=== PATIENT | male | born 1960 | race Caucasian/White ===

== ENCOUNTER 2016-12-28 08:40 | Day surgery (SDC) | payer OTHER ==
[2016-11-21 15:24] LABS: BASO % 0.2 %; BASO ABS # 0.03 K/uL (0-0.2); COMPLETE YES; EOS % 3.9 %; HEMATOCRIT 42.8 % (42-52); IG% 0.4 %; LYMPH % 27.4 %; LYMPH ABS # 3.77 K/uL (1.2-3.4); MEAN CELL VOLUME 84.8 fL (80-100); MEAN CORPUSCULAR HEMOGLOBIN 29.3 pg (25-34); MEAN CORPUSCULAR HGB CONC 34.6 g/dl (32-36); MEAN PLATELET VOLUME 9.1 fL (7.4-10.4); MONO % 5.6 %; NEUT % 62.5 %; PLATELET COUNT 325 K/uL (130-400); RED BLOOD COUNT 5.05 M/uL (4.7-6.1); WHITE BLOOD COUNT 13.75 K/uL (4.8-10.8)
[2016-11-21 15:34] LABS: URINE APPEARANCE CLEAR (CLEAR); URINE BILIRUBIN NEG (NEG); URINE COLOR YELLOW; URINE NITRITE NEG (NEG); URINE PH 5.5 (4.5-7.5); URINE SPECIFIC GRAVITY 1.019 (1.000-1.030); UROBILINOGEN NEG (NEG)
[2016-11-21 15:38] LABS: MANUAL MICROSCOPIC REQUIRED? NO; REVIEW REQ? NO
[2016-11-21 15:40] LABS: BLOOD UREA NITROGEN 16 mg/dl (7-18); BUN/CREATININE RATIO 16.4 (10-20); CALCIUM 9.9 mg/dl (8.5-10.1); CARBON DIOXIDE 30 mmol/L (21-32); CHLORIDE 104 mmol/L (98-107); GLUCOSE 103 mg/dl (70-99); SODIUM 141 mmol/L (136-145)
[2016-12-14 10:27] VITALS: BMI 38.0
--- NOTE | 2016-12-21 09:34 | HISTORY & PHYSICAL EXAMINATION ---
DATE OF ADMISSION: 12/28/2016 CHIEF COMPLAINT: Left shoulder pain. HISTORY OF PRESENT ILLNESS: The patient is a 56-year-old male who is here for left shoulder pain. The patient states that the symptoms were nontraumatic in nature and that the pain is getting worse and more consistent. He describes the pain as aching. The patient has tried cortisone injections and physical therapy without any relief. MRI of the left shoulder shows a near complete full thickness tear of the supraspinatus tendon. PAST MEDICAL HISTORY: Significant for osteoarthritis. PAST SURGICAL HISTORY: Right TKA, SI fusion, L1 through L5 fusion. SOCIAL HISTORY: Denies alcohol use. The patient quit smoking in 2008. Denies IV drug use or illegal drug use. He lives in a 1 story house. Currently on disability. FAMILY HISTORY: Noncontributory. MEDICATIONS: 50 mg Ultram, lorazepam 1 mg. ALLERGIES: CAT DANDER, CODEINE. REVIEW OF SYSTEMS: He denies fevers, chills, headaches, weight loss, double vision, blurry vision, sore throat, hearing loss, tremors, dizziness, numbness or tingling, tired, thirsty, hot and cold intolerance, abdominal pain, nausea, vomiting, diarrhea, heartburn, chest pain, swelling into the legs or feet, frequency, going to the bathroom, pain or burning with urination, wheezing, cough, shortness of breath, depression, thoughts to harm himself or harm others, nervousness or anxiousness. He is positive for joint pain and swelling of the left shoulder. OBJECTIVE: GENERAL APPEARANCE: The patient is a 56-year-old male sitting in exam room, in no acute distress. He is well dressed, well nourished. He is awake, alert and oriented x3. VITAL SIGNS: He is 5 foot 4 inches tall. He weighs 231 pounds. Blood pressure is 138/70. HEAD, EYES, EARS, NOSE, AND THROAT: Extraocular movements are intact, PERRLA, mucosa was moist. No septal deviation. NECK: Supple with no lymphadenopathy, no JVD, no thyromegaly. HEART: Regular rate and rhythm but no murmurs or gallops. LUNGS: Clear to auscultation with no wheezing or rhonchi. ABDOMEN: Soft, nontender, nondistended. Normal bowel sounds. No hepatosplenomegaly. EXTREMITIES: Paying particular attention to the patient's left upper extremity, he is able to actively flex to 150 degrees, abduct to 90 degrees, externally rotate to 75 degrees. He does have a positive Neer impingement, positive Nunes-Morgan, positive empty can test, does have decreased strength in all ranges of motion. IMAGING: MRI of the left shoulder shows a near complete full thickness tear of the supraspinatus tendon, infraspinatus and subscapularis tendinopathy and mild acromioclavicular osteoarthritis. IMPRESSION: Left shoulder rotator cuff tear. PLAN: The patient is scheduled for a left shoulder arthroscopy, rotator cuff repair, subacromial decompression, distal clavicle excision. The patient has noticed that this has decreased his quality of life. He has tried cortisone injections and physical therapy without any relief. He would like to proceed with a left shoulder arthroscopy, rotator cuff repair, subacromial decompression, distal clavicle excision. Risks and benefits to surgery were discussed that were included but not limited to DVT, pain, stiffness, need for revision surgery, failure to relieve all symptoms, retear, damage to blood vessels, damage to nerves, and risks of anesthesia were all discussed and he wishes to proceed. All questions were answered to his satisfaction. ALEJANDRA
[~2016-12-28] VITALS: Ht 165.1 cm; Wt 104.5 kg
[~2016-12-28 08:40] MED LIST: ACET-1256 PO; ASCA500 PO; ATV/1 PO; BUPIVACAINE 0.25% 30 ML VIAL ONE; CHOL1000 PO; GLUC1CAP35 PO; LACTATED RINGER'S 1000ML 1,000 ML IV SCH; MULT-506 PO; ROPIVACAINE 0.5% 5 MG/ML 30 ML VIAL ONE; TRAM-10 PO
[2016-12-28] MEDS ORDERED: ONDANSETRON INJ 2 MG/ML 2 ML VIAL ONE ×2 (09:01→10:45)
[2016-12-28] MEDS ORDERED: PROPOFOL IV EMULSION 10 MG/ML 20 ML VIAL IV ONE ×2 (09:01→11:54)
[2016-12-28] MEDS ORDERED: NEOSTIGMINE METHYLSULFATE 5 MG/5 ML SYR ONE ×2 (09:01→12:15)
[2016-12-28] MEDS ORDERED: GLYCOPYRROLATE INJ 0.2 MG/ML VIAL ONE ×2 (09:01→12:15)
[2016-12-28] MEDS ORDERED: MIDAZOLAM HCL 1 MG/ML 2ML VIAL ONE ×2 (09:01→09:18)
[2016-12-28] MEDS ORDERED: DEXAMETHASONE SOD INJ 4 MG/ML VIAL ONE ×2 (09:01→10:45)
[2016-12-28] MEDS ORDERED: LIDOCAINE HCL 2% 2 ML VIAL (20MG/ML) ONE (09:01)
[2016-12-28] MEDS ORDERED: FENTANYL CITRATE INJ 50 MCG/1 ML 2 ML VIAL ONE ×2 (09:01→10:20)
[2016-12-28] MEDS ORDERED: ROCURONIUM BROMIDE 10 MG/ML 5 ML VIAL ONE (09:01)
[2016-12-28 09:14] VITALS: BP 137/69; PULSE 91; TEMP 36.9; O2SAT 95; Ht 165.1 cm; Wt 104.5 kg
--- NOTE | 2016-12-28 09:25 | History & Physical Bridge Note ---
H&P Re-Evaluation Bridge Note: I have examined the patient, reviewed the History & Physical and in the interval since the performance of the History & Physical I have noted the following changes of clinical significance: No changes noted
[2016-12-28] MEDS ORDERED: NURSING VERBAL MED ORDER ONE ×2 (09:30→13:25)
[2016-12-28] MEDS ORDERED: CEFAZOLIN IV 2,000 MG/60 ML D5W IV ONE (09:34)
[2016-12-28] MEDS ORDERED: BUPIVACAINE 0.5 % 5 MG/1 ML MPF 30ML VIAL ONE (09:51)
[2016-12-28] MEDS ORDERED: LIDOCAINE/EPINEPHRINE 1% 20 ML VIAL ONE (09:51)
[2016-12-28] MEDS ORDERED: EpHEDrine SULFATE INJ 50 MG/ML AMP IV PRN (10:00)
[2016-12-28] MEDS ORDERED: ATROPINE SULFATE 0.1 MG/ML 5ML SYR IV PRN (10:00)
[2016-12-28] MEDS ORDERED: ONDANSETRON INJ 2 MG/ML 2 ML VIAL IV PRN ×2 (10:00→13:30)
[2016-12-28] MEDS ORDERED: PHENYLEPHRINE HCL INJ 10 MG/ML VIAL ONE (10:45)
[2016-12-28] MEDS: HYDROmorphone INJ 1 MG/ML SYR IV PRN ×6 (12:52→13:30)
--- NOTE | 2016-12-28 13:28 | [facility] Post Operative Brief Note ---
Immediate Operative Summary Operative Date Dec 28, 2016. Pre-Operative Diagnosis Left shoulder rotator cuff tear, impingement, ac jt oa, labral tear, synovitis Post-Operative Diagnosis same as preoperative Procedure(s) Performed Left Shoulder Arthroscopy Subacromial Decompression, extensive debridement, Distal Clavicle Excision, Rotator Cuff Repair, extensive debridement Surgeon Dr. Osborne Ux Developer Surgeon(s) Franklin Araiza PA-C Estimated Blood Loss 5ML Findings above Specimens none Drains 0 Anesthesia geta Complication(s) None Disposition Recovery Room / PACU
[2016-12-28] MEDS ORDERED: OXYCODONE HCL IR 5 MG TAB (IMMEDIATE RELEASE) PO PRN (13:30)
[2016-12-28] MEDS ORDERED: ACETAMINOPHEN 325 MG TAB PO PRN (13:30)
[2016-12-28] MEDS ORDERED: OXYC-57 PO (13:40)
--- NOTE | 2016-12-28 13:50 | Discharge Instructions ---
Discharge Instructions Date of Service Dec 28, 2016. Admission Reason for Admission: Left Shoulder Degenerative Joint Disease, Impingem Discharge Discharge Diagnosis / Problem: Left shoulder Rotator cuff repair, SAD, DCE Discharge Goals Goal(s): Decrease discomfort, Improve function Activity Recommendations Activity Limitations: per Instructions/Follow-up section . Instructions / Follow-Up Instructions / Follow-Up [facility] DISCHARGE INSTRUCTIONS: ROTATOR CUFF REPAIR SELF CARE INSTRUCTIONS A. You are permitted to loosen your sling/immobilizer to move your elbow, wrist , and hand to prevent stiffness. You should use your well arm (good arm) to assist the operated extremity when trying to raise the arm away from the body, hygiene purposes. Do NOT actively try to use/engage your shoulder muscles in operative arm at this time. You should NOT do overhead activity, lifting, or attempt to reach behind your back. B. You may/may not be instructed to start Physical Therapy upon discharge depending upon the size and difficulty of the repair. You will be provided a prescription for therapy with specific restrictions, if needed, at time of discharge. C. At 48 hours post-operatively, you may change your dressing. (Leave white steri-strips intact if present). Use band-aids and change daily. You are allowed to shower at this time and get the incision area wet, but DO NOT soak or submerge incision area in water. (No baths, swimming pools, hot tubs) D. Do NOT apply soap or any ointment/lotions directly over incision. E. You may use ice as needed to operative shoulder SPECIAL CARE INSTRUCTIONS: VERY IMPORTANT TO READ AND REVIEW A. There are a few signs you need to watch for after you are home. Call [facility] at [phone] if you experience any of the following: a. Increased severe shoulder pain. Some pain is expected especially when you exercise b. Increased swelling in your shoulder or arm; pain or swelling in either upper extremity. (Note: swelling and stiffness is normal and expected for several weeks post op, depending on type of shoulder surgery you had). c. Any fluid or drainage from the incision; redness of the incision. d. Shortness of breath or chest pain. B. Please call [facility] at [phone] if you have any questions or concerns about your operation or recovery. C. Call your physician if: a. Temperature is greater than 101 degrees (F). b. Pain is not relieved by prescribed pain medications. c. Increase drainage or redness from incision. d. Unanswered questions or concerns. D. Pain Medication: a. You will be prescribed pain medication upon discharge that should last till your first post-operative appointment. b. If you experience nausea and/or skin rash, discontinue this medication and contact our office for an alternative medication. c. Caution- narcotic pain medication can cause constipation. FOLLOW UP VISIT: Please call [facility] at [phone] to schedule a follow up appointment 10-14 days from your surgery date. Current Hospital Diet Patient's current hospital diet: Regular Diet Discharge Diet Recommended Diet: Regular Diet Procedures Procedures Performed: Left Shoulder Arthroscopy Subacromial Decompression, extensive debridement, Distal Clavicle Excision, Rotator Cuff Repair, extensive debridement Pending Studies Studies pending at discharge: no Medical Emergencies . Who to Call and When: Medical Emergencies: If at any time you feel your situation is an emergency, please call 911 immediately. . Non-Emergent Contact Non-Emergency issues call your: Surgeon Call Non-Emergent contact if: temperature is above 101.5, wound has increased drainage, wound has increased redness, wound has increased pain . "Provider Documentation" section prepared by Franklin Araiza. VTE Core Measure Inpt VTE Proph given/why not?: Treatment not indicated [place] Drug Monitoring Program Search Results: patient reviewed within database, no issues identified
--- NOTE | 2016-12-28 13:52 | OPERATIVE REPORT ---
DATE OF OPERATION: 12/28/2016 PREOPERATIVE DIAGNOSES: Left shoulder rotator cuff tear, impingement, acromioclavicular joint arthritis, labral tear, and synovitis. POSTOPERATIVE DIAGNOSES: Same. PROCEDURES: Left shoulder rotator cuff repair, subacromial decompression, distal clavicle excision, and extensive debridement. SURGEON: Dr. Ramakrishna Osborne. FUGITIVE DETECTIVE: Franklin Araiza PA-C who was necessary for assistance of procedure with positioning, prepping, draping, retraction and closure. ANESTHESIA: General endotracheal anesthesia with interscalene block. SPECIMENS: None. COMPLICATIONS: None. ESTIMATED BLOOD LOSS: Minimal. INDICATIONS: The patient is a 56-year-old male with progressive left shoulder pain. MRI demonstrated full thickness rotator cuff tear. He wished to proceed with arthroscopic repair. The risks, benefits, and alternatives of surgery including, but not limited to infection, DVT, pain, stiffness, need for urgent surgery, failure to relieve all symptoms, damage to blood vessels, damage to nerves, and risks of anesthesia were discussed with the patient and he wished to proceed. DESCRIPTION OF PROCEDURE: The patient was identified and the laterality was confirmed and marked. He received a preoperative antibiotic as well as interscalene block. He was transferred to the operating room, placed in supine position, and induced under general endotracheal anesthesia. He was then safely transferred to lateral decubitus position, secured by lara bag and an axillary roll was placed. All pressure points well padded. Limb was placed in 10 pounds of lateral traction and then prepped and draped in usual sterile manner with ChloraPrep. Portal sites were anesthetized with lidocaine. I made a standard posterior viewing portal, made a stab incision, bluntly entered the glenohumeral joint and under spinal localization, established anterior superior lateral portal. He had degenerative change of the anterior superior and posterior aspect of the glenoid labrum. This was debrided back to a stable base utilizing a shaver. The long head of biceps tendon was relatively normal. Subscapularis was intact. He had some minor degenerative changes of the cartilage of the humeral head and glenoid that was debrided. He had full thickness rotator cuff tear seen through articular side. All instrumentations removed from the joint. I then entered the subacromial space and established a lateral portal. I debrided the rotator cuff tear back to good healthy tissue. It measured about 2 cm in diameter after appropriate debridement. Then through a stab incision, I placed a 5.5-mm triple-loaded Healicoil suture anchor, passed the sutures in a horizontal mattress fashion with a scorpion. I then placed an additional suture anchor posteromedially and passed 2 sutures through this. I then tied from posterior to anterior utilizing sliding [place] knots, reinforced with 3 half hitches on alternating posts. I then took one suture limb from each knot, placed it in a 5.5-mm footprint anchor and placed 1 anterolaterally and another posterolaterally completing double-row construct. I then released the CA ligament with cautery and performed a subacromial decompression first removing the anterior inferior spur from laterally and then completing with a cutting block technique. I then performed a distal clavicle excision, removing a total of 10 mm of bone. All instrumentation was removed from the shoulder. Port sites were closed with nylon. Sterile dressing was applied and sling placed. All needle and sponge counts were correct at the end of the procedure. The patient was transferred to the PACU in stable condition without apparent complication. I attest to the content of the Intraoperative Record and any orders documented therein. Any exceptio ns are noted below.
[2016-12-28 14:00] VITALS: BP 118/66; PULSE 106; TEMP 36.5; O2SAT 93
[2016-12-28 14:30] VITALS: BP 113/50; PULSE 99; O2SAT 93
[2016-12-28 15:00] VITALS: BP 113/50; PULSE 101; TEMP 36.5; O2SAT 94
--- NOTE | 2016-12-28 17:20 | Anesthesiology Progress Note ---
Anesthesia Post Op Note Date & Time Dec 28, 2016 at 17:21 Vital Signs Pain Intensity: 6 Vital Signs Past 12 Hours Date Time Temp Pulse Resp B/P Pulse Ox O2 Delivery O2 Flow Rate FiO2 12/28/16 15:00 36.5 101 20 113/50 94 Room Air 12/28/16 14:30 99 20 113/50 93 Room Air 12/28/16 14:00 36.5 106 20 118/66 93 Room Air 12/28/16 13:50 36.2 90 16 131/74 94 Room Air 12/28/16 13:40 36.2 81 16 138/78 93 Nasal Cannula 2 12/28/16 13:30 93 16 130/82 93 Nasal Cannula 2 12/28/16 13:20 96 16 152/69 91 Nasal Cannula 2 12/28/16 13:10 93 16 134/63 91 Nasal Cannula 2 12/28/16 13:00 91 13 134/66 87 Mask 2 12/28/16 12:50 91 16 146/62 90 Mask 10 12/28/16 12:40 36.2 98 18 154/78 90 Mask 10 12/28/16 09:14 36.9 91 20 137/69 95 Room Air Notes Mental Status: alert / awake / arousable, participated in evaluation Pt Amnestic to Procedure: Yes Nausea / Vomiting: adequately controlled Pain: adequately controlled Airway Patency, RR, SpO2: stable & adequate BP & HR: stable & adequate Hydration State: stable & adequate Anesthetic Complications: no major complications apparent
[2017-04-25] MEDS ORDERED: IBUP1CAP9 PO (13:56)
[2017-04-25] MEDS ORDERED: TRAM-10 PO (13:56)
[2017-04-25] MEDS ORDERED: NAPR-960 PO (13:56)
== END 2016-12-28 15:00 | disposition home or self-care (01) ==
LOC: C.ACU 08:40
PROVIDERS: ATTEND Orthopaedic Surgery
DX: M75.102 Unspecified rotator cuff tear or rupture of left shoulder, not specified as traumatic (principal); M75.42 Impingement syndrome of left shoulder; M19.012 Primary osteoarthritis, left shoulder; M65.9 Synovitis and tenosynovitis, unspecified; M17.9 Osteoarthritis of knee, unspecified; Z98.1 Arthrodesis status

== ENCOUNTER 2017-09-16 08:47 | Emergency (ER) | payer OTHER ==
[~2017-09-16 08:47] MED LIST changes: -BUPIVACAINE 0.25% 30 ML VIAL ONE; +IBUP1CAP9 PO; -LACTATED RINGER'S 1000ML 1,000 ML IV SCH; +NAPR-960 PO; -ROPIVACAINE 0.5% 5 MG/ML 30 ML VIAL ONE
[2017-09-16 08:52] VITALS: TEMP 36.8
[2017-09-16] MEDS ORDERED: MoRPHine SULFATE 4 MG/ML 1 ML CARP\\VIAL IV STA ×2 (09:03→10:58)
[2017-09-16] MEDS ORDERED: OPTIRAY 320 IV PRN (09:15)
[2017-09-16 09:31] LABS: BASO % 0.2 %; BASO ABS # 0.04 K/uL (0-0.2); COMPLETE YES; EOS % 4.3 %; HEMATOCRIT 39.8 % (42-52); IG% 0.6 %; LYMPH % 9.5 %; LYMPH ABS # 1.96 K/uL (1.2-3.4); MEAN CELL VOLUME 86.7 fL (80-100); MEAN CORPUSCULAR HEMOGLOBIN 29.4 pg (25-34); MEAN CORPUSCULAR HGB CONC 33.9 g/dl (32-36); MONO % 4.3 %; NEUT % 81.1 %; PLATELET COUNT 324 K/uL (130-400); RED BLOOD COUNT 4.59 M/uL (4.7-6.1); WHITE BLOOD COUNT 20.66 K/uL (4.8-10.8)
[2017-09-16 09:45] LABS: PARTIAL THROMBOPLASTIN RATIO 1.2; PROTHROMBIN TIME (PATIENT) 10.7 SECONDS (9.0-12.0)
--- NOTE | 2017-09-16 09:55 | DIAGNOSTIC IMAGING REPORT ---
L RIBS UNILATERAL WITH PA CHEST (5 views) CLINICAL HISTORY: Left-sided chest pain. COMPARISON STUDY: No previous studies for comparison. FINDINGS: The erect chest reveals no pneumothorax. There is no lobar consolidation. No left-sided rib fractures are visualized. There are presumed postsurgical changes involve the distal left clavicle. IMPRESSION: No evidence of pneumothorax. No left-sided rib fractures are visualized. Electronically signed by: Keenan Boyle M.D. 09/16/2017 9:54 AM Dictated Date/Time: 09/16/2017 9:53 AM
[2017-09-16 10:02] LABS: ALKALINE PHOSPHATASE 118 U/L (45-117); ALT/SGPT 40 U/L (12-78); AST/SGOT 29 U/L (15-37); BLOOD UREA NITROGEN 18 mg/dl (7-18); BUN/CREATININE RATIO 21.8 (10-20); CALCIUM 8.7 mg/dl (8.5-10.1); CARBON DIOXIDE 26 mmol/L (21-32); CHLORIDE 104 mmol/L (98-107); CREATININE 0.84 mg/dl (0.60-1.40); GLUCOSE 160 mg/dl (70-99); POTASSIUM 4.5 mmol/L (3.5-5.1); SODIUM 134 mmol/L (136-145)
--- NOTE | 2017-09-16 10:52 | DIAGNOSTIC IMAGING REPORT ---
ABD/PELVIS IV CONTRAST ONLY CLINICAL HISTORY: 57 years-old Male presenting with left lower rib pain/fx, abd wall bruising, coughing for 2 to 3 days, generalized pain in the abdomen, altered mental status. TECHNIQUE: Multidetector CT of the abdomen and pelvis was performed after the administration of intravenous contrast. IV contrast: 94 mL of Optiray 320. A dose lowering technique was used consistent with the principles of ALARA (as low as reasonably achievable). COMPARISON: None. CT DOSE (mGy.cm): The estimated cumulative dose is 1582.05 mGy.cm. FINDINGS: Clinical Care Leader topogram: Posterior lumbar fusion hardware and screw fixation of the left sacroiliac joint. Lung bases: Slight herniation of the left lower lobe through the eighth intercostal space along the posterior lateral left chest wall. Dependent opacities in the left lower lobe with smooth interlobular septal thickening. The right lung demonstrates only minimal dependent changes consistent with atelectasis and no septal thickening. Mitral annular calcification suggested. High density dependent material within the left pleural effusion concerning for hemothorax. Liver: Normal morphology. No liver lesion. Patent hepatic vasculature. Biliary: No intrahepatic or extrahepatic biliary ductal dilatation. Normal gallbladder. Pancreas: Normal. Spleen: Normal. Adrenal glands: Normal. Kidneys and ureters: Punctate nonobstructing calculus in the right kidney. No hydronephrosis. Normal renal enhancement. Ureters normal. Bladder: Normal. Pelvic organs: Prostate and seminal vesicles normal. Bowel: Few scattered colonic diverticula in the descending and sigmoid colon. Mild stool burden in the cecum. Fecal material in the distal small bowel and terminal ileum consistent with delayed transit. Normal appendix noted. Peritoneal cavity: No free fluid or intraperitoneal gas. Lymph nodes: Few subcentimeter bilateral external iliac lymph nodes likely reactive. Additional few prominent portacaval lymph nodes possibly also reactive. Vasculature: Atherosclerosis of the normal caliber abdominal aorta. IVC patent. Abdominal wall: Extensive infiltration and chest and abdominal wall muscular edema along the lower left posterior lateral chest as well as the left flank and left anterolateral abdomen. Skin thickening noted in the lower left ventral abdomen. No focal soft tissue hematoma. Musculoskeletal: 3 screw fixation across the left sacroiliac joint. Posterior lumbar fusion hardware with interbody spacers noted in the lower lumbar spine. Radiolucency surrounds the bilateral L3 screws, raising concern for loosening or infection. Laminectomy defects also noted at these levels. No commencing evidence of a nondisplaced rib fracture within the visualized portion of the lower chest. IMPRESSION: 1. Findings concerning for small left hemothorax. The presence of asymmetric opacities and interlobular septal thickening in the left lung base raise concern for pulmonary contusion in the setting of trauma. Slight herniation of left lung may be posttraumatic. No evidence of rib fracture within the [id number]. 2. Extensive left chest and abdominal wall contusion with muscular edema. 3. No acute intra-abdominal injury. 4. Radiolucency surrounds the bilateral L3 screws raising concern for loosening or infection. Electronically signed by: Ramakrishna Herrera M.D. 09/16/2017 10:51 AM Dictated Date/Time: 09/16/2017 10:41 AM
[2017-09-16] MEDS ORDERED: LEVOFLOXACIN 250 MG TAB PO STA (11:03)
[2017-09-16] MEDS ORDERED: LEVO-366 PO (11:13)
[2017-09-16] MEDS ORDERED: OXYC-106 PO (11:13)
--- NOTE | 2017-09-16 11:13 | EMERGENCY ROOM VISIT NOTE ---
History Report prepared by Jamal: Vivienne Galeana Under the Supervision of: Dr. Jensen Mensah D.O. First contact with patient: 08:59 Chief Complaint: PAIN (GENERALIZED) Stated Complaint: PAIN EVERYWHERE History of Present Illness The patient is a 57 year old male who presents to the Emergency Room with complaints of persistent generalized pain that began three days ago. The patient states that three days ago he sneezed and states that he felt as if he broke a rib. He states that he has been trying to deal with the pain, but states that he woke this morning with increased pain. The patient states that he feels he is bleeding internally. He states that his pain is worsened with movement. The patient states that he has a bruise to his left abdomen. He states that he recently was sick with flu like symptoms. Per nursing staff the patient took his own Tramadol today when he arrived to the emergency department. The patient states that he takes Tramadol for his chronic pain. He denies being on any blood thinners. Source of History: patient Onset: three days ago Position: other (global) Quality: other (generalized pain) Timing: other (persistent) Modifying Factors (Worsening): movement Review of Systems See HPI for pertinent positives & negatives. A total of 10 systems reviewed and were otherwise negative. Past Medical & Surgical Surgical Problems: (1) S/P TKR (total knee replacement) Family History No pertinent family history stated. Social History Smoking Status: Unknown if Ever Smoked Marital Status: single Occupation Status: unemployed, disabled Current/Historical Medications Scheduled Levofloxacin (Levaquin), 500 MG PO DAILY Scheduled PRN Lorazepam (Ativan), 1 MG PO Q6H PRN for Anxiety Oxycodone/Acetaminophen 10MG/325MG (Percocet 10MG/325MG), 1 TAB PO Q4H PRN for Pain Tramadol (Ultram), 50 MG PO Q8 PRN for Pain Allergies Coded Allergies: Cat Dander (Verified Allergy, Unknown, ITCHY EYES, SNEEZING, 09/16/17) Codeine (Verified Allergy, Unknown, GI SYMPTOMS, 09/16/17) Pt. states stomach upset and requests not to take it Physical Exam Vital Signs Date Time Temp Pulse Resp B/P (MAP) Pulse Ox O2 Delivery O2 Flow Rate FiO2 09/16/17 11:12 89 18 134/80 93 Room Air 09/16/17 10:48 88 20 131/78 93 Room Air 09/16/17 10:07 85 09/16/17 08:52 36.8 92 20 155/82 94 Room Air Physical Exam CONSTITUTIONAL/VITAL SIGNS: Reviewed / noted above. GENERAL: Non-toxic in appearance. INTEGUMENTARY: Warm, dry, and [place]. HEAD: Normocephalic. EYES: without scleral icterus or trauma. ENT/OROPHARYNX: clear and moist. LYMPHADENOPATHY/NECK: Is supple without lymphadenopathy or meningismus. CHEST WALL: Tenderness to palpation of left lower chest wall. RESPIRATORY: Lungs clear and equal. CARDIOVASCULAR: Regular rate and rhythm. GI/ABDOMEN: Soft and tender to left side of the abdomen. Large area of ecchymosis to the left lower quadrant. No organomegaly or pulsatile mass. No rebound or guarding. Normal bowel sounds. EXTREMITIES: Warm and well perfused. BACK: No CVA tenderness. NEUROLOGICAL: Intact without focal deficits. PSYCHIATRIC: normal affect. MUSCULOSKELETAL: Normally developed with good muscle tone. Medical Decision & Procedures ER Provider Diagnostic Interpretation: Radiology results as stated below per my review and radiologist interpretation: L RIBS UNILATERAL WITH PA CHEST (5 views) CLINICAL HISTORY: Left-sided chest pain. COMPARISON STUDY: No previous studies for comparison. FINDINGS: The erect chest reveals no pneumothorax. There is no lobar consolidation. No left-sided rib fractures are visualized. There are presumed postsurgical changes involve the distal left clavicle. IMPRESSION: No evidence of pneumothorax. No left-sided rib fractures are visualized. Electronically signed by: Keenan Boyle M.D. 09/16/2017 9:54 AM Dictated Date/Time: 09/16/2017 9:53 AM ABD/PELVIS IV CONTRAST ONLY CLINICAL HISTORY: 57 years-old Male presenting with left lower rib pain/fx, abd wall bruising, coughing for 2 to 3 days, generalized pain in the abdomen, altered mental status. TECHNIQUE: Multidetector CT of the abdomen and pelvis was performed after the administration of intravenous contrast. IV contrast: 94 mL of Optiray 320. A dose lowering technique was used consistent with the principles of ALARA (as low as reasonably achievable). COMPARISON: None. CT DOSE (mGy.cm): The estimated cumulative dose is 1582.05 mGy.cm. 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 Lung bases: Slight herniation of the left lower lobe through the eighth intercostal space along the posterior lateral left chest wall. Dependent opacities in the left lower lobe with smooth interlobular septal thickening. The right lung demonstrates only minimal dependent changes consistent with atelectasis and no septal thickening. Mitral annular calcification suggested. High density dependent material within the left pleural effusion concerning for hemothorax. Liver: Normal morphology. No liver lesion. Patent hepatic vasculature. Biliary: No intrahepatic or extrahepatic biliary ductal dilatation. Normal gallbladder. Pancreas: Normal. Spleen: Normal. Adrenal glands: Normal. Kidneys and ureters: Punctate nonobstructing calculus in the right kidney. No hydronephrosis. Normal renal enhancement. Ureters normal. Bladder: Normal. Pelvic organs: Prostate and seminal vesicles normal. Bowel: Few scattered colonic diverticula in the descending and sigmoid colon. Mild stool burden in the cecum. Fecal material in the distal small bowel and terminal ileum consistent with delayed transit. Normal appendix noted. Peritoneal cavity: No free fluid or intraperitoneal gas. Lymph nodes: Few subcentimeter bilateral external iliac lymph nodes likely reactive. Additional few prominent portacaval lymph nodes possibly also reactive. Vasculature: Atherosclerosis of the normal caliber abdominal aorta. IVC patent. Abdominal wall: Extensive infiltration and chest and abdominal wall muscular edema along the lower left posterior lateral chest as well as the left flank and left anterolateral abdomen. Skin thickening noted in the lower left ventral abdomen. No focal soft tissue hematoma. Musculoskeletal: 3 screw fixation across the left sacroiliac joint. Posterior lumbar fusion hardware with interbody spacers noted in the lower lumbar spine. Radiolucency surrounds the bilateral L3 screws, raising concern for loosening or infection. Laminectomy defects also noted at these levels. No commencing evidence of a nondisplaced rib fracture within the visualized portion of the lower chest. IMPRESSION: 1. Findings concerning for small left hemothorax. The presence of asymmetric opacities and interlobular septal thickening in the left lung base raise concern for pulmonary contusion in the setting of trauma. Slight herniation of left lung may be posttraumatic. No evidence of rib fracture within the [id number]. 2. Extensive left chest and abdominal wall contusion with muscular edema. 3. No acute intra-abdominal injury. 4. Radiolucency surrounds the bilateral L3 screws raising concern for loosening or infection. Electronically signed by: Ramakrishna Herrera M.D. 09/16/2017 10:51 AM Dictated Date/Time: 09/16/2017 10:41 AM Laboratory Results 09/16/17 09:20 Red Blood Count 4.59, Mean Corpuscular Volume 86.7, Mean Corpuscular Hemoglobin 29.4, Mean Corpuscular Hemoglobin Concent 33.9, Mean Platelet Volume 9.0, Neutrophils (%) (Auto) 81.1, Lymphocytes (%) (Auto) 9.5, Monocytes (%) (Auto) 4.3, Eosinophils (%) (Auto) 4.3, Basophils (%) (Auto) 0.2, Neutrophils # (Auto) 16.78, Lymphocytes # (Auto) 1.96, Monocytes # (Auto) 0.88, Eosinophils # (Auto) 0.88, Basophils # (Auto) 0.04 09/16/17 09:20 Test 09/16/17 09:20 White Blood Count 20.66 K/uL (4.8-10.8) Red Blood Count 4.59 M/uL (4.7-6.1) Hemoglobin 13.5 g/dL (14.0-18.0) Hematocrit 39.8 % (42-52) Mean Corpuscular Volume 86.7 fL (80-100) Mean Corpuscular Hemoglobin 29.4 pg (25-34) Mean Corpuscular Hemoglobin Concent 33.9 g/dl (32-36) Platelet Count 324 K/uL (130-400) Mean Platelet Volume 9.0 fL (7.4-10.4) Neutrophils (%) (Auto) 81.1 % Lymphocytes (%) (Auto) 9.5 % Monocytes (%) (Auto) 4.3 % Eosinophils (%) (Auto) 4.3 % Basophils (%) (Auto) 0.2 % Neutrophils # (Auto) 16.78 K/uL (1.4-6.5) Lymphocytes # (Auto) 1.96 K/uL (1.2-3.4) Monocytes # (Auto) 0.88 K/uL (0.11-0.59) Eosinophils # (Auto) 0.88 K/uL (0-0.5) Basophils # (Auto) 0.04 K/uL (0-0.2) RDW Standard Deviation 43.0 fL (36.4-46.3) RDW Coefficient of Variation 13.6 % (11.5-14.5) Immature Granulocyte % (Auto) 0.6 % Immature Granulocyte # (Auto) 0.12 K/uL (0.00-0.02) Prothrombin Time 10.7 SECONDS (9.0-12.0) Prothromb Time International Ratio 1.0 (0.9-1.1) Activated Partial Thromboplast Time 30.3 SECONDS (21.0-31.0) Partial Thromboplastin Ratio 1.2 Anion Gap 4.0 mmol/L (3-11) Estimated GFR () 111.9 Estimated GFR (Non- 96.5 BUN/Creatinine Ratio 21.8 (10-20) Calcium Level 8.7 mg/dl (8.5-10.1) Total Bilirubin 0.5 mg/dl (0.2-1) Direct Bilirubin 0.1 mg/dl (0-0.2) Aspartate Amino Transf (AST/SGOT) 29 U/L (15-37) Alanine Aminotransferase (ALT/SGPT) 40 U/L (12-78) Alkaline Phosphatase 118 U/L (45-117) Troponin I < 0.015 ng/ml (0-0.045) Total Protein 7.0 gm/dl (6.4-8.2) Albumin 3.3 gm/dl (3.4-5.0) Lipase 97 U/L (73-393) Laboratory results as stated above per my review. Medications Administered Medications (Trade) Dose Ordered Sig/Feliciano Route Start Time Stop Time Status Last Admin Dose Admin Morphine Sulfate (MoRPHine SULFATE INJ) 4 mg NOW STAT IV 09/16/17 09:03 09/16/17 09:06 DC 09/16/17 09:20 4 MG Morphine Sulfate (MoRPHine SULFATE INJ) 4 mg NOW STAT IV 09/16/17 10:58 09/16/17 10:59 DC 09/16/17 11:12 4 MG Levofloxacin (Levaquin Tab) 500 mg NOW STAT PO 09/16/17 11:03 09/16/17 11:04 DC 09/16/17 11:13 500 MG ED Course 0900: Previous medical records were reviewed. The patient was evaluated in room B4B. A complete history and physical examination was performed 0903: Ordered Morphine Sulfate 4 mg IV. 1058: Ordered Morphine Sulfate 4 mg IV. 1103: Ordered Levofloxacin 500 mg PO. 1105: I reevaluated the patient and he is resting comfortably. I discussed the test results with him and I discussed the treatment plan. He verbalized complete understanding and agreement. The patient is ready to go home. Medical Decision The patient is a 57 year old male who presents to the ED with complaints of generalized pain. Differential diagnosis includes rib fracture, torn muscle, ruptured blood muscle, abdominal bleeding This is a 57-year-old male who presents the ED with a chief complaint of left lower chest wall and left abdominal pain. The patient reports that his symptoms started after sneezing several days ago. It worsened over the past 24- 48 hours. His exam reveals tenderness to the left chest wall and left abdominal region. There is some noted ecchymosis to the left lower abdominal region. A chest x-ray and CT scan of the abdomen were performed. This revealed a small left hemothorax and possible pulmonary contusion. There was also noted to be contusions in the left chest and abdominal wall. There is muscular edema. The patient's white blood cell count was 20.6. Hemoglobin is 13.5. Complete metabolic panel was unremarkable. The patient was given morphine for pain. Because of his leukocytosis as well as his recent chest wall injury, he will be started on Levaquin. He does not appear to be septic or toxic or infected at this time. He has no fevers. The patient will be discharged on Percocet. He is felt to be stable for discharge with outpatient follow-up. He will return if he gets worse. Medication Reconcilliation Current Medication List: was personally reviewed by me Blood Pressure Screening Patient's blood pressure: Elevated blood pressure Blood pressure disposition: Elevated BP felt to be situational, Did not require urgent referral Impression Primary Impression: Contusion of left chest wall Additional Impressions: Abdominal wall contusion Hemothorax Leukocytosis Scribe Attestation The scribe's documentation has been prepared under my direction and personally reviewed by me in its entirety. I confirm that the note above accurately reflects all work, treatment, procedures, and medical decision making performed by me. Departure Information Dispostion Home / Self-Care Prescriptions Oxycodone/Acetaminophen 10MG/325MG (PERCOCET 10MG/325MG) Tab 1 TAB PO Q4H Y for Pain, #30 TAB Prov: Jensen Mensah D.O. 09/16/17 Levofloxacin (Levaquin) 500 Mg Tab 500 MG PO DAILY for 10 Days, #10 TAB Prov: Jensen Mensah D.O. 09/16/17 Referrals Umer Ward MD (PCP) Forms HOME CARE DOCUMENTATION FORM, IMPORTANT VISIT INFORMATION, WORK / SCHOOL INSTRUCTIONS Patient Instructions My [facility] [place] [employer] Additional Instructions Levaquin as prescribed. Percocet as prescribed. No driving within 6 hours of use. Do not take additional Tylenol while taking Percocet. Follow-up with your doctor for further care and evaluation in 1-2 days. Return to the emergency department for worsening or new symptoms or any concerns. You have been examined and treated today on an emergency basis only. This is not a substitute for, or an effort to provide, complete comprehensive medical care. It is impossible to recognize and treat all injuries or illnesses in a single emergency department visit. It is therefore important that you follow up closely with your doctor. Call as soon as possible for an appointment. Problem Qualifiers
[2017-09-16 11:36] VITALS: BP 134/80; PULSE 89; O2SAT 93
== END 2017-09-16 11:38 | disposition home or self-care (01) ==
LOC: EDBD 08:47 → C.EDB 08:50
DX: S20.212A Contusion of left front wall of thorax, initial encounter (principal); S30.1XXA Contusion of abdominal wall, initial encounter; S27.1XXA Traumatic hemothorax, initial encounter; D72.829 Elevated white blood cell count, unspecified; X58.XXXA Exposure to other specified factors, initial encounter; G89.29 Other chronic pain; Z96.659 Presence of unspecified artificial knee joint

== ENCOUNTER → 2017-11-06 | Day surgery (SDC) | payer OTHER ==
[2017-09-24 11:42] VITALS: Ht 166.4 cm; Wt 102.3 kg
[~2017-11-06] VITALS: Ht 166.4 cm; Wt 102.3 kg
[~2017-11-06] MED LIST changes: +ATOR10TA82 PO; +BENZ100C84 PO; +GFNSR600 PO; -GLUC1CAP35 PO; +GLUCTAB7 PO; +IBUP-1050 PO; -IBUP1CAP9 PO; +LEVO1TAB33 PO; +LIDOCAINE HCL 1% MPF 5 ML VIAL ONE; +NAPR-1007 PO; -NAPR-960 PO; +OXYC-59 PO; +PSEU120T31 PO; +SODIUM CHLORIDE 0.9% INJ 10 ML VIAL ONE; +ZINC50TA3 PO
--- NOTE | 2017-11-06 15:35 | [facility] Post Operative Brief Note ---
Immediate Operative Summary Operative Date Nov 06, 2017. Pre-Operative Diagnosis Post-laminectony syndrome with chronic radicular pain Post-Operative Diagnosis same Procedure(s) Performed Epidural Caudal Steroid Injection Surgeon Dr Naveed Campbell Recreation Specialist Surgeon(s) none Estimated Blood Loss 0 Findings Consistent with Post-Op Diagnosis Specimens NA Anesthesia Type Local Disposition Disposition:
--- NOTE | 2017-11-06 15:37 | Discharge Instructions ---
Discharge Instructions Date of Service Nov 06, 2017. Visit Reason for Visit: Lumbar Radiculopathy Discharge Discharge Diagnosis / Problem: Leg pain Discharge Goals Goal(s): Decrease discomfort, Improve function Activity Recommendations Activity Limitations: resume your previous activity Anesthesia . Post Anesthesia Instructions: If you have had General Anesthesia or IV Sedation: * Do not drive today. * Resume driving when surgeon permits. * Do not make important decisions or sign legal documents today. * Call surgeon for: 1. Temperature elevations greater than 101 degrees F. 2. Uncontrollable pain. 3. Excessive bleeding. 4. Persistent nausea and vomiting. 5. Medication intolerance (nausea, vomiting or rash). * For nausea and vomiting use only clear liquids such as: tea, soda, bouillon until nausea subsides, then gradually increase diet as tolerated. * If you have any concerns or questions, call your surgeon's office. If physician is unavailable and it is an emergency, call 911 or go to the nearest emergency room. . Diet Recommendations Recommended Home Diet: resume previous diet Procedures Procedures Performed: Epidural Caudal Steroid Injection Pending Studies Studies pending at discharge: no Medical Emergencies . Who to Call and When: Medical Emergencies: If at any time you feel your situation is an emergency, please call 911 immediately. . Non-Emergent Contact Non-Emergency issues call your: Specialist . . "Provider Documentation" section prepared by Naveed Campbell. .
[2017-11-06 15:54] VITALS: BP 149/84; PULSE 83; O2SAT 96
--- NOTE | 2017-11-06 19:23 | OPERATIVE REPORT ---
DATE OF OPERATION: 11/06/2017 PREOPERATIVE DIAGNOSIS: Post-laminectomy syndrome with chronic radicular pain. POSTOPERATIVE DIAGNOSIS: Same. PROCEDURE: Caudal epidural steroid injection under fluoroscopic guidance. INDICATIONS: The patient is a 57-year-old white male who has not responded to conservative measures including gabapentin for chronic radicular pain. He presents today for a caudal epidural injection to provide him with relief. PHYSICAL EXAMINATION: Pleasant male seated comfortably. Lumbar paraspinal muscles were palpated and noted to be nontender. Some mild sensitivity was noted and this was in the sciatic notch. A well-healed incision. Negative seated straight leg raise, intact sensation distally. CONSENT: Verbal and written consent was obtained from the patient. Risks and benefits were reviewed. Risks include but are not limited to epidural abscess and allergic reaction. The patient wishes to proceed. DESCRIPTION OF PROCEDURE: The patient was taken back to the special procedures room of the [facility] where he was maintained in a prone position. Backside was cleansed with Betadine x3 and a dry sterile dressing was applied. Fluoroscope was used to identify the sacral hiatus and the overlying skin was anesthetized with 4 mL of lidocaine 1% with a 25 gauge 1.5-inch needle. A 25 gauge 3.5 inch spinal needle was then directed under lateral fluoroscopic guidance into the canal. Given his body habitus and the angle it was difficult to advance and decision was made to do a 22 gauge 5-inch needle as this would better reach. I was able to enter about a half an inch to 3/4 of an inch into the canal and it was injected with 40 mg of Depo-Medrol and 4 mL of preservative free sodium chloride. Injection was well tolerated. DISPOSITION: 1. The patient is taken out into the discharge recovery area where he will be discharged home once discharge criteria have been met. 2. Follow up in the [facility] office in 2-4 weeks. I attest to the content of the Intraoperative Record and any orders documented therein. Any exception s are noted below.
== END | disposition home or self-care (01) ==
LOC: X.SURG 14:05
PROVIDERS: ATTEND Physical Medicine & Rehabilitation
DX: M96.1 Postlaminectomy syndrome, not elsewhere classified (principal); M54.16 Radiculopathy, lumbar region

== ENCOUNTER → 2017-11-29 | Outpatient (CLI) | payer OTHER ==
[~2017-11-29] MED LIST changes: -BENZ100C84 PO; -GFNSR600 PO; -LEVO1TAB33 PO; -LIDOCAINE HCL 1% MPF 5 ML VIAL ONE; -OXYC-59 PO; -SODIUM CHLORIDE 0.9% INJ 10 ML VIAL ONE
--- NOTE | 2017-11-29 14:03 | DIAGNOSTIC IMAGING REPORT ---
PA CHEST WITH LEFT-SIDED RIB SERIES CLINICAL HISTORY: Pleurodynia. FINDINGS: A PA chest radiograph with 5 additional views may left-sided rib series is compared to study dated 09/16/2017. The PA view is degraded by apical lordotic positioning. The heart is top normal for projection. The pulmonary vasculature is noncongested. There is a small left pleural effusion with left basilar atelectasis. The lungs are otherwise clear. No pneumothorax is seen. There are subacute/healing left posterior 6th through 8th rib fractures. No additional left-sided rib fracture is seen on the rib series. There is chronic posttraumatic deformity of the right clavicle. IMPRESSION: 1. There is a small left pleural effusion with left basilar atelectasis. 2. There are subacute/healing left posterolateral 6th through 8th rib fractures. Electronically signed by: Arian Mendoza M.D. 11/29/2017 2:01 PM Dictated Date/Time: 11/29/2017 1:57 PM
== END | disposition home or self-care (01) ==
LOC: C.RAD1850 13:34
PROVIDERS: ATTEND Student in an Organized Health Care Education/Training Program
DX: R07.81 Pleurodynia (principal); J90 Pleural effusion, not elsewhere classified; J98.11 Atelectasis; S22.42XD Multiple fractures of ribs, left side, subsequent encounter for fracture with routine healing; X58.XXXD Exposure to other specified factors, subsequent encounter; Z88.6 Allergy status to analgesic agent; Z91.048 Other nonmedicinal substance allergy status

== ENCOUNTER → 2018-02-21 | Outpatient (CLI) | payer OTHER ==
--- NOTE | 2018-02-21 10:41 | DIAGNOSTIC IMAGING REPORT ---
RIBS UNILATERAL WITH PA CHEST CLINICAL HISTORY: 58 years-old Male presenting with R07.81 left rib pain, history of fracture. TECHNIQUE: Frontal and oblique views of the left ribs were obtained as well as PA view of the chest. COMPARISON: Chest x-ray from 09/19/2016. FINDINGS: Atherosclerosis of aortic arch. Cardiac silhouette top normal in size. Left pleural/extrapleural thickening is new from prior. No focal opacity in the lungs. No large effusion or pneumothorax. Cortical irregularity of the posterior lateral right eighth rib is unchanged from prior and consistent with chronic fracture deformity. No displaced left rib fracture. IMPRESSION: 1. Left pleural/extrapleural thickening is new from prior. No subjacent displaced rib fracture is apparent. 2. Old right rib fracture. 3. No acute cardiopulmonary disease apart from the pleural thickening. Electronically signed by: Ramakrishna Herrera M.D. 02/21/2018 10:40 AM Dictated Date/Time: 02/21/2018 10:37 AM
== END | disposition home or self-care (01) ==
LOC: C.RAD1850 10:18
PROVIDERS: ATTEND Family Medicine
DX: R07.81 Pleurodynia (principal); J92.9 Pleural plaque without asbestos

== ENCOUNTER 2020-09-12 07:56 | Inpatient (IN) ==
--- NOTE | 2020-08-22 08:38 | PAT Medication Instructions ---
Medication Instructions Date of Service August 22, 2020 Home Medications Tramadol (Ultram) 50 mg PO Q8 PRN Acetaminophen (Tylenol) 1,000 mg PO Q6H PRN Ascorbic Acid (Vitamin C) 1,000 mg PO QAM CHOLECALCIFEROL (VITAMIN D3) 1 tab PO QAM [id number] C- (GLUCOSAMINE CHONDROITIN) 1 tab PO QAM Multivitamin 1 tab PO QAM Naproxen Sodium 1 tab PO QID PRN ZINC 1 tab PO QAM Medical Marijuana 1 inh INHALATION DAILY PRN oxycodone-acetaminophen [Percocet] 1 tab PO Q6H PRN ASK your surgeon for instructions Naproxen Sodium 1 tab PO QID PRN STOP taking 2 weeks before surgery (or as soon as possible if surgery is within 2 weeks) [id number] C- (GLUCOSAMINE CHONDROITIN) 1 tab PO QAM DO NOT take the morning of surgery Ascorbic Acid (Vitamin C) 1,000 mg PO QAM CHOLECALCIFEROL (VITAMIN D3) 1 tab PO QAM Multivitamin 1 tab PO QAM ZINC 1 tab PO QAM Medical Marijuana 1 inh INHALATION DAILY PRN Take morning of surgery With a small sip of water, OTHERWISE NOTHING TO EAT OR DRINK AFTER MIDNIGHT: Tramadol (Ultram) 50 mg PO Q8 PRN (okay to take up to 4 hours prior to surgery if needed) Acetaminophen (Tylenol) 1,000 mg PO Q6H PRN (okay to take up to 4 hours prior to surgery if needed) oxycodone-acetaminophen [Percocet] 1 tab PO Q6H PRN (okay to take up to 4 hours prior to surgery if needed) Other Notes If you have any questions please call us at [phone] or [phone] or [phone] or [phone]
--- NOTE | 2020-08-23 09:38 | Anesthesiology Consultation ---
Date of Service August 23, 2020 Assessment & Plan (1) Encounter for pre-operative examination: Per assessment on 08/23: Travel screen negative. No known COVID-19 positive cont acts or current COVID-19 related symptoms. Surgeon arranging preop COVID testing (scheduled 09/05; [facility]). Awaiting results. Chart Review Chart Review: Acceptable Risk for Surgery (surgeon-ordered cardiology clearance) and Patient seen in Pre Admission Testing Teaching & Discussion Pre-Anesthesia Teaching/Discussion Notes: Instructed NPO after midnight before surgery,except medications with 15 cc of water. Medication instructions provided according to the PAT guidelines. History Surgery Operation Date: 09/09/20 07:45 Proposed Procedures p L2-L3 Decompression, L2-L4 Fusion, L3-1 Hardware Removal, Spinal Cord Monitoring - Naveed Clarke, Height/Weight Height: 5 ft 5 in Weight: 102 kg Allergies Allergy/AdvReac Type Severity Reaction Status Date / Time cat dander Allergy Unknown itchy Verified 08/23/20 09:35 eyes, sneezing codeine AdvReac Unknown GI upset Verified 08/23/20 09:35 Medications Home Medications Medication Instructions Recorded Confirmed Last Taken Tramadol (Ultram) 50 mg PO Q8 PRN #0 04/25/17 08/19/20 Unknown Acetaminophen (Tylenol) 1,000 mg PO Q6H PRN #0 09/24/17 08/19/20 Unknown Ascorbic Acid (Vitamin C) 1,000 mg PO QAM #0 09/24/17 08/19/20 Unknown CHOLECALCIFEROL (VITAMIN D3) 1 tab PO QAM #0 09/24/17 08/19/20 Unknown [id number] C- 1 tab PO QAM #0 09/24/17 08/19/20 Unknown (GLUCOSAMINE CHONDROITIN) Multivitamin 1 tab PO QAM #0 09/24/17 08/19/20 Unknown Naproxen Sodium 1 tab PO QID PRN #0 09/24/17 08/19/20 Unknown ZINC 1 tab PO QAM #0 09/24/17 08/19/20 Unknown Medical Marijuana 1 inh INHALATION DAILY PRN 08/19/20 08/19/20 Unknown oxycodone-acetaminophen [Percocet] 1 tab PO Q6H PRN 08/19/20 08/19/20 Unknown Past Medical History Medical History Hypertension Obesity Osteoarthritis Rib fracture left sided, remotely, healed without intervention- does have residual pain over area Exercise / Class Metabolic Activity III < 4 Walking/Shop/Light housework (uses walker) Past Surgical History Surgical History History of arthroscopy of shoulder left History of back surgery x5 total History of knee replacement right Past Anesthesia History No Hx of Anesthesia Complications and No Family Hx of Anesthesia Complications History of PONV No Hx of PONV and No Hx of Motion Sickness Social History Smoking Status: Never smoker Do You Dip or Chew Tobacco: No Hx Alcohol Use: No substance use type: marijuana (medical (card), vaperized oils, advised [facility] protocol) Last Used Substance Other:: medical marijuana Review of Systems Patient denies chest pain, shortness of breath, fever, chills, cough, wheezing, palpitations. Physical Exam Vital Signs VITALS BP 162/90 P 95 TEMP 98.3 SP02 95%RA RESP 16 PHYSICAL Full neck and c-spine range of motion. Full TMJ range of motion. TMD 3 finger breaths Mallampati Score 3 Dentition: upper/lower dentures Lungs: clear throughout to auscultation Cardiac: regular rate and rhythm, no murmurs noted Spine: normal Carotid arteries: negative bruit Extremities: no edema Short [place] Testing Laboratory Results 08/23/20 10:14 08/23/20 10:14 PT 10.9 Seconds (9.0-12.0) 08/23/20 10:14 INR 1.0 (0.9-1.1) 08/23/20 10:14 APTT 30.1 Seconds (21.0-31.0) 08/23/20 10:14 Urine Color Dark Yellow 08/23/20 Unknown Urine Appearance Turbid (Clear) A 08/23/20 Unknown Urine pH 5.0 (4.5-7.5) 08/23/20 Unknown Ur Specific [place] 1.035 (1.000-1.030) H 08/23/20 Unknown Urine Protein 1+ (Negative) H 08/23/20 Unknown Urine Glucose (UA) Negative (Negative) 08/23/20 Unknown Urine Ketones Trace (Negative) H 08/23/20 Unknown Urine Nitrite Negative (Negative) 08/23/20 Unknown Ur Leukocyte Esterase Negative (Negative) 08/23/20 Unknown Urine WBC (Auto) 1-5 /hpf (0-5) 08/23/20 Unknown Urine RBC (Auto) 0-4 /hpf (0-4) 08/23/20 Unknown U Hyaline Cast (Auto) 0 /lpf (0-5) 08/23/20 Unknown U Epithel Cells (Auto) 0-5 /lpf (0-5) 08/23/20 Unknown Urine Bacteria (Auto) Negative (Negative) 08/23/20 Unknown Blood Type O Positive 08/23/20 10:14 Antibody Screen NEGATIVE 08/23/20 10:14 Surgeon's office made aware of elevated WBC* Electrocardiogram Date: 08/23/20 NSR with sinus arrhythmia at 84bpm. RBBB. LAFB. *Bifascicular block.* Patient scheduled for cardiology preop evaluation 08/26. Chest X-Ray Date: 08/23/20 FINDINGS: Lung volumes are normal. There is no pneumothorax or pleural effusion. Slight blunting of the left costophrenic angle is unchanged. There are multiple old bilateral rib fractures. There is no evidence for pulmonary edema. No consolidation is present. Cardiac size is normal. Mediastinal contours are unremarkable. IMPRESSION: No acute cardiopulmonary findings. Stress Test Date: 04/02/14 Type: DSE Negative DSE/stress EKG for ischemia at 84% MPHR. No ECG changes. No induced chest pain. 139% MPHR. EF 55-60%. Severe cLVH. Mild MR.
--- NOTE | 2020-08-23 10:42 | XRay Report ---
XR chest Pre-admission PA/Lat CLINICAL HISTORY: Preoperative evaluation. COMPARISON STUDY: Chest radiograph the 2017. FINDINGS: Lung volumes are normal. There is no pneumothorax or pleural effusion. Slight blunting of t he left costophrenic angle is unchanged. There are multiple old bilateral rib fractures. There is no evidence for pulmonary edema. No consolidation is present. Cardiac size is normal. Mediastinal contou rs are unremarkable. IMPRESSION: No acute cardiopulmonary findings. ACT 112: Negative or not required by law. Electronically signed by: Christophe Cormier M.D. 08/23/2020 10:41 AM
[2020-08-23 11:35] LABS: Basophils # (auto) 0.02 K/uL (0-0.2); Basophils % (auto) 0.2 %; Eosinophils # (auto) 0.37 K/uL (0-0.5); Eosinophils % (auto) 2.8 %; Hematocrit (blood only) 47.6 % (42-52); Immature Granulocytes # (auto) 0.05 K/uL (0.00-0.02); Immature Granulocytes % (auto) 0.4 %; Lymphocytes % (auto) 22.1 %; Mean Corpuscular Hemoglobin 28.9 pg (25-34); Mean Corpuscular Hgb Conc 33.6 g/dL (32-36); Mean Corpuscular Volume 85.9 fL (80-100); Mean Platelet Volume 9.9 fL (7.4-10.4); Monocytes # (auto) 0.67 K/uL (0.11-0.59); Monocytes % (auto) 5.1 %; Neutrophils # (auto) 9.13 K/uL (1.4-6.5); Neutrophils % (auto) 69.4 %; Platelet Count 306 K/uL (130-400); RDW Coefficient of Variation 13.5 % (11.5-14.5); RDW Standard Deviation 42.7 fL (36.4-46.3); Red Blood Count 5.54 M/uL (4.7-6.1); White Blood Count 13.14 K/uL (4.8-10.8)
[2020-08-23 11:43] LABS: BUN Creatinine Ratio 20.5 (10-20); Calcium 9.7 mg/dl (8.5-10.1); Creatinine Clr Calc Pharmacy 78.2 ml/min; Est GFR (African American) 84.5; Est GFR (Non-African American) 72.9; Potassium 4.4 mmol/L (3.5-5.1)
[2020-08-23 11:51] LABS: Partial Thromboplastin Ratio 1.1; Partial Thromboplastin Time 30.1 Seconds (21.0-31.0); Prothrombin Time 10.9 Seconds (9.0-12.0)
[2020-08-23 11:59] LABS: Appearance Urine Turbid (Clear); Bacteria Urine Automated Negative (Negative); Blood Urine Negative (Negative); Color Urine Dark Yellow; Glucose Urine UA Negative (Negative); Ketones Urine Trace (Negative); Leukocyte Esterase Urine Negative (Negative); Nitrite Urine Negative (Negative); Protein Urine 1+ (Negative); RBC Urine Automated 0-4 /hpf (0-4); Specific Gravity Urine 1.035 (1.000-1.030); Urobilinogen Urine Negative (Negative)
[2020-08-23 12:12] LABS: Bilirubin Urine Negative (Negative); Ictotest Urine Negative (Negative)
[2020-08-23 12:45] LABS: Cast Urine Automated 0 /lpf (0-5); Epithelial Cell Urine Auto 0-5 /lpf (0-5)
--- NOTE | 2020-08-23 16:55 | Electrocardiogram Report ---
Test Reason : Blood Pressure : / mmHG Vent. Rate : 084 BPM Atrial Rate : 084 BPM P-R Int : 140 ms QRS Dur : 136 ms QT Int : 390 ms P-R-T Axes : 077 -61 067 degrees QTc Int : 460 ms Normal sinus rhythm with sinus arrhythmia Right bundle branch block Left anterior fascicular block Bifascicular block Abnormal ECG When compared with ECG of 21-NOV-2016 14:10, (RBBB and left anterior fascicular block) is now Present Confirmed by Mateo Young ([id number]) on 08/23/2020 4:55:14 PM Referred By: Naveed Clarke Confirmed By:Mateo Young
[~2020-09-12 07:56] MED LIST changes: -ACET-1256 PO; +ACETAMINOPHEN 500 MG TAB PO SCH; -ASCA500 PO; -ATOR10TA82 PO; +ATROPINE SULFATE 0.1 MG/ML 10ML SYR IV PRN; -ATV/1 PO; -CHOL1000 PO; +CeleBREX 200 MG CAP PO SCH; +GABAPENTIN 600 MG DOSE PO SCH; -GLUCTAB7 PO; +HYDROmorphone INJ 1 MG/ML SYRINGE IV PRN; -IBUP-1050 PO; +LABETALOL HCL IV 5 MG/ML 20ML IV PRN; +LR 15ML/HR IV SCH; -MULT-506 PO; -NAPR-1007 PO; +ONDANSETRON INJ 2 MG/ML 2 ML VIAL IV PRN; +PHENYLEPHRINE 100MCG/ML 5ML SYR IV PRN; -PSEU120T31 PO; -TRAM-10 PO; -ZINC50TA3 PO; +ceFAZolin 2000MG 2,000 MG/15 ML SYR IV SCH; +ePHEDrine sulfate 50 MG/ML AMP IV PRN
[2020-09-12] MEDS ORDERED: fentaNYL citrate 100 MCG/2 ML VIAL ONE (08:45)
[2020-09-12] MEDS ORDERED: MIDAZOLAM HCL 1 MG/ML 2ML VIAL ONE (08:45)
[2020-09-12] MEDS: CeleBREX 200 MG CAP PO SCH ×2 (08:59→09:00)
[2020-09-12] MEDS: GABAPENTIN 600 MG DOSE PO SCH ×2 (09:00)
--- NOTE | 2020-09-12 09:12 | History & Physical Bridge Note ---
Date of Service September 12, 2020 History & Physical Bridge Note I have examined the patient, reviewed the History & Physical and in the interval since the performance of the History & Physical I have noted the following changes of clinical significance: no changes noted
--- NOTE | 2020-09-12 09:13 | History & Physical Report ---
Date of Service September 12, 2020 Assessment & Plan (1) Neurogenic claudication due to lumbar spinal stenosis: Admission and Anticipated Discharge Date Admission Date: L2-L3 decompression, L2-L4 fusion, L3-S1 hardware removal History of Present Illness Chief Complaint: Back and bilateral leg pain Primary Care Provider: Umer Ward This is a 60-year-old male well-known to me presents with chronic persistent back and leg pain. Failing course of nonoperative care is here for the above- mentioned procedure. Allergies Allergy/AdvReac Type Severity Reaction Status Date / Time cat dander Allergy Unknown itchy Verified 09/12/20 09:03 eyes, sneezing codeine AdvReac Unknown GI upset Verified 09/12/20 09:03 Home Medications Medication Instructions Recorded Confirmed Type oxycodone-acetaminophen [Percocet] 1 tab PO Q6H PRN 08/19/20 09/12/20 History hydrochlorothiazide 25 mg tablet 25 mg PO DAILY 08/24/20 09/12/20 History lorazepam 1 mg tablet 1 mg PO UD tab 08/24/20 09/12/20 History naproxen 500 mg tablet 500 mg PO BID 08/24/20 09/12/20 History tramadol 50 mg tablet 100 mg PO Q6H tab 08/24/20 09/12/20 History lisinopril 10 mg tablet 10 mg PO DAILY #90 tab 08/26/20 09/12/20 Rx Past Med/Surg History Medical History Hypertension Obesity Osteoarthritis Rib fracture Surgical History History of arthroscopy of shoulder History of back surgery History of knee replacement Social History Smoking Status: Never smoker Second Hand Exposure: No; Do You Dip or Chew Tobacco: No; Hx Alcohol Use: No Preferred Language: Chinese Communication Ability: Effective Beliefs That Will Affect Care: None Current Living Situation: Parent Current Living Situation Comment: lives with mother current occupational status: unemployed Feels Safe at Home: Yes Safety Concerns: Feels Safe At This Time Assistive Devices: Cane, Crutches, Denture - Upper, Denture - Lower and Walker Physical Exam Physical Exam: Patient is alert and oriented Heart regular in rhythm Lungs clear to auscultation
[2020-09-12] MEDS ORDERED: BACITRACIN INJ 50,000 UNIT VIAL ONE (09:23)
[2020-09-12] MEDS ORDERED: BUPIVACAINE/EPINEPHRINE 0.5% MPF 1:200,000 30 ML VIAL ONE (09:23)
[2020-09-12] MEDS ORDERED: KETAMINE 50 MG/5 ML SYRINGE ONE (09:52)
[2020-09-12] MEDS ORDERED: ALBUMIN HUMAN 5% 12.5 GM/250 ML VIAL IV ONE ×2 (11:09→12:03)
[2020-09-12] MEDS ORDERED: LIDOCAINE HCL 2% 2 ML VIAL/AMP(20MG/ML) INFIL ONE (11:29)
[2020-09-12] MEDS ORDERED: DEXAMETHASONE SOD INJ 4 MG/ML VIAL ONE (11:29)
[2020-09-12] MEDS ORDERED: ROCURONIUM BROMIDE 10 MG/ML 5 ML VIAL IV ONE (11:29)
[2020-09-12] MEDS ORDERED: PROPOFOL IV EMULSION 10 MG/ML 100 ML VIAL IV ONE (11:29)
[2020-09-12] MEDS ORDERED: ONDANSETRON INJ 2 MG/ML 2 ML VIAL ONE (11:29)
[2020-09-12] MEDS ORDERED: PHENYLEPHRINE HCL 10 MG/ML VIAL ONE (11:29)
[2020-09-12] MEDS ORDERED: HYDROmorphone INJ 2 MG/ML SYR/VIAL ONE (11:29)
[2020-09-12] MEDS ORDERED: PHENYLEPHRINE 100MCG/ML 5ML SYR ONE (11:29)
[2020-09-12] MEDS ORDERED: FLOSEAL HEMOSTATIC MATRIX 10ML TOP ONE (11:38)
--- NOTE | 2020-09-12 12:27 | Operative Report ---
Post Operative Report Pre & Post Diagnosis Operation Date: 09/12/20 09:35 Pre-Op Diagnosis: Spinal Stenosis, Lumbar Region with Neurogenic Claudication Post-Op Diagnosis: Spinal Stenosis, Lumbar Region with Neurogenic Claudication I identified the patient and participated in the time-out.: Yes Procedure Operation Date: 09/12/20 09:35 Actual Procedures #1 removal of posterior segmental instrumentation L3-S1. #2 exploration of fusion L3-S1. #3 lumbar decompression with bilateral medial facetectomies and foraminotomies L1-2 and L2-3. #4 posterior spinal fusion L2-3 L3-4. #5 placement posterior instrumentation L2-4 including a cross-link. #6 interbody fusion L2-3 per #7 placement peek cage 12 x 26 mm L2-3. #8 placement locally harvested morselized autograft in the posterior lateral gutters. #9 placement infuse collagen sponge, master graft in the posterior gutters and ostial amp interbody space. Surgeon Naveed Clarke, DO Cardiac Cath Lab Technologist Neva De Jesus Estimated Blood Loss 800 Findings See Below Patient is 5 foot 6 weighing over 102 kg with a BMI in excess of 36. The patient's body habitus did create significant technical difficulty requiring her deepest retractors and longus instruments in order to perform his procedure as well as an EBL in excess of 800 cc. Has had at least 50% increase in operative time. Specimens None Indications This is a 60-year-old male who presents with above-mentioned diagnosis after failing nonoperative care is here for surgical intervention. Description of Procedure Patient was met with identified informed consent obtained. Patient was then taken to the operative suite underwent an patient placed in a prone position on the Darwin table on top of the Romel frame. All bony prominences well-padded eyes inspected to ensure no external pressure placed upon them. This point the lumbar spine was prepped and draped in sterile fashion. Sharp dissection with the assistance of Bovie cautery was performed down to and exposing the lamina and transverse processes of L2 and the instrumentation at L3-L4-L5 and S1 levels bilaterally. Then proceeded move the hardware bilaterally noting that the screws at L5 and S1 were encased in bone and unable to be removed without excess blood loss. Subsequently elected to keep the screws in place. Noted marked loosening of the screws at L3 and expiration the bone graft noted to be mature and intact with some lack of bone graft in the L3-4 posterior lateral gutters. I then performed a complete laminectomy of L2 partial laminectomy of L3 including bilateral medial facetectomies and foraminotomies addressing severe spinal stenosis. Pedicle screws were then placed in L2 and L4. Purposes aviva was locked into place. Was unable to place screws in the L3 secondary to windshield wiper ring of the previous implant and oversized pedicles. By way of a transfemoral approach the right a complete discectomy of L2-3 was performed endplates curetted to subcortically bone and a 12 x 26 mm peek cage filled osteobone graft tapped in position. A cross-link was locked in position. The rods were locked in final position. The transverse processes of L to L3 and L4 were then burred to subcortical being bone. Infuse collagen sponge mass graft lobe autograft was placed in posterior gutters. 15 round ANDREW drain inserted. Incision was then closed with 1 Vicryl fascia 2-0 Vicryl subcutaneously and 4 Monocryl for final skin closure. Steri-Strip sterile dressings placed. Patient will continue to PACU stable condition. Please note spinal cord monitoring was utilized at the procedure no changes noted. Lastly Neva De Jesus was present at the entire surgery involved in patient positioning complex portions of the surgery and final skin closure. I attest to the content of the Intraoperative Record and any orders documented therein. Any exceptions are noted below.
--- NOTE | 2020-09-12 12:55 | Fluoroscopy Report ---
FL lumbar spine 2-3V CLINICAL HISTORY: Hardware removal. Decompression and fusion. COMPARISON STUDY: Lumbar spine fluoroscopic images April 28, 2015. FLUOROSCOPY TIME: 15.7 seconds. FLUOROSCOPIC IMAGES: 2 FINDINGS: These images demonstrate previous L4-L5 and L5-S1 discectomies with interbody spacer placem ent. Residual right pedicle screw at L5 and the left pedicle screw at S1 are noted. Interval L2-L3 di scectomy is noted with interbody spacer placement. Posterior decompression is noted. Bilateral pedicl e screws now extend from L2 through L4. IMPRESSION: Fluoroscopic images demonstrating hardware removal and interval L2-L3 discectomy, salvage laborer ior decompression and L2-L4 bilateral pedicle screw fusion. ACT 112: Negative or not required by law. Electronically signed by: Christophe Cormier M.D. 09/12/2020 12:54 PM
[2020-09-12] MEDS ORDERED: METOPROLOL TARTRATE 1 MG/ML VIAL IV STA (12:59)
[2020-09-12] MEDS ORDERED: METOPROLOL TARTRATE 1 MG/ML VIAL IV ONE (13:00)
--- NOTE | 2020-09-12 13:10 | Anesthesiology Progress Note ---
Date of Service September 12, 2020 Anesthesia Post Procedure Vital Signs Vital Signs: Temp Pulse Resp BP Pulse Ox 09/12/20 09:06 37.1 C 95 H 18 168/104 H 94 Pain Intensity Lower Back: Pain Intensity: 4
--- NOTE | 2020-09-12 13:13 | Anesthesiology Progress Note ---
Date of Service September 12, 2020 Anesthesia Post Procedure Vital Signs Vital Signs: Temp Pulse Pulse Pulse Resp BP BP 09/12/20 13:10 99 H 14 116/53 L 09/12/20 13:02 99 H 121/80 09/12/20 13:00 99 H 14 121/80 09/12/20 12:50 97 H 14 129/84 09/12/20 12:40 37.9 C H 101 H 16 154/88 H 09/12/20 09:06 37.1 C 95 H 18 168/104 H Pulse Ox 09/12/20 13:10 99 09/12/20 13:02 09/12/20 13:00 99 09/12/20 12:50 98 09/12/20 12:40 100 09/12/20 09:06 94 Pain Intensity Lower Back: Pain Intensity: 4 Transfer of Care Handoff Completed per policy Notes Mental Status: alert / awake / arousable Patient Amnestic to Procedure: Yes Nausea / Vomiting: adequately controlled Pain: adequately controlled Airway Patency, RR, SpO2: stable & adequate BP & HR: stable & adequate Hydration State: stable & adequate Anesthetic Complications: no major complications apparent and Pt Satisfied with anesthetic care
[2020-09-12] MEDS: fentaNYL citrate 100 MCG/2 ML VIAL IV PRN ×4 (13:22→13:40)
[2020-09-12] MEDS ORDERED: METOCLOPRAMIDE HCL INJ 5 MG/ML 2 ML VIAL IV PRN (14:45)
[2020-09-12] MEDS ORDERED: LORazepam 0.5 MG TAB PO PRN (14:45)
[2020-09-12] MEDS ORDERED: bisacodyL 10 MG SUPP PR PRN (14:45)
[2020-09-12] MEDS ORDERED: ACETAMINOPHEN 1,000 MG/100 ML VIAL IV PRN (14:45)
[2020-09-12] MEDS ORDERED: DO NOT ADMINISTER PNEUMOCOCCAL VACCINE PRN (14:45)
[2020-09-12] MEDS ORDERED: MAGNESIUM HYDROXIDE SUSP 30 ML UDC PO PRN (14:45)
[2020-09-12] MEDS ORDERED: HYDROmorphone INJ 1 MG/ML SYRINGE IV PRN (14:45)
[2020-09-12] MEDS ORDERED: ONDANSETRON INJ 2 MG/ML 2 ML VIAL IV PRN (14:45)
[2020-09-12] MEDS ORDERED: PROMETHAZINE HCL 12.5 MG in SODIUM CHLORIDE 0.9% 50 ML IV PRN (14:45)
[2020-09-12] MEDS ORDERED: hydrOXYzine HCl 25 MG TAB PO PRN (14:45)
[2020-09-12] MEDS ORDERED: NALOXONE HCL 0.4 MG/1 ML VIAL/CARP IV PRN (14:45)
[2020-09-12] MEDS ORDERED: ALUMINUM/MAGNESIUM SUSP 30 ML UDC PO PRN (14:45)
[2020-09-12] MEDS ORDERED: FAMOTIDINE 20 MG TAB PO PRN (14:45)
[2020-09-12] MEDS ORDERED: LORazepam 0.5 MG/1 ML VIAL IV PRN (14:45)
[2020-09-12] MEDS ORDERED: diphenhydrAMINE Capsule 25 MG CAP PO PRN (14:45)
[2020-09-12] MEDS ORDERED: ACETAMINOPHEN 500 MG TAB PO PRN (14:45)
[2020-09-12] MEDS ORDERED: ONDANSETRON 4 MG OD TAB PO PRN (14:45)
[2020-09-12] MEDS ORDERED: DO NOT ADMINISTER FLU VACCINE PRN (14:45)
[2020-09-12] MEDS ORDERED: HYDROmorphone INJ 0.5 MG/0.5 ML SYR IV PRN (14:45)
[2020-09-12] MEDS ORDERED: SOD PHOSPHATE/SOD BIPHOSPHATE ENEMA 132 ML BTL PR PRN (14:45)
[2020-09-12] MEDS: KETOROLAC TROMETHAMINE 15 MG/ML VIAL IV SCH ×2 (15:20→22:02)
[2020-09-12] MEDS: LACTATED RINGER'S 1,000 ML IV SCH ×2 (15:20→20:31)
[2020-09-12] MEDS: oxyCODONE HCL IR 5 MG TAB (IMMEDIATE RELEASE) PO PRN ×2 (15:20→19:27)
[2020-09-12] MEDS: ceFAZolin 2000MG 2,000 MG/15 ML SYR IV SCH ×2 (17:35→17:41)
[2020-09-12] MEDS: traMADol HCL 50 MG TABLET PO PRN ×2 (17:40→23:29)
--- NOTE | 2020-09-12 18:44 | Hospitalist Consultation ---
Date of Consultation September 12, 2020 Assessment & Plan (1) Neurogenic claudication due to lumbar spinal stenosis: status post decomp and fusion 09/12 Some complaints of numbness in his legs bilaterally, Dr. Clarke updated, this resolved shortly after the complaint, able to move legs in bed. Monitor for acute blood loss DVT proph, pain control per primary (2) LVH (left ventricular hypertrophy): noted (3) Right bundle branch block (RBBB) with left anterior fascicular block (LAFB): noted (4) HTN (hypertension): Continue lisinopril, hctz Supervising Physician Co-Signing Physician Notes Patient seen and examined with Courtney COFFMAN. I agree with her exam findings, review of systems, assessment and plan. I personally reviewed the lab work and imaging as well. patient doing well post op, said he had some numbness in both legs but it went away, he can move his legs but feels weak drinking some liquids has pain in back, says it is 6 out of 10 - Lumbar claudication: s/p decompression, fusion, management per Dr. Clarke check labs in the AM - HTN: BP low normal, continue home regimen History of Present Illness Attending Physician: Naveed Clarke, DO History of Present Illness Mr. Camacho is post decompression and fusion. He is having some numbness in his legs and pain in his back but otherwise doing well. 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 Allergies Allergy/AdvReac Type Severity Reaction Status Date / Time cat dander Allergy Unknown itchy Verified 09/12/20 09:03 eyes, sneezing codeine AdvReac Unknown GI upset Verified 09/12/20 09:03 Home Medications Medication Instructions Recorded Confirmed Type oxycodone-acetaminophen [Percocet] 1 tab PO Q6H PRN 08/19/20 09/12/20 History hydrochlorothiazide 25 mg tablet 25 mg PO DAILY 08/24/20 09/12/20 History lorazepam 1 mg tablet 1 mg PO UD tab 08/24/20 09/12/20 History naproxen 500 mg tablet 500 mg PO BID 08/24/20 09/12/20 History tramadol 50 mg tablet 100 mg PO Q6H tab 08/24/20 09/12/20 History lisinopril 10 mg tablet 10 mg PO DAILY #90 tab 08/26/20 09/12/20 Rx Patient History Medical History Diastolic dysfunction Hypertension LVH (left ventricular hypertrophy) severe Obesity Osteoarthritis Rib fracture left sided, remotely, healed without intervention- does have residual pain over area Surgical History History of arthroscopy of shoulder left History of back surgery x5 total History of knee replacement right Social History Smoking Status: Never smoker Second Hand Exposure: No; Do You Dip or Chew Tobacco: No; Hx Alcohol Use: No Preferred Language: Indonesian Communication Ability: Effective Beliefs That Will Affect Care: None Current Living Situation: Parent Current Living Situation Comment: lives with mother current occupational status: unemployed Feels Safe at Home: Yes Safety Concerns: Feels Safe At This Time Assistive Devices: Cane, Crutches, Denture - Upper, Denture - Lower and Walker Review of Systems Constitutional: no fever, no chills and no body aches Respiratory: no cough and no dyspnea Cardiovascular: no chest pain and no dyspnea Gastrointestinal: no abdominal pain, no early satiety and no nausea Genitourinary: no dysuria and no urinary hesitancy Musculoskeletal: + back pain; no joint pain Integumentary: no rash Physical Exam Physical Exam: General: no distress Eyes: normal inspection, PERLL Respiratory: chest non tender, clear to auscultation, normal breath sounds, no respiratory distress, no accessory muscle use Cardiac: regular rate and rhythm, no rub or gallop, no murmur, no edema, no jvd GI/: active bowel sounds, no abd pain or tenderness, soft, non distended Extremities: normal range of motion, normal strength, non tender Neuro/Psych: alert and oriented x 3, normal mood and affect Skin: normal color, dry Results & Data Results & Data ([facility]) Vital Signs (Past 12 Hours) Vital Signs Temp Pulse Pulse Pulse Resp BP BP 09/12/20 17:39 37.1 C 88 18 109/52 L 09/12/20 16:13 36.7 C 92 H 18 09/12/20 15:20 36.5 C 86 18 09/12/20 14:47 36.9 C 75 18 106/46 L 09/12/20 14:20 36.9 C 78 16 09/12/20 13:50 37.4 C 77 14 101/52 L 09/12/20 13:40 84 16 90/55 L 09/12/20 13:30 77 14 118/59 L 09/12/20 13:20 79 16 100/56 L 09/12/20 13:10 99 H 14 116/53 L 09/12/20 13:02 99 H 121/80 09/12/20 13:00 99 H 14 121/80 09/12/20 12:50 97 H 14 129/84 09/12/20 12:40 37.9 C H 101 H 16 154/88 H 09/12/20 09:06 37.1 C 95 H 18 168/104 H BP Pulse Ox 09/12/20 17:39 92 09/12/20 16:13 103/59 L 92 09/12/20 15:20 110/64 95 09/12/20 14:47 96 09/12/20 14:20 90/54 L 96 09/12/20 13:50 95 09/12/20 13:40 99 09/12/20 13:30 99 09/12/20 13:20 99 09/12/20 13:10 99 09/12/20 13:02 09/12/20 13:00 99 09/12/20 12:50 98 09/12/20 12:40 100 09/12/20 09:06 94 PG Care Time/CCT Total # of Minutes Spent Total Time Spent with Patient: Total time spent is greater than 50% in coordination of care (as documented) at patient's floor/unit and/or counseling patient: Coding Level of Care Code 16643 Inpt Consult Level 3 Diagnoses Neurogenic claudication due to lumbar spinal stenosis M48.062 LVH (left ventricular hypertrophy) I51.7 Right bundle branch block (RBBB) with left anterior fascicular block (LAFB) I45.2 HTN (hypertension) I10
[2020-09-12] MEDS: DOCUSATE SODIUM/SENNA 50/8.6MG TAB PO SCH (20:20)
[2020-09-13] MEDS: ceFAZolin 2000MG 2,000 MG/15 ML SYR IV SCH (02:11)
[2020-09-13] MEDS: oxyCODONE HCL IR 5 MG TAB (IMMEDIATE RELEASE) PO PRN ×5 (02:11→23:49)
[2020-09-13] MEDS: LACTATED RINGER'S 1,000 ML IV SCH (04:27)
[2020-09-13] MEDS: KETOROLAC TROMETHAMINE 15 MG/ML VIAL IV SCH ×2 (05:02→10:28)
[2020-09-13] MEDS: POLYETHYLENE (MIRALAX) 17 GM PACK PO SCH ×4 (05:02→23:49)
[2020-09-13 06:02] LABS: Basophils # (auto) 0.01 K/uL (0-0.2); Eosinophils # (auto) 0.01 K/uL (0-0.5); Hematocrit (blood only) 29.4 % (42-52); Hemoglobin 9.6 g/dL (14.0-18.0); Immature Granulocytes # (auto) 0.09 K/uL (0.00-0.02); Immature Granulocytes % (auto) 0.4 %; Lymphocytes # (auto) 2.32 K/uL (1.2-3.4); Lymphocytes % (auto) 10.8 %; Mean Corpuscular Hemoglobin 28.7 pg (25-34); Mean Corpuscular Hgb Conc 32.7 g/dL (32-36); Mean Corpuscular Volume 87.8 fL (80-100); Mean Platelet Volume 9.3 fL (7.4-10.4); Monocytes # (auto) 2.12 K/uL (0.11-0.59); Monocytes % (auto) 9.9 %; Neutrophils # (auto) 16.85 K/uL (1.4-6.5); Neutrophils % (auto) 78.9 %; Platelet Count 241 K/uL (130-400); RDW Coefficient of Variation 13.9 % (11.5-14.5); RDW Standard Deviation 44.3 fL (36.4-46.3); Red Blood Count 3.35 M/uL (4.7-6.1)
[2020-09-13 06:21] LABS: BUN Creatinine Ratio 21.7 (10-20); Calcium 7.8 mg/dl (8.5-10.1); Creatinine Clr Calc Pharmacy 60.8 ml/min; Est GFR (African American) 60.8; Est GFR (Non-African American) 52.5; Potassium 4.7 mmol/L (3.5-5.1)
[2020-09-13] MEDS: hydroCHLOROthiazide 25 MG TAB PO SCH (08:34)
--- NOTE | 2020-09-13 08:49 | Orthopedic Progress Note ---
Date of Service September 13, 2020 Assessment & Plan (1) Neurogenic claudication due to lumbar spinal stenosis: Admission and Anticipated Discharge Date Admission Date: September 12, 2020 We will continue physical therapy today advance his bowel regiment hopefully d ischarge home tomorrow. Subjective Back pain controlled leg pain improved Physical Exam Physical Exam: Patient is good strength testing appears comfortable. Results & Data ([facility]) Vital Signs (Past 12 Hours) Vital Signs Temp Pulse Resp BP BP Pulse Ox 09/13/20 08:01 37.0 C 89 18 147/64 H 96 09/13/20 02:58 37.4 C 100 H 18 113/53 L 94 09/12/20 23:17 37.4 C 100 H 18 106/61 94
[2020-09-13] MEDS ORDERED: lisinopril 10 MG TAB PO SCH (09:00)
[2020-09-13] MEDS: traMADol HCL 50 MG TABLET PO PRN ×2 (10:26→21:12)
[2020-09-13] MEDS: DEXAMETHASONE SOD PHOSPHATE 8 MG in SYRINGE 0 ML IV SCH (10:28)
--- NOTE | 2020-09-13 11:55 | Hospitalist Progress Note ---
Date of Service September 13, 2020 Assessment & Plan (1) Neurogenic claudication due to lumbar spinal stenosis: status post decomp and fusion 09/12 DVT proph, pain control per primary (2) LVH (left ventricular hypertrophy): noted (3) Right bundle branch block (RBBB) with left anterior fascicular block (LAFB): noted (4) HTN (hypertension): hold lisinopril for today for marginally elevated creatinine, continued hctz Recheck prp tomorrow. (5) Blood loss anemia: Hgb 9.6 today down from baseline of 16 Continue to monitor, no indication for transfusion at this time Will follow labs in the morning but will otherwise sign off. Thank you for the consult, please let us know if you have any questions or concerns Admission and Anticipated Discharge Date Admission Date: September 12, 2020 Subjective Mr. Camacho is feeling better, he feels that the weakness in his right leg has improved by about 60% since his surgery however he continues to have significant pain at his surgical site. He otherwise has no complaints. Review of Systems Constitutional: no fever and no body aches Respiratory: no cough and no dyspnea Cardiovascular: no chest pain and no palpitations Gastrointestinal: no abdominal pain, no nausea and no vomiting Genitourinary: no dysuria and no urinary hesitancy Musculoskeletal: as per Subjective / HPI Integumentary: no rash Physical Exam Physical Exam: General: no distress Eyes: normal inspection, PERLL Respiratory: chest non tender, clear to auscultation, normal breath sounds, no respiratory distress, no accessory muscle use Cardiac: regular rate and rhythm, no rub or gallop, no murmur, no edema, no jvd GI/: active bowel sounds, no abd pain or tenderness, soft, non distended Extremities: normal range of motion, normal strength, non tender Neuro/Psych: alert and oriented x 3, normal mood and affect Skin: normal color, dry Results & Data Results & Data ([facility]) Vital Signs (Past 12 Hours) Vital Signs Temp Pulse Resp BP BP Pulse Ox 09/13/20 08:01 37.0 C 89 18 147/64 H 96 09/13/20 02:58 37.4 C 100 H 18 113/53 L 94 PG Care Time/CCT Total # of Minutes Spent Total Time Spent with Patient: Total time spent is greater than 50% in coordination of care (as documented) at patient's floor/unit and/or counseling patient: Coding Level of Care Code 25348 Subseq Hosp Care Lvl 2 Diagnoses Neurogenic claudication due to lumbar spinal stenosis M48.062 LVH (left ventricular hypertrophy) I51.7 Right bundle branch block (RBBB) with left anterior fascicular block (LAFB) I45.2 HTN (hypertension) I10 Blood loss anemia D50.0
[2020-09-13] MEDS: DOCUSATE SODIUM/SENNA 50/8.6MG TAB PO SCH (20:35)
[2020-09-14] MEDS: traMADol HCL 50 MG TABLET PO PRN (03:58)
[2020-09-14] MEDS: POLYETHYLENE (MIRALAX) 17 GM PACK PO SCH (06:17)
[2020-09-14] MEDS: oxyCODONE HCL IR 5 MG TAB (IMMEDIATE RELEASE) PO PRN (08:23)
[2020-09-14] MEDS: hydroCHLOROthiazide 25 MG TAB PO SCH (08:23)
[2020-09-14] MEDS: DEXAMETHASONE SOD PHOSPHATE 8 MG in SYRINGE 0 ML IV SCH (08:25)
--- NOTE | 2020-09-14 09:55 | Discharge Summary ---
Date of Service September 14, 2020 Admission HPI Per Admitting Provider This is a 60-year-old male well-known to me presents with chronic persistent back and leg pain. Failing course of nonoperative care is here for the above- mentioned procedure. Principal Diagnosis Lumbar spinal stenosis with neurogenic claudication Discharge Data Allergies Allergy/AdvReac Type Severity Reaction Status Date / Time cat dander Allergy Unknown itchy Verified 09/12/20 09:03 eyes, sneezing codeine AdvReac Unknown GI upset Verified 09/12/20 09:03 Consultations 09/12/20 14:26 Consult Case Management - Discharge Planning Routine Consult Hospitalist Routine Procedures Performed Operation Date: 09/12/20 09:35 Actual Procedures p L2-L3 Decompression, L2-L4 Fusion, L3-S1 Hardware Removal, use of Infuse, Interbody cage L2-L3, use of Osteoamp, Spinal Cord Monitoring(Not Applicable) - Naveed Clarke DO Ordered Studies 09/12/20 07:45 FL fluoroscopy <1hr Routine FL lumbar spine 2-3V Routine Hospital Course (1) Neurogenic claudication due to lumbar spinal stenosis: Patient went lumbar decompression fusion tolerated this well second orthopedic for postoperative. Postop day 1 is up and Sharon progressed to postop day #2 postop day ANDREW drain decreased appropriately pain well controlled subsequent discharge home. Discharge orders instructions from the chart for further review. Total Time Total Time Spent Total Time Spent (In Minutes): 20 minutes Discharge Plan Discharge Items Patient Disposition: Home - Self-Care Reason For Visit: Spinal Stenosis, Lumbar Region with Neurogenic Cla Discharge Diagnosis: Lumbar spinal stenosis with neurogenic claudication Activity: As commented below Non-emergency contact: Primary Care Provider Call non-emergency contact if: you have any medication questions Follow-up/Referrals: Umer Ward [Primary Care Provider] - Diet: Regular Addtl Attending Provider Instructions: ACTIVITY RECOMMENDATIONS: SELF CARE INSTRUCTIONS AFTER CERVICAL FUSIONS 1. No smoking. Smoking drastically decreases the chance of a solid fusion. 2. No bending, lifting more than 5 pounds, or twisting (roll like a log when turning in bed). 3. You may shower 3 days after surgery. Thoroughly dry wound. Do not soak in the tub. 4. Cervical collar: Must be worn at all times including sleeping. You may remove the brace only to bath, eat and if you are sitting in a recliner. 5. Please walk as much as you can for exercise. Gradually increase the distance that you walk as your endurance increases. SPECIAL CARE INSTRUCTIONS: VERY IMPORTANT TO READ AND REVIEW A. Do not take any anti-inflammatory medications (i.e. Indocin, Advil, Aspirin, Naprosyn, Aleve, Motrin, etc.) as these may inhibit the chance of a solid fusion. Tylenol is okay to take. B. Your surgical incision has been closed with a cosmetic suture under the skin that will dissolve in about 6 weeks. In 14 days, you can use a pair of clean scissors and cut the suture that is left outside of the skin at the ends of your incision. C. Complications are uncommon, but please contact us if you have any signs or symptoms of: 1. wound infection (fever higher than 102.5 degrees F, redness, separation of wound, drainage, or increasing pain from the incision) 2. blood clots in legs (pain, swelling, redness and warmth in legs) 3. urinary tract infection (fever higher than 102.5 degrees, burning upon urination or increased frequency of urination) 4. nerve problems (inability to walk on your toes or heels, numbness, loss of bowel or bladder control) 5. any other symptoms that concern you. D. Please call the office at if you have any concerns or questions about your operation or recovery. MANAGING PAIN AFTER SPINAL SURGERY 1. Narcotic medication is intended for short-term use and will be provided for surgical pain. Surgical pain usually lasts for a period of 4-6 weeks. Narcotic medication includes Percocet, Vicodin, Darvocet, Tylenol #3 or Lortab. 2. Longer-term pain is more appropriately treated with non-narcotic medication such as Tylenol ES. 3. Muscle spasm is not appropriately treated with narcotics. Muscle relaxers such as Soma, Flexeril or Skelaxin can be used along with Tylenol ES. 4. Remember that we all live with some "aches and pains". This is not unusual or uncommon after an injury or as we get older. 5. We will provide appropriate medication within the normal guidelines of their prescribed use. We will also be very cautious and aware of potential abuse and extended duration of patients' medication needs. 6. Please allow 2-3 days to process refills. Prescriptions will not be mailed but must be picked up at the office. FOLLOW UP VISIT: Keep your scheduled follow-up appointment. Any questions, please call the office at . Pending Studies at Discharge: No Stand-Alone Forms: My [facility], Smoking Cessation Medications and DC Order Prescriptions: New tramadol 50 mg tablet 50 mg PO Q6H PRN (Reason: pain, moderate) Qty: 30 RF: 0 oxycodone 5 mg tablet 5 mg PO Q6H PRN (Reason: pain, severe) Qty: 30 RF: 0 Continued hydrochlorothiazide 25 mg tablet 25 mg PO DAILY RF: 0 lorazepam 1 mg tablet 1 mg PO UD RF: 0 tramadol 50 mg tablet 100 mg PO Q6H RF: 0 lisinopril 10 mg tablet 10 mg PO DAILY Qty: 90 RF: 3 oxycodone-acetaminophen [Percocet] 5-325 mg Tablet 1 tab PO Q6H PRN (Reason: Pain) RF: 0 Discontinued naproxen 500 mg tablet 500 mg PO BID RF: 0 Discharge Orders: Discharge Order (Routine); Ordered 09/14/20 Ordered By: Naveed Clarke Admission Data Admit Date/Time: 09/12/20 14:26 Attending Provider: Naveed Clarke Admit Provider: Naveed Clarke Primary Care Provider: Umer Ward Other Providers: Allan Vela
== END 2020-09-14 11:05 | disposition home or self-care (01) | DRG 454 ==
LOC: ASU 07:56 → 3W 12:28

== ENCOUNTER 2022-07-10 20:21 | Inpatient (IN) ==
[2022-07-10 22:53] LABS: Basophils # (auto) 0.07 K/uL (0-0.2); Basophils % (auto) 0.4 %; Hematocrit (blood only) 33.3 % (40.1-51.0); Hemoglobin 11.3 g/dl (14.0-18.0); Immature Granulocytes % (auto) 0.6 %; Lymphocytes # (auto) 2.17 K/uL (1.2-3.4); Lymphocytes % (auto) 13.1 %; Mean Corpuscular Hemoglobin 27.6 pg (25.0-34.0); Mean Corpuscular Hgb Conc 33.9 g/dL (32.0-36.0); Mean Corpuscular Volume 81.4 fL (80.0-100.0); Mean Platelet Volume 8.5 fL (9.4-12.4); Monocytes # (auto) 1.11 K/uL (0.24-0.82); Monocytes % (auto) 6.7 %; Neutrophils # (auto) 13.07 K/uL (1.4-6.5); Neutrophils % (auto) 79.2 %; Platelet Count 732 K/uL (130-400); RDW Coefficient of Variation 14.3 % (11.5-14.5); RDW Standard Deviation 41.9 fL (36.4-46.3); Red Blood Count 4.09 M/uL (4.63-6.08); White Blood Count 16.52 K/ul (4.8-10.8)
[2022-07-10 23:26] LABS: Alanine Aminotransferase 61 U/L (7-52); Albumin Globulin Ratio 1.3 (0.9-2); Albumin Level 3.9 gm/dl (3.4-5.0); Alkaline Phosphatase 146 U/L (34-104); Anion Gap 14 (3-11); Aspartate Aminotransferase 70 U/L (13-39); BUN Creatinine Ratio 28.9 (10-20); Bilirubin,Total 0.3 mg/dl (0.2-1.0); Blood Urea Nitrogen 37 mg/dl (6-23); Calcium 9.8 mg/dl (8.5-10.1); Carbon Dioxide 18 mmol/L (21-32); Chloride 103 mmol/L (98-107); Est GFR (African American) 68.6 ml/min; Est GFR (Non-African American) 59.2 ml/min; Globulin 2.9 gm/dl (2.5-4.0); Glucose 125 mg/dl (70-99(Fasting)); Sodium 135 mmol/L (136-145); Total Protein 6.8 gm/dl (6.0-8.3)
[2022-07-10] MEDS ORDERED: SODIUM CHLORIDE 0.9% 1000ML 1,000 ML IV ONE (23:51)
[2022-07-11 00:08] LABS: Troponin I High Sensitivity 20.3 pg/ml (0-20)
[2022-07-11 00:24] LABS: Phosphorus 4.3 mg/dl (2.5-4.9)
[2022-07-11 00:41] LABS: Appearance Urine Clear (Clear); Bacteria Urine Automated Negative (Negative); Bilirubin Urine Negative (Negative); Blood Urine 2+ (Negative); Color Urine Yellow; Epithelial Cell Urine Auto >30 /lpf (0-5); Glucose Urine UA Negative (Negative); Ketones Urine Trace (Negative); Leukocyte Esterase Urine Negative (Negative); Nitrite Urine Negative (Negative); Protein Urine Negative (Negative); RBC Urine Automated >30 /hpf (0-4); Urobilinogen Urine Negative (Negative); pH Urine 5.5 (4.5-7.5)
[2022-07-11 01:34] LABS: Amphetamines+Metham, Urine Pos (Neg); Barbiturates, Urine Neg (Neg); Benzodiazepine, Urine Pos (Neg); Cocaine, Urine Pos (Neg); MDMA (Ecstacy), Urine Pos (Neg); Methadone, Urine Neg (Neg); Opiate, Urine Neg (Neg); Phencyclidine, Urine Neg (Neg)
--- NOTE | 2022-07-11 03:24 | History & Physical Report ---
Date of Service July 11, 2022 Assessment & Plan (1) Confusion: Plan: 62-year-old male with history of hypertension, heart failure with preserved ejection fraction, recent epidural abscess with treatment at [facility] at the request of his niece for confusion, inability to manage his medications at home. Patient has been living in a hotel. Has history of polysubstance abuse as well as alcohol use. Denies substance use currently however, his UDS today is positive for several agents to include cocaine, ecstasy, benzodiazepine, amphetamines. Admit to medical IV fluid and electrolyte repletion Psychiatry consultation appreciated Patient did not admit to any suicidal or homicidal ideation at this time -We will continue Flexeril as needed for spasm, naproxen as needed for pain as well as tramadol as needed for pain We will request records from [facility] F/E/Nnormal saline at 125 mL/h, potassium repletion, regular diet as tolerated ProphylaxisLovenox 40 Codefull per discussion with patient History of Present Illness Chief Complaint: confusion Primary Care Provider: Mateo Carrasco MD Tigre Camacho is a 62yo male with history of HTN, HFpEF, EtOH use and polysubstance abuse. Patient was treated at [facility] 06/02/22 for diskitis and epidural abscess - uncertain if patient had surgical intervention. He has been living in a hotel for now until he gets his housing in order. His niece found him today in the hotel - confused, disheveled, medications strewn about the room. He was brought to [facility] under 302 petition. Medical admission is being requested due to some abnormal lab work, medication non-adherence. Patient does not offer much in the way of history. He becomes angry during questioning and does not answer. He is requesting orange juice which was provided for him. He states that he "decided to do a fast" since (5 days ago) and has not eaten anything in that time. He states he wanted to lose weight. He reports that this period of fasting can explain his confusion and the disheveled state in which he was found. He denies recreational drug use or alcohol consumption. He has some baseline shortness of breath but otherwise denies fever, chills, chest pain, cough, abdominal pain, nausea, vomiting, diarrhea or constipation. He does have ongoing back pain. In the ER he is afebrile, HD stable, NAD ER Course: NSS Allergies Allergy/AdvReac Type Severity Reaction Status Date / Time gabapentin Allergy Severe SHORT OF Verified 07/11/22 01:10 BREATH cat dander Allergy Intermediate itchy Verified 07/11/22 01:10 eyes, sneezing codeine AdvReac Intermediate GI upset Verified 07/11/22 01:10 Home Medications Medication Instructions Recorded Confirmed Type hydrochlorothiazide 25 mg tablet 25 mg PO DAILY #90 tabs 01/29/22 07/11/22 Rx cyclobenzaprine 10 mg tablet 10 mg PO BID PRN muscle spasm #60 03/13/22 07/11/22 Rx tabs trazodone 50 mg tablet 50 mg PO HS #30 tabs 04/10/22 07/11/22 Rx naproxen sodium 550 mg tablet 550 mg PO TID PRN pain #90 tabs 05/11/22 07/11/22 Rx tramadol 50 mg tablet 50 mg PO .Q4-6H PRN pain, moderate 07/10/22 07/11/22 Rx #35 tabs Past Med/Surg History Medical History Blood loss anemia Diastolic dysfunction Hyperglycemia Hypertension LVH (left ventricular hypertrophy) LVH (left ventricular hypertrophy) severe Obesity Osteoarthritis Rib fracture left sided, remotely, healed without intervention- does have residual pain over area Rib pain on left side Surgical History History of arthroscopy of shoulder left History of back surgery x5 total History of knee replacement right S/P TKR (total knee replacement) Family History Denies family history of Ovarian cancer Prostate cancer Myocardial infarction Breast cancer Colorectal cancer Social History Smoking Status: Light tobacco smoker Tobacco Type: Cigarettes Second Hand Exposure: No; Hx Alcohol Use: No Hx Substance Use: Yes Prescribed Medications: Marijuana Last Used Substance Other:: medical marijuana Preferred Language: Maori Communication Ability: Effective Beliefs That Will Affect Care: None marital status: Single Current Living Situation: Parent Current Living Situation Comment: lives with mother current occupational status: unemployed Feels Safe at Home: Yes Dental Care, Regularly: No Physical Activity Frequency: Does not Exercise Seatbelt Use: always Assistive Devices: Walker Review of Systems Review of Systems: All systems reviewed & are unremarkable except as noted in HPI & below Physical Exam Physical Exam: General: patient resting comfortably, NAD, unkempt in appearance Skin: warm, dry, intact, no rashes or lesions, Well-healed surgical incision which appears old HEENT: NC/AT, PERRL, EOMI, anicteric sclera, conjunctiva without injection, external ear normal to inspection and nontender, nares patent, dry mucus membranes, dentition intact, no oropharyngeal lesions, neck supple, trachea midline, no LAD, no thyromegaly, no JVD Heart: +S1/S2, regular, no m/r/g Lungs: equal air entry bilaterally, no rales/rhonchi/wheezes Abd: +BS, soft, mildly tender with palpation, no rebound/guarding/peritoneal signs, ND, no masses/organomegaly/ascites Ext: warm, 2+ pulses in UE/LE bilaterally, no clubbing/cyanosis or edema Neuro: nonfocal, speech intact, no facial droop, moving all extremities on command with equal strength 5/5 Results & Data Results & Data ([facility]) Vital Signs (Past 12 Hours) Vital Signs Temp Pulse Resp BP Pulse Ox O2 Del Method 07/11/22 03:00 133/90 07/11/22 02:39 88/53 L 07/11/22 02:38 96 H 07/11/22 02:30 95 H 22 07/11/22 02:00 92 H 07/11/22 01:30 99 H 28 H 98 07/11/22 01:30 128/76 07/11/22 01:00 101 H 20 07/11/22 01:00 129/90 07/11/22 00:58 101 H 23 99 07/10/22 21:11 96 Room Air 07/10/22 20:28 37 C 91 H 18 130/84 99 Room Air Laboratory Results Laboratory Results WBC 16.52 K/ul (4.8-10.8) H 07/10/22 22:37 RBC 4.09 M/uL (4.63-6.08) L 07/10/22 22:37 Hgb 11.3 g/dl (14.0-18.0) L 07/10/22 22:37 Hct 33.3 % (40.1-51.0) L 07/10/22: MCV 81.4 fL (80.0-100.0) 07/10/22 22: MCH 27.6 pg (25.0-34.0) 07/10/22: MCHC 33.9 g/dL (32.0-36.0) 07/10/22: RDW Std Deviation 41.9 fL (36.4-46.3) 07/10/22 22: RDW Coeff of Adele 14.3 % (11.5-14.5) 07/10/22: Plt Count 732 K/uL (130-400) H 07/10/22: MPV 8.5 fL (9.4-12.4) L 07/10/22: Immature Gran % (Auto) 0.6 % 07/10/22: Neut % (Auto) 79.2 % 07/10/22 22:37 Lymph % (Auto) 13.1 % 07/10/22 22:37 Morrow % (Auto) 6.7 % 07/10/22: Eos % (Auto) 0.0 % 07/10/22: Baso % (Auto) 0.4 % 07/10/22: Neut # (Auto) 13.07 K/uL (1.4-6.5) H 07/10/22: Lymph # (Auto) 2.17 K/uL (1.2-3.4) 07/10/22:37 Morrow # (Auto) 1.11 K/uL (0.24-0.82) H 07/10/22 22:37 Eos # (Auto) 0.00 K/uL (0-0.50) 07/10/22: Baso # (Auto) 0.07 K/uL (0-0.2) 07/10/22: Immature Gran # (Auto) 0.10 K/uL (0.00-0.02) H 07/10/22: Sodium 135 mmol/L (136-145) L 07/10/22:37 Potassium 3.0 mmol/L (3.5-5.1) L 07/10/22 22:37 Chloride 103 mmol/L (98-107) 07/10/22 22:37 Carbon Dioxide 18 mmol/L (21-32) L 07/10/22 22:37 Anion Gap 14 (3-11) H 07/10/22 22:37 BUN 37 mg/dl (6-23) H 07/10/22 22:37 Creatinine 1.28 mg/dl (0.6-1.4) 07/10/22 22:37 Est Cr Clr Drug Dosing Not Reportable 07/10/22 22:37 Est GFR ( Amer) 68.6 ml/min 07/10/22 22:37 Est GFR (Non-Af Amer) 59.2 ml/min 07/10/22 22:37 BUN/Creatinine Ratio 28.9 (10-20) H 07/10/22 22:37 Glucose 125 mg/dl (70-99(Fasting)) H 07/10/22 22:37 Lactate 1.4 mmol/L (0.4-2.0) 07/11/22 00:23 Calcium 9.8 mg/dl (8.5-10.1) 07/10/22 22:37 Phosphorus 4.3 mg/dl (2.5-4.9) 07/10/22 22:37 Magnesium 2.0 mg/dl (1.7-2.4) 07/10/22 22:37 Total Bilirubin 0.3 mg/dl (0.2-1.0) 07/10/22 22:37 AST 70 U/L (13-39) H 07/10/22 22:37 ALT 61 U/L (7-52) H 07/10/22 22:37 Alkaline Phosphatase 146 U/L (34-104) H 07/10/22 22:37 Troponin I High Sens 20.3 pg/ml (0-20) H D 07/10/22 22:37 Total Protein 6.8 gm/dl (6.0-8.3) 07/10/22 22:37 Albumin 3.9 gm/dl (3.4-5.0) 07/10/22 22:37 Globulin 2.9 gm/dl (2.5-4.0) 07/10/22 22:37 Albumin/Globulin Ratio 1.3 (0.9-2) 07/10/22 22:37 TSH 0.414 uIu/ml (0.300-4.500) 07/10/22 22:37 Urine Color Yellow 07/11/22 00:26 Urine Appearance Clear (Clear) 07/11/22 00:26 Urine pH 5.5 (4.5-7.5) 07/11/22 00:26 Ur Specific Woodward 1.030 (1.000-1.030) 07/11/22 00:26 Urine Protein Negative (Negative) 07/11/22 00: Urine Glucose (UA) Negative (Negative) 07/11/22 00: Urine Ketones Trace (Negative) H 07/11/22 00: Urine Blood 2+ (Negative) H 07/11/22 00: Urine Nitrite Negative (Negative) 07/11/22 00: Urine Bilirubin Negative (Negative) 07/11/22 00: Urine Urobilinogen Negative (Negative) 07/11/22 00: Ur Leukocyte Esterase Negative (Negative) 07/11/22 00:26 Urine WBC (Auto) 1-5 /hpf (0-5) 07/11/22 00:26 Urine RBC (Auto) >30 /hpf (0-4) H 07/11/22 00:26 U Hyaline Cast (Auto) 1-5 /lpf (0-5) 07/11/22 00:26 U Epithel Cells (Auto) >30 /lpf (0-5) H 07/11/22 00:26 Urine Bacteria (Auto) Negative (Negative) 07/11/22 00:26 Urine Opiates Screen Neg (Neg) 07/11/22 00:26 Ur Methadone, Qual Neg (Neg) 07/11/22 00:26 Acetaminophen 16 ug/ml (10-30) 07/10/22 22:37 Urine Barbiturates Neg (Neg) 07/11/22 00:26 Ur Phencyclidine (PCP) Neg (Neg) 07/11/22 00:26 U Amphetamin/Meth Scrn Pos (Neg) H 07/11/22 00:26 MDMA (Ecstasy) Screen Pos (Neg) H 07/11/22 00:26 U Benzodiazepines Scrn Pos (Neg) H 07/11/22 00:26 Ur Cocaine Metabolite Pos (Neg) H 07/11/22 00:26 U Marijuana (THC) Screen Neg (Neg) 07/11/22 00:26 Ethyl Alcohol mg/dL < 10.0 mg/dl (<10.0) 07/10/22 22:37 SARS-CoV-2, RNA, NAAT NEGATIVE (NEGATIVE) 07/11/22 00:[address] head: Per stat readno intracranial hemorrhage, mass-effect or midline shift. There is no abnormal extra-axial fluid collection. No evidence of acute infarct. Mild periventricular white matter hypodensities are most consistent with chronic microangiopathy. The visualized paranasal sinuses and mastoid air cells are clear. No fracture. ECG Additional Comments: EKG with possible ectopic atrial rhythm with rate of 100, OR = equals 142, QRS = 132, QTc = 534. Right bundle branch and left anterior fascicular block present Code Status & VTE Plan VTE Prophylaxis Plan VTE Prophylaxis will be ordered: Yes PG Care Time/CCT Total # of Minutes Spent Total Time Spent with Patient: Total time spent is greater than 50% in coordination of care (as documented) at patient's floor/unit and/or counseling patient: Coding Level of Care Code 14564 Initial Inpt Care Lvl 2 Diagnoses Confusion R41.0
[2022-07-11] MEDS ORDERED: POTASSIUM CHLORIDE CRTAB 20 MEQ TABCR PO STA (04:25)
[2022-07-11] MEDS ORDERED: ONDANSETRON INJ 2 MG/ML 2 ML VIAL IV PRN (04:25)
[2022-07-11] MEDS ORDERED: ACETAMINOPHEN 325 MG TAB PO PRN (04:25)
[2022-07-11] MEDS: SODIUM CHLORIDE 0.9% 1000ML 1,000 ML IV SCH ×3 (04:41→19:51)
[2022-07-11] MEDS: POTASSIUM CHLORIDE / WTR 10 MEQ/100 ML PLCT IV SCH ×2 (04:41→06:42)
[2022-07-11] MEDS: traMADol HCL 50 MG TABLET PO PRN ×2 (04:41→17:14)
[2022-07-11] MEDS: CYCLOBENZAPRINE HCL 10 MG TAB PO PRN ×2 (05:40→19:37)
[2022-07-11] MEDS: NAPROXEN 250 MG TAB PO PRN ×2 (05:40→21:10)
[2022-07-11] MEDS: Patient's HEIGHT &/or WEIGHT Needed SCH ×3 (05:47→06:37)
--- NOTE | 2022-07-11 06:18 | Emergency Department Note ---
Impression & Plan Altered mental status Admit to the [facility] ED Provider Note NAME: OPAL ZAMBRANO AGE: 62 SEX: M ARRIVES VIA: Ambulance INFORMANT: Patient police ED PROVIDER(S): Chiquita Lay DO CHIEF COMPLAINT: Confusion PLAN: Disposition: Admit to the [facility] Condition: Fair MEDICAL DECISION MAKING: This is a 62-year-old male patient brought to the emergency department by EMS on a 302 petition by his niece. The patient was found in an unkempt altered mental state in a hotel. Patient has a history of polysubstance abuse. He had recently been transferred to [facility] with an epidural abscess. However, the patient signed himself out AMA without completing the course of antibiotics. He is living in a hotel. His niece found him there and felt he was not taking care of himself. Patient appears to be dehydrated on physical exam. He has an elevated BUN and transaminases. He also has a mild leukocytosis. CT scan of the brain is unremarkable. Chest x-ray is normal. I discussed the case with the [facility] and they will evaluate for further management. Triage Nursing notes reviewed and agree with them. Additional history obtained from police and EMS Prior medical records reviewed Vital Signs: reviewed and unremarkable Differential diagnosis: Hypoglycemia; intracranial process; drug abuse; electrolyte abnormality, metabolic encephalopathy ER treatment provided: IV normal saline solution Diagnostics interpreted by me: ECG: Ectopic atrial rhythm at 100 bpm. There is no obvious signs of ischemia. This is a change from his EKG in May 2022 Laboratory studies: See below Imaging studies: As per stat read CT head: No intracranial hemorrhage, mass-effect or midline shift. There is no abnormal extra-axial fluid collection. No evidence of acute infarct. Mild periventricular white matter hypodensities are most consistent with chronic microangiopathy. The visualized paranasal sinuses and mastoid air cells are clear. No fracture. HPI: 62/M arrives for evaluation of confusion. The patient was found living in a hotel. The patient's niece petitioned a 302 believing that he could not take care of her self. He was brought to the emergency department for evaluation and seems to be confused. He complains of bilateral hip pain which is not a new complaint for him. He appears somewhat dehydrated on physical exam. ROS: See above HPI for pertinent positives & negatives. A total of 10 systems reviewed and were otherwise negative. PAST MEDICAL HISTORY:See Below PAST SURGICAL HISTORY:See Below FAMILY HISTORY:See Below SOCIAL HISTORY:See Below HOME MEDICATIONS:See list ALLERGIES:See list VITALS:See Below PHYSICAL EXAMINATION: HEENT: Head - normocephalic and atraumatic Pupils are equal, round, and reactive to light. Extraocular eye muscles are intact, and sclera are anicteric. Nose - moist nasal mucosa without discharge. Mouth - moist buccal mucosa. Oropharynx is nonerythematous and there is no tonsillar exudate or edema noted. Neck: Supple; no JVD or cervical lymphadenopathy Heart: Regular rate and rhythm. There is a normal S1 and S2 with no murmurs, clicks, or gallops appreciated. Lungs: Clear to auscultation bilaterally with no wheezes, rales, or rhonchi. Abdomen: Soft, completely nontender, nondistended, with good bowel sounds. There are no palpable pulsatile masses or hepatosplenomegaly. There is no guarding, rigidity, or rebound noted. Extremities: No evidence of cyanosis, clubbing, or edema. There are easily palpable peripheral pulses. Skin: warm and dry with good turgor and no rashes. Neuro: The patient's speech is difficult to understand but this seems to be baseline. He will follow commands but is confused about place and time. He is oriented to person. ED COURSE: Times/Reassessments: 2330: Patient was evaluated in room A-6. A complete history and physical was performed. Previous electronic medical records were reviewed. Laboratory studies were drawn as above. Patient was bolused with IV normal saline solution. Patient went for CT scan of the brain which was unremarkable. Chiquita Lay DO Past Med/Surg History Medical History (Updated 07/12/22 @ 09:06 by Chiquita Lay DO) Blood loss anemia Diastolic dysfunction Hyperglycemia Hypertension LVH (left ventricular hypertrophy) LVH (left ventricular hypertrophy) severe Obesity Osteoarthritis Polysubstance use disorder Rib fracture left sided, remotely, healed without intervention- does have residual pain over area Rib pain on left side Surgical History History of arthroscopy of shoulder left History of back surgery x5 total History of knee replacement right S/P TKR (total knee replacement) Family History Denies family history of Ovarian cancer Prostate cancer Myocardial infarction Breast cancer Colorectal cancer Social History Smoking Status: Former smoker Tobacco Type: Cigarettes Second Hand Exposure: No; Hx Alcohol Use: Yes Hx Substance Use: Yes Prescribed Medications: Marijuana Last Used Substance Other:: medical marijuana Preferred Language: Yakut Communication Ability: Effective Shop Director Required: No Beliefs That Will Affect Care: None marital status: Single Current Living Situation: Alone and Homeless Current Living Situation Comment: lives with mother current occupational status: unemployed Feels Safe at Home: Yes Dental Care, Regularly: No Physical Activity Frequency: Does not Exercise Seatbelt Use: always Assistive Devices: Walker Allergies Allergies Allergy/AdvReac Type Severity Reaction Status Date / Time gabapentin Allergy Severe SHORT OF Verified 07/11/22 01:10 BREATH cat dander Allergy Intermediate itchy Verified 07/11/22 01:10 eyes, sneezing codeine AdvReac Intermediate GI upset Verified 07/11/22 01:10 Home Meds Previous Rx's Medication Instructions Recorded hydrochlorothiazide 25 mg tablet 25 mg PO DAILY #90 tabs 01/29/22 cyclobenzaprine 10 mg tablet 10 mg PO BID PRN muscle spasm #60 03/13/22 tabs trazodone 50 mg tablet 50 mg PO HS #30 tabs 04/10/22 naproxen sodium 550 mg tablet 550 mg PO TID PRN pain #90 tabs 05/11/22 tramadol 50 mg tablet 50 mg PO .Q4-6H PRN pain, moderate 07/10/22 #35 tabs Results & Data (ED) Vital Signs Vital Signs - 24 hr 07/10/22 20:28 07/10/22 21:11 07/11/22 00:58 Temperature 37 C Temperature Source Oral Pulse Rate 91 H 101 H Pulse Rate from SpO2 Sensor 101 H Respiratory Rate 18 23 Respiratory Effort / Characteristics Non-Labored Spontaneous Respiratory Depth Normal Blood Pressure 130/84 Blood Pressure Mean 99 Pulse Oximetry 99 96 99 Oxygen Delivery Method Room Air Room Air Sepsis Recent Fever Within 48 Hours No Sepsis New/Unexplained Change in Mental Status Yes Sepsis Action Taken by Nursing No Action Required 07/11/22 01:00 07/11/22 01:00 07/11/22 01:30 Temperature Temperature Source Pulse Rate 101 H Pulse Rate from SpO2 Sensor Respiratory Rate 20 Respiratory Effort / Characteristics Respiratory Depth Blood Pressure 129/90 128/76 Blood Pressure Mean 103 93 Pulse Oximetry Oxygen Delivery Method Sepsis Recent Fever Within 48 Hours Sepsis New/Unexplained Change in Mental Status Sepsis Action Taken by Nursing 07/11/22 01:30 07/11/22 02:00 07/11/22 02:30 Temperature Temperature Source Pulse Rate 99 H 92 H 95 H Pulse Rate from SpO2 Sensor 99 H Respiratory Rate 28 H 22 Respiratory Effort / Characteristics Respiratory Depth Blood Pressure Blood Pressure Mean Pulse Oximetry 98 Oxygen Delivery Method Sepsis Recent Fever Within 48 Hours Sepsis New/Unexplained Change in Mental Status Sepsis Action Taken by Nursing 07/11/22 02:38 07/11/22 02:39 07/11/22 03:00 Temperature Temperature Source Pulse Rate 96 H Pulse Rate from SpO2 Sensor Respiratory Rate Respiratory Effort / Characteristics Respiratory Depth Blood Pressure 88/53 L 133/90 Blood Pressure Mean 64 104 Pulse Oximetry Oxygen Delivery Method Sepsis Recent Fever Within 48 Hours Sepsis New/Unexplained Change in Mental Status Sepsis Action Taken by Nursing Laboratory Data Result diagrams: 07/12/22 08:29 07/10/22 22:37 Lab Results 07/10/22 07/10/22 07/10/22 Range/Units 22:37 22:37 22:37 WBC 16.52 H (4.8-10.8) K/ul RBC 4.09 L (4.63-6.08) M/uL Hgb 11.3 L (14.0-18.0) g/dl Hct 33.3 L (40.1-51.0) % MCV 81.4 (80.0-100.0) fL MCH 27.6 (25.0-34.0) pg MCHC 33.9 (32.0-36.0) g/dL RDW Std Deviation 41.9 (36.4-46.3) fL RDW Coeff of Adele 14.3 (11.5-14.5) % Plt Count 732 H (130-400) K/uL MPV 8.5 L (9.4-12.4) fL Immature Gran % (Auto) 0.6 % Neut % (Auto) 79.2 % Lymph % (Auto) 13.1 % [place]uel % (Auto) 6.7 % Eos % (Auto) 0.0 % Baso % (Auto) 0.4 % Neut # (Auto) 13.07 H (1.4-6.5) K/uL Lymph # (Auto) 2.17 (1.2-3.4) K/uL Deuel # (Auto) 1.11 H (0.24-0.82) K/uL Eos # (Auto) 0.00 (0-0.50) K/uL Baso # (Auto) 0.07 (0-0.2) K/uL Immature Gran # (Auto) 0.10 H (0.00-0.02) K/uL Sodium 135 L (136-145) mmol/L Potassium 3.0 L (3.5-5.1) mmol/L Chloride 103 (98-107) mmol/L Carbon Dioxide 18 L (21-32) mmol/L Anion Gap 14 H (3-11) BUN 37 H (6-23) mg/dl Creatinine 1.28 (0.6-1.4) mg/dl Est Cr Clr Drug Dosing Not Reportable Est GFR ( Amer) 68.6 ml/min Est GFR (Non-Af Amer) 59.2 ml/min BUN/Creatinine Ratio 28.9 H (10-20) Glucose 125 H (70-99(Fasting)) mg/dl Lactate (0.4-2.0) mmol/L Calcium 9.8 (8.5-10.1) mg/dl Phosphorus 4.3 (2.5-4.9) mg/dl Magnesium 2.0 (1.7-2.4) mg/dl Total Bilirubin 0.3 (0.2-1.0) mg/dl AST 70 H (13-39) U/L ALT 61 H (7-52) U/L Alkaline Phosphatase 146 H (34-104) U/L Troponin I High Sens 20.3 H D (0-20) pg/ml Total Protein 6.8 (6.0-8.3) gm/dl Albumin 3.9 (3.4-5.0) gm/dl Globulin 2.9 (2.5-4.0) gm/dl Albumin/Globulin Ratio 1.3 (0.9-2) TSH (0.300-4.500) uIu/ml Urine Color Urine Appearance (Clear) Urine pH (4.5-7.5) Ur Specific [place] (1.000-1.030) Urine Protein (Negative) Urine Glucose (UA) (Negative) Urine Ketones (Negative) Urine Blood (Negative) Urine Nitrite (Negative) Urine Bilirubin (Negative) Urine Urobilinogen (Negative) Ur Leukocyte Esterase (Negative) Urine WBC (Auto) (0-5) /hpf Urine RBC (Auto) (0-4) /hpf U Hyaline Cast (Auto) (0-5) /lpf U Epithel Cells (Auto) (0-5) /lpf Urine Bacteria (Auto) (Negative) Urine Opiates Screen (Neg) Ur Methadone, Qual (Neg) Acetaminophen (10-30) ug/ml Urine Barbiturates (Neg) Ur Phencyclidine (PCP) (Neg) U Amphetamin/Meth Scrn (Neg) MDMA (Ecstasy) Screen (Neg) U Benzodiazepines Scrn (Neg) Ur Cocaine Metabolite (Neg) U Marijuana (THC) Screen (Neg) Ethyl Alcohol mg/dL < 10.0 (<10.0) mg/dl SARS-CoV-2, RNA, NAAT (NEGATIVE) 07/10/22 07/10/22 07/11/22 Range/Units 22:37 22:37 00:23 WBC (4.8-10.8) K/ul RBC (4.63-6.08) M/uL Hgb (14.0-18.0) g/dl Hct (40.1-51.0) % MCV (80.0-100.0) fL MCH (25.0-34.0) pg MCHC (32.0-36.0) g/dL RDW Std Deviation (36.4-46.3) fL RDW Coeff of Adele (11.5-14.5) % Plt Count (130-400) K/uL MPV (9.4-12.4) fL Immature Gran % (Auto) % Neut % (Auto) % Lymph % (Auto) % Deuel % (Auto) % Eos % (Auto) % Baso % (Auto) % Neut # (Auto) (1.4-6.5) K/uL Lymph # (Auto) (1.2-3.4) K/uL Deuel # (Auto) (0.24-0.82) K/uL Eos # (Auto) (0-0.50) K/uL Baso # (Auto) (0-0.2) K/uL Immature Gran # (Auto) (0.00-0.02) K/uL Sodium (136-145) mmol/L Potassium (3.5-5.1) mmol/L Chloride (98-107) mmol/L Carbon Dioxide (21-32) mmol/L Anion Gap (3-11) BUN (6-23) mg/dl Creatinine (0.6-1.4) mg/dl Est Cr Clr Drug Dosing Est GFR ( Amer) ml/min Est GFR (Non-Af Amer) ml/min BUN/Creatinine Ratio (10-20) Glucose (70-99(Fasting)) mg/dl Lactate 1.4 (0.4-2.0) mmol/L Calcium (8.5-10.1) mg/dl Phosphorus (2.5-4.9) mg/dl Magnesium (1.7-2.4) mg/dl Total Bilirubin (0.2-1.0) mg/dl AST (13-39) U/L ALT (7-52) U/L Alkaline Phosphatase (34-104) U/L Troponin I High Sens (0-20) pg/ml Total Protein (6.0-8.3) gm/dl Albumin (3.4-5.0) gm/dl Globulin (2.5-4.0) gm/dl Albumin/Globulin Ratio (0.9-2) TSH 0.414 (0.300-4.500) uIu/ml Urine Color Urine Appearance (Clear) Urine pH (4.5-7.5) Ur Specific [place] (1.000-1.030) Urine Protein (Negative) Urine Glucose (UA) (Negative) Urine Ketones (Negative) Urine Blood (Negative) Urine Nitrite (Negative) Urine Bilirubin (Negative) Urine Urobilinogen (Negative) Ur Leukocyte Esterase (Negative) Urine WBC (Auto) (0-5) /hpf Urine RBC (Auto) (0-4) /hpf U Hyaline Cast (Auto) (0-5) /lpf U Epithel Cells (Auto) (0-5) /lpf Urine Bacteria (Auto) (Negative) Urine Opiates Screen (Neg) Ur Methadone, Qual (Neg) Acetaminophen 16 (10-30) ug/ml Urine Barbiturates (Neg) Ur Phencyclidine (PCP) (Neg) U Amphetamin/Meth Scrn (Neg) MDMA (Ecstasy) Screen (Neg) U Benzodiazepines Scrn (Neg) Ur Cocaine Metabolite (Neg) U Marijuana (THC) Screen (Neg) Ethyl Alcohol mg/dL (<10.0) mg/dl SARS-CoV-2, RNA, NAAT (NEGATIVE) 07/11/22 07/11/22 07/11/22 Range/Units 00:26 00:26 00:50 WBC (4.8-10.8) K/ul RBC (4.63-6.08) M/uL Hgb (14.0-18.0) g/dl Hct (40.1-51.0) % MCV (80.0-100.0) fL MCH (25.0-34.0) pg MCHC (32.0-36.0) g/dL RDW Std Deviation (36.4-46.3) fL RDW Coeff of Adele (11.5-14.5) % Plt Count (130-400) K/uL MPV (9.4-12.4) fL Immature Gran % (Auto) % Neut % (Auto) % Lymph % (Auto) % [place] % (Auto) % Eos % (Auto) % Baso % (Auto) % Neut # (Auto) (1.4-6.5) K/uL Lymph # (Auto) (1.2-3.4) K/uL [place]uel # (Auto) (0.24-0.82) K/uL Eos # (Auto) (0-0.50) K/uL Baso # (Auto) (0-0.2) K/uL Immature Gran # (Auto) (0.00-0.02) K/uL Sodium (136-145) mmol/L Potassium (3.5-5.1) mmol/L Chloride (98-107) mmol/L Carbon Dioxide (21-32) mmol/L Anion Gap (3-11) BUN (6-23) mg/dl Creatinine (0.6-1.4) mg/dl Est Cr Clr Drug Dosing Est GFR ( Amer) ml/min Est GFR (Non-Af Amer) ml/min BUN/Creatinine Ratio (10-20) Glucose (70-99(Fasting)) mg/dl Lactate (0.4-2.0) mmol/L Calcium (8.5-10.1) mg/dl Phosphorus (2.5-4.9) mg/dl Magnesium (1.7-2.4) mg/dl Total Bilirubin (0.2-1.0) mg/dl AST (13-39) U/L ALT (7-52) U/L Alkaline Phosphatase (34-104) U/L Troponin I High Sens (0-20) pg/ml Total Protein (6.0-8.3) gm/dl Albumin (3.4-5.0) gm/dl Globulin (2.5-4.0) gm/dl Albumin/Globulin Ratio (0.9-2) TSH (0.300-4.500) uIu/ml Urine Color Yellow Urine Appearance Clear (Clear) Urine pH 5.5 (4.5-7.5) Ur Specific [place] 1.030 (1.000-1.030) Urine Protein Negative (Negative) Urine Glucose (UA) Negative (Negative) Urine Ketones Trace H (Negative) Urine Blood 2+ H (Negative) Urine Nitrite Negative (Negative) Urine Bilirubin Negative (Negative) Urine Urobilinogen Negative (Negative) Ur Leukocyte Esterase Negative (Negative) Urine WBC (Auto) 1-5 (0-5) /hpf Urine RBC (Auto) >30 H (0-4) /hpf U Hyaline Cast (Auto) 1-5 (0-5) /lpf U Epithel Cells (Auto) >30 H (0-5) /lpf Urine Bacteria (Auto) Negative (Negative) Urine Opiates Screen Neg (Neg) Ur Methadone, Qual Neg (Neg) Acetaminophen (10-30) ug/ml Urine Barbiturates Neg (Neg) Ur Phencyclidine (PCP) Neg (Neg) U Amphetamin/Meth Scrn Pos H (Neg) MDMA (Ecstasy) Screen Pos H (Neg) U Benzodiazepines Scrn Pos H (Neg) Ur Cocaine Metabolite Pos H (Neg) U Marijuana (THC) Screen Neg (Neg) Ethyl Alcohol mg/dL (<10.0) mg/dl SARS-CoV-2, RNA, NAAT NEGATIVE (NEGATIVE) Administered Medications Cyclobenzaprine HCl (Cyclobenzaprine Hcl 10 Mg Tab) 10 mg PO BID PRN PRN Reason: muscle spasm Stop: 08/10/22 04:24 Last Admin: 07/12/22 04:17 Dose: 10 mg Documented By: Admin: 07/11/22 19:37 Dose: 10 mg Documented By: [id number] Admin: 07/11/22 05:40 Dose: 10 mg Documented By: CHRIS Enoxaparin Sodium (Enoxaparin Inj 40 Mg/0.4 Ml Syr) 40 mg SQ Q24H CHIARA Stop: 08/10/22 05:59 Last Admin: 07/12/22 06:16 Dose: 40 mg Documented By: Admin: 07/11/22 08:41 Dose: Not Given Documented By: PRICE Sodium Chloride (Nss 1000ml) 1,000 mls @ 125 mls/hr IV .Q8H CHIARA Stop: 08/10/22 04:24 Last Admin: 07/12/22 04:27 Dose: 125 mls/hr Documented By: Infusion: 07/12/22 03:51 Dose: 125 mls/hr Documented By: Admin: 07/11/22 19:51 Dose: 125 mls/hr Documented By: Infusion: 07/11/22 19:51 Dose: 0 mls/hr Documented By: Admin: 07/11/22 12:32 Dose: 125 mls/hr Documented By: Infusion: 07/11/22 12:32 Dose: 125 mls/hr Documented By: Admin: 07/11/22 04:41 Dose: 125 mls/hr Documented By: CHRIS Aztreonam 2,000 mg/ Dextrose 110 mls @ 110 mls/hr IV Q8H CHIARA; Protocol Stop: 08/22/22 18:59 Last Infusion: 07/12/22 04:28 Dose: 0 mls/hr Documented By: Admin: 07/12/22 03:15 Dose: 110 mls/hr Documented By: Infusion: 07/12/22 00:28 Dose: 0 mls/hr Documented By: Admin: 07/11/22 22:08 Dose: 110 mls/hr Documented By: [id number] Vancomycin HCl 750 mg/ Sodium (Chloride) 265 mls @ 200 mls/hr IV Q12H CHIARA Stop: 08/23/22 05:59 Last Infusion: 07/12/22 07:52 Dose: 0 mls/hr Documented By: Admin: 07/12/22 06:02 Dose: 200 mls/hr Documented By: RADHA Naproxen (Naproxen 250 Mg Tab) 500 mg PO TID PRN PRN Reason: pain Last Admin: 07/11/22 21:10 Dose: 500 mg Documented By: [id number] Admin: 07/11/22 05:40 Dose: 500 mg Documented By: CHRIS Tramadol HCl (Tramadol Hcl 50 Mg Tablet) 50 mg PO Q6H PRN PRN Reason: pain, moderate Stop: 08/10/22 04:24 Last Admin: 07/12/22 05:12 Dose: 50 mg Documented By: Admin: 07/11/22 17:14 Dose: 50 mg Documented By: Admin: 07/11/22 04:41 Dose: 50 mg Documented By: CHRIS Trazodone HCl (Trazodone Hcl 50 Mg Tab) 50 mg PO HS CHIARA Stop: 08/10/22 20:59 Last Admin: 07/11/22 21:09 Dose: 50 mg Documented By: [id number] Discontinued Medications Sodium Chloride (Nss 1000ml) 1,000 mls @ 999 mls/hr IV .Q1H1M ONE Stop: 07/11/22 00:51 Last Infusion: 07/11/22 02:23 Dose: 0 mls/hr Documented By: Admin: 07/11/22 01:00 Dose: 999 mls/hr Documented By: LENORA Potassium Chloride (K Vicente / Wtr) 10 meq in 100 mls @ 100 mls/hr IV Q1H CHIARA Stop: 07/11/22 06:24 Last Infusion: 07/11/22 08:49 Dose: 0 mls/hr Documented By: Admin: 07/11/22 06:42 Dose: 50 mls/hr Documented By: Infusion: 07/11/22 06:26 Dose: 50 mls/hr Documented By: Infusion: 07/11/22 04:56 Dose: 50 mls/hr Documented By: Admin: 07/11/22 04:41 Dose: 100 mls/hr Documented By: CHRIS Multivitamins 10 ml/ Thiamine HCl 100 mg/ Folic Acid 1 mg/Sodium Chloride 1,011.2 mls @ 500 mls/hr IV .Q2H2M ONE Stop: 07/11/22 14:01 Last Infusion: 07/11/22 14:36 Dose: 0 mls/hr Documented By: Admin: 07/11/22 12:31 Dose: 500 mls/hr Documented By: RADHA Vancomycin HCl 1,750 mg/ (Sodium Chloride) 535 mls @ 200 mls/hr IV 1830 ONE Stop: 07/11/22 21:10 Last Infusion: 07/11/22 21:30 Dose: 0 mls/hr Documented By: Admin: 07/11/22 18:45 Dose: 200 mls/hr Documented By: KLEVER Lorazepam 2 mg/ Syringe 2 mls @ 2 mls/min IV TODAY@2200 ONE Stop: 07/11/22 22:01 Last Admin: 07/11/22 21:52 Dose: Not Given Documented By: LORELEI Lorazepam (Lorazepam 0.5 Mg Tab) 0.5 mg PO NOW STA Stop: 07/11/22 14:15 Last Admin: 07/11/22 14:24 Dose: 0.5 mg Documented By: RADHA Lorazepam (Lorazepam 2 Mg/2 Ml Syr) Confirm Administered Dose 2 mg .ROUTE .STK- MED ONE Stop: 07/11/22 21:50 Last Admin: 07/11/22 21:52 Dose: 2 mg Documented By: LORELEI Miscellaneous (Patient's Height &/Or Weight Needed) 1 each N/A Q2H CHIARA Stop: 08/10/22 00:14 Last Admin: 07/11/22 06:37 Dose: Not Given Documented By: Admin: 07/11/22 06:02 Dose: 1 each Documented By: Admin: 07/11/22 05:47 Dose: 1 each Documented By: DARIELA Potassium Chloride (Potassium Chloride Crtab 20 Meq Tabcr) 40 meq PO NOW STA Stop: 07/11/22 04:26 Last Admin: 07/11/22 04:41 Dose: 40 meq Documented By: CHRIS Thiamine HCl (Thiamine Hcl 100 Mg/Ml 2 Ml Vial) 100 mg IM NOW STA Stop: 07/11/22 11:56 Last Admin: 07/11/22 12:42 Dose: 100 mg Documented By: RADHA Discharge Plan Visit Data Chief Complaint: Confusion ED Provider: Chiquita Lay Discharge Problem: Altered mental status Patient Disposition: Admitted As Inpatient Discharge Instructions Interventions: ED Discharge Assessment Last Done: 07/11/22 04:26
--- NOTE | 2022-07-11 06:35 | XRay Report ---
XR chest 1V portable HISTORY: 62 years-old Male AMS, confusion acutely altered mental status. COMPARISON: Chest radiograph 05/31/2022 TECHNIQUE: Semierect AP view of the chest FINDINGS: Cardiac silhouette is upper limits of normal in size. No pneumothorax, pleural effusion, airspace con solidation or overt pulmonary edema. Degenerative changes of the shoulders and spine. Healed chronic left-sided rib fractures. The patient is rotated towards the left. IMPRESSION: No acute process. ACT 112: Negative or not required by law. The above report was generated using voice recognition software. It may contain grammatical, syntax o r spelling errors. Electronically signed by: Eliazar Gonzalez M.D. 07/11/2022 6:34 AM
--- NOTE | 2022-07-11 07:04 | CT Scan Report ---
CT SCAN OF THE BRAIN WITHOUT IV CONTRAST CLINICAL HISTORY: Change in mental status. COMPARISON STUDY: No priors. TECHNIQUE: Unenhanced axial CT scan of the brain is performed from the vertex to the skull base. A do se lowering technique was utilized adhering to the principles of ALARA. CT DOSE: 614.27 mGy.cm FINDINGS: Brain parenchyma: There is age-related involutional change noting minimal microangiopathic disease. T here is no hemorrhage, mass effect, or evidence of acute territorial ischemia by CT criteria. Weeks-wh ite matter differentiation is preserved. No extra-axial fluid collection is seen. Ventricles, sulci, cisterns: Prominent secondary to involutional change. Intracranial vasculature: There is atherosclerotic calcification of the cavernous carotid arteries. Calvarium: Unremarkable. Sinuses and mastoids: The visualized paranasal sinuses are clear. The mastoid air cells are well pneu matized. Orbits: The bony orbits are grossly intact. IMPRESSION: There is no hemorrhage, mass effect, or evidence of acute territorial ischemia by CT [place]. ACT 112: Negative or not required by law. Electronically signed by: Arian Mendoza M.D. 07/11/2022 7:03 AM
[2022-07-11] MEDS: ENOXAPARIN INJ 40 MG/0.4 ML SYR SQ SCH (08:41)
--- NOTE | 2022-07-11 08:44 | Electrocardiogram Report ---
Test Reason : Blood Pressure : / mmHG Vent. Rate : 100 BPM Atrial Rate : 100 BPM P-R Int : 142 ms QRS Dur : 132 ms QT Int : 414 ms P-R-T Axes : 259 -69 048 degrees QTc Int : 534 ms Unusual P axis, possible ectopic atrial rhythm Right bundle branch block Left anterior fascicular block Bifascicular block Abnormal ECG When compared with ECG of 31-MAY-2022 11:43, Ectopic atrial rhythm has replaced Sinus rhythm Confirmed by Brian Mahoney ([id number]) on 07/11/2022 8:44:26 AM Referred By: REFERRED SELF Confirmed By:Koko Mahoney
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
[2022-07-11] MEDS ORDERED: LORazepam 1 MG TAB PO PRN (11:45)
[2022-07-11] MEDS ORDERED: THIAMINE HCL 100 MG/ML 2 ML VIAL IM STA (11:55)
[2022-07-11] MEDS ORDERED: MULTI-VITAMIN INFUSION 10 ML, THIAMINE HCL 100 MG, FOLIC ACID 1 MG in SODIUM CHLORIDE 0... IV ONE (12:00)
[2022-07-11] MEDS ORDERED: LORazepam 0.5 MG TAB PO STA (14:14)
--- NOTE | 2022-07-11 16:37 | History & Physical Bridge Note ---
Date of Service July 11, 2022 History & Physical Bridge Note I have examined the patient, reviewed the History & Physical and in the interval since the performance of the History & Physical I have noted the following changes of clinical significance: no changes noted CT head negative for acute CVA CXR negative for acute process Patient evaluated this afternoon around lunch. Per nursing good appetite, ate all of lunch. Per patient, had been staying at [facility] since d/c from [facility] for back surgery. Answering questions appropriately but does not have capacity. Unsure why he was brought in but he notes he was told to be confused and knows his potassium was low but that he had been fasting for several days in the hotel until his follow up appointment. Does note that he has some continued back pain in LUMBAR region (had prior L1-L2 discitis/osteomyelitis May 31, 2022 MRI requiring transfer) MRI ordered, but awaiting response from family for questionnaire (reports they live in [facility]) does have some minor weakness, but no focal deficit on exam from side/side Per nursing, prior needed intubated for MRI at [facility]. Given stability of patient/answering questions/afebrile will hold off urgent need for this but if after electrolyte replacement/polysubstance abuse of meth/cocaine. UDS positive for meth, MDMA, benzodiazepines Psych consulted -- no need to start antipsychotic at this point.Acute risk of harm to self/others low given denial SI/GI but chronic risk moderate given substance abuse -- For behavioral emergency: olanzapine 2.5mg IM x 1 (NOT EXCEED 10mg in 24 hours, never co-admin with IM/IV benzodiazepines) --> If needed for these meds, will need to be on monitored bed (currently ordered medical) Denies alcohol use, however LFTs appear to be more consistent with recent alcohol use. Monitor repeat LFTs Continued 1:1 on 302 per psych. WBC elevated to 16.52k on admit, ?reactive from drug/alcohol use/found confused? Afebrile Checked procalcitonin given recent epidural abscess requiring drainage --> elevated to 12.38 Blood cultures pending Na 135 == ordered banana bag for concerns possible drinking, continue daily thiamine/folate AWSS scale ordered, 0.5mg x 1 PO dose provided this afternoon prior to eval for reported anxiety and mood appeared stable. K 3.0 -- replacement ordered. Mag 2.0. Lactic 1.4 Plt elevated to 700s, ?reactive will check anemia labs as well (prior B12 low normal 418 in Nov 2021) Repeating labs/electrolyte replacement this afternoon as required Possibly begin empiric antibiotics this evening after discussion with supervising physician vs monitor repeat labs for now
--- NOTE | 2022-07-11 17:58 | Communication Note ---
Date of Service: July 11, 2022 Prior admit to [facility] to be on Vanco/Aztreonam until 07/14 Had signed out AMA prior to being found in hotel room (per d/c note, had capacity at that time) Will restart Aztreonam/Vancomycin per discussion with pharmacy Will need to request culture results from [facility] Will consult ID Change MRI lumbar spine to STAT (ordered this am 929am), not yet completed. had MRI in may without need for intubation
[2022-07-11] MEDS ORDERED: VANCOMYCIN CONSULT ACTIVE PRN (18:03)
[2022-07-11] MEDS ORDERED: VANCOMYCIN HCL 1,750 MG in SODIUM CHLORIDE 0.9% 500 ML IV ONE (18:30)
[2022-07-11] MEDS: traZODone HCL 50 MG TAB PO SCH (21:09)
[2022-07-11] MEDS ORDERED: LORazepam 2 MG/2 ML SYR ONE (21:49)
--- NOTE | 2022-07-11 21:59 | Pharmacy Report ---
Pharmacy Vanc AUC Short Note - Date of Service July 11, 2022 - Assessment & Plan Assessment 62 year old M receiving started on vancomycin and aztreonam. Prior admit to [facility] and was to be on both antibiotics until 07/14 for discitis/epidural abscess. Provider reports noncompliance with medications, screening positive for polysubstance abuse on admission. Plan Vancomycin * AUC/FRANCISCO is the preferred PK/PD target for vancomycin * AUC guided dosing is effective and associated with decreased risk of nephrotoxicity compared to traditional trough targets * Gave loading dose of vancomycin 1750 mg x 1, will start vancomycin 750 mg iv q 12 hrs * This dosing is predicted to acheive a trough level of 19 mcg/mL is predicted to achieve target AUC/FRANCISCO of 400-600 mg/L.hr and may be associated with a %17 risk of nephrotoxicity * Plan to continue level in next 24-48 hours to reevaluate Pharmacy will continue to follow and will adjust dose/frequency as necessary. Thank you.
[2022-07-11] MEDS ORDERED: LORazepam 2 MG in SYRINGE 0 ML IV ONE (22:00)
[2022-07-11] MEDS: AZTREONAM 2,000 MG in DEXTROSE 5% 100 ML IV SCH (22:08)
[2022-07-12] MEDS: AZTREONAM 2,000 MG in DEXTROSE 5% 100 ML IV SCH (03:15)
[2022-07-12] MEDS: CYCLOBENZAPRINE HCL 10 MG TAB PO PRN (04:17)
[2022-07-12] MEDS: SODIUM CHLORIDE 0.9% 1000ML 1,000 ML IV SCH (04:27)
[2022-07-12] MEDS: traMADol HCL 50 MG TABLET PO PRN ×2 (05:12→21:42)
[2022-07-12] MEDS ORDERED: VANCOMYCIN HCL 750 MG in SODIUM CHLORIDE 0.9% 250 ML IV SCH (06:00)
[2022-07-12] MEDS: ENOXAPARIN INJ 40 MG/0.4 ML SYR SQ SCH (06:16)
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
[2022-07-12 08:50] LABS: Hematocrit (blood only) 27.1 % (40.1-51.0); Mean Corpuscular Hemoglobin 27.2 pg (25.0-34.0); Mean Corpuscular Hgb Conc 33.2 g/dL (32.0-36.0); Mean Corpuscular Volume 81.9 fL (80.0-100.0); Mean Platelet Volume 8.4 fL (9.4-12.4); Platelet Count 492 K/uL (130-400); RDW Coefficient of Variation 14.5 % (11.5-14.5); RDW Standard Deviation 43.1 fL (36.4-46.3); Red Blood Count 3.31 M/uL (4.63-6.08); White Blood Count 9.07 K/ul (4.8-10.8)
[2022-07-12] MEDS ORDERED: LORazepam 1 MG TAB PO STA (08:59)
[2022-07-12] MEDS ORDERED: THIAMINE HCL 100 MG in SYRINGE 9 ML IV SCH (09:00)
[2022-07-12] MEDS ORDERED: FLUARIX QUADRIVALENT 0.5 ML SYR IM ONE (09:00)
[2022-07-12 09:23] LABS: C Reactive Protein 2.54 mg/dl (0-0.5)
[2022-07-12] MEDS: FOLIC ACID 1 MG in SYRINGE 9.8 ML IV SCH (09:23)
[2022-07-12] MEDS: NAPROXEN 250 MG TAB PO PRN (09:24)
[2022-07-12] MEDS: CYANOCOBALAMIN 1000 MCG/ML VIAL IM SCH (09:24)
[2022-07-12 09:35] LABS: Albumin Level 2.9 gm/dl (3.4-5.0); BUN Creatinine Ratio 24.4 (10-20); Bilirubin Direct 0.1 mg/dl (0-0.2); Bilirubin,Total 0.2 mg/dl (0.2-1.0); Calcium 8.5 mg/dl (8.5-10.1); Creatinine Clr Calc Pharmacy 84.3 ml/min; Est GFR (African American) 111.3 ml/min; Est GFR (Non-African American) 96.1 ml/min; Potassium 3.1 mmol/L (3.5-5.1); Total Protein 5.1 gm/dl (6.0-8.3)
[2022-07-12 09:36] LABS: Ferritin 125.4 ng/ml (8-388)
[2022-07-12 09:42] LABS: Folate (Folic Acid) > 22.30 ng/ml (>5.38)
[2022-07-12 09:43] LABS: Vitamin B12 1306 pg/ml (180-914)
[2022-07-12] MEDS ORDERED: POTASSIUM CHLORIDE CRTAB 20 MEQ TABCR PO STA (09:44)
[2022-07-12] MEDS ORDERED: GADOBUTROL 65ML VIAL IV ONE (10:37)
[2022-07-12] MEDS ORDERED: MAGNESIUM SULFATE / D5W 1 GM/100 ML BAG IV ONE (11:01)
--- NOTE | 2022-07-12 11:11 | Magnetic Resonance Report ---
MRI OF THE LUMBAR SPINE WITH AND WITHOUT CONTRAST CLINICAL HISTORY: back pain, recent psoas abscess drainage COMPARISON STUDY: Lumbar spine MRI May 31, 2022. Lumbar spine radiographs April 25, 2022. Lumbar s pine CT March 13, 2021. TECHNIQUE: Utilizing a 1.5 Jena magnet and dedicated coil, multiplanar, multiecho imaging of the [facility] spine was performed before and after uneventful IV administration of 7 mL of Gadavist. FINDINGS: For purposes of numbering on this exam, the L5-S1 disc space is assigned to axial image 27 of 30. The re are postoperative findings consistent with posterior decompression with pedicle screw fusion from L2 through S1. Fluid signal within the L1 vertebral body and L1-L2 disc space is again noted. This wa s shown on prior exam. There is diminished T1 marrow signal within the L1 and L2 vertebral bodies. Th is is consistent with discitis/osteomyelitis which was shown on previous MRI. L2-L3 discectomy is not ed as well as L4-L5 and L5-S1 discectomies. This exam is compromised by susceptibility artifact from the hardware. Severe central canal stenosis at L1-L2 is unchanged. No intracanalicular fluid collecti on is identified. Increased T2 signal within the paraspinal musculature is unchanged. The abscesses w ithin the bilateral psoas muscles have significantly decreased in size since MRI of May 31, 2022. Right psoas fluid collection now measures 2.2 x 1.6 cm. It previously measured 3.9 x 2.6 cm. A left p soas fluid collection measures 1.1 cm. It previously measured 1.9 cm. These collections contain T2 hy pointense material. No new fluid collections are present. The bladder is distended. Left SI joint fus ion is partially imaged. IMPRESSION: 1. Significant decrease in size of the bilateral psoas intramuscular abscesses since MRI of May. No new fluid collections. 2. Findings consistent with L1-L2 discitis and osteomyelitis which was shown on MRI of May 31 2. No epidural fluid collection identified. Exam compromised by susceptibility artifact from the hard lucia. 3. No change in severe central canal stenosis at L1-L2. 4. Postoperative findings within the lumbar spine, as above. 5. Distended bladder. ACT 112: Negative or not required by law. Electronically signed by: Christophe Cormier M.D. 07/12/2022 11:09 AM
--- NOTE | 2022-07-12 11:37 | Psychiatric Progress Note ---
Date of Service July 12, 2022 Impression / Recommendations Impression 62 yo old with history of polysubstance use, recently admitted for >1 month at [facility] for encephalopathy, alcohol use, osteomyelitis re-presents with failure of self-care and confusion on 302 warrant. Diagnostically suspect encephalopathy likely a combination of substance-induced, substance-withdrawal and from lack of po intake and lack of medication adherence for recent infection. Will continue to monitor but suspect 302 warrant will need to be dispositioned as seems there is no primary psychiatric condition underlying his presentation (substance use disorders are not allowable conditions for involunta ry psychiatric treatment in [facility]) and no current evidence of acute psychosis, depression nor maryellen. He definitely doesn't have decision making capacity to leave AMA at this time as he doesn't know what he's being treated for, risks of leaving, benefits of staying or even basic knowledge of his recent and current treatment. He was fully oriented during my assessment and while having some odd behaviors, such as not wearing clothes, he has rational explanations for his decisions (i.e. doesn't like that clothes are uncomfortable, wasn't eating to lose weight). Suspect substance use of meth and cocaine played significant role in his lack of appetite and lack of adherence with medications as well. Unclear if he has been using alcohol, no current signs of nystagmus, changes in EOMs or confabulations but remains concern with alcohol use history for Wernicke encephalopathy. Did not observe gait as he cited pain with moving from bed. Wouldn't start an antipsychotic at this point as his QTc is >500ms. In case of behavioral emergency would use olanzapine 2.5mg IM and he'd need to be on telemetry (zyprexa seemed to work well at [place] and his QTc was prolonged there too). Acute and chronic risk of self-harm are elevated given his lack of insight, poor self-care and risk of decompensation or due to inability to care for his basic needs of nutrition and medical treatment. 07/12/22: Decision making capacity assessment: regarding decision making capacity about leaving AMA, refusing recommended treatment of transfer to facility that has intervention radiology to aspirate and drain his abscess. Criterion: Patient Task: 1. Communicates a choice. Patient able to clearly indicate preferred treatment option in a clear and consistent manner: Yes states his desire to be discharged home but this is inconsistent. Notably stated that if insurance covers his medical admission (his main concern is cost) then he would be more agreeable to recommended treatment. Per discussion with hospitalist both that provider and myself re-iterated to him that current treatments are deemed medically necessary and insurance is covering this which he could not recall having discussed earlier today. He does state "if it's paid for I'll do it, I just won't be happy about it". 2.Understands information provided. Patient understands his condition and treatment options: NO. He can state that he has a "bone infection" but is unable to describe the extent of this (that he has an abscess) nor can he describe the recommended treatment of aspiration which the hospitalist provider discussed with him. He can state that he is being given "two IV antibiotics" and states "and maybe physical therapy at some point". 3. Appreciates consequences. Patient shows appropriately nuanced appreciation for the risks & benefits associated with available treatment options, including no treatment: NO. He cannot state any risks to leaving the hospital without treatment stating the risks are "none because I have family support and was told [facility] has services of people who can check on me". He also cannot state any benefits to continuing to receive treatment stating "not many because the downside is so much worse and I'll feel better in two weeks anyway". 4. Manipulates relevant information Patient able to rationally weigh risks & benefits, as well as offer reasons for his decision: NO. He cannot identify risks/benefits even after I re-iterate risks hospitalist discussed with him regarding sepsis or if untreated. He has also shown he struggles to follow-up with outpatient care and cannot speak to ways he would identify worsening of his condition if at home or how he would get additional help. States he would know if he had a blood infection because "I'd get scratch buitrago on my body". Based on [facility] evaluation above he is not deemed to have decision making capacity to leave [place] nor to refuse transfer for ongoing medication treatment for his infection. He has no ability to cite any risks nor benefits of treatment, no awareness of severity of his condition nor risk for sepsis or if untreated. Will keep [address] for now given ongoing concerns about lack of self-care and statement of SI earlier to hospitalist, though now denying again and stating done out of frustration. While he does not appear to have primary psychiatric condition collateral information notable for concern for significant worsening of self-care and history of bizarre behavior. (1) Encephalopathy: (2) Polysubstance use disorder: Plan 07/12/22: Continues to lack decision making capacity regarding medical decisions about transfer for treatment of abscess. Discussed at length with hospitalist providers throughout the day. 07/11/22: -1-on-1 as on 302 warrant, cannot leave AMA and lacks decision making capacity to do so -Would start AWSS with thiamine and folic acid -Continue medical workup to rule out and treat any underlying causes contributing to potential delirium, avoid or limit use of deliriogenic medications (benzodiazepines, opioids, anticholinergics) -Continue with delirium prevention measures: raising blinds during the day, closing at night, frequent re-orientation, contact with family/friends, explaining procedures/nursing care measures prior to physical contact, correct any hearing and visual impairments -For behavioral emergency: olanzapine 2.5 mg IM x 1 (DO NOT exceed 10mg per 24 hours, NEVER co-administer with IM or IV benzodiazepines). Would need to be on telemetry if this was required given prolonged QTc -If he allows [facility] for sister/niece psych liason will attempt to gather additional background on psych hx, family hx Risk Factors Assessment Do You Have Access To A Gun?: No Interval History Identifying Information 62 yo man, currently living in hotel as he is homeless, with history of polysubstance use, depression and history of back surgeries, recently admitted to [facility] from 05/31/22 to 07/05/22 for acute encephalopathy, alcohol withdrawal, and osteomyelitis of lumbar spine requiring IV antibiotics re- presented to the ED on box A 302 warrant for failure of self-care. Chief Complaint "I just had an MRI, it was torture". Review of Systems Notes slept last night, eating Subjective Subjective Patient was seen & assessed and interval progress reviewed. Fully oriented though he thinks he arrived to our hospital via "I was driven here from [place]". Does recall meeting me yesterday. Continues to endorse back pain but limited awareness of how this could be related in part to his current infection. Remains eager to leave the hospital. Noted to have brought in a large quantity of rossi and marijuana with him when brought to the hospital which has been secured. He remains perseverative about his need to leave so he can work on finding an apartment but doesn't have anything leased yet so unclear what the callahan is. When asked why the urgency he says "I got a whole place to get set up". Continues to deny SI. Expresses frustration with how being in the hospital could cost him losts of money though agrees insurance covered his previous stay. Continues to deny any alcohol use since 2012. Review of past records notes psych admission at [facility] in 2001 with discharge diagnoses of antisocial PD and alcohol use disorder. Psych liason able to hear information from patient's niece Maria Victoria. Per psych liason note from 07/12/22: "Spoke with patient's niece, Maria Victoria. Patient information was not provided at this time. Maria Victoria reports patient lived with his mother and was her primary caregiver up until she in December. Maria Victoria reports "his mental health declined when my gram ". Patient remained living in Mother's home and was told he was unable to continuing living there. He did not have much contact with other family until he was admitted to [facility] in beginning of June; patient was found crawling on the floor naked and was taken for medical treatment. Maria Victoria is unsure if the patient called 911. While hospitalized in [place] patient felt he was in [place] and was extremely disoriented and confused. He became combative and was refusing most interventions, ultimately was discharged ~ 1 week ago AMA. Maria Victoria provided transportation and paid for a Hotel. She spoke with patient daily but had not seen him until the day he was admitted to [facility]. Maria Victoria does not recall if the patient had ever been diagnosed with a psychiatric disorder but reports "he has always been on drugs. He went to rehab and he has been to skilled nursing. I have never known him to be sane, my whole life. He has always been crazy. Now he can't care for his basic needs."" Physical Exam Psychiatric Orientation: alert and oriented x 3 (thought month was Sept but otherwise fully oriented) Apperance: + disheveled; + inappropriately dressed (paper scrubs, ripped the top so hanging off his shoulder) Eye Contact: good eye contact Motor Behavior: no abnormal motor movements Speech: + abnormal rate/rhythm/volume of speech (slightly slurred at times, some difficulty with articulation) Affect: + irritable affect Mood: + irritable mood Thought Process: + circumstantial thought process and + looseness of associations Thought Content: + paranoid (possible, thinks infection on MRI may be "false" as way of "getting money") and reality based without delusions Suicidal Thoughts: denies suicidal thoughts (denies with me, made brief statement to hospitalist earlier when frustrated) Homicidal Thoughts: denies homicidal thoughts Hallucinations: no auditory hallucinations and no visual hallucinations Cognition: remote memory grossly intact and language grossly intact; + recent memory not intact and + attention not intact Estimated Intelligence: consistent with education level Insight: + severely impaired insight Judgement: + impaired judgement Vital Signs (Past 24 Hours) Last Vital Signs Temp 37.0 C 07/12/22 07:00 Pulse 87 07/12/22 07:00 Resp 20 07/12/22 07:00 BP 149/70 H 07/12/22 07:00 Pulse Ox 97 07/12/22 07:00 O2 Del Method 07/12/22 07:00 Results & Data ([facility]) Laboratory Results Laboratory Results - last 24 hr 07/11/22 07/11/22 07/11/22 14:55 14:55 14:55 WBC Cancelled RBC Cancelled Hgb Cancelled Hct Cancelled MCV Cancelled MCH Cancelled MCHC Cancelled RDW Std Deviation Cancelled RDW Coeff of Adele Cancelled Plt Count Cancelled MPV Cancelled Absolute Nucleated RBC Cancelled Nucleated RBC % (auto) Cancelled Platelet Estimate Cancelled Sodium Cancelled Potassium Cancelled Chloride Cancelled Carbon Dioxide Cancelled Anion Gap Cancelled BUN Cancelled Creatinine Cancelled Est Cr Clr Drug Dosing Cancelled Est GFR ( Amer) Cancelled Est GFR (Non-Af Amer) Cancelled BUN/Creatinine Ratio Cancelled Glucose Cancelled Calcium Cancelled Magnesium Iron TIBC Unsaturated IBC Transferrin % Sat Ferritin Total Bilirubin Cancelled Direct Bilirubin AST Cancelled ALT Cancelled Alkaline Phosphatase Cancelled Troponin I High Sens Cancelled C-Reactive Protein Total Protein Cancelled Albumin Cancelled Globulin Cancelled Albumin/Globulin Ratio Cancelled Vitamin B12 Folate Procalcitonin 12.38 H 07/12/22 07/12/22 07/12/22 08:28 08:28 08:28 WBC RBC Hgb Hct MCV MCH MCHC RDW Std Deviation RDW Coeff of Adele Plt Count MPV Absolute Nucleated RBC Nucleated RBC % (auto) Platelet Estimate Sodium Potassium Chloride Carbon Dioxide Anion Gap BUN Creatinine Est Cr Clr Drug Dosing Est GFR ( Amer) Est GFR (Non-Af Amer) BUN/Creatinine Ratio Glucose Calcium Magnesium Iron 16 L TIBC 264 Unsaturated IBC 248 Transferrin % Sat 6 L Ferritin 125.4 Total Bilirubin Direct Bilirubin AST ALT Alkaline Phosphatase Troponin I High Sens C-Reactive Protein 2.54 H Total Protein Albumin Globulin Albumin/Globulin Ratio Vitamin B12 1306 H Folate > 22.30 Procalcitonin 25.06 H 07/12/22 07/12/22 07/12/22 08:29 08:29 08:29 WBC 9.07 RBC 3.31 L Hgb 9.0 L Hct 27.1 L MCV 81.9 MCH 27.2 MCHC 33.2 RDW Std Deviation 43.1 RDW Coeff of Adele 14.5 Plt Count 492 H MPV 8.4 L Absolute Nucleated RBC Nucleated RBC % (auto) Platelet Estimate Sodium 136 Potassium 3.1 L Chloride 108 H Carbon Dioxide 22 Anion Gap 6 BUN 19 Creatinine 0.78 D Est Cr Clr Drug Dosing 84.3 Est GFR ( Amer) 111.3 Est GFR (Non-Af Amer) 96.1 BUN/Creatinine Ratio 24.4 H Glucose 141 H Calcium 8.5 Magnesium 1.7 Iron TIBC Unsaturated IBC Transferrin % Sat Ferritin Total Bilirubin 0.2 Direct Bilirubin 0.1 AST 134 H ALT 154 H Alkaline Phosphatase 118 H Troponin I High Sens C-Reactive Protein Total Protein 5.1 L D Albumin 2.9 L Globulin Albumin/Globulin Ratio Vitamin B12 Folate Procalcitonin Current Inpatient Medications Current Inpatient Medications: Current Inpatient Medications Acetaminophen (Acetaminophen 325 Mg Tab) 650 mg PO Q4H PRN PRN Reason: pain/fever Stop: 08/10/22 04:24 Cyanocobalamin (Cyanocobalamin 1000 Mcg/Ml Vial) 1,000 mcg IM QAM CHIARA Stop: 08/11/22 08:59 Last Admin: 07/12/22 09:24 Dose: 1,000 mcg Cyclobenzaprine HCl (Cyclobenzaprine Hcl 10 Mg Tab) 10 mg PO BID PRN PRN Reason: muscle spasm Stop: 08/10/22 04:24 Last Admin: 07/12/22 04:17 Dose: 10 mg Enoxaparin Sodium (Enoxaparin Inj 40 Mg/0.4 Ml Syr) 40 mg SQ Q24H [facility] Stop: 08/10/22 05:59 Last Admin: 07/12/22 06:16 Dose: 40 mg Thiamine HCl 100 mg/ Syringe 10 mls @ 2 mls/min IV QAM [facility] Stop: 08/11/22 08:59 Last Admin: 07/12/22 09:23 Dose: 2 mls/min Folic Acid 1 mg/ Syringe 10 mls @ 5 mls/min IV QAM [facility] Stop: 08/11/22 08:59 Last Admin: 07/12/22 09:23 Dose: 5 mls/min Aztreonam 2,000 mg/ Dextrose 110 mls @ 110 mls/hr IV Q8H [facility]; Protocol Stop: 08/22/22 18:59 Last Infusion: 07/12/22 04:28 Dose: Infused Vancomycin HCl 750 mg/ Sodium (Chloride) 265 mls @ 200 mls/hr IV Q12H [facility] Stop: 08/23/22 05:59 Last Infusion: 07/12/22 07:52 Dose: Infused Magnesium Sulfate/Dextrose (Magnesium Sulfate / D5w) 1 gm in 100 mls @ 50 mls/hr IV ONE ONE Stop: 07/12/22 13:00 Last Admin: 07/12/22 11:16 Dose: 50 mls/hr Lorazepam (Lorazepam 1 Mg Tab) 1 mg PO ONE PRN; Protocol PRN Reason: EtoH Withdrawal AWSS 6,7,8,9,10 Miscellaneous Information (Vancomycin Consult Active) 1 each N/A UD PRN PRN Reason: Consult Stop: 08/10/22 18:02 Naproxen (Naproxen 250 Mg Tab) 500 mg PO TID PRN PRN Reason: pain Last Admin: 07/12/22 09:24 Dose: 500 mg Ondansetron HCl (Ondansetron Inj 2 Mg/Ml 2 Ml Vial) 4 mg IV Q6H PRN PRN Reason: Nausea Stop: 08/10/22 04:24 Tramadol HCl (Tramadol Hcl 50 Mg Tablet) 50 mg PO Q6H PRN PRN Reason: pain, moderate Stop: 08/10/22 04:24 Last Admin: 07/12/22 05:12 Dose: 50 mg Trazodone HCl (Trazodone Hcl 50 Mg Tab) 50 mg PO [facility] Stop: 08/10/22 20:59 Last Admin: 07/11/22 21:09 Dose: 50 mg
--- NOTE | 2022-07-12 13:20 | Infectious Disease Consult ---
Date of Consultation July 12, 2022 Assessment & Plan (1) Psoas abscess: Plan #b/l psoas abscess -noted on MRI L-spine 07/12- R abscess 2.2x1.6, L abscess 1.1 cm -in setting of recently diagnosed discitis/osteo L1-L2 with b/l psoas abscess- transferred to 06/01 for psoas drainage. Reportedly cultures were negative and pt was to complete vanco/aztreonam until 07/14, however he left AMA on 07/05/22. 06/25 CT a/p showed b/l psoas collections measured approx 1.9 cm. Of note, pt with hardware L2-S1 -pt now readmitted due to concern of his niece that he is unable to care for himself -leukocytosis noted on presentation, positive urine drug screen for multiple substances -no fever or hypotension -07/11 Bcxs NGTD, 07/12 Bcx pending -pt started empirically on aztreonam/vancomycin #substance use #encephalopathy -seen by psychiatry- appears pt is not considered competent to make medical decisions at this time Rec: Pt with persistent b/l psoas abscesses on MRI- increased in size on R from prior CT on 06/25. Do not think antibiotics alone will be adequate management of pt's infection. Pt should have IR-guided drainage of abscesses both for help with resolution of infection and for cultures. Reportedly cultures at [facility] during recent admission were no growth- possibly due to prior empiric antibiotics x 48 hours. Pt noted to have hardware in spine, further increasing importance of adequate interventional or surgical intervention and ta rgeted antibiotic selection. Would hold empiric antibiotics at this time unless pt develops signs/sxs of clinical instability until IR-guided drainage performed. F/u blood cxs. Discussed with Dr. Beavers. Consultation Information This patient recommendation is based on a telemedicine consult request which was completed asynchronously through chart review and information provided by the primary physician. The patient was not seen or examined today. The evaluation is consultative in nature and all patient care and treatment decisions can either be accepted or rejected by the patient's primary hospital-based treating physician using their own independent medical judgment for their patient. 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 (Phone Number For Physician Use Only) Time Spent Reviewing Chart: 31+ minutes History of Present Illness Attending Physician: Ana Brewer MD History of Present Illness ID consult requested for recent epidural abscess/discitis in this 62-year-old male, past medical history HFpEF, hypertension, osteoarthritis, status post right TKR, multiple back surgeries, reportedly most recent was removal of prior posterior instrumentation from L3-S1 with repeat posterior spinal fusion at L2- L3 and L3-L4 in 2019 per recent NS consult at [place], who was brought into the ED on 07/11/2022 by EMS on a 302 petition by his niece. Patient had been found unkempt and altered in a hotel. His niece was concerned that he was not taking care of himself. In the ED, temperature was 37, heart rate 91, respiratory rate 18, pulse 101, blood pressure 130/84, pulse ox 99% on room air. Admission labs significant for WBC 16.52, 79% neutrophils, hemoglobin 11.3, platelets 732, creatinine 1.28, la ctate 1.4, UA negative for pyuria, urine tox screen positive for amphetamine, MDMA, benzos and cocaine. CT head and chest x-ray with no acute findings. 07/10/22 QTc 534 Patient was started on vancomycin and aztreonam on 07/11. 07/11 blood cultures are no growth to date. 07/12 blood cultures are pending. 07/12 MRI lumbar spine with and without contrast shows finding consistent with L1-L2 discitis and osteomyelitis. Per report, " The abscesses within the bilateral psoas muscles have significantly decreased in size since MRI of May 31, 2022. Right psoas fluid collection now measures 2.2 x 1.6 cm. It previously measured 3.9 x 2.6 cm. A left psoas fluid collection measures 1.1 cm. It previously measured 1.9 cm. These collections contain T2 hypointense material. No new fluid collections are present. " Upon review of [facility] notes in EMR and scanned H&P, NS consult and discharge summary from [place] scanned into this EMR, Patient had been admitted to [facility] 05/31/22 with several days of worsening lower back pain, weakness and inability to care for himself at home. Per EMS, house was disheveled and patient was nakedcrawling around and acting bizarrely. At [facility], he was noted to have WBC 21, CK9 100s, normal lactate, urine tox positive for opiates and MDMA. CT abdomen pelvis and MRI L-spine showed evidence of discitis/osteomyelitis at L1-L2, bilateral psoas abscess, and possible tiny epidural abscess at L1. Patient was noted to have pedicle screws and rods from L2-S1. Spinal surgery recommended transfer to tertiary center and patient was started on daptomycin and cefepime. Patient had been transferred from [facility] to [facility] on 06/01/2022. He was seen by neurosurgery who did not think surgical intervention needed. He was upgraded to the ICU at [place] due to persistent agitation and restlessness and concern for withdrawal. He underwent IR guided psoas abscess drainage with right-sided drain placement on 06/02. A TTE on 06/07/2022 was technically difficult but showed normal EF and normal valves. 06/14 MRI spine showed extensive postsurgical changes of lumbosacral spine with evidence of paraspinal enhancement and bilateral abscesses with likely component of osteomyelitis at L1. On 06/18 exchange of right sided drain was requested due to minimal output/increased collection. 06/25 CT abdomen pelvis with contrast showed bilateral psoas collections much improved measuring approximately 1.9 cm. Per discharge summary from [facility], patient pulled his PICC line 07/02 as he believed he is going home and did not need antibiotics. He remained delusional but psychiatry thought patient had insight on his illness and understood consequences had capacity to leave AMA. Addiction medicine had signed off as patient was not interested in their help. It appears that patient was continued on vancomycin and aztreonam throughout his admission at [facility]. He had been on daptomycin from 05/31-06/01 which was discontinued due to elevated CPK. ID had recommended antibiotics through 07/14 and repeat MRI after completion of antibiotics. It appears patient left AMA on 07/05/2022. Culture results are not scanned into the EMR but per verbal report in discussion with primary team, all cultures at [facility] were no growth. Allergies Allergy/AdvReac Type Severity Reaction Status Date / Time gabapentin Allergy Severe SHORT OF Verified 07/11/22 01:10 BREATH cat dander Allergy Intermediate itchy Verified 07/11/22 01:10 eyes, sneezing codeine AdvReac Intermediate GI upset Verified 07/11/22 01:10 Home Medications Medication Instructions Recorded Confirmed Type hydrochlorothiazide 25 mg tablet 25 mg PO DAILY #90 tabs 01/29/22 07/11/22 Rx cyclobenzaprine 10 mg tablet 10 mg PO BID PRN muscle spasm #60 03/13/22 07/11/22 Rx tabs trazodone 50 mg tablet 50 mg PO HS #30 tabs 04/10/22 07/11/22 Rx naproxen sodium 550 mg tablet 550 mg PO TID PRN pain #90 tabs 05/11/22 07/11/22 Rx tramadol 50 mg tablet 50 mg PO .Q4-6H PRN pain, moderate 07/10/22 07/11/22 Rx #35 tabs Patient History Medical History Blood loss anemia Diastolic dysfunction Hyperglycemia Hypertension LVH (left ventricular hypertrophy) LVH (left ventricular hypertrophy) severe Obesity Osteoarthritis Polysubstance use disorder Rib fracture left sided, remotely, healed without intervention- does have residual pain over area Rib pain on left side Surgical History History of arthroscopy of shoulder left History of back surgery x5 total History of knee replacement right S/P TKR (total knee replacement) Family History Denies family history of Ovarian cancer Prostate cancer Myocardial infarction Breast cancer Colorectal cancer Social History Smoking Status: Former smoker Tobacco Type: Cigarettes Second Hand Exposure: No; Hx Alcohol Use: Yes Hx Substance Use: Yes Prescribed Medications: Marijuana Last Used Substance Other:: medical marijuana Preferred Language: Portuguese Communication Ability: Effective Engineering Executive Required: No Beliefs That Will Affect Care: None marital status: Single Current Living Situation: Alone and Homeless Current Living Situation Comment: lives with mother current occupational status: unemployed Feels Safe at Home: Yes Dental Care, Regularly: No Physical Activity Frequency: Does not Exercise Seatbelt Use: always Assistive Devices: Walker Results & Data ([facility]) Vital Signs (Past 12 Hours) Vital Signs Temp Pulse Resp BP BP Pulse Ox Pulse Ox 07/12/22 07:00 37.0 C 87 20 149/70 H 97 07/12/22 04:24 98 07/12/22 04:20 37 C 86 16 133/70 98 O2 Del Method O2 Del Method 07/12/22 07:00 Room Air 07/12/22 04:24 Room Air 07/12/22 04:20 Room Air Laboratory Results 07/12/22 08:25 Aerobic Blood Culture - Pending Blood Anaerobic Blood Culture - Pending 07/12/22 08:30 Aerobic Blood Culture - Pending Blood Anaerobic Blood Culture - Pending 07/11/22 00:23 Aerobic Blood Culture - Preliminary Blood No growth in Aerobic bottle after 24 hours. Anaerobic Blood Culture - Preliminary No growth in Anaerobic bottle after 24 hours. 07/12/22 07/12/22 07/12/22 08:29 08:29 08:29 WBC 9.07 RBC 3.31 L Hgb 9.0 L Hct 27.1 L MCV 81.9 MCH 27.2 MCHC 33.2 RDW Std Deviation 43.1 RDW Coeff of Adele 14.5 Plt Count 492 H MPV 8.4 L Absolute Nucleated RBC Nucleated RBC % (auto) Platelet Estimate Sodium 136 Potassium 3.1 L Chloride 108 H Carbon Dioxide 22 Anion Gap 6 BUN 19 Creatinine 0.78 D Est Cr Clr Drug Dosing 84.3 Est GFR ( Amer) 111.3 Est GFR (Non-Af Amer) 96.1 BUN/Creatinine Ratio 24.4 H Glucose 141 H Calcium 8.5 Magnesium 1.7 Iron TIBC Unsaturated IBC Transferrin % Sat Ferritin Total Bilirubin 0.2 Direct Bilirubin 0.1 AST 134 H ALT 154 H Alkaline Phosphatase 118 H Troponin I High Sens C-Reactive Protein Total Protein 5.1 L D Albumin 2.9 L Globulin Albumin/Globulin Ratio Vitamin B12 Folate Procalcitonin 07/12/22 07/12/22 07/12/22 08:28 08:28 08:28 WBC RBC Hgb Hct MCV MCH MCHC RDW Std Deviation RDW Coeff of Adele Plt Count MPV Absolute Nucleated RBC Nucleated RBC % (auto) Platelet Estimate Sodium Potassium Chloride Carbon Dioxide Anion Gap BUN Creatinine Est Cr Clr Drug Dosing Est GFR ( Amer) Est GFR (Non-Af Amer) BUN/Creatinine Ratio Glucose Calcium Magnesium Iron 16 L TIBC 264 Unsaturated IBC 248 Transferrin % Sat 6 L Ferritin 125.4 Total Bilirubin Direct Bilirubin AST ALT Alkaline Phosphatase Troponin I High Sens C-Reactive Protein 2.54 H Total Protein Albumin Globulin Albumin/Globulin Ratio Vitamin B12 1306 H Folate > 22.30 Procalcitonin 25.06 H 07/11/22 07/11/22 07/11/22 14:55 14:55 14:55 WBC Cancelled RBC Cancelled Hgb Cancelled Hct Cancelled MCV Cancelled MCH Cancelled MCHC Cancelled RDW Std Deviation Cancelled RDW Coeff of Adele Cancelled Plt Count Cancelled MPV Cancelled Absolute Nucleated RBC Cancelled Nucleated RBC % (auto) Cancelled Platelet Estimate Cancelled Sodium Cancelled Potassium Cancelled Chloride Cancelled Carbon Dioxide Cancelled Anion Gap Cancelled BUN Cancelled Creatinine Cancelled Est Cr Clr Drug Dosing Cancelled Est GFR ( Amer) Cancelled Est GFR (Non-Af Amer) Cancelled BUN/Creatinine Ratio Cancelled Glucose Cancelled Calcium Cancelled Magnesium Iron TIBC Unsaturated IBC Transferrin % Sat Ferritin Total Bilirubin Cancelled Direct Bilirubin AST Cancelled ALT Cancelled Alkaline Phosphatase Cancelled Troponin I High Sens Cancelled C-Reactive Protein Total Protein Cancelled Albumin Cancelled Globulin Cancelled Albumin/Globulin Ratio Cancelled Vitamin B12 Folate Procalcitonin 12.38 H Diagnostic Findings Chest X-Ray 07/10/22 22:41 XR chest 1V portable HISTORY: 62 years-old Male AMS, confusion acutely altered mental status. COMPARISON: Chest radiograph 05/31/2022 TECHNIQUE: Semierect AP view of the chest FINDINGS: Cardiac silhouette is upper limits of normal in size. No pneumothorax, pleural effusion, airspace consolidation or overt pulmonary edema. Degenerative changes of the shoulders and spine. Healed chronic left-sided rib fractures. The patient is rotated towards the left. IMPRESSION: No acute process. ACT 112: Negative or not required by law. The above report was generated using voice recognition software. It may contain grammatical, syntax or spelling errors. Electronically signed by: Eliazar Gonzalez M.D. 07/11/2022 6:[address] 07/11/22 01:14 CT SCAN OF THE BRAIN WITHOUT IV CONTRAST CLINICAL HISTORY: Change in mental status. COMPARISON STUDY: No priors. TECHNIQUE: Unenhanced axial CT scan of the brain is performed from the vertex to the skull base. A dose lowering technique was utilized adhering to the principles of ALARA. CT DOSE: 614.27 mGy.cm FINDINGS: Brain parenchyma: There is age-related involutional change noting minimal microangiopathic disease. There is no hemorrhage, mass effect, or evidence of acute territorial ischemia by CT criteria. Weeks-white matter differentiation is preserved. No extra-axial fluid collection is seen. Ventricles, sulci, cisterns: Prominent secondary to involutional change. Intracranial vasculature: There is atherosclerotic calcification of the cavernous carotid arteries. Calvarium: Unremarkable. Sinuses and mastoids: The visualized paranasal sinuses are clear. The mastoid air cells are well pneumatized. Orbits: The bony orbits are grossly intact. IMPRESSION: There is no hemorrhage, mass effect, or evidence of acute territorial ischemia by CT criteria. ACT 112: Negative or not required by law. Electronically signed by: Arian Mendoza M.D. 07/11/2022 7:03 AM Lumbar Spine MRI 07/12/22 08:59 MRI OF THE LUMBAR SPINE WITH AND WITHOUT CONTRAST CLINICAL HISTORY: back pain, recent psoas abscess drainage COMPARISON STUDY: Lumbar spine MRI May 31, 2022. Lumbar spine radiographs April 25, 2022. Lumbar spine CT March 13, 2021. TECHNIQUE: Utilizing a 1.5 Jena magnet and dedicated coil, multiplanar, multiecho imaging of the lumbar spine was performed before and after uneventful IV administration of 7 mL of Gadavist. FINDINGS: For purposes of numbering on this exam, the L5-S1 disc space is assigned to axial image 27 of 30. There are postoperative findings consistent with posterior decompression with pedicle screw fusion from L2 through S1. Fluid signal within the L1 vertebral body and L1-L2 disc space is again noted. This was shown on prior exam. There is diminished T1 marrow signal within the L1 and L2 vertebral bodies. This is consistent with discitis/osteomyelitis which was shown on previo us MRI. L2-L3 discectomy is noted as well as L4-L5 and L5-S1 discectomies. This exam is compromised by susceptibility artifact from the hardware. Severe central canal stenosis at L1-L2 is unchanged. No intracanalicular fluid collection is identified. Increased T2 signal within the paraspinal musculature is unchanged. The abscesses within the bilateral psoas muscles have significantly decreased in size since MRI of May 31, 2022. Right psoas fluid collection now measures 2.2 x 1.6 cm. It previously measured 3.9 x 2.6 cm. A left psoas fluid collection measures 1.1 cm. It previously measured 1.9 cm. These collections contain T2 hypointense material. No new fluid collections are present. The bladder is distended. Left SI joint fusion is partially imaged. IMPRESSION: 1. Significant decrease in size of the bilateral psoas intramuscular abscesses since MRI of May 31, 2022. No new fluid collections. 2. Findings consistent with L1-L2 discitis and osteomyelitis which was shown on MRI of May 31, 2022. No epidural fluid collection identified. Exam compromised by susceptibility artifact from the hardware. 3. No change in severe central canal stenosis at L1-L2. 4. Postoperative findings within the lumbar spine, as above. 5. Distended bladder. ACT 112: Negative or not required by law. Electronically signed by: Christophe Cormier M.D. 07/12/2022 11:09 AM
[2022-07-12] MEDS: LORazepam 0.5 MG TAB PO PRN (14:12)
[2022-07-12] MEDS: PANTOprazole 40 MG in SYRINGE 0 ML IV SCH (15:28)
[2022-07-12] MEDS ORDERED: THIAMINE HCL 200 MG in SYRINGE 9 ML IV SCH (21:00)
[2022-07-12] MEDS: THIAMINE HCL 200 MG in SODIUM CHLORIDE 0.9% 50 ML IV SCH (21:34)
[2022-07-12] MEDS: traZODone HCL 50 MG TAB PO SCH (21:40)
[2022-07-13] MEDS: traMADol HCL 50 MG TABLET PO PRN ×3 (03:56→22:37)
[2022-07-13] MEDS ORDERED: VANCOMYCIN LEVEL ONE (05:30)
[2022-07-13] MEDS: CYCLOBENZAPRINE HCL 10 MG TAB PO PRN (05:55)
[2022-07-13] MEDS: ENOXAPARIN INJ 40 MG/0.4 ML SYR SQ SCH (05:55)
[2022-07-13 06:49] LABS: Basophils # (auto) 0.03 K/uL (0-0.2); Basophils % (auto) 0.4 %; Hematocrit (blood only) 26.9 % (40.1-51.0); Hemoglobin 8.6 g/dl (14.0-18.0); Immature Granulocytes # (auto) 0.03 K/uL (0.00-0.02); Immature Granulocytes % (auto) 0.4 %; Lymphocytes % (auto) 13.1 %; Mean Corpuscular Hemoglobin 26.9 pg (25.0-34.0); Mean Corpuscular Volume 84.1 fL (80.0-100.0); Mean Platelet Volume 8.3 fL (9.4-12.4); Monocytes # (auto) 0.52 K/uL (0.24-0.82); Monocytes % (auto) 6.8 %; Neutrophils # (auto) 6.03 K/uL (1.4-6.5); Neutrophils % (auto) 79.3 %; Platelet Count 428 K/uL (130-400); RDW Coefficient of Variation 14.5 % (11.5-14.5); RDW Standard Deviation 44.4 fL (36.4-46.3); White Blood Count 7.61 K/ul (4.8-10.8)
[2022-07-13 07:10] LABS: Albumin Globulin Ratio 1.3 (0.9-2); Albumin Level 2.8 gm/dl (3.4-5.0); BUN Creatinine Ratio 22.2 (10-20); Bilirubin,Total 0.2 mg/dl (0.2-1.0); C Reactive Protein 3.4 mg/dl (0-0.5); Calcium 8.3 mg/dl (8.5-10.1); Creatinine Clr Calc Pharmacy 104.4 ml/min; Est GFR (African American) 121.6 ml/min; Est GFR (Non-African American) 104.9 ml/min; Globulin 2.2 gm/dl (2.5-4.0); Magnesium 1.8 mg/dl (1.7-2.4); Potassium 3.3 mmol/L (3.5-5.1)
[2022-07-13] MEDS ORDERED: POTASSIUM CHLORIDE CRTAB 20 MEQ TABCR PO STA (09:01)
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
[2022-07-13] MEDS: FERROUS SULFATE 325 MG TAB PO SCH (09:45)
[2022-07-13] MEDS: DOCUSATE SODIUM/SENNA 50/8.6MG TAB PO SCH (09:45)
[2022-07-13] MEDS: CYANOCOBALAMIN 1000 MCG/ML VIAL IM SCH (09:54)
[2022-07-13] MEDS: LORazepam 0.5 MG TAB PO PRN ×2 (10:00→22:38)
[2022-07-13] MEDS: FOLIC ACID 1 MG in SYRINGE 9.8 ML IV SCH (10:02)
[2022-07-13] MEDS: THIAMINE HCL 200 MG in SODIUM CHLORIDE 0.9% 50 ML IV SCH ×2 (10:14→20:49)
[2022-07-13] MEDS: MAGNESIUM SULFATE / D5W 1 GM/100 ML BAG IV SCH ×2 (10:29→12:17)
[2022-07-13] MEDS: tiZANidine HCL 4 MG TABLET PO PRN ×2 (12:53→20:49)
[2022-07-13] MEDS: PANTOprazole 40 MG in SYRINGE 0 ML IV SCH (12:54)
[2022-07-13] MEDS: DICLOFENAC SOD 1% GEL 100 GM TUBE EXT SCH ×3 (12:55→20:50)
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
--- NOTE | 2022-07-13 15:18 | Psychiatric Progress Note ---
Date of Service July 13, 2022 Impression / Recommendations Impression 62 yo old with history of polysubstance use, recently admitted for >1 month at [facility] for encephalopathy, alcohol use, osteomyelitis re-presents with failure of self-care and confusion on 302 warrant. Diagnostically suspect encephalopathy likely a combination of substance-induced, substance-withdrawal and from lack of po intake and lack of medication adherence for recent infection. Will continue to monitor but suspect 302 warrant will need to be dispositioned as seems there is no primary psychiatric condition underlying his presentation (substance use disorders are not allowable conditions for involunta ry psychiatric treatment in [facility]) and no current evidence of acute psychosis, depression nor maryellen. He definitely doesn't have decision making capacity to leave AMA at this time as he doesn't know what he's being treated for, risks of leaving, benefits of staying or even basic knowledge of his recent and current treatment. He was fully oriented during my assessment and while having some odd behaviors, such as not wearing clothes, he has rational explanations for his decisions (i.e. doesn't like that clothes are uncomfortable, wasn't eating to lose weight). Suspect substance use of meth and cocaine played significant role in his lack of appetite and lack of adherence with medications as well. Unclear if he has been using alcohol, no current signs of nystagmus, changes in EOMs or confabulations but remains concern with alcohol use history for Wernicke encephalopathy. Did not observe gait as he cited pain with moving from bed. Wouldn't start an antipsychotic at this point as his QTc is >500ms. In case of behavioral emergency would use olanzapine 2.5mg IM and he'd need to be on telemetry (zyprexa seemed to work well at [place] and his QTc was prolonged there too). Acute and chronic risk of self-harm are elevated given his lack of insight, poor self-care and risk of decompensation or due to inability to care for his basic needs of nutrition and medical treatment. 07/12/22: Decision making capacity assessment: regarding decision making capacity about leaving AMA, refusing recommended treatment of transfer to facility that has intervention radiology to aspirate and drain his abscess. Criterion: Patient Task: 1. Communicates a choice. Patient able to clearly indicate preferred treatment option in a clear and consistent manner: Yes states his desire to be discharged home but this is inconsistent. Notably stated that if insurance covers his medical admission (his main concern is cost) then he would be more agreeable to recommended treatment. Per discussion with hospitalist both that provider and myself re-iterated to him that current treatments are deemed medically necessary and insurance is covering this which he could not recall having discussed earlier today. He does state "if it's paid for I'll do it, I just won't be happy about it". 2.Understands information provided. Patient understands his condition and treatment options: NO. He can state that he has a "bone infection" but is unable to describe the extent of this (that he has an abscess) nor can he describe the recommended treatment of aspiration which the hospitalist provider discussed with him. He can state that he is being given "two IV antibiotics" and states "and maybe physical therapy at some point". 3. Appreciates consequences. Patient shows appropriately nuanced appreciation for the risks & benefits associated with available treatment options, including no treatment: NO. He cannot state any risks to leaving the hospital without treatment stating the risks are "none because I have family support and was told [facility] has services of people who can check on me". He also cannot state any benefits to continuing to receive treatment stating "not many because the downside is so much worse and I'll feel better in two weeks anyway". 4. Manipulates relevant information Patient able to rationally weigh risks & benefits, as well as offer reasons for his decision: NO. He cannot identify risks/benefits even after I re-iterate risks hospitalist discussed with him regarding sepsis or if untreated. He has also shown he struggles to follow-up with outpatient care and cannot speak to ways he would identify worsening of his condition if at home or how he would get additional help. States he would know if he had a blood infection because "I'd get scratch buitrago on my body". Based on [facility] evaluation above he is not deemed to have decision making capacity to leave [facility] nor to refuse transfer for ongoing medication treatment for his infection. He has no ability to cite any risks nor benefits of treatment, no awareness of severity of his condition nor risk for sepsis or if untreated. Will keep [address] for now given ongoing concerns about lack of self-care and statement of SI earlier to hospitalist, though now denying again and stating done out of frustration. While he does not appear to have primary psychiatric condition collateral information notable for concern for significant worsening of self-care and history of bizarre behavior. 07/13/22: Continues to have lack of decision making capacity regarding need for transfer for ongoing medical treatment as continues to be unable to understand information provided, appreciate consequences nor manipulate relevant informatio n. Remains on 302 warrant given severe neglect for self-care as described previously and ongoing concern for paranoia about medical treatment and MRI scans being "a lie". (1) Encephalopathy: (2) Polysubstance use disorder: (3) Paranoia: Plan 07/13/22: Continues to lack decision making capacity regarding medical decisions about transfer for treatment of abscess and for necessary medical interventions. Discussed with hospitalist providers. 07/12/22: Continues to lack decision making capacity regarding medical decisions about transfer for treatment of abscess. Discussed at length with hospitalist providers throughout the day. 07/11/22: -1-on-1 as on 302 warrant, cannot leave AMA and lacks decision making capacity to do so -Would start AWSS with thiamine and folic acid -Continue medical workup to rule out and treat any underlying causes contributing to potential delirium, avoid or limit use of deliriogenic medications (benzodiazepines, opioids, anticholinergics) -Continue with delirium prevention measures: raising blinds during the day, closing at night, frequent re-orientation, contact with family/friends, explaining procedures/nursing care measures prior to physical contact, correct any hearing and visual impairments -For behavioral emergency: olanzapine 2.5 mg IM x 1 (DO NOT exceed 10mg per 24 hours, NEVER co-administer with IM or IV benzodiazepines). Would need to be on telemetry if this was required given prolonged QTc -If he allows [facility] for sister/niece psych liason will attempt to gather additional background on psych hx, family hx Risk Factors Assessment Do You Have Access To A Gun?: No Interval History Identifying Information 62 yo man, currently living in hotel as he is homeless, with history of polysubstance use, depression and history of back surgeries, recently admitted to [facility] from 05/31/22 to 07/05/22 for acute encephalopathy, alcohol withdrawal, and osteomyelitis of lumbar spine requiring IV antibiotics re- presented to the ED on box A 302 warrant for failure of self-care. Chief Complaint "I didn't sleep much". Subjective Subjective Patient was seen & assessed and interval progress reviewed. Laying in bed this morning slightly irritable but cooperative with answering questions. States he did not sleep well and when asked why attributes this to being in the hospital continues to show severely impaired insight and unable to describe what he is being treated for, benefits of treatment, risks of refusing treatment, alternatives or to reiterate discussions that he has had multiple times with medical providers. Rather states again "why am I even here, I feel fine". Physical Exam Psychiatric Orientation: alert and oriented x 3 Apperance: + disheveled; + inappropriately dressed (only wearing scrub bottoms) Eye Contact: + fair eye contact Motor Behavior: no abnormal motor movements Speech: + abnormal rate/rhythm/volume of speech (slightly slurred at times, some difficulty with articulation) Affect: + irritable affect Mood: + irritable mood; no depressed mood and no anxious mood Thought Process: + circumstantial thought process and + looseness of associations Thought Content: + paranoid (possible, thinks infection on MRI may be "false" as way of "getting money") Suicidal Thoughts: denies suicidal thoughts Homicidal Thoughts: denies homicidal thoughts Hallucinations: no auditory hallucinations and no visual hallucinations Cognition: remote memory grossly intact and language grossly intact; + recent memory not intact and + attention not intact Estimated Intelligence: consistent with education level Insight: + severely impaired insight Judgement: + impaired judgement Vital Signs (Past 24 Hours) Last Vital Signs Temp 37.1 C 07/13/22 14:54 Pulse 73 07/13/22 14:54 Resp 16 07/13/22 14:54 BP 158/74 H 07/13/22 14:54 Pulse Ox 98 07/13/22 14:54 O2 Del Method 07/13/22 14:54 Results & Data ([facility]) Laboratory Results Laboratory Results - last 24 hr 07/13/22 07/13/22 07/13/22 06:29 06:29 06:29 WBC 7.61 RBC 3.20 L Hgb 8.6 L Hct 26.9 L MCV 84.1 MCH 26.9 MCHC 32.0 RDW Std Deviation 44.4 RDW Coeff of Adele 14.5 Plt Count 428 H MPV 8.3 L Immature Gran % (Auto) 0.4 Neut % (Auto) 79.3 Lymph % (Auto) 13.1 Collin % (Auto) 6.8 Eos % (Auto) 0.0 Baso % (Auto) 0.4 Neut # (Auto) 6.03 Lymph # (Auto) 1.00 L Collin # (Auto) 0.52 Eos # (Auto) 0.00 Baso # (Auto) 0.03 Immature Gran # (Auto) 0.03 H ESR 31 H Sodium 136 Potassium 3.3 L Chloride 109 H Carbon Dioxide 22 Anion Gap 5 BUN 14 Creatinine 0.63 Est Cr Clr Drug Dosing 104.4 Est GFR ( Amer) 121.6 Est GFR (Non-Af Amer) 104.9 BUN/Creatinine Ratio 22.2 H Glucose 154 H Calcium 8.3 L Magnesium 1.8 Total Bilirubin 0.2 AST 226 H ALT 300 H Alkaline Phosphatase 121 H C-Reactive Protein 3.40 H Total Protein 5.0 L Albumin 2.8 L Globulin 2.2 L Albumin/Globulin Ratio 1.3 Procalcitonin 07/13/22 06:29 WBC RBC Hgb Hct MCV MCH MCHC RDW Std Deviation RDW Coeff of Adele Plt Count MPV Immature Gran % (Auto) Neut % (Auto) Lymph % (Auto) Collin % (Auto) Eos % (Auto) Baso % (Auto) Neut # (Auto) Lymph # (Auto) Collin # (Auto) Eos # (Auto) Baso # (Auto) Immature Gran # (Auto) ESR Sodium Potassium Chloride Carbon Dioxide Anion Gap BUN Creatinine Est Cr Clr Drug Dosing Est GFR ( Amer) Est GFR (Non-Af Amer) BUN/Creatinine Ratio Glucose Calcium Magnesium Total Bilirubin AST ALT Alkaline Phosphatase C-Reactive Protein Total Protein Albumin Globulin Albumin/Globulin Ratio Procalcitonin 9.37 H Current Inpatient Medications Current Inpatient Medications: Current Inpatient Medications Acetaminophen (Acetaminophen 325 Mg Tab) 650 mg PO Q4H PRN PRN Reason: pain/fever Stop: 08/10/22 04:24 Cyanocobalamin (Cyanocobalamin 1000 Mcg/Ml Vial) 1,000 mcg IM QAM CHIARA Stop: 08/11/22 08:59 Last Admin: 07/13/22 09:54 Dose: 1,000 mcg Cyclobenzaprine HCl (Cyclobenzaprine Hcl 10 Mg Tab) 10 mg PO BID PRN PRN Reason: muscle spasm Stop: 08/10/22 04:24 Last Admin: 07/13/22 05:55 Dose: 10 mg Diclofenac Sodium (Diclofenac Sod 1% Gel 100 Gm Tube) 2 gm EXT QID [facility]; Protocol Stop: 08/12/22 12:59 Last Admin: 07/13/22 12:55 Dose: 2 gm Enoxaparin Sodium (Enoxaparin Inj 40 Mg/0.4 Ml Syr) 40 mg SQ Q24H [facility] Stop: 08/10/22 05:59 Last Admin: 07/13/22 05:55 Dose: 40 mg Ferrous Sulfate (Ferrous Sulfate 325 Mg Tab) [facility] Stop: 08/12/22 08:59 Last Admin: 07/13/22 09:45 Dose: 325 mg Folic Acid 1 mg/ Syringe 10 mls @ 5 mls/min [facility] Stop: 08/11/22 08:59 Last Admin: 07/13/22 10:02 Dose: 5 mls/min Aztreonam 2,000 mg/ Dextrose 110 mls @ 110 mls/hr IV Q8H [facility]; Protocol Stop: 08/22/22 18:59 Last Infusion: 07/12/22 04:28 Dose: Infused Vancomycin HCl 750 mg/ Sodium (Chloride) 265 mls @ 200 mls/hr IV Q12H [facility] Stop: 08/23/22 05:59 Last Infusion: 07/12/22 07:52 Dose: Infused Pantoprazole Sodium 40 mg/ (Syringe) 10 mls @ 5 mls/min IV DAILY@1100 [facility] Stop: 08/11/22 14:29 Last Admin: 07/13/22 12:54 Dose: 5 mls/min Thiamine HCl 200 mg/ Sodium (Chloride) 52 mls @ 210 mls/hr IV BID [facility] Stop: 08/11/22 20:59 Last Infusion: 07/13/22 10:30 Dose: Infused Lorazepam (Lorazepam 1 Mg Tab) 1 mg PO ONE PRN; Protocol PRN Reason: EtoH Withdrawal AWSS 6,7,8,9,10 Lorazepam (Lorazepam 0.5 Mg Tab) 0.5 mg PO Q4H PRN PRN Reason: Anxiety or agitation Stop: 08/11/22 11:35 Last Admin: 07/13/22 10:00 Dose: 0.5 mg Miscellaneous Information (Vancomycin Consult Active) 1 each N/A UD PRN PRN Reason: Consult Stop: 08/10/22 18:02 Naproxen (Naproxen 250 Mg Tab) 500 mg PO TID PRN PRN Reason: pain Last Admin: 07/12/22 09:24 Dose: 500 mg Ondansetron HCl (Ondansetron Inj 2 Mg/Ml 2 Ml Vial) 4 mg IV Q6H PRN PRN Reason: Nausea Stop: 08/10/22 04:24 Senna/Docusate Sodium (Docusate Sodium/Senna 50/8.6mg Tab) 1 tab PO [facility] Stop: 08/12/22 09:14 Last Admin: 07/13/22 09:45 Dose: Not Given Tizanidine HCl (Tizanidine Hcl 4 Mg Tablet) 2 mg PO TID PRN PRN Reason: muscle spasm Stop: 08/11/22 20:59 Last Admin: 07/13/22 12:53 Dose: 2 mg Tramadol HCl (Tramadol Hcl 50 Mg Tablet) 50 mg PO Q6H PRN PRN Reason: pain, moderate Stop: 08/10/22 04:24 Last Admin: 07/13/22 03:56 Dose: 50 mg Trazodone HCl (Trazodone Hcl 50 Mg Tab) 50 mg PO [facility] Stop: 08/10/22 20:59 Last Admin: 07/12/22 21:40 Dose: 50 mg
--- NOTE | 2022-07-13 15:31 | Infectious Disease Progress Nt ---
Date of Service July 13, 2022 Assessment & Plan (1) Psoas abscess: Plan (1) Psoas abscess: Plan #b/l psoas abscess -noted on MRI L-spine 07/12- R abscess 2.2x1.6, L abscess 1.1 cm, along with L1-L2 discitis/osteomyelitis -in setting of recently diagnosed discitis/osteo L1-L2 with b/l psoas abscess. Details as per ID HPI- in summary, pt had been transferred to [facility] 06/01 for psoas drainage. Reportedly cultures were negative and pt was to co mplete vanco/aztreonam until 07/14, however he left AMA on 07/05/22. 06/25 CT a/p showed b/l psoas collections measured approx 1.9 cm. Of note, pt has had multiple surgeries in past, with hardware placed L2-S1 -pt now readmitted due to concern of his niece that he is unable to care for himself -leukocytosis noted on presentation, positive urine drug screen for multiple substances -however no fever or hypotension -07/11 Bcxs NGTD, 07/12 Bcx NGTD -pt started empirically on aztreonam/vancomycin- held starting 07/12 #substance use #encephalopathy -seen by psychiatry- pt is not considered competent to make medical decisions at this time such as leaving AMA or refusing transfer Rec: Pt with persistent b/l psoas abscesses on MRI- increased in size on R from prior CT on 06/25. Do not think antibiotics alone will be adequate management of pt's infection. Pt should have IR-guided drainage of abscesses both for help with resolution of infection and for cultures. Reportedly cultures at [facility] during recent admission were no growth- pt had received empiric antibiotics x 48 hours beforehand. Pt noted to have hardware in spine, further increasing importance of adequate interventional or surgical intervention and targeted antibiotic selection. Pt may require long-term suppression if hardware retained. Would continue to hold empiric antibiotics at this time-unless pt d evelops signs/sxs of clinical instability- until IR-guided drainage performed in order to increase culture yield. F/u blood cxs. Pt has been accepted for transfer to [facility] when bed available. Discussed with Dr. Beavers. Please page with any questions. ID physician is available over phone on weekend for any questions/concerns. Dr. Zacarias (pager [phone]) is scheduled to take over care of pt on Saturday. Chloe Varela M.D. [facility] [employer] Pager [phone] Admission and Anticipated Discharge Date Admission Date: July 11, 2022 Subjective This patient recommendation is based on a telemedicine consult request which was completed asynchronously through chart review and information provided by the primary physician. The patient was not seen or examined today. The evaluation is consultative in nature and all patient care and treatment decisions can either be accepted or rejected by the patient's primary hospital-based treating physician using their own independent medical judgment for their patient. Pt remains afebrile and HDS. Bcxs remain NGTD, WBC nl. Pt accepted for transfer to [facility] bed per discussion today with primary team. Results & Data ([facility]) Vital Signs (Past 12 Hours) Vital Signs Temp Pulse Resp BP Pulse Ox O2 Del Method 07/13/22 14:54 37.1 C 73 16 158/74 H 98 Room Air 07/13/22 11:04 36.9 C 78 16 168/74 H 99 Room Air 07/13/22 07:15 Room Air 07/13/22 07:18 36.8 C 89 18 148/77 H 98 Room Air 07/13/22 03:52 36.6 C 92 H 16 153/79 H 98 Room Air Laboratory Results 07/13/22 07/13/22 07/13/22 Range/Units 06:29 06:29 06:29 WBC (4.8-10.8) K/ul RBC (4.63-6.08) M/uL Hgb (14.0-18.0) g/dl Hct (40.1-51.0) % MCV (80.0-100.0) fL MCH (25.0-34.0) pg MCHC (32.0-36.0) g/dL RDW Std Deviation (36.4-46.3) fL RDW Coeff of Adele (11.5-14.5) % Plt Count (130-400) K/uL MPV (9.4-12.4) fL Immature Gran % (Auto) % Neut % (Auto) % Lymph % (Auto) % Williams % (Auto) % Eos % (Auto) % Baso % (Auto) % Neut # (Auto) (1.4-6.5) K/uL Lymph # (Auto) (1.2-3.4) K/uL Williams # (Auto) (0.24-0.82) K/uL Eos # (Auto) (0-0.50) K/uL Baso # (Auto) (0-0.2) K/uL Immature Gran # (Auto) (0.00-0.02) K/uL ESR 31 H (0-20) mm/hr Sodium 136 (136-145) mmol/L Potassium 3.3 L (3.5-5.1) mmol/L Chloride 109 H (98-107) mmol/L Carbon Dioxide 22 (21-32) mmol/L Anion Gap 5 (3-11) BUN 14 (6-23) mg/dl Creatinine 0.63 (0.6-1.4) mg/dl Est Cr Clr Drug Dosing 104.4 ml/min Est GFR ( Amer) 121.6 ml/min Est GFR (Non-Af Amer) 104.9 ml/min BUN/Creatinine Ratio 22.2 H (10-20) Glucose 154 H (70-99(Fasting)) mg/dl Calcium 8.3 L (8.5-10.1) mg/dl Magnesium 1.8 (1.7-2.4) mg/dl Total Bilirubin 0.2 (0.2-1.0) mg/dl AST 226 H (13-39) U/L ALT 300 H (7-52) U/L Alkaline Phosphatase 121 H (34-104) U/L C-Reactive Protein 3.40 H (0-0.5) mg/dl Total Protein 5.0 L (6.0-8.3) gm/dl Albumin 2.8 L (3.4-5.0) gm/dl Globulin 2.2 L (2.5-4.0) gm/dl Albumin/Globulin Ratio 1.3 (0.9-2) Procalcitonin 9.37 H (0-0.5) ng/ml 07/13/22 Range/Units 06:29 WBC 7.61 (4.8-10.8) K/ul RBC 3.20 L (4.63-6.08) M/uL Hgb 8.6 L (14.0-18.0) g/dl Hct 26.9 L (40.1-51.0) % MCV 84.1 (80.0-100.0) fL MCH 26.9 (25.0-34.0) pg MCHC 32.0 (32.0-36.0) g/dL RDW Std Deviation 44.4 (36.4-46.3) fL RDW Coeff of Adele 14.5 (11.5-14.5) % Plt Count 428 H (130-400) K/uL MPV 8.3 L (9.4-12.4) fL Immature Gran % (Auto) 0.4 % Neut % (Auto) 79.3 % Lymph % (Auto) 13.1 % Williams % (Auto) 6.8 % Eos % (Auto) 0.0 % Baso % (Auto) 0.4 % Neut # (Auto) 6.03 (1.4-6.5) K/uL Lymph # (Auto) 1.00 L (1.2-3.4) K/uL Williams # (Auto) 0.52 (0.24-0.82) K/uL Eos # (Auto) 0.00 (0-0.50) K/uL Baso # (Auto) 0.03 (0-0.2) K/uL Immature Gran # (Auto) 0.03 H (0.00-0.02) K/uL ESR (0-20) mm/hr Sodium (136-145) mmol/L Potassium (3.5-5.1) mmol/L Chloride (98-107) mmol/L Carbon Dioxide (21-32) mmol/L Anion Gap (3-11) BUN (6-23) mg/dl Creatinine (0.6-1.4) mg/dl Est Cr Clr Drug Dosing ml/min Est GFR ( Amer) ml/min Est GFR (Non-Af Amer) ml/min BUN/Creatinine Ratio (10-20) Glucose (70-99(Fasting)) mg/dl Calcium (8.5-10.1) mg/dl Magnesium (1.7-2.4) mg/dl Total Bilirubin (0.2-1.0) mg/dl AST (13-39) U/L ALT (7-52) U/L Alkaline Phosphatase (34-104) U/L C-Reactive Protein (0-0.5) mg/dl Total Protein (6.0-8.3) gm/dl Albumin (3.4-5.0) gm/dl Globulin (2.5-4.0) gm/dl Albumin/Globulin Ratio (0.9-2) Procalcitonin (0-0.5) ng/ml Diagnostic Findings Microbiology 07/12/22 08:30 Blood Aerobic Blood Culture - Preliminary No growth in Aerobic bottle after 24 hours. 07/12/22 08:30 Blood Anaerobic Blood Culture - Preliminary No growth in Anaerobic bottle after 24 hours. 07/12/22 08:25 Blood Aerobic Blood Culture - Preliminary No growth in Aerobic bottle after 24 hours. 07/12/22 08:25 Blood Anaerobic Blood Culture - Preliminary No growth in Anaerobic bottle after 24 hours. 07/11/22 00:23 Blood Aerobic Blood Culture - Preliminary No growth in Aerobic bottle after 48 hours. 07/11/22 00:23 Blood Anaerobic Blood Culture - Preliminary No growth in Anaerobic bottle after 48 hours.
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
[2022-07-13] MEDS: traZODone HCL 50 MG TAB PO SCH (20:50)
[2022-07-14] MEDS: CYCLOBENZAPRINE HCL 10 MG TAB PO PRN (01:14)
[2022-07-14] MEDS: LORazepam 0.5 MG TAB PO PRN ×2 (04:30→07:49)
[2022-07-14] MEDS: ENOXAPARIN INJ 40 MG/0.4 ML SYR SQ SCH (05:53)
[2022-07-14] MEDS: traMADol HCL 50 MG TABLET PO PRN (05:55)
[2022-07-14 06:50] LABS: Basophils # (auto) 0.04 K/uL (0-0.2); Basophils % (auto) 0.4 %; Hematocrit (blood only) 26.8 % (40.1-51.0); Hemoglobin 8.7 g/dl (14.0-18.0); Immature Granulocytes # (auto) 0.05 K/uL (0.00-0.02); Immature Granulocytes % (auto) 0.5 %; Lymphocytes # (auto) 1.45 K/uL (1.2-3.4); Lymphocytes % (auto) 15.6 %; Mean Corpuscular Hemoglobin 27.2 pg (25.0-34.0); Mean Corpuscular Hgb Conc 32.5 g/dL (32.0-36.0); Mean Corpuscular Volume 83.8 fL (80.0-100.0); Mean Platelet Volume 8.4 fL (9.4-12.4); Monocytes # (auto) 0.65 K/uL (0.24-0.82); Neutrophils # (auto) 7.09 K/uL (1.4-6.5); Neutrophils % (auto) 76.5 %; Platelet Count 441 K/uL (130-400); RDW Coefficient of Variation 14.4 % (11.5-14.5); RDW Standard Deviation 44.1 fL (36.4-46.3); White Blood Count 9.28 K/ul (4.8-10.8)
[2022-07-14 07:29] LABS: Albumin Globulin Ratio 1.2 (0.9-2); BUN Creatinine Ratio 23.2 (10-20); Bilirubin,Total 0.2 mg/dl (0.2-1.0); Calcium 8.7 mg/dl (8.5-10.1); Creatinine Clr Calc Pharmacy 95.3 ml/min; Est GFR (African American) 117.1 ml/min; Globulin 2.5 gm/dl (2.5-4.0); Magnesium 1.8 mg/dl (1.7-2.4); Potassium 4.1 mmol/L (3.5-5.1); Total Protein 5.5 gm/dl (6.0-8.3)
[2022-07-14] MEDS: THIAMINE HCL 200 MG in SODIUM CHLORIDE 0.9% 50 ML IV SCH (07:44)
[2022-07-14] MEDS: DICLOFENAC SOD 1% GEL 100 GM TUBE EXT SCH (07:45)
[2022-07-14] MEDS: CYANOCOBALAMIN 1000 MCG/ML VIAL IM SCH (07:45)
[2022-07-14] MEDS: FOLIC ACID 1 MG in SYRINGE 9.8 ML IV SCH (07:46)
[2022-07-14] MEDS: FERROUS SULFATE 325 MG TAB PO SCH (07:46)
[2022-07-14] MEDS: tiZANidine HCL 4 MG TABLET PO PRN (07:46)
[2022-07-14] MEDS: DOCUSATE SODIUM/SENNA 50/8.6MG TAB PO SCH (07:47)
[2022-07-15 09:14] LABS: 7-Aminoclonaz, Confirm NEGATIVE ng/mL (<25); Amphetamine Urine, Confirm 1460 ng/mL (<250); Cocaine, Urine >15000 ng/mL (<100); Hydro-Alp Ur, GC/MS NEGATIVE ng/mL (<25); Hydroxyethylflurazepam, Conf NEGATIVE ng/mL (<50); Hydroxymidazolam Ur, GC/MS NEGATIVE ng/mL (<50); Hydroxytriazolam NEGATIVE ng/mL (<50); Lorazepam, Ur GC/MS 334 ng/mL (<50); MDA negative; MDEA negative; MDMA (Ecstasy) Urine, Confirm negative; Methamphetamine, Ur Confirm 12400 ng/mL (<250); Nordiazepam, Confirm 121 ng/mL (<50); Oxazepam Ur, GC/MS 369 ng/mL (<50); Temazepam, Confirm 136 ng/mL (<50)
== END 2022-07-14 08:40 | disposition short-term general hospital (02) | DRG 896 ==
LOC: ED 20:21 → EDINP 07-11 03:23 → SUATTDRO 07-11 03:23 → 3E 07-11 04:26

== ENCOUNTER 2022-07-26 12:59 | Observation (INO) ==
[2022-07-26 13:48] LABS: Basophils # (auto) 0.09 K/uL (0-0.2); Basophils % (auto) 0.7 %; Hematocrit (blood only) 29.5 % (40.1-51.0); Hemoglobin 9.7 g/dl (14.0-18.0); Immature Granulocytes # (auto) 0.07 K/uL (0.00-0.02); Immature Granulocytes % (auto) 0.5 %; Lymphocytes # (auto) 2.37 K/uL (1.2-3.4); Lymphocytes % (auto) 17.1 %; Mean Corpuscular Hemoglobin 26.1 pg (25.0-34.0); Mean Corpuscular Hgb Conc 32.9 g/dL (32.0-36.0); Mean Corpuscular Volume 79.3 fL (80.0-100.0); Mean Platelet Volume 8.5 fL (9.4-12.4); Monocytes # (auto) 0.94 K/uL (0.24-0.82); Monocytes % (auto) 6.8 %; Neutrophils # (auto) 10.37 K/uL (1.4-6.5); Neutrophils % (auto) 74.9 %; Platelet Count 540 K/uL (130-400); RDW Coefficient of Variation 14.4 % (11.5-14.5); RDW Standard Deviation 41.5 fL (36.4-46.3); Red Blood Count 3.72 M/uL (4.63-6.08); White Blood Count 13.84 K/ul (4.8-10.8)
[2022-07-26 14:15] LABS: Alanine Aminotransferase 34 U/L (7-52); Albumin Level 3.6 gm/dl (3.4-5.0); Alkaline Phosphatase 107 U/L (34-104); Anion Gap 10 (3-11); Aspartate Aminotransferase 21 U/L (13-39); BUN Creatinine Ratio 27.1 (10-20); Bilirubin,Total 0.2 mg/dl (0.2-1.0); Blood Urea Nitrogen 19 mg/dl (6-23); Calcium 8.8 mg/dl (8.5-10.1); Carbon Dioxide 19 mmol/L (21-32); Chloride 105 mmol/L (98-107); Est GFR (African American) 116.4 ml/min; Est GFR (Non-African American) 100.4 ml/min; Globulin 3.5 gm/dl (2.5-4.0); Glucose 92 mg/dl (70-99(Fasting)); Potassium 3.3 mmol/L (3.5-5.1); Sodium 134 mmol/L (136-145); Total Protein 7.1 gm/dl (6.0-8.3)
[2022-07-26] MEDS ORDERED: SODIUM CHLORIDE 0.9% 1000ML 1,000 ML IV ONE (15:15)
[2022-07-26] MEDS ORDERED: CEFEPIME 2,000 MG/20 ML VIAL IV STA (15:15)
[2022-07-26] MEDS ORDERED: MoRPHine SULFATE 4 MG/ML 1 ML CARP\\VIAL IV STA (15:29)
[2022-07-26] MEDS ORDERED: ONDANSETRON INJ 2 MG/ML 2 ML VIAL IV STA (15:29)
[2022-07-26] MEDS ORDERED: DAPTOmycin 400 MG in SYRINGE 0 ML IV STA (15:29)
--- NOTE | 2022-07-26 15:39 | Emergency Department Note ---
Impression & Plan Lower back pain, Leukocytosis, Psoas abscess, Discitis, Medical non-compliance ED Provider Note NAME: OPAL ZAMBRANO AGE: 62 SEX: M : 1960 ARRIVES VIA: Walk-In INFORMANT: [Patient] ED PROVIDER(S): [Arian Munoz MD] CHIEF COMPLAINT: Back pain HISTORY OF PRESENT ILLNESS: The patient is a 62-year-old male who has a history of psoas abscess and discitis. He has a history of drug abuse. The patient was at our hospital and transferred to . The patient was on IV antibiotic therapy. He thinks he may have had some drainage performed but is not completely certain. The patient left AGAINST MEDICAL ADVICE from [facility] 3 days ago. They did prescribe him Levaquin and doxycycline as an outpatient. He states that he may have missed a few doses. The patient presents today with increasing back pain, especially with certain movements. The pain is severe. He denies fever or chills. He does complain of right leg weakness which he thinks has worsened since he has had this back infection. REVIEW OF SYSTEMS: See HPI for pertinent positives and negatives. A total of ten systems were reviewed and were otherwise negative. PMHx/PSHx: See Below SOCIAL HISTORY: See Below. PHYSICAL EXAM: GENERAL: Patient is in no acute distress. Anxious. HEENT: No acute trauma, normocephalic atraumatic, mucous membranes moist, no nasal congestion, no scleral icterus. NECK: No stridor, no adenopathy, no meningismus, trachea is midline. LUNGS: Clear to auscultation bilaterally, no wheeze, no rhonchi, breath sounds equal. HEART: Without murmurs gallops or rubs, regular rate and rhythm. ABDOMEN: Soft, nontender, bowel sounds positive, no peritonitis. EXTREMITIES: No cyanosis or edema, full range of motion of all the joints without pain or difficulty, no signs for acute trauma. NEUROLOGIC: Oriented x 3, moving all extremities. No speech slur. SKIN: No rash, no jaundice, no diaphoresis. Back: There is evidence for previous back surgery in the lumbar area. There appears to be a healing puncture site to the right lumbar region. No drainage. He is tender diffusely about the back and also with certain movements. DIFFERENTIAL DIAGNOSIS: Sepsis, UTI, pneumonia, COVID-19, worsening discitis or psoas abscess, metabolic abnormality, electrolyte abnormalities, cardiac sources, cellulitis, bacteremia, intracerebral event, toxicologic etiology, neurologic event, as well as other pathologies. EMERGENCY DEPARTMENT COURSE/PROCEDURES: MEDICAL DECISION MAKING: There is a mild leukocytosis, this could be consistent with infection. The patient is anemic although, he has a history of the same. Platelet count somewhat elevated. No renal failure. The sodium and potassium were both slightly low. No concerning liver enzyme elevation. Urinalysis does not show infection. Urine drug screen was positive for opiates. Lactic acid level was not elevated making severe sepsis less likely. COVID test returned negative. Lumbar spine MRI shows the known discitis at L1-L2. The psoas abscesses have improved. On exam, the patient had lower back pain with movement and palpation. He was not febrile or toxic. The patient received IV cefepime and IV daptomycin as antibiotic coverage. He received IV Zofran and IV morphine. He received IV saline. I did speak with , Dr. Nunes of internal medicine. The patient was to eventually be discharged from their facility on vancomycin every 12 hours, 1 g. He was also received 1 g of aztreonam every 8 hours. This was to be continued for a month in the outpatient setting. A PICC line was replaced before discharge. The patient though left AGAINST MEDICAL ADVICE and this plan was never fully implemented. The patient is not in need of a transfer to [facility]. IV antibiotic therapy is all that is needed as per the [facility] team. Apparently, the patient's cultures from this infection have been negative. With his last hospitalization at [facility], no procedures were performed. No IR drainage. No surgery. I did speak with the patient about staying here in the hospital. I spoke with case management, I talked with the on-call hospitalist. Patient will have the plan from [facility] followed. Past Med/Surg History Medical History Blood loss anemia Diastolic dysfunction Hyperglycemia Hypertension LVH (left ventricular hypertrophy) LVH (left ventricular hypertrophy) severe Obesity Osteoarthritis Polysubstance use disorder Rib fracture left sided, remotely, healed without intervention- does have residual pain over area Rib pain on left side Surgical History History of arthroscopy of shoulder left History of back surgery x5 total History of knee replacement right S/P TKR (total knee replacement) Family History Denies family history of Ovarian cancer Prostate cancer Myocardial infarction Breast cancer Colorectal cancer Social History Smoking Status: Current every day smoker Tobacco Type: Cigarettes Second Hand Exposure: No; Hx Alcohol Use: Yes Hx Substance Use: Yes Prescribed Medications: Marijuana Last Used Substance Other:: medical marijuana Preferred Language: Setswana Communication Ability: Effective Central Office Inspector Required: No Beliefs That Will Affect Care: None marital status: Single Current Living Situation: Alone and Homeless Current Living Situation Comment: lives with mother current occupational status: unemployed Feels Safe at Home: Yes Dental Care, Regularly: No Physical Activity Frequency: Does not Exercise Seatbelt Use: always Assistive Devices: Cane, Walker and Wheelchair Allergies Allergies Allergy/AdvReac Type Severity Reaction Status Date / Time gabapentin Allergy Severe SHORT OF Verified 07/26/22 16:44 BREATH cat dander Allergy Intermediate itchy Verified 07/26/22 16:44 eyes, sneezing codeine AdvReac Intermediate GI upset Verified 07/26/22 16:44 Home Meds Home Medications Medication Instructions Recorded Confirmed doxycycline hyclate 100 mg capsule 100 mg PO BID 07/26/22 07/26/22 levofloxacin 750 mg tablet 750 mg PO DAILY 07/26/22 07/26/22 Previous Rx's Medication Instructions Recorded cyclobenzaprine 10 mg tablet 10 mg PO BID PRN muscle spasm #60 03/13/22 tabs trazodone 50 mg tablet 50 mg PO HS #30 tabs 04/10/22 tramadol 50 mg tablet 50 mg PO .Q4-6H PRN pain, moderate 07/10/22 #35 tabs Results & Data (ED) Vital Signs Vital Signs - 24 hr 07/26/22 13:02 07/26/22 16:25 Temperature 36.8 C Temperature Source Temporal Artery Scan Pulse Rate 114 H Pulse Rate [Finger] 87 Respiratory Rate 18 18 Respiratory Effort / Characteristics Non-Labored Spontaneous Respiratory Depth Normal Respiratory Pattern Regular Blood Pressure 118/84 Blood Pressure [Right Arm] 168/83 H Blood Pressure Mean 95 Blood Pressure Mean [Right Arm] 111 Pulse Oximetry 99 100 Oxygen Delivery Method Room Air Room Air Sepsis Recent Fever Within 48 Hours No Sepsis New/Unexplained Change in Mental Status No Sepsis Action Taken by Nursing No Action Required Home Medications Current Medication List: was personally reviewed by me Laboratory Data Attestation: I reviewed the patient's lab results. Result diagrams: 07/26/22 13:31 07/26/22 13:31 Lab Results 07/26/22 07/26/22 07/26/22 Range/Units 13:31 13:31 13:31 WBC 13.84 H (4.8-10.8) K/ul RBC 3.72 L (4.63-6.08) M/uL Hgb 9.7 L (14.0-18.0) g/dl Hct 29.5 L (40.1-51.0) % MCV 79.3 L (80.0-100.0) fL MCH 26.1 (25.0-34.0) pg MCHC 32.9 (32.0-36.0) g/dL RDW Std Deviation 41.5 (36.4-46.3) fL RDW Coeff of Adele 14.4 (11.5-14.5) % Plt Count 540 H (130-400) K/uL MPV 8.5 L (9.4-12.4) fL Immature Gran % (Auto) 0.5 % Neut % (Auto) 74.9 % Lymph % (Auto) 17.1 % Harding % (Auto) 6.8 % Eos % (Auto) 0.0 % Baso % (Auto) 0.7 % Neut # (Auto) 10.37 H (1.4-6.5) K/uL Lymph # (Auto) 2.37 (1.2-3.4) K/uL Harding # (Auto) 0.94 H (0.24-0.82) K/uL Eos # (Auto) 0.00 (0-0.50) K/uL Baso # (Auto) 0.09 (0-0.2) K/uL Immature Gran # (Auto) 0.07 H (0.00-0.02) K/uL Sodium 134 L (136-145) mmol/L Potassium 3.3 L (3.5-5.1) mmol/L Chloride 105 (98-107) mmol/L Carbon Dioxide 19 L (21-32) mmol/L Anion Gap 10 (3-11) BUN 19 (6-23) mg/dl Creatinine 0.70 (0.6-1.4) mg/dl Est Cr Clr Drug Dosing Not Reportable Est GFR ( Amer) 116.4 ml/min Est GFR (Non-Af Amer) 100.4 ml/min BUN/Creatinine Ratio 27.1 H (10-20) Glucose 92 (70-99(Fasting)) mg/dl Lactate (0.4-2.0) mmol/L Calcium 8.8 (8.5-10.1) mg/dl Magnesium 1.8 (1.7-2.4) mg/dl Total Bilirubin 0.2 (0.2-1.0) mg/dl AST 21 (13-39) U/L ALT 34 (7-52) U/L Alkaline Phosphatase 107 H (34-104) U/L Total Protein 7.1 (6.0-8.3) gm/dl Albumin 3.6 (3.4-5.0) gm/dl Globulin 3.5 (2.5-4.0) gm/dl Albumin/Globulin Ratio 1.0 (0.9-2) Urine Color Urine Appearance (Clear) Urine pH (4.5-7.5) Ur Specific Roper (1.000-1.030) Urine Protein (Negative) Urine Glucose (UA) (Negative) Urine Ketones (Negative) Urine Blood (Negative) Urine Nitrite (Negative) Urine Bilirubin (Negative) Urine Urobilinogen (Negative) Ur Leukocyte Esterase (Negative) Urine Opiates Screen (Neg) Ur Methadone, Qual (Neg) Urine Barbiturates (Neg) Ur Phencyclidine (PCP) (Neg) U Amphetamin/Meth Scrn (Neg) MDMA (Ecstasy) Screen (Neg) U Benzodiazepines Scrn (Neg) Ur Cocaine Metabolite (Neg) U Marijuana (THC) Screen (Neg) SARS-CoV-2, RNA, NAAT (NEGATIVE) 07/26/22 07/26/22 07/26/22 Range/Units 15:52 15:58 16:55 WBC (4.8-10.8) K/ul RBC (4.63-6.08) M/uL Hgb (14.0-18.0) g/dl Hct (40.1-51.0) % MCV (80.0-100.0) fL MCH (25.0-34.0) pg MCHC (32.0-36.0) g/dL RDW Std Deviation (36.4-46.3) fL RDW Coeff of Adele (11.5-14.5) % Plt Count (130-400) K/uL MPV (9.4-12.4) fL Immature Gran % (Auto) % Neut % (Auto) % Lymph % (Auto) % Harding % (Auto) % Eos % (Auto) % Baso % (Auto) % Neut # (Auto) (1.4-6.5) K/uL Lymph # (Auto) (1.2-3.4) K/uL Harding # (Auto) (0.24-0.82) K/uL Eos # (Auto) (0-0.50) K/uL Baso # (Auto) (0-0.2) K/uL Immature Gran # (Auto) (0.00-0.02) K/uL Sodium (136-145) mmol/L Potassium (3.5-5.1) mmol/L Chloride (98-107) mmol/L Carbon Dioxide (21-32) mmol/L Anion Gap (3-11) BUN (6-23) mg/dl Creatinine (0.6-1.4) mg/dl Est Cr Clr Drug Dosing Est GFR ( Amer) ml/min Est GFR (Non-Af Amer) ml/min BUN/Creatinine Ratio (10-20) Glucose (70-99(Fasting)) mg/dl Lactate 1.2 (0.4-2.0) mmol/L Calcium (8.5-10.1) mg/dl Magnesium (1.7-2.4) mg/dl Total Bilirubin (0.2-1.0) mg/dl AST (13-39) U/L ALT (7-52) U/L Alkaline Phosphatase (34-104) U/L Total Protein (6.0-8.3) gm/dl Albumin (3.4-5.0) gm/dl Globulin (2.5-4.0) gm/dl Albumin/Globulin Ratio (0.9-2) Urine Color Yellow Urine Appearance Clear (Clear) Urine pH 6.0 (4.5-7.5) Ur Specific Roper 1.011 (1.000-1.030) Urine Protein Negative (Negative) Urine Glucose (UA) Negative (Negative) Urine Ketones Negative (Negative) Urine Blood Negative (Negative) Urine Nitrite Negative (Negative) Urine Bilirubin Negative (Negative) Urine Urobilinogen Negative (Negative) Ur Leukocyte Esterase Negative (Negative) Urine Opiates Screen (Neg) Ur Methadone, Qual (Neg) Urine Barbiturates (Neg) Ur Phencyclidine (PCP) (Neg) U Amphetamin/Meth Scrn (Neg) MDMA (Ecstasy) Screen (Neg) U Benzodiazepines Scrn (Neg) Ur Cocaine Metabolite (Neg) U Marijuana (THC) Screen (Neg) SARS-CoV-2, RNA, NAAT NEGATIVE (NEGATIVE) 07/26/22 Range/Units 16:55 WBC (4.8-10.8) K/ul RBC (4.63-6.08) M/uL Hgb (14.0-18.0) g/dl Hct (40.1-51.0) % MCV (80.0-100.0) fL MCH (25.0-34.0) pg MCHC (32.0-36.0) g/dL RDW Std Deviation (36.4-46.3) fL RDW Coeff of Adele (11.5-14.5) % Plt Count (130-400) K/uL MPV (9.4-12.4) fL Immature Gran % (Auto) % Neut % (Auto) % Lymph % (Auto) % Harding % (Auto) % Eos % (Auto) % Baso % (Auto) % Neut # (Auto) (1.4-6.5) K/uL Lymph # (Auto) (1.2-3.4) K/uL Harding # (Auto) (0.24-0.82) K/uL Eos # (Auto) (0-0.50) K/uL Baso # (Auto) (0-0.2) K/uL Immature Gran # (Auto) (0.00-0.02) K/uL Sodium (136-145) mmol/L Potassium (3.5-5.1) mmol/L Chloride (98-107) mmol/L Carbon Dioxide (21-32) mmol/L Anion Gap (3-11) BUN (6-23) mg/dl Creatinine (0.6-1.4) mg/dl Est Cr Clr Drug Dosing Est GFR ( Amer) ml/min Est GFR (Non-Af Amer) ml/min BUN/Creatinine Ratio (10-20) Glucose (70-99(Fasting)) mg/dl Lactate (0.4-2.0) mmol/L Calcium (8.5-10.1) mg/dl Magnesium (1.7-2.4) mg/dl Total Bilirubin (0.2-1.0) mg/dl AST (13-39) U/L ALT (7-52) U/L Alkaline Phosphatase (34-104) U/L Total Protein (6.0-8.3) gm/dl Albumin (3.4-5.0) gm/dl Globulin (2.5-4.0) gm/dl Albumin/Globulin Ratio (0.9-2) Urine Color Urine Appearance (Clear) Urine pH (4.5-7.5) Ur Specific Roper (1.000-1.030) Urine Protein (Negative) Urine Glucose (UA) (Negative) Urine Ketones (Negative) Urine Blood (Negative) Urine Nitrite (Negative) Urine Bilirubin (Negative) Urine Urobilinogen (Negative) Ur Leukocyte Esterase (Negative) Urine Opiates Screen Pos H (Neg) Ur Methadone, Qual Neg (Neg) Urine Barbiturates Neg (Neg) Ur Phencyclidine (PCP) Neg (Neg) U Amphetamin/Meth Scrn Neg (Neg) MDMA (Ecstasy) Screen Neg (Neg) U Benzodiazepines Scrn Neg (Neg) Ur Cocaine Metabolite Neg (Neg) U Marijuana (THC) Screen Neg (Neg) SARS-CoV-2, RNA, NAAT (NEGATIVE) Administered Medications Morphine Sulfate (Morphine Sulfate 4 Mg/Ml 1 Ml Carp\Vial) 4 mg IV Q30M PRN PRN Reason: Pain Stop: 08/09/22 15:28 Last Admin: 07/26/22 17:25 Dose: 4 mg Documented By: HJW Discontinued Medications Gadobutrol (Gadobutrol 65ml Vial) 7 ml IV ONCE ONE Stop: 07/26/22 18:03 Last Admin: 07/26/22 18:03 Dose: 7 ml Documented By: AF Cefepime HCl (Maxipime) 2,000 mg in 20 mls @ 5 mls/min IV NOW STA; Protocol Stop: 07/26/22 15:18 Last Admin: 07/26/22 17:04 Dose: 5 mls/min Documented By: ALEJANDRA Sodium Chloride (Nss 1000ml) 1,000 mls @ 999 mls/hr IV .Q1H1M ONE Stop: 07/26/22 16:15 Last Infusion: 07/26/22 17:28 Dose: 0 mls/hr Documented By: Admin: 07/26/22 15:43 Dose: 999 mls/hr Documented By: ALEJANDRA Daptomycin 400 mg/ Syringe 8 mls @ 4 mls/min IV NOW STA; Protocol Stop: 07/26/22 15:30 Last Admin: 07/26/22 17:04 Dose: 4 mls/min Documented By: ALEJANDRA Morphine Sulfate (Morphine Sulfate 4 Mg/Ml 1 Ml Carp\Vial) 4 mg IV NOW STA Stop: 07/26/22 15:30 Last Admin: 07/26/22 15:42 Dose: 4 mg Documented By: ALEJANDRA Ondansetron HCl (Ondansetron Inj 2 Mg/Ml 2 Ml Vial) 4 mg IV NOW STA Stop: 07/26/22 15:30 Last Admin: 07/26/22 15:43 Dose: 4 mg Documented By: ALEJANDRA Imaging Data Radiologist's Impression: Lumbar Spine MRI 07/26/22 15:29 MR lumbar spine wo/w con CLINICAL HISTORY: psoas absess and discitis history TECHNIQUE: 3 plane localizer images, sagittal T2, sagittal T1, sagittal STIR, axial T1, axial T2 along with postcontrast axial T1 and sagittal T1 fat- saturated sequences were obtained of the lumbar spine, before and after intravenous administration of 12 mL of MultiHance. Comparison: Comparison is made to MRI lumbar spine 07/12/2022 FINDINGS: Exam is limited by patient motion and streak artifact from posterior fixation hardware as well as hardware from left sacroiliac fusion. Again noted is fluid signal in the L1 vertebral body and L1-L2 disc space. There is associated decreased T1 signal. Within the limits of susceptibility artifact, severe canal stenosis is again noted at L1-L2. The previously noted bilateral psoas lesions are again decreased in size, previously measured 22 mm on the right and 11 mm in the left, now measure 18 mm in the right and 7 mm on the left. IMPRESSION: 1. 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 Severe canal stenosis is again noted at L1-L2. 2. Interval continued decrease in size in bilateral psoas abscesses. ACT 112: Negative or not required by law. Electronically signed by: Riky Roman M.D. 07/26/2022 7:15 PM Discharge Plan Visit Data Chief Complaint: Back Injury/Pain Stated Complaint: back pain ED Provider: Arian Munoz Discharge Problem: Lower back pain, Leukocytosis, Psoas abscess, Discitis, Medical non-compliance Patient Disposition: Admitted As Inpatient Condition: Fair Forms Stand Alone Forms: My [employer] Prescriptions Prescriptions: No Action cyclobenzaprine 10 mg tablet 10 mg PO BID PRN (Reason: muscle spasm) Qty: 60 3RF trazodone 50 mg tablet 50 mg PO HS Qty: 30 3RF tramadol 50 mg tablet 50 mg PO .Q4-6H PRN (Reason: pain, moderate) Qty: 35 0RF doxycycline hyclate 100 mg capsule 100 mg PO BID levofloxacin 750 mg tablet 750 mg PO DAILY Referrals Referrals: ProMateo MD [Primary Care Provider] -
[2022-07-26 17:13] LABS: Appearance Urine Clear (Clear); Bilirubin Urine Negative (Negative); Blood Urine Negative (Negative); Color Urine Yellow; Glucose Urine UA Negative (Negative); Ketones Urine Negative (Negative); Leukocyte Esterase Urine Negative (Negative); Nitrite Urine Negative (Negative); Protein Urine Negative (Negative); Specific Gravity Urine 1.011 (1.000-1.030); Urobilinogen Urine Negative (Negative)
[2022-07-26] MEDS: MoRPHine SULFATE 4 MG/ML 1 ML CARP\\VIAL IV PRN ×2 (17:25→21:16)
[2022-07-26 17:32] LABS: Amphetamines+Metham, Urine Neg (Neg); Barbiturates, Urine Neg (Neg); Benzodiazepine, Urine Neg (Neg); Cocaine, Urine Neg (Neg); MDMA (Ecstacy), Urine Neg (Neg); Methadone, Urine Neg (Neg); Opiate, Urine Pos (Neg); Phencyclidine, Urine Neg (Neg)
[2022-07-26] MEDS ORDERED: GADOBUTROL 65ML VIAL IV ONE (18:02)
--- NOTE | 2022-07-26 19:17 | Magnetic Resonance Report ---
MR lumbar spine wo/w con CLINICAL HISTORY: psoas absess and discitis history TECHNIQUE: 3 plane localizer images, sagittal T2, sagittal T1, sagittal STIR, axial T1, axial T2 feed g with postcontrast axial T1 and sagittal T1 fat-saturated sequences were obtained of the lumbar spin e, before and after intravenous administration of 12 mL of MultiHance. Comparison: Comparison is made to MRI lumbar spine 07/12/2022 FINDINGS: Exam is limited by patient motion and streak artifact from posterior fixation hardware as well as monico dware from left sacroiliac fusion. Again noted is fluid signal in the L1 vertebral body and L1-L2 dis c space. There is associated decreased T1 signal. Within the limits of susceptibility artifact, sever e canal stenosis is again noted at L1-L2. The previously noted bilateral psoas lesions are again decr eased in size, previously measured 22 mm on the right and 11 mm in the left, now measure 18 mm in the right and 7 mm on the left. IMPRESSION: 1. 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 Severe canal stenosis is again no isaac at L1-L2. 2. Interval continued decrease in size in bilateral psoas abscesses. ACT 112: Negative or not required by law. Electronically signed by: Riky Roman M.D. 07/26/2022 7:15 PM
--- NOTE | 2022-07-26 21:56 | History & Physical Report ---
Date of Service July 26, 2022 Assessment & Plan (1) Discitis: Plan: 62yo male with history as above, worsening back pain in setting of known discitis, osteomyelitis and phlegmon. Findings redemonstrated on imaging today. Neurosurgery contacted by ER physician - no intervention recommended at this time. He has had partial antibiotic treatment - complicated due to multiple hospitalizations, leaving AMA several times and most recently likely medication non-adherence with home regimen of Doxycycline and Levofloxacin. Patient is neurologically intact with no deficits appreciated on exam. He is afebrile, HD stable and nontoxic in appearance. He does have a worsening leukocytosis with neutrophil predominance and bands (WBC=13.84), elevated platelets as well at 540. Blood cultures have been obtained. Difficult management decisions - would be very cautious with placing a PICC line for purpose of antibiotic infusion as patient has history of polysubstance abuse (possible intranasal heroine use most recently?), unstable living situation. Will treat with IV antibiotics while inpatient, ?continuation of PO antibiotics Doxycycline and Levaquin on discharge? -Admit to medical -Check ESR, CRP -Check Procalcitonin -Follow blood cultures sent from ER -Neuro checks q 4 hours -Vancomycin 1gm IV BID, adjustment per pharmacy protocol -Aztreonam 2gm IV q 8 hours -ID consultation appreciated -Continue Cyclobenzaprine PRN -Continue Tramadol PRN -Toradol 15mg IV q 6 hours PRN -Avoid IV opiates if possible -Case Management consultation appreciated to offer assistance with obtaining stable housing (2) Psoas abscess: Plan: Reduced in size. Per review of records, sterile aspirate from [place] -Treatment with IV Vancomycin and Aztreonam -ID followup in 3 weeks recommended (3) Polysubstance use disorder: Plan: Noted. Encourage cessation (4) HTN (hypertension): Plan: Elevated presently at 164/77. Patient does not take any medications for blood pressure at present -Pain control -Monitor F/E/N- Heplock. K repletion, check Mg and PO4 x 1 and replete as needed, regular diet as tolerated Ppx - Low risk for DVT Code - Full Dispo - Admit to medical History of Present Illness Primary Care Provider: Mateo Carrasco MD Tigre Camacho is a 62yo male with history of HTN, HFpEF, multiple spinal surgeries returning to [facility] with back pain. Patient has a complicated medical history. He was initially seen at [facility] ER on 05/31/22 with 2-3 days of lower back pain, progressive weakness and falls. During his ER workup he had a CT of the abdomen which revealed discitis, psoas abscess and epidural abscess. An MRI of the Lumbar spine confirmed these findings. Patient was administered Daptomycin 400mg IV and Cefepime 2000mg x 1 dose in the ER. Ortho-Spine was consulted and patient was transferred to [facility] for possible neurosurgical intervention. Daptomycin was discontinued due to elevation of CK. Patient was hospitalized at [facility] from 06/01/22 - 07/05/22. His initial CT revealed L1-L2 discitis/osteomyelitis with possible epidural abscess, bilateral psoas abscesses. He had IR drainage of the right and left psoas abscesses on 06/02/22 with drain exchange on 06/18/22. He was treated with Cefepime and Vancomycin. He was planned to be discharged with a PICC line in place to complete antibiotic course of Vancomycin and Aztreonam x 6 weeks, however, he left A on 07/04/22 without getting PICC line placed. Cultures reportedly negative from psoas abscesses. He returned to [facility] on 07/11/22 with confusion after being found by his niece in his hotel, confused and disheveled. . He was admitted under 302 petition. Patient encephalopathic during his hospitalization secondary to electrolyte disturbances, infection and polysubstance use. He had an MRI of the lumbar spine on 07/12/22 which revealed significant decrease in size of the bilateral psoas intramuscular abscesses when compared to MRI study from 05/31/22. Still with L1-L2 discitis and osteomyelitis, increased in size when compare do study from [place] (1.9 cm vs 2.2 x 1.6cm abscesses - enlarged while off antibiotics). He was ultimately transferred again to [facility] on 07/13/22 due to concern for worsening infection and possible need for neurosurgical intervention. He had an MRI of the lumbar spine with and without contrast at [place] on 07/14/22 which revealed improved focal right and left psoas abscesses, right > left. Persistent anterior and right/left lateral paraspinal phlegmonous changes extending from L1-L2 disc space and over the L2 vertebral body segment.. Extruded disc at the left L2 lateral recess, please correlate left L2/L3 radicular symptoms. Extensive postoperative changes limiting objective evaluation of the capacity of the spinal canal. He was evaluated by ID while at [place] - was recommended to continue Vancomycin 1gm IV q 12h and Aztreonam 1g IV q 8 hours x 4 weeks and to followup in ID clini c in 3 weeks He was seen by Neurosurgery at [place] and no intervention recommended. He was also seen by Interventional Radiology - stated that abscesses were not large enough to place a drain an aspiration was not recommended. His pain was managed with Tramadol, Cyclobenzaprine, Tylenol, Lidocaine patch and Duloxetine. Patient ultimately left AMA on 07/23/22 - stated he needed to prevent repo session of his property. He was discharged home with Levaquin and Doxycycline to complete a 4 week course. Patient returns to [facility] ER today with complaint of worsening back pain and leg weakness. He reports he has been taking his Doxycycline and Levaquin but "may have missed some doses". He has been living in a hotel since returning from [facility]. He states that he has been having worsening back pain over the last two days. He reports that his pain has been so bad that he has "blacked out" several times. He also reports self medicating with a "white street powder" that he snorted. Was unwilling to disclose exactly what drug it was, stated that it helped with the pain, possibly heroine. He denies fever, chills, malaise, nausea, vomiting, diarrhea or constipation. Denies bowel or bladder complaints. Patient endorses a complicated living situation. 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 She in the spring. Patient reports that he was getting her home cleaned out when he initially developed the back pain and had to be hospitalized. He states that when he got out of the hospital his siblings had packed up his things, kicked him out of his mother's home and were in the process of selling the house. He reports he has been living in hotels and motels ever since. He also reports that he is working on obtaining more permanent housing and is on several waiting lists for apartments. In the ER patient is afebrile, hypertensive, otherwise HD stable. He is non- toxic in appearance. MRI of the lumbar spine obtained, results below. ER Course: Cefepime, Daptomycin, Morphine Allergies Allergy/AdvReac Type Severity Reaction Status Date / Time gabapentin Allergy Severe SHORT OF Verified 07/26/22 16:44 BREATH cat dander Allergy Intermediate itchy Verified 07/26/22 16:44 eyes, sneezing codeine AdvReac Intermediate GI upset Verified 07/26/22 16:44 Home Medications Medication Instructions Recorded Confirmed Type cyclobenzaprine 10 mg tablet 10 mg PO BID PRN muscle spasm #60 03/13/22 07/26/22 Rx tabs trazodone 50 mg tablet 50 mg PO HS #30 tabs 04/10/22 07/26/22 Rx tramadol 50 mg tablet 50 mg PO .Q4-6H PRN pain, moderate 07/10/22 07/26/22 Rx #35 tabs doxycycline hyclate 100 mg capsule 100 mg PO BID 07/26/22 07/26/22 History levofloxacin 750 mg tablet 750 mg PO DAILY 07/26/22 07/26/22 History Past Med/Surg History Medical History Blood loss anemia Diastolic dysfunction Hyperglycemia Hypertension LVH (left ventricular hypertrophy) LVH (left ventricular hypertrophy) severe Obesity Osteoarthritis Polysubstance use disorder Rib fracture left sided, remotely, healed without intervention- does have residual pain over area Rib pain on left side Surgical History History of arthroscopy of shoulder left History of back surgery x5 total History of knee replacement right S/P TKR (total knee replacement) Family History Denies family history of Ovarian cancer Prostate cancer Myocardial infarction Breast cancer Colorectal cancer Social History Smoking Status: Current every day smoker Tobacco Type: Cigarettes Second Hand Exposure: No; Hx Alcohol Use: Yes Hx Substance Use: Yes Prescribed Medications: Marijuana Last Used Substance Other:: medical marijuana Preferred Language: [place] Citizen Communication Ability: Effective 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 Beliefs That Will Affect Care: None marital status: Single Current Living Situation: Alone and Homeless Current Living Situation Comment: lives with mother current occupational status: unemployed Feels Safe at Home: Yes Dental Care, Regularly: No Physical Activity Frequency: Does not Exercise Seatbelt Use: always Assistive Devices: Cane, Walker and Wheelchair Review of Systems Review of Systems: All systems reviewed & are unremarkable except as noted in HPI & below Physical Exam Physical Exam: General: patient resting comfortably, NAD, non-toxic in appearance, AA&O x 4 Skin: warm, dry, intact, no rashes or lesions HEENT: NC/AT, PERRL, EOMI, anicteric sclera, conjunctiva without injection, external ear normal to inspection and nontender, nares patent, moist mucus membranes, upper dentures in place, no oropharyngeal lesions, neck supple, trachea midline, no LAD, no thyromegaly, no JVD Heart: +S1/S2, regular, no m/r/g Lungs: equal air entry bilaterally, no rales/rhonchi/wheezes Abd: +BS, soft, NT/ND, no masses/organomegaly/ascites Ext: warm, 2+ pulses in UE/LE bilaterally, no clubbing/cyanosis or edema Neuro: nonfocal, patient AA&O x 4, speech intact, no facial droop, moving all extremities on command with equal strength 5/5, gait not assessed, reflexes intact Results & Data Results & Data ([facility]) Vital Signs (Past 12 Hours) Vital Signs Temp Pulse Pulse Resp BP BP Pulse Ox 07/26/22 16:25 87 18 168/83 H 100 07/26/22 13:02 36.8 C 114 H 18 118/84 99 O2 Del Method 07/26/22 16:25 Room Air 07/26/22 13:02 Room Air Laboratory Results Laboratory Results WBC 13.84 K/ul (4.8-10.8) H 07/26/22 13:31 RBC 3.72 M/uL (4.63-6.08) L 07/26/22 13:31 Hgb 9.7 g/dl (14.0-18.0) L 07/26/22 13:31 Hct 29.5 % (40.1-51.0) L 07/26/22 13:31 MCV 79.3 fL (80.0-100.0) L 07/26/22 13:31 MCH 26.1 pg (25.0-34.0) 07/26/22 13:31 MCHC 32.9 g/dL (32.0-36.0) 07/26/22 13:31 RDW Std Deviation 41.5 fL (36.4-46.3) 07/26/22 13:31 RDW Coeff of Adele 14.4 % (11.5-14.5) 07/26/22 13:31 Plt Count 540 K/uL (130-400) H 07/26/22 13:31 MPV 8.5 fL (9.4-12.4) L 07/26/22 13:31 Immature Gran % (Auto) 0.5 % 07/26/22 13:31 Neut % (Auto) 74.9 % 07/26/22 13:31 Lymph % (Auto) 17.1 % 07/26/22 13:31 [place] % (Auto) 6.8 % 07/26/22 13:31 Eos % (Auto) 0.0 % 07/26/22 13:31 Baso % (Auto) 0.7 % 07/26/22 13:31 Neut # (Auto) 10.37 K/uL (1.4-6.5) H 07/26/22 13:31 Lymph # (Auto) 2.37 K/uL (1.2-3.4) 07/26/22 13:31 [place] # (Auto) 0.94 K/uL (0.24-0.82) H 07/26/22 13:31 Eos # (Auto) 0.00 K/uL (0-0.50) 07/26/22 13:31 Baso # (Auto) 0.09 K/uL (0-0.2) 07/26/22 13:31 Immature Gran # (Auto) 0.07 K/uL (0.00-0.02) H 07/26/22 13:31 Sodium 134 mmol/L (136-145) L 07/26/22 13:31 Potassium 3.3 mmol/L (3.5-5.1) L 07/26/22 13:31 Chloride 105 mmol/L (98-107) 07/26/22 13:31 Carbon Dioxide 19 mmol/L (21-32) L 07/26/22 13:31 Anion Gap 10 (3-11) 07/26/22 13:31 BUN 19 mg/dl (6-23) 07/26/22 13:31 Creatinine 0.70 mg/dl (0.6-1.4) 07/26/22 13:31 Est Cr Clr Drug Dosing Not Reportable 07/26/22 13:31 Est GFR ( Amer) 116.4 ml/min 07/26/22 13:31 Est GFR (Non-Af Amer) 100.4 ml/min 07/26/22 13:31 BUN/Creatinine Ratio 27.1 (10-20) H 07/26/22 13:31 Glucose 92 mg/dl (70-99(Fasting)) 07/26/22 13:31 Lactate 1.2 mmol/L (0.4-2.0) 07/26/22 15:52 Calcium 8.8 mg/dl (8.5-10.1) 07/26/22 13:31 Magnesium 1.8 mg/dl (1.7-2.4) 07/26/22 13:31 Total Bilirubin 0.2 mg/dl (0.2-1.0) 07/26/22 13:31 AST 21 U/L (13-39) 07/26/22 13:31 ALT 34 U/L (7-52) 07/26/22 13:31 Alkaline Phosphatase 107 U/L (34-104) H 07/26/22 13:31 Total Protein 7.1 gm/dl (6.0-8.3) 07/26/22 13:31 Albumin 3.6 gm/dl (3.4-5.0) 07/26/22 13:31 Globulin 3.5 gm/dl (2.5-4.0) 07/26/22 13:31 Albumin/Globulin Ratio 1.0 (0.9-2) 07/26/22 13:31 Urine Color Yellow 07/26/22 16:55 Urine Appearance Clear (Clear) 07/26/22 16:55 Urine pH 6.0 (4.5-7.5) 07/26/22 16:55 Ur Specific [place] 1.011 (1.000-1.030) 07/26/22 16:55 Urine Protein Negative (Negative) 07/26/22 16:55 Urine Glucose (UA) Negative (Negative) 07/26/22 16:55 Urine Ketones Negative (Negative) 07/26/22 16:55 Urine Blood Negative (Negative) 07/26/22 16:55 Urine Nitrite Negative (Negative) 07/26/22 16:55 Urine Bilirubin Negative (Negative) 07/26/22 16:55 Urine Urobilinogen Negative (Negative) 07/26/22 16:55 Ur Leukocyte Esterase Negative (Negative) 07/26/22 16:55 Urine Opiates Screen Pos (Neg) H 07/26/22 16:55 Ur Methadone, Qual Neg (Neg) 07/26/22 16:55 Urine Barbiturates Neg (Neg) 07/26/22 16:55 Ur Phencyclidine (PCP) Neg (Neg) 07/26/22 16:55 U Amphetamin/Meth Scrn Neg (Neg) 07/26/22 16:55 MDMA (Ecstasy) Screen Neg (Neg) 07/26/22 16:55 U Benzodiazepines Scrn Neg (Neg) 07/26/22 16:55 Ur Cocaine Metabolite Neg (Neg) 07/26/22 16:55 U Marijuana (THC) Screen Neg (Neg) 07/26/22 16:55 SARS-CoV-2, RNA, NAAT NEGATIVE (NEGATIVE) 07/26/22 15:58 Impressions Lumbar Spine MRI 07/26/22 15:29 MR lumbar spine wo/w con CLINICAL HISTORY: psoas absess and discitis history TECHNIQUE: 3 plane localizer images, sagittal T2, sagittal T1, sagittal STIR, axial T1, axial T2 along with postcontrast axial T1 and sagittal T1 fat- saturated sequences were obtained of the lumbar spine, before and after intravenous administration of 12 mL of MultiHance. Comparison: Comparison is made to MRI lumbar spine 07/12/2022 FINDINGS: Exam is limited by patient motion and streak artifact from posterior fixation hardware as well as hardware from left sacroiliac fusion. Again noted is fluid signal in the L1 vertebral body and L1-L2 disc space. There is associated decreased T1 signal. Within the limits of susceptibility artifact, severe canal stenosis is again noted at L1-L2. The previously noted bilateral psoas lesions are again decreased in size, previously measured 22 mm on the right and 11 mm in the left, now measure 18 mm in the right and 7 mm on the left. IMPRESSION: 1. 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 Severe canal stenosis is again noted at L1-L2. 2. Interval continued decrease in size in bilateral psoas abscesses. ACT 112: Negative or not required by law. Electronically signed by: Riky Roman M.D. 07/26/2022 7:15 PM PG Care Time/CCT Total # of Minutes Spent Total Time Spent with Patient: Total time spent is greater than 50% in coordination of care (as documented) at patient's floor/unit and/or counseling patient: Coding Level of Care Code 30887 Initial Inpt Care Lvl 3 Diagnoses Discitis M46.46 Spinal region: lumbar Psoas abscess K68.12 Polysubstance use disorder F19.90 HTN (hypertension) I10 (1) Discitis Spinal region: lumbar Qualified Code(s): M46.46 - Discitis, unspecified, lumbar region
[2022-07-26] MEDS: NICOTINE 21 MG/24 HR TDSY TD SCH (22:09)
[2022-07-26] MEDS ORDERED: ACETAMINOPHEN 325 MG TAB PO PRN (22:52)
[2022-07-26] MEDS ORDERED: ONDANSETRON INJ 2 MG/ML 2 ML VIAL IV PRN (22:52)
[2022-07-26] MEDS ORDERED: VANCOMYCIN CONSULT ACTIVE PRN (22:52)
[2022-07-26] MEDS ORDERED: POLYETHYLENE (MIRALAX) 17 GM PACK PO PRN (22:52)
[2022-07-26] MEDS ORDERED: NALOXONE HCL 0.4 MG/1 ML VIAL/CARP IV PRN (22:52)
[2022-07-26] MEDS ORDERED: POTASSIUM CHLORIDE CRTAB 20 MEQ TABCR PO STA (22:52)
[2022-07-26] MEDS ORDERED: VANCOMYCIN HCL 1,750 MG in SODIUM CHLORIDE 0.9% 500 ML IV ONE (23:15)
[2022-07-26 23:38] LABS: C Reactive Protein 0.58 mg/dl (0-0.5); Phosphorus 3.9 mg/dl (2.5-4.9)
[2022-07-26] MEDS: AZTREONAM 1,000 MG in DEXTROSE 5% 100 ML IV SCH (23:59)
[2022-07-26] MEDS: KETOROLAC TROMETHAMINE 15 MG/ML VIAL IV PRN (23:59)
[2022-07-27] MEDS: CYCLOBENZAPRINE HCL 10 MG TAB PO PRN ×2 (04:41→17:29)
[2022-07-27] MEDS: KETOROLAC TROMETHAMINE 15 MG/ML VIAL IV PRN ×3 (06:32→22:08)
--- NOTE | 2022-07-27 07:34 | Hospitalist Progress Note ---
Date of Service July 27, 2022 Assessment & Plan (1) Discitis: Plan: 62yo male with history as above, worsening back pain in setting of known discitis, osteomyelitis and phlegmon. Findings redemonstrated on imaging today. Neurosurgery contacted by ER physician - no intervention recommended at this time. He has had partial antibiotic treatment - complicated due to multiple hospitalizations, leaving AMA several times and most recently likely medication non-adherence with home regimen of Doxycycline and Levofloxacin. Patient is neurologically intact with no deficits appreciated on exam. He is afebrile, HD stable and nontoxic in appearance. He does have a worsening leukocytosis with neutrophil predominance and bands (WBC=13.84), elevated platelets as well at 540. Blood cultures have been obtained. Difficult management decisions - would be very cautious with placing a PICC line for purpose of antibiotic infusion as patient has history of polysubstance abuse (possible intranasal heroine use most recently?), unstable living situation. Will treat with IV antibiotics while inpatient, ?continuation of PO antibiotics Doxycycline and Levaquin on discharge? -Admit to medical -Check ESR, CRP -Check Procalcitonin -Follow blood cultures sent from ER -Neuro checks q 4 hours -Vancomycin 1gm IV BID, adjustment per pharmacy protocol -Aztreonam 2gm IV q 8 hours -ID consultation appreciated -Continue Cyclobenzaprine PRN -Continue Tramadol PRN -Toradol 15mg IV q 6 hours PRN -Avoid IV opiates if possible -Case Management consultation appreciated to offer assistance with obtaining stable housing (2) Psoas abscess: Plan: Reduced in size. Per review of records, sterile aspirate from [place] -Treatment with IV Vancomycin and Aztreonam -ID followup in 3 weeks recommended (3) Polysubstance use disorder: Plan: Noted. Encourage cessation (4) HTN (hypertension): Plan: Elevated presently at 164/77. Patient does not take any medications for blood pressure at present -Pain control -Monitor F/E/N- Heplock. K repletion, check Mg and PO4 x 1 and replete as needed, regular diet as tolerated Ppx - Low risk for DVT Code - Full Dispo - Admit to medical Admission and Anticipated Discharge Date Admission Date: July 26, 2022 Results & Data Results & Data ([facility]) Vital Signs (Past 12 Hours) Vital Signs Temp Pulse Resp BP Pulse Ox O2 Del Method 07/26/22 23:00 37.1 C 98 H 20 180/92 H 98 Room Air 07/26/22 22:52 37.1 C 98 H 20 180/92 H 98 Room Air 07/26/22 21:38 95 H 18 164/77 H 97 PG Care Time/CCT Total # of Minutes Spent Total Time Spent with Patient: Total time spent is greater than 50% in coordination of care (as documented) at patient's floor/unit and/or counseling patient: Coding Diagnoses Discitis M46.46 Spinal region: lumbar Psoas abscess K68.12 Polysubstance use disorder F19.90 HTN (hypertension) I10 (1) Discitis Spinal region: lumbar Qualified Code(s): M46.46 - Discitis, unspecified, lumbar region
[2022-07-27 07:58] LABS: Hematocrit (blood only) 28.9 % (40.1-51.0); Mean Corpuscular Hemoglobin 25.8 pg (25.0-34.0); Mean Corpuscular Hgb Conc 31.1 g/dL (32.0-36.0); Mean Corpuscular Volume 82.8 fL (80.0-100.0); Mean Platelet Volume 8.4 fL (9.4-12.4); Platelet Count 483 K/uL (130-400); RDW Coefficient of Variation 14.6 % (11.5-14.5); RDW Standard Deviation 43.8 fL (36.4-46.3); Red Blood Count 3.49 M/uL (4.63-6.08); White Blood Count 11.08 K/ul (4.8-10.8)
[2022-07-27] MEDS ORDERED: Flu Vaccine (Fluarix) 0.5mL SYR (Standard Dose) IM ONE (08:00)
--- NOTE | 2022-07-27 08:15 | Hospitalist Progress Note ---
Date of Service July 27, 2022 Assessment & Plan (1) Discitis: Plan: 62yo male with history as above, worsening back pain in setting of known discitis, osteomyelitis and phlegmon. Findings redemonstrated on imaging on intake initial review of images suggest interval improvement. Neurosurgery contacted by ER physician - no intervention recommended at this time. He has had partial antibiotic treatment - complicated due to multiple hospitalizations, leaving AMA several times and most recently likely medication non-adherence with home regimen of Doxycycline and Levofloxacin. Patient is neurologically intact with no deficits appreciated on exam. He is afebrile, HD stable and nontoxic in appearance. Blood cultures are negative to date Difficult management decisions - would be very cautious with placing a PICC line for purpose of antibiotic infusion as patient has history of polysubstance abuse (possible intranasal heroine use most recently?), unstable living situation. Will treat with IV antibiotics while inpatient, ?continuation of PO antibiotics Doxycycline and Levaquin on discharge? Procalcitonin -Follow blood cultures sent from ER -Vancomycin 1gm IV BID, adjustment per pharmacy protocol -Aztreonam 2gm IV q 8 hours -ID consultation appreciated -Continue Cyclobenzaprine PRN -Continue Tramadol PRN -Toradol 15mg IV q 6 hours PRN -Avoid IV opiates if possible -Case Management consultation appreciated to offer assistance with obtaining stable housing (2) Psoas abscess: Plan: Reduced in size. Per review of records, sterile aspirate from [place] -Treatment with IV Vancomycin and Aztreonam -ID followup in 3 weeks recommended (3) Polysubstance use disorder: Plan: Noted. Encourage cessation (4) HTN (hypertension): Plan: Elevated presently at 164/77. Patient does not take any medications for blood pressure at present Code - Full Admission and Anticipated Discharge Date Admission Date: July 26, 2022 Subjective Patient is a gruff complaining of back pain and right leg weakness which is chronic for him he has no typical neuropathic pain but the pain does begin in his both hips radiates across his back and causes him to have some muscular weakness of his leg Review of Systems Review of Systems: Moderate distress and fatigue no headache, no visual changes no speech or swallowing issues no chest pain, pressure or palpitations no shortness of breath, cough or wheezes no abdominal pain, nausea or vomiting, diarrhea or constipation no dysuria, hematuria or frequency no focal joint pain or swelling Patient has bilateral hip and back pain radiating across his back without radicular pain down his leg no bruising, there is a small rash on his posterior right hip with keeping an eye on no focal signs of weakness or numbness or altered sensation no complaints of anxiety or depression.. Physical Exam Physical Exam: The patient appeared well nourished and normally developed. He appears chronically ill Vital signs as documented. Head exam is normocephalic atraumatic Neck is without JVD, thyromegaly, or carotid bruits. Lungs are clear to auscultation, no focal loss of breath sounds Cardiac exam, Rhythm is regular.. No murmurs, rubs or gallops. 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 Results & Data Results & Data ([facility]) Vital Signs (Past 12 Hours) Vital Signs Temp Pulse Resp BP Pulse Ox O2 Del Method 07/27/22 07:39 98.8 F 89 18 162/87 H 99 Room Air 07/26/22 23:00 98.8 F 98 H 20 180/92 H 98 Room Air 07/26/22 22:52 98.8 F 98 H 20 180/92 H 98 Room Air 07/26/22 21:38 95 H 18 164/77 H 97 PG Care Time/CCT Total # of Minutes Spent Total Time Spent with Patient: Total time spent is greater than 50% in coordination of care (as documented) at patient's floor/unit and/or counseling patient: Coding Level of Care Code 09569 Subseq Hosp Care Lvl 3 Diagnoses Discitis M46.46 Spinal region: lumbar Psoas abscess K68.12 Polysubstance use disorder F19.90 HTN (hypertension) I10 (1) Discitis Spinal region: lumbar Qualified Code(s): M46.46 - Discitis, unspecified, lumbar region
[2022-07-27 08:26] LABS: BUN Creatinine Ratio 23.9 (10-20); Calcium 8.8 mg/dl (8.5-10.1); Creatinine Clr Calc Pharmacy 98.2 ml/min; Est GFR (African American) 118.5 ml/min; Est GFR (Non-African American) 102.3 ml/min; Potassium 4.1 mmol/L (3.5-5.1)
[2022-07-27 08:39] LABS: Ferritin 29.8 ng/ml (8-388)
[2022-07-27] MEDS: NICOTINE 21 MG/24 HR TDSY TD SCH (08:58)
[2022-07-27] MEDS: METOPROLOL TARTRATE 25 MG TAB PO SCH (09:00)
[2022-07-27] MEDS: AZTREONAM 1,000 MG in DEXTROSE 5% 100 ML IV SCH ×2 (09:26→17:31)
--- NOTE | 2022-07-27 10:11 | Pharmacy Report ---
Pharmacy PK ABX Note - Date of Service July 27, 2022 - Assessment and Plan Assessment * Mr Camacho is a 62 year old M receiving vancomycin + aztreonam for treatment of discitis. * Pt with a complicated history. See H&P for additional information. * Since his last discharge from a hospital, he was prescribed PO doxycycline and levofloxacin, however, pt's compliance with med administration is questionable. * ID consulted; awaiting recommendations Plan Vancomycin * Loading dose: 1750 mg IV x 1 * Maintenance dose: 1250 mg IV every 12 hours * Regimen is predicted to achieve target AUC/FRANCISCO of 400-600 mg/L.hr * Trough [Random] level ordered for: []/[]/[] Pharmacy will continue to follow and will adjust dose/frequency as necessary. Thank you. Pharmacy has transitioned to AUC monitoring for vancomycin. AUC/FRANCISCO is the preferred PK/PD target and is associated with decreased risk of nephrotoxicity compared to traditional trough targets.
[2022-07-27] MEDS: VANCOMYCIN HCL 1,250 MG in SODIUM CHLORIDE 0.9% 250 ML IV SCH ×2 (12:32→20:28)
--- NOTE | 2022-07-27 13:53 | Infectious Disease Consult ---
Date of Consultation July 27, 2022 Assessment & Plan (1) Psoas abscess: (2) Lower back pain: (3) Leukocytosis: (4) Discitis: Plan This is a 62 year old male with a history of HtN, osteoarthritis, polysubstance abuse, HFpEF right TKR, multiple back surgeries,reportedly sp removal of prior posterior instrumentation from L3-S1 with repeat posterior spinal fusion at L2- L3 and L3-L4 in 2019, recent diagnosis of lumbar spine osteomyelitis with psoas abscess brought into the ED on 07/11/2022 by EMS on a 302 petition by his niece returns to the ED on 07/26/22 with worsening back pain. He was initially admitted to [facility] on 05/31/22 with weakness and back pain. He was diagnosed with lumbar spine osteomyelitis/diskitis and psoas abscess. Imaging also noted pedicle screws and rods from L2-S1. Spinal surgery recommended transfer to a tertiary center and p atient received a dose of Daptomycin and cefepime. He was transferred to [facility] for possible neurosurgical intervention. He was admitted to [facility] from 06/01/22-07/05/22. A Ct spine there showed l1-l2 diskitis/osteomyelitis with possible epidural abscess and psoas abscess. He was evaluated by neurosurgery and did not undergo surgical intervention. He underwent IR guided psoas abscess drainage with right-sided drain placement on 06/02. A TTE on 06/07/2022 was technically difficult but showed normal EF and normal valves. A 06/14/22 MRI spine showed extensive postsurgical changes of lumbosacral spine with evidence of paraspinal enhancement and bilateral abscesses with likely component of osteomyelitis at L1. On 06/18 exchange of right sided drain was requested due to minimal output. CT abdomen pelvis with contrast on 06/25/22 showed that the bilateral psoas collections had much improved measuring approximately 1.9 cm. Daptomycin was discontinued on 06/01 secondary to elevated CPK. He was treated with IV vancomycin and aztreonam throughout his admission. He was evaluated by ID who recommended antibiotics through 07/14/22 and repeat MRI after completion of antibiotics. The patient left AMA on 07/05/2022. Culture results are not available in review of available information in EMR but per report by primary team, cultures at [facility] were sterile. Approximately 1 week post AMA discharge, he was brought to [facility] on 07/11/22 by his niece. He was found altered, disheveled in a hotel and there was concern that he could not take care of himself. A Utox on that admission was positive for amphetamine, MDMA, benzos and cocaine. A lumbar spine MRi on 07/12/22 showed decrease in size of the bilateral psoas abscesses when compared to MRI study from 05/31/22. The L1-L2 discitis and osteomyelitis was unchanged. There was some concern however that the size of the psoas collections has increased in size from imaging results at [facility] off of antibiotics (1.9 cm vs 2.2 x 1.6cm) He was again transferred to [facility] on 07/13/22 for reevaluation of worsening infection and n eed for neurosurgical intervention. He was started on Aztreonam and vancomycin. A Lumbar spine MRI done at [facility] on 07/14/22 showed improved focal right and left psoas abscesses,persistent anterior and bilateral paraspinal phlegmonous changes extending from L1-L2 disc space and over the L2 vertebral body segment He was evaluated by Neurosurgery, Interventional Radiology and Infectious Disease. No surgical intervention was deemed necessary by Neurosurgery; IR felt his abscesses were not large enough for intervention; [facility] recommended that he complete Vancomycin and Aztreonam for 4 weeks ( approximate end date 08/11/22) with ID follow up in 3 weeks post discharge. He unfortunately again left AMA on 07/23/22. He was discharged on oral Levaquin and Doxycycline to complete a 4 week course as a suboptimal option in setting of leaving AMA. He returns to [facility] 3 days after this AMA discharge on 07/26/22 with worsening back pain and leg weakness. He reports taking Doxycyclinea nd Levaquin but admits to missing doses. He reports that the kenya pain is severe enough that " he blacked out". He reports self medicating with unknown substances. He is currently living in a hotel. He denies fever, chills, nausea, vomiting, change in urine or bowel habits. On admission he is afebrile. He is relatively stable hemodynamically except for hypertension. Labs ar noted for a WBc 13.84, ESR 32 CRP 0.58. A lumbar MRi done on 07/26/22 re-demonstrated findings of discitis osteomyelitis at L1-L2, unchanged severe canal stenosis at L1-L2.and interval continued decrease in size in bilateral psoas abscesses. He recieved a dose of Daptomycin and Cefepime. He is currently on Aztreonam and Vancomycin. ID consulted for evaluation of Lumbar osteomyelitis and psoas abscess. MIcro Per report . cultures at [facility] since 05/2022 have been sterile Cultures sterile at [facility] Abx Cefepime 07/26 daptomycin 07/26 Vancomycin 07/26- ongoing Epsnvisve36/20- ongoing 1. Chronic Lumbar spine osteomyelitis/diskitis 2. Bilateral psoas abscess -Sterile BC and abcess cultures sterile per report and per review of available records and culture date esr 32, crp 0.58 -interrupted antibiotic therapy - has been on vancomycin, aztreonam, cefepime, daptomycin , doxycycline, levaquin on and off since 05/2022 3. History of leaving AMA 4. Polysubstance abuse 5. Housing instability Reommendations He has chronic lumbar osteomyelitis and persistent bilateral psoas abscesses on MRI although decreased in size He has been on and off antibiotics since 05/31 (7- 8 weeks). He has multiple spinal hardware and TKR. Although he has had incomplete recommended antibiotic therapy to date, I dont think think antibiotics alone will adequately manage his infection in the setting of hardware. He has not been deemed a surgical candidate and IR feels the residual psoas abscesses are not large enough for intervention. He has no positive cultures to date to help target antibiotic selection. Cultures have remained sterile on IV vancomycin and Aztreonam. He remains hemodynamically stable. If there is no plan for surgical intervention, he can continue IV vancomycin and Aztreonam for 4 weeks as recommended by [facility] prior to his AMA discharge on 07/23. He missed 3 days of IV abx prior to this readmission. Plan to complete therapy on 08/14 with ID follow up as scheduled. He will likely need suppressive PO abx therapy after completion of IV abx in the setting or retained spinal hardware. IF he leaves AMA, would disicharge on oral doxycycline and levaquin (levaquin if qtc < 500). Follow up BC. Would obtain all cultures from previous admission at [facility] and scan in system. Thank you for allowing me to participate in the care of your patient. Miguel Dean MD MPH ID [facility] ID Division Please page with any questions. ID physician is available over phone on weekend for any questions/concerns. Consultation Information This patient recommendation is based on a telemedicine consult request which was completed asynchronously through chart review and information provided by the primary physician. The patient was not seen or examined today. The evaluation is consultative in nature and all patient care and treatment decisions can either be accepted or rejected by the patient's primary hospital-based treating physician using their own independent medical judgment for their patient. Slate Splitting Supervisor contact information: Please call ID Connect Call Center . (Phone Number For Physician Use Only) Time Spent Reviewing Chart: 31+ minutes History of Present Illness Reason for Consultation: psoas abscess, diskitis/osteomyelitis Requesting Physician: Vivienne Anne DO Attending Physician: Erich Menezes MD History of Present Illness This is a 62 year old male with a history of HtN, osteoarthritis, polysubstance abuse, HFpEF right TKR, multiple back surgeries,reportedly sp removal of prior posterior instrumentation from L3-S1 with repeat posterior spinal fusion at L2- L3 and L3-L4 in 2019, recent diagnosis of lumbar spine osteomyelitis with psoas abscess brought into the ED on 07/11/2022 by EMS on a 302 petition by his niece returns to the ED on 07/26/22 with worsening back pain. He was initially admitted to [facility] on 05/31/22 with weakness and back pain. He was diagnosed with lumbar spine osteomyelitis/diskitis and psoas abscess. Imaging also noted pedicle screws and rods from L2-S1. Spinal surgery recommended transfer to a tertiary center and patient received a dose of Daptomycin and cefepime. He was transferred to [facility] for possible neurosurgical intervention. He was admitted to [facility] from 06/01/22-07/05/22. A Ct spine there showed l1-l2 diskitis/osteomyelitis with possible epidural abscess and psoas abscess. He was evaluated by neurosurgery and did not undergo surgical intervention. He underwent IR guided psoas abscess drainage with right-sided drain placement on 06/02. A TTE on 06/07/2022 was technically difficult but showed normal EF and normal valves. A 06/14/22 MRI spine showed extensive postsurgical changes of lumbosacral spine with evidence of paraspinal enhancement and bilateral abscesses with likely component of osteomyelitis at L1. On 06/18 exchange of right sided drain was requested due to minimal output. CT abdomen pelvis with contrast on 06/25/22 showed that the bilateral psoas collections had much improved measuring approximately 1.9 cm. Daptomycin was discontinued on 06/01 secondary to elevated CPK. He was treated with IV vancomycin and aztreonam throughout his admission. He was evaluated by ID who recommended antibiotics through 07/14/22 and repeat MRI after completion of antibiotics. The patient left AMA on 07/05/2022. Culture results are not available in review of available information in EMR but per report by primary team, cultures at [facility] were sterile. Approximately 1 week post AMA discharge, he was brought to [facility] on 07/11/22 by his niece. He was found altered, disheveled in a hotel and there was concern that he could not take care of himself. A Utox on that admission was positive for amphetamine, MDMA, benzos and cocaine. A lumbar spine MRi on 07/12/22 showed decrease in size of the bilateral psoas abscesses when compared to MRI study from 05/31/22. The L1-L2 discitis and osteomyelitis was unchanged. There was some concern however that the size of the psoas collections has increased in size from imaging results at [facility] off of antibiotics (1.9 cm vs 2.2 x 1.6cm) He was again transferred to [facility] on 07/13/22 for reevaluation of worsening infection and need for neurosurgical intervention. He was started on Aztreonam and vancomycin. A Lumbar spine MRI done at [facility] on 07/14/22 showed improved focal right and left psoas abscesses,persistent anterior and bilateral paraspinal phlegmonous changes extending from L1-L2 disc space and over the L2 vertebral body segment He was evaluated by Neurosurgery, Interventional Radiology and Infectious Disease. No surgical intervention was deemed necessary by Neurosurgery; IR felt his abscesses were not large enough for intervention; [facility] recommended that he complete Vancomycin and Aztreonam for 4 weeks ( approximate end date 08/11/22) with ID follow up in 3 weeks post discharge. He unfortunately again left AMA on 07/23/22. He was discharged on oral Levaquin and Doxycycline to co mplete a 4 week course as a suboptimal option in setting of leaving AMA. He returns to [facility] 3 days after this AMA discharge on 07/26/22 with worsening back pain and leg weakness. He reports taking Doxycyclinea nd Levaquin but admits to missing doses. He reports that the kenya pain is severe enough that " he blacked out". He reports self medicating with unknown substances. He is currently living in a hotel. He denies fever, chills, nausea, vomiting, change in urine or bowel habits. On admission he is afebrile. He is relatively stable hemodynamically except for hypertension. Labs ar noted for a WBc 13.84, ESR 32 CRP 0.58. A lumbar MRi done on 07/26/22 re-demonstrated findings of discitis osteomyelitis at L1-L2, unchanged severe canal stenosis at L1-L2.and interval continued decrease in size in bilateral psoas abscesses. He recieved a dose of Daptomycin and Cefepime. He is currently on Aztreonam and Vancomycin. ID consulted for evaluation of Lumbar osteomyelitis and psoas abscess. Allergies Allergy/AdvReac Type Severity Reaction Status Date / Time gabapentin Allergy Severe SHORT OF Verified 07/26/22 16:44 BREATH cat dander Allergy Intermediate itchy Verified 07/26/22 16:44 eyes, sneezing codeine AdvReac Intermediate GI upset Verified 07/26/22 16:44 Home Medications Medication Instructions Recorded Confirmed Type cyclobenzaprine 10 mg tablet 10 mg PO BID PRN muscle spasm #60 03/13/22 07/26/22 Rx tabs trazodone 50 mg tablet 50 mg PO HS #30 tabs 04/10/22 07/26/22 Rx tramadol 50 mg tablet 50 mg PO .Q4-6H PRN pain, moderate 07/10/22 07/26/22 Rx #35 tabs doxycycline hyclate 100 mg capsule 100 mg PO BID 07/26/22 07/26/22 History levofloxacin 750 mg tablet 750 mg PO DAILY 07/26/22 07/26/22 History Patient History Medical History Blood loss anemia Diastolic dysfunction Hyperglycemia Hypertension LVH (left ventricular hypertrophy) LVH (left ventricular hypertrophy) severe Obesity Osteoarthritis Polysubstance use disorder Rib fracture left sided, remotely, healed without intervention- does have residual pain over area Rib pain on left side Surgical History History of arthroscopy of shoulder left History of back surgery x5 total History of knee replacement right S/P TKR (total knee replacement) Family History Denies family history of Ovarian cancer Prostate cancer Myocardial infarction Breast cancer Colorectal cancer Social History Smoking Status: Current every day smoker Tobacco Type: Cigarettes Second Hand Exposure: No; Hx Alcohol Use: No Hx Substance Use: Yes Prescribed Medications: Marijuana Last Used Substance: Days (ago) Last Used Substance Other:: "snorted some white powder a friend gave me" Preferred Language: Luxembourgish Communication Ability: Effective 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 Beliefs That Will Affect Care: None marital status: Single Current Living Situation: Alone Current Living Situation Comment: pt states that he moves throughout multiple motel locations current occupational status: unemployed Feels Safe at Home: Yes Dental Care, Regularly: No Physical Activity Frequency: Does not Exercise Seatbelt Use: always Assistive Devices: Walker Physical Exam Physical Exam: Econsult done Results & Data ([facility]) Vital Signs (Past 12 Hours) Vital Signs Temp Pulse Resp BP Pulse Ox O2 Del Method 07/27/22 07:39 37.1 C 89 18 162/87 H 99 Room Air Laboratory Results Laboratory Results - last 48 hr 07/26/22 07/26/22 07/26/22 13:31 13:31 13:31 WBC 13.84 H RBC 3.72 L Hgb 9.7 L Hct 29.5 L MCV 79.3 L MCH 26.1 MCHC 32.9 RDW Std Deviation 41.5 RDW Coeff of Adele 14.4 Plt Count 540 H MPV 8.5 L Immature Gran % (Auto) 0.5 Neut % (Auto) 74.9 Lymph % (Auto) 17.1 [place] % (Auto) 6.8 Eos % (Auto) 0.0 Baso % (Auto) 0.7 Neut # (Auto) 10.37 H Lymph # (Auto) 2.37 [place] # (Auto) 0.94 H Eos # (Auto) 0.00 Baso # (Auto) 0.09 Immature Gran # (Auto) 0.07 H ESR Sodium 134 L Potassium 3.3 L Chloride 105 Carbon Dioxide 19 L Anion Gap 10 BUN 19 Creatinine 0.70 Est Cr Clr Drug Dosing Not Reportable Est GFR ( Amer) 116.4 Est GFR (Non-Af Amer) 100.4 BUN/Creatinine Ratio 27.1 H Glucose 92 Lactate Calcium 8.8 Phosphorus Magnesium 1.8 Iron TIBC Unsaturated IBC Transferrin % Sat Ferritin Total Bilirubin 0.2 AST 21 ALT 34 Alkaline Phosphatase 107 H Total Creatine Kinase C-Reactive Protein Total Protein 7.1 Albumin 3.6 Globulin 3.5 Albumin/Globulin Ratio 1.0 Procalcitonin Urine Color Urine Appearance Urine pH Ur Specific Kinz[place] Urine Protein Urine Glucose (UA) Urine Ketones Urine Blood Urine Nitrite Urine Bilirubin Urine Urobilinogen Ur Leukocyte Esterase Urine Opiates Screen Ur Methadone, Qual Urine Barbiturates Ur Phencyclidine (PCP) U Amphetamin/Meth Scrn MDMA (Ecstasy) Screen U Benzodiazepines Scrn Ur Cocaine Metabolite U Marijuana (THC) Screen SARS-CoV-2, RNA, NAAT 07/26/22 07/26/22 07/26/22 13:31 13:31 13:31 WBC RBC Hgb Hct MCV MCH MCHC RDW Std Deviation RDW Coeff of Adele Plt Count MPV Immature Gran % (Auto) Neut % (Auto) Lymph % (Auto) [place] % (Auto) Eos % (Auto) Baso % (Auto) Neut # (Auto) Lymph # (Auto) [place] # (Auto) Eos # (Auto) Baso # (Auto) Immature Gran # (Auto) ESR 32 H Sodium Potassium Chloride Carbon Dioxide Anion Gap BUN Creatinine Est Cr Clr Drug Dosing Est GFR ( Amer) Est GFR (Non-Af Amer) BUN/Creatinine Ratio Glucose Lactate Calcium Phosphorus 3.9 Magnesium Cancelled Iron TIBC Unsaturated IBC Transferrin % Sat Ferritin Total Bilirubin AST ALT Alkaline Phosphatase Total Creatine Kinase C-Reactive Protein 0.58 H Total Protein Albumin Globulin Albumin/Globulin Ratio Procalcitonin < 0.05 Urine Color Urine Appearance Urine pH Ur Specific [place] Urine Protein Urine Glucose (UA) Urine Ketones Urine Blood Urine Nitrite Urine Bilirubin Urine Urobilinogen Ur Leukocyte Esterase Urine Opiates Screen Ur Methadone, Qual Urine Barbiturates Ur Phencyclidine (PCP) U Amphetamin/Meth Scrn MDMA (Ecstasy) Screen U Benzodiazepines Scrn Ur Cocaine Metabolite U Marijuana (THC) Screen SARS-CoV-2, RNA, NAAT 07/26/22 07/26/22 07/26/22 15:52 15:58 16:55 WBC RBC Hgb Hct MCV MCH MCHC RDW Std Deviation RDW Coeff of Adele Plt Count MPV Immature Gran % (Auto) Neut % (Auto) Lymph % (Auto) [place] % (Auto) Eos % (Auto) Baso % (Auto) Neut # (Auto) Lymph # (Auto) [place] # (Auto) Eos # (Auto) Baso # (Auto) Immature Gran # (Auto) ESR Sodium Potassium Chloride Carbon Dioxide Anion Gap BUN Creatinine Est Cr Clr Drug Dosing Est GFR ( Amer) Est GFR (Non-Af Amer) BUN/Creatinine Ratio Glucose Lactate 1.2 Calcium Phosphorus Magnesium Iron TIBC Unsaturated IBC Transferrin % Sat Ferritin Total Bilirubin AST ALT Alkaline Phosphatase Total Creatine Kinase C-Reactive Protein Total Protein Albumin Globulin Albumin/Globulin Ratio Procalcitonin Urine Color Yellow Urine Appearance Clear Urine pH 6.0 Ur Specific Kin[place] 1.011 Urine Protein Negative Urine Glucose (UA) Negative Urine Ketones Negative Urine Blood Negative Urine Nitrite Negative Urine Bilirubin Negative Urine Urobilinogen Negative Ur Leukocyte Esterase Negative Urine Opiates Screen Ur Methadone, Qual Urine Barbiturates Ur Phencyclidine (PCP) U Amphetamin/Meth Scrn MDMA (Ecstasy) Screen U Benzodiazepines Scrn Ur Cocaine Metabolite U Marijuana (THC) Screen SARS-CoV-2, RNA, NAAT NEGATIVE 07/26/22 07/27/22 07/27/22 16:55 07:30 07:30 WBC 11.08 H RBC 3.49 L Hgb 9.0 L Hct 28.9 L MCV 82.8 MCH 25.8 MCHC 31.1 L RDW Std Deviation 43.8 RDW Coeff of Adele 14.6 H Plt Count 483 H MPV 8.4 L Immature Gran % (Auto) Neut % (Auto) Lymph % (Auto) [place] % (Auto) Eos % (Auto) Baso % (Auto) Neut # (Auto) Lymph # (Auto) [place] # (Auto) Eos # (Auto) Baso # (Auto) Immature Gran # (Auto) ESR Sodium Cancelled Potassium Cancelled Chloride Cancelled Carbon Dioxide Cancelled Anion Gap Cancelled BUN Cancelled Creatinine Cancelled Est Cr Clr Drug Dosing Cancelled Est GFR ( Amer) Cancelled Est GFR (Non-Af Amer) Cancelled BUN/Creatinine Ratio Cancelled Glucose Cancelled Lactate Calcium Cancelled Phosphorus Magnesium Iron TIBC Unsaturated IBC Transferrin % Sat Ferritin Total Bilirubin AST ALT Alkaline Phosphatase Total Creatine Kinase C-Reactive Protein Total Protein Albumin Globulin Albumin/Globulin Ratio Procalcitonin Urine Color Urine Appearance Urine pH Ur Specific [place] Urine Protein Urine Glucose (UA) Urine Ketones Urine Blood Urine Nitrite Urine Bilirubin Urine Urobilinogen Ur Leukocyte Esterase Urine Opiates Screen Pos H Ur Methadone, Qual Neg Urine Barbiturates Neg Ur Phencyclidine (PCP) Neg U Amphetamin/Meth Scrn Neg MDMA (Ecstasy) Screen Neg U Benzodiazepines Scrn Neg Ur Cocaine Metabolite Neg U Marijuana (THC) Screen Neg SARS-CoV-2, RNA, NAAT 07/27/22 07:37 WBC RBC Hgb Hct MCV MCH MCHC RDW Std Deviation RDW Coeff of Adele Plt Count MPV Immature Gran % (Auto) Neut % (Auto) Lymph % (Auto) [place] % (Auto) Eos % (Auto) Baso % (Auto) Neut # (Auto) Lymph # (Auto) [place] # (Auto) Eos # (Auto) Baso # (Auto) Immature Gran # (Auto) ESR Sodium 137 Potassium 4.1 D Chloride 110 H Carbon Dioxide 22 Anion Gap 5 BUN 16 Creatinine 0.67 Est Cr Clr Drug Dosing 98.2 Est GFR ( Amer) 118.5 Est GFR (Non-Af Amer) 102.3 BUN/Creatinine Ratio 23.9 H Glucose 100 H Lactate Calcium 8.8 Phosphorus Magnesium 2.0 Iron 24 L TIBC 373 Unsaturated IBC 349 Transferrin % Sat 6 L Ferritin 29.8 Total Bilirubin AST ALT Alkaline Phosphatase Total Creatine Kinase 91 C-Reactive Protein Total Protein Albumin Globulin Albumin/Globulin Ratio Procalcitonin Urine Color Urine Appearance Urine pH Ur Specific [place] Urine Protein Urine Glucose (UA) Urine Ketones Urine Blood Urine Nitrite Urine Bilirubin Urine Urobilinogen Ur Leukocyte Esterase Urine Opiates Screen Ur Methadone, Qual Urine Barbiturates Ur Phencyclidine (PCP) U Amphetamin/Meth Scrn MDMA (Ecstasy) Screen U Benzodiazepines Scrn Ur Cocaine Metabolite U Marijuana (THC) Screen SARS-CoV-2, RNA, NAAT Diagnostic Findings Microbiology 07/26/22 16:55 Blood Aerobic Blood Culture - Preliminary No growth in Aerobic bottle after 24 hours. 07/26/22 16:55 Blood Anaerobic Blood Culture - Preliminary No growth in Anaerobic bottle after 24 hours. 07/26/22 15:52 Blood Aerobic Blood Culture - Preliminary No growth in Aerobic bottle after 24 hours. 07/26/22 15:52 Blood Anaerobic Blood Culture - Preliminary No growth in Anaerobic bottle after 24 hours. Lumbar Spine MRI 07/26/22 15:29 MR lumbar spine wo/w con CLINICAL HISTORY: psoas absess and discitis history TECHNIQUE: 3 plane localizer images, sagittal T2, sagittal T1, sagittal STIR, axial T1, axial T2 along with postcontrast axial T1 and sagittal T1 fat- saturated sequences were obtained of the lumbar spine, before and after intravenous administration of 12 mL of MultiHance. Comparison: Comparison is made to MRI lumbar spine 07/12/2022 FINDINGS: Exam is limited by patient motion and streak artifact from posterior fixation hardware as well as hardware from left sacroiliac fusion. Again noted is fluid signal in the L1 vertebral body and L1-L2 disc space. There is associated decreased T1 signal. Within the limits of susceptibility artifact, severe canal stenosis is again noted at L1-L2. The previously noted bilateral psoas lesions are again decreased in size, previously measured 22 mm on the right and 11 mm in the left, now measure 18 mm in the right and 7 mm on the left. IMPRESSION: 1. 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 Severe canal stenosis is again noted at L1-L2. 2. Interval continued decrease in size in bilateral psoas abscesses. Medications Administered Home Medications Medication Instructions Recorded Confirmed Last Taken cyclobenzaprine 10 mg tablet 10 mg PO BID PRN muscle spasm #60 03/13/22 07/26/22 Unknown tabs trazodone 50 mg tablet 50 mg PO HS #30 tabs 04/10/22 07/26/22 Unknown tramadol 50 mg tablet 50 mg PO .Q4-6H PRN pain, moderate 07/10/22 07/26/22 Unknown #35 tabs doxycycline hyclate 100 mg capsule 100 mg PO BID 07/26/22 07/26/22 Unknown levofloxacin 750 mg tablet 750 mg PO DAILY 07/26/22 07/26/22 Unknown Active Medications Generic Name Dose Route Start Last Admin Trade Name Freq PRN Reason Stop Dose Admin Acetaminophen 650 mg 07/26/22 22:52 07/27/22 04:41 Acetaminophen 325 Mg Tab PO 08/25/22 22:51 650 mg Q4H PRN Administration pain/fever Aztreonam 1,000 mg/ Dextrose 110 mls @ 100 mls/hr 07/26/22 23:00 07/27/22 17:31 IV 09/06/22 22:59 100 mls/hr Q8H CHIARA Administration Protocol Vancomycin HCl 1,250 mg/ 275 mls @ 200 mls/hr 07/27/22 08:00 07/27/22 14:03 Sodium Chloride IV 09/07/22 07:59 Infused Q12H CHIARA Infusion Ketorolac Tromethamine 15 mg 07/26/22 22:52 07/27/22 13:56 Ketorolac Tromethamine 15 Mg/Ml Vial IV 07/31/22 22:51 15 mg Q6H PRN Administration Pain Metoprolol Tartrate 12.5 mg 07/27/22 09:00 07/27/22 09:00 Metoprolol Tartrate 25 Mg Tab PO 08/26/22 08:59 12.5 mg QAM CHIARA Administration Miscellaneous 1 each 07/27/22 08:59 07/27/22 09:01 Remove Nicoderm Patch N/A 08/26/22 08:58 1 each [id number] CHIARA Administration Nicotine 21 mg 07/26/22 22:00 07/27/22 08:58 Nicotine 21 Mg/24 Hr Tdsy TD 08/25/22 21:59 21 mg QAM CHIARA Administration Tramadol HCl 100 mg 07/27/22 17:51 07/27/22 18:03 Tramadol Hcl 50 Mg Tablet PO 08/26/22 17:44 100 mg Q8H PRN Administration pain moderate (1) Lower back pain Back pain laterality: midline Chronicity: chronic Sciatica presence: without sciatica Qualified Code(s): M54.50 - Low back pain, unspecified; G89.29 - Other chronic pain (2) Leukocytosis Leukocytosis type: unspecified Qualified Code(s): D72.829 - Elevated white blood cell count, unspecified
[2022-07-27] MEDS ORDERED: cloNIDine HCL 0.1 MG TAB PO PRN (17:03)
[2022-07-27] MEDS ORDERED: traMADol HCL 50 MG TABLET PO SCH (17:45)
[2022-07-27] MEDS: traMADol HCL 50 MG TABLET PO PRN (18:03)
[2022-07-27] MEDS: traZODone HCL 50 MG TAB PO SCH (20:28)
[2022-07-28] MEDS: AZTREONAM 1,000 MG in DEXTROSE 5% 100 ML IV SCH ×3 (00:52→15:51)
[2022-07-28] MEDS: traMADol HCL 50 MG TABLET PO PRN ×2 (03:51→15:54)
[2022-07-28] MEDS: KETOROLAC TROMETHAMINE 15 MG/ML VIAL IV PRN ×3 (06:19→21:20)
[2022-07-28] MEDS: ENOXAPARIN INJ 40 MG/0.4 ML SYR SQ SCH (08:00)
[2022-07-28] MEDS: VANCOMYCIN HCL 1,250 MG in SODIUM CHLORIDE 0.9% 250 ML IV SCH (08:00)
[2022-07-28] MEDS: METOPROLOL TARTRATE 25 MG TAB PO SCH (08:01)
[2022-07-28] MEDS: NICOTINE 21 MG/24 HR TDSY TD SCH (08:01)
[2022-07-28 08:25] LABS: Creatinine Clr Calc Pharmacy 115.4 ml/min; Est GFR (African American) 126.7 ml/min; Est GFR (Non-African American) 109.3 ml/min
--- NOTE | 2022-07-28 08:27 | Hospitalist Progress Note ---
Date of Service July 28, 2022 Assessment & Plan (1) Discitis: Plan: 62yo male history of known discitis, osteomyelitis and phlegmon. Findings re demonstrated on imaging on intake initial review of images suggest interval improvement. Neurosurgery contacted by ER physician - no intervention recommended at this time. He has had partial antibiotic treatment - complicated due to multiple hospitalizations, leaving [place] several times and most recently likely medication non-adherence with home regimen of Doxycycline and Levofloxacin. Patient is neurologically intact with no deficits appreciated on exam. He is afebrile, HD stable and nontoxic in appearance. Blood cultures are negative to date Difficult management decisions - would be very cautious with placing a PICC line for purpose of antibiotic infusion as patient has history of polysubstance abuse (possible intranasal heroine use most recently?), unstable living situation. Will treat with IV antibiotics while inpatient, ?continuation of PO antibiotics Doxycycline and Levaquin on discharge? Procalcitonin -Follow blood cultures sent from ER -Vancomycin 1gm IV BID, adjustment per pharmacy protocol -Aztreonam 2gm IV q 8 hours -ID consultation appreciated -Continue Cyclobenzaprine PRN -Continue Tramadol PRN -Toradol 15mg IV q 6 hours PRN -Avoid IV opiates if possible -ID recommendations If there is no plan for surgical intervention, he can continue IV vancomycin and Aztreonam for 4 weeks as recommended by [facility] prior to his AMA discharge on 07/23. He missed 3 days of IV abx prior to this readmission. Plan to complete therapy on 08/14 with ID follow up as scheduled. He will likely need suppressive PO abx therapy after completion of IV abx in the setting or retained spinal hardware. IF he leaves [place], would disicharge on oral doxycycline and levaquin (levaquin if qtc < 500). Follow up BC. Would obtain all cultures from previous admission at [facility] and scan in system. (2) Psoas abscess: Plan: Reduced in size. Per review of records, sterile aspirate from [place] -Treatment with IV Vancomycin and Aztreonam -ID followup in 3 weeks recommended (3) Polysubstance use disorder: Plan: Noted. Encourage cessation (4) HTN (hypertension): Plan: Elevated presently at 164/77. Patient does not take any medications for blood pressure at present Code - Full Admission and Anticipated Discharge Date Admission Date: July 26, 2022 Subjective Patient is improved pain control with tramadol was having some muscle spasm and requesting muscle relaxant which we will use tizanidine. Patient is agreeable to be considered for rehab given his leg weakness and difficulty with ambulating. Otherwise has had no complaints or problems reportedly eating well moving his bowels and urine without issues Review of Systems Review of Systems: Moderate distress and fatigue no headache, no visual changes no speech or swallowing issues no chest pain, pressure or palpitations no shortness of breath, cough or wheezes no abdominal pain, nausea or vomiting, diarrhea or constipation no dysuria, hematuria or frequency no focal joint pain or swelling Patient has bilateral hip and back pain radiating across his back without radicular pain down his leg this has improved since tramadol was initiated no bruising, there is a small rash on his posterior right hip with keeping an eye on no focal signs of weakness or numbness or altered sensation no complaints of anxiety or depression.. Physical Exam Physical Exam: The patient appeared well nourished and normally developed. He appears chronically ill Vital signs as documented. Head exam is normocephalic atraumatic Neck is without JVD, thyromegaly, or carotid bruits. Lungs are clear to auscultation, no focal loss of breath sounds Cardiac exam, Rhythm is regular.. No murmurs, rubs or gallops. 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 Results & Data Results & Data ([facility]) Vital Signs (Past 12 Hours) Vital Signs Temp Pulse Resp BP BP Pulse Ox O2 Del Method 07/28/22 07:23 Room Air 07/28/22 07:20 98.4 F 94 H 18 166/75 H 97 Room Air 07/27/22 21:57 98.6 F 94 H 18 156/89 H 96 Room Air 07/27/22 20:30 Room Air PG Care Time/CCT Total # of Minutes Spent Total Time Spent with Patient: Total time spent is greater than 50% in coordination of care (as documented) at patient's floor/unit and/or counseling patient: Coding Level of Care Code 26720 Subseq Hosp Care Lvl 2 Diagnoses Discitis M46.46 Spinal region: lumbar Psoas abscess K68.12 Polysubstance use disorder F19.90 HTN (hypertension) I10 (1) Discitis Spinal region: lumbar Qualified Code(s): M46.46 - Discitis, unspecified, lumbar region
[2022-07-28] MEDS: tiZANidine HCL 4 MG TABLET PO PRN ×2 (10:07→17:06)
--- NOTE | 2022-07-28 17:12 | Pharmacy Report ---
Pharmacy PK ABX Note - Date of Service July 28, 2022 - Assessment and Plan Assessment 07/28/22: * Random level drawn today at 1400 rendered a random level of 18.1 * Patient's renal function has improved in past 24 hours; estimated CrCl improved from 98 ml/min to 115 ml/min. * WBC count downtrending since initiation of vancomycin and aztreonam. 07/27/22: * Mr Camacho is a 62 year old M receiving vancomycin + aztreonam for treatment of discitis. * Pt with a complicated history. See H&P for additional information. * Since his last discharge from a hospital, he was prescribed PO doxycycline and levofloxacin, however, pt's compliance with med administration is questionable. * ID consulted; awaiting recommendations. Plan Vancomycin 07/28/22: * Maintenance dose increased to 1500 mg IV every 12 hours, starting tonight at 2000. * Another random drug level has been ordered following the 4th dose of this new strength, scheduled for 07/30 at 1400. 07/27/22: * Loading dose: 1750 mg IV x 1 * Maintenance dose: 1250 mg IV every 12 hours * Regimen is predicted to achieve target AUC/FRANCISCO of 400-600 mg/L.hr Pharmacy will continue to follow and will adjust dose/frequency as necessary. Thank you. Pharmacy has transitioned to AUC monitoring for vancomycin. AUC/FRANCISCO is the preferred PK/PD target and is associated with decreased risk of nephrotoxicity compared to traditional trough targets.
[2022-07-28] MEDS: VANCOMYCIN HCL 1,500 MG in SODIUM CHLORIDE 0.9% 500 ML IV SCH (21:20)
[2022-07-28] MEDS: traZODone HCL 50 MG TAB PO SCH (21:20)
[2022-07-29] MEDS: AZTREONAM 1,000 MG in DEXTROSE 5% 100 ML IV SCH ×4 (00:54→23:28)
[2022-07-29] MEDS: tiZANidine HCL 4 MG TABLET PO PRN ×2 (01:04→15:03)
[2022-07-29] MEDS: traMADol HCL 50 MG TABLET PO PRN ×3 (01:05→22:35)
[2022-07-29 07:21] LABS: Codeine Urine NEGATIVE ng/mL (<50); Hydrocodone Urine NEGATIVE ng/mL (<50); Hydromor Urine NEGATIVE ng/mL (<50); Morphine Urine 1520 ng/mL (<50); Norhydrocodone Conf Ur NEGATIVE ng/mL (<50); Noroxycodone Urine NEGATIVE ng/mL (<50); Oxycodone Urine NEGATIVE ng/mL (<50); Oxymorph Urine NEGATIVE ng/mL (<50)
[2022-07-29] MEDS: KETOROLAC TROMETHAMINE 15 MG/ML VIAL IV PRN ×2 (07:47→17:31)
[2022-07-29] MEDS: ENOXAPARIN INJ 40 MG/0.4 ML SYR SQ SCH (08:00)
[2022-07-29] MEDS: METOPROLOL TARTRATE 25 MG TAB PO SCH (08:00)
[2022-07-29] MEDS: NICOTINE 21 MG/24 HR TDSY TD SCH (08:01)
[2022-07-29] MEDS: VANCOMYCIN HCL 1,500 MG in SODIUM CHLORIDE 0.9% 500 ML IV SCH ×2 (09:10→20:28)
--- NOTE | 2022-07-29 14:20 | Hospitalist Progress Note ---
Date of Service July 29, 2022 Assessment & Plan (1) Discitis: Plan: 62yo male history of known discitis, osteomyelitis and phlegmon. Findings re demonstrated on imaging on intake initial review of images suggest interval improvement. Neurosurgery contacted by ER physician - no intervention recommended at this time. He has had partial antibiotic treatment - complicated due to multiple hospitalizations, leaving [place] several times and most recently likely medication non-adherence with home regimen of Doxycycline and Levofloxacin. Patient is neurologically intact with no deficits appreciated on exam. He is afebrile, HD stable and nontoxic in appearance. Blood cultures are negative to date Difficult management decisions - would be very cautious with placing a PICC line for purpose of antibiotic infusion as patient has history of polysubstance abuse (possible intranasal heroine use most recently?), unstable living situation. Will treat with IV antibiotics while inpatient, ?continuation of PO antibiotics Doxycycline and Levaquin on discharge? Procalcitonin -Follow blood cultures sent from ER -Vancomycin 1gm IV BID, adjustment per pharmacy protocol -Aztreonam 2gm IV q 8 hours -ID consultation appreciated -Continue Cyclobenzaprine PRN -Continue Tramadol PRN -Toradol 15mg IV q 6 hours PRN -Avoid IV opiates if possible -ID recommendations If there is no plan for surgical intervention, he can continue IV vancomycin and Aztreonam [facility]. He missed 3 days of IV abx prior to this readmission. Plan to complete therapy on 08/14 with ID follow up as scheduled. He will likely need suppressive PO abx therapy after completion of IV abx in the setting or retained spinal hardware. IF he leaves [place], would disicharge on oral doxycycline and levaquin (levaquin if qtc < 500). Follow up BC. Would obtain all cultures from previous admission at [facility] and scan in system. (2) Psoas abscess: Plan: Reduced in size. Per review of records, sterile aspirate from [place] -Treatment with IV Vancomycin and Aztreonam -ID followup in 3 weeks recommended (3) Polysubstance use disorder: Plan: Noted. Encourage cessation (4) HTN (hypertension): Plan: Elevated presently at 164/77. Patient does not take any medications for blood pressure at present Code - Full Admission and Anticipated Discharge Date Admission Date: July 26, 2022 Subjective pt is improving still with pain and leg weakness, cannot walk affectively, continues on iv antibiotics Review of Systems Review of Systems: Moderate distress and fatigue no headache, no visual changes no speech or swallowing issues no chest pain, pressure or palpitations no shortness of breath, cough or wheezes no abdominal pain, nausea or vomiting, diarrhea or constipation no dysuria, hematuria or frequency no focal joint pain or swelling Patient has bilateral hip and back pain radiating across his back without radicular pain down his leg this has improved since tramadol was initiated no bruising, there is a small rash on his posterior right hip with keeping an eye on no focal signs of weakness or numbness or altered sensation no complaints of anxiety or depression.. Physical Exam Physical Exam: The patient appeared well nourished and normally developed. He appears chronically ill Vital signs as documented. Head exam is normocephalic atraumatic Neck is without JVD, thyromegaly, or carotid bruits. Lungs are clear to auscultation, no focal loss of breath sounds Cardiac exam, Rhythm is regular.. No murmurs, rubs or gallops. 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 Results & Data Results & Data ([facility]) Vital Signs (Past 12 Hours) Vital Signs Temp Pulse Resp BP Pulse Ox O2 Del Method 07/29/22 07:06 98.2 F 85 20 156/83 H 95 Room Air PG Care Time/CCT Total # of Minutes Spent Total Time Spent with Patient: Total time spent is greater than 50% in coordination of care (as documented) at patient's floor/unit and/or counseling patient: Coding Level of Care Code 26712 Subseq Hosp Care Lvl 3 Diagnoses Discitis M46.46 Spinal region: lumbar Psoas abscess K68.12 Polysubstance use disorder F19.90 HTN (hypertension) I10 (1) Discitis Spinal region: lumbar Qualified Code(s): M46.46 - Discitis, unspecified, lumbar region
[2022-07-29] MEDS: traZODone HCL 50 MG TAB PO SCH (20:31)
[2022-07-30] MEDS: tiZANidine HCL 4 MG TABLET PO PRN ×2 (00:33→22:20)
[2022-07-30] MEDS: KETOROLAC TROMETHAMINE 15 MG/ML VIAL IV PRN ×3 (03:16→20:02)
[2022-07-30] MEDS: traMADol HCL 50 MG TABLET PO PRN ×2 (07:39→16:42)
[2022-07-30] MEDS: AZTREONAM 1,000 MG in DEXTROSE 5% 100 ML IV SCH ×3 (07:40→23:30)
[2022-07-30] MEDS: VANCOMYCIN HCL 1,500 MG in SODIUM CHLORIDE 0.9% 500 ML IV SCH ×2 (08:52→20:03)
[2022-07-30] MEDS: ENOXAPARIN INJ 40 MG/0.4 ML SYR SQ SCH (08:55)
[2022-07-30] MEDS: NICOTINE 21 MG/24 HR TDSY TD SCH (08:55)
[2022-07-30] MEDS: METOPROLOL SUCC 25MG EXT REL TAB PO SCH (08:58)
--- NOTE | 2022-07-30 15:16 | Pharmacy Report ---
Pharmacy PK ABX Note - Date of Service July 30, 2022 - Assessment and Plan Assessment 07/30/22: * Patient is refusing lab draw today and thus unable to evaluate a vanc level today. Provider was made aware. I will reorder a random level for tomorrow morning to be batched with AM labs. 07/28/22: * Random level drawn today at 1400 rendered a random level of 18.1 * Patient's renal function has improved in past 24 hours; estimated CrCl improved from 98 ml/min to 115 ml/min. * WBC count downtrending since initiation of vancomycin and aztreonam. 07/27/22: * Mr Camacho is a 62 year old M receiving vancomycin + aztreonam for treatment of discitis. * Pt with a complicated history. See H&P for additional information. * Since his last discharge from a hospital, he was prescribed PO doxycycline and levofloxacin, however, pt's compliance with med administration is questionable. * ID consulted; awaiting recommendations. Plan Vancomycin 07/30/22: * Continue current dose of 1500 mg IV q12h which is predicted to achieve target AUC/FRANCISCO of 400-600 mg/L.hr 07/28/22: * Maintenance dose increased to 1500 mg IV every 12 hours, starting tonight at 2000. * Another random drug level has been ordered following the 4th dose of this new strength, scheduled for 07/30 at 1400. 07/27/22: * Maintenance dose: 1250 mg IV every 12 hours * Regimen is predicted to achieve target AUC/FRANCISCO of 400-600 mg/L.hr Pharmacy will continue to follow and will adjust dose/frequency as necessary. Thank you. Pharmacy has transitioned to AUC monitoring for vancomycin. AUC/FRANCISCO is the preferred PK/PD target and is associated with decreased risk of nephrotoxicity compared to traditional trough targets.
--- NOTE | 2022-07-30 17:36 | Hospitalist Progress Note ---
Date of Service July 30, 2022 Assessment & Plan (1) Discitis: Plan: 62yo male history of known discitis, osteomyelitis and phlegmon. Findings re demonstrated on imaging on intake initial review of images suggest interval improvement. Neurosurgery contacted by ER physician - no intervention recommended at this time. He has had partial antibiotic treatment - complicated due to multiple hospitalizations, leaving [place] several times and most recently likely medication non-adherence with home regimen of Doxycycline and Levofloxacin. Patient is neurologically intact with no deficits appreciated on exam. He is afebrile, HD stable and nontoxic in appearance. Blood cultures are negative to date Difficult management decisions - would be very cautious with placing a PICC line for purpose of antibiotic infusion as patient has history of polysubstance abuse (possible intranasal heroine use most recently?), unstable living situation. Will treat with IV antibiotics while inpatient, ?continuation of PO antibiotics Doxycycline and Levaquin on discharge? Procalcitonin -Follow blood cultures sent from ER -Vancomycin 1gm IV BID, adjustment per pharmacy protocol -Aztreonam 2gm IV q 8 hours -ID consultation appreciated -Continue Cyclobenzaprine PRN -Continue Tramadol PRN -Toradol 15mg IV q 6 hours PRN -Avoid IV opiates if possible -ID recommendations If there is no plan for surgical intervention, he can continue IV vancomycin and Aztreonam for 4 weeks as recommended by [facility] prior to his AMA discharge on 07/23. He missed 3 days of IV abx prior to this readmission. Plan to complete therapy on 08/14 with ID follow up as scheduled. He will likely need suppressive PO abx therapy after completion of IV abx in the setting or retained spinal hardware. IF he leaves [place], would disicharge on oral doxycycline and levaquin (levaquin if qtc < 500). Follow up BC.try to obtain all cultures from previous admission at [facility] and scan in system. (2) Psoas abscess: Plan: Reduced in size. Per review of records, sterile aspirate from [place] -Treatment with IV Vancomycin and Aztreonam -ID followup in 3 weeks recommended (3) Polysubstance use disorder: Plan: Noted. Encourage cessation (4) HTN (hypertension): Plan: Elevated presently at 164/77. Patient does not take any medications for blood pressure at home maybe situational Code - Full Admission and Anticipated Discharge Date Admission Date: July 26, 2022 Subjective pt is improving still with pain and leg weakness, cannot walk affectively, continues on iv antibiotics Review of Systems Review of Systems: Moderate distress and fatigue no headache, no visual changes no speech or swallowing issues no chest pain, pressure or palpitations no shortness of breath, cough or wheezes no abdominal pain, nausea or vomiting, diarrhea or constipation no dysuria, hematuria or frequency no focal joint pain or swelling Patient has bilateral hip and back pain radiating across his back without radicular pain down his leg this has improved since tramadol was initiated no bruising, there is a small rash on his posterior right hip with keeping an eye on no focal signs of weakness or numbness or altered sensation no complaints of anxiety or depression.. Physical Exam Physical Exam: The patient appeared well nourished and normally developed. He appears chronically ill Vital signs as documented. Head exam is normocephalic atraumatic Neck is without JVD, thyromegaly, or carotid bruits. Lungs are clear to auscultation, no focal loss of breath sounds Cardiac exam, Rhythm is regular.. No murmurs, rubs or gallops. 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 Results & Data Results & Data ([facility]) Vital Signs (Past 12 Hours) Vital Signs Temp Pulse Resp BP BP Pulse Ox O2 Del Method 07/30/22 16:39 98.8 F 97 H 18 155/73 H 97 Room Air 07/30/22 07:45 Room Air 07/30/22 07:09 98.8 F 90 18 170/95 H 97 Room Air PG Care Time/CCT Total # of Minutes Spent Total Time Spent with Patient: Total time spent is greater than 50% in coordination of care (as documented) at patient's floor/unit and/or counseling patient: Coding Level of Care Code 89106 Subseq Hosp Care Lvl 2 Diagnoses Discitis M46.46 Spinal region: lumbar Psoas abscess K68.12 Polysubstance use disorder F19.90 HTN (hypertension) I10 (1) Discitis Spinal region: lumbar Qualified Code(s): M46.46 - Discitis, unspecified, lumbar region
[2022-07-31] MEDS: traZODone HCL 50 MG TAB PO SCH ×2 (01:12→20:53)
[2022-07-31] MEDS: traMADol HCL 50 MG TABLET PO PRN ×3 (02:05→17:06)
[2022-07-31] MEDS ORDERED: VANCOMYCIN LEVEL ONE (04:44)
[2022-07-31] MEDS: KETOROLAC TROMETHAMINE 15 MG/ML VIAL IV PRN ×3 (07:46→20:47)
[2022-07-31] MEDS: AZTREONAM 1,000 MG in DEXTROSE 5% 100 ML IV SCH ×2 (07:46→15:52)
[2022-07-31] MEDS: METOPROLOL SUCC 25MG EXT REL TAB PO SCH (08:59)
[2022-07-31] MEDS: NICOTINE 21 MG/24 HR TDSY TD SCH (08:59)
[2022-07-31] MEDS: ENOXAPARIN INJ 40 MG/0.4 ML SYR SQ SCH (08:59)
[2022-07-31] MEDS: VANCOMYCIN HCL 1,500 MG in SODIUM CHLORIDE 0.9% 500 ML IV SCH ×2 (09:00→20:52)
[2022-07-31] MEDS: tiZANidine HCL 4 MG TABLET PO PRN (12:16)
[2022-07-31 12:55] LABS: Hematocrit (blood only) 28.4 % (40.1-51.0); Hemoglobin 9.3 g/dl (14.0-18.0); Mean Corpuscular Hemoglobin 26.6 pg (25.0-34.0); Mean Corpuscular Hgb Conc 32.7 g/dL (32.0-36.0); Mean Corpuscular Volume 81.1 fL (80.0-100.0); Mean Platelet Volume 8.7 fL (9.4-12.4); Nucleated RBC # (auto) 0.02 K/uL (0-0); Nucleated RBC % (auto) 0.2 %; Platelet Count 463 K/uL (130-400); RDW Coefficient of Variation 14.3 % (11.5-14.5); White Blood Count 10.56 K/ul (4.8-10.8)
[2022-07-31 12:56] LABS: BUN Creatinine Ratio 23.8 (10-20); C Reactive Protein 0.68 mg/dl (0-0.5); Calcium 9.3 mg/dl (8.5-10.1); Creatinine Clr Calc Pharmacy 104.4 ml/min; Est GFR (African American) 121.6 ml/min; Est GFR (Non-African American) 104.9 ml/min; Potassium 4.4 mmol/L (3.5-5.1)
--- NOTE | 2022-07-31 15:01 | Pharmacy Report ---
Pharmacy PK ABX Note - Date of Service July 31, 2022 - Assessment and Plan Assessment 07/31: * Lab level was not drawn until 12:11 and per RN was drawn at tail end of vanco infusion. Level reported as 29.3. This is still predicting within target AUC, however since ?vanc still infusing interpretation is clouded. Will ordered another level. 07/30/22: * Patient is refusing lab draw today and thus unable to evaluate a vanc level today. Provider was made aware. I will reorder a random level for tomorrow morning to be batched with AM labs. 07/28/22: * Random level drawn today at 1400 rendered a random level of 18.1 * Patient's renal function has improved in past 24 hours; estimated CrCl improved from 98 ml/min to 115 ml/min. * WBC count downtrending since initiation of vancomycin and aztreonam. 07/27/22: * Mr Camacho is a 62 year old M receiving vancomycin + aztreonam for treatment of discitis. * Pt with a complicated history. See H&P for additional information. * Since his last discharge from a hospital, he was prescribed PO doxycycline and levofloxacin, however, pt's compliance with med administration is questionable. * ID consulted; awaiting recommendations. Plan Vancomycin 07/30/22: * Continue current dose of 1500 mg IV q12h which is predicted to achieve target AUC/FRANCISCO of 400-600 mg/L.hr 07/28/22: * Maintenance dose increased to 1500 mg IV every 12 hours, starting tonight at 2000. * Another random drug level has been ordered following the 4th dose of this new strength, scheduled for 07/30 at 1400. 07/27/22: * Maintenance dose: 1250 mg IV every 12 hours * Regimen is predicted to achieve target AUC/FRANCISCO of 400-600 mg/L.hr Pharmacy will continue to follow and will adjust dose/frequency as necessary. Thank you. Pharmacy has transitioned to AUC monitoring for vancomycin. AUC/FRANCISCO is the preferred PK/PD target and is associated with decreased risk of nephrotoxicity compared to traditional trough targets.
--- NOTE | 2022-07-31 19:43 | Hospitalist Progress Note ---
Date of Service July 31, 2022 Assessment & Plan (1) Discitis: Plan: 62yo male history of known discitis/osteomyelitis at L1. Neurosurgery was contacted by ER physician at time of this admission - no intervention recommended at that time. He has had partial antibiotic treatment - complicated due to multiple hospitalizations, leaving [facility] several times and most recently likely medication non-adherence with home regimen of Doxycycline and Levofloxacin. He is afebrile, Blood cultures are negative to date Has history of polysubstance abuse (possible intranasal heroine use most recently?) and PICC line placement would not be ideal. Cont IV Vancomycin Cont Aztreonam 2gm IV q 8 hours ID consultation appreciated ID recommendations If there is no plan for surgical intervention, he can continue IV vancomycin and Aztreonam for 4 weeks as recommended by Amina BERG prior to his AMA discharge on 07/23/22. He missed 3 days of IV abx prior to this readmission. Plan to complete therapy on 08/14 with ID follow up as scheduled. He will likely need suppressive long-term PO abx therapy after completion of IV abx in the setting or retained spinal hardware. If he leaves AMA, would send out on oral doxycycline and levaquin. (2) Psoas abscess: Plan: Reduced in size per current MRI obtained this admission. By report psoas abscess I/D did not grow any specific pathogen. Cont IV Vancomycin and Aztreonam. ID followup in 3 weeks recommended by [facility] ID Connect. (3) Polysubstance use disorder: Plan: poor PICC line candidate (4) HTN (hypertension): Plan: BPs remain elevated Would increase metoprolol succinate to 50mg daily (5) Lumbar spinal stenosis: Plan: severe at L1-L2 during prior admission Dr Clarke had recommended surgical intervention at tertiary care center he remains quite weak in the RLE with hip flexion and has difficulty walking will reach out to Dr Clarke for his opinion (6) Lower back pain: Plan: cont toradol prn cont zanaflex prn increase tramadol to 100mg q6h prn Plan DVT proph - lovenox Admission and Anticipated Discharge Date Admission Date: July 26, 2022 Subjective continues with lumbar spine pain, b/l groin pain, and right leg weakness symptoms similar to a few days ago toradol DOES help back and leg pain asks for a muscle relaxant for pains no fevers eating well Review of Systems Review of Systems: gen - no fevers or chills cv - no chest pain pulm - no cough or dyspnea GI - no abd pain Physical Exam Physical Exam: gen - NAD neck - no JVD mouth - MMM heart - RRR, s1 s2, no murmur lungs - CTA b/l abd - soft NT ND BS+ musculo - tender b/l groin with flexion of both hips (mild) neuro - right hip flexion weakness, about 3/5 strength; left hip flexion 5/5; distal strength of ankle/feet 5/5 Results & Data Results & Data ([facility]) Vital Signs (Past 12 Hours) Vital Signs Temp Pulse Resp BP Pulse Ox O2 Del Method 07/31/22 15:45 37.1 C 85 18 163/72 H 96 Room Air 07/31/22 07:45 36.5 C 85 16 146/78 H 97 Room Air Laboratory Results Laboratory Results - last 24 hr 07/31/22 07/31/22 07/31/22 12:11 12:11 12:11 WBC 10.56 RBC 3.50 L Hgb 9.3 L Hct 28.4 L MCV 81.1 MCH 26.6 MCHC 32.7 RDW Std Deviation 42.0 RDW Coeff of Adele 14.3 Plt Count 463 H MPV 8.7 L Absolute Nucleated RBC 0.02 H Nucleated RBC % (auto) 0.2 Sodium 135 L Potassium 4.4 Chloride 105 Carbon Dioxide 24 Anion Gap 6 BUN 15 Creatinine 0.63 Est Cr Clr Drug Dosing 104.4 Est GFR ( Amer) 121.6 Est GFR (Non-Af Amer) 104.9 BUN/Creatinine Ratio 23.8 H Glucose 115 H Calcium 9.3 C-Reactive Protein 0.68 H Random Vancomycin 29.3 H* Diagnostic Findings blood cultures negative 07/26 PG Care Time/CCT Total # of Minutes Spent Total Time Spent with Patient: Total time spent is greater than 50% in coordination of care (as documented) at patient's floor/unit and/or counseling patient: Coding Level of Care Code 47513 Subseq Hosp Care Lvl 2 Diagnoses Discitis M46.46 Spinal region: lumbar Psoas abscess K68.12 Polysubstance use disorder F19.90 HTN (hypertension) I10 Lumbar spinal stenosis M48.061 Lower back pain M54.50; G89.29 Back pain laterality: midline Chronicity: chronic Sciatica presence: without sciatica (1) Discitis Spinal region: lumbar Qualified Code(s): M46.46 - Discitis, unspecified, lumbar region (2) Lower back pain Back pain laterality: midline Chronicity: chronic Sciatica presence: without sciatica Qualified Code(s): M54.50 - Low back pain, unspecified; G89.29 - Other chronic pain
[2022-08-01] MEDS: AZTREONAM 1,000 MG in DEXTROSE 5% 100 ML IV SCH ×3 (00:31→16:16)
[2022-08-01] MEDS: traMADol HCL 50 MG TABLET PO PRN ×3 (03:33→17:56)
[2022-08-01] MEDS: METOPROLOL SUCC 50MG EXT REL TAB PO SCH (09:23)
[2022-08-01] MEDS: NICOTINE 21 MG/24 HR TDSY TD SCH (09:24)
[2022-08-01] MEDS: CeleBREX 200 MG CAP PO SCH (09:24)
[2022-08-01] MEDS: ENOXAPARIN INJ 40 MG/0.4 ML SYR SQ SCH (09:25)
[2022-08-01] MEDS: tiZANidine HCL 4 MG TABLET PO PRN ×2 (09:58→21:51)
[2022-08-01] MEDS: VANCOMYCIN HCL 1,500 MG in SODIUM CHLORIDE 0.9% 500 ML IV SCH ×2 (10:34→21:51)
[2022-08-01] MEDS ORDERED: HYDROCODONE/ACETAMINOPHEN 7.5/325MG TAB PO PRN (15:04)
[2022-08-01] MEDS: ADVANCED PROBIOTIC 1250 MG CAPSULE PO SCH (16:14)
--- NOTE | 2022-08-01 19:18 | Hospitalist Progress Note ---
Date of Service August 01, 2022 Assessment & Plan (1) Discitis: Plan: 62yo male history of known discitis/osteomyelitis at L1. He has had partial antibiotic treatment - complicated due to multiple hospitalizations, leaving [facility] several times and most recently likely medication non-adherence with home regimen of Doxycycline and Levofloxacin. He left [facility] against medical advice recently (was supposed to d/c with PICC line with 1 month of IV vanco/aztreonam - since he left [facility] he was sent out on doxy/levofloxacin). He is afebrile, Blood cultures are negative to date CRP minimally elevated Has history of polysubstance abuse (possible intranasal heroine use most recently?) and PICC line placement would not be ideal. Cont IV Vancomycin Cont Aztreonam 2gm IV q 8 hours ID consultation appreciated He IS AGREEABLE to his blood draw today - repeat Cr and vanco level pending for this evening ID recommendations If there is no plan for surgical intervention, he can continue IV vancomycin and Aztreonam for 4 weeksas recommended by Amina ID prior to his AMA discharge on 07/23/22. Plan to complete therapy on 08/14/22 with ID follow up as scheduled. He will likely need suppressive long-term PO abx therapy after completion of IV abx in the setting of retained spinal hardware. If he leaves [facility], would send out on oral doxycycline and levaquin once again. By report he was seen by surgery at [facility] for his severe L1 disease (spinal stenosis with diskitis) and surgery was deferred at that time. It would be helpful to get that consultation report from [facility] [place] Clarke to see in consult tomorrow due to the RLE weakness which is likely from the L1-L2 disease. (2) Psoas abscess: Plan: Reduced in size per current MRI obtained this admission. By report psoas abscess I/D did not grow any specific pathogen. These were I/D by [facility] PRITCHARD during previous admission there. Cont IV Vancomycin and Aztreonam. ID followup in 3 weeks recommended by [facility] ID Connect. (3) Polysubstance use disorder: Plan: poor PICC line candidate (4) HTN (hypertension): Plan: BPs remain elevated Increased metoprolol succinate to 50mg daily May need additional Rx or further adjustment of metoprolol (5) Lumbar spinal stenosis: Plan: severe at L1-L2 during prior admission Dr Clarke had recommended surgical intervention at tertiary care center he remains quite weak in the RLE with hip flexion and has difficulty walking by report he was evaluated by neurosurgery or ortho at [facility] surgical intervention deferred at [facility] by report I have asked Dr Clarke to see once again in consult tomorrow (6) Lower back pain: Plan: toradol - completed 5 days of Rx with such add celebrex 200mg daily in clarice of toradol cont zanaflex prn despite large doses of tramadol 100mg q6h prn he continues with significant pain trial of norco 7.5's - if ineffective then revert back to the tramadol poor candidate for long-acting pain meds (7) Tobacco dependence: Plan: nicoderm patch 21mg/day Plan DVT proph - lovenox Admission and Anticipated Discharge Date Admission Date: July 26, 2022 Subjective patient refused AM blood work today he refuses to allow blood draws from his arms - wants blood drawn from his distal legs or proximal foot he continues with back and b/l groin pain continues with RLE weakness states that the tramadol helps but does not relieve the pain entirely he questions why the toradol was stopped today; I told him that it is limited to 5 days then it must be stopped per protocol I also told him I spoke with Dr Clarke about his lumbar spine issues and that Dr Clarke will see him tomorrow Review of Systems Review of Systems: gen - no fevers or chills cv - no cp, no orthopnea pulm - no cough/dyspnea GI - no diarrhea; moved bowels today - normal BM Physical Exam Physical Exam: gen - NAD, lying in bed comfortably neck - no JVD mouth - MMM heart - RRR, s1 s2, no murmur lungs - CTA b/l abd - soft NT ND BS+ musculo - minimal tenderness b/l groin with flexion of both hips neuro - right hip flexion weakness, about 3/5 strength - no change from prior exam; left hip flexion 5/5; distal strength of ankle/feet 5/5 psych - agitated/irritable Results & Data Results & Data ([facility]) Vital Signs (Past 12 Hours) Vital Signs Temp Pulse Pulse Resp BP Pulse Ox O2 Del Method 08/01/22 14:55 37.5 C 85 14 156/77 H 96 Room Air 08/01/22 07:35 36.6 C 67 14 155/83 H 91 Room Air PG Care Time/CCT Total # of Minutes Spent Total Time Spent with Patient: Total time spent is greater than 50% in coordination of care (as documented) at patient's floor/unit and/or counseling patient: Coding Level of Care Code 73868 Subseq Hosp Care Lvl 2 Diagnoses Discitis M46.46 Spinal region: lumbar Psoas abscess K68.12 Polysubstance use disorder F19.90 HTN (hypertension) I10 Lumbar spinal stenosis M48.061 Lower back pain M54.50; G89.29 Back pain laterality: midline Chronicity: chronic Sciatica presence: without sciatica Tobacco dependence F17.200 (1) Lower back pain Back pain laterality: midline Chronicity: chronic Sciatica presence: without sciatica Qualified Code(s): M54.50 - Low back pain, unspecified; G89.29 - Other chronic pain (2) Discitis Spinal region: lumbar Qualified Code(s): M46.46 - Discitis, unspecified, lumbar region
[2022-08-01] MEDS ORDERED: VANCOMYCIN LEVEL ONE (20:30)
[2022-08-01 21:15] LABS: Creatinine Clr Calc Pharmacy 84.3 ml/min; Est GFR (African American) 111.3 ml/min; Est GFR (Non-African American) 96.1 ml/min
[2022-08-01] MEDS: traZODone HCL 50 MG TAB PO SCH (21:51)
[2022-08-02] MEDS: AZTREONAM 1,000 MG in DEXTROSE 5% 100 ML IV SCH ×4 (00:55→23:35)
[2022-08-02] MEDS: traMADol HCL 50 MG TABLET PO PRN ×4 (01:12→19:51)
[2022-08-02] MEDS: ADVANCED PROBIOTIC 1250 MG CAPSULE PO SCH (08:12)
[2022-08-02] MEDS: METOPROLOL SUCC 50MG EXT REL TAB PO SCH (08:12)
[2022-08-02] MEDS: ENOXAPARIN INJ 40 MG/0.4 ML SYR SQ SCH (08:13)
[2022-08-02] MEDS: CeleBREX 200 MG CAP PO SCH (08:13)
[2022-08-02] MEDS: NICOTINE 21 MG/24 HR TDSY TD SCH (08:14)
[2022-08-02] MEDS: VANCOMYCIN HCL 1,500 MG in SODIUM CHLORIDE 0.9% 500 ML IV SCH (09:20)
--- NOTE | 2022-08-02 10:43 | Hospitalist Progress Note ---
Date of Service August 02, 2022 Assessment & Plan (1) Discitis: Plan: 62yo male history of known discitis/osteomyelitis at L1. He has had partial antibiotic treatment - complicated due to multiple hospitalizations, leaving [facility] several times and most recently likely medication non-adherence with home regimen of Doxycycline and Levofloxacin. He left [facility] against medical advice recently (was supposed to d/c with PICC line with 1 month of IV vanco/aztreonam - since he left [facility] he was sent out on doxy/levofloxacin). He is afebrile, Blood cultures are negative to date CRP minimally elevated Has history of polysubstance abuse (possible intranasal heroine use most recently?) and PICC line placement would not be ideal. Cont IV Vancomycin Cont Aztreonam 2gm IV q 8 hours ID consultation appreciated He IS AGREEABLE to his blood draw today - repeat Cr and vanco level pending for this evening ID recommendations If there is no plan for surgical intervention, he can continue IV vancomycin and Aztreonam for 4 weeksas recommended by Amina ID prior to his AMA discharge on 07/23/22. Plan to complete therapy on 08/14/22 with ID follow up as scheduled. He will likely need suppressive long-term PO abx therapy after completion of IV abx in the setting of retained spinal hardware. If he leaves [facility], would send out on oral doxycycline and levaquin once again. By report he was seen by surgery at [facility] for his severe L1 disease (spinal stenosis with diskitis) and surgery was deferred at that time. It would be helpful to get that consultation report from [facility]. Dr Clarke feels of the patient will require surgical intervention should be transferred to a tertiary center. (2) Psoas abscess: Plan: Reduced in size per current MRI obtained this admission. By report psoas abscess I/D did not grow any specific pathogen. These were I/D by [facility] during previous admission there. Cont IV Vancomycin and Aztreonam. ID followup in 3 weeks recommended by [facility] ID Connect. (3) Polysubstance use disorder: Plan: poor PICC line candidate (4) HTN (hypertension): Plan: BPs remain elevated Increased metoprolol succinate to 50mg daily May need additional Rx or further adjustment of metoprolol (5) Lumbar spinal stenosis: Plan: severe at L1-L2 during prior admission Dr Clarke had recommended surgical intervention at tertiary care center he remains quite weak in the RLE with hip flexion and has difficulty walking by report he was evaluated by neurosurgery or ortho at [facility] surgical intervention deferred at [facility] by report (6) Lower back pain: Plan: toradol - completed 5 days of Rx with such transition to Celebrex without much improvement added scheduled tylenol added prn oxycodone cont zanaflex prn tramadol 100mg q6h prn he continues with significant pain poor candidate for long-acting pain meds (7) Tobacco dependence: Plan: nicoderm patch 21mg/day Plan DVT proph - lovenox eventually looking for placement Admission and Anticipated Discharge Date Admission Date: July 26, 2022 Subjective Patient is back to usual state of health he continues to have some right leg discomfort weakness and inability to lift it however he can stand and bear weight. He was seen by orthopedic spine consultation recommended conservative m anagement toes infection is cleared Review of Systems Review of Systems: Moderate distress and fatigue no headache, no visual changes no speech or swallowing issues no chest pain, pressure or palpitations no shortness of breath, cough or wheezes no abdominal pain, nausea or vomiting, diarrhea or constipation no dysuria, hematuria or frequency no focal joint pain or swelling Patient has bilateral hip and back pain radiating across his back without radicular pain down his leg this has improved since tramadol was initiated no bruising, there is a small rash on his posterior right hip with keeping an eye on no focal signs of weakness or numbness or altered sensation no complaints of anxiety or depression.. Physical Exam Physical Exam: The patient appeared well nourished and normally developed. He appears chronically ill Vital signs as documented. Head exam is normocephalic atraumatic Neck is without JVD, thyromegaly, or carotid bruits. Lungs are clear to auscultation, no focal loss of breath sounds Cardiac exam, Rhythm is regular.. No murmurs, rubs or gallops. 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 Results & Data Results & Data ([facility]) Vital Signs (Past 12 Hours) Vital Signs Temp Pulse Pulse Resp BP Pulse Ox O2 Del Method 08/02/22 07:27 Room Air 08/02/22 07:17 98.2 F 84 18 160/83 H 96 Room Air 08/01/22 22:45 99.0 F 85 18 177/88 H 96 Room Air PG Care Time/CCT Total # of Minutes Spent Total Time Spent with Patient: Total time spent is greater than 50% in coordination of care (as documented) at patient's floor/unit and/or counseling patient: Coding Level of Care Code 78212 Subseq Hosp Care Lvl 2 Diagnoses Discitis M46.46 Spinal region: lumbar Psoas abscess K68.12 Polysubstance use disorder F19.90 HTN (hypertension) I10 Lumbar spinal stenosis M48.061 Lower back pain M54.50; G89.29 Back pain laterality: midline Chronicity: chronic Sciatica presence: without sciatica Tobacco dependence F17.200 (1) Lower back pain Back pain laterality: midline Chronicity: chronic Sciatica presence: without sciatica Qualified Code(s): M54.50 - Low back pain, unspecified; G89.29 - Other chronic pain (2) Discitis Spinal region: lumbar Qualified Code(s): M46.46 - Discitis, unspecified, lumbar region
[2022-08-02] MEDS: tiZANidine HCL 4 MG TABLET PO PRN ×2 (10:53→21:40)
--- NOTE | 2022-08-02 11:11 | Orthopedic Consultation ---
Date of Consultation August 02, 2022 Assessment & Plan (1) Psoas abscess: Assessment lumbar discitis with psoas abscess. Plan at this time his updated MRI does appear to have demonstrated some improvement of his abscesses. Clinically he is in pain but neurologically functioning. Again he is outside of our ability to treat him surgically at this institution. If he declines he would have to return to [place]. At this point it recommend he continue with his antibiotic therapy as it seems to be helping him. History of Present Illness Reason for Consultation: Lumbar spinal stenosis with radiculopathy Attending Physician: Erich Menezes MD History of Present Illness This is a 62-year-old male known to me the presents with continued back and leg pain. He has a history of L1-L2 discitis with psoas abscesses. He was treated at [facility] for several weeks before leaving [facility]. He returns to the hospital with for pain. He states his pain is predominantly in the right upper buttock and groin. It is controlled with pain medications and muscle relaxants. Allergies Allergy/AdvReac Type Severity Reaction Status Date / Time gabapentin Allergy Severe SHORT OF Verified 07/26/22 16:44 BREATH cat dander Allergy Intermediate itchy Verified 07/26/22 16:44 eyes, sneezing codeine AdvReac Intermediate GI upset Verified 07/26/22 16:44 Home Medications Medication Instructions Recorded Confirmed Type cyclobenzaprine 10 mg tablet 10 mg PO BID PRN muscle spasm #60 03/13/22 07/26/22 Rx tabs trazodone 50 mg tablet 50 mg PO HS #30 tabs 04/10/22 07/26/22 Rx tramadol 50 mg tablet 50 mg PO .Q4-6H PRN pain, moderate 07/10/22 07/26/22 Rx #35 tabs doxycycline hyclate 100 mg capsule 100 mg PO BID 07/26/22 07/26/22 History levofloxacin 750 mg tablet 750 mg PO DAILY 07/26/22 07/26/22 History Patient History Medical History Blood loss anemia Diastolic dysfunction Hyperglycemia Hypertension LVH (left ventricular hypertrophy) LVH (left ventricular hypertrophy) severe Obesity Osteoarthritis Polysubstance use disorder Rib fracture left sided, remotely, healed without intervention- does have residual pain over area Rib pain on left side Surgical History History of arthroscopy of shoulder left History of back surgery x5 total History of knee replacement right S/P TKR (total knee replacement) Family History Denies family history of Ovarian cancer Prostate cancer Myocardial infarction Breast cancer Colorectal cancer Social History Smoking Status: Current every day smoker Tobacco Type: Cigarettes Second Hand Exposure: Yes; Hx Alcohol Use: No Hx Substance Use: Yes Prescribed Medications: Marijuana Last Used Substance: Days (ago) Last Used Substance Other:: "snorted some white powder a friend gave me" Preferred Language: Persian 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 There is some deficits to hip flexion on the right compared to left but otherwise he is neurologically and impressively intact in light of his MRI findings. Results & Data ([facility]) Vital Signs (Past 12 Hours) Vital Signs Temp Pulse Resp BP Pulse Ox O2 Del Method 08/02/22 07:27 Room Air 08/02/22 07:17 36.8 C 84 18 160/83 H 96 Room Air
--- NOTE | 2022-08-02 14:11 | Pharmacy Report ---
Pharmacy PK ABX Note - Date of Service August 02, 2022 - Assessment and Plan Assessment 08/02: * Patient agreed to trough draw last PM, level 14.8. * SCr 0.78. Continuing vancomycin per ID recommendations 07/31: * Lab level was not drawn until 12:11 and per RN was drawn at tail end of vanco infusion. Level reported as 29.3. This is still predicting within target AUC, however since ?vanc still infusing interpretation is clouded. Will ordered another level. 07/30/22: * Patient is refusing lab draw today and thus unable to evaluate a vanc level today. Provider was made aware. I will reorder a random level for tomorrow morning to be batched with AM labs. 07/28/22: * Random level drawn today at 1400 rendered a random level of 18.1 * Patient's renal function has improved in past 24 hours; estimated CrCl im proved from 98 ml/min to 115 ml/min. * WBC count downtrending since initiation of vancomycin and aztreonam. 07/27/22: * Mr Camacho is a 62 year old M receiving vancomycin + aztreonam for treatment of discitis. * Pt with a complicated history. See H&P for additional information. * Since his last discharge from a hospital, he was prescribed PO doxycycline and levofloxacin, however, pt's compliance with med administration is questionable. * ID consulted; awaiting recommendations. Plan Vancomycin 08/02: * Maintenance dose decrease to 1250 mg q12H as current dose predicts AUC slightly above target (626 mg/L.hr) * This will predict an AUC of 523 mg/L.hr 07/30/22: * Continue current dose of 1500 mg IV q12h which is predicted to achieve target AUC/FRANCISCO of 400-600 mg/L.hr 07/28/22: * Maintenance dose increased to 1500 mg IV every 12 hours, starting tonight at 2000. * Another random drug level has been ordered following the 4th dose of this new strength, scheduled for 07/30 at 1400. 07/27/22: * Maintenance dose: 1250 mg IV every 12 hours * Regimen is predicted to achieve target AUC/FRANCISCO of 400-600 mg/L.hr Pharmacy will continue to follow and will adjust dose/frequency as necessary. Thank you. Pharmacy has transitioned to AUC monitoring for vancomycin. AUC/FRANCISCO is the preferred PK/PD target and is associated with decreased risk of nephrotoxicity compared to traditional trough targets.
--- NOTE | 2022-08-02 16:12 | XRay Report ---
XR hip RT min 2V HISTORY: 62 years-old Male limited mobility and pain chronic right hip pain COMPARISON: CT abdomen and pelvis 05/31/2022 TECHNIQUE: 2 views of the right hip FINDINGS: Partially imaged fusion hardware with discectomy changes of the lumbar spine. Moderate osteoarthritis of the right hip. Subcortical cystic changes of the acetabulum. No acute fracture, dislocation or av ascular necrosis. Status post removal of the right SI joint bolts. IMPRESSION: No acute fracture or dislocation. ACT 112: Negative or not required by law. The above report was generated using voice recognition software. It may contain grammatical, syntax o r spelling errors. Electronically signed by: Eliazar Gonzalez M.D. 08/02/2022 4:11 PM
[2022-08-02] MEDS: ACETAMINOPHEN 500 MG TAB PO SCH (21:37)
[2022-08-02] MEDS: oxyCODONE HCL IR 5 MG TAB (IMMEDIATE RELEASE) PO PRN (21:41)
[2022-08-02] MEDS: traZODone HCL 50 MG TAB PO SCH (21:42)
[2022-08-02] MEDS: VANCOMYCIN HCL 1,250 MG in SODIUM CHLORIDE 0.9% 250 ML IV SCH (21:45)
[2022-08-03] MEDS: traMADol HCL 50 MG TABLET PO PRN ×2 (07:54→19:51)
[2022-08-03] MEDS: ENOXAPARIN INJ 40 MG/0.4 ML SYR SQ SCH (08:24)
[2022-08-03] MEDS: NICOTINE 21 MG/24 HR TDSY TD SCH (08:25)
[2022-08-03] MEDS: METOPROLOL SUCC 50MG EXT REL TAB PO SCH (08:26)
[2022-08-03] MEDS: CeleBREX 200 MG CAP PO SCH (08:26)
[2022-08-03] MEDS: ADVANCED PROBIOTIC 1250 MG CAPSULE PO SCH (08:26)
[2022-08-03] MEDS: ACETAMINOPHEN 500 MG TAB PO SCH ×3 (08:27→21:05)
[2022-08-03] MEDS: AZTREONAM 1,000 MG in DEXTROSE 5% 100 ML IV SCH ×2 (08:50→16:07)
[2022-08-03] MEDS: VANCOMYCIN HCL 1,250 MG in SODIUM CHLORIDE 0.9% 250 ML IV SCH ×2 (09:57→21:05)
[2022-08-03] MEDS: oxyCODONE HCL IR 5 MG TAB (IMMEDIATE RELEASE) PO PRN (11:11)
--- NOTE | 2022-08-03 11:26 | Infectious Disease Progress Nt ---
Date of Service August 03, 2022 Assessment & Plan (1) Psoas abscess: (2) Lower back pain: (3) Leukocytosis: (4) Discitis: Plan This is a 62 year old male with a history of HtN, osteoarthritis, polysubstance abuse, HFpEF right TKR, multiple back surgeries,reportedly s/p removal of prior posterior instrumentation from L3-S1 with repeat posterior spinal fusion at L2- L3 and L3-L4 in 2019, recent diagnosis of lumbar spine osteomyelitis with psoas abscess brought into the ED on 07/11/2022 by EMS on a 302 petition by his niece returns to the ED on 07/26/22 with worsening back pain. He was initially admitted to [facility] on 05/31/22 with weakness and back pain. He was diagnosed with lumbar spine osteomyelitis/diskitis and psoas abscess. Imaging also noted pedicle screws and rods from L2-S1. Spinal surgery recommended transfer to a tertiary center and patient received a dose of Daptomycin and cefepime. He was transferred to for possible neurosurgical intervention. He was admitted to from 06/01/22-07/05/22. A Ct spine there showed l1-l2 diskitis/osteomyelitis with possible epidural abscess and psoas abscess. He was evaluated by neurosurgery and did not undergo surgical intervention. He underwent IR guided psoas abscess drainage with right-sided drain placement on 06/02. A TTE on 06/07/2022 was technically difficult but showed normal EF and normal valves. A 06/14/22 MRI spine showed extensive postsurgical changes of lumbosacral spine with evidence of paraspinal enhancement and bilateral abscesses with likely component of osteomyelitis at L1. On 06/18 exchange of right sided drain was requested due to minimal output. CT abdomen pelvis with contrast on 06/25/22 showed that the bilateral psoas collections had much improved measuring approximately 1.9 cm. Daptomycin was discontinued on 06/01 secondary to elevated CPK. He was treated with IV vancomycin and aztreonam throughout his admission. He was evaluated by ID who recommended antibiotics through 07/14/22 and repeat MRI after completion of antibiotics. The patient left AMA on 07/05/2022. Culture results are not available in review of available information in EMR but per report by primary team, cultures at were sterile. Approximately 1 week post AMA discharge, he was brought to [facility] on 07/11/22 by his niece. He was found altered, disheveled in a hotel and there was concern that he could not take care of himself. A Utox on that admission was positive for amphetamine, MDMA, benzos and cocaine. A lumbar spine MRi on 07/12/22 showed decrease in size of the bilateral psoas abscesses when compared to MRI study from 05/31/22. The L1-L2 discitis and osteomyelitis was unchanged. There was some concern however that the size of the psoas collections had increased in size from imaging results at off of antibiotics (1.9 cm vs 2.2 x 1.6cm) He was again transferred to on 07/13/22 for reevaluation of worsening infection and need for neurosurgical intervention. He was restarted on Aztreonam and vancomycin. A Lumbar spine MRI done at [facility] on 07/14/22 showed improved focal right and left psoas abscesses,persistent anterior and bilateral paraspinal phlegmonous changes extending from L1-L2 disc space and over the L2 vertebral body segment He was evaluated by Neurosurgery, Interventional Radiology and Infectious Disease. No surgical intervention was deemed necessary by Neurosurgery; IR felt his abscesses were not large enough for intervention; [facility] recommended that he complete Vancomycin and Aztreonam for 4 weeks ( approximate end date 08/11/22) with ID follow up in 3 weeks post discharge. He unfortunately again left AMA on 07/23/22. He was discharged on oral Levaquin and Doxycycline to complete a 4 week course as a suboptimal option in setting of leaving AMA. He returns to [facility] 3 days after this AMA discharge on 07/26/22 with worsening back pain and leg weakness. He reports taking Doxycycline and Levaquin but admits to missing doses. He reports that the back pain is severe enough that " he blacked out". He reports self medicating with unknown substances. He is currently living in a hotel. He denies fever, chills, nausea, vomiting, change in urine or bowel habits. On admission he is afebrile. He is relatively stable hemodynamically except for hypertension. Admission labs are noted for a WBc 13.84, ESR 32 CRP 0.58. A lumbar MRi done on 07/26/22 re-demonstrated findings of discitis osteomyelitis at L1-L2, unchanged severe canal stenosis at L1-L2.and interval continued decrease in size in bilateral psoas abscesses. He received a dose of Daptomycin and Cefepime. He is currently on Aztreonam and Vancomycin. ID consulted for evaluation of Lumbar osteomyelitis and psoas abscess. MIcro Per report cultures at since 05/2022 have been sterile, team will obtain final cultures Cultures sterile at prior [facility] admission BC 07/26 NGTD Abx Cefepime 07/26 daptomycin 07/26 Vancomycin 07/26- ongoing Whgtcsvab12/20- ongoing 1. Chronic Lumbar spine osteomyelitis/diskitis 2. Bilateral psoas abscess -Sterile BC and abscess cultures sterile per report and per review of available records and culture date esr 32, crp 0.58 -interrupted antibiotic therapy - has been on vancomycin, aztreonam, cefepime, daptomycin , doxycycline, levaquin on and off since 05/2022 3. History of leaving AMA 4. Polysubstance abuse 5. Housing instability Recommendations He has chronic lumbar osteomyelitis and persistent bilateral psoas abscesses on MRI although decreased in size. He has been on and off antibiotics since 05/31 (7- 8 weeks). He has multiple spinal hardware and TKR. Although he has had incomplete recommended antibiotic therapy to date, I don' t think think antibiotics alone will adequately manage his infection in the setting of hardware. He has not been deemed a surgical candidate and IR feels the residual psoas abscesses are not large enough for intervention. He has no positive cultures to date to help target antibiotic selection. Cultures have remained sterile on IV vancomycin and Aztreonam. He remains hemodynamically stable. If there is no plan for surgical intervention, he can continue IV vancomycin and Aztreonam for 4 weeks as recommended by Amina BERG prior to his AMA discharge on 07/23. He missed 3 days of IV abx prior to this readmission. Plan to complete therapy on 08/14 with ID follow up with [facility] as scheduled. He will likely need suppressive PO abx therapy after completion of IV abx in the setting or retained spinal hardware. IF he leaves AMA, would discharge on oral doxycycline and levaquin ( if qtc < 500). I discussed with the patient that we have no positive organism on culture to help target therapy, thus he remains on the current Broad abx regimen as initiated at [facility] as he has clinically improved and abscess on imaging has decreased on this therapy. He understands that there is no guarantee that his infection will be eradicated especially in the setting of retained surgical hardware in spine. He will need close ID follow up . He verbalized understanding. ON IV abx, monitor CBC with diff VANCO trough ( 15- 20), bmp, lft. Current van trough is 14.8 ( goal is 15-20). Pharmacy is managing vanco levels. Please obtain all cultures from previous admission at [facility] and scan in [facility] system. Please notify ID helene if any pending cultures at [facility] are finalized as positive. Miguel Dean MD MPH ID [facility] ID Division Please page with any questions. ID physician is available over phone on weekend for any questions/concerns. Admission and Anticipated Discharge Date Admission Date: July 26, 2022 Subjective Subsequent visit was provided via telemedicine using two-way real-time interactive telecommunication between the patient and the telemedicine provider. For the duration of the visit, the provider was performing the assessment from a different facility than the patient. This includesuse of bluetooth stethoscope forauscultationperformed by the telepresenter that the telemedicine provider can hear if described in the physical exam. Retread Mold Operator contact information: Please call [facility] Call Center [phone]. (Phone Number For Physician Use Only) After establishing a telemedicine visit, patient was: Patient was verified with two unique identifiers and Gave permission to continue telehealth session Subsequent Time Spent w Inpatient: 25 minutes He i afebrile. He is tolerating aztreonam and vancomycin without nausea, vomiting or diarrhea. He has continued back pain but it has improved since admission> He was evaluated by Ortho yesterday. No surgical intervention planned while he is here. He denies change in bowel or urine habits. He feels that sensation in lower extremities is near baseline. Review of System no fever no ab pain, nausea, vomiting or diarrhea back pain improving. Lower sxtremity sensation near baseline Physical Exam Constitutional: NAd, comfortable , conversant Eyes: PERRLA, EOMI Neck: supple Respiratory: No increased work of breathing. No chest wall tenderness Gastrointestinal (Abdomen): soft , Non tender Musculoskeletal: ROM intact lifts both legs off bed with no difficulty, Sensation in BL LE intact LLE strenght 5/4 RLE 4/4 strength mild paraspinal TTP in the lumbar sacral area - mid surgical incision area. Skin: lumbar spine surgical incision is well healed, clean and intact. Neurologic: Awake, alert, oriented times times 3 Psychiatric: normal affect and mood , cooperative Results & Data ([facility]) Vital Signs (Past 12 Hours) Vital Signs Temp Pulse Resp BP Pulse Ox O2 Del Method 08/03/22 07:45 36.6 C 85 18 172/81 H 99 Room Air Laboratory Results Laboratory Results - last 48 hr 08/01/22 08/01/22 20:30 20:30 Creatinine 0.78 Est Cr Clr Drug Dosing 84.3 Est GFR ( Amer) 111.3 Est GFR (Non-Af Amer) 96.1 Vancomycin Trough 14.8 Diagnostic Findings Microbiology 07/26/22 16:55 Blood Aerobic Blood Culture - Final No growth in Aerobic bottle after 5 days. 07/26/22 16:55 Blood Anaerobic Blood Culture - Final No growth in Anaerobic bottle after 5 days. 07/26/22 15:52 Blood Aerobic Blood Culture - Final No growth in Aerobic bottle after 5 days. 07/26/22 15:52 Blood Anaerobic Blood Culture - Final No growth in Anaerobic bottle after 5 days. Hip X-Ray 08/02/22 15:17 XR hip RT min 2V HISTORY: 62 years-old Male limited mobility and pain chronic right hip pain COMPARISON: CT abdomen and pelvis 05/31/2022 TECHNIQUE: 2 views of the right hip FINDINGS: Partially imaged fusion hardware with discectomy changes of the lumbar spine. Moderate osteoarthritis of the right hip. Subcortical cystic changes of the acetabulum. No acute fracture, dislocation or avascular necrosis. Status post removal of the right SI joint bolts. IMPRESSION: No acute fracture or dislocation. Lumbar Spine MRI 07/26/22 15:29 MR lumbar spine wo/w con CLINICAL HISTORY: psoas absess and discitis history TECHNIQUE: 3 plane localizer images, sagittal T2, sagittal T1, sagittal STIR, axial T1, axial T2 along with postcontrast axial T1 and sagittal T1 fat- saturated sequences were obtained of the lumbar spine, before and after intravenous administration of 12 mL of MultiHance. Comparison: Comparison is made to MRI lumbar spine 07/12/2022 FINDINGS: Exam is limited by patient motion and streak artifact from posterior fixation hardware as well as hardware from left sacroiliac fusion. Again noted is fluid signal in the L1 vertebral body and L1-L2 disc space. There is associated decre ased T1 signal. Within the limits of susceptibility artifact, severe canal stenosis is again noted at L1-L2. The previously noted bilateral psoas lesions are again decreased in size, previously measured 22 mm on the right and 11 mm in the left, now measure 18 mm in the right and 7 mm on the left. IMPRESSION: 1. 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 Severe canal stenosis is again noted at L1-L2. 2. Interval continued decrease in size in bilateral psoas abscesses. Medications Administered Home Medications Medication Instructions Recorded Confirmed Last Taken cyclobenzaprine 10 mg tablet 10 mg PO BID PRN muscle spasm #60 03/13/22 07/26/22 Unknown tabs trazodone 50 mg tablet 50 mg PO HS #30 tabs 04/10/22 07/26/22 Unknown tramadol 50 mg tablet 50 mg PO .Q4-6H PRN pain, moderate 07/10/22 07/26/22 Unknown #35 tabs doxycycline hyclate 100 mg capsule 100 mg PO BID 07/26/22 07/26/22 Unknown levofloxacin 750 mg tablet 750 mg PO DAILY 07/26/22 07/26/22 Unknown Active Medications Generic Name Dose Route Start Last Admin Trade Name Freq PRN Reason Stop Dose Admin Acetaminophen 1,000 mg 08/02/22 21:00 08/03/22 08:27 Acetaminophen 500 Mg Tab PO 09/01/22 20:59 Not Given TID CHIARA Celecoxib 200 mg 08/01/22 09:00 08/03/22 08:26 Celebrex 200 Mg Cap PO 08/31/22 08:59 200 mg QAM CHIARA Administration Enoxaparin Sodium 40 mg 07/28/22 09:00 08/03/22 08:24 Enoxaparin Inj 40 Mg/0.4 Ml Syr SQ 08/27/22 08:59 40 mg QAM CHIARA Administration Aztreonam 1,000 mg/ Dextrose 110 mls @ 100 mls/hr 07/26/22 23:00 08/03/22 09:57 IV 09/06/22 22:59 Infused Q8H CHIARA Infusion Protocol Vancomycin HCl 1,250 mg/ 275 mls @ 200 mls/hr 08/02/22 21:00 08/03/22 09:57 Sodium Chloride IV 08/16/22 20:59 200 mls/hr Q12H CHIARA Administration Protocol Lactobacillus Acidophilus 2 cap 08/01/22 15:15 08/03/22 08:26 Advanced Probiotic 1250 Mg Capsule PO 08/31/22 15:14 Not Given DAILY CHIARA Metoprolol Succinate 50 mg 08/01/22 09:00 08/03/22 08:26 Metoprolol Succ 50mg Ext Rel Tab PO 08/31/22 08:59 50 mg QAM CHIARA Administration Miscellaneous 1 each 07/27/22 08:59 08/03/22 08:26 Remove Nicoderm Patch N/A 08/26/22 08:58 1 each DAILY@0859 CHIARA Administration Nicotine 21 mg 07/26/22 22:00 08/03/22 08:25 Nicotine 21 Mg/24 Hr Tdsy TD 08/25/22 21:59 21 mg QAM CHIARA Administration Oxycodone HCl 10 mg 08/02/22 15:17 08/03/22 11:11 Oxycodone Hcl Ir 5 Mg Tab (Immediate Release) PO 08/16/22 15:16 10 mg Q6H PRN Administration Moderate Pain Tizanidine HCl 2 mg 07/28/22 07:39 08/02/22 21:40 Tizanidine Hcl 4 Mg Tablet PO 08/27/22 08:59 2 mg TID PRN Administration Muscle Spasm Tramadol HCl 100 mg 08/01/22 17:32 08/03/22 07:54 Tramadol Hcl 50 Mg Tablet PO 08/31/22 17:44 100 mg Q6H PRN Administration pain Trazodone HCl 50 mg 07/27/22 21:00 08/02/22 21:42 Trazodone Hcl 50 Mg Tab PO 08/26/22 20:59 50 mg HS CHIARA Administration (1) Lower back pain Back pain laterality: midline Chronicity: chronic Sciatica presence: without sciatica Qualified Code(s): M54.50 - Low back pain, unspecified; G89.29 - Other chronic pain (2) Leukocytosis Leukocytosis type: unspecified Qualified Code(s): D72.829 - Elevated white blood cell count, unspecified
[2022-08-03 11:42] LABS: Creatinine Clr Calc Pharmacy 82.2 ml/min; Est GFR (African American) 110.2 ml/min; Est GFR (Non-African American) 95.1 ml/min
--- NOTE | 2022-08-03 18:29 | Hospitalist Progress Note ---
Date of Service August 03, 2022 Assessment & Plan (1) Discitis: Plan: 62yo male history of known discitis/osteomyelitis at L1. He has had partial antibiotic treatment - complicated due to multiple hospitalizations, leaving AMA several times and most recently likely medication non-adherence with home regimen of Doxycycline and Levofloxacin. He left [facility] against medical advice recently (was supposed to d/c with PICC line with 1 month of IV vanco/aztreonam - since he left [place] he was sent out on doxy/levofloxacin). He is afebrile, Blood cultures are negative to date CRP minimally elevated Has history of polysubstance abuse (possible intranasal heroine use most recently?) and PICC line placement would not be ideal. Cont IV Vancomycin Cont Aztreonam 2gm IV q 8 hours ID consultation appreciated ID recommendations If there is no plan for surgical intervention, he can continue IV vancomycin and Aztreonam for 4 weeksas recommended by [facility] prior to his AMA discharge on 07/23/22. Plan to complete therapy on 08/14/22 with ID follow up as previously scheduled.Patient is medically stable but too high risk to discharge home, pending placement at this time. He will likely need suppressive long-term PO abx therapy after completion of IV abx in the setting of retained spinal hardware. Follow up with neurosurgery as outpatient (2) Psoas abscess: Plan: Reduced in size per current MRI obtained this admission. By report psoas abscess I/D did not grow any specific pathogen. These were I/D by [facility] during previous admission there. Cont IV Vancomycin and Aztreonam. ID followup in 3 weeks recommended by [facility]. (3) Polysubstance use disorder: Plan: poor PICC line candidate (4) HTN (hypertension): Plan: BPs remain elevated Increased metoprolol succinate to 50mg daily May need additional Rx or further adjustment of metoprolol (5) Lumbar spinal stenosis: Plan: severe at L1-L2 during prior admission Dr Clarke had recommended surgical intervention at tertiary care center he remains quite weak in the RLE with hip flexion and has difficulty walking by report he was evaluated by neurosurgery or ortho at [facility] surgical intervention deferred at [facility] by report (6) Lower back pain: Plan: toradol - completed 5 days of Rx with such transition to Celebrex without much improvement added scheduled tylenol added prn oxycodone cont zanaflex prn tramadol 100mg q6h prn he continues with significant pain poor candidate for long-acting pain meds (7) Tobacco dependence: Plan: nicoderm patch 21mg/day Plan DVT proph - lovenox eventually looking for placement Admission and Anticipated Discharge Date Admission Date: July 26, 2022 Subjective Request increased frequency in tizanidine. Celebrex not helping as much as Toradol - reports Naproxen previously more helpful. Ongoing back pain but much improved since admission. Not safe to go home. Awaiting placement at this time. Review of Systems Review of Systems: All systems reviewed & are unremarkable except as noted in Subjective Physical Exam Constitutional: WD/WN, vitals as above Respiratory: normal respiratory effort, lungs clear to auscultation Cardiovascular: RRR, no murmur, no edema Gastrointestinal (Abdomen): normal bowel sounds, soft, nontender, no hepatosplenomegaly Psychiatric: A+Ox3, euthymic affect Results & Data Results & Data ([facility]) Vital Signs (Past 12 Hours) Vital Signs Temp Pulse Resp BP Pulse Ox O2 Del Method 08/03/22 07:45 36.6 C 85 18 172/81 H 99 Room Air PG Care Time/CCT Total # of Minutes Spent Total Time Spent with Patient: Total time spent is greater than 50% in coordination of care (as documented) at patient's floor/unit and/or counseling patient: Coding Level of Care Code 51564 Subseq Hosp Care Lvl 1 Diagnoses Discitis M46.46 Spinal region: lumbar Psoas abscess K68.12 Polysubstance use disorder F19.90 HTN (hypertension) I10 Lumbar spinal stenosis M48.061 Lower back pain M54.50; G89.29 Back pain laterality: midline Chronicity: chronic Sciatica presence: without sciatica Tobacco dependence F17.200 (1) Lower back pain Back pain laterality: midline Chronicity: chronic Sciatica presence: without sciatica Qualified Code(s): M54.50 - Low back pain, unspecified; G89.29 - Other chronic pain (2) Discitis Spinal region: lumbar Qualified Code(s): M46.46 - Discitis, unspecified, lumbar region
[2022-08-03] MEDS: traZODone HCL 50 MG TAB PO SCH (21:58)
[2022-08-03] MEDS: tiZANidine HCL 4 MG TABLET PO PRN (21:58)
[2022-08-04] MEDS: AZTREONAM 1,000 MG in DEXTROSE 5% 100 ML IV SCH ×4 (00:01→23:32)
[2022-08-04] MEDS: traMADol HCL 50 MG TABLET PO PRN ×3 (03:56→19:18)
[2022-08-04] MEDS ORDERED: VANCOMYCIN LEVEL ONE (04:44)
[2022-08-04] MEDS: tiZANidine HCL 4 MG TABLET PO PRN ×2 (05:30→15:58)
[2022-08-04] MEDS: ACETAMINOPHEN 500 MG TAB PO SCH (08:36)
[2022-08-04] MEDS: NICOTINE 21 MG/24 HR TDSY TD SCH (08:37)
[2022-08-04] MEDS: NAPROXEN 375 MG TAB PO SCH ×2 (08:37→21:38)
[2022-08-04] MEDS: ENOXAPARIN INJ 40 MG/0.4 ML SYR SQ SCH (08:37)
[2022-08-04] MEDS: ADVANCED PROBIOTIC 1250 MG CAPSULE PO SCH (08:37)
[2022-08-04] MEDS: METOPROLOL SUCC 50MG EXT REL TAB PO SCH (08:37)
[2022-08-04 10:37] LABS: Creatinine Clr Calc Pharmacy 95.3 ml/min; Est GFR (African American) 117.1 ml/min
[2022-08-04] MEDS: VANCOMYCIN HCL 1,250 MG in SODIUM CHLORIDE 0.9% 250 ML IV SCH ×2 (10:49→22:03)
--- NOTE | 2022-08-04 11:22 | Pharmacy Report ---
Pharmacy PK ABX Note - Date of Service August 04, 2022 - Assessment and Plan Assessment 08/04: * No changes in culture or lab results. * Day #10 of abx 08/02: * Patient agreed to trough draw last PM, level 14.8. * SCr 0.78. Continuing vancomycin per ID recommendations Plan Vancomycin * Current regimen: 1250 mg IV every 12 hours * Trough level obtained 08/04/22 resulted as 10.6 mcg/mL. This is predicted to achieve target AUC/FRANCISCO of 400-600 mg/L.hr * Predicted AUC at steady state: 440 mg/L.hr * Continue 1250 mg IV every 12 hours * Repeat random level ordered for: 08/07/22 Pharmacy will continue to follow and will adjust dose/frequency as necessary. Thank you. Pharmacy has transitioned to AUC monitoring for vancomycin. AUC/FRANCISCO is the preferred PK/PD target and is associated with decreased risk of nephrotoxicity compared to traditional trough targets.
--- NOTE | 2022-08-04 11:44 | Hospitalist Progress Note ---
Date of Service August 04, 2022 Assessment & Plan (1) Discitis: Plan: 62yo male history of known discitis/osteomyelitis at L1. He has had partial antibiotic treatment - complicated due to multiple hospitalizations, leaving AMA several times and most recently likely medication non-adherence with home regimen of Doxycycline and Levofloxacin. He left [facility] against medical advice recently (was supposed to d/c with PICC line with 1 month of IV vanco/aztreonam - since he left [facility] he was sent out on doxy/levofloxacin). He is afebrile, Blood cultures are negative to date CRP minimally elevated Has history of polysubstance abuse (possible intranasal heroine use most recently?) and PICC line placement would not be ideal. Cont IV Vancomycin Cont Aztreonam 2gm IV q 8 hours ID consultation appreciated ID recommendations If there is no plan for surgical intervention, he can continue IV vancomycin and Aztreonam for 4 weeksas recommended by [facility] prior to his AMA discharge on 07/23/22. Plan to complete therapy on 08/14/22 with ID follow up as previously scheduled.Patient is medically stable but too high risk to discharge home, pending placement at this time. [place] swing bed vs. [place] [facility] vs. [facility] swing bed - awaiting insurance authorization. He will likely need suppressive long-term PO abx therapy after completion of IV abx in the setting of retained spinal hardware. HIM request for all prior culture results from [facility] Follow up with neurosurgery as outpatient (2) Psoas abscess: Plan: Reduced in size per current MRI obtained this admission. By report psoas abscess I/D did not grow any specific pathogen. These were I/D by [facility] during previous admission there. Cont IV Vancomycin and Aztreonam. ID followup in 3 weeks recommended by [facility]. (3) Polysubstance use disorder: Plan: poor PICC line candidate (4) HTN (hypertension): Plan: BPs remain elevated Increased metoprolol succinate to 50mg daily May need additional Rx or further adjustment of metoprolol (5) Lumbar spinal stenosis: Plan: severe at L1-L2 during prior admission Dr Clarke had recommended surgical intervention at tertiary care center he remains quite weak in the RLE with hip flexion and has difficulty walking by report he was evaluated by neurosurgery or ortho at [facility] surgical intervention deferred at [facility] by report (6) Lower back pain: Plan: Switched clebrex to Naproxen per patient preference it has worked better previously. d/c acetaminophen per patient request added prn oxycodone cont Zanaflex q6h prn tramadol 100mg q6h prn he continues with significant pain poor candidate for long-acting pain meds (7) Tobacco dependence: Plan: nicoderm patch 21mg/day Plan DVT proph - Lovenox Diet - regular Disposition - medically stable for discharge pending placement Admission and Anticipated Discharge Date Admission Date: July 26, 2022 Subjective No acute concerns at this time. Doing better with naproxen and increased frequency of tizanidine. Requests to stop acetaminophen as reports this is not effective even to reduce the amount of other pain medication he requires. Review of Systems Review of Systems: All systems reviewed & are unremarkable except as noted in Subjective Physical Exam Constitutional: WD/WN, vitals as above Gastrointestinal (Abdomen): normal bowel sounds, soft, nontender, no hepatosplenomegaly Psychiatric: A+Ox3, euthymic affect Results & Data Results & Data ([facility]) Vital Signs (Past 12 Hours) Vital Signs Temp Pulse Resp BP Pulse Ox O2 Del Method 08/04/22 08:08 37.1 C 84 18 152/72 H 98 Room Air PG Care Time/CCT Total # of Minutes Spent Total Time Spent with Patient: Total time spent is greater than 50% in coordination of care (as documented) at patient's floor/unit and/or counseling patient: Coding Level of Care Code 63134 Subseq Hosp Care Lvl 1 Diagnoses Discitis M46.46 Spinal region: lumbar Psoas abscess K68.12 Polysubstance use disorder F19.90 HTN (hypertension) I10 Lumbar spinal stenosis M48.061 Lower back pain M54.50; G89.29 Back pain laterality: midline Chronicity: chronic Sciatica presence: without sciatica Tobacco dependence F17.200 (1) Lower back pain Back pain laterality: midline Chronicity: chronic Sciatica presence: without sciatica Qualified Code(s): M54.50 - Low back pain, unspecified; G89.29 - Other chronic pain (2) Discitis Spinal region: lumbar Qualified Code(s): M46.46 - Discitis, unspecified, lumbar region
[2022-08-04] MEDS: oxyCODONE HCL IR 5 MG TAB (IMMEDIATE RELEASE) PO PRN (19:30)
[2022-08-04] MEDS: traZODone HCL 50 MG TAB PO SCH (23:31)
[2022-08-05] MEDS: traMADol HCL 50 MG TABLET PO PRN ×3 (00:50→21:36)
[2022-08-05] MEDS: oxyCODONE HCL IR 5 MG TAB (IMMEDIATE RELEASE) PO PRN ×2 (05:48→16:13)
[2022-08-05] MEDS: NICOTINE 21 MG/24 HR TDSY TD SCH (08:42)
[2022-08-05] MEDS: ENOXAPARIN INJ 40 MG/0.4 ML SYR SQ SCH (08:42)
[2022-08-05] MEDS: METOPROLOL SUCC 50MG EXT REL TAB PO SCH (08:43)
[2022-08-05] MEDS: ADVANCED PROBIOTIC 1250 MG CAPSULE PO SCH ×2 (08:43→08:47)
[2022-08-05] MEDS: NAPROXEN 375 MG TAB PO SCH ×2 (08:43→21:34)
[2022-08-05] MEDS: AZTREONAM 1,000 MG in DEXTROSE 5% 100 ML IV SCH ×3 (08:46→23:54)
[2022-08-05] MEDS: VANCOMYCIN HCL 1,250 MG in SODIUM CHLORIDE 0.9% 250 ML IV SCH ×2 (10:16→21:30)
[2022-08-05] MEDS: tiZANidine HCL 4 MG TABLET PO PRN ×2 (13:59→23:16)
--- NOTE | 2022-08-05 19:23 | Hospitalist Progress Note ---
Date of Service August 05, 2022 Assessment & Plan (1) Discitis: Plan: 62yo male history of known discitis/osteomyelitis at L1. He has had partial antibiotic treatment - complicated due to multiple hospitalizations, leaving AMA several times and most recently likely medication non-adherence with home regimen of Doxycycline and Levofloxacin. He left [facility] against medical advice recently (was supposed to d/c with PICC line with 1 month of IV vanco/aztreonam - since he left [place] he was sent out on doxy/levofloxacin). He is afebrile, Blood cultures are negative to date CRP minimally elevated Has history of polysubstance abuse (possible intranasal heroine use most recently?) and PICC line placement would not be ideal. Cont IV Vancomycin Cont Aztreonam 2gm IV q 8 hours ID consultation appreciated ID recommendations If there is no plan for surgical intervention, he can continue IV vancomycin and Aztreonam for 4 weeksas recommended by [facility] prior to his AMA discharge on 07/23/22. Plan to complete therapy on 08/14/22 with ID follow up as previously scheduled.Patient is medically stable but too high risk to discharge home, pending placement at this time. [place] swing bed vs. [place] [facility] vs. [facility] swing bed - awaiting insurance authorization. He will likely need suppressive long-term PO abx therapy after completion of IV abx in the setting of retained spinal hardware. HIM request for all prior culture results from [facility] - pending at this time Follow up with neurosurgery as outpatient (2) Psoas abscess: Plan: Reduced in size per current MRI obtained this admission. By report psoas abscess I/D did not grow any specific pathogen. These were I/D by [facility] during previous admission there. Cont IV Vancomycin and Aztreonam. ID followup in 3 weeks recommended by [facility] Connect. (3) Polysubstance use disorder: Plan: poor PICC line candidate (4) HTN (hypertension): Plan: BPs remain elevated Increased metoprolol succinate to 50mg daily May need additional Rx or further adjustment of metoprolol (5) Lumbar spinal stenosis: Plan: severe at L1-L2 during prior admission Dr Clarke had recommended surgical intervention at tertiary care center he remains quite weak in the RLE with hip flexion and has difficulty walking by report he was evaluated by neurosurgery or ortho at [place] surgical intervention deferred at [facility] by report (6) Lower back pain: Plan: Switched clebrex to Naproxen per patient preference it has worked better previously. d/c acetaminophen per patient request Continue prn oxycodone cont Zanaflex q6h prn tramadol 100mg q6h prn he continues with significant pain poor candidate for long-acting pain meds (7) Tobacco dependence: Plan: nicoderm patch 21mg/day Plan DVT proph - Lovenox 40 mg subcu daily Diet - regular Disposition - medically stable for discharge pending placement Admission and Anticipated Discharge Date Admission Date: July 26, 2022 Subjective No acute concerns or questions at this time. Medically stable for discharge awaiting placement at this time due to being unsafe to go home. Review of Systems Review of Systems: All systems reviewed & are unremarkable except as noted in Subjective Physical Exam Constitutional: WD/WN, vitals as above Respiratory: normal respiratory effort, lungs clear to auscultation Cardiovascular: RRR, no murmur, no edema Gastrointestinal (Abdomen): normal bowel sounds, soft, nontender, no hepatosplenomegaly Psychiatric: A+Ox3, euthymic affect Results & Data Results & Data ([facility]) Vital Signs (Past 12 Hours) Vital Signs Temp Pulse Resp BP Pulse Ox O2 Del Method 08/05/22 15:47 37.0 C 80 16 158/77 H 97 Room Air 08/05/22 07:50 Room Air 08/05/22 07:32 36.7 C 81 16 131/73 97 Room Air PG Care Time/CCT Total # of Minutes Spent Total Time Spent with Patient: Total time spent is greater than 50% in coordination of care (as documented) at patient's floor/unit and/or counseling patient: Coding Level of Care Code 25156 Subseq Hosp Care Lvl 1 Diagnoses Discitis M46.46 Spinal region: lumbar Psoas abscess K68.12 Polysubstance use disorder F19.90 HTN (hypertension) I10 Lumbar spinal stenosis M48.061 Lower back pain M54.50; G89.29 Back pain laterality: midline Chronicity: chronic Sciatica presence: without sciatica Tobacco dependence F17.200 (1) Lower back pain Back pain laterality: midline Chronicity: chronic Sciatica presence: without sciatica Qualified Code(s): M54.50 - Low back pain, unspecified; G89.29 - Other chronic pain (2) Discitis Spinal region: lumbar Qualified Code(s): M46.46 - Discitis, unspecified, lumbar region
[2022-08-05] MEDS: traZODone HCL 50 MG TAB PO SCH (23:16)
[2022-08-06] MEDS: oxyCODONE HCL IR 5 MG TAB (IMMEDIATE RELEASE) PO PRN ×3 (01:51→20:26)
[2022-08-06] MEDS: traMADol HCL 50 MG TABLET PO PRN ×2 (06:17→15:39)
[2022-08-06] MEDS: METOPROLOL SUCC 50MG EXT REL TAB PO SCH (08:47)
[2022-08-06] MEDS: NICOTINE 21 MG/24 HR TDSY TD SCH (08:47)
[2022-08-06] MEDS: ENOXAPARIN INJ 40 MG/0.4 ML SYR SQ SCH (08:47)
[2022-08-06] MEDS: ADVANCED PROBIOTIC 1250 MG CAPSULE PO SCH (08:47)
[2022-08-06] MEDS: NAPROXEN 375 MG TAB PO SCH ×2 (08:47→20:27)
[2022-08-06] MEDS: AZTREONAM 1,000 MG in DEXTROSE 5% 100 ML IV SCH ×2 (09:22→15:39)
[2022-08-06] MEDS: VANCOMYCIN HCL 1,250 MG in SODIUM CHLORIDE 0.9% 250 ML IV SCH ×2 (10:31→20:25)
--- NOTE | 2022-08-06 11:48 | Hospitalist Progress Note ---
Date of Service August 06, 2022 Assessment & Plan (1) Discitis: Plan: 62yo male history of known discitis/osteomyelitis at L1. He has had partial antibiotic treatment - complicated due to multiple hospitalizations, leaving AMA several times and most recently likely medication non-adherence with home regimen of Doxycycline and Levofloxacin. He left [facility] against medical advice recently (was supposed to d/c with PICC line with 1 month of IV vanco/aztreonam - since he left [facility] he was sent out on doxy/levofloxacin). He is afebrile, Blood cultures are negative to date CRP minimally elevated Has history of polysubstance abuse (possible intranasal heroine use most recently?) and PICC line placement would not be ideal. Cont IV Vancomycin Cont Aztreonam 2gm IV q 8 hours ID consultation appreciated ID recommendations If there is no plan for surgical intervention, he can continue IV vancomycin and Aztreonam for 4 weeksas recommended by [place] [facility] prior to his AMA discharge on 07/23/22. Plan to complete therapy on 08/14/22 with ID follow up as previously scheduled.Patient is medically stable but too high risk to discharge home, pending placement at this time. [place] swing bed vs. [place] [facility] vs. [facility] swing bed - awaiting insurance authorization. He will likely need suppressive long-term PO abx therapy after completion of IV abx in the setting of retained spinal hardware. HIM request for all prior culture results from [facility] - pending at this time Follow up with neurosurgery as outpatient Planning on repeat labs tomorrow with his vancomycin levels to monitor inflammatory markers (2) Psoas abscess: Plan: Reduced in size per current MRI obtained this admission. By report psoas abscess I/D did not grow any specific pathogen. These were I/D by [facility] during previous admission there. Cont IV Vancomycin and Aztreonam. ID followup in 3 weeks recommended by [facility] ID Connect. (3) Polysubstance use disorder: Plan: poor PICC line candidate (4) HTN (hypertension): Plan: BPs remain elevated Increased metoprolol succinate to 50mg daily May need additional Rx or further adjustment of metoprolol (5) Lumbar spinal stenosis: Plan: severe at L1-L2 during prior admission Dr Clarke had recommended surgical intervention at tertiary care center he remains quite weak in the RLE with hip flexion and has difficulty walking by report he was evaluated by neurosurgery or ortho at [place] surgical intervention deferred at [place] by report (6) Lower back pain: Plan: Switched clebrex to Naproxen per patient preference it has worked better previously. d/c acetaminophen per patient request Continue prn oxycodone cont Zanaflex q6h prn tramadol 100mg q6h prn he continues with significant pain poor candidate for long-acting pain meds (7) Tobacco dependence: Plan: nicoderm patch 21mg/day Plan DVT proph - Lovenox 40 mg subcu daily Diet - regular Disposition - medically stable for discharge pending placement Admission and Anticipated Discharge Date Admission Date: July 26, 2022 Subjective No acute concerns or questions from the patient. He reports pain under control with the current regimen. Medically stable for discharge awaiting placement at this time. Review of Systems Review of Systems: All systems reviewed & are unremarkable except as noted in Subjective Physical Exam Constitutional: WD/WN, vitals as above Respiratory: normal respiratory effort, lungs clear to auscultation Cardiovascular: RRR, no murmur, no edema Psychiatric: A+Ox3, euthymic affect Results & Data Results & Data ([facility]) Vital Signs (Past 12 Hours) Vital Signs Temp Pulse Resp BP Pulse Ox O2 Del Method 08/06/22 08:15 Room Air 08/06/22 07:44 36.8 C 77 16 165/88 H 97 Room Air PG Care Time/CCT Total # of Minutes Spent Total Time Spent with Patient: Total time spent is greater than 50% in coordination of care (as documented) at patient's floor/unit and/or counseling patient: Coding Level of Care Code 25888 Subseq Hosp Care Lvl 1 Diagnoses Discitis M46.46 Spinal region: lumbar Psoas abscess K68.12 Polysubstance use disorder F19.90 HTN (hypertension) I10 Lumbar spinal stenosis M48.061 Lower back pain M54.50; G89.29 Back pain laterality: midline Chronicity: chronic Sciatica presence: without sciatica Tobacco dependence F17.200 (1) Lower back pain Back pain laterality: midline Chronicity: chronic Sciatica presence: without sciatica Qualified Code(s): M54.50 - Low back pain, unspecified; G89.29 - Other chronic pain (2) Discitis Spinal region: lumbar Qualified Code(s): M46.46 - Discitis, unspecified, lumbar region
[2022-08-07] MEDS: AZTREONAM 1,000 MG in DEXTROSE 5% 100 ML IV SCH ×4 (00:07→23:02)
[2022-08-07] MEDS: traZODone HCL 50 MG TAB PO SCH ×2 (00:23→02:01)
[2022-08-07] MEDS: traMADol HCL 50 MG TABLET PO PRN ×3 (02:00→20:05)
[2022-08-07] MEDS: tiZANidine HCL 4 MG TABLET PO PRN ×2 (04:23→14:01)
[2022-08-07] MEDS: oxyCODONE HCL IR 5 MG TAB (IMMEDIATE RELEASE) PO PRN ×3 (07:40→23:01)
[2022-08-07] MEDS: NAPROXEN 375 MG TAB PO SCH ×2 (07:41→20:06)
[2022-08-07] MEDS: ADVANCED PROBIOTIC 1250 MG CAPSULE PO SCH (07:41)
[2022-08-07] MEDS: METOPROLOL SUCC 50MG EXT REL TAB PO SCH (07:41)
[2022-08-07] MEDS: ENOXAPARIN INJ 40 MG/0.4 ML SYR SQ SCH (07:42)
[2022-08-07] MEDS: NICOTINE 21 MG/24 HR TDSY TD SCH (07:42)
[2022-08-07] MEDS ORDERED: VANCOMYCIN LEVEL ONE (08:30)
[2022-08-07] MEDS: VANCOMYCIN HCL 1,250 MG in SODIUM CHLORIDE 0.9% 250 ML IV SCH (11:14)
[2022-08-07 11:22] LABS: Basophils # (auto) 0.05 K/uL (0-0.2); Basophils % (auto) 0.5 %; Eosinophils # (auto) 0.04 K/uL (0-0.50); Eosinophils % (auto) 0.4 %; Hematocrit (blood only) 28.3 % (40.1-51.0); Hemoglobin 8.9 g/dl (14.0-18.0); Immature Granulocytes # (auto) 0.06 K/uL (0.00-0.02); Immature Granulocytes % (auto) 0.6 %; Lymphocytes % (auto) 18.8 %; Mean Corpuscular Hemoglobin 25.6 pg (25.0-34.0); Mean Corpuscular Hgb Conc 31.4 g/dL (32.0-36.0); Mean Corpuscular Volume 81.3 fL (80.0-100.0); Mean Platelet Volume 8.6 fL (9.4-12.4); Monocytes # (auto) 0.71 K/uL (0.24-0.82); Neutrophils # (auto) 7.35 K/uL (1.4-6.5); Neutrophils % (auto) 72.7 %; Platelet Count 429 K/uL (130-400); RDW Coefficient of Variation 14.3 % (11.5-14.5); RDW Standard Deviation 42.5 fL (36.4-46.3); Red Blood Count 3.48 M/uL (4.63-6.08); White Blood Count 10.11 K/ul (4.8-10.8)
[2022-08-07 11:50] LABS: Alanine Aminotransferase 29 U/L (7-52); Albumin Globulin Ratio 1.2 (0.9-2); Albumin Level 3.6 gm/dl (3.4-5.0); Alkaline Phosphatase 95 U/L (34-104); Anion Gap 4 (3-11); Aspartate Aminotransferase 25 U/L (13-39); BUN Creatinine Ratio 28.8 (10-20); Bilirubin,Total 0.2 mg/dl (0.2-1.0); Blood Urea Nitrogen 19 mg/dl (6-23); C Reactive Protein < 0.50 mg/dl (0-0.5); Calcium 9.3 mg/dl (8.5-10.1); Carbon Dioxide 28 mmol/L (21-32); Chloride 104 mmol/L (98-107); Creatinine Clr Calc Pharmacy 99.7 ml/min; Est GFR (African American) 119.3 ml/min; Est GFR (Non-African American) 102.9 ml/min; Globulin 2.9 gm/dl (2.5-4.0); Glucose 115 mg/dl (70-99(Fasting)); Potassium 4.6 mmol/L (3.5-5.1); Sodium 136 mmol/L (136-145); Total Protein 6.5 gm/dl (6.0-8.3)
--- NOTE | 2022-08-07 14:38 | Pharmacy Report ---
Pharmacy PK ABX Note - Date of Service August 07, 2022 - Assessment and Plan Assessment 08/07/22: * Patient remains afebrile, renal function stable, and stable WBC * Patient with retained spinal hardware, will require long-term IV antibiotics followed by suppressive PO antibiotics * Awaiting placement Background: * Mr Camacho is a 62 year old M receiving vancomycin + aztreonam for treatment of discitis + abscess of psoas. * Pt with a complicated history. See H&P for additional information. * Since his last discharge from a hospital, he was prescribed PO doxycycline and levofloxacin, however, pt's compliance with med administration is questionable. * ID consulted - recommending continuation of vancomycin/aztreonam Plan Vancomycin * Current regimen: 1250 mg IV every 12 hours * Trough level obtained 08/07/22 resulted as 10.6 mcg/mL. This is predicted to achieve target AUC/FRANCISCO of 400-600 mg/L.hr, however probability of AUC > 400 is only estimated at 68%. * Predicted AUC at steady state: 429 mg/L.hr * Will increase to 1500 mg IV q12h to increase likelihood of target AUC attainment w/ limited risk of nephrotoxicity * Will repeat level in 72 hours Aztreonam * 1 g IV q8h - no change Pharmacy will continue to follow and will adjust dose/frequency as necessary. Thank you. Pharmacy has transitioned to AUC monitoring for vancomycin. AUC/FRANCISCO is the preferred PK/PD target and is associated with decreased risk of nephrotoxicity compared to traditional trough targets.
--- NOTE | 2022-08-07 19:19 | Hospitalist Progress Note ---
Date of Service August 07, 2022 Assessment & Plan (1) Discitis: Plan: 62yo male history of known discitis/osteomyelitis at L1. He has had partial antibiotic treatment - complicated due to multiple hospitalizations, leaving AMA several times and most recently likely medication non-adherence with home regimen of Doxycycline and Levofloxacin. He left [facility] against medical advice recently (was supposed to d/c with PICC line with 1 month of IV vanco/aztreonam - since he left [facility] he was sent out on doxy/levofloxacin). He is afebrile, Blood cultures are negative to date CRP minimally elevated Has history of polysubstance abuse (possible intranasal heroine use most recently?) and PICC line placement would not be ideal. Cont IV Vancomycin Cont Aztreonam 2gm IV q 8 hours ID consultation appreciated ID recommendations If there is no plan for surgical intervention, he can continue IV vancomycin and Aztreonam for 4 weeksas recommended by [place] [facility] prior to his AMA discharge on 07/23/22. Plan to complete therapy on 08/14/22 with ID follow up as previously scheduled.Patient is medically stable but too high risk to discharge home, pending placement at this time. [place] swing bed vs. [place] [facility] vs. [facility] swing bed - awaiting insurance authorization. He will likely need suppressive long-term PO abx therapy after completion of IV abx in the setting of retained spinal hardware. HIM request for all prior culture results from [facility] - pending at this time Follow up with neurosurgery as outpatient CRP now undetectable. (2) Psoas abscess: Plan: Reduced in size per current MRI obtained this admission. By report psoas abscess I/D did not grow any specific pathogen. These were I/D by [facility] during previous admission there. Cont IV Vancomycin and Aztreonam. ID followup in 3 weeks recommended by [facility] ID Connect. (3) Polysubstance use disorder: Plan: poor PICC line candidate (4) HTN (hypertension): Plan: BPs remain elevated Increased metoprolol succinate to 50mg daily Start lisinopril 10 mg p.o. daily (5) Lumbar spinal stenosis: Plan: severe at L1-L2 during prior admission Dr Clarke had recommended surgical intervention at tertiary care center he remains quite weak in the RLE with hip flexion and has difficulty walking by report he was evaluated by neurosurgery or ortho at [place] surgical intervention deferred at [place] by report (6) Lower back pain: Plan: Switched clebrex to Naproxen per patient preference it has worked better pr eviously. d/c acetaminophen per patient request Continue prn oxycodone cont Zanaflex q6h prn tramadol 100mg q6h prn he continues with significant pain poor candidate for long-acting pain meds (7) Tobacco dependence: Plan: nicoderm patch 21mg/day Plan DVT proph - Lovenox 40 mg subcu daily Diet - regular Disposition - medically stable for discharge pending placement Admission and Anticipated Discharge Date Admission Date: July 26, 2022 Subjective No acute concerns or questions from the patient. Ultrasound-guided line placed today. CRP undetectable. He reports his back pain is well controlled on current regimen. Medically stable awaiting placement at this time. Review of Systems Review of Systems: All systems reviewed & are unremarkable except as noted in Subjective Physical Exam Constitutional: WD/WN, vitals as above Respiratory: normal respiratory effort Psychiatric: A+Ox3, euthymic affect Results & Data Results & Data ([facility]) Vital Signs (Past 12 Hours) Vital Signs Temp Pulse Pulse Resp BP BP Pulse Ox 08/07/22 15:11 36.9 C 80 18 151/85 H 97 08/07/22 07:30 08/07/22 07:28 37.1 C 86 18 163/88 H 95 O2 Del Method 08/07/22 15:11 Room Air 08/07/22 07:30 Room Air 08/07/22 07:28 Room Air PG Care Time/CCT Total # of Minutes Spent Total Time Spent with Patient: Total time spent is greater than 50% in coordination of care (as documented) at patient's floor/unit and/or counseling patient: Coding Level of Care Code 61568 Subseq Hosp Care Lvl 1 Diagnoses Discitis M46.46 Spinal region: lumbar Psoas abscess K68.12 Polysubstance use disorder F19.90 HTN (hypertension) I10 Lumbar spinal stenosis M48.061 Lower back pain M54.50; G89.29 Back pain laterality: midline Chronicity: chronic Sciatica presence: without sciatica Tobacco dependence F17.200 (1) Lower back pain Back pain laterality: midline Chronicity: chronic Sciatica presence: without sciatica Qualified Code(s): M54.50 - Low back pain, unspecified; G89.29 - Other chronic pain (2) Discitis Spinal region: lumbar Qualified Code(s): M46.46 - Discitis, unspecified, lumbar region
[2022-08-07] MEDS: VANCOMYCIN HCL 1,500 MG in SODIUM CHLORIDE 0.9% 500 ML IV SCH (20:10)
[2022-08-08] MEDS: traZODone HCL 50 MG TAB PO SCH (00:38)
[2022-08-08] MEDS: tiZANidine HCL 4 MG TABLET PO PRN ×3 (02:20→19:45)
[2022-08-08] MEDS: traMADol HCL 50 MG TABLET PO PRN ×2 (05:59→17:39)
[2022-08-08] MEDS: NICOTINE 21 MG/24 HR TDSY TD SCH ×3 (08:32→19:44)
[2022-08-08] MEDS: ADVANCED PROBIOTIC 1250 MG CAPSULE PO SCH (08:32)
[2022-08-08] MEDS: NAPROXEN 375 MG TAB PO SCH ×2 (08:32→19:47)
[2022-08-08] MEDS: METOPROLOL SUCC 50MG EXT REL TAB PO SCH (08:32)
[2022-08-08] MEDS: lisinopril 10 MG TAB PO SCH (08:32)
[2022-08-08] MEDS: ENOXAPARIN INJ 40 MG/0.4 ML SYR SQ SCH (08:33)
[2022-08-08] MEDS: AZTREONAM 1,000 MG in DEXTROSE 5% 100 ML IV SCH ×2 (08:56→16:22)
[2022-08-08] MEDS: VANCOMYCIN HCL 1,500 MG in SODIUM CHLORIDE 0.9% 500 ML IV SCH ×2 (09:58→21:19)
[2022-08-08] MEDS: oxyCODONE HCL IR 5 MG TAB (IMMEDIATE RELEASE) PO PRN ×2 (11:21→21:18)
--- NOTE | 2022-08-08 19:18 | Hospitalist Progress Note ---
Date of Service August 08, 2022 Assessment & Plan (1) Discitis: Plan: 62yo male history of known discitis/osteomyelitis at L1. He has had partial antibiotic treatment - complicated due to multiple hospitalizations, leaving AMA several times and most recently likely medication non-adherence with home regimen of Doxycycline and Levofloxacin. He left [facility] against medical advice recently (was supposed to d/c with PICC line with 1 month of IV vanco/aztreonam - since he left [facility] he was sent out on doxy/levofloxacin). He is afebrile, Blood cultures are negative to date CRP minimally elevated Has history of polysubstance abuse (possible intranasal heroine use most recently?) and PICC line placement would not be ideal. Cont IV Vancomycin Cont Aztreonam 2gm IV q 8 hours ID consultation appreciated ID recommendations If there is no plan for surgical intervention, he can continue IV vancomycin and Aztreonam for 4 weeksas recommended by [facility] prior to his AMA discharge on 07/23/22. Plan to complete therapy on 08/14/22 with ID follow up as previously scheduled.Patient is medically stable but too high risk to discharge home, pending placement at this time. [place] swing bed vs. [place] [facility] vs. [place] swing bed - awaiting insurance authorization. He will likely need suppressive long-term PO abx therapy after completion of IV abx in the setting of retained spinal hardware. HIM request for all prior culture results from [facility] - pending at this time Follow up with neurosurgery as outpatient CRP now undetectable. (2) Psoas abscess: Plan: Reduced in size per current MRI obtained this admission. By report psoas abscess I/D did not grow any specific pathogen. These were I/D by [facility] during previous admission there. Cont IV Vancomycin and Aztreonam. ID followup in 3 weeks recommended by [facility] ID Connect. (3) Polysubstance use disorder: Plan: poor PICC line candidate (4) HTN (hypertension): Plan: BPs remain elevated Increased metoprolol succinate to 50mg daily Start lisinopril 10 mg p.o. daily (5) Lumbar spinal stenosis: Plan: severe at L1-L2 during prior admission Dr Clarke had recommended surgical intervention at tertiary care center he remains quite weak in the RLE with hip flexion and has difficulty walking by report he was evaluated by neurosurgery or ortho at [facility] surgical intervention deferred at [facility] by report (6) Lower back pain: Plan: Switched clebrex to Naproxen per patient preference it has worked better pr eviously. d/c acetaminophen per patient request Continue prn oxycodone cont Zanaflex q6h prn tramadol 100mg q6h prn he continues with significant pain poor candidate for long-acting pain meds (7) Tobacco dependence: Plan: nicoderm patch 21mg/day Plan DVT proph - Lovenox 40 mg subcu daily Diet - regular Disposition - medically stable for discharge pending placement Admission and Anticipated Discharge Date Admission Date: July 26, 2022 Subjective No acute concerns or questions from the patient. Ultrasound-guided line placed today. CRP undetectable. He reports his back pain is well controlled on current regimen. Medically stable awaiting placement at this time. Physical Exam Physical Exam: Cardiovascular S1-S2 heard normally Lungs bilateral air entry slightly decreased at bases Abdomen soft Extremity no edema Results & Data Results & Data ([facility]) Vital Signs (Past 12 Hours) Vital Signs Temp Pulse Resp BP Pulse Ox O2 Del Method 08/08/22 15:06 37.1 C 77 18 137/69 98 08/08/22 08:03 36.6 C 75 20 151/78 H 96 Room Air PG Care Time/CCT Total # of Minutes Spent Total Time Spent with Patient: Total time spent is greater than 50% in coordination of care (as documented) at patient's floor/unit and/or counseling patient: Coding Level of Care Code 92203 Subseq Hosp Care Lvl 1 Diagnoses Discitis M46.46 Spinal region: lumbar Psoas abscess K68.12 Polysubstance use disorder F19.90 HTN (hypertension) I10 Lumbar spinal stenosis M48.061 Lower back pain M54.50; G89.29 Back pain laterality: midline Chronicity: chronic Sciatica presence: without sciatica Tobacco dependence F17.200 (1) Discitis Spinal region: lumbar Qualified Code(s): M46.46 - Discitis, unspecified, lumbar region (2) Lower back pain Back pain laterality: midline Chronicity: chronic Sciatica presence: without sciatica Qualified Code(s): M54.50 - Low back pain, unspecified; G89.29 - Other chronic pain
[2022-08-09] MEDS: traZODone HCL 50 MG TAB PO SCH (00:29)
[2022-08-09] MEDS: AZTREONAM 1,000 MG in DEXTROSE 5% 100 ML IV SCH ×4 (00:29→23:57)
[2022-08-09] MEDS: traMADol HCL 50 MG TABLET PO PRN ×2 (05:41→17:57)
[2022-08-09] MEDS: tiZANidine HCL 4 MG TABLET PO PRN ×2 (07:44→21:36)
[2022-08-09] MEDS: ADVANCED PROBIOTIC 1250 MG CAPSULE PO SCH (07:44)
[2022-08-09] MEDS: METOPROLOL SUCC 50MG EXT REL TAB PO SCH (07:44)
[2022-08-09] MEDS: lisinopril 10 MG TAB PO SCH (07:44)
[2022-08-09] MEDS: NAPROXEN 375 MG TAB PO SCH ×2 (07:44→21:11)
[2022-08-09] MEDS: ENOXAPARIN INJ 40 MG/0.4 ML SYR SQ SCH (07:45)
[2022-08-09] MEDS: VANCOMYCIN HCL 1,500 MG in SODIUM CHLORIDE 0.9% 500 ML IV SCH ×2 (09:24→21:14)
[2022-08-09 10:40] LABS: Creatinine Clr Calc Pharmacy 98.2 ml/min; Est GFR (African American) 118.5 ml/min; Est GFR (Non-African American) 102.3 ml/min
[2022-08-09] MEDS: oxyCODONE HCL IR 5 MG TAB (IMMEDIATE RELEASE) PO PRN ×2 (10:45→22:46)
--- NOTE | 2022-08-09 20:24 | Hospitalist Progress Note ---
Date of Service August 09, 2022 Assessment & Plan (1) Discitis: Plan: 62yo male history of known discitis/osteomyelitis at L1. He has had partial antibiotic treatment - complicated due to multiple hospitalizations, leaving AMA several times and most recently likely medication non-adherence with home regimen of Doxycycline and Levofloxacin. He left [facility] against medical advice recently (was supposed to d/c with PICC line with 1 month of IV vanco/aztreonam - since he left [facility] he was sent out on doxy/levofloxacin). He is afebrile, Blood cultures are negative to date CRP minimally elevated Has history of polysubstance abuse (possible intranasal heroine use most recently?) and PICC line placement would not be ideal. Cont IV Vancomycin Cont Aztreonam 2gm IV q 8 hours ID consultation appreciated ID recommendations If there is no plan for surgical intervention, he can continue IV vancomycin and Aztreonam for 4 weeksas recommended by [facility] prior to his AMA discharge on 07/23/22. Plan to complete therapy on 08/14/22 with ID follow up as previously scheduled.Patient is medically stable but too high risk to discharge home, pending placement at this time. [place] swing bed vs. [place] [facility] vs. [facility] swing bed - awaiting insurance authorization. He will likely need suppressive long-term PO abx therapy after completion of IV abx in the setting of retained spinal hardware. HIM request for all prior culture results from [facility] - pending at this time Follow up with neurosurgery as outpatient CRP now undetectable. (2) Psoas abscess: Plan: Reduced in size per current MRI obtained this admission. By report psoas abscess I/D did not grow any specific pathogen. These were I/D by [facility] during previous admission there. Cont IV Vancomycin and Aztreonam. ID followup in 3 weeks recommended by [facility] ID Connect. (3) Polysubstance use disorder: Plan: poor PICC line candidate (4) HTN (hypertension): Plan: BPs remain elevated Increased metoprolol succinate to 50mg daily Start lisinopril 10 mg p.o. daily (5) Lumbar spinal stenosis: Plan: severe at L1-L2 during prior admission Dr Clarke had recommended surgical intervention at tertiary care center he remains quite weak in the RLE with hip flexion and has difficulty walking by report he was evaluated by neurosurgery or ortho at [facility] surgical intervention deferred at [facility] by report (6) Lower back pain: Plan: Switched clebrex to Naproxen per patient preference it has worked better pr eviously. d/c acetaminophen per patient request Continue prn oxycodone cont Zanaflex q6h prn tramadol 100mg q6h prn he continues with significant pain poor candidate for long-acting pain meds (7) Tobacco dependence: Plan: nicoderm patch 21mg/day Plan DVT proph - Lovenox 40 mg subcu daily Diet - regular Disposition - medically stable for discharge pending placement Admission and Anticipated Discharge Date Admission Date: July 26, 2022 Subjective No acute concerns or questions from the patient. Medically stable awaiting placement at this time. Physical Exam Physical Exam: Head and ENT no thyroid enlargement trachea midline Cardiovascular S1-S2 are normal no S3 Lungs bilateral air entry fair no wheezing Abdomen soft nondistended positive bowel sounds no rebound tenderness Extremity shows trace edema Neurologically no focal deficits Skin shows no cyanosis Results & Data Results & Data ([facility]) Vital Signs (Past 12 Hours) Vital Signs Temp Pulse Resp BP Pulse Ox O2 Del Method 08/09/22 15:28 37.5 C 86 16 172/86 H 96 Room Air PG Care Time/CCT Total # of Minutes Spent Total Time Spent with Patient: Coding Level of Care Code 76887 Subseq Hosp Care Lvl 2 Diagnoses Discitis M46.46 Spinal region: lumbar Psoas abscess K68.12 Polysubstance use disorder F19.90 HTN (hypertension) I10 Lumbar spinal stenosis M48.061 Lower back pain M54.50; G89.29 Back pain laterality: midline Chronicity: chronic Sciatica presence: without sciatica Tobacco dependence F17.200 (1) Discitis Spinal region: lumbar Qualified Code(s): M46.46 - Discitis, unspecified, lumbar region (2) Lower back pain Back pain laterality: midline Chronicity: chronic Sciatica presence: without sciatica Qualified Code(s): M54.50 - Low back pain, unspecified; G89.29 - Other chronic pain
[2022-08-09] MEDS: NICOTINE 21 MG/24 HR TDSY TD SCH (20:36)
[2022-08-10] MEDS: traZODone HCL 50 MG TAB PO SCH (01:00)
[2022-08-10] MEDS: traMADol HCL 50 MG TABLET PO PRN ×3 (04:02→22:08)
[2022-08-10] MEDS: oxyCODONE HCL IR 5 MG TAB (IMMEDIATE RELEASE) PO PRN ×2 (08:21→16:21)
[2022-08-10] MEDS: ADVANCED PROBIOTIC 1250 MG CAPSULE PO SCH (08:23)
[2022-08-10] MEDS: METOPROLOL SUCC 50MG EXT REL TAB PO SCH (08:24)
[2022-08-10] MEDS: ENOXAPARIN INJ 40 MG/0.4 ML SYR SQ SCH (08:24)
[2022-08-10] MEDS: NAPROXEN 375 MG TAB PO SCH ×2 (08:24→20:56)
[2022-08-10] MEDS: lisinopril 10 MG TAB PO SCH (08:24)
[2022-08-10] MEDS ORDERED: VANCOMYCIN LEVEL ONE (08:30)
[2022-08-10] MEDS: AZTREONAM 1,000 MG in DEXTROSE 5% 100 ML IV SCH ×2 (09:37→17:24)
[2022-08-10] MEDS: NICOTINE 21 MG/24 HR TDSY TD SCH (11:14)
[2022-08-10] MEDS: VANCOMYCIN HCL 1,500 MG in SODIUM CHLORIDE 0.9% 500 ML IV SCH ×2 (11:16→20:56)
[2022-08-10 11:27] LABS: Hematocrit (blood only) 29.1 % (40.1-51.0); Hemoglobin 9.1 g/dl (14.0-18.0); Mean Corpuscular Hemoglobin 24.8 pg (25.0-34.0); Mean Corpuscular Hgb Conc 31.3 g/dL (32.0-36.0); Mean Corpuscular Volume 79.3 fL (80.0-100.0); Mean Platelet Volume 8.9 fL (9.4-12.4); Platelet Count 443 K/uL (130-400); RDW Coefficient of Variation 14.5 % (11.5-14.5); Red Blood Count 3.67 M/uL (4.63-6.08); White Blood Count 11.35 K/ul (4.8-10.8)
[2022-08-10 11:51] LABS: Calcium 9.4 mg/dl (8.5-10.1); Creatinine Clr Calc Pharmacy 96.7 ml/min; Est GFR (African American) 117.8 ml/min; Est GFR (Non-African American) 101.6 ml/min; Potassium 4.5 mmol/L (3.5-5.1)
[2022-08-10] MEDS: tiZANidine HCL 4 MG TABLET PO PRN (15:01)
--- NOTE | 2022-08-10 20:12 | Hospitalist Progress Note ---
Date of Service August 10, 2022 Assessment & Plan (1) Discitis: Plan: 62yo male history of known discitis/osteomyelitis at L1. He has had partial antibiotic treatment - complicated due to multiple hospitalizations, leaving AMA several times and most recently likely medication non-adherence with home regimen of Doxycycline and Levofloxacin. He left [facility] against medical advice recently (was supposed to d/c with PICC line with 1 month of IV vanco/aztreonam - since he left [place] he was sent out on doxy/levofloxacin). He is afebrile, Blood cultures are negative to date CRP minimally elevated Has history of polysubstance abuse (possible intranasal heroine use most recently?) and PICC line placement would not be ideal. Cont IV Vancomycin Cont Aztreonam 2gm IV q 8 hours ID consultation appreciated ID recommendations If there is no plan for surgical intervention, he can continue IV vancomycin and Aztreonam for 4 weeksas recommended by [facility] prior to his AMA discharge on 07/23/22. Plan to complete therapy on 08/14/22 with ID follow up as previously scheduled.Patient is medically stable but too high risk to discharge home, pending placement at this time. [place] swing bed vs. [place] [facility] vs. [facility] swing bed - awaiting insurance authorization. He will likely need suppressive long-term PO abx therapy after completion of IV abx in the setting of retained spinal hardware. HIM request for all prior culture results from [facility] - pending at this time Follow up with neurosurgery as outpatient CRP now undetectable. (2) Psoas abscess: Plan: Reduced in size per current MRI obtained this admission. By report psoas abscess I/D did not grow any specific pathogen. These were I/D by [facility] during previous admission there. Cont IV Vancomycin and Aztreonam. ID followup in 3 weeks recommended by [facility] ID Connect. (3) Polysubstance use disorder: Plan: poor PICC line candidate (4) HTN (hypertension): Plan: BPs remain elevated Increased metoprolol succinate to 50mg daily Start lisinopril 10 mg p.o. daily (5) Lumbar spinal stenosis: Plan: severe at L1-L2 during prior admission Dr Clarke had recommended surgical intervention at tertiary care center he remains quite weak in the RLE with hip flexion and has difficulty walking by report he was evaluated by neurosurgery or ortho at [facility] surgical intervention deferred at [facility] by report (6) Lower back pain: Plan: Switched clebrex to Naproxen per patient preference it has worked better pr eviously. d/c acetaminophen per patient request Continue prn oxycodone cont Zanaflex q6h prn tramadol 100mg q6h prn he continues with significant pain poor candidate for long-acting pain meds (7) Tobacco dependence: Plan: nicoderm patch 21mg/day Plan DVT proph - Lovenox 40 mg subcu daily Diet - regular Disposition - medically stable for discharge pending placement Admission and Anticipated Discharge Date Admission Date: July 26, 2022 Subjective No acute concerns or questions from the patient. Medically stable awaiting placement at this time. Physical Exam Physical Exam: Head and ENT no thyroid enlargement trachea midline Cardiovascular S1-S2 are normal no S3 Lungs bilateral air entry fair no wheezing Abdomen soft nondistended positive bowel sounds no rebound tenderness Extremity shows trace edema Neurologically no focal deficits Skin shows no cyanosis Results & Data Results & Data ([facility]) Vital Signs (Past 12 Hours) Vital Signs Temp Pulse Resp BP Pulse Ox O2 Del Method 08/10/22 15:13 36.7 C 80 18 165/82 H 94 Room Air PG Care Time/CCT Total # of Minutes Spent Total Time Spent with Patient: Total time spent is greater than 50% in coordination of care (as documented) at patient's floor/unit and/or counseling patient: Coding Level of Care Code 95493 Subseq Hosp Care Lvl 1 Diagnoses Discitis M46.46 Spinal region: lumbar Psoas abscess K68.12 Polysubstance use disorder F19.90 HTN (hypertension) I10 Lumbar spinal stenosis M48.061 Lower back pain M54.50; G89.29 Back pain laterality: midline Chronicity: chronic Sciatica presence: without sciatica Tobacco dependence F17.200 (1) Discitis Spinal region: lumbar Qualified Code(s): M46.46 - Discitis, unspecified, lumbar region (2) Lower back pain Back pain laterality: midline Chronicity: chronic Sciatica presence: without sciatica Qualified Code(s): M54.50 - Low back pain, unspecified; G89.29 - Other chronic pain
[2022-08-11] MEDS: AZTREONAM 1,000 MG in DEXTROSE 5% 100 ML IV SCH ×4 (00:05→23:29)
[2022-08-11] MEDS: traZODone HCL 50 MG TAB PO SCH (01:12)
[2022-08-11] MEDS: tiZANidine HCL 4 MG TABLET PO PRN ×2 (01:31→18:34)
[2022-08-11] MEDS: oxyCODONE HCL IR 5 MG TAB (IMMEDIATE RELEASE) PO PRN ×3 (01:34→21:22)
[2022-08-11] MEDS: traMADol HCL 50 MG TABLET PO PRN ×2 (06:14→16:01)
[2022-08-11] MEDS ORDERED: VANCOMYCIN LEVEL ONE (08:30)
[2022-08-11] MEDS: ENOXAPARIN INJ 40 MG/0.4 ML SYR SQ SCH (08:58)
[2022-08-11] MEDS: lisinopril 10 MG TAB PO SCH (09:25)
[2022-08-11] MEDS: METOPROLOL SUCC 50MG EXT REL TAB PO SCH (09:30)
[2022-08-11] MEDS: ADVANCED PROBIOTIC 1250 MG CAPSULE PO SCH (09:30)
[2022-08-11] MEDS: NAPROXEN 375 MG TAB PO SCH ×2 (09:31→20:49)
[2022-08-11] MEDS: NICOTINE 21 MG/24 HR TDSY TD SCH (09:31)
[2022-08-11 11:17] LABS: Hematocrit (blood only) 29.2 % (40.1-51.0); Hemoglobin 8.9 g/dl (14.0-18.0); Mean Corpuscular Hemoglobin 24.8 pg (25.0-34.0); Mean Corpuscular Hgb Conc 30.5 g/dL (32.0-36.0); Mean Corpuscular Volume 81.3 fL (80.0-100.0); Mean Platelet Volume 8.6 fL (9.4-12.4); Platelet Count 418 K/uL (130-400); RDW Coefficient of Variation 14.5 % (11.5-14.5); RDW Standard Deviation 43.1 fL (36.4-46.3); Red Blood Count 3.59 M/uL (4.63-6.08); White Blood Count 10.58 K/ul (4.8-10.8)
[2022-08-11 11:47] LABS: BUN Creatinine Ratio 26.1 (10-20); Calcium 9.3 mg/dl (8.5-10.1); Creatinine Clr Calc Pharmacy 95.3 ml/min; Est GFR (African American) 117.1 ml/min; Potassium 4.5 mmol/L (3.5-5.1)
[2022-08-11] MEDS: VANCOMYCIN HCL 1,500 MG in SODIUM CHLORIDE 0.9% 500 ML IV SCH ×2 (12:22→20:48)
--- NOTE | 2022-08-11 12:33 | Pharmacy Report ---
Pharmacy PK ABX Note - Date of Service August 11, 2022 - Assessment and Plan Assessment 08/11/22 * Patient initially refused labs this morning but eventually were able to draw them at ~1052. Confirmed Vanc was not infusing while the labs were drawn. * Awaiting placement, targeting 08/14. 08/07/22: * Patient remains afebrile, renal function stable, and stable WBC * Patient with retained spinal hardware, will require long-term IV antibiotics followed by suppressive PO antibiotics * Awaiting placement Background: * Mr Camacho is a 62 year old M receiving vancomycin + aztreonam for treatment of discitis + abscess of psoas. * Pt with a complicated history. See H&P for additional information. * Since his last discharge from a hospital, he was prescribed PO doxycycline and levofloxacin, however, pt's compliance with med administration is questionable. * ID consulted - recommending continuation of vancomycin/aztreonam Plan Vancomycin * Current regimen: 1500 mg IV every 12 hours * Trough level obtained 08/07/22 resulted as 13.1 mcg/mL (~2 hours late). This is predicted to achieve target AUC/FRANCISCO of 400-600 mg/L.hr. * Predicted AUC at steady state: 558 mg/L.hr * Will continue 1500 mg IV q12h to increase likelihood of target AUC attainment w/ limited risk of nephrotoxicity * Will repeat level if discharge date is delayed or as clinically indicated Aztreonam * 1 g IV q8h - no change Pharmacy will continue to follow and will adjust dose/frequency as necessary. Thank you. Pharmacy has transitioned to AUC monitoring for vancomycin. AUC/FRANCISCO is the preferred PK/PD target and is associated with decreased risk of nephrotoxicity compared to traditional trough targets.
--- NOTE | 2022-08-11 14:53 | Hospitalist Progress Note ---
Date of Service August 11, 2022 Assessment & Plan (1) Discitis: Plan: 62yo male history of known discitis/osteomyelitis at L1. He has had partial antibiotic treatment - complicated due to multiple hospitalizations, leaving AMA several times and most recently likely medication non-adherence with home regimen of Doxycycline and Levofloxacin. He left [facility] against medical advice recently (was supposed to d/c with PICC line with 1 month of IV vanco/aztreonam - since he left [place] he was sent out on doxy/levofloxacin). He is afebrile, Blood cultures are negative to date CRP minimally elevated Has history of polysubstance abuse (possible intranasal heroine use most recently?) and PICC line placement would not be ideal. Cont IV Vancomycin Cont Aztreonam 2gm IV q 8 hours ID consultation appreciated ID recommendations If there is no plan for surgical intervention, he can continue IV vancomycin and Aztreonam for 4 weeksas recommended by [facility] prior to his AMA discharge on 07/23/22. Plan to complete therapy on 08/14/22 with ID follow up as previously scheduled.Patient is medically stable but too high risk to discharge home, pending placement at this time. [place] swing bed vs. [place] [facility] vs. [place] swing bed - awaiting insurance authorization. He will likely need suppressive long-term PO abx therapy after completion of IV abx in the setting of retained spinal hardware. HIM request for all prior culture results from [facility] - pending at this time Follow up with neurosurgery as outpatient CRP now undetectable. (2) Psoas abscess: Plan: Reduced in size per current MRI obtained this admission. By report psoas abscess I/D did not grow any specific pathogen. These were I/D by [facility] during previous admission there. Cont IV Vancomycin and Aztreonam. ID followup in 3 weeks recommended by [facility] ID Connect. (3) Polysubstance use disorder: Plan: poor PICC line candidate (4) HTN (hypertension): Plan: BPs remain elevated Increased metoprolol succinate to 50mg daily Start lisinopril 10 mg p.o. daily (5) Lumbar spinal stenosis: Plan: severe at L1-L2 during prior admission Dr Clarke had recommended surgical intervention at tertiary care center he remains quite weak in the RLE with hip flexion and has difficulty walking by report he was evaluated by neurosurgery or ortho at [facility] surgical intervention deferred at [facility] by report (6) Lower back pain: Plan: Switched clebrex to Naproxen per patient preference it has worked better pr eviously. d/c acetaminophen per patient request Continue prn oxycodone cont Zanaflex q6h prn tramadol 100mg q6h prn he continues with significant pain poor candidate for long-acting pain meds (7) Tobacco dependence: Plan: nicoderm patch 21mg/day Plan DVT proph - Lovenox 40 mg subcu daily Diet - regular Disposition -pending placement Admission and Anticipated Discharge Date Admission Date: July 26, 2022 Subjective No acute concerns or questions from the patient. Medically stable awaiting placement at this time. Physical Exam Physical Exam: Head and ENT no thyroid enlargement trachea midline Cardiovascular S1-S2 are normal no S3 Lungs bilateral air entry fair no wheezing Abdomen soft nondistended no rebound tenderness Extremity shows trace edema Neurologically no focal deficits Skin shows no cyanosis Results & Data Results & Data ([facility]) Vital Signs (Past 12 Hours) Vital Signs Temp Pulse Resp BP Pulse Ox O2 Del Method 08/11/22 08:34 36.9 C 86 16 138/79 97 Room Air PG Care Time/CCT Total # of Minutes Spent Total Time Spent with Patient: Total time spent is greater than 50% in coordination of care (as documented) at patient's floor/unit and/or counseling patient: Coding Level of Care Code 81608 Subseq Hosp Care Lvl 1 Diagnoses Discitis M46.46 Spinal region: lumbar Psoas abscess K68.12 Polysubstance use disorder F19.90 HTN (hypertension) I10 Lumbar spinal stenosis M48.061 Lower back pain M54.50; G89.29 Back pain laterality: midline Chronicity: chronic Sciatica presence: without sciatica Tobacco dependence F17.200 (1) Discitis Spinal region: lumbar Qualified Code(s): M46.46 - Discitis, unspecified, lumbar region (2) Lower back pain Back pain laterality: midline Chronicity: chronic Sciatica presence: without sciatica Qualified Code(s): M54.50 - Low back pain, unspecified; G89.29 - Other chronic pain
[2022-08-12] MEDS: traZODone HCL 50 MG TAB PO SCH (00:58)
[2022-08-12] MEDS: traMADol HCL 50 MG TABLET PO PRN ×3 (01:06→19:27)
[2022-08-12] MEDS: oxyCODONE HCL IR 5 MG TAB (IMMEDIATE RELEASE) PO PRN ×2 (06:34→15:39)
[2022-08-12] MEDS: ENOXAPARIN INJ 40 MG/0.4 ML SYR SQ SCH (09:47)
[2022-08-12] MEDS: lisinopril 10 MG TAB PO SCH (09:47)
[2022-08-12] MEDS: tiZANidine HCL 4 MG TABLET PO PRN (09:49)
[2022-08-12] MEDS: NICOTINE 21 MG/24 HR TDSY TD SCH (09:50)
[2022-08-12] MEDS: ADVANCED PROBIOTIC 1250 MG CAPSULE PO SCH (09:51)
[2022-08-12] MEDS: METOPROLOL SUCC 50MG EXT REL TAB PO SCH (09:51)
[2022-08-12] MEDS: NAPROXEN 375 MG TAB PO SCH ×2 (09:51→20:57)
[2022-08-12] MEDS: AZTREONAM 1,000 MG in DEXTROSE 5% 100 ML IV SCH ×3 (09:52→23:44)
[2022-08-12] MEDS: VANCOMYCIN HCL 1,500 MG in SODIUM CHLORIDE 0.9% 500 ML IV SCH ×2 (11:09→20:55)
[2022-08-12 11:20] LABS: Hematocrit (blood only) 29.1 % (40.1-51.0); Hemoglobin 9.1 g/dl (14.0-18.0); Mean Corpuscular Hgb Conc 31.3 g/dL (32.0-36.0); Mean Corpuscular Volume 79.9 fL (80.0-100.0); Mean Platelet Volume 8.7 fL (9.4-12.4); Platelet Count 427 K/uL (130-400); RDW Coefficient of Variation 14.6 % (11.5-14.5); RDW Standard Deviation 42.6 fL (36.4-46.3); Red Blood Count 3.64 M/uL (4.63-6.08); White Blood Count 11.39 K/ul (4.8-10.8)
[2022-08-12 11:43] LABS: BUN Creatinine Ratio 26.4 (10-20); Calcium 9.3 mg/dl (8.5-10.1); Creatinine Clr Calc Pharmacy 91.3 ml/min; Est GFR (African American) 115.1 ml/min; Est GFR (Non-African American) 99.3 ml/min; Potassium 4.4 mmol/L (3.5-5.1)
--- NOTE | 2022-08-12 15:54 | CT Scan Report ---
CT hip RT wo con CLINICAL HISTORY: Right hip pain. COMPARISON STUDY: CT of the abdomen and pelvis May 31, 2022. Right hip radiograph August 02 2. TECHNIQUE: Axial images of the right hip were obtained without intravenous contrast. Sagittal and cor onal reconstructions were viewed. Automated exposure control was utilized for the study. A dose lowe ring technique was utilized adhering to the principles of ALARA. FINDINGS: Alignment of the right hip is anatomic. There is no acute fracture. There is no suspicious osseous lesion. There is mild right hip joint space narrowing. There is moderate osteophytosis with s ubchondral cystic change within the superior acetabulum. There is no evidence for avascular necrosis. Adjacent soft tissues are unremarkable by CT. IMPRESSION: 1. No acute fracture within the right hip. 2. Mild joint space narrowing and moderate osteophytosis of the right hip with subchondral cystic kamila nge within the acetabulum consistent with osteoarthritis. ACT 112: Negative or not required by law. Electronically signed by: Christophe Cormier M.D. 08/12/2022 3:51 PM
--- NOTE | 2022-08-12 20:54 | Hospitalist Progress Note ---
Date of Service August 12, 2022 Assessment & Plan (1) Discitis: Plan: 62yo male history of known discitis/osteomyelitis at L1. Patient has extensive medical history with partial antibiotic treatment - complicated due to multiple hospitalizations, leaving AMA several times and most recently likely medication non-adherence with home regimen of Doxycycline and Levofloxacin. He left [facility] against medical advice recently (was supposed to d/c with PICC line with 1 month of IV vanco/aztreonam - since he left AMA he was sent out on doxy/levofloxacin). CRP minimally elevated Has history of polysubstance abuse (possible intranasal heroine use most recently?) and PICC line placement would not be ideal. Cont IV Vancomycin Cont Aztreonam 2gm IV q 8 hours as per ID recommendations As per ID recommendations If there is no plan for surgical intervention, he can continue IV vancomycin and Aztreonam for 4 weeksas recommended by [facility] prior to his AMA discharge on 07/23/22. Plan to complete therapy on 08/14/22 with ID follow up as previously scheduled.Patient is medically stable but too high risk to discharge home, pending placement at this time. [facility] vs. [facility] vs. [facility] - awaiting insurance authorization. He will likely need suppressive long-term PO abx therapy after completion of IV abx in the setting of retained spinal hardware. HIM request for all prior culture results from [facility] - pending at this time Follow up with neurosurgery as outpatient Patient to have case management discussed with him on Saturday regarding plans u sam discharge and coordination of his appointments with his primary care (2) Psoas abscess: Plan: Reduced in size per current MRI obtained this admission. By report psoas abscess I/D did not grow any specific pathogen. These were I/D by [facility] during previous admission there. Cont IV Vancomycin and Aztreonam. ID followup in 3 weeks recommended by [facility]. (3) Polysubstance use disorder: Plan: poor PICC line candidate (4) HTN (hypertension): Plan: BPs controlled has improved on metoprolol 50 mg and lisinopril 10 mg daily y (5) Lumbar spinal stenosis: Plan: severe at L1-L2 during prior admission Dr Clarke had recommended surgical intervention at tertiary care center he remains quite weak in the RLE with hip flexion and has difficulty walking by report he was evaluated by neurosurgery or ortho at [facility] surgical intervention deferred at [facility] by report As patient has right hip pain will obtain CT of the hip to rule out joint involvement .patient could have possible bursitis as he has point tenderness (6) Lower back pain: Plan: Presently on Naprosyn for pain control d/c acetaminophen per patient request Continue prn oxycodone cont Zanaflex q6h prn tramadol 100mg q6h prn he continues with significant pain poor candidate for long-acting pain meds (7) Tobacco dependence: Plan: nicoderm patch 21mg/day Plan Admission and Anticipated Discharge Date Admission Date: July 26, 2022 Subjective Patient anxious about securing his pain management with PCP appointments while discharge Patient reports pain over his right hip area otherwise no chest pain or shortness of breath Discussed overall plan regarding antibiotic continuation as well as coordination of his appointments upon discharge along with RN in the room Physical Exam Physical Exam: Head and ENT no thyroid enlargement trachea midline Cardiovascular S1-S2 are normal no S3 Lungs bilateral air entry fair no wheezing noted Abdomen soft nondistended Extremity shows trace edema Neurologically no focal deficits Right hip examined with RN point tenderness over joint space upon palpation Results & Data Results & Data ([facility]) Vital Signs (Past 12 Hours) Vital Signs Temp Pulse Resp BP Pulse Ox O2 Del Method 08/12/22 15:35 36.9 C 84 18 170/80 H 96 Room Air PG Care Time/CCT Total # of Minutes Spent Total Time Spent with Patient: Total time spent is greater than 50% in coordination of care (as documented) at patient's floor/unit and/or counseling patient: Coding Level of Care Code 23457 Subseq Hosp Care Lvl 2 Diagnoses Discitis M46.46 Spinal region: lumbar Psoas abscess K68.12 Polysubstance use disorder F19.90 HTN (hypertension) I10 Lumbar spinal stenosis M48.061 Lower back pain M54.50; G89.29 Back pain laterality: midline Chronicity: chronic Sciatica presence: without sciatica Tobacco dependence F17.200 (1) Discitis Spinal region: lumbar Qualified Code(s): M46.46 - Discitis, unspecified, lumbar region (2) Lower back pain Back pain laterality: midline Chronicity: chronic Sciatica presence: without sciatica Qualified Code(s): M54.50 - Low back pain, unspecified; G89.29 - Other chronic pain
[2022-08-13] MEDS: oxyCODONE HCL IR 5 MG TAB (IMMEDIATE RELEASE) PO PRN ×3 (00:17→23:28)
[2022-08-13] MEDS: traZODone HCL 50 MG TAB PO SCH (00:17)
[2022-08-13] MEDS: traMADol HCL 50 MG TABLET PO PRN ×2 (05:57→16:55)
[2022-08-13 07:01] LABS: Hematocrit (blood only) 30.1 % (40.1-51.0); Hemoglobin 9.2 g/dl (14.0-18.0); Mean Corpuscular Hemoglobin 24.9 pg (25.0-34.0); Mean Corpuscular Hgb Conc 30.6 g/dL (32.0-36.0); Mean Corpuscular Volume 81.4 fL (80.0-100.0); Mean Platelet Volume 8.9 fL (9.4-12.4); Platelet Count 399 K/uL (130-400); RDW Coefficient of Variation 14.6 % (11.5-14.5); RDW Standard Deviation 43.8 fL (36.4-46.3); White Blood Count 10.99 K/ul (4.8-10.8)
[2022-08-13] MEDS: AZTREONAM 1,000 MG in DEXTROSE 5% 100 ML IV SCH ×2 (07:35→16:13)
[2022-08-13] MEDS: ENOXAPARIN INJ 40 MG/0.4 ML SYR SQ SCH (07:36)
[2022-08-13] MEDS: lisinopril 10 MG TAB PO SCH (07:38)
[2022-08-13] MEDS: NICOTINE 21 MG/24 HR TDSY TD SCH (07:38)
[2022-08-13 07:43] LABS: BUN Creatinine Ratio 31.7 (10-20); Calcium 9.2 mg/dl (8.5-10.1); Creatinine Clr Calc Pharmacy 109.6 ml/min; Potassium 4.4 mmol/L (3.5-5.1)
--- NOTE | 2022-08-13 08:05 | Hospitalist Progress Note ---
Date of Service August 13, 2022 Assessment & Plan (1) Discitis: Plan: 62yo male history of known discitis/osteomyelitis at L1. Patient has extensive medical history with partial antibiotic treatment - complicated due to multiple hospitalizations, leaving AMA several times and most recently likely medication non-adherence with home regimen of Doxycycline and Levofloxacin. He left [facility] against medical advice recently (was supposed to d/c with PICC line with 1 month of IV vanco/aztreonam - since he left [place] he was sent out on doxy/levofloxacin). CRP minimally elevated --> now undetectable Has history of polysubstance abuse (possible intranasal heroine use most recently?) and PICC line placement would not be ideal. Cont IV Vancomycin Cont Aztreonam 2gm IV q 8 hours as per ID recommendations As per ID recommendations If there is no plan for surgical intervention, he can continue IV vancomycin and Aztreonam for 4 weeksas recommended by [facility] prior to his AMA discharge on 07/23/22. Plan to complete therapy on 08/14/22 with ID follow up as previously scheduled.Patient is medically stable but too high risk to discharge home, pending placement at this time. [facility] vs. [facility] vs. [facility] - awaiting insurance authorization. He will likely need suppressive long-term PO abx therapy after completion of IV abx in the setting of retained spinal hardware. HIM request for all prior culture results from [facility] - pending at this time Follow up with neurosurgery as outpatient Patient to have case management discussed with him on Saturday regarding plans upon discharge and coordination of his appointments with his primary care 08/13 --> Patient to have abx completed tomorrow. Not yet arranged outpatient ID follow up --> messaged prior ID provider to see if able to get recommendations temporarily to continue at d/c given hardware in his back to prevent any interruptions in abx/suppressive treatment Pain currently being controlled with Oxycodone, zanaflex, tramadol prn-- reports improvement with the zanaflex/tramadol combination Asking for new PCP CM to address needs for dc/ with patient today per his request, apparently unable to go to [facility] due to hx drug use Platelets elevated up until today, WBC 10.99, however patient is anemic as well. Remains AFEBRILE during entire stay Of note, patient refused last 3 injections of Lovenox and has been placed on scheduled Naproxen 375mg three times daily--> observed Hgb dropping to the 9s (was in 8s, but prior admit 11-12 range) Also repeated iron studies -- given infection, avoiding IV venofer, had been eating/drinking moving his bowels. --> patient reported to have taken LOTS OF NAPROXEN LAST ADMISSION -- WILL PLACE THIS ON HOLD AND WOULD AVOID NSAIDs, also believe patient with prior known kidney stones, denies urinary symptoms currently -- check fecal occult for completeness first Start PPI PO BID for prophylaxis given excessive NSAID use, denied abdominal pain on exam (however abd is distended, he reports weight gain while being inpatient, will also check a weight given trace LE edema) Will start PO BID given iron 20, trans % sat 4% and unsaturated IBC elevated to 426 (prior normal) but would like to wait for fecal occult to be collected to prevent false +, although do suspect (2) Psoas abscess: Plan: Reduced in size per current MRI obtained this admission. By report psoas abscess I/D did not grow any specific pathogen. These were I/D by [facility] during previous admission there. Cont IV Vancomycin and Aztreonam. ID followup in 3 weeks recommended by [facility] --> this was from the initial admission 07/27, which would be this Saturday (3) Polysubstance use disorder: Plan: poor PICC line candidate (4) HTN (hypertension): Plan: BPs controlled has improved on metoprolol 50 mg and lisinopril 10 mg daily Currently 154/71, elevations with pain (5) Lumbar spinal stenosis: Plan: severe at L1-L2 during prior admission Dr Clarke had recommended surgical intervention at tertiary care center he remains quite weak in the RLE with hip flexion and has difficulty walking by report he was evaluated by neurosurgery or ortho at [facility] surgical intervention deferred at [facility] by report Prior patient has right hip pain will obtain CT of the hip to rule out joint involvement .patient could have possible bursitis as he has point tenderness --> no infectious etiology (6) Lower back pain: Plan: Presently on Naprosyn for pain control --> STOPPED FOR NOW, suspect patient does have some underlying gastritis vs slow GI bleeding from NSAID use/alcohol [facility] prior d/c Continued on PO Oxycodone prn, zanaflex, tramadol Does report pain improving but still present Continue current regimen poor candidate for long-acting pain meds Needing outpt f/u ortho but would need at tertiary given Dr clarke prior stated his case would need anterior corpectomy not done at this facility (7) Tobacco dependence: Plan: nicoderm patch 21mg/day Plan continued inpatient stay abx to be completed tomorrow , seeing about immunosuppressive therapy given hardware in back CM to visit with patient about d/c planning as not able to arrange inpatient rehab STOP NSAIDs, check fecal occult, start PPI for GI prophylaxis Start PO ferrous sulfate BID Admission and Anticipated Discharge Date Admission Date: July 26, 2022 Supervising Physician Co-Signing Physician Notes PA Supervision Note: I did not personally see or examine the patient today, but I verified all berry points of NORBERT Beavers's assessment and plan with the following exceptions/additions: None Subjective eval around lunch, doing well muscle relaxer and tramadol most effective for longer pain control with baseline oxycontin use states followed with Dr Carrasco but female w/ issues last time and lots of anxiety about follow up/PCP maybe new PCP/rehab/living situation. Stated asked to talk with CM last saturday and not seen anyone, will ask them to touch base today as IV abx complete after tomorrow. States he feels infection about 50% resolved but his right leg is only about 25% improved and he wanted to work on this continued at rehab. No fever/chills. No chest pain/shortness of breath. Eating wel - states too much and thinks he's gained a bit of weight from eating better as he was losing weight to decrease pain on his back . Questions/concerns addressed at this time Review of Systems Review of Systems: All systems reviewed & are unremarkable except as noted in HPI & below Physical Exam Physical Exam: General: WD/obese male laying flat in bed on his laptop, NAD, but reporting pain with movements (although improved from days prior) HEENT; head normocephalic, atraumatic, mm slight dry, improved with drink of water, poorly groomed, facial hair Resp: CTAB, no w/c/r on room air CV RRR 80bpm, no m/r/g, pitting edema/calf tenderness, trace pedal edema MSK/Neuro: improvement in ROM b/l LE with less movement (wasn't even able to lift legs off bed last admission without significant pain), occasional spasm reported R hip with improvement in ROM (reported better than yesterday) Skin: warm, dry Psych: AOx3, anxious about things being arranged for at discharge Results & Data Results & Data ([facility]) Vital Signs (Past 12 Hours) Vital Signs Temp Pulse Resp BP BP Pulse Ox O2 Del Method 08/13/22 07:45 36.8 C 81 16 154/71 H 95 Room Air 08/12/22 21:51 36.8 C 84 18 166/87 H 96 Room Air Laboratory Results 08/13/22 08/13/22 08/12/22 Range/Units 06:27 06:27 11:04 WBC 10.99 H (4.8-10.8) K/ul RBC 3.70 L (4.63-6.08) M/uL Hgb 9.2 L (14.0-18.0) g/dl Hct 30.1 L (40.1-51.0) % MCV 81.4 (80.0-100.0) fL MCH 24.9 L (25.0-34.0) pg MCHC 30.6 L (32.0-36.0) g/dL RDW Std Deviation 43.8 (36.4-46.3) fL RDW Coeff of Adele 14.6 H (11.5-14.5) % Plt Count 399 (130-400) K/uL MPV 8.9 L (9.4-12.4) fL Sodium 137 137 (136-145) mmol/L Potassium 4.4 4.4 (3.5-5.1) mmol/L Chloride 103 104 (98-107) mmol/L Carbon Dioxide 28 29 (21-32) mmol/L Anion Gap 6 4 (3-11) BUN 19 19 (6-23) mg/dl Creatinine 0.60 0.72 (0.6-1.4) mg/dl Est Cr Clr Drug Dosing 109.6 91.3 ml/min Est GFR ( Amer) 124.0 115.1 ml/min Est GFR (Non-Af Amer) 107.0 99.3 ml/min BUN/Creatinine Ratio 31.7 H 26.4 H (10-20) Glucose 117 H 139 H (70-99(Fasting)) mg/dl Calcium 9.2 9.3 (8.5-10.1) mg/dl 08/12/22 Range/Units 11:04 WBC 11.39 H (4.8-10.8) K/ul RBC 3.64 L (4.63-6.08) M/uL Hgb 9.1 L (14.0-18.0) g/dl Hct 29.1 L (40.1-51.0) % MCV 79.9 L (80.0-100.0) fL MCH 25.0 (25.0-34.0) pg MCHC 31.3 L (32.0-36.0) g/dL RDW Std Deviation 42.6 (36.4-46.3) fL RDW Coeff of Adele 14.6 H (11.5-14.5) % Plt Count 427 H (130-400) K/uL MPV 8.7 L (9.4-12.4) fL Sodium (136-145) mmol/L Potassium (3.5-5.1) mmol/L Chloride (98-107) mmol/L Carbon Dioxide (21-32) mmol/L Anion Gap (3-11) BUN (6-23) mg/dl Creatinine (0.6-1.4) mg/dl Est Cr Clr Drug Dosing ml/min Est GFR ( Amer) ml/min Est GFR (Non-Af Amer) ml/min BUN/Creatinine Ratio (10-20) Glucose (70-99(Fasting)) mg/dl Calcium (8.5-10.1) mg/dl Diagnostic Findings Hip CT 08/12/22 13:39 CT hip RT wo con CLINICAL HISTORY: Right hip pain. COMPARISON STUDY: CT of the abdomen and pelvis May 31, 2022. Right hip radiograph August 02, 2022. TECHNIQUE: Axial images of the right hip were obtained without intravenous contrast. Sagittal and coronal reconstructions were viewed. Automated exposure control was utilized for the study. A dose lowering technique was utilized adhering to the principles of ALARA. FINDINGS: Alignment of the right hip is anatomic. There is no acute fracture. There is no suspicious osseous lesion. There is mild right hip joint space narrowing. There is moderate osteophytosis with subchondral cystic change within the superior acetabulum. There is no evidence for avascular necrosis. Adjacent soft tissues are unremarkable by CT. IMPRESSION: 1. No acute fracture within the right hip. 2. Mild joint space narrowing and moderate osteophytosis of the right hip with s ubchondral cystic change within the acetabulum consistent with osteoarthritis. ACT 112: Negative or not required by law. Electronically signed by: Christophe Cormier M.D. 08/12/2022 3:51 PM PG Care Time/CCT Total # of Minutes Spent Total Time Spent with Patient: Total time spent is greater than 50% in coordination of care (as documented) at patient's floor/unit and/or counseling patient: Coding Level of Care Code 70448 Subseq Hosp Care Lvl 3 Diagnoses Discitis M46.46 Spinal region: lumbar Psoas abscess K68.12 Polysubstance use disorder F19.90 HTN (hypertension) I10 Lumbar spinal stenosis M48.061 Lower back pain M54.50; G89.29 Back pain laterality: midline Chronicity: chronic Sciatica presence: without sciatica Tobacco dependence F17.200 (1) Lower back pain Back pain laterality: midline Chronicity: chronic Sciatica presence: without sciatica Qualified Code(s): M54.50 - Low back pain, unspecified; G89.29 - Other chronic pain (2) Discitis Spinal region: lumbar Qualified Code(s): M46.46 - Discitis, unspecified, lumbar region
[2022-08-13 08:53] LABS: Iron 20 mcg/dl (35-175); Total Iron Binding Cap Calc 446 mcg/dl (250-450); Transferrin (FE) Percent Satur 4 % (20-50); Unsaturated Iron Binding Cap 426 mcg/dl (155-355)
[2022-08-13] MEDS: NAPROXEN 375 MG TAB PO SCH (08:54)
[2022-08-13] MEDS: VANCOMYCIN HCL 1,500 MG in SODIUM CHLORIDE 0.9% 500 ML IV SCH ×2 (08:54→21:55)
[2022-08-13] MEDS: METOPROLOL SUCC 50MG EXT REL TAB PO SCH (08:54)
[2022-08-13] MEDS: ADVANCED PROBIOTIC 1250 MG CAPSULE PO SCH (08:54)
[2022-08-13] MEDS: PANTOprazole 40 MG TAB PO SCH (21:56)
[2022-08-13] MEDS: tiZANidine HCL 4 MG TABLET PO PRN (22:58)
[2022-08-13] MEDS ORDERED: FLUARIX QUADRIVALENT 0.5 ML SYR IM ONE (23:40)
[2022-08-14] MEDS: AZTREONAM 1,000 MG in DEXTROSE 5% 100 ML IV SCH ×4 (02:29→23:29)
[2022-08-14] MEDS: traZODone HCL 50 MG TAB PO SCH (02:30)
[2022-08-14] MEDS: traMADol HCL 50 MG TABLET PO PRN ×3 (04:36→23:28)
[2022-08-14] MEDS: ENOXAPARIN INJ 40 MG/0.4 ML SYR SQ SCH (07:27)
[2022-08-14] MEDS: lisinopril 10 MG TAB PO SCH (07:27)
[2022-08-14 07:37] LABS: Hematocrit (blood only) 30.3 % (40.1-51.0); Hemoglobin 9.2 g/dl (14.0-18.0); Mean Corpuscular Hemoglobin 24.5 pg (25.0-34.0); Mean Corpuscular Hgb Conc 30.4 g/dL (32.0-36.0); Mean Corpuscular Volume 80.8 fL (80.0-100.0); Mean Platelet Volume 8.8 fL (9.4-12.4); Platelet Count 451 K/uL (130-400); RDW Coefficient of Variation 14.6 % (11.5-14.5); Red Blood Count 3.75 M/uL (4.63-6.08); White Blood Count 11.71 K/ul (4.8-10.8)
[2022-08-14 08:04] LABS: Anion Gap 4 (3-11); Blood Urea Nitrogen 17 mg/dl (6-23); C Reactive Protein < 0.50 mg/dl (0-0.5); Calcium 9.2 mg/dl (8.5-10.1); Carbon Dioxide 29 mmol/L (21-32); Chloride 104 mmol/L (98-107); Creatinine Clr Calc Pharmacy 114.8 ml/min; Est GFR (African American) 121.6 ml/min; Est GFR (Non-African American) 104.9 ml/min; Glucose 113 mg/dl (70-99(Fasting)); Potassium 4.4 mmol/L (3.5-5.1); Sodium 137 mmol/L (136-145)
--- NOTE | 2022-08-14 08:12 | Hospitalist Progress Note ---
Date of Service August 14, 2022 Assessment & Plan (1) Discitis: Plan: 62yo male history of known discitis/osteomyelitis at L1. Patient has extensive medical history with partial antibiotic treatment - complicated due to multiple hospitalizations, leaving [facility] several times and most recently likely medication non-adherence with home regimen of Doxycycline and Levofloxacin. He left [facility] against medical advice recently (was supposed to d/c with PICC line with 1 month of IV vanco/aztreonam - since he left [facility] he was sent out on doxy/levofloxacin). CRP minimally elevated --> now undetectable Has history of polysubstance abuse (possible intranasal heroine use most recently?) and PICC line placement would not be ideal. Cont IV Vancomycin Cont Aztreonam 2gm IV q 8 hours as per ID recommendations As per ID recommendations If there is no plan for surgical intervention, he can continue IV vancomycin and Aztreonam for 4 weeksas recommended by [facility] prior to his AMA discharge on 07/23/22. Plan to complete therapy on 08/14/22 with ID follow up as previously scheduled.Patient is medically stable but too high risk to discharge home, pending placement at this time. [place] [facility] vs. [facility] vs. [facility] - awaiting insurance authorization. He will likely need suppressive long-term PO abx therapy after completion of IV abx in the setting of retained spinal hardware. HIM request for all prior culture results from [facility] - pending at this time Follow up with neurosurgery as outpatient 08/13 --> Patient to have abx completed however not had ID follow up yet. Messaged ID for repeat consultation for recs for d/c while arranging f/u Of note, patient refused last 3 injections of Lovenox and has been placed on scheduled Naproxen 375mg three times daily--> observed Hgb dropping to the 9s (was in 8s, but prior admit 11-12 range) Also repeated iron studies -- given infection, avoiding IV venofer, had been eating/drinking moving his bowels. --> patient reported to have taken LOTS OF NAPROXEN LAST ADMISSION , DISCONTINUED prior TID dosing ordered Naproxen -- fecal occult for completeness first given patient reports moving his bowels, NEGATIVE Started PPI PO BID for prophylaxis given excessive NSAID use Will start PO BID given iron 20, trans % sat 4% and unsaturated IBC elevated to 426 (prior normal) but would like to wait for fecal occult to be collected to prevent false +, although do suspect 08/14 ID seen, reasonable to continue IV for today, consider transitioning to DOxy 100mg BID and Levaquin 750mg daily (caveat prior prolonged QTC, now normal 464). Consider d/c cyclobenzaprine and continue the tramadol as patient reporting improvements of control w/ combo tramadol/zanaflex WBC elevation without fever, patient reporting he has been continuinally improving CM assisting in arranging f/u PCP vs new PCP appointment pending them being comfortable continuing pain control (patient reports can go weekly if needed) vs pain management f/u Start ferrous sulfate BID for SARITA, hgb stable 9.2 ESR down to 22, CRP <0.5 Consider repeat MRI spine 1 month after competition of abx or sooner if any worsened symptoms if subsequent course w/ worsened osteomyelitis/discitis, favor bone bx (off abx to increase yield) If able to transition to PO abx tomorrow, consider d/c. Patient does have >30k $ in security. has been provided information from CM regarding housing (has not called) but ok w/ staying in hotel and f/u PCP if appointments are made ID appt made for 08/28, PCP being arranged (2) Psoas abscess: Plan: Reduced in size per current MRI obtained this admission. By report psoas abscess I/D did not grow any specific pathogen. These were I/D by [facility] during previous admission there. Cont IV Vancomycin and Aztreonam. Outpatient ID being arranged as above Will need immunosuppressive therapy w/ Doxy/Levaquin and outpt f/u (3) Polysubstance use disorder: Plan: poor PICC line candidate (4) HTN (hypertension): Plan: BPs controlled has improved on metoprolol 50 mg and lisinopril 10 mg daily Currently 169/76 but will give additional 10mg lisinopril for tonight and change AM dose to 20mg daily Monitor BP (5) Lumbar spinal stenosis: Plan: severe at L1-L2 during prior admission Dr Clarke had recommended surgical intervention at tertiary care center he remains quite weak in the RLE with hip flexion and has difficulty walking by report he was evaluated by neurosurgery or ortho at [facility] surgical intervention deferred at [facility] by report Prior patient has right hip pain will obtain CT of the hip to rule out joint involvement .patient could have possible bursitis as he has point tenderness --> no infectious etiology Need outpt ortho spine tertiary that can be arranged by PCP in follow up (6) Lower back pain: Plan: Presently on Naprosyn for pain control --> STOPPED FOR NOW, suspect patient does have some underlying gastritis vs slow GI bleeding from NSAID use/alcohol [facility] prior d/c Continued on PO Oxycodone prn, zanaflex, tramadol -- DISCONTINUED NAPROXEN Does report pain improving but still present Continue current regimen poor candidate for long-acting pain meds Needing outpt f/u ortho but would need at tertiary given Dr clarke prior stated his case would need anterior corpectomy not done at this facility No CVA tenderness but of note, UA on admit COMPLETELY benign (7) Tobacco dependence: Plan: nicoderm patch 21mg/day STOP NSAIDs, check fecal occult, start PPI for GI prophylaxis Start PO ferrous sulfate BID Plan continued inpatient stay, possible transition to PO Levaquin/Doxy tomorrow and discharge if feeling stable/PCP arrangements made for follow up CM arranged ID f/u for 08/28 Admission and Anticipated Discharge Date Admission Date: July 26, 2022 Supervising Physician Co-Signing Physician Notes Attending Attestation - Chart reviewed in detail, care plan d/w PA Lisseth Beavers. I agree w/ the berry components of her documentation. Allan Vela MD Subjective Patient evaluated this morning. Laying in bed. Pain controlled. On laptop, seen by ID this morning and considering switching to PO abx but will need to touch base. No fever/chills, good appetite. Started PO iron, has been eating/drinking/moving his bowels without issue. Urine light yellow/clear reported. Awaiting follow up/ID/appts and then once established will plan for d.c. Did discuss can d/c to [facility], but wanting to make sure follow up arranged. He is thankful for assistance and states the last time he was hear he was self medicating due to running out of meds and PCP never returned call and he didn't remember being here for two days but is inquiring how he was acting as he would have done anything to take the pain away. Review of Systems Review of Systems: All systems reviewed & are unremarkable except as noted in HPI & below Physical Exam Physical Exam: General: WD/obese male laying flat in bed on his laptop, NAD, but reporting pain with movements , however again much more comfortable moving about in the room/bed HEENT; head normocephalic, atraumatic, mm slight dry, improved with drink of water, poorly groomed, facial hair Resp: CTAB, no w/c/r on room air CV RRR 80bpm, no m/r/g, pitting edema/calf tenderness, trace pedal edema almost resolved MSK/Neuro: improvement in ROM b/l LE with less movement (wasn't even able to lift legs off bed last admission without significant pain), occasional spasm reported R hip with improvement in ROM (reported better than yesterday) Skin: warm, dry Psych: AOx3, thankful for having ID consultation/CM visit Results & Data Results & Data ([facility]) Vital Signs (Past 12 Hours) Vital Signs Temp Pulse Resp BP Pulse Ox O2 Del Method 08/14/22 07:17 36.9 C 85 18 174/76 H 99 Room Air 08/14/22 07:33 80 169/76 H 08/14/22 07:15 36.9 C 5 L 08/13/22 22:15 36.7 C 85 18 154/81 H 98 Room Air Laboratory Results 08/14/22 08/14/22 08/14/22 Range/Units 07:17 07:17 07:17 WBC (4.8-10.8) K/ul RBC (4.63-6.08) M/uL Hgb (14.0-18.0) g/dl Hct (40.1-51.0) % MCV (80.0-100.0) fL MCH (25.0-34.0) pg MCHC (32.0-36.0) g/dL RDW Std Deviation (36.4-46.3) fL RDW Coeff of Adele (11.5-14.5) % Plt Count (130-400) K/uL MPV (9.4-12.4) fL ESR 22 H (0-20) mm/hr Sodium 137 (136-145) mmol/L Potassium 4.4 (3.5-5.1) mmol/L Chloride 104 (98-107) mmol/L Carbon Dioxide 29 (21-32) mmol/L Anion Gap 4 (3-11) BUN 17 (6-23) mg/dl Creatinine 0.63 (0.6-1.4) mg/dl Est Cr Clr Drug Dosing 114.8 ml/min Est GFR ( Amer) 121.6 ml/min Est GFR (Non-Af Amer) 104.9 ml/min BUN/Creatinine Ratio 27.0 H (10-20) Glucose 113 H (70-99(Fasting)) mg/dl Calcium 9.2 (8.5-10.1) mg/dl Magnesium 2.0 (1.7-2.4) mg/dl Iron (35-175) mcg/dl TIBC (250-450) mcg/dl Unsaturated IBC (155-355) mcg/dl Transferrin % Sat (20-50) % C-Reactive Protein < 0.50 (0-0.5) mg/dl Stool Occult Bld Scrn (Negative) Random Vancomycin 15.5 (10-20) mcg/ml 08/14/22 08/14/22 08/13/22 Range/Units 07:17 07:10 06:27 WBC 11.71 H (4.8-10.8) K/ul RBC 3.75 L (4.63-6.08) M/uL Hgb 9.2 L (14.0-18.0) g/dl Hct 30.3 L (40.1-51.0) % MCV 80.8 (80.0-100.0) fL MCH 24.5 L (25.0-34.0) pg MCHC 30.4 L (32.0-36.0) g/dL RDW Std Deviation 43.0 (36.4-46.3) fL RDW Coeff of Adele 14.6 H (11.5-14.5) % Plt Count 451 H (130-400) K/uL MPV 8.8 L (9.4-12.4) fL ESR (0-20) mm/hr Sodium (136-145) mmol/L Potassium (3.5-5.1) mmol/L Chloride (98-107) mmol/L Carbon Dioxide (21-32) mmol/L Anion Gap (3-11) BUN (6-23) mg/dl Creatinine (0.6-1.4) mg/dl Est Cr Clr Drug Dosing ml/min Est GFR ( Amer) ml/min Est GFR (Non-Af Amer) ml/min BUN/Creatinine Ratio (10-20) Glucose (70-99(Fasting)) mg/dl Calcium (8.5-10.1) mg/dl Magnesium (1.7-2.4) mg/dl Iron 20 L (35-175) mcg/dl TIBC 446 (250-450) mcg/dl Unsaturated IBC 426 H (155-355) mcg/dl Transferrin % Sat 4 L (20-50) % C-Reactive Protein (0-0.5) mg/dl Stool Occult Bld Scrn Negative (Negative) Random Vancomycin (10-20) mcg/ml PG Care Time/CCT Total # of Minutes Spent Total Time Spent with Patient: Total time spent is greater than 50% in coordination of care (as documented) at patient's floor/unit and/or counseling patient: Coding Level of Care Code 26890 Subseq Hosp Care Lvl 3 Diagnoses Discitis M46.46 Spinal region: lumbar Psoas abscess K68.12 Polysubstance use disorder F19.90 HTN (hypertension) I10 Lumbar spinal stenosis M48.061 Lower back pain M54.50; G89.29 Back pain laterality: midline Chronicity: chronic Sciatica presence: without sciatica Tobacco dependence F17.200 (1) Lower back pain Back pain laterality: midline Chronicity: chronic Sciatica presence: without sciatica Qualified Code(s): M54.50 - Low back pain, unspecified; G89.29 - Other chronic pain (2) Discitis Spinal region: lumbar Qualified Code(s): M46.46 - Discitis, unspecified, lumbar region
[2022-08-14] MEDS: ADVANCED PROBIOTIC 1250 MG CAPSULE PO SCH (08:26)
[2022-08-14] MEDS: PANTOprazole 40 MG TAB PO SCH ×2 (08:26→20:43)
[2022-08-14] MEDS: METOPROLOL SUCC 50MG EXT REL TAB PO SCH (08:26)
[2022-08-14] MEDS: NICOTINE 21 MG/24 HR TDSY TD SCH (08:28)
[2022-08-14] MEDS: VANCOMYCIN HCL 1,500 MG in SODIUM CHLORIDE 0.9% 500 ML IV SCH ×2 (08:38→20:44)
--- NOTE | 2022-08-14 09:04 | Pharmacy Report ---
Pharmacy Vanc AUC Short Note - Date of Service August 14, 2022 - Assessment & Plan Assessment 62 year old M receiving vancomycin and aztreonam for treatment of discitis and abscess of psoas. Pertinent microbiologic data includes: no growth from blood cultures of 07/26/22 Day # 19 of vancomycin treatment. Plan Vancomycin * Current regimen: 1500 mg IV every 12 hours * AUC/FRANCISCO is the preferred PK/PD target for vancomycin * AUC guided dosing is effective and associated with decreased risk of nephrotoxicity compared to traditional trough targets * Trough level of 15.5 mcg/mL is predicted to achieve target AUC/FRANCISCO of 507 mg/L.hr and may be associated with a 8% risk of nephrotoxicity Pharmacy will continue to follow and will adjust dose/frequency as necessary. Thank you.
[2022-08-14] MEDS: oxyCODONE HCL IR 5 MG TAB (IMMEDIATE RELEASE) PO PRN ×2 (09:10→17:40)
--- NOTE | 2022-08-14 09:37 | Infectious Disease Progress Nt ---
Date of Service August 14, 2022 Assessment & Plan (1) Psoas abscess: (2) Lower back pain: (3) Leukocytosis: (4) Discitis: Plan This is a 62 year old male with a history of HTN, osteoarthritis, polysubstance abuse, HFpEF, right TKR, multiple back surgeries, reportedly s/p removal of prior posterior instrumentation from L3-S1 with repeat posterior spinal fusion at L2-L3 and L3-L4 in 2019, recent diagnosis of lumbar spine osteomyelitis with psoas abscess who presented to the ED on 07/26/22 with worsening back pain. He was initially admitted to [facility] on 05/31/22 with weakness and back pain. He was diagnosed with L1-L2 osteomyelitis/discitis and bilateral psoas abscess. Imaging also noted pedicle screws and rods from L2-S1. Spinal surgery recommended transfer to a tertiary center and patient received a dose of Daptomycin and cefepime. He was transferred to [facility], where he was admitted from 06/01/22-07/05/22. A CT spine there showed L1-L2 discitis/osteomyelitis with possible epidural abscess and psoas abscess. He was evaluated by neurosurgery and did not undergo surgical intervention. He underwent IR guided psoas abscess drainage with right-sided drain placement on 06/02. A TTE on 06/07/2022 was technically difficult but showed normal EF and normal valves. A 06/14/22 MRI spine showed extensive postsurgical changes of lumbosacral spine with evidence of paraspinal enhancement and bilateral abscesses with likely component of osteomyelitis at L1. On 06/18 exchange of right sided drain was requested due to minimal output. CT abdomen pelvis with contrast on 06/25/22 showed that the bilateral psoas collections had much impro abner measuring approximately 1.9 cm. Daptomycin was discontinued on 06/01 secondary to elevated CPK. He was treated with IV vancomycin and aztreonam throughout his admission. He was evaluated by [facility] who recommended antibiotics through 07/14/22 and repeat MRI after completion of antibiotics. The patient left AMA on 07/05/2022 (does not appear he was discharged with antibiotics). Culture results are not available in review of available information in EMR but per report by primary team, cultures at [facility] were sterile. Approximately 1 week post AMA discharge on 07/11, he was brought to [facility] by his niece after being found altered, disheveled in a hotel and there was concern that he could not take care of himself. A Utox on that admission was positive for amphetamine, MDMA, benzos and cocaine. A lumbar spine MRI on 07/12/22 showed a decrease in size of the bilateral psoas abscesses when compared to initial MRI study from 05/31/22. The L1-L2 discitis and osteomyelitis was unchanged. There was some concern however that the size of the psoas collections had increased in size from 06/25 imaging results at [facility] (1.9 cm vs 2.2 x 1.6cm) He was again transferred to [facility] on 07/13/22 for reevaluation of worsening infection and need for neurosurgical intervention. He was restarted on Aztreonam and vancomycin. A Lumbar spine MRI done at [facility] on 07/14/22 showed improved focal right and left psoas abscesses, persistent anterior and bilateral paraspinal phlegmonous changes extending from L1-L2 disc space and over the L2 vertebral body segment. He was evaluated by Neurosurgery, Interventional Radiology and Infectious Disease. No surgical intervention was deemed necessary by Neurosurgery; IR felt his abscesses were not large enough for intervention; [facility] recommended that he complete Vancomycin and Aztreonam for 4 weeks (approximate end date 08/11/22) with ID follow up in 3 weeks post discharge. He unfortunately again left AMA on 07/23/22. He was discharged on oral Levaquin and Doxycycline to complete a 4 week course as a suboptimal option in setting of leaving AMA. He returns to [facility] 3 days after this AMA discharge on 07/26/22 with worsening back pain and leg weakness. He reports taking Doxycycline and Levaquin but admits to missing doses. On presentation, he was afebrile with WBC 13.8, ESR 32, CRP 0.58. A lumbar MRI done on 07/26/22 re- demonstrated findings of discitis osteomyelitis at L1-L2, unchanged severe canal stenosis at L1-L2, and interval continued decrease in size in bilateral psoas abscesses (R 2.2 cm --> 1.8 cm, L 1.1 cm --> 0.7 cm). He received a dose of Daptomycin and Cefepime, and was then transitioned to Aztreonam and Vancomycin. Micro: Per report, cultures at [facility] since 05/2022 have been sterile Blood cultures sterile at prior [facility] admissions 07/26 BCx NG Abx course (per available notes): Cefepime 05/31-06/06, 07/26 daptomycin 05/31-06/01, 07/26 Vancomycin ~06/02-07/02, 07/14-07/23, 07/26- ongoing Aztreonam ?-07/02, 07/14-07/23, 07/26- ongoing Doxycycline 07/23-07/26 with intermittent adherence Levofloxacin 07/23-07/26 with intermittent adherence Problems: 1. Chronic Lumbar spine osteomyelitis/diskitis 2. Bilateral psoas abscess -BCx and abscess cultures sterile per report and per review of available records and culture date -interrupted antibiotic therapy -has been on vancomycin, aztreonam, cefepime, daptomycin, doxycycline, levaquin on and off since 05/2022 3. History of leaving AMA 4. Polysubstance abuse 5. Housing instability 6. Lumbar spinal hardware Recommendations: It appears that the patient completed almost 5 weeks of broad IV antibiotics through 07/02, and ~4.5 weeks of broad spectrum IV antibiotics from 07/14-08/14 (with ~3 days of intermittent adherence to PO doxy and levo from 07/23-07/26). Most recent imaging from 07/26 MRI redemonstrated discitis/osteomyelitis, and showed decrease in size of bilateral psoas abscesses. Whether he is ready to transition from IV to PO antibiotics is unclear--pts with vertebral osteomyelitis are often treated with 6-12 weeks of IV antibiotics or highly bioavailable PO antibiotics. Repeat imaging could be considered, but w ould likely be difficult to interpret, as there is generally a delay in radiologic improvement of vertebral osteomyelitis/discitis despite appropriate antibiotic treatment. He is not eligible for a PICC line, and discharge to SNF does not seem to be an option per CM notes. Today 08/14, he continues with stable mild leukocytosis to 11.7, overall decreased ESR to 22 (from 31 on 07/13), and normalized CRP <0.5 (from 2.52 on 07/12). Pt continues to have lower back pain, improved from prior. Given his overall clinical improvement, it may be reasonable to transition his IV antibiotics to PO antibiotics--for suppression in the setting of spinal hardware, and for continued coverage of psoas abscesses: -Would consider doxycycline 100 mg PO BID and levofloxacin 750 mg PO q24h, with the caveat that he was noted to have a prolonged QTc > 500 on 07/10. Home meds include cyclobenzaprine and tramadol, which can both prolong QTc in conjunction with levofloxacin. His QTc is normal today at 464. Would try to minimize QTc prolonging medications. -Would ensure close follow-up with infectious disease as an outpatient in ~2 weeks. -Should have QTc rechecked at follow-up. If there is concern for QTc prol ongation, could consider an alternative such as amox/clav or cefpodoxime (although these have lower bioavailability) -In the setting of spinal hardware and concern for hardware-associated osteomyelitis, he should ideally continue on oral antibiotics for suppression. Unfortunately, we have no positive cultures to help direct antibiotic therapy, so his suppressive antibiotic regimen is broad. The duration of oral antibiotics will be a risk/benefit discussion with the patient, with the risk of recurrent infection vs the adverse effects of prolonged antibiotics -Would consider a repeat MRI spine in follow-up (perhaps 1 month after completion of IV antibiotics, or sooner if he is having worsened symptoms) -If subsequent course shows worsened osteomyelitis/discitis, would favor a bone biopsy (off of antibiotics to increase yield) -The above was discussed with the patient and he verbalized understanding. -Will sign off. Please reach out with any further questions Admission and Anticipated Discharge Date Admission Date: July 26, 2022 Subjective Subsequent visit was provided via telemedicine using two-way real-time interactive telecommunication between the patient and the telemedicine provider. For the duration of the visit, the provider was performing the assessment from a different facility than the patient. This includesuse of bluetooth stethoscope forauscultationperformed by the telepresenter that the telemedicine provider can hear if described in the physical exam. [employer] contact information: Please call [facility] . (Phone Number For Physician Use Only) After establishing a telemedicine visit, patient was: Patient was verified with two unique identifiers, Patient/authorized rep acknowledged consent and understanding and Gave permission to continue telehealth session Subsequent Time Spent w Inpatient: 25 minutes Pt reports continued lower back pain, but overall improved from prior Review of System A complete ROS was performed and is negative except as mentioned in the HPI. Physical Exam Physical Exam: GEN: Well-appearing, in NAD. HEENT: Normocephalic, atraumatic. RESP: No increased work of breathing NEURO: Alert and oriented. Answers all questions appropriately. Speech not slurred. PSYCH: Normal mood, affect appropriate. Results & Data ([facility]) Vital Signs (Past 12 Hours) Vital Signs Temp Pulse Resp BP Pulse Ox O2 Del Method 08/14/22 07:17 36.9 C 85 18 174/76 H 99 Room Air 08/14/22 07:33 80 169/76 H 08/14/22 07:15 36.9 C 5 L 08/13/22 22:15 36.7 C 85 18 154/81 H 98 Room Air Laboratory Results Short CBC 08/14/22 Range/Units 07:17 WBC 11.71 H (4.8-10.8) K/ul Hgb 9.2 L (14.0-18.0) g/dl Hct 30.3 L (40.1-51.0) % Plt Count 451 H (130-400) K/uL BMP 08/14/22 07:17 Sodium 137 Potassium 4.4 Chloride 104 Carbon Dioxide 29 BUN 17 Creatinine 0.63 Glucose 113 H Calcium 9.2 Diagnostic Findings Microbiology 07/26/22 16:55 Blood Aerobic Blood Culture - Final No growth in Aerobic bottle after 5 days. 07/26/22 16:55 Blood Anaerobic Blood Culture - Final No growth in Anaerobic bottle after 5 days. 07/26/22 15:52 Blood Aerobic Blood Culture - Final No growth in Aerobic bottle after 5 days. 07/26/22 15:52 Blood Anaerobic Blood Culture - Final No growth in Anaerobic bottle after 5 days. Medications Administered Current Inpatient Medications Clonidine HCl (Clonidine Hcl 0.1 Mg Tab) 0.1 mg PO Q8H PRN PRN Reason: sbp >185 or dbp >95 Stop: 08/26/22 17:02 Enoxaparin Sodium (Enoxaparin Inj 40 Mg/0.4 Ml Syr) 40 mg SQ QAM [facility] Stop: 08/27/22 08:59 Last Admin: 08/14/22 07:27 Dose: Not Given Ferrous Sulfate (Ferrous Sulfate 325 Mg Tab) 325 mg PO BIDM [facility] Stop: 09/12/22 16:59 Aztreonam 1,000 mg/ Dextrose 110 mls @ 100 mls/hr IV Q8H [facility]; Protocol Stop: 09/06/22 22:59 Last Infusion: 08/14/22 08:38 Dose: Infused Vancomycin HCl 1,500 mg/ (Sodium Chloride) 530 mls @ 200 mls/hr IV Q12H [facility]; Protocol Stop: 09/18/22 20:59 Last Admin: 08/14/22 08:38 Dose: 200 mls/hr Lactobacillus Acidophilus (Advanced Probiotic 1250 Mg Capsule) 2 cap PO DAILY [facility] Stop: 08/31/22 15:14 Last Admin: 08/14/22 08:26 Dose: 2 cap Lisinopril (Lisinopril 10 Mg Tab) 10 mg PO QAM [facility] Stop: 09/07/22 08:59 Last Admin: 08/14/22 07:27 Dose: Not Given Metoprolol Succinate (Metoprolol Succ 50mg Ext Rel Tab) 50 mg PO QAM [facility] Stop: 08/31/22 08:59 Last Admin: 08/14/22 08:26 Dose: 50 mg Miscellaneous (Remove Nicoderm Patch) 1 each N/A Q24H [facility] Stop: 09/08/22 19:58 Last Admin: 08/14/22 08:26 Dose: 1 each Miscellaneous Information (Vancomycin Consult Active) 1 each N/A UD PRN PRN Reason: Consult Stop: 08/25/22 22:51 Naloxone HCl (Naloxone Hcl 0.4 Mg/1 Ml Vial/Carp) 0.4 mg IV UD PRN PRN Reason: overdose Stop: 08/25/22 22:51 Naproxen (Naproxen 375 Mg Tab) 375 mg PO BID [facility] Stop: 09/03/22 08:59 Last Admin: 08/13/22 08:54 Dose: 375 mg Nicotine (Nicotine 21 Mg/24 Hr Tdsy) 21 mg TD Q24H [facility] Stop: 09/07/22 19:59 Last Admin: 08/14/22 08:28 Dose: 21 mg Ondansetron HCl (Ondansetron Inj 2 Mg/Ml 2 Ml Vial) 4 mg IV Q6H PRN PRN Reason: Nausea And Vomiting Stop: 08/25/22 22:51 Oxycodone HCl (Oxycodone Hcl Ir 5 Mg Tab (Immediate Release)) 10 mg PO Q6H PRN PRN Reason: Moderate Pain Stop: 08/16/22 15:16 Last Admin: 08/14/22 09:10 Dose: 10 mg Pantoprazole Sodium (Pantoprazole 40 Mg Tab) 40 mg PO BID [facility] Stop: 09/12/22 20:59 Last Admin: 08/14/22 08:26 Dose: 40 mg Polyethylene Glycol (Polyethylene (Miralax) 17 Gm Pack) 17 gm PO DAILY PRN PRN Reason: Constipation Stop: 08/25/22 22:51 Tizanidine HCl (Tizanidine Hcl 4 Mg Tablet) 2 mg PO Q6H PRN PRN Reason: Muscle Spasm Stop: 08/27/22 07:38 Last Admin: 08/13/22 22:58 Dose: 2 mg Tramadol HCl (Tramadol Hcl 50 Mg Tablet) 100 mg PO Q6H PRN PRN Reason: pain Stop: 08/31/22 17:44 Last Admin: 08/14/22 04:36 Dose: 100 mg Trazodone HCl (Trazodone Hcl 50 Mg Tab) 50 mg PO DAILY@0100 [facility] Stop: 09/06/22 00:59 Last Admin: 08/14/22 02:30 Dose: 50 mg (1) Lower back pain Back pain laterality: midline Chronicity: chronic Sciatica presence: without sciatica Qualified Code(s): M54.50 - Low back pain, unspecified; G89.29 - Other chronic pain (2) Leukocytosis Leukocytosis type: unspecified Qualified Code(s): D72.829 - Elevated white blood cell count, unspecified
--- NOTE | 2022-08-14 14:14 | Electrocardiogram Report ---
Test Reason : Blood Pressure : / mmHG Vent. Rate : 089 BPM Atrial Rate : 089 BPM P-R Int : 152 ms QRS Dur : 120 ms QT Int : 382 ms P-R-T Axes : 000 -24 033 degrees QTc Int : 464 ms Normal sinus rhythm Right bundle branch block T wave abnormality, consider lateral ischemia Abnormal ECG When compared with ECG of 10-JUL-2022 22:33, Significant changes have occurred Confirmed by Mateo Young ([id number]) on 08/14/2022 2:14:25 PM Referred By: REFERRED SELF Confirmed By:Mateo Young
[2022-08-14] MEDS: KETOCONAZOLE 2% CR 15 GM TUBE EXT PRN (15:43)
[2022-08-14] MEDS: FERROUS SULFATE 325 MG TAB PO SCH (15:43)
[2022-08-14] MEDS ORDERED: lisinopril 5 MG TAB PO ONE (18:00)
[2022-08-15] MEDS: traZODone HCL 50 MG TAB PO SCH ×2 (00:34→22:32)
[2022-08-15] MEDS: tiZANidine HCL 4 MG TABLET PO PRN ×2 (00:35→11:44)
[2022-08-15] MEDS: oxyCODONE HCL IR 5 MG TAB (IMMEDIATE RELEASE) PO PRN ×3 (04:50→22:37)
[2022-08-15] MEDS: KETOCONAZOLE 2% CR 15 GM TUBE EXT PRN (08:12)
[2022-08-15] MEDS: traMADol HCL 50 MG TABLET PO PRN ×2 (09:01→18:33)
[2022-08-15] MEDS: AZTREONAM 1,000 MG in DEXTROSE 5% 100 ML IV SCH (09:01)
[2022-08-15] MEDS: METOPROLOL SUCC 50MG EXT REL TAB PO SCH (09:02)
[2022-08-15] MEDS: FERROUS SULFATE 325 MG TAB PO SCH ×2 (09:02→17:01)
[2022-08-15] MEDS: ADVANCED PROBIOTIC 1250 MG CAPSULE PO SCH (09:02)
[2022-08-15] MEDS: ENOXAPARIN INJ 40 MG/0.4 ML SYR SQ SCH (09:03)
[2022-08-15] MEDS: NICOTINE 21 MG/24 HR TDSY TD SCH (09:03)
[2022-08-15] MEDS: PANTOprazole 40 MG TAB PO SCH ×2 (09:04→20:18)
[2022-08-15] MEDS: lisinopril 20 MG TAB PO SCH (09:05)
[2022-08-15] MEDS: VANCOMYCIN HCL 1,500 MG in SODIUM CHLORIDE 0.9% 500 ML IV SCH (10:07)
[2022-08-15] MEDS: levoFLOXacin 750 MG TAB PO SCH ×2 (11:44→12:38)
[2022-08-15] MEDS: DOXYCYCLINE HYCLATE 100 MG CAP PO SCH ×3 (11:44→20:18)
[2022-08-15 15:35] LABS: Hematocrit (blood only) 29.6 % (40.1-51.0); Hemoglobin 9.3 g/dl (14.0-18.0); Mean Corpuscular Hgb Conc 31.4 g/dL (32.0-36.0); Mean Corpuscular Volume 79.6 fL (80.0-100.0); Mean Platelet Volume 8.7 fL (9.4-12.4); Platelet Count 435 K/uL (130-400); RDW Coefficient of Variation 14.7 % (11.5-14.5); RDW Standard Deviation 42.8 fL (36.4-46.3); Red Blood Count 3.72 M/uL (4.63-6.08); White Blood Count 13.74 K/ul (4.8-10.8)
[2022-08-15 15:58] LABS: Calcium 9.1 mg/dl (8.5-10.1); Creatinine Clr Calc Pharmacy 86.7 ml/min; Est GFR (Non-African American) 93.2 ml/min; Potassium 4.2 mmol/L (3.5-5.1)
--- NOTE | 2022-08-15 19:19 | Hospitalist Progress Note ---
Date of Service August 15, 2022 Assessment & Plan (1) Discitis: Plan: L1-L2. Prior antibiotic use per the medical record: Cefepime 05/31-06/06, 07/26 daptomycin 05/31-06/01, 07/26 Vancomycin ~06/02-07/02, 07/14-07/23, 07/26-08/15 AM Aztreonam ?-07/02, 07/14-07/23, 07/26- 08/15 AM Doxycycline 07/23-07/26 (following AMA d/c from [facility]) Levofloxacin 07/23-07/26 (following AMA d/c from [facility]) On 08/14 Infectious disease felt it was reasonable to d/c IV vanco and IV aztreo nam and change to PO abx with prolonged suppressive course planned. Thus, both IV abx d/c this am. Changed to doxycycline 100mg BID + Levaquin 750mg PO daily -- first doses today, 08/15. He will be following up with Dr Montalvo, infectious disease in [place], on 08/28. Length of PO abx course is uncertain but likely weeks or months - to be determined by infectious disease at time of outpatient follow-up appointments and future imaging, etc. Recommend repeat MRI lumbar spine in 1 month to recheck his L1-L2 discitis. If he worsens at any point clinically then MRI would be indicated sooner. If any clinical worsening bone biopsy of L1-L2 would be needed (ideally OFF of any antibiotic to increase the yield of any culture). Fortunately his CRP on 08/14 was <0.5. Sed rate only 22 (peak 32). Mild leukocytosis off & on since 07/26 but NO documented fever since admission and he has had nice clinical improvement in his groin pain b/l (psoas abscesses), reduced size in the psoas abscesses on most recent imaging, and improvement in back along with overall mobility. He is eating well. (2) Psoas abscess: Plan: Reduced in size per current MRI obtained this admission. By report psoas abscess I/D at [facility] did not grow any specific pathogen. These were I/D by [facility] during previous admission there. Changing from IV to PO antibiotics today as per #1 above. Outpatient ID follow-up arranged. On exam his hip mobility is MUCH improved from the last time I had seen him (08/01/22) which is consistent with ongoing improvement in these abscesses. (3) Polysubstance use disorder: Plan: based on prior urine toxicology screen performed on 07/11/22 (4) HTN (hypertension): Plan: BPs continue to be high and labile. Lisinopril recently increased from 10mg to 20mg daily. Thus far BPs still high. Will increase metoprolol succinate to 75mg once daily. Monitor response. (5) Lumbar spinal stenosis: Plan: severe at L1-L2 during prior admission Dr Clarke had recommended surgical intervention at tertiary [facility] by report he was seen by orthopedics at [facility] and surgery was deferred he continues with pain in a radicular distribution likely from the L2 nerve root on right side recent right hip CT with mild OA but no signs of bursitis on that imaging he continues on tramadol 100mg prn and oxycodone prn he has a reported allergy to gabapentin he has had previous response to NSAIDs - these were stopped due to concern for gastritis, etc. he has no abdominal pain today - thus, will cautiously add back celebrex 100mg BID could consider lyrica but defer for now again lengthy discussion held with patient regarding his tramadol post-d/c I did reach out to [facility] and at this time he is not a candidate to follow in their clinic for ongoing tramadol use patient will need to establish care with a provider who is willing to prescribe the tramadol long-term for him OR consider methadone maintenance therapy OR similar therapy could consider referral to [facility] medicine after discharge we did coordinate a referral to ortho-spine via the [facility] system he will see ortho-spine at [facility] within the next 3 weeks will burn his most recent MRI lumbar spine imaging on CD - ROM for him to take to that appointment (6) Lower back pain: Plan: see #5 above (7) Tobacco dependence: Plan: cont nicoderm patch 21mg/day (8) Anemia: Plan: 2nd anemia of chronic disease with probable iron deficiency component (transferrin sat <10% on multiple occasions, most recent ferritin 29, etc) B12/folate this admission wnl cont Fe supplementation H/H remain stable Plan multiple visits to pt's bedside today to discuss his complex care coordination and discharge plan multiple discussions with case management multiple discussions with various providers (Dr Carrasco, [facility] pain management, etc) complex care coordination today - about 75 minutes of total care time Admission and Anticipated Discharge Date Admission Date: July 26, 2022 Subjective patient complains of right sided flank pain radiating to the right groin along with low back pain he is able to flex both hips comfortably, however, and is ambulating well we had lengthy discussions today regarding the following - 1. tramadol pain medication - reports he has been on such for many, many years (10+). Wishes to continue this. Was getting a 1-week supply of tramadol by Dr Carrasco's office prior to admission each time he received a refill. the tramadol is effective for his pain. 2. housing - we discussed the homeless alf that case management had found for him (they do have a bed for him) - "[employer] He states it is too far for him to stay there (too far from [place]). 3. follow-up appointments - told him he would have f/u with Ortho-spine in [place] at [facility], PCP, and ID Dr Montalvo. During this portion of our discussion he stated he would NOT see Dr Carrasco's physician sales and marketing assistant but he is willing to see Dr Carrasco. I informed him that I had spoken directly with Dr Carrasco and his office would not be providing him ongoing tramadol due to a previous tox screen showing multiple illicit substances. He asked about a medical planner in [place], or potentially seeing [facility] primary care? He voiced that he needed to continue on the tramadol for his back pain or that he would self-medicate to control the pain (use etoh, etc). Explained that I could provide him a 5-7 day supply of tramadol at time of discharge. he asked that we observe him while on oral antibiotics for several days to ensure no problems (worsening pain, worsening overall status, etc) Review of Systems Review of Systems: gen - no fever, eating well cv - no cp, no orthopnea pulm - no dyspnea neuro - ambulating musculo - back pain, right groin pain GI - moving bowels, no abd pain Physical Exam Physical Exam: gen - NAD, lying in bed comfortably with both legs flexed, awake, alert neck - no JVD mouth - MMM heart - RRR, s1 s2, no murmur lungs - CTA b/l abd - soft NT ND BS+ musculo - minimal tenderness right groin with flexion of right hip, no pain with flexion of left hip neuro - right hip flexion weakness, about 4+/5 strength - improved from prior exams; left hip flexion 5/5; distal strength of ankle/feet 5/5 b/l psych - alert, oriented x 3 Results & Data Results & Data ([facility]) Vital Signs (Past 12 Hours) Vital Signs Temp Pulse Resp BP Pulse Ox O2 Del Method 08/15/22 15:34 37.0 C 85 22 152/73 H 98 Room Air 08/15/22 07:45 37.0 C 88 18 148/69 H 98 Room Air Laboratory Results Laboratory Results - last 24 hr 08/15/22 08/15/22 15:21 15:21 WBC 13.74 H RBC 3.72 L Hgb 9.3 L Hct 29.6 L MCV 79.6 L MCH 25.0 MCHC 31.4 L RDW Std Deviation 42.8 RDW Coeff of Adele 14.7 H Plt Count 435 H MPV 8.7 L Sodium 135 L Potassium 4.2 Chloride 102 Carbon Dioxide 28 Anion Gap 5 BUN 21 Creatinine 0.84 Est Cr Clr Drug Dosing 86.7 Est GFR ( Amer) 108.0 Est GFR (Non-Af Amer) 93.2 BUN/Creatinine Ratio 25.0 H Glucose 106 H Calcium 9.1 PG Care Time/CCT Total # of Minutes Spent Total Time Spent with Patient: Total time spent is greater than 50% in coordination of care (as documented) at patient's floor/unit and/or counseling patient: Prolonged Care Time Prolonged Care Time: Yes Total Prolonged Care Time: 75 Coding Level of Care Code 49685 Subseq Hosp Care Lvl 3 (25 - SIGNIFICANT, SEPARATELY IDENTIFIABLE ) Diagnoses Discitis M46.46 Spinal region: lumbar Psoas abscess K68.12 Polysubstance use disorder F19.90 HTN (hypertension) I10 Lumbar spinal stenosis M48.061 Lower back pain M54.50; G89.29 Back pain laterality: midline Chronicity: chronic Sciatica presence: without sciatica Tobacco dependence F17.200 Anemia D64.9 Additional Codes Prolonged Care Time - Prolonged Care Time: Yes ([id number]) (1) Lower back pain Back pain laterality: midline Chronicity: chronic Sciatica presence: without sciatica Qualified Code(s): M54.50 - Low back pain, unspecified; G89.29 - Other chronic pain (2) Discitis Spinal region: lumbar Qualified Code(s): M46.46 - Discitis, unspecified, lumbar region
[2022-08-15] MEDS: CELECOXIB 100 MG CAP PO SCH (20:18)
[2022-08-16] MEDS: traMADol HCL 50 MG TABLET PO PRN ×2 (03:30→11:08)
[2022-08-16] MEDS: tiZANidine HCL 4 MG TABLET PO PRN (06:10)
[2022-08-16] MEDS: NICOTINE 21 MG/24 HR TDSY TD SCH (07:44)
[2022-08-16] MEDS: oxyCODONE HCL IR 5 MG TAB (IMMEDIATE RELEASE) PO PRN (07:44)
[2022-08-16] MEDS: CELECOXIB 100 MG CAP PO SCH ×2 (07:46→07:53)
[2022-08-16] MEDS: FERROUS SULFATE 325 MG TAB PO SCH (07:46)
[2022-08-16] MEDS: DOXYCYCLINE HYCLATE 100 MG CAP PO SCH (07:46)
[2022-08-16] MEDS: ADVANCED PROBIOTIC 1250 MG CAPSULE PO SCH (07:47)
[2022-08-16] MEDS: PANTOprazole 40 MG TAB PO SCH (07:47)
[2022-08-16] MEDS: lisinopril 20 MG TAB PO SCH ×2 (07:47→07:51)
[2022-08-16] MEDS: ENOXAPARIN INJ 40 MG/0.4 ML SYR SQ SCH (07:48)
[2022-08-16] MEDS ORDERED: METOPROLOL SUCC 25MG EXT REL TAB PO SCH (09:00)
[2022-08-16] MEDS: levoFLOXacin 750 MG TAB PO SCH (12:12)
--- NOTE | 2022-08-16 13:49 | Discharge Summary ---
Date of Service date of admission - July 26, 2022 date of discharge - August 16, 2022 Admission HPI Per Admitting Provider Tigre Camacho is a 62yo male with history of HTN, HFpEF, multiple spinal surgeries returning to [facility] with back pain. Patient has a complicated medical history. He was initially seen at [facility] ER on 05/31/22 with 2-3 days of lower back pain, progressive weakness and falls. During his ER workup he had a CT of the abdomen which revealed discitis, psoas abscess and epidural abscess. An MRI of the Lumbar spine confirmed these findings. Patient was administered Daptomycin 400mg IV and Cefepime 2000mg x 1 dose in the ER. Ortho-Spine was consulted and patient was transferred to [facility] for possible neurosurgical intervention. Daptomycin was discontinued due to elevation of CK. Patient was hospitalized at [facility] from 06/01/22 - 07/05/22. His initial CT revealed L1-L2 discitis/osteomyelitis with possible epidural abscess, bilateral psoas abscesses. He had IR drainage of the right and left psoas abscesses on 06/02/22 with drain exchange on 06/18/22. He was treated with Cefepime and Vancomycin. He was planned to be discharged with a PICC line in place to complete antibiotic course of Vancomycin and Aztreonam x 6 weeks, however, he left A on 07/04/22 without getting PICC line placed. Cultures reportedly negative from psoas abscesses. He returned to [facility] on 07/11/22 with confusion after being found by his niece in his hotel, confused and disheveled. . He was admitted under 302 petition. Patient encephalopathic during his hospitalization secondary to electrolyte disturbances, infection and polysubstance use. He had an MRI of the lumbar spine on 07/12/22 which revealed significant decrease in size of the bilateral psoas intramuscular abscesses when compared to MRI study from 05/31/22. Still with L1-L2 discitis and osteomyelitis, increased in size when compare do study from [place] (1.9 cm vs 2.2 x 1.6cm abscesses - enlarged while off antibiotics). He was ultimately transferred again to [facility] on 07/13/22 due to concern for worsening infection and possible need for neurosurgical intervention. He had an MRI of the lumbar spine with and without contrast at [place] on 07/14/22 which revealed improved focal right and left psoas abscesses, right > left. Persistent anterior and right/left lateral paraspinal phlegmonous changes extending from L1-L2 disc space and over the L2 vertebral body segment.. Extruded disc at the left L2 lateral recess, please correlate left L2/L3 radicular symptoms. Extensive postoperative changes limiting objective evaluation of the capacity of the spinal canal. He was evaluated by ID while at [place] - was recommended to continue Vancomycin 1gm IV q 12h and Aztreonam 1g IV q 8 hours x 4 weeks and to followup in ID clinic in 3 weeks He was seen by Neurosurgery at [place] and no intervention recommended. He was also seen by Interventional Radiology - stated that abscesses were not large enough to place a drain an aspiration was not recommended. His pain was managed with Tramadol, Cyclobenzaprine, Tylenol, Lidocaine patch and Duloxetine. Patient ultimately left AMA on 07/23/22 - stated he needed to prevent reposession of his property. He was discharged home with Levaquin and Doxycycline to complete a 4 week course. Patient returns to [facility] ER today with complaint of worsening back pain and leg weakness. He reports he has been taking his Doxycycline and Levaquin but "may have missed some doses". He has been living in a hotel since returning from [facility]. He states that he has been having worsening back pain over the last two days. He reports that his pain has been so bad that he has "blacked out" several times. He also reports self medicating with a "white street powder" that he snorted. Was unwilling to disclose exactly what drug it was, stated that it helped with the pain, possibly heroine. He denies fever, chills, malaise, nausea, vomiting, diarrhea or constipation. Denies bowel or bladder complaints. Patient endorses a complicated living situation. 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 She in the spring. Patient reports that he was getting her home cleaned out when he initially developed the back pain and had to be hospitalized. He states that when he got out of the hospital his siblings had packed up his things, kicked him out of his mother's home and were in the process of selling the house. He reports he has been living in hotels and motels ever since. He also reports that he is working on obtaining more permanent housing and is on several waiting lists for apartments. In the ER patient is afebrile, hypertensive, otherwise HD stable. He is non- toxic in appearance. MRI of the lumbar spine obtained, results below. ER Course: Cefepime, Daptomycin, Morphine Principal Diagnosis 1. L1-L2 discitis/osteomyelitis 2. bilateral psoas abscesses 3. Severe L1-L2 spinal stenosis with resulting L2 radiculopathy on right, with resulting right hip flexion weakness 4. Chronic narcotic dependence 5. Tobacco dependence 6. Polysubstance abuse 7. HTN 8. Homelessness Discharge Exam gen - NAD, lying in bed comfortably with both legs flexed, awake, alert neck - no JVD mouth - MMM heart - RRR, s1 s2, no murmur lungs - CTA b/l abd - soft NT ND BS+ musculo - minimal tenderness right groin with flexion of right hip, no pain with flexion of left hip neuro - right hip flexion weakness, about 4+/5 strength - improved from prior exams; left hip flexion 5/5; distal strength of ankle/feet 5/5 b/l psych - alert, oriented x 3, agitated Discharge Data Allergies Allergy/AdvReac Type Severity Reaction Status Date / Time gabapentin Allergy Severe SHORT OF Verified 08/21/22 15:27 BREATH cat dander Allergy Intermediate itchy Verified 08/21/22 15:27 eyes, sneezing codeine AdvReac Intermediate GI upset Verified 08/21/22 15:27 Consultations Infectious Diseases Orthopedic Surgery PT, OT Case management Ordered Studies Lumbar Spine MRI 07/26/22 15:29 MR lumbar spine wo/w con CLINICAL HISTORY: psoas absess and discitis history TECHNIQUE: 3 plane localizer images, sagittal T2, sagittal T1, sagittal STIR, axial T1, axial T2 along with postcontrast axial T1 and sagittal T1 fat-satu rated sequences were obtained of the lumbar spine, before and after intravenous administration of 12 mL of MultiHance. Comparison: Comparison is made to MRI lumbar spine 07/12/2022 FINDINGS: Exam is limited by patient motion and streak artifact from posterior fixation hardware as well as hardware from left sacroiliac fusion. Again noted is fluid signal in the L1 vertebral body and L1-L2 disc space. There is associated decreased T1 signal. Within the limits of susceptibility artifact, severe canal stenosis is again noted at L1-L2. The previously noted bilateral psoas lesions are again decreased in size, previously measured 22 mm on the right and 11 mm in the left, now measure 18 mm in the right and 7 mm on the left. IMPRESSION: 1. 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 Severe canal stenosis is again noted at L1-L2. 2. Interval continued decrease in size in bilateral psoas abscesses. ACT 112: Negative or not required by law. Electronically signed by: Riky Roman M.D. 07/26/2022 7:15 PM Hip X-Ray 08/02/22 15:17 XR hip RT min 2V HISTORY: 62 years-old Male limited mobility and pain chronic right hip pain COMPARISON: CT abdomen and pelvis 05/31/2022 TECHNIQUE: 2 views of the right hip FINDINGS: Partially imaged fusion hardware with discectomy changes of the lumbar spine. Moderate osteoarthritis of the right hip. Subcortical cystic changes of the acetabulum. No acute fracture, dislocation or avascular necrosis. Status post removal of the right SI joint bolts. IMPRESSION: No acute fracture or dislocation. ACT 112: Negative or not required by law. The above report was generated using voice recognition software. It may contain grammatical, syntax or spelling errors. Electronically signed by: Eliazar Gonzalez M.D. 08/02/2022 4:[address] 08/12/22 13:39 CT hip RT wo con CLINICAL HISTORY: Right hip pain. COMPARISON STUDY: CT of the abdomen and pelvis May 31, 2022. Right hip radiograph August 02, 2022. TECHNIQUE: Axial images of the right hip were obtained without intravenous contrast. Sagittal and coronal reconstructions were viewed. Automated exposure control was utilized for the study. A dose lowering technique was utilized adhering to the principles of ALARA. FINDINGS: Alignment of the right hip is anatomic. There is no acute fracture. There is no suspicious osseous lesion. There is mild right hip joint space narrowing. There is moderate osteophytosis with subchondral cystic change within the superior acetabulum. There is no evidence for avascular necrosis. Adjacent soft tissues are unremarkable by CT. IMPRESSION: 1. No acute fracture within the right hip. 2. Mild joint space narrowing and moderate osteophytosis of the right hip with subchondral cystic change within the acetabulum consistent with osteoarthritis. ACT 112: Negative or not required by law. Electronically signed by: Christophe Cormier M.D. 08/12/2022 3:51 PM Hospital Course (1) Discitis: Initial diagnosis in May 2022. See HPI of this document for detailed information for history since his diagnosis. L1-L2. Prior antibiotic use per the medical record: Cefepime 05/31-06/06, 07/26 Daptomycin 05/31-06/01, 07/26 Vancomycin ~06/02-07/02, 07/14-07/23, 07/26-08/15 AM Aztreonam ?-07/02, 07/14-07/23, 07/26-08/15 AM Doxycycline Oral - 07/23-07/26 (following AMA d/c from [facility]) Levofloxacin Oral - 07/23-07/26 (following AMA d/c from [facility]) During this prolonged hospitalization he was treated with IV aztreonam and IV vancomycin from 07/26/22 to 08/15/22 as noted above. On 08/14/22 Infectious disease felt it was reasonable to d/c IV vanco and IV aztreonam and change to PO abx with prolonged suppressive course planned. Thus, both IV abx were discontinued on 08/15/22. Changed to doxycycline 100mg BID + Levaquin 750mg PO daily -- first doses on 08/15/22. He will be following up with Dr Malina Montalvo, infectious disease in [place], on 08/28/22. Length of PO abx course is uncertain but likely weeks or months - to be determined by infectious disease at time of outpatient follow-up appointments and future imaging, etc. Recommend repeat MRI lumbar spine in 1 month post-discahrge to recheck his L1-L2 discitis. If he worsens at any point clinically then MRI would be indicated sooner. If he has any clinical worsening bone biopsy of L1-L2 would be needed (ideally OFF of any antibiotic to increase the yield of any culture). Fortunately his CRP on 08/14/22 was <0.5 (peak 3.4 on 07/13/22). Sed rate only 22 on 08/14/22 (peak 32 on 07/26/22). Mild leukocytosis off & on since 07/26/22 but NO documented fever since admission and he has had nice clinical improvement in his groin pain b/l (psoas abscesses), reduced size in the psoas abscesses on most recent imaging, and improvement in back pain along with overall mobility of his right hip. He was eating and drinking well during this prolonged visit. At discharge he will do the following - * take levofloxacin 750mg once daily * take doxycycline 100mg twice daily * f/u with infectious diseases in [place] on 08/28/22 (Malina Montalvo MD) * f/u with orthopedics-spine at [facility] on 09/10/22 (Brendan Saldivar MD) - see #3 below for more information (2) Psoas abscess: Bilateral. Reduced in size per current MRI obtained this admission. By report psoas abscesses underwent I & D at [facility] but did not grow any specific pathogen on cultures. These were I/D by [facility] during previous admission there. Received prolonged IV antibiotic courses as per #1 above. Now transitioning to PO antibiotics as above. Outpatient ID follow-up arranged. On exam his b/l hip mobility is MUCH improved from admission, particularly on right, which is consistent with ongoing improvement in these abscesses. (3) Lumbar spinal stenosis: Severe at L1-L2. during prior admission Dr Jaspal Clarke, [facility] Orthopedics, had recommended surgical intervention at tertiary care center. by report he was seen by orthopedics at [facility] during a prior stay and surgery was deferred at that time. he continues with pain in a radicular distribution likely from the L2 nerve root on right side. recent right hip CT with mild OA but no signs of bursitis on that imaging. he continues on tramadol 100mg q6h prn. he has a reported allergy to gabapentin thus cannot use this for radicular pain. Could consider lyrica but defer to his outpatient providers. he has had previous response to NSAIDs - thus, will d/c on celebrex 100mg BID. Multiple lengthy discussions were held with the patient regarding his tramadol post-d/c. I did reach out to [facility] and at this time he is not a candidate to follow in their clinic for ongoing tramadol use due to known polysubstance abuse. (tox screen POSITIVE on 07/11/22 for cocaine, MDMA, methamphetamines, and benzodiazepines). Patient will need to establish care with a provider who is willing to prescribe the tramadol long-term for him OR consider methadone maintenance therapy OR similar therapy. At discharge I gave him a 5-day supply of tramadol only. Given the severity of his L1-L2 stenosis a referral to ortho-spine via the [facility] system has been established. His most recent MRI lumbar spine imaging was placed on CD-ROM for him to take to that appointment. (4) Lower back pain: as above (5) Polysubstance use disorder: Based on prior urine toxicology screen performed on 07/11/22 as noted above. Patient is unwilling to acknowledge his polysubstance abuse nor seek any treatment for such. In the context of multiple discussions regarding post-discharge tramadol use he stated that if he didn't have access to such he would self-medicate with alcohol or other agents for control of his back pain. I counseled him on the dangers of polysubstance abuse including severe morbidity and even . (6) HTN (hypertension): Cont Lisinopril 20mg daily. Cont metoprolol tartrate 50mg BID. f/u PCP for ongoing Rx. (7) Tobacco dependence: cont nicoderm patch 21mg/day upon discharge. (8) Anemia: 2nd anemia of chronic disease with probable iron deficiency component as well. (transferrin sat <10% on multiple occasions, most recent ferritin 29, etc) B12/folate this admission wnl. Received iron supplementation while here. Hemoglobin was about 9 during his entire stay without evidence of GI bleeding, etc. (9) Homelessness: Social work staff worked diligently on securing him housing post-discharge. Ultimately a home called "[facility]" accepted Mr Camacho. However, Mr Camacho was not interested in such, stating that the facility was too far from [place] [address] and that he was not going to drive back and forth from that facility to [place] [address] for appts, etc. At discharge Mr Camacho plans to stay in a local hotel. Social work provided him a list of alternative resources as well. Total Time Total Time Spent Total Time Spent (In Minutes): 60 Discharge Plan Discharge Items Patient Disposition: Home - Self-Care Reason For Visit: BACK PAIN Discharge Diagnosis: 1. L1-L2 discitis (infection of lumbar spine) 2. bilateral psoas abscesses - improving 3. lumbar spinal stenosis at L1-L2 4. right sided hip and groin pain - likely due to #1 - follow-up with orthopedics-spine strongly recommended 5. high blood pressure Activity: As commented below Activity Comment: light activities only Lifting: No more than 10 pounds Driving/Machine Use: No driving if using tramadol pain medication Non-emergency contact: Primary Care Provider and Specialist Call non-emergency contact if: you have any medication questions, your symptoms worsen and you have a fever Follow-up/Referrals: Mateo Carrasco MD [Primary Care Provider] - 08/21/22 3:20 pm Malina Montalvo DO [Physician] - 08/28/22 10:00 am (Dr. Montalvo - [place] office - at [facility] - Across the street from the hospital -- [address] [place] [address] [address] [facility] [place], [facility] Please do not miss this appointment) Jeremy Saldivar MD [Outside Practitioners] - 09/10/22 11:00 am ( (ortho spine doctor) [address] [place] [address],Ar. Please arrive for appointment at 10:45 Be sure to bring the CD of your spine with you (given to you at hospital discharge) Please bring photo ID and insurance information ) Diet: Regular Addtl Attending Provider Instructions: Mr Camacho, You were hospitalized at [facility] due to back pain and weakness. Your back pain is due to discitis (bone infection) of L1-L2 in your lower spine (the lumbar spine region). The L1-L2 region has significant spinal stenosis which also contributes to your pain in your right hip/right groin area. In addition to discitis you have been treated for several months for bilateral psoas abscesses. These are pockets of infection in both groin regions. These have improved as your imaging shows they are getting smaller. You were treated with a long course of IV antibiotics at [facility]. Your weakness improved and your walking improved. Infectious diseases saw you in consultation and recommended a combination of doxycycline and levofloxacin antibiotics by mouth upon discharge. Recommendations - 1. Antibiotics for the discitis and the psoas abscesses - * doxycycline 100mg twice daily every day * this antibiotic can cause reflux symptoms thus we are prescribing an antacid to you to protect your stomach; omeprazole 20mg once daily has been prescribed * this antibiotic can also cause a rash if you have too much sun exposure; be sure to use sunscreen and cover up if you are outside for long periods of time * start this TONIGHT * levofloxacin 750mg once daily every day * start this TOMORROW 2. All antibiotics can cause diarrhea. Thus, we are prescribing probiotics to you. These can help prevent some diarrhea from your antibiotics. Take the probiotics daily. 3. For pain - * tramadol 50mg, 1-2 tabs every 6 hours as needed for pain * a 5-day supply has been prescribed for you * no driving if using tramadol * no alcohol use while using tramadol * celebrex 100mg twice daily - this is an anti-inflammatory medication that may help your back pain as well 4. To help quit smoking you may use nicoderm patches 21mg/day. If you begin smoking again please stop the nicoderm. 5. For high blood pressure - * take lisinopril 20mg once daily * take metoprolol 50mg twice daily 6. When you see the undercar specialist at [facility] be sure to bring the CD-ROM with you to that appointment. This is to evaluate your L1-L2 spinal stenosis. 7. Dr Montalvo - infectious diseases - will follow your treatment for the dis citis/psoas abscesses. See appointment information. Follow-up appointments - see separate section Return to [facility] if - * you have fevers over 100 degrees * you have difficulty with walking, have severe numbness/tingling of your legs, have difficult moving your bowels or passing your urine, or have any concerns about your back * you develop severe diarrhea * any other concerns Please continue to feel better! Pending Studies at Discharge: No Stand-Alone Forms: My [facility], Smoking Cessation Medications and DC Order Prescriptions: New lisinopril 20 mg Tablet 20 mg PO QAM Qty: 30 0RF Rx Instructions: for high blood pressure nicotine [Nicoderm CQ] 21 mg/24 hr Patch 24 Hour 21 mg transdermal Q24H Qty: 30 0RF celecoxib [Celebrex] 100 mg Capsule 100 mg PO BID Qty: 60 0RF Hold Instructions: Home Medication placed on hold at Doctor's office metoprolol tartrate 50 mg tablet 50 mg PO BID Qty: 60 0RF Rx Instructions: for high blood pressure Saccharomyces boulardii 250 mg capsule 250 mg PO DAILY Qty: 30 0RF omeprazole 20 mg capsule,delayed release(DR/EC) 20 mg PO QAM Qty: 30 0RF Continued trazodone 50 mg tablet 50 mg PO HS Qty: 30 3RF doxycycline hyclate 100 mg capsule 100 mg PO BID Qty: 60 0RF levofloxacin 750 mg tablet 750 mg PO DAILY Qty: 30 0RF Changed tramadol 50 mg tablet 50 - 100 mg PO Q6H PRN (Reason: pain, moderate) Qty: 40 0RF Discontinued cyclobenzaprine 10 mg tablet 10 mg PO BID PRN (Reason: muscle spasm) Qty: 60 3RF No Action ketorolac 10 mg tablet 10 mg PO Q12 PRN (Reason: pain) Qty: 30 0RF Rx Instructions: not to take with celebrex Discharge Orders: Discharge Order (Routine); Ordered 08/16/22 Ordered By: Allan Gross/Other Patient Handouts: Planning to Quit Smoking Admission Data Admit Date/Time: 07/26/22 21:14 Attending Provider: Allan Vela Admit Provider: Vivienne Anne Primary Care Provider: Mateo Carrasco Other Providers: Miguel Dean ; Ola,[facility] [place] ; [facility] ; Naveed Clarke Other Interventions: Discharge Summary Assessment (RN) Last Done: 08/16/22 13:37 Coding Level of Care Code D/C DAY MANAGEMENT >30 MINS Diagnoses Discitis M46.46 Spinal region: lumbar Psoas abscess K68.12 Lumbar spinal stenosis M48.061 Lower back pain M54.50; G89.29 Back pain laterality: midline Chronicity: chronic Sciatica presence: without sciatica Polysubstance use disorder F19.90 HTN (hypertension) I10 Tobacco dependence F17.200 Anemia D64.9 Homelessness Z59.00
== END 2022-08-16 15:59 | disposition home or self-care (01) ==
LOC: ED 12:59 → SUATTDRO 21:14 → INTOOBSV 21:14 → 3W 21:14
DX: Z88.5 Allergy status to narcotic agent; M46.46 Discitis, unspecified, lumbar region; Z88.8 Allergy status to other drugs, medicaments and biological substances; Z79.899 Other long term (current) drug therapy; M86.68 Other chronic osteomyelitis, other site; I10 Essential (primary) hypertension; M48.061 Spinal stenosis, lumbar region without neurogenic claudication; K68.12 Psoas muscle abscess; F17.210 Nicotine dependence, cigarettes, uncomplicated; Z59.819 Housing instability, housed unspecified

== ENCOUNTER 2023-01-26 18:46 | Observation (INO) ==
[2023-01-26] MEDS ORDERED: SODIUM CHLORIDE 0.9% 1000ML 1,000 ML IV ONE (19:16)
[2023-01-26] MEDS ORDERED: LORazepam 2 MG/1 ML VIAL IV STA (19:18)
--- NOTE | 2023-01-26 19:35 | XRay Report ---
XR chest 1V portable HISTORY: 63 years-old Male weakness acute weakness COMPARISON: 07/10/2022 TECHNIQUE: AP view of the chest FINDINGS: Cardiac silhouette is mildly enlarged. No pneumothorax, pleural effusion, airspace consolidation or p ulmonary edema. Chronic appearing left-sided rib fractures with chronic right clavicular fracture. IMPRESSION: No acute process. ACT 112: Negative or not required by law. The above report was generated using voice recognition software. It may contain grammatical, syntax o r spelling errors. Electronically signed by: Eliazar Gonzalez M.D. 01/26/2023 7:34 PM
[2023-01-26] MEDS ORDERED: LORazepam 2 MG/1 ML VIAL IM STA (19:47)
--- NOTE | 2023-01-26 20:02 | Emergency Department Note ---
Impression & Plan Closed T3 fracture, Homeless, Closed fracture of left zygomatic arch, Elevated CPK, Encephalopathy ED Provider Note NAME: OPAL ZAMBRANO AGE: 63 SEX: M ARRIVES VIA: Walk-In INFORMANT: Patient ED PROVIDER(S): Mejia Leo MD CHIEF COMPLAINT: Trauma, Confusion PLAN: Disposition: Admit MEDICAL DECISION MAKING: The patient is a 63-year-old homeless gentleman with a past medical history of hypertension, CHF with preserved EF, neurogenic claudication secondary to lumbar spinal stenosis, cephalopathy, history of discitis/osteomyelitis of the lumbar spine August 2022, bilateral psoas abscesses, chronic narcotic dependence, polysubstance abuse, tobacco abuse who presents to the emergency department via walk-in where the patient has a visible facial trauma unclear details of when this occurred. The patient is a poor historian and will not provide any details of why he came to emergency department and what his new complaints are. He reports "somebody dropped him off". On arrival the patient is in NAD, afebrile with stable vital signs. He exhibits poor attention and labile/irritable affect. He is redirectable. Bilateral periorbital ecchymosis and subconjunctival hemorrhage of the right eye. He has scattered areas of ecchymosis of his left shoulder upper chest without bony crepitus or tenderness to palpation. EKG without overt acute ischemia. CXR negative for acute cardiopulmonary process with chronic appearing right clavicular and left-sided rib fractures noted. WBC 12.8K nonspecific. There is no left shift. H/H similar to prior. Platelets 405K similar to prior. Chemistry without metabolic acidosis. Potassium 3.2 and phosphorus 2.0 and electrolytes otherwise without significant abnormality. AST mildly elevated 40, nonspecific and LFTs otherwise unremarkable. CPK is mildly above normal at 341, nonspecific. High-sensitivity troponin 34.7, nonspecific and similar to prior values. TSH is low at 0.17 with free T4 within normal limits. UA without evidence of infection. Drug screen was positive for cocaine. CT of the head, CTL spine, chest, abdomen pelvis were performed. Traumatic injuries are limited to left zygomatic arch fracture and T3 superior endplate fracture without evidence of retropulsion and intact posterior elements though MRI is recommended given incomplete evaluation. Numerous old/healed fractures are seen including left sided non-united rib fractures. Given the patient's encephalopathy which is likely multifactorial in the setting of his evidence of recurrent falls T3 superior endplate fracture and left zygomatic arch fracture the patient was referred to hospital service for consideration for admission. Case was discussed with GABINO Brown hospitalist, who will evaluate the patient for admission. Triage Nursing notes reviewed and agree them. Prior/outside medical records reviewed Vital Signs: reviewed Differential diagnosis: Fracture, dislocation, contusion, intra-abdominal, pneumothorax, intrathoracic, intracranial, neurologic, compartment syndrome, rhabdomyolysis, as well as other pathologies. ER treatment provided: See below. Diagnostics interpreted by me: ECG: Normal sinus rhythm with sinus arrhythmia, 96 bpm, no ectopy, right bundle branch block, no overt ST elevation, anterior T wave abnormality, similar to prior. QTc 530, QRS 126. Cardiac Monitoring: An order for continuous cardiac monitoring was placed and demonstrated Normal sinus rhythm with sinus arrhythmia, 96 bpm, no ectopy. Laboratory studies: See below Imaging studies: See below Consultation(s): GABINO Brown hospitalist. HPI: The patient is a 63-year-old homeless gentleman with a past medical history of hypertension, CHF with preserved EF, neurogenic claudication secondary to lumbar spinal stenosis, cephalopathy, history of discitis/osteomyelitis of the lumbar spine August 2022, bilateral psoas abscesses, chronic narcotic dependence, polysubstance abuse, tobacco abuse who presents to the emergency department via walk-in where the patient has a visible facial trauma unclear details of when this occurred. The patient is a poor historian and will not provide any details of why he came to emergency department and what his new complaints are. He reports "somebody dropped him off". ROS: See above HPI for pertinent positives & negatives. A total of 10 systems reviewed and were otherwise negative. VITALS:See Below PHYSICAL EXAMINATION: GENERAL: Awake, alert, unkempt-appearing, in no distress HENT: Normocephalic, bilateral periorbital ecchymosis and subconjunctival hemorrhage of the right eye. Oropharynx unremarkable. EYES: Subconjunctival hemorrhage of the right eye. Pupils are equal reactive bilaterally. There is no proptosis. EOMI. NECK: Supple. No nuchal rigidity. FROM. No JVD. RESPIRATORY: Clear to auscultation. CARDIAC: Regular rate, normal rhythm. Extremities warm and well perfused. Pulses equal. ABDOMEN: Soft, non-distended. No tenderness to palpation. No rebound or guarding. No masses. RECTAL: Deferred. MUSCULOSKELETAL: Chest examination reveals no tenderness. Note is made of mobile left lower chest wall rib segments, ecchymosis and are none tender to palpation. No midline CTL spine tenderness palpation or step-offs. No CVA tenderness to palpation. Scattered areas of ecchymosis of his left shoulder upper chest without bony crepitus or tenderness to palpation. Pelvis is stable with hips with full range of motion bilaterally. LOWER EXTREMITIES: Calves are equal size bilaterally and non-tender. No edema. No discoloration. NEURO: Poor attention, labile/irritable affect, no focal sensory or motor deficits noted. Moves all extremities equally. 5/5 strength and SILT x 4 extremities. SKIN: No rash or jaundice noted. Mejia Leo MD Past Med/Surg History Medical History Blood loss anemia Diastolic dysfunction Discitis HTN (hypertension) Hyperglycemia Hypertension Lower back pain Lumbar spinal stenosis LVH (left ventricular hypertrophy) LVH (left ventricular hypertrophy) severe Medical non-compliance Obesity Osteoarthritis Polysubstance use disorder Psoas abscess Psoas abscess Rib fracture left sided, remotely, healed without intervention- does have residual pain over area Rib pain on left side Tobacco dependence Surgical History History of arthroscopy of shoulder left History of back surgery x5 total History of knee replacement right S/P TKR (total knee replacement) Family History Denies family history of Ovarian cancer Prostate cancer Myocardial infarction Breast cancer Colorectal cancer Social History Smoking Status: Never smoker Tobacco Type: Cigarettes Second Hand Exposure: Yes; Hx Alcohol Use: No Hx Substance Use: Yes Prescribed Medications: Marijuana Last Used Substance: Days (ago) Last Used Substance Other:: "snorted some white powder a friend gave me" Preferred Language: [place] Communication Ability: Effective Retail Seasonal Specialist Required: No Beliefs That Will Affect Care: None marital status: Single Current Living Situation: Alone Current Living Situation Comment: pt states that he moves throughout multiple motel locations current occupational status: unemployed Feels Safe at Home: Yes Dental Care, Regularly: No Physical Activity Frequency: Does not Exercise Seatbelt Use: always Assistive Devices: Walker Allergies Allergies Allergy/AdvReac Type Severity Reaction Status Date / Time gabapentin Allergy Severe SHORT OF Verified 01/26/23 19:56 BREATH cat dander Allergy Intermediate itchy Verified 01/26/23 19:56 eyes, sneezing codeine AdvReac Intermediate GI upset Verified 01/26/23 19:56 Home Meds Home Medications Medication Instructions Recorded Confirmed duloxetine 60 mg capsule,delayed 60 mg PO DAILY 01/26/23 01/26/23 release ketorolac 10 mg tablet 10 mg PO BID PRN pain,moderate 01/26/23 01/26/23 Previous Rx's Medication Instructions Recorded celecoxib 100 mg capsule (Celebrex) 100 mg PO BID #60 caps 08/16/22 tramadol 50 mg tablet 50 - 100 mg PO Q6H PRN pain, 08/16/22 moderate #40 tabs cyclobenzaprine 10 mg tablet 10 mg PO TID PRN muscle spasm #30 11/23/22 tabs doxycycline hyclate 100 mg capsule 100 mg PO BID #60 caps 01/01/23 Results & Data (ED) Vital Signs Vital Signs - 24 hr 01/26/23 18:53 01/26/23 19:37 01/26/23 20:40 Temperature 36.9 C Temperature Source Temporal Artery Scan Pulse Rate 110 H 94 H 88 Pulse Rate [Apical] Respiratory Rate 18 20 Respiratory Effort / Characteristics Non-Labored Spontaneous Respiratory Depth Normal Respiratory Pattern Regular Blood Pressure 157/88 H Blood Pressure [Right Arm] Blood Pressure Mean 111 Blood Pressure Mean [Right Arm] Blood Pressure Position Sitting Blood Pressure Position [Right Arm] Pulse Oximetry 99 96 Oxygen Delivery Method Room Air Room Air Sepsis Recent Fever Within 48 Hours No Sepsis New/Unexplained Change in Mental Status N/A Sepsis Action Taken by Nursing No Action Required 01/26/23 21:39 01/26/23 21:14 01/26/23 23:00 Temperature Temperature Source Pulse Rate 88 Pulse Rate [Apical] 84 90 Respiratory Rate 18 18 24 Respiratory Effort / Characteristics Respiratory Depth Respiratory Pattern Blood Pressure Blood Pressure [Right Arm] 184/131 H 193/104 H Blood Pressure Mean Blood Pressure Mean [Right Arm] 148 133 Blood Pressure Position Blood Pressure Position [Right Arm] Lying Lying Pulse Oximetry 97 100 97 Oxygen Delivery Method Room Air Room Air Sepsis Recent Fever Within 48 Hours Sepsis New/Unexplained Change in Mental Status Sepsis Action Taken by Nursing 01/26/23 23:26 01/26/23 23:30 Temperature Temperature Source Pulse Rate 86 88 Pulse Rate [Apical] Respiratory Rate 20 24 Respiratory Effort / Characteristics Respiratory Depth Respiratory Pattern Blood Pressure 165/99 H Blood Pressure [Right Arm] Blood Pressure Mean 121 Blood Pressure Mean [Right Arm] Blood Pressure Position Blood Pressure Position [Right Arm] Pulse Oximetry 95 98 Oxygen Delivery Method Sepsis Recent Fever Within 48 Hours Sepsis New/Unexplained Change in Mental Status Sepsis Action Taken by Nursing Laboratory Data Attestation: I reviewed the patient's lab results. 01/26/23 20:42 01/26/23 20:42 Lab Results 01/26/23 01/26/23 01/26/23 Range/Units 20:42 20:42 20:42 WBC (4.8-10.8) K/ul RBC (4.70-6.10) M/uL Hgb (14.0-18.0) g/dl POC Hgb (14.0-18.0) g/dl Hct (42.0-52.0) % POC Hct (42-52) % MCV (80.0-100.0) fL MCH (25.0-34.0) pg MCHC (32.0-36.0) g/dL RDW Std Deviation (36.4-46.3) fL RDW Coeff of Adele (11.5-14.5) % Plt Count (130-400) K/uL MPV (9.4-12.4) fL Immature Gran % (Auto) % Neut % (Auto) % Lymph % (Auto) % Robeson % (Auto) % Eos % (Auto) % Baso % (Auto) % Neut # (Auto) (1.40-6.50) K/uL Lymph # (Auto) (1.2-3.4) K/uL Robeson # (Auto) (0.11-0.59) K/uL Eos # (Auto) (0-0.50) K/uL Baso # (Auto) (0-0.2) K/uL Immature Gran # (Auto) (0.01-0.20) K/uL PT 11.8 (9.0-12.0) Seconds INR 1.1 (0.9-1.1) POC Sodium (135-144) mmol/L Sodium 137 (136-145) mmol/L POC Potassium (3.3-5.0) mmol/L Potassium 3.2 L (3.5-5.1) mmol/L POC Chloride (101-112) mmol/L Chloride 106 (98-107) mmol/L Carbon Dioxide 26 (21-32) mmol/L POC Total CO2 (24-31) mmol/L Anion Gap 5 (3-11) POC Anion Gap (16-25) mmol/L POC BUN (7-18) mg/dl BUN 10 (6-23) mg/dl Creatinine 0.88 (0.6-1.4) mg/dl POC Creatinine (0.6-1.3) mg/dl Est Cr Clr Drug Dosing Not Reportable Est GFR ( Amer) 105.2 ml/min Est GFR (Non-Af Amer) 90.8 ml/min BUN/Creatinine Ratio 11.4 (10-20) Glucose 114 H (70-99(Fasting)) mg/dl POC Glucose (other) (70-99) mg/dl Calcium 9.1 (8.6-10.3) mg/dl POC Ioniz Calcium Jeremie (1.12-1.32) mmol/l Phosphorus 2.0 L (2.5-4.9) mg/dl Magnesium 2.0 (1.7-2.4) mg/dl Total Bilirubin 0.4 (0.2-1.0) mg/dl AST 40 H (13-39) U/L ALT 22 (7-52) U/L Alkaline Phosphatase 95 (34-104) U/L Total Creatine Kinase 341 H (30-223) U/L Troponin I High Sens 34.7 H (0-20) pg/ml Total Protein 6.5 (6.0-8.3) gm/dl Albumin 3.7 (3.4-5.0) gm/dl Globulin 2.8 (2.5-4.0) gm/dl Albumin/Globulin Ratio 1.3 (0.9-2) TSH (0.300-4.500) uIu/ml Free T4 (0.61-1.60) ng/dl Urine Color Urine Appearance (Clear) Urine pH (4.5-7.5) Ur Specific [place] (1.000-1.030) Urine Protein (Negative) Urine Glucose (UA) (Negative) Urine Ketones (Negative) Urine Blood (Negative) Urine Nitrite (Negative) Urine Bilirubin (Negative) Urine Urobilinogen (Negative) Ur Leukocyte Esterase (Negative) Urine Opiates Screen (Neg) Ur Methadone, Qual (Neg) Urine Barbiturates (Neg) Ur Phencyclidine (PCP) (Neg) U Amphetamin/Meth Scrn (Neg) MDMA (Ecstasy) Screen (Neg) U Benzodiazepines Scrn (Neg) Ur Cocaine Metabolite (Neg) U Marijuana (THC) Screen (Neg) Ethyl Alcohol mg/dL < 10.0 (<10.0) mg/dl SARS-CoV-2, RNA, NAAT (NEGATIVE) 01/26/23 01/26/23 01/26/23 Range/Units 20:42 20:42 20:49 WBC 12.89 H (4.8-10.8) K/ul RBC 3.61 L (4.70-6.10) M/uL Hgb 9.6 L (14.0-18.0) g/dl POC Hgb 10.5 L (14.0-18.0) g/dl Hct 29.4 L (42.0-52.0) % POC Hct 31 L (42-52) % MCV 81.4 (80.0-100.0) fL MCH 26.6 (25.0-34.0) pg MCHC 32.7 (32.0-36.0) g/dL RDW Std Deviation 43.6 (36.4-46.3) fL RDW Coeff of Adele 14.8 H (11.5-14.5) % Plt Count 405 H (130-400) K/uL MPV 9.0 L (9.4-12.4) fL Immature Gran % (Auto) 0.5 % Neut % (Auto) 80.0 % Lymph % (Auto) 11.4 % Robeson % (Auto) 6.7 % Eos % (Auto) 1.2 % Baso % (Auto) 0.2 % Neut # (Auto) 10.32 H (1.40-6.50) K/uL Lymph # (Auto) 1.47 (1.2-3.4) K/uL Robeson # (Auto) 0.86 H (0.11-0.59) K/uL Eos # (Auto) 0.15 (0-0.50) K/uL Baso # (Auto) 0.03 (0-0.2) K/uL Immature Gran # (Auto) 0.06 (0.01-0.20) K/uL PT (9.0-12.0) Seconds INR (0.9-1.1) POC Sodium 136 (135-144) mmol/L Sodium (136-145) mmol/L POC Potassium 3.1 L (3.3-5.0) mmol/L Potassium (3.5-5.1) mmol/L POC Chloride 101 (101-112) mmol/L Chloride (98-107) mmol/L Carbon Dioxide (21-32) mmol/L POC Total CO2 25 (24-31) mmol/L Anion Gap (3-11) POC Anion Gap 14.0 L (16-25) mmol/L POC BUN 9 (7-18) mg/dl BUN (6-23) mg/dl Creatinine (0.6-1.4) mg/dl POC Creatinine 0.9 (0.6-1.3) mg/dl Est Cr Clr Drug Dosing Est GFR ( Amer) ml/min Est GFR (Non-Af Amer) ml/min BUN/Creatinine Ratio (10-20) Glucose (70-99(Fasting)) mg/dl POC Glucose (other) 116 H (70-99) mg/dl Calcium (8.6-10.3) mg/dl POC Ioniz Calcium Jeremie 1.19 (1.12-1.32) mmol/l Phosphorus (2.5-4.9) mg/dl Magnesium (1.7-2.4) mg/dl Total Bilirubin (0.2-1.0) mg/dl AST (13-39) U/L ALT (7-52) U/L Alkaline Phosphatase (34-104) U/L Total Creatine Kinase (30-223) U/L Troponin I High Sens (0-20) pg/ml Total Protein (6.0-8.3) gm/dl Albumin (3.4-5.0) gm/dl Globulin (2.5-4.0) gm/dl Albumin/Globulin Ratio (0.9-2) TSH 0.171 L (0.300-4.500) uIu/ml Free T4 1.17 (0.61-1.60) ng/dl Urine Color Urine Appearance (Clear) Urine pH (4.5-7.5) Ur Specific [place] (1.000-1.030) Urine Protein (Negative) Urine Glucose (UA) (Negative) Urine Ketones (Negative) Urine Blood (Negative) Urine Nitrite (Negative) Urine Bilirubin (Negative) Urine Urobilinogen (Negative) Ur Leukocyte Esterase (Negative) Urine Opiates Screen (Neg) Ur Methadone, Qual (Neg) Urine Barbiturates (Neg) Ur Phencyclidine (PCP) (Neg) U Amphetamin/Meth Scrn (Neg) MDMA (Ecstasy) Screen (Neg) U Benzodiazepines Scrn (Neg) Ur Cocaine Metabolite (Neg) U Marijuana (THC) Screen (Neg) Ethyl Alcohol mg/dL (<10.0) mg/dl SARS-CoV-2, RNA, NAAT (NEGATIVE) 01/26/23 01/26/23 01/26/23 Range/Units 22:30 22:30 23:35 WBC (4.8-10.8) K/ul RBC (4.70-6.10) M/uL Hgb (14.0-18.0) g/dl POC Hgb (14.0-18.0) g/dl Hct (42.0-52.0) % POC Hct (42-52) % MCV (80.0-100.0) fL MCH (25.0-34.0) pg MCHC (32.0-36.0) g/dL RDW Std Deviation (36.4-46.3) fL RDW Coeff of Adele (11.5-14.5) % Plt Count (130-400) K/uL MPV (9.4-12.4) fL Immature Gran % (Auto) % Neut % (Auto) % Lymph % (Auto) % Robeson % (Auto) % Eos % (Auto) % Baso % (Auto) % Neut # (Auto) (1.40-6.50) K/uL Lymph # (Auto) (1.2-3.4) K/uL Robeson # (Auto) (0.11-0.59) K/uL Eos # (Auto) (0-0.50) K/uL Baso # (Auto) (0-0.2) K/uL Immature Gran # (Auto) (0.01-0.20) K/uL PT (9.0-12.0) Seconds INR (0.9-1.1) POC Sodium (135-144) mmol/L Sodium (136-145) mmol/L POC Potassium (3.3-5.0) mmol/L Potassium (3.5-5.1) mmol/L POC Chloride (101-112) mmol/L Chloride (98-107) mmol/L Carbon Dioxide (21-32) mmol/L POC Total CO2 (24-31) mmol/L Anion Gap (3-11) POC Anion Gap (16-25) mmol/L POC BUN (7-18) mg/dl BUN (6-23) mg/dl Creatinine (0.6-1.4) mg/dl POC Creatinine (0.6-1.3) mg/dl Est Cr Clr Drug Dosing Est GFR ( Amer) ml/min Est GFR (Non-Af Amer) ml/min BUN/Creatinine Ratio (10-20) Glucose (70-99(Fasting)) mg/dl POC Glucose (other) (70-99) mg/dl Calcium (8.6-10.3) mg/dl POC Ioniz Calcium Jeremie (1.12-1.32) mmol/l Phosphorus (2.5-4.9) mg/dl Magnesium (1.7-2.4) mg/dl Total Bilirubin (0.2-1.0) mg/dl AST (13-39) U/L ALT (7-52) U/L Alkaline Phosphatase (34-104) U/L Total Creatine Kinase (30-223) U/L Troponin I High Sens (0-20) pg/ml Total Protein (6.0-8.3) gm/dl Albumin (3.4-5.0) gm/dl Globulin (2.5-4.0) gm/dl Albumin/Globulin Ratio (0.9-2) TSH (0.300-4.500) uIu/ml Free T4 (0.61-1.60) ng/dl Urine Color Yellow Urine Appearance Clear (Clear) Urine pH 7.0 (4.5-7.5) Ur Specific [place] 1.023 (1.000-1.030) Urine Protein Negative (Negative) Urine Glucose (UA) Negative (Negative) Urine Ketones Negative (Negative) Urine Blood Negative (Negative) Urine Nitrite Negative (Negative) Urine Bilirubin Negative (Negative) Urine Urobilinogen Negative (Negative) Ur Leukocyte Esterase Negative (Negative) Urine Opiates Screen Neg (Neg) Ur Methadone, Qual Neg (Neg) Urine Barbiturates Neg (Neg) Ur Phencyclidine (PCP) Neg (Neg) U Amphetamin/Meth Scrn Neg (Neg) MDMA (Ecstasy) Screen Neg (Neg) U Benzodiazepines Scrn Neg (Neg) Ur Cocaine Metabolite Pos H (Neg) U Marijuana (THC) Screen Neg (Neg) Ethyl Alcohol mg/dL (<10.0) mg/dl SARS-CoV-2, RNA, NAAT NEGATIVE (NEGATIVE) Administered Medications Discontinued Medications Sodium Chloride (Nss 1000ml) 1,000 mls @ 999 mls/hr IV .Q1H1M ONE Stop: 01/26/23 20:16 Last Infusion: 01/26/23 22:42 Dose: 0 mls/hr Documented By: Admin: 01/26/23 21:35 Dose: 999 mls/hr Documented By: QGV Potassium Chloride (K Vicente / Wtr) 10 meq in 100 mls @ 100 mls/hr IV Q1H CHIARA; Protocol Stop: 01/27/23 01:29 Last Admin: 01/26/23 23:55 Dose: Not Given Documented By: MARANDA Sodium Chloride (Nss) 500 mls @ 125 mls/hr IV .Q4H CHIARA Stop: 02/25/23 23:29 Last Admin: 01/26/23 23:55 Dose: Not Given Documented By: MARANDA Ioversol (Optiray 350 100ml) 81 ml IV ONCE ONE Stop: 01/26/23 21:07 Last Admin: 01/26/23 21:07 Dose: 81 ml Documented By: ANTONIA Lorazepam (Lorazepam 2 Mg/1 Ml Vial) 1 mg IV NOW STA Stop: 01/26/23 19:19 Last Admin: 01/26/23 19:53 Dose: Not Given Documented By: MARANDA Lorazepam (Lorazepam 2 Mg/1 Ml Vial) 1 mg IM NOW STA Stop: 01/26/23 19:48 Last Admin: 01/26/23 19:52 Dose: 1 mg Documented By: MARANDA Olanzapine (Olanzapine 10 Mg/2.1 Ml Sdv) 5 mg IM NOW STA Stop: 01/27/23 01:30 Last Admin: 01/27/23 02:08 Dose: Not Given Documented By: LETHA Olanzapine (Olanzapine 10 Mg/2.1 Ml Sdv) Confirm Administered Dose 10 mg IM .STK-MED ONE Stop: 01/27/23 01:39 Last Admin: 01/27/23 02:07 Dose: 5 mg Documented By: LETHA Imaging Data Radiologist's Impression: Chest X-Ray 01/26/23 19:17 XR chest 1V portable HISTORY: 63 years-old Male weakness acute weakness COMPARISON: 07/10/2022 TECHNIQUE: AP view of the chest FINDINGS: Cardiac silhouette is mildly enlarged. No pneumothorax, pleural effusion, airspace consolidation or pulmonary edema. Chronic appearing left-sided rib fractures with chronic right clavicular fracture. IMPRESSION: No acute process. ACT 112: Negative or not required by law. The above report was generated using voice recognition software. It may contain grammatical, syntax or spelling errors. Electronically signed by: Eliazar Gonzalez M.D. 01/26/2023 7:34 PM Abdomen/Pelvis CT 01/26/23 19:19 Exam(s): CT ABDOMEN + PELVIS With Contrast EXAM: CT Abdomen and Pelvis With Intravenous Contrast CLINICAL HISTORY: Reason for exam: AMS, fall, trauma. TECHNIQUE: Axial computed tomography images of the abdomen and pelvis with intravenous contrast. CTDI is 14.82 mGy and DLP is 720.58 mGy-cm. Automated exposure control was utilized for the study. A dose lowering technique was utilized adhering to the principles of ALARA. CONTRAST: Contrast must be dictated COMPARISON: No relevant prior studies available. FINDINGS: Lung bases: Unremarkable. No mass. No consolidation. ABDOMEN: Liver: Unremarkable. No mass. Gallbladder and bile ducts: Unremarkable. No calcified stones. No ductal dilation. Pancreas: Unremarkable. No mass. No ductal dilation. Spleen: Unremarkable. No splenomegaly. Adrenals: Unremarkable. No mass. Kidneys and ureters: Punctate nonobstructing right upper pole renal calculi measuring approximately 1-2 mm. Stomach and bowel: Diverticulosis, without acute diverticulitis. No small bowel obstruction. No free intraperitoneal air. PELVIS: Appendix: Normal appendix. Bladder: Unremarkable. No mass. Reproductive: Unremarkable as visualized. ABDOMEN and PELVIS: Intraperitoneal space: Unremarkable. No free air. No significant fluid collection. Bones/joints: Severe degenerative and postoperative changes of the lumbar spine. See the concomitant lumbar spine CT scan for further evaluation. Left sacroiliac joint arthrodesis. No acute fracture. No dislocation. Soft tissues: Unremarkable. Vasculature: Atherosclerotic changes of the aorta. No abdominal aortic aneurysm. Lymph nodes: Unremarkable. No enlarged lymph nodes. IMPRESSION: No acute findings in the abdomen or pelvis. Electronically signed by: Frank Da Silva MD 01/26/23 22:[address] 01/26/23 19:19 Exam(s): CT C SPINE EXAM: CT Cervical Spine Without Intravenous Contrast CLINICAL HISTORY: Reason for exam: AMS, fall, trauma. TECHNIQUE: Axial computed tomography images of the cervical spine without intravenous contrast. CTDI is 15.51 mGy and DLP is 450.24 mGy-cm. Automated exposure control was utilized for the study. A dose lowering technique was utilized adhering to the principles of ALARA. COMPARISON: No relevant prior studies available. FINDINGS: The vertebral body heights are maintained. There is no spondylolisthesis. The craniocervical junction is intact. The atlanto-dens interval is maintained. The dens is intact. Multilevel cervical spondylosis and degenerative disc disease. Straightening of the cervical lordosis. Multilevel foraminal stenosis. The unenhanced neck soft tissues are grossly unremarkable. The visualized lung apices are grossly clear. IMPRESSION: No cervical spine fracture. Electronically signed by: Frank Da Silva MD 01/26/23 22:[address] 01/26/23 19:19 Exam(s): CT CHEST With Contrast EXAM: CT Chest With Intravenous Contrast CLINICAL HISTORY: Reason for exam: AMS, fall, trauma. TECHNIQUE: Axial computed tomography images of the chest with intravenous contrast. CTDI is 13.91 mGy and DLP is 474.52 mGy-cm. Automated exposure control was utilized for the study. A dose lowering technique was utilized adhering to the principles of ALARA. CONTRAST: Contrast must be dictated COMPARISON: No relevant prior studies available. FINDINGS: Lungs: Unremarkable. No mass. No consolidation. Pleural space: Unremarkable. No significant effusion. No focal infiltrate, pulmonary contusion, or pneumothorax. Heart: Unremarkable. No cardiomegaly. No significant pericardial effusion. No significant coronary artery calcifications. Bones/joints: T3 superior endplate fracture, see the concomitant thoracic spine CT scan. Multiple old, healed, predominately nonunited left sided rib fractures. No dislocation. Soft tissues: Unremarkable. Vasculature: Unremarkable. No thoracic aortic aneurysm. Lymph nodes: Unremarkable. No enlarged lymph nodes. IMPRESSION: 1. No focal infiltrate, pulmonary contusion, or pneumothorax. 2. T3 superior endplate fracture, see the concomitant thoracic spine CT scan. 3. Multiple old, healed, predominately nonunited left sided rib fractures. Electronically signed by: Frank Da Silva MD 01/26/23 22:[address] 01/26/23 19:19 Exam(s): CT FACIAL Without Contrast EXAM: CT Maxillofacial Without Intravenous Contrast CLINICAL HISTORY: Reason for exam: AMS, fall, trauma. TECHNIQUE: Axial computed tomography images of the face without intravenous contrast. CTDI is 35.21 mGy and DLP is 537.48 mGy-cm. Automated exposure control was utilized for the study. A dose lowering technique was utilized adhering to the principles of ALARA. COMPARISON: No relevant prior studies available. FINDINGS: The mandible is intact. Intact maxillary alveolus. The orbital rims and floors are intact. The intraorbital contents are grossly unremarkable. Intact nasal bones, nasal septum, and maxillary spines. Mildly depressed left-sided zygomatic arch. Correlate for trauma to this location. Intact pterygoid processes. IMPRESSION: Mildly depressed left-sided zygomatic arch. Correlate for trauma to this location. Electronically signed by: Frank Da Silva MD 01/26/23 22:[address] 01/26/23 19:19 Exam(s): CT HEAD Without Contrast EXAM: CT Head Without Intravenous Contrast CLINICAL HISTORY: Reason for exam: AMS, fall, trauma. TECHNIQUE: Axial computed tomography images of the head/brain without intravenous contrast. CTDI is 35.21 mGy and DLP is 537.48 mGy-cm. Automated exposure control was utilized for the study. A dose lowering technique was utilized adhering to the principles of ALARA. COMPARISON: No relevant prior studies available. FINDINGS: No acute intracranial hemorrhage. No midline shift or mass effect. The territorial mcrae-white matter differentiation is maintained throughout. Age-related cerebral volume loss. Periventricular and subcortical white matter hypoattenuation, consistent with chronic microangiopathy. The visualized orbits appear grossly unremarkable. The calvarium is intact. The visualized paranasal sinuses and mastoid air cells are grossly clear. IMPRESSION: No acute intracranial hemorrhage, midline shift, or mass effect. Electronically signed by: Frank Da Silva MD 01/26/23 22:[address] 01/26/23 19:19 Exam(s): CT L SPINE With Contrast EXAM: CT Lumbar Spine With Intravenous Contrast CLINICAL HISTORY: Reason for exam: AMS, fall, trauma. TECHNIQUE: Axial computed tomography images of the lumbar spine with intravenous contrast. CTDI is 14.85 mGy and DLP is 720.58 mGy-cm. Automated exposure control was utilized for the study. A dose lowering technique was utilized adhering to the principles of ALARA. CONTRAST: Contrast must be dictated COMPARISON: Comparison made to prior lumbar spine MRI from July 12, 2022. FINDINGS: Vertebrae: Patient is status post posterior fusion of L2-S1 with transportation screws and connecting rods in place. There is a remote fracture of the L2 vertebral body with transpedicular screws extending through the nonunion fracture plane. There is diffuse osteopenia throughout the visualized bones. No acute fracture. There is fusion across the left SI joint with screws in place. Discs/spinal canal/neural foramina: There are interbody fusion device is in place at L2-3 and L4-5. There is solid interbody fusion at L5-S1. No acute findings. No spinal canal stenosis. Soft tissues: Right nephrolithiasis. IMPRESSION: No evidence of acute lumbar spine pathology. Electronically signed by: Ariela Hendricks MD 01/26/23 22:[address] 01/26/23 19:19 Exam(s): CT T SPINE EXAM: CT Thoracic Spine Without Intravenous Contrast CLINICAL HISTORY: Reason for exam: AMS, fall, trauma. TECHNIQUE: Axial computed tomography images of the thoracic spine without intravenous contrast. CTDI is 13.91 mGy and DLP is 474.52 mGy-cm. Automated exposure control was utilized for the study. A dose lowering technique was utilized adhering to the principles of ALARA. COMPARISON: No relevant prior studies available. FINDINGS: Acute fracture involving the superior endplate of T3. This is limited in evaluation due to large field of view and genitalia/osteoporosis. Thoracic spine MRI recommended. The thoracic kyphosis is preserved. There is no spondylolisthesis. The posterior elements are maintained, without evidence of acute fracture. The pedicles are intact. Multilevel thoracic spondylosis and degenerative disc disease. IMPRESSION: Acute fracture involving the superior endplate of T3. This is limited in evaluation due to large field of view and genitalia/osteoporosis. Thoracic spine MRI recommended. Electronically signed by: Frank Da Silva MD 01/26/23 22:18 PM Discharge Plan Visit Data Chief Complaint: Head Injury, Minor Stated Complaint: HEAD INJURY ED Provider: Mejia Leo Discharge Problem: Closed T3 fracture, Homeless, Closed fracture of left zygomatic arch, Elevated CPK, Encephalopathy Patient Disposition: Admitted As Inpatient Discharge Instructions Interventions: ED Discharge Assessment Last Done: 01/27/23 01:28
[2023-01-26 21:01] LABS: iSTAT Creatinine 0.9 mg/dl (0.6-1.3); iSTAT Hemoglobin 10.5 g/dl (14.0-18.0); iSTAT Ionized Calcium 1.19 mmol/l (1.12-1.32); iSTAT Potassium 3.1 mmol/L (3.3-5.0)
[2023-01-26] MEDS ORDERED: OPTIRAY 350 100ml IV ONE (21:06)
[2023-01-26 21:25] LABS: Alanine Aminotransferase 22 U/L (7-52); Albumin Globulin Ratio 1.3 (0.9-2); Albumin Level 3.7 gm/dl (3.4-5.0); Alkaline Phosphatase 95 U/L (34-104); Anion Gap 5 (3-11); Aspartate Aminotransferase 40 U/L (13-39); BUN Creatinine Ratio 11.4 (10-20); Bilirubin,Total 0.4 mg/dl (0.2-1.0); Blood Urea Nitrogen 10 mg/dl (6-23); Calcium 9.1 mg/dl (8.6-10.3); Carbon Dioxide 26 mmol/L (21-32); Chloride 106 mmol/L (98-107); Creatine Kinase 341 U/L (30-223); Est GFR (African American) 105.2 ml/min; Est GFR (Non-African American) 90.8 ml/min; Globulin 2.8 gm/dl (2.5-4.0); Glucose 114 mg/dl (70-99(Fasting)); Potassium 3.2 mmol/L (3.5-5.1); Sodium 137 mmol/L (136-145); Total Protein 6.5 gm/dl (6.0-8.3)
[2023-01-26 21:32] LABS: Troponin I High Sensitivity 34.7 pg/ml (0-20)
[2023-01-26 21:34] LABS: Basophils # (auto) 0.03 K/uL (0-0.2); Basophils % (auto) 0.2 %; Eosinophils # (auto) 0.15 K/uL (0-0.50); Eosinophils % (auto) 1.2 %; Hematocrit (blood only) 29.4 % (42.0-52.0); Hemoglobin 9.6 g/dl (14.0-18.0); INR 1.1 (0.9-1.1); Immature Granulocytes # (auto) 0.06 K/uL (0.01-0.20); Immature Granulocytes % (auto) 0.5 %; Lymphocytes # (auto) 1.47 K/uL (1.2-3.4); Lymphocytes % (auto) 11.4 %; Mean Corpuscular Hemoglobin 26.6 pg (25.0-34.0); Mean Corpuscular Hgb Conc 32.7 g/dL (32.0-36.0); Mean Corpuscular Volume 81.4 fL (80.0-100.0); Monocytes # (auto) 0.86 K/uL (0.11-0.59); Monocytes % (auto) 6.7 %; Neutrophils # (auto) 10.32 K/uL (1.40-6.50); Platelet Count 405 K/uL (130-400); Prothrombin Time 11.8 Seconds (9.0-12.0); RDW Coefficient of Variation 14.8 % (11.5-14.5); RDW Standard Deviation 43.6 fL (36.4-46.3); Red Blood Count 3.61 M/uL (4.70-6.10); White Blood Count 12.89 K/ul (4.8-10.8)
[2023-01-26 21:40] LABS: Thyroid Stimulating Hormone 0.171 uIu/ml (0.300-4.500)
--- NOTE | 2023-01-26 22:17 | CT Scan Report ---
Exam(s): CT HEAD Without Contrast EXAM: CT Head Without Intravenous Contrast CLINICAL HISTORY: Reason for exam: AMS, fall, trauma. TECHNIQUE: Axial computed tomography images of the head/brain without intravenous contrast. CTDI is 35.21 mGy and DLP is 537.48 mGy-cm. Automated exposure control was utilized for the study. A dose lowering technique was utilized adhering to the principles of ALARA. COMPARISON: No relevant prior studies available. FINDINGS: No acute intracranial hemorrhage. No midline shift or mass effect. The territorial mcrae-white matter differentiation is maintained throughout. Age-related cerebral volume loss. Periventricular and subcortical white matter hypoattenuation, consistent with chronic microangiopathy. The visualized orbits appear grossly unremarkable. The calvarium is intact. The visualized paranasal sinuses and mastoid air cells are grossly clear. IMPRESSION: No acute intracranial hemorrhage, midline shift, or mass effect. Electronically signed by: Frank Da Silva MD 01/26/23 22:16 PM
--- NOTE | 2023-01-26 22:18 | CT Scan Report ---
Exam(s): CT C SPINE EXAM: CT Cervical Spine Without Intravenous Contrast CLINICAL HISTORY: Reason for exam: AMS, fall, trauma. TECHNIQUE: Axial computed tomography images of the cervical spine without intravenous contrast. CTDI is 15.51 mGy and DLP is 450.24 mGy-cm. Automated exposure control was utilized for the study. A dose lowering technique was utilized adhering to the principles of ALARA. COMPARISON: No relevant prior studies available. FINDINGS: The vertebral body heights are maintained. There is no spondylolisthesis. The craniocervical junction is intact. The atlanto-dens interval is maintained. The dens is intact. Multilevel cervical spondylosis and degenerative disc disease. Straightening of the cervical lordosis. Multilevel foraminal stenosis. The unenhanced neck soft tissues are grossly unremarkable. The visualized lung apices are grossly clear. IMPRESSION: No cervical spine fracture. Electronically signed by: Frank Da Silva MD 01/26/23 22:17 PM
--- NOTE | 2023-01-26 22:19 | CT Scan Report ---
Exam(s): CT T SPINE EXAM: CT Thoracic Spine Without Intravenous Contrast CLINICAL HISTORY: Reason for exam: AMS, fall, trauma. TECHNIQUE: Axial computed tomography images of the thoracic spine without intravenous contrast. CTDI is 13.91 mGy and DLP is 474.52 mGy-cm. Automated exposure control was utilized for the study. A dose lowering technique was utilized adhering to the principles of ALARA. COMPARISON: No relevant prior studies available. FINDINGS: Acute fracture involving the superior endplate of T3. This is limited in evaluation due to large field of view and genitalia/osteoporosis. Thoracic spine MRI recommended. The thoracic kyphosis is preserved. There is no spondylolisthesis. The posterior elements are maintained, without evidence of acute fracture. The pedicles are intact. Multilevel thoracic spondylosis and degenerative disc disease. IMPRESSION: Acute fracture involving the superior endplate of T3. This is limited in evaluation due to large field of view and genitalia/osteoporosis. Thoracic spine MRI recommended. Electronically signed by: Frank Da Silva MD 01/26/23 22:18 PM
--- NOTE | 2023-01-26 22:21 | CT Scan Report ---
Exam(s): CT FACIAL Without Contrast EXAM: CT Maxillofacial Without Intravenous Contrast CLINICAL HISTORY: Reason for exam: AMS, fall, trauma. TECHNIQUE: Axial computed tomography images of the face without intravenous contrast. CTDI is 35.21 mGy and DLP is 537.48 mGy-cm. Automated exposure control was utilized for the study. A dose lowering technique was utilized adhering to the principles of ALARA. COMPARISON: No relevant prior studies available. FINDINGS: The mandible is intact. Intact maxillary alveolus. The orbital rims and floors are intact. The intraorbital contents are grossly unremarkable. Intact nasal bones, nasal septum, and maxillary spines. Mildly depressed left-sided zygomatic arch. Correlate for trauma to this location. Intact pterygoid processes. IMPRESSION: Mildly depressed left-sided zygomatic arch. Correlate for trauma to this location. Electronically signed by: Frank Da Silva MD 01/26/23 22:20 PM
--- NOTE | 2023-01-26 22:22 | CT Scan Report ---
Exam(s): CT CHEST With Contrast EXAM: CT Chest With Intravenous Contrast CLINICAL HISTORY: Reason for exam: AMS, fall, trauma. TECHNIQUE: Axial computed tomography images of the chest with intravenous contrast. CTDI is 13.91 mGy and DLP is 474.52 mGy-cm. Automated exposure control was utilized for the study. A dose lowering technique was utilized adhering to the principles of ALARA. CONTRAST: Contrast must be dictated COMPARISON: No relevant prior studies available. FINDINGS: Lungs: Unremarkable. No mass. No consolidation. Pleural space: Unremarkable. No significant effusion. No focal infiltrate, pulmonary contusion, or pneumothorax. Heart: Unremarkable. No cardiomegaly. No significant pericardial effusion. No significant coronary artery calcifications. Bones/joints: T3 superior endplate fracture, see the concomitant thoracic spine CT scan. Multiple old, healed, predominately nonunited left sided rib fractures. No dislocation. Soft tissues: Unremarkable. Vasculature: Unremarkable. No thoracic aortic aneurysm. Lymph nodes: Unremarkable. No enlarged lymph nodes. IMPRESSION: 1. No focal infiltrate, pulmonary contusion, or pneumothorax. 2. T3 superior endplate fracture, see the concomitant thoracic spine CT scan. 3. Multiple old, healed, predominately nonunited left sided rib fractures. Electronically signed by: Frank Da Silva MD 01/26/23 22:21 PM
--- NOTE | 2023-01-26 22:26 | CT Scan Report ---
Exam(s): CT ABDOMEN + PELVIS With Contrast EXAM: CT Abdomen and Pelvis With Intravenous Contrast CLINICAL HISTORY: Reason for exam: AMS, fall, trauma. TECHNIQUE: Axial computed tomography images of the abdomen and pelvis with intravenous contrast. CTDI is 14.82 mGy and DLP is 720.58 mGy-cm. Automated exposure control was utilized for the study. A dose lowering technique was utilized adhering to the principles of ALARA. CONTRAST: Contrast must be dictated COMPARISON: No relevant prior studies available. FINDINGS: Lung bases: Unremarkable. No mass. No consolidation. ABDOMEN: Liver: Unremarkable. No mass. Gallbladder and bile ducts: Unremarkable. No calcified stones. No ductal dilation. Pancreas: Unremarkable. No mass. No ductal dilation. Spleen: Unremarkable. No splenomegaly. Adrenals: Unremarkable. No mass. Kidneys and ureters: Punctate nonobstructing right upper pole renal calculi measuring approximately 1-2 mm. Stomach and bowel: Diverticulosis, without acute diverticulitis. No small bowel obstruction. No free intraperitoneal air. PELVIS: Appendix: Normal appendix. Bladder: Unremarkable. No mass. Reproductive: Unremarkable as visualized. ABDOMEN and PELVIS: Intraperitoneal space: Unremarkable. No free air. No significant fluid collection. Bones/joints: Severe degenerative and postoperative changes of the lumbar spine. See the concomitant lumbar spine CT scan for further evaluation. Left sacroiliac joint arthrodesis. No acute fracture. No dislocation. Soft tissues: Unremarkable. Vasculature: Atherosclerotic changes of the aorta. No abdominal aortic aneurysm. Lymph nodes: Unremarkable. No enlarged lymph nodes. IMPRESSION: No acute findings in the abdomen or pelvis. Electronically signed by: Frank Da Silva MD 01/26/23 22:25 PM
[2023-01-26 22:34] LABS: T4 Free Thyroxine 1.17 ng/dl (0.61-1.60)
--- NOTE | 2023-01-26 22:36 | CT Scan Report ---
Exam(s): CT L SPINE With Contrast EXAM: CT Lumbar Spine With Intravenous Contrast CLINICAL HISTORY: Reason for exam: AMS, fall, trauma. TECHNIQUE: Axial computed tomography images of the lumbar spine with intravenous contrast. CTDI is 14.85 mGy and DLP is 720.58 mGy-cm. Automated exposure control was utilized for the study. A dose lowering technique was utilized adhering to the principles of ALARA. CONTRAST: Contrast must be dictated COMPARISON: Comparison made to prior lumbar spine MRI from July 12, 2022. FINDINGS: Vertebrae: Patient is status post posterior fusion of L2-S1 with transportation screws and connecting rods in place. There is a remote fracture of the L2 vertebral body with transpedicular screws extending through the nonunion fracture plane. There is diffuse osteopenia throughout the visualized bones. No acute fracture. There is fusion across the left SI joint with screws in place. Discs/spinal canal/neural foramina: There are interbody fusion device is in place at L2-3 and L4-5. There is solid interbody fusion at L5-S1. No acute findings. No spinal canal stenosis. Soft tissues: Right nephrolithiasis. IMPRESSION: No evidence of acute lumbar spine pathology. Electronically signed by: Ariela Hendricks MD 01/26/23 22:35 PM
[2023-01-26 22:55] LABS: Appearance Urine Clear (Clear); Bilirubin Urine Negative (Negative); Blood Urine Negative (Negative); Color Urine Yellow; Glucose Urine UA Negative (Negative); Ketones Urine Negative (Negative); Leukocyte Esterase Urine Negative (Negative); Nitrite Urine Negative (Negative); Protein Urine Negative (Negative); Specific Gravity Urine 1.023 (1.000-1.030); Urobilinogen Urine Negative (Negative)
[2023-01-26 23:14] LABS: Amphetamines+Metham, Urine Neg (Neg); Barbiturates, Urine Neg (Neg); Benzodiazepine, Urine Neg (Neg); Cocaine, Urine Pos (Neg); MDMA (Ecstacy), Urine Neg (Neg); Methadone, Urine Neg (Neg); Opiate, Urine Neg (Neg); Phencyclidine, Urine Neg (Neg)
[2023-01-26] MEDS ORDERED: POTASSIUM CHLORIDE / WTR 10 MEQ/100 ML PLCT IV SCH (23:30)
[2023-01-26] MEDS ORDERED: SODIUM CHLORIDE 0.9% 500 ML IV SCH (23:30)
--- NOTE | 2023-01-26 23:43 | History & Physical Report ---
Date of Service January 26, 2023 Assessment & Plan (1) Closed T3 fracture: Plan: Patient noted to have acute closed T3 superior endplate fracture. No mention of retropulsed fragments, although imaging is somewhat obscured. Strength intact bilateral LE. -MRI ordered -Fall precautions -Pain control with Tylenol, Toradol and Tramadol (2) Closed fracture of left zygomatic arch: Plan: Mildly depressed left sided zygomatic arch fracture. CN intact on limited exam. Patient reports his vision is clear -Pain control with Tylenol, Toradol and Tramadol PRN (3) Encephalopathy: Plan: Patient not agreeable to extensive questioning or exam. He is oriented to self and location -Continue to monitor mental state -GCS monitoring F/E/N - KPhos repletion, repeat labs in AM, Regular diet as tolerated Ppx - Low risk for DVT Code - DNR/DNI per discussion with patient "No, I don't want any of that done" when asked about CPR, Intubation, Mechanical ventilation Dispo - Admit to medical History of Present Illness Chief Complaint: fall Primary Care Provider: Mateo Carrasco MD Tigre Camacho is a 63yo male with history of HTN, polysubstance abuse and homelessness presenting after a fall. Patient does not provide details of events prior to arrival. Per discussion with ER staff, he was dropped off at the ER with some report of confusion and a fall. Patient states that he fell down the stairs yesterday. He reports pain in the face, shoulders and hips. No additional complaints - patient is not fully cooperative with history and physical. In the ER he is afebrile, hypertensive, no respiratory distress, adequate oxygenation on room air. Patient tried to get out of bed in the ER and fell. No LOC or head trauma. ER Course: Ativan 1mg IM NSS x 1L Allergies Allergy/AdvReac Type Severity Reaction Status Date / Time gabapentin Allergy Severe SHORT OF Verified 01/26/23 19:56 BREATH cat dander Allergy Intermediate itchy Verified 01/26/23 19:56 eyes, sneezing codeine AdvReac Intermediate GI upset Verified 01/26/23 19:56 Home Medications Medication Instructions Recorded Confirmed Type celecoxib 100 mg capsule (Celebrex) 100 mg PO BID #60 caps 08/16/22 01/26/23 Rx tramadol 50 mg tablet 50 - 100 mg PO Q6H PRN pain, 11/10/22 04/22/23 Rx moderate #40 tabs cyclobenzaprine 10 mg tablet 10 mg PO TID PRN muscle spasm #30 11/23/22 01/26/23 Rx tabs doxycycline hyclate 100 mg capsule 100 mg PO BID #60 caps 01/01/23 01/26/23 Rx duloxetine 60 mg capsule,delayed 60 mg PO DAILY 01/26/23 01/26/23 History release ketorolac 10 mg tablet 10 mg PO BID PRN pain,moderate 01/26/23 01/26/23 History Past Med/Surg History Medical History Blood loss anemia Diastolic dysfunction Discitis HTN (hypertension) Hyperglycemia Hypertension Lower back pain Lumbar spinal stenosis LVH (left ventricular hypertrophy) LVH (left ventricular hypertrophy) severe Medical non-compliance Obesity Osteoarthritis Polysubstance use disorder Psoas abscess Psoas abscess Rib fracture left sided, remotely, healed without intervention- does have residual pain over area Rib pain on left side Tobacco dependence Surgical History History of arthroscopy of shoulder left History of back surgery x5 total History of knee replacement right S/P TKR (total knee replacement) Family History Denies family history of Ovarian cancer Prostate cancer Myocardial infarction Breast cancer Colorectal cancer Social History Smoking Status: Never smoker Tobacco Type: Cigarettes Second Hand Exposure: Yes; Hx Alcohol Use: No Hx Substance Use: Yes Prescribed Medications: Marijuana Last Used Substance: Days (ago) Last Used Substance Other:: "snorted some white powder a friend gave me" Preferred Language: Samoan Communication Ability: Effective Vitamin Manager Required: No Beliefs That Will Affect Care: None marital status: Single Current Living Situation: Alone Current Living Situation Comment: pt states that he moves throughout multiple motel locations current occupational status: unemployed Feels Safe at Home: Yes Dental Care, Regularly: No Physical Activity Frequency: Does not Exercise Seatbelt Use: always Assistive Devices: Walker Review of Systems Review of Systems: All systems reviewed & are unremarkable except as noted in HPI & below patient not fully cooperative with history. He denies chest pain, abdominal pain, shortness of breath, vomiting and diarrhea Physical Exam Physical Exam: General: patient resting naked in bed, mildly agitated, not fully compliant with history of physical exam, poorly kempt Skin: warm, dry, intact, ecchymosis on left face, right shoulder. HEENT: Periorbital edema, subconjunctival hemorrhage left eye, PERRL, EOMI, anicteric sclera, external ear normal to inspection and nontender, nares patent, moist mucus membranes, poor dentition, no oropharyngeal lesions, neck supple, trachea midline, no LAD, no thyromegaly, no JVD Heart: +S1/S2, regular, no m/r/g, no chest wall bruising Lungs: equal air entry bilaterally, no rales/rhonchi/wheezes Abd: +BS, soft, NT/ND, no masses/organomegaly/ascites, no abdominal bruising Ext: warm, 2+ pulses in UE/LE bilaterally, no clubbing/cyanosis or edema Neuro: moving all extremities with equal strength Results & Data Results & Data Vital Signs (Past 12 Hours) Vital Signs Temp Pulse Pulse Resp BP BP Pulse Ox 01/26/23 21:14 90 18 193/104 H 100 01/26/23 21:39 84 18 184/131 H 97 01/26/23 20:40 88 01/26/23 19:37 94 H 20 96 01/26/23 18:53 36.9 C 110 H 18 157/88 H 99 O2 Del Method 01/26/23 21:14 Room Air 01/26/23 21:39 Room Air 01/26/23 20:40 01/26/23 19:37 Room Air 01/26/23 18:53 Room Air Laboratory Results Laboratory Results WBC 12.89 K/ul (4.8-10.8) H 01/26/23 20:42 RBC 3.61 M/uL (4.70-6.10) L 01/26/23 20:42 Hgb 9.6 g/dl (14.0-18.0) L 01/26/23 20:42 POC Hgb 10.5 g/dl (14.0-18.0) L 01/26/23 20:49 Hct 29.4 % (42.0-52.0) L 01/26/23 20:42 POC Hct 31 % (42-52) L 01/26/23 20:49 MCV 81.4 fL (80.0-100.0) 01/26/23 20:42 MCH 26.6 pg (25.0-34.0) 01/26/23 20:42 MCHC 32.7 g/dL (32.0-36.0) 01/26/23 20:42 RDW Std Deviation 43.6 fL (36.4-46.3) 01/26/23 20:42 RDW Coeff of Adeel 14.8 % (11.5-14.5) H 01/26/23 20:42 Plt Count 405 K/uL (130-400) H 01/26/23 20:42 MPV 9.0 fL (9.4-12.4) L 01/26/23 20:42 Immature Gran % (Auto) 0.5 % 01/26/23 20:42 Neut % (Auto) 80.0 % 01/26/23 20:42 Lymph % (Auto) 11.4 % 01/26/23 20:42 [place] % (Auto) 6.7 % 01/26/23 20:42 Eos % (Auto) 1.2 % 01/26/23 20:42 Baso % (Auto) 0.2 % 01/26/23 20:42 Neut # (Auto) 10.32 K/uL (1.40-6.50) H 01/26/23 20:42 Lymph # (Auto) 1.47 K/uL (1.2-3.4) 01/26/23 20:42 [place] # (Auto) 0.86 K/uL (0.11-0.59) H 01/26/23 20:42 Eos # (Auto) 0.15 K/uL (0-0.50) 01/26/23 20:42 Baso # (Auto) 0.03 K/uL (0-0.2) 01/26/23 20:42 Immature Gran # (Auto) 0.06 K/uL (0.01-0.20) 01/26/23 20:42 PT 11.8 Seconds (9.0-12.0) 01/26/23 20:42 INR 1.1 (0.9-1.1) 01/26/23 20:42 POC Sodium 136 mmol/L (135-144) 01/26/23 20:49 Sodium 137 mmol/L (136-145) 01/26/23 20:42 POC Potassium 3.1 mmol/L (3.3-5.0) L 01/26/23 20:49 Potassium 3.2 mmol/L (3.5-5.1) L 01/26/23 20:42 POC Chloride 101 mmol/L (101-112) 01/26/23 20:49 Chloride 106 mmol/L (98-107) 01/26/23 20:42 Carbon Dioxide 26 mmol/L (21-32) 01/26/23 20:42 POC Total CO2 25 mmol/L (24-31) 01/26/23 20:49 Anion Gap 5 (3-11) 01/26/23 20:42 POC Anion Gap 14.0 mmol/L (16-25) L 01/26/23 20:49 POC BUN 9 mg/dl (7-18) 01/26/23 20:49 BUN 10 mg/dl (6-23) 01/26/23 20:42 Creatinine 0.88 mg/dl (0.6-1.4) 01/26/23 20:42 POC Creatinine 0.9 mg/dl (0.6-1.3) 01/26/23 20:49 Est Cr Clr Drug Dosing Not Reportable 01/26/23 20:42 Est GFR ( Amer) 105.2 ml/min 01/26/23 20:42 Est GFR (Non-Af Amer) 90.8 ml/min 01/26/23 20:42 BUN/Creatinine Ratio 11.4 (10-20) 01/26/23 20:42 Glucose 114 mg/dl (70-99(Fasting)) H 01/26/23 20:42 POC Glucose (other) 116 mg/dl (70-99) H 01/26/23 20:49 Calcium 9.1 mg/dl (8.6-10.3) 01/26/23 20:42 POC Ioniz Calcium Jeremie 1.19 mmol/l (1.12-1.32) 01/26/23 20:49 Phosphorus 2.0 mg/dl (2.5-4.9) L 01/26/23 20:42 Magnesium 2.0 mg/dl (1.7-2.4) 01/26/23 20:42 Total Bilirubin 0.4 mg/dl (0.2-1.0) 01/26/23 20:42 AST 40 U/L (13-39) H 01/26/23 20:42 ALT 22 U/L (7-52) 01/26/23 20:42 Alkaline Phosphatase 95 U/L (34-104) 01/26/23 20:42 Total Creatine Kinase 341 U/L (30-223) H 01/26/23 20:42 Troponin I High Sens 34.7 pg/ml (0-20) H 01/26/23 20:42 Total Protein 6.5 gm/dl (6.0-8.3) 01/26/23 20:42 Albumin 3.7 gm/dl (3.4-5.0) 01/26/23 20:42 Globulin 2.8 gm/dl (2.5-4.0) 01/26/23 20:42 Albumin/Globulin Ratio 1.3 (0.9-2) 01/26/23 20:42 TSH 0.171 uIu/ml (0.300-4.500) L 01/26/23 20:42 Free T4 1.17 ng/dl (0.61-1.60) 01/26/23 20:42 Urine Color Yellow 01/26/23 22: Urine Appearance Clear (Clear) 01/26/23 22: Urine pH 7.0 (4.5-7.5) 01/26/23 22: Ur Specific [place] 1.023 (1.000-1.030) 01/26/23 22: Urine Protein Negative (Negative) 01/26/23 22: Urine Glucose (UA) Negative (Negative) 01/26/23 22: Urine Ketones Negative (Negative) 01/26/23 22: Urine Blood Negative (Negative) 01/26/23 22: Urine Nitrite Negative (Negative) 01/26/23 22: Urine Bilirubin Negative (Negative) 01/26/23 22: Urine Urobilinogen Negative (Negative) 01/26/23 22:30 Ur Leukocyte Esterase Negative (Negative) 01/26/23 22: Urine Opiates Screen Neg (Neg) 01/26/23 22:30 Ur Methadone, Qual Neg (Neg) 01/26/23 22:30 Urine Barbiturates Neg (Neg) 01/26/23 22:30 Ur Phencyclidine (PCP) Neg (Neg) 01/26/23 22:30 U Amphetamin/Meth Scrn Neg (Neg) 01/26/23 22:30 MDMA (Ecstasy) Screen Neg (Neg) 01/26/23 22:30 U Benzodiazepines Scrn Neg (Neg) 01/26/23 22:30 Ur Cocaine Metabolite Pos (Neg) H 01/26/23 22:30 U Marijuana (THC) Screen Neg (Neg) 01/26/23 22:30 Ethyl Alcohol mg/dL < 10.0 mg/dl (<10.0) 01/26/23 20:42 SARS-CoV-2, RNA, NAAT NEGATIVE (NEGATIVE) 01/26/23 23:35 Impressions Chest X-Ray 01/26/23 19:17 XR chest 1V portable HISTORY: 63 years-old Male weakness acute weakness COMPARISON: 07/10/2022 TECHNIQUE: AP view of the chest FINDINGS: Cardiac silhouette is mildly enlarged. No pneumothorax, pleural effusion, airspace consolidation or pulmonary edema. Chronic appearing left-sided rib fractures with chronic right clavicular fracture. IMPRESSION: No acute process. ACT 112: Negative or not required by law. The above report was generated using voice recognition software. It may contain grammatical, syntax or spelling errors. Electronically signed by: Eliazar Gonzalez M.D. 01/26/2023 7:34 PM Abdomen/Pelvis CT 01/26/23 19:19 Exam(s): CT ABDOMEN + PELVIS With Contrast EXAM: CT Abdomen and Pelvis With Intravenous Contrast CLINICAL HISTORY: Reason for exam: AMS, fall, trauma. TECHNIQUE: Axial computed tomography images of the abdomen and pelvis with intravenous contrast. CTDI is 14.82 mGy and DLP is 720.58 mGy-cm. Automated exposure control was utilized for the study. A dose lowering technique was utilized adhering to the principles of ALARA. CONTRAST: Contrast must be dictated COMPARISON: No relevant prior studies available. FINDINGS: Lung bases: Unremarkable. No mass. No consolidation. ABDOMEN: Liver: Unremarkable. No mass. Gallbladder and bile ducts: Unremarkable. No calcified stones. No ductal dilation. Pancreas: Unremarkable. No mass. No ductal dilation. Spleen: Unremarkable. No splenomegaly. Adrenals: Unremarkable. No mass. Kidneys and ureters: Punctate nonobstructing right upper pole renal calculi measuring approximately 1-2 mm. Stomach and bowel: Diverticulosis, without acute diverticulitis. No small bowel obstruction. No free intraperitoneal air. PELVIS: Appendix: Normal appendix. Bladder: Unremarkable. No mass. Reproductive: Unremarkable as visualized. ABDOMEN and PELVIS: Intraperitoneal space: Unremarkable. No free air. No significant fluid collection. Bones/joints: Severe degenerative and postoperative changes of the lumbar spine. See the concomitant lumbar spine CT scan for further evaluation. Left sacroiliac joint arthrodesis. No acute fracture. No dislocation. Soft tissues: Unremarkable. Vasculature: Atherosclerotic changes of the aorta. No abdominal aortic aneurysm. Lymph nodes: Unremarkable. No enlarged lymph nodes. IMPRESSION: No acute findings in the abdomen or pelvis. Electronically signed by: Frank Da Silva MD 01/26/23 22:[address] 01/26/23 19:19 Exam(s): CT C SPINE EXAM: CT Cervical Spine Without Intravenous Contrast CLINICAL HISTORY: Reason for exam: AMS, fall, trauma. TECHNIQUE: Axial computed tomography images of the cervical spine without intravenous contrast. CTDI is 15.51 mGy and DLP is 450.24 mGy-cm. Automated exposure control was utilized for the study. A dose lowering technique was utilized adhering to the principles of ALARA. COMPARISON: No relevant prior studies available. FINDINGS: The vertebral body heights are maintained. There is no spondylolisthesis. The craniocervical junction is intact. The atlanto-dens interval is maintained. The dens is intact. Multilevel cervical spondylosis and degenerative disc disease. Straightening of the cervical lordosis. Multilevel foraminal stenosis. The unenhanced neck soft tissues are grossly unremarkable. The visualized lung apices are grossly clear. IMPRESSION: No cervical spine fracture. Electronically signed by: Frank Da Silva MD 01/26/23 22:[address] 01/26/23 19:19 Exam(s): CT CHEST With Contrast EXAM: CT Chest With Intravenous Contrast CLINICAL HISTORY: Reason for exam: AMS, fall, trauma. TECHNIQUE: Axial computed tomography images of the chest with intravenous contrast. CTDI is 13.91 mGy and DLP is 474.52 mGy-cm. Automated exposure control was utilized for the study. A dose lowering technique was utilized adhering to the principles of ALARA. CONTRAST: Contrast must be dictated COMPARISON: No relevant prior studies available. FINDINGS: Lungs: Unremarkable. No mass. No consolidation. Pleural space: Unremarkable. No significant effusion. No focal infiltrate, pulmonary contusion, or pneumothorax. Heart: Unremarkable. No cardiomegaly. No significant pericardial effusion. No significant coronary artery calcifications. Bones/joints: T3 superior endplate fracture, see the concomitant thoracic spine CT scan. Multiple old, healed, predominately nonunited left sided rib fractures. No dislocation. Soft tissues: Unremarkable. Vasculature: Unremarkable. No thoracic aortic aneurysm. Lymph nodes: Unremarkable. No enlarged lymph nodes. IMPRESSION: 1. No focal infiltrate, pulmonary contusion, or pneumothorax. 2. T3 superior endplate fracture, see the concomitant thoracic spine CT scan. 3. Multiple old, healed, predominately nonunited left sided rib fractures. Electronically signed by: Frank Da Silva MD 01/26/23 22:[address] 01/26/23 19:19 Exam(s): CT FACIAL Without Contrast EXAM: CT Maxillofacial Without Intravenous Contrast CLINICAL HISTORY: Reason for exam: AMS, fall, trauma. TECHNIQUE: Axial computed tomography images of the face without intravenous contrast. CTDI is 35.21 mGy and DLP is 537.48 mGy-cm. Automated exposure control was utilized for the study. A dose lowering technique was utilized adhering to the principles of ALARA. COMPARISON: No relevant prior studies available. FINDINGS: The mandible is intact. Intact maxillary alveolus. The orbital rims and floors are intact. The intraorbital contents are grossly unremarkable. Intact nasal bones, nasal septum, and maxillary spines. Mildly depressed left-sided zygomatic arch. Correlate for trauma to this location. Intact pterygoid processes. IMPRESSION: Mildly depressed left-sided zygomatic arch. Correlate for trauma to this location. Electronically signed by: Frank Da Silva MD 01/26/23 22:[address] 01/26/23 19:19 Exam(s): CT HEAD Without Contrast EXAM: CT Head Without Intravenous Contrast CLINICAL HISTORY: Reason for exam: AMS, fall, trauma. TECHNIQUE: Axial computed tomography images of the head/brain without intravenous contrast. CTDI is 35.21 mGy and DLP is 537.48 mGy-cm. Automated exposure control was utilized for the study. A dose lowering technique was utilized adhering to the principles of ALARA. COMPARISON: No relevant prior studies available. FINDINGS: No acute intracranial hemorrhage. No midline shift or mass effect. The territorial mcrae-white matter differentiation is maintained throughout. Age-related cerebral volume loss. Periventricular and subcortical white matter hypoattenuation, consistent with chronic microangiopathy. The visualized orbits appear grossly unremarkable. The calvarium is intact. The visualized paranasal sinuses and mastoid air cells are grossly clear. IMPRESSION: No acute intracranial hemorrhage, midline shift, or mass effect. Electronically signed by: Frank Da Silva MD 01/26/23 22:[address] 01/26/23 19:19 Exam(s): CT L SPINE With Contrast EXAM: CT Lumbar Spine With Intravenous Contrast CLINICAL HISTORY: Reason for exam: AMS, fall, trauma. TECHNIQUE: Axial computed tomography images of the lumbar spine with intravenous contrast. CTDI is 14.85 mGy and DLP is 720.58 mGy-cm. Automated exposure control was utilized for the study. A dose lowering technique was utilized adhering to the principles of ALARA. CONTRAST: Contrast must be dictated COMPARISON: Comparison made to prior lumbar spine MRI from July 12, 2022. FINDINGS: Vertebrae: Patient is status post posterior fusion of L2-S1 with transportation screws and connecting rods in place. There is a remote fracture of the L2 vertebral body with transpedicular screws extending through the nonunion fracture plane. There is diffuse osteopenia throughout the visualized bones. No acute fracture. There is fusion across the left SI joint with screws in place. Discs/spinal canal/neural foramina: There are interbody fusion device is in place at L2-3 and L4-5. There is solid interbody fusion at L5-S1. No acute findings. No spinal canal stenosis. Soft tissues: Right nephrolithiasis. IMPRESSION: No evidence of acute lumbar spine pathology. Electronically signed by: Ariela Hendricks MD 01/26/23 22:[address] 01/26/23 19:19 Exam(s): CT T SPINE EXAM: CT Thoracic Spine Without Intravenous Contrast CLINICAL HISTORY: Reason for exam: AMS, fall, trauma. TECHNIQUE: Axial computed tomography images of the thoracic spine without intravenous contrast. CTDI is 13.91 mGy and DLP is 474.52 mGy-cm. Automated exposure control was utilized for the study. A dose lowering technique was utilized adhering to the principles of ALARA. COMPARISON: No relevant prior studies available. FINDINGS: Acute fracture involving the superior endplate of T3. This is limited in evaluation due to large field of view and genitalia/osteoporosis. Thoracic spine MRI recommended. The thoracic kyphosis is preserved. There is no spondylolisthesis. The posterior elements are maintained, without evidence of acute fracture. The pedicles are intact. Multilevel thoracic spondylosis and degenerative disc disease. IMPRESSION: Acute fracture involving the superior endplate of T3. This is limited in evaluation due to large field of view and genitalia/osteoporosis. Thoracic spine MRI recommended. Electronically signed by: Frank Da Silva MD 01/26/23 22:18 PM ECG Additional Comments: EKG with sinus rhythm with sinus arrhythmia, rate=96, FT=782, CBC=175, QTc prolonged at 530. Left axis deviation and RBBB. Some TW abnormality PG Care Time/CCT Total # of Minutes Spent Total Time Spent with Patient: Total time spent is greater than 50% in coordination of care (as documented) at patient's floor/unit and/or counseling patient: Coding Level of Care Code 01852 INT INP/OBS CARE 2/55MIN Diagnoses Closed T3 fracture S22.039A Closed fracture of left zygomatic arch S02.40FA Encephalopathy G93.40
[2023-01-27] MEDS ORDERED: OLANZapine 10 MG/2.1 ML SDV IM STA (01:29)
[2023-01-27] MEDS ORDERED: OLANZapine 10 MG/2.1 ML SDV IM ONE (01:38)
[2023-01-27] MEDS ORDERED: ONDANSETRON INJ 2 MG/ML 2 ML VIAL IV PRN (02:06)
[2023-01-27] MEDS ORDERED: ACETAMINOPHEN 325 MG TAB PO PRN (02:06)
[2023-01-27] MEDS ORDERED: KETOROLAC TROMETHAMINE 10 MG TABLET PO PRN (02:06)
[2023-01-27] MEDS ORDERED: POTASSIUM PHOS 3 MMOL/1 ML INFUSION IV STA (02:06)
[2023-01-27] MEDS ORDERED: POTASSIUM PHOSPHATE 15 MMOL in SODIUM CHLORIDE 0.9% 250 ML IV ONE (02:30)
--- NOTE | 2023-01-27 08:08 | Hospitalist Progress Note ---
Date of Service January 27, 2023 Assessment & Plan (1) Closed T3 fracture: Plan: Dropped off to ER after a fall with sustained injury Imaging showed evidence for T3 superior endplate fracture w/o mention of retropulsed fragments. strenght intact b/l LE but w/ reported pain. Hx osteomyelitis/discitis of back w/ retained hardware and to be on chronic immunosuppresive therapy per ID note, levaquin to be continue and doxy stopped. Per patient, states he is on doxy twice daily and will continue for now. Added levaquin 250mg BID given recs UTD until CM able to assit w/ reaching out to Dr Rodney office in the morning to verify. CRP elevation when prior negative. To note, patient also w/ anemia which could cause some elevation in inflammatory markers (and as discussed w/ him last admission when he reported massive dosing NSAIDs/aleve that should avoid NSAIDs. Iron panel w/ iron low 15, trans % sat 5% worse than priors) however ferritin not significantly elevated as would suspect w/ ongoing infection MRI lumbar spine ordered, --Subtle acute appearing superior endplate compression deformity at T3 without retropulsion redemonstrated. -- Partially imaged lumbar spinal hardware. Subacute to chronic changes of discitis/osteomyelitis at L1-L2 are better seen on prior imaging of the lumbar spine. Checked ESR/CRP -- elevated at 37, 4.56 (prior CRP <0.5) Dr Clarke consulted WBC 12.8 --> 10.1k on repeat. Could consider checking blood cultures but have always been negative. Denied any recent fever/chills to me. Will monitor for now. Added back Levaquin as above for now until able to verify Fall precautions in place, 1:1 at bedside. Of note, was given dose IM zyprexa last evening for agitation/aggression. Will hold off further dosing. Is irritable at times (baseline from prior examinations on patient) but was answering questions and not aggressive. If needed further dosing would move to monitored bed given QTC borderline Pain control -- Tylenol, tramadol. will d/c toradol given anemia. Zanaflex added prn given prior effectiveness w/ spasm reported pain. check fecal occult w/ next BM. Ketorolac on home med list, would avoid use. Placed on protonix daily for GI prophylaxis Will order PT/OT consults (2) Closed fracture of left zygomatic arch: Plan: Mildly depressed left sided zygomatic arch fracture. CN intact on limited exam. Patient reports his vision is clear Pain control Monitor for any visual changes (3) Encephalopathy: Plan: Patient irritable but answering questions when he wants to . this is similar to prior experiences I've had with patient Hx polysubstance abuse Prior UDS + opiates, currently + COCAINE. Patient deferring questioning on such. Prior alochol abuse/use. Patient does have hx discitis/osteomyelitis of spine as well as psoas abscess, following w/ outpt ID -- will need f/u. Check procal Added levaquin as ?if to be on rather than doxy. Continue Doxy BID for now. PPI for GI proph. Suspect drug abuse related to fall prior to admission. Denies CP, trop minimally elevated . Can check EKG w/ CP CK mildly elevated 323, likely from fall/injury. IVF placed NS @ 80cc/hr for today for dehydration on examination. Could also be from his psaos abscess given hip pain reported however not worse on exam compared to priors Place on Q15 min checks (4) H/O: HTN (hypertension): Plan: Hx HTN. Hx vtach at [facility] in 2021 Last admit dc on metoprolol 50mg BID, lisinopril 20mg daily Ordered metoprolol 50mg BID for now, will monitor blood pressures/consider adding back JULIANNE if remaining elevated, but noting in setting of pain. EKG on admit notes septal infarct now present compared to Aug 2022 -- unclear w hen this occured, however given +cocaine testing suspect could have been induced by drug use vs other given extensive medical history/infections to spine/etc (5) Iron deficiency anemia: Plan: prior iron values low, suspected underyling PUD however denied pain to abdomen hgb stable compared to prior on NSAIDs for pain control at baseline and appeared had been sent on omeprazole from discharge last admission placed on protonix daily for GI proph, consider increasing to BID pending order placed for fecal occult blood w/ next BM will hold off IV venofer replacement for now -- was placed on oral supplementation last admission but does not appear was continued consider consultation for gi/outpt f/u if patient agreeable cbc reviewed and hgb improved from 9.6 on admission to 9.8 at present and will monitor d/c further toradol ordered for pain control and would avoid NSAIDs as able (6) Hypokalemia: (7) Fall: Plan: in ER, but suspected fall [employer] and was dropped off imaging as above EKG on admit notes septal infarct that wasn't previously noted. would not surprise me if he had an event over past several months given compliance issues/drug use/abuse Will discuss w/ supervising provider about possibly checking routine echo to assess for any wma, high susp for underlying CAD however without symptoms of chest pain, Dr Baez would like ot hold off ordering at this time and can be worked up as outpatient If any CP or symptoms of cardiac etiology low threshold to move to monitored bed/obtain imaging Admission and Anticipated Discharge Date Admission Date: January 26, 2023 Supervising Physician Co-Signing Physician Notes The patient was not seen by me. The chart was reviewed. Case discussed with NORBERT Cleaning. Agree with assessment and plan Subjective evaluated this morning, stating he's tired, wanting to rest. Right eye conjunctival hemorrhage, denies any change in vision. reporting back/shoulder/hip pain, all over. Discussed prior muscle relaxer which he would like. Discussed will order a dose of Zanaflex but would like to have repeat labs to order electrolyte replacement if needed given levels on admit. He is agreeable for time being. Hungry, would like some eggs and sausage. RN to call kitchen. Was taken to MRI, but unable to really lay flat/still and report pending. He reports he is on chronic antibiotics with doxy BID despite his ID note reporting to use Levaquin. Will need clarified on saturday w/ call to office to ensure this is accurate. He does report pain to his face as well. Denied drug use. Physical Exam Physical Exam: General: patient resting on his right side in bed, 1:1 at bedside, NAD but reports pain to his back/hips and right shoulder HEENT: periorbital edema/subconjunctival hemorrhage right eye, EOMI intact as much as able to participate in exam due to cooperativeness, ecchymosis to left zygomatic arch, tender to palpation Skin: scattered ecchymosis/bruising from fall, right shoulder, left face as above Resp:clear, no wheezing/rales, diminished in the bases, 95% on RA CV: regular rate, slightly tachycardic to low 100s, regular rhythm, no significant m/r/g or pitting edema, no calf tenderness GI: +BS, nontender MSK/Neuro: bruising to R shoulder, unwilling to participate in ROM examination. R clavicle appearing w/ bony step off (nontender) tenderness to palpation reported to entire spine/w/ any attempted movement of hips (declined eval) Psych: alert to person/place, slightly irritable with continued questions/examination and wanting to rest, wants something for pain Results & Data Results & Data Vital Signs (Past 12 Hours) Vital Signs Temp Pulse Pulse Pulse Resp BP BP 01/27/23 06:39 36.4 C L 91 H 20 160/86 H 01/27/23 00:30 82 20 01/27/23 00:00 84 01/26/23 23:30 88 24 165/99 H 01/26/23 23:26 86 20 01/26/23 23:00 88 24 01/27/23 01:28 01/26/23 21:14 90 18 193/104 H 01/26/23 21:39 84 18 184/131 H 01/26/23 20:40 88 Pulse Ox O2 Del Method 01/27/23 06:39 95 Room Air 01/27/23 00:30 97 01/27/23 00:00 98 01/26/23 23:30 98 01/26/23 23:26 95 01/26/23 23:00 97 01/27/23 01:28 Room Air 01/26/23 21:14 100 Room Air 01/26/23 21:39 97 Room Air 01/26/23 20:40 Laboratory Results 01/27/23 01/27/23 01/27/23 Range/Units 15:31 12:49 11:25 WBC (4.8-10.8) K/ul RBC (4.70-6.10) M/uL Hgb (14.0-18.0) g/dl POC Hgb (14.0-18.0) g/dl Hct (42.0-52.0) % POC Hct (42-52) % MCV (80.0-100.0) fL MCH (25.0-34.0) pg MCHC (32.0-36.0) g/dL RDW Std Deviation (36.4-46.3) fL RDW Coeff of Adele (11.5-14.5) % Plt Count (130-400) K/uL MPV (9.4-12.4) fL Immature Gran % (Auto) % Neut % (Auto) % Lymph % (Auto) % [place] % (Auto) % Eos % (Auto) % Baso % (Auto) % Neut # (Auto) (1.40-6.50) K/uL Lymph # (Auto) (1.2-3.4) K/uL [place] # (Auto) (0.11-0.59) K/uL Eos # (Auto) (0-0.50) K/uL Baso # (Auto) (0-0.2) K/uL Immature Gran # (Auto) (0.01-0.20) K/uL ESR 37 H (0-20) mm/hr PT (9.0-12.0) Seconds INR (0.9-1.1) POC Sodium (135-144) mmol/L Sodium (136-145) mmol/L POC Potassium (3.3-5.0) mmol/L Potassium (3.5-5.1) mmol/L POC Chloride (101-112) mmol/L Chloride (98-107) mmol/L Carbon Dioxide (21-32) mmol/L POC Total CO2 (24-31) mmol/L Anion Gap (3-11) POC Anion Gap (16-25) mmol/L POC BUN (7-18) mg/dl BUN (6-23) mg/dl Creatinine (0.6-1.4) mg/dl POC Creatinine (0.6-1.3) mg/dl Est Cr Clr Drug Dosing Est GFR ( Amer) ml/min Est GFR (Non-Af Amer) ml/min BUN/Creatinine Ratio (10-20) Glucose (70-99(Fasting)) mg/dl POC Glucose (other) (70-99) mg/dl Calcium (8.6-10.3) mg/dl POC Ioniz Calcium Jeremie (1.12-1.32) mmol/l Phosphorus (2.5-4.9) mg/dl Magnesium 1.9 (1.7-2.4) mg/dl Iron (35-175) mcg/dl TIBC (250-450) mcg/dl Unsaturated IBC (155-355) mcg/dl Transferrin % Sat (20-50) % Ferritin (8-388) ng/ml Total Bilirubin (0.2-1.0) mg/dl Direct Bilirubin (0-0.2) mg/dl AST (13-39) U/L ALT (7-52) U/L Alkaline Phosphatase (34-104) U/L Total Creatine Kinase (30-223) U/L Troponin I High Sens (0-20) pg/ml C-Reactive Protein (0-0.5) mg/dl Total Protein (6.0-8.3) gm/dl Albumin (3.4-5.0) gm/dl Globulin (2.5-4.0) gm/dl Albumin/Globulin Ratio (0.9-2) TSH (0.300-4.500) uIu/ml Free T4 (0.61-1.60) ng/dl Free T3 Pending Urine Color Urine Appearance (Clear) Urine pH (4.5-7.5) Ur Specific [place] (1.000-1.030) Urine Protein (Negative) Urine Glucose (UA) (Negative) Urine Ketones (Negative) Urine Blood (Negative) Urine Nitrite (Negative) Urine Bilirubin (Negative) Urine Urobilinogen (Negative) Ur Leukocyte Esterase (Negative) Urine Opiates Screen (Neg) Ur Methadone, Qual (Neg) Urine Barbiturates (Neg) Ur Phencyclidine (PCP) (Neg) U Amphetamin/Meth Scrn (Neg) MDMA (Ecstasy) Screen (Neg) U Benzodiazepines Scrn (Neg) U Cocaine Confirm GC/MS Ur Cocaine Metabolite (Neg) U Marijuana (THC) Screen (Neg) Drug Screen Comment Ethyl Alcohol mg/dL (<10.0) mg/dl SARS-CoV-2, RNA, NAAT (NEGATIVE) 01/27/23 01/27/23 01/27/23 Range/Units 11:25 11:25 11:25 WBC 10.13 (4.8-10.8) K/ul RBC 3.67 L (4.70-6.10) M/uL Hgb 9.8 L (14.0-18.0) g/dl POC Hgb (14.0-18.0) g/dl Hct 29.5 L (42.0-52.0) % POC Hct (42-52) % MCV 80.4 (80.0-100.0) fL MCH 26.7 (25.0-34.0) pg MCHC 33.2 (32.0-36.0) g/dL RDW Std Deviation 42.9 (36.4-46.3) fL RDW Coeff of Adele 14.8 H (11.5-14.5) % Plt Count 382 (130-400) K/uL MPV 8.8 L (9.4-12.4) fL Immature Gran % (Auto) % Neut % (Auto) % Lymph % (Auto) % [place] % (Auto) % Eos % (Auto) % Baso % (Auto) % Neut # (Auto) (1.40-6.50) K/uL Lymph # (Auto) (1.2-3.4) K/uL [place] # (Auto) (0.11-0.59) K/uL Eos # (Auto) (0-0.50) K/uL Baso # (Auto) (0-0.2) K/uL Immature Gran # (Auto) (0.01-0.20) K/uL ESR (0-20) mm/hr PT (9.0-12.0) Seconds INR (0.9-1.1) POC Sodium (135-144) mmol/L Sodium 138 (136-145) mmol/L POC Potassium (3.3-5.0) mmol/L Potassium 3.3 L (3.5-5.1) mmol/L POC Chloride (101-112) mmol/L Chloride 106 (98-107) mmol/L Carbon Dioxide 26 (21-32) mmol/L POC Total CO2 (24-31) mmol/L Anion Gap 6 (3-11) POC Anion Gap (16-25) mmol/L POC BUN (7-18) mg/dl BUN 7 (6-23) mg/dl Creatinine 0.76 (0.6-1.4) mg/dl POC Creatinine (0.6-1.3) mg/dl Est Cr Clr Drug Dosing Not Reportable Est GFR ( Amer) 111.7 ml/min Est GFR (Non-Af Amer) 96.4 ml/min BUN/Creatinine Ratio 9.2 L (10-20) Glucose 171 H (70-99(Fasting)) mg/dl POC Glucose (other) (70-99) mg/dl Calcium 8.9 (8.6-10.3) mg/dl POC Ioniz Calcium Jeremie (1.12-1.32) mmol/l Phosphorus 2.7 (2.5-4.9) mg/dl Magnesium (1.7-2.4) mg/dl Iron 15 L (35-175) mcg/dl TIBC 304 (250-450) mcg/dl Unsaturated IBC 289 (155-355) mcg/dl Transferrin % Sat 5 L (20-50) % Ferritin 65.2 (8-388) ng/ml Total Bilirubin 0.4 (0.2-1.0) mg/dl Direct Bilirubin 0.0 (0-0.2) mg/dl AST 33 (13-39) U/L ALT 21 (7-52) U/L Alkaline Phosphatase 84 (34-104) U/L Total Creatine Kinase 323 H (30-223) U/L Troponin I High Sens 38.6 H (0-20) pg/ml C-Reactive Protein 4.56 H (0-0.5) mg/dl Total Protein 6.1 (6.0-8.3) gm/dl Albumin 3.5 (3.4-5.0) gm/dl Globulin (2.5-4.0) gm/dl Albumin/Globulin Ratio (0.9-2) TSH (0.300-4.500) uIu/ml Free T4 (0.61-1.60) ng/dl Free T3 Urine Color Urine Appearance (Clear) Urine pH (4.5-7.5) Ur Specific [place] (1.000-1.030) Urine Protein (Negative) Urine Glucose (UA) (Negative) Urine Ketones (Negative) Urine Blood (Negative) Urine Nitrite (Negative) Urine Bilirubin (Negative) Urine Urobilinogen (Negative) Ur Leukocyte Esterase (Negative) Urine Opiates Screen (Neg) Ur Methadone, Qual (Neg) Urine Barbiturates (Neg) Ur Phencyclidine (PCP) (Neg) U Amphetamin/Meth Scrn (Neg) MDMA (Ecstasy) Screen (Neg) U Benzodiazepines Scrn (Neg) U Cocaine Confirm GC/MS Ur Cocaine Metabolite (Neg) U Marijuana (THC) Screen (Neg) Drug Screen Comment Ethyl Alcohol mg/dL (<10.0) mg/dl SARS-CoV-2, RNA, NAAT (NEGATIVE) 01/26/23 01/26/23 01/26/23 Range/Units 23:35 22:30 22:30 WBC (4.8-10.8) K/ul RBC (4.70-6.10) M/uL Hgb (14.0-18.0) g/dl POC Hgb (14.0-18.0) g/dl Hct (42.0-52.0) % POC Hct (42-52) % MCV (80.0-100.0) fL MCH (25.0-34.0) pg MCHC (32.0-36.0) g/dL RDW Std Deviation (36.4-46.3) fL RDW Coeff of Adele (11.5-14.5) % Plt Count (130-400) K/uL MPV (9.4-12.4) fL Immature Gran % (Auto) % Neut % (Auto) % Lymph % (Auto) % [place] % (Auto) % Eos % (Auto) % Baso % (Auto) % Neut # (Auto) (1.40-6.50) K/uL Lymph # (Auto) (1.2-3.4) K/uL [place] # (Auto) (0.11-0.59) K/uL Eos # (Auto) (0-0.50) K/uL Baso # (Auto) (0-0.2) K/uL Immature Gran # (Auto) (0.01-0.20) K/uL ESR (0-20) mm/hr PT (9.0-12.0) Seconds INR (0.9-1.1) POC Sodium (135-144) mmol/L Sodium (136-145) mmol/L POC Potassium (3.3-5.0) mmol/L Potassium (3.5-5.1) mmol/L POC Chloride (101-112) mmol/L Chloride (98-107) mmol/L Carbon Dioxide (21-32) mmol/L POC Total CO2 (24-31) mmol/L Anion Gap (3-11) POC Anion Gap (16-25) mmol/L POC BUN (7-18) mg/dl BUN (6-23) mg/dl Creatinine (0.6-1.4) mg/dl POC Creatinine (0.6-1.3) mg/dl Est Cr Clr Drug Dosing Est GFR ( Amer) ml/min Est GFR (Non-Af Amer) ml/min BUN/Creatinine Ratio (10-20) Glucose (70-99(Fasting)) mg/dl POC Glucose (other) (70-99) mg/dl Calcium (8.6-10.3) mg/dl POC Ioniz Calcium Jeremie (1.12-1.32) mmol/l Phosphorus (2.5-4.9) mg/dl Magnesium (1.7-2.4) mg/dl Iron (35-175) mcg/dl TIBC (250-450) mcg/dl Unsaturated IBC (155-355) mcg/dl Transferrin % Sat (20-50) % Ferritin (8-388) ng/ml Total Bilirubin (0.2-1.0) mg/dl Direct Bilirubin (0-0.2) mg/dl AST (13-39) U/L ALT (7-52) U/L Alkaline Phosphatase (34-104) U/L Total Creatine Kinase (30-223) U/L Troponin I High Sens (0-20) pg/ml C-Reactive Protein (0-0.5) mg/dl Total Protein (6.0-8.3) gm/dl Albumin (3.4-5.0) gm/dl Globulin (2.5-4.0) gm/dl Albumin/Globulin Ratio (0.9-2) TSH (0.300-4.500) uIu/ml Free T4 (0.61-1.60) ng/dl Free T3 Urine Color Urine Appearance (Clear) Urine pH (4.5-7.5) Ur Specific [place] (1.000-1.030) Urine Protein (Negative) Urine Glucose (UA) (Negative) Urine Ketones (Negative) Urine Blood (Negative) Urine Nitrite (Negative) Urine Bilirubin (Negative) Urine Urobilinogen (Negative) Ur Leukocyte Esterase (Negative) Urine Opiates Screen Neg (Neg) Ur Methadone, Qual Neg (Neg) Urine Barbiturates Neg (Neg) Ur Phencyclidine (PCP) Neg (Neg) U Amphetamin/Meth Scrn Neg (Neg) MDMA (Ecstasy) Screen Neg (Neg) U Benzodiazepines Scrn Neg (Neg) U Cocaine Confirm GC/MS Pending Ur Cocaine Metabolite Pos H (Neg) U Marijuana (THC) Screen Neg (Neg) Drug Screen Comment Pending Ethyl Alcohol mg/dL (<10.0) mg/dl SARS-CoV-2, RNA, NAAT NEGATIVE (NEGATIVE) 01/26/23 01/26/23 01/26/23 Range/Units 22:30 20:49 20:42 WBC (4.8-10.8) K/ul RBC (4.70-6.10) M/uL Hgb (14.0-18.0) g/dl POC Hgb 10.5 L (14.0-18.0) g/dl Hct (42.0-52.0) % POC Hct 31 L (42-52) % MCV (80.0-100.0) fL MCH (25.0-34.0) pg MCHC (32.0-36.0) g/dL RDW Std Deviation (36.4-46.3) fL RDW Coeff of Adele (11.5-14.5) % Plt Count (130-400) K/uL MPV (9.4-12.4) fL Immature Gran % (Auto) % Neut % (Auto) % Lymph % (Auto) % [place] % (Auto) % Eos % (Auto) % Baso % (Auto) % Neut # (Auto) (1.40-6.50) K/uL Lymph # (Auto) (1.2-3.4) K/uL [place] # (Auto) (0.11-0.59) K/uL Eos # (Auto) (0-0.50) K/uL Baso # (Auto) (0-0.2) K/uL Immature Gran # (Auto) (0.01-0.20) K/uL ESR (0-20) mm/hr PT (9.0-12.0) Seconds INR (0.9-1.1) POC Sodium 136 (135-144) mmol/L Sodium (136-145) mmol/L POC Potassium 3.1 L (3.3-5.0) mmol/L Potassium (3.5-5.1) mmol/L POC Chloride 101 (101-112) mmol/L Chloride (98-107) mmol/L Carbon Dioxide (21-32) mmol/L POC Total CO2 25 (24-31) mmol/L Anion Gap (3-11) POC Anion Gap 14.0 L (16-25) mmol/L POC BUN 9 (7-18) mg/dl BUN (6-23) mg/dl Creatinine (0.6-1.4) mg/dl POC Creatinine 0.9 (0.6-1.3) mg/dl Est Cr Clr Drug Dosing Est GFR ( Amer) ml/min Est GFR (Non-Af Amer) ml/min BUN/Creatinine Ratio (10-20) Glucose (70-99(Fasting)) mg/dl POC Glucose (other) 116 H (70-99) mg/dl Calcium (8.6-10.3) mg/dl POC Ioniz Calcium Jeremie 1.19 (1.12-1.32) mmol/l Phosphorus (2.5-4.9) mg/dl Magnesium (1.7-2.4) mg/dl Iron (35-175) mcg/dl TIBC (250-450) mcg/dl Unsaturated IBC (155-355) mcg/dl Transferrin % Sat (20-50) % Ferritin (8-388) ng/ml Total Bilirubin (0.2-1.0) mg/dl Direct Bilirubin (0-0.2) mg/dl AST (13-39) U/L ALT (7-52) U/L Alkaline Phosphatase (34-104) U/L Total Creatine Kinase (30-223) U/L Troponin I High Sens (0-20) pg/ml C-Reactive Protein (0-0.5) mg/dl Total Protein (6.0-8.3) gm/dl Albumin (3.4-5.0) gm/dl Globulin (2.5-4.0) gm/dl Albumin/Globulin Ratio (0.9-2) TSH 0.171 L (0.300-4.500) uIu/ml Free T4 1.17 (0.61-1.60) ng/dl Free T3 Urine Color Yellow Urine Appearance Clear (Clear) Urine pH 7.0 (4.5-7.5) Ur Specific [place] 1.023 (1.000-1.030) Urine Protein Negative (Negative) Urine Glucose (UA) Negative (Negative) Urine Ketones Negative (Negative) Urine Blood Negative (Negative) Urine Nitrite Negative (Negative) Urine Bilirubin Negative (Negative) Urine Urobilinogen Negative (Negative) Ur Leukocyte Esterase Negative (Negative) Urine Opiates Screen (Neg) Ur Methadone, Qual (Neg) Urine Barbiturates (Neg) Ur Phencyclidine (PCP) (Neg) U Amphetamin/Meth Scrn (Neg) MDMA (Ecstasy) Screen (Neg) U Benzodiazepines Scrn (Neg) U Cocaine Confirm GC/MS Ur Cocaine Metabolite (Neg) U Marijuana (THC) Screen (Neg) Drug Screen Comment Ethyl Alcohol mg/dL (<10.0) mg/dl SARS-CoV-2, RNA, NAAT (NEGATIVE) 01/26/23 01/26/23 01/26/23 Range/Units 20:42 20:42 20:42 WBC 12.89 H (4.8-10.8) K/ul RBC 3.61 L (4.70-6.10) M/uL Hgb 9.6 L (14.0-18.0) g/dl POC Hgb (14.0-18.0) g/dl Hct 29.4 L (42.0-52.0) % POC Hct (42-52) % MCV 81.4 (80.0-100.0) fL MCH 26.6 (25.0-34.0) pg MCHC 32.7 (32.0-36.0) g/dL RDW Std Deviation 43.6 (36.4-46.3) fL RDW Coeff of Adele 14.8 H (11.5-14.5) % Plt Count 405 H (130-400) K/uL MPV 9.0 L (9.4-12.4) fL Immature Gran % (Auto) 0.5 % Neut % (Auto) 80.0 % Lymph % (Auto) 11.4 % [place] % (Auto) 6.7 % Eos % (Auto) 1.2 % Baso % (Auto) 0.2 % Neut # (Auto) 10.32 H (1.40-6.50) K/uL Lymph # (Auto) 1.47 (1.2-3.4) K/uL [place] # (Auto) 0.86 H (0.11-0.59) K/uL Eos # (Auto) 0.15 (0-0.50) K/uL Baso # (Auto) 0.03 (0-0.2) K/uL Immature Gran # (Auto) 0.06 (0.01-0.20) K/uL ESR (0-20) mm/hr PT (9.0-12.0) Seconds INR (0.9-1.1) POC Sodium (135-144) mmol/L Sodium 137 (136-145) mmol/L POC Potassium (3.3-5.0) mmol/L Potassium 3.2 L (3.5-5.1) mmol/L POC Chloride (101-112) mmol/L Chloride 106 (98-107) mmol/L Carbon Dioxide 26 (21-32) mmol/L POC Total CO2 (24-31) mmol/L Anion Gap 5 (3-11) POC Anion Gap (16-25) mmol/L POC BUN (7-18) mg/dl BUN 10 (6-23) mg/dl Creatinine 0.88 (0.6-1.4) mg/dl POC Creatinine (0.6-1.3) mg/dl Est Cr Clr Drug Dosing Not Reportable Est GFR ( Amer) 105.2 ml/min Est GFR (Non-Af Amer) 90.8 ml/min BUN/Creatinine Ratio 11.4 (10-20) Glucose 114 H (70-99(Fasting)) mg/dl POC Glucose (other) (70-99) mg/dl Calcium 9.1 (8.6-10.3) mg/dl POC Ioniz Calcium Jeremie (1.12-1.32) mmol/l Phosphorus 2.0 L (2.5-4.9) mg/dl Magnesium 2.0 (1.7-2.4) mg/dl Iron (35-175) mcg/dl TIBC (250-450) mcg/dl Unsaturated IBC (155-355) mcg/dl Transferrin % Sat (20-50) % Ferritin (8-388) ng/ml Total Bilirubin 0.4 (0.2-1.0) mg/dl Direct Bilirubin (0-0.2) mg/dl AST 40 H (13-39) U/L ALT 22 (7-52) U/L Alkaline Phosphatase 95 (34-104) U/L Total Creatine Kinase 341 H (30-223) U/L Troponin I High Sens 34.7 H (0-20) pg/ml C-Reactive Protein (0-0.5) mg/dl Total Protein 6.5 (6.0-8.3) gm/dl Albumin 3.7 (3.4-5.0) gm/dl Globulin 2.8 (2.5-4.0) gm/dl Albumin/Globulin Ratio 1.3 (0.9-2) TSH (0.300-4.500) uIu/ml Free T4 (0.61-1.60) ng/dl Free T3 Urine Color Urine Appearance (Clear) Urine pH (4.5-7.5) Ur Specific [place] (1.000-1.030) Urine Protein (Negative) Urine Glucose (UA) (Negative) Urine Ketones (Negative) Urine Blood (Negative) Urine Nitrite (Negative) Urine Bilirubin (Negative) Urine Urobilinogen (Negative) Ur Leukocyte Esterase (Negative) Urine Opiates Screen (Neg) Ur Methadone, Qual (Neg) Urine Barbiturates (Neg) Ur Phencyclidine (PCP) (Neg) U Amphetamin/Meth Scrn (Neg) MDMA (Ecstasy) Screen (Neg) U Benzodiazepines Scrn (Neg) U Cocaine Confirm GC/MS Ur Cocaine Metabolite (Neg) U Marijuana (THC) Screen (Neg) Drug Screen Comment Ethyl Alcohol mg/dL < 10.0 (<10.0) mg/dl SARS-CoV-2, RNA, NAAT (NEGATIVE) 01/26/23 Range/Units 20:42 WBC (4.8-10.8) K/ul RBC (4.70-6.10) M/uL Hgb (14.0-18.0) g/dl POC Hgb (14.0-18.0) g/dl Hct (42.0-52.0) % POC Hct (42-52) % MCV (80.0-100.0) fL MCH (25.0-34.0) pg MCHC (32.0-36.0) g/dL RDW Std Deviation (36.4-46.3) fL RDW Coeff of Adele (11.5-14.5) % Plt Count (130-400) K/uL MPV (9.4-12.4) fL Immature Gran % (Auto) % Neut % (Auto) % Lymph % (Auto) % [place] % (Auto) % Eos % (Auto) % Baso % (Auto) % Neut # (Auto) (1.40-6.50) K/uL Lymph # (Auto) (1.2-3.4) K/uL [place] # (Auto) (0.11-0.59) K/uL Eos # (Auto) (0-0.50) K/uL Baso # (Auto) (0-0.2) K/uL Immature Gran # (Auto) (0.01-0.20) K/uL ESR (0-20) mm/hr PT 11.8 (9.0-12.0) Seconds INR 1.1 (0.9-1.1) POC Sodium (135-144) mmol/L Sodium (136-145) mmol/L POC Potassium (3.3-5.0) mmol/L Potassium (3.5-5.1) mmol/L POC Chloride (101-112) mmol/L Chloride (98-107) mmol/L Carbon Dioxide (21-32) mmol/L POC Total CO2 (24-31) mmol/L Anion Gap (3-11) POC Anion Gap (16-25) mmol/L POC BUN (7-18) mg/dl BUN (6-23) mg/dl Creatinine (0.6-1.4) mg/dl POC Creatinine (0.6-1.3) mg/dl Est Cr Clr Drug Dosing Est GFR ( Amer) ml/min Est GFR (Non-Af Amer) ml/min BUN/Creatinine Ratio (10-20) Glucose (70-99(Fasting)) mg/dl POC Glucose (other) (70-99) mg/dl Calcium (8.6-10.3) mg/dl POC Ioniz Calcium Jeremie (1.12-1.32) mmol/l Phosphorus (2.5-4.9) mg/dl Magnesium (1.7-2.4) mg/dl Iron (35-175) mcg/dl TIBC (250-450) mcg/dl Unsaturated IBC (155-355) mcg/dl Transferrin % Sat (20-50) % Ferritin (8-388) ng/ml Total Bilirubin (0.2-1.0) mg/dl Direct Bilirubin (0-0.2) mg/dl AST (13-39) U/L ALT (7-52) U/L Alkaline Phosphatase (34-104) U/L Total Creatine Kinase (30-223) U/L Troponin I High Sens (0-20) pg/ml C-Reactive Protein (0-0.5) mg/dl Total Protein (6.0-8.3) gm/dl Albumin (3.4-5.0) gm/dl Globulin (2.5-4.0) gm/dl Albumin/Globulin Ratio (0.9-2) TSH (0.300-4.500) uIu/ml Free T4 (0.61-1.60) ng/dl Free T3 Urine Color Urine Appearance (Clear) Urine pH (4.5-7.5) Ur Specific [place] (1.000-1.030) Urine Protein (Negative) Urine Glucose (UA) (Negative) Urine Ketones (Negative) Urine Blood (Negative) Urine Nitrite (Negative) Urine Bilirubin (Negative) Urine Urobilinogen (Negative) Ur Leukocyte Esterase (Negative) Urine Opiates Screen (Neg) Ur Methadone, Qual (Neg) Urine Barbiturates (Neg) Ur Phencyclidine (PCP) (Neg) U Amphetamin/Meth Scrn (Neg) MDMA (Ecstasy) Screen (Neg) U Benzodiazepines Scrn (Neg) U Cocaine Confirm GC/MS Ur Cocaine Metabolite (Neg) U Marijuana (THC) Screen (Neg) Drug Screen Comment Ethyl Alcohol mg/dL (<10.0) mg/dl SARS-CoV-2, RNA, NAAT (NEGATIVE) Diagnostic Findings Chest X-Ray 01/26/23 19:17 XR chest 1V portable HISTORY: 63 years-old Male weakness acute weakness COMPARISON: 07/10/2022 TECHNIQUE: AP view of the chest FINDINGS: Cardiac silhouette is mildly enlarged. No pneumothorax, pleural effusion, airspace consolidation or pulmonary edema. Chronic appearing left-sided rib fractures with chronic right clavicular fracture. IMPRESSION: No acute process. ACT 112: Negative or not required by law. The above report was generated using voice recognition software. It may contain grammatical, syntax or spelling errors. Electronically signed by: Eliazar Gonzalez M.D. 01/26/2023 7:34 PM Abdomen/Pelvis CT 01/26/23 19:19 Exam(s): CT ABDOMEN + PELVIS With Contrast EXAM: CT Abdomen and Pelvis With Intravenous Contrast CLINICAL HISTORY: Reason for exam: AMS, fall, trauma. TECHNIQUE: Axial computed tomography images of the abdomen and pelvis with intravenous contrast. CTDI is 14.82 mGy and DLP is 720.58 mGy-cm. Automated exposure control was utilized for the study. A dose lowering technique was utilized adhering to the principles of ALARA. CONTRAST: Contrast must be dictated COMPARISON: No relevant prior studies available. FINDINGS: Lung bases: Unremarkable. No mass. No consolidation. ABDOMEN: Liver: Unremarkable. No mass. Gallbladder and bile ducts: Unremarkable. No calcified stones. No ductal dilation. Pancreas: Unremarkable. No mass. No ductal dilation. Spleen: Unremarkable. No splenomegaly. Adrenals: Unremarkable. No mass. Kidneys and ureters: Punctate nonobstructing right upper pole renal calculi measuring approximately 1-2 mm. Stomach and bowel: Diverticulosis, without acute diverticulitis. No small bowel obstruction. No free intraperitoneal air. PELVIS: Appendix: Normal appendix. Bladder: Unremarkable. No mass. Reproductive: Unremarkable as visualized. ABDOMEN and PELVIS: Intraperitoneal space: Unremarkable. No free air. No significant fluid collection. Bones/joints: Severe degenerative and postoperative changes of the lumbar spine. See the concomitant lumbar spine CT scan for further evaluation. Left sacroiliac joint arthrodesis. No acute fracture. No dislocation. Soft tissues: Unremarkable. Vasculature: Atherosclerotic changes of the aorta. No abdominal aortic aneurysm. Lymph nodes: Unremarkable. No enlarged lymph nodes. IMPRESSION: No acute findings in the abdomen or pelvis. Electronically signed by: Frank Da Silva MD 01/26/23 22:[address] 01/26/23 19:19 Exam(s): CT C SPINE EXAM: CT Cervical Spine Without Intravenous Contrast CLINICAL HISTORY: Reason for exam: AMS, fall, trauma. TECHNIQUE: Axial computed tomography images of the cervical spine without intravenous contrast. CTDI is 15.51 mGy and DLP is 450.24 mGy-cm. Automated exposure control was utilized for the study. A dose lowering technique was utilized adhering to the principles of ALARA. COMPARISON: No relevant prior studies available. FINDINGS: The vertebral body heights are maintained. There is no spondylolisthesis. The craniocervical junction is intact. The atlanto-dens interval is maintained. The dens is intact. Multilevel cervical spondylosis and degenerative disc disease. Straightening of the cervical lordosis. Multilevel foraminal stenosis. The unenhanced neck soft tissues are grossly unremarkable. The visualized lung apices are grossly clear. IMPRESSION: No cervical spine fracture. Electronically signed by: Frank Da Silva MD 01/26/23 22:[address] 01/26/23 19:19 Exam(s): CT CHEST With Contrast EXAM: CT Chest With Intravenous Contrast CLINICAL HISTORY: Reason for exam: AMS, fall, trauma. TECHNIQUE: Axial computed tomography images of the chest with intravenous contrast. CTDI is 13.91 mGy and DLP is 474.52 mGy-cm. Automated exposure control was utilized for the study. A dose lowering technique was utilized adhering to the principles of ALARA. CONTRAST: Contrast must be dictated COMPARISON: No relevant prior studies available. FINDINGS: Lungs: Unremarkable. No mass. No consolidation. Pleural space: Unremarkable. No significant effusion. No focal infiltrate, pulmonary contusion, or pneumothorax. Heart: Unremarkable. No cardiomegaly. No significant pericardial effusion. No significant coronary artery calcifications. Bones/joints: T3 superior endplate fracture, see the concomitant thoracic spine CT scan. Multiple old, healed, predominately nonunited left sided rib fractures. No dislocation. Soft tissues: Unremarkable. Vasculature: Unremarkable. No thoracic aortic aneurysm. Lymph nodes: Unremarkable. No enlarged lymph nodes. IMPRESSION: 1. No focal infiltrate, pulmonary contusion, or pneumothorax. 2. T3 superior endplate fracture, see the concomitant thoracic spine CT scan. 3. Multiple old, healed, predominately nonunited left sided rib fractures. Electronically signed by: Frank Da Silva MD 01/26/23 22:[address] 01/26/23 19:19 Exam(s): CT FACIAL Without Contrast EXAM: CT Maxillofacial Without Intravenous Contrast CLINICAL HISTORY: Reason for exam: AMS, fall, trauma. TECHNIQUE: Axial computed tomography images of the face without intravenous contrast. CTDI is 35.21 mGy and DLP is 537.48 mGy-cm. Automated exposure control was utilized for the study. A dose lowering technique was utilized adhering to the principles of ALARA. COMPARISON: No relevant prior studies available. FINDINGS: The mandible is intact. Intact maxillary alveolus. The orbital rims and floors are intact. The intraorbital contents are grossly unremarkable. Intact nasal bones, nasal septum, and maxillary spines. Mildly depressed left-sided zygomatic arch. Correlate for trauma to this location. Intact pterygoid processes. IMPRESSION: Mildly depressed left-sided zygomatic arch. Correlate for trauma to this location. Electronically signed by: Frank Da Silva MD 01/26/23 22:[address] 01/26/23 19:19 Exam(s): CT HEAD Without Contrast EXAM: CT Head Without Intravenous Contrast CLINICAL HISTORY: Reason for exam: AMS, fall, trauma. TECHNIQUE: Axial computed tomography images of the head/brain without intravenous contrast. CTDI is 35.21 mGy and DLP is 537.48 mGy-cm. Automated exposure control was utilized for the study. A dose lowering technique was utilized adhering to the principles of ALARA. COMPARISON: No relevant prior studies available. FINDINGS: No acute intracranial hemorrhage. No midline shift or mass effect. The territorial mcrae-white matter differentiation is maintained throughout. Age-related cerebral volume loss. Periventricular and subcortical white matter hypoattenuation, consistent with chronic microangiopathy. The visualized orbits appear grossly unremarkable. The calvarium is intact. The visualized paranasal sinuses and mastoid air cells are grossly clear. IMPRESSION: No acute intracranial hemorrhage, midline shift, or mass effect. Electronically signed by: Frank Da Silva MD 01/26/23 22:[address] 01/26/23 19:19 Exam(s): CT L SPINE With Contrast EXAM: CT Lumbar Spine With Intravenous Contrast CLINICAL HISTORY: Reason for exam: AMS, fall, trauma. TECHNIQUE: Axial computed tomography images of the lumbar spine with intravenous contrast. CTDI is 14.85 mGy and DLP is 720.58 mGy-cm. Automated exposure control was utilized for the study. A dose lowering technique was utilized adhering to the principles of ALARA. CONTRAST: Contrast must be dictated COMPARISON: Comparison made to prior lumbar spine MRI from July 12, 2022. FINDINGS: Vertebrae: Patient is status post posterior fusion of L2-S1 with transportation screws and connecting rods in place. There is a remote fracture of the L2 vertebral body with transpedicular screws extending through the nonunion fracture plane. There is diffuse osteopenia throughout the visualized bones. No acute fracture. There is fusion across the left SI joint with screws in place. Discs/spinal canal/neural foramina: There are interbody fusion device is in place at L2-3 and L4-5. There is solid interbody fusion at L5-S1. No acute findings. No spinal canal stenosis. Soft tissues: Right nephrolithiasis. IMPRESSION: No evidence of acute lumbar spine pathology. Electronically signed by: Ariela Hendricks MD 01/26/23 22:[address] 01/26/23 19:19 Exam(s): CT T SPINE EXAM: CT Thoracic Spine Without Intravenous Contrast CLINICAL HISTORY: Reason for exam: AMS, fall, trauma. TECHNIQUE: Axial computed tomography images of the thoracic spine without intravenous contrast. CTDI is 13.91 mGy and DLP is 474.52 mGy-cm. Automated exposure control was utilized for the study. A dose lowering technique was utilized adhering to the principles of ALARA. COMPARISON: No relevant prior studies available. FINDINGS: Acute fracture involving the superior endplate of T3. This is limited in evaluation due to large field of view and genitalia/osteoporosis. Thoracic spine MRI recommended. The thoracic kyphosis is preserved. There is no spondylolisthesis. The posterior elements are maintained, without evidence of acute fracture. The pedicles are intact. Multilevel thoracic spondylosis and degenerative disc disease. IMPRESSION: Acute fracture involving the superior endplate of T3. This is limited in evaluation due to large field of view and genitalia/osteoporosis. Thoracic spine MRI recommended. Electronically signed by: Frank Da Silva MD 01/26/23 22:18 PM Thoracic Spine MRI 01/27/23 02:06 MR thoracic spine wo con HISTORY: [address] years-old Male CT with acute fracture superior T3 endplate acute mid back pain status post fall. Known discitis/osteomyelitis at L1-L2. COMPARISON: CT thoracolumbar spine studies January 26, 2023, MRI lumbar spine 07/26/2022, CT abdomen and pelvis 05/31/2022 TECHNIQUE: Multi planar multisequence MRI of the thoracic spine was obtained without the use of IV contrast. FINDINGS: Limited study secondary to extensive motion artifact. The exam was prematurely terminated secondary to patient unable to complete the study secondary to pain and discomfort. No sagittal STIR images were obtained. Posterior interbody aviva and screw fusion hardware of the lumbar spine again noted. The erosive process at L1-L2 with the severe L1 burst fracture is better appreciated on the comparison CT lumbar spine. Mild acute appearing superior endplate compression deformity at T3 without significant vertebral body height loss or retropulsion. Mild to moderate multilevel intervertebral disc space narrowing with spondylitic spurring and small posterior annular disc bulging, most pronounced at T7-T8 where there is mild central canal stenosis with moderate left-sided neural foraminal narrowing. Additional at least moderate bilateral foraminal stenosis at T8-T9 with mild central canal stenosis. IMPRESSION: 1. Limited exam secondary to motion artifact. The exam was prematurely terminated secondary to patient pain and discomfort. 2. Subtle acute appearing superior endplate compression deformity at T3 without retropulsion redemonstrated. 3. Partially imaged lumbar spinal hardware. Subacute to chronic changes of discitis/osteomyelitis at L1-L2 are better seen on prior imaging of the lumbar spine. 4. Degenerative changes of the thoracic spine as above. ACT 112: Negative or not required by law. The above report was generated using voice recognition software. It may contain grammatical, syntax or spelling errors. Electronically signed by: Eliazar Gonzalez M.D. 01/27/2023 11:06 AM PG Care Time/CCT Total # of Minutes Spent Total Time Spent with Patient: Total time spent is greater than 50% in coordination of care (as documented) at patient's floor/unit and/or counseling patient: Coding Level of Care Code 24505 SUB INP/OBS CARE 3/50MIN Diagnoses Closed T3 fracture S22.039A Closed fracture of left zygomatic arch S02.40FA Encephalopathy G93.40 H/O: HTN (hypertension) Z86.79 Iron deficiency anemia D50.9 Hypokalemia E87.6 Fall W19.XXXA
[2023-01-27] MEDS: DOXYCYCLINE HYCLATE 100 MG CAP PO SCH ×2 (09:57→20:27)
[2023-01-27] MEDS: DULoxetine HCL 60 MG CAP PO SCH (09:57)
[2023-01-27] MEDS ORDERED: tiZANidine HCL 4 MG TABLET PO PRN (11:05)
--- NOTE | 2023-01-27 11:08 | Magnetic Resonance Report ---
MR thoracic spine wo con HISTORY: [address] years-[address] Male CT with acute fracture superior T3 endplate acute mid back pain status po st fall. Known discitis/osteomyelitis at L1-L2. COMPARISON: CT thoracolumbar spine studies January 26, 2023, MRI lumbar spine 07/26/2022, CT abdomen an d pelvis 05/31/2022 TECHNIQUE: Multi planar multisequence MRI of the thoracic spine was obtained without the use of IV co ntrast. FINDINGS: Limited study secondary to extensive motion artifact. The exam was prematurely terminated secondary t o patient unable to complete the study secondary to pain and discomfort. No sagittal STIR images were obtained. Posterior interbody aviva and screw fusion hardware of the lumbar spine again noted. The ero sive process at L1-L2 with the severe L1 burst fracture is better appreciated on the comparison CT jinny mbar spine. Mild acute appearing superior endplate compression deformity at T3 without significant vertebral body height loss or retropulsion. Mild to moderate multilevel intervertebral disc space narrowing with sp ondylitic spurring and small posterior annular disc bulging, most pronounced at T7-T8 where there is mild central canal stenosis with moderate left-sided neural foraminal narrowing. Additional at least moderate bilateral foraminal stenosis at T8-T9 with mild central canal stenosis. IMPRESSION: 1. Limited exam secondary to motion artifact. The exam was prematurely terminated secondary to patien t pain and discomfort. 2. Subtle acute appearing superior endplate compression deformity at T3 without retropulsion redemons trated. 3. Partially imaged lumbar spinal hardware. Subacute to chronic changes of discitis/osteomyelitis at L1-L2 are better seen on prior imaging of the lumbar spine. 4. Degenerative changes of the thoracic spine as above. ACT 112: Negative or not required by law. The above report was generated using voice recognition software. It may contain grammatical, syntax o r spelling errors. Electronically signed by: Eliazar Gonzalez M.D. 01/27/2023 11:06 AM
[2023-01-27 11:39] LABS: Hematocrit (blood only) 29.5 % (42.0-52.0); Hemoglobin 9.8 g/dl (14.0-18.0); Mean Corpuscular Hemoglobin 26.7 pg (25.0-34.0); Mean Corpuscular Hgb Conc 33.2 g/dL (32.0-36.0); Mean Corpuscular Volume 80.4 fL (80.0-100.0); Mean Platelet Volume 8.8 fL (9.4-12.4); Platelet Count 382 K/uL (130-400); RDW Coefficient of Variation 14.8 % (11.5-14.5); RDW Standard Deviation 42.9 fL (36.4-46.3); Red Blood Count 3.67 M/uL (4.70-6.10); White Blood Count 10.13 K/ul (4.8-10.8)
[2023-01-27 11:55] LABS: C Reactive Protein 4.56 mg/dl (0-0.5)
[2023-01-27 11:56] LABS: Alanine Aminotransferase 21 U/L (7-52); Albumin Level 3.5 gm/dl (3.4-5.0); Alkaline Phosphatase 84 U/L (34-104); Anion Gap 6 (3-11); Aspartate Aminotransferase 33 U/L (13-39); BUN Creatinine Ratio 9.2 (10-20); Bilirubin,Total 0.4 mg/dl (0.2-1.0); Blood Urea Nitrogen 7 mg/dl (6-23); Calcium 8.9 mg/dl (8.6-10.3); Carbon Dioxide 26 mmol/L (21-32); Chloride 106 mmol/L (98-107); Est GFR (African American) 111.7 ml/min; Est GFR (Non-African American) 96.4 ml/min; Glucose 171 mg/dl (70-99(Fasting)); Phosphorus 2.7 mg/dl (2.5-4.9); Potassium 3.3 mmol/L (3.5-5.1); Sodium 138 mmol/L (136-145); Total Protein 6.1 gm/dl (6.0-8.3)
[2023-01-27 12:02] LABS: Troponin I High Sensitivity 38.6 pg/ml (0-20)
[2023-01-27 12:16] LABS: Ferritin 65.2 ng/ml (8-388)
[2023-01-27] MEDS: PANTOprazole 40 MG TAB PO SCH (12:35)
[2023-01-27] MEDS: SODIUM CHLORIDE 0.9% 1000ML 1,000 ML IV SCH (12:37)
[2023-01-27] MEDS: traMADol HCL 50 MG TABLET PO PRN (12:40)
[2023-01-27] MEDS ORDERED: POTASSIUM CHLORIDE CRTAB 20 MEQ TABCR PO STA (12:49)
--- NOTE | 2023-01-27 14:10 | Electrocardiogram Report ---
Test Reason : Blood Pressure : / mmHG Vent. Rate : 096 BPM Atrial Rate : 096 BPM P-R Int : 142 ms QRS Dur : 126 ms QT Int : 420 ms P-R-T Axes : 063 -43 056 degrees QTc Int : 530 ms Normal sinus rhythm with sinus arrhythmia Left axis deviation Right bundle branch block Septal infarct , age undetermined T wave abnormality, consider lateral ischemia Abnormal ECG When compared with ECG of 14-AUG-2022 08:55, Septal infarct is now Present QT has lengthened Confirmed by Mateo Young ([id number]) on 01/27/2023 2:09:48 PM Referred By: REFERRED SELF Confirmed By:Mateo Young
[2023-01-27] MEDS ORDERED: PSYLLIUM or GUAR GUM FIBER POWDER PACKET PO SCH (15:00)
[2023-01-27] MEDS: METOPROLOL TARTRATE 50 MG TAB PO SCH (20:27)
[2023-01-27] MEDS: levoFLOXacin 250 MG TABLET PO SCH (20:44)
[2023-01-28] MEDS: SODIUM CHLORIDE 0.9% 1000ML 1,000 ML IV SCH ×2 (01:15→16:24)
[2023-01-28] MEDS: levoFLOXacin 250 MG TABLET PO SCH ×2 (07:46→20:04)
[2023-01-28] MEDS: DULoxetine HCL 60 MG CAP PO SCH (07:46)
[2023-01-28] MEDS: DOCUSATE SODIUM/SENNA 50/8.6MG TAB PO SCH (07:46)
[2023-01-28] MEDS: METOPROLOL TARTRATE 50 MG TAB PO SCH ×2 (07:46→20:04)
[2023-01-28] MEDS: DOXYCYCLINE HYCLATE 100 MG CAP PO SCH ×2 (07:46→20:04)
[2023-01-28] MEDS: PANTOprazole 40 MG TAB PO SCH (07:46)
--- NOTE | 2023-01-28 09:52 | Hospitalist Progress Note ---
Date of Service January 28, 2023 Assessment & Plan (1) Closed T3 fracture: Plan: Dropped off to ER after a fall with sustained injury Imaging showed evidence for T3 superior endplate fracture w/o mention of retropulsed fragments. strenght intact b/l LE but w/ reported pain. Hx osteomyelitis/discitis of back w/ retained hardware and to be on chronic immunosuppresive therapy per ID note, levaquin to be continue and doxy stopped. Per patient, states he is on doxy twice daily and will continue for now. Added levaquin 250mg BID given recs UTD until CM able to assit w/ reaching out to Dr Rodney office - Left message. To note, patient also w/ anemia which could cause some elevation in inflammatory markers (and as discussed w/ him last admission when he reported massive dosing NSAIDs/aleve that should avoid NSAIDs. Iron panel w/ iron low 15, trans % sat 5% worse than priors) however ferritin not significantly elevated as would suspect w/ ongoing infection MRI lumbar spine ordered, --Subtle acute appearing superior endplate compression deformity at T3 without retropulsion redemonstrated. -- Partially imaged lumbar spinal hardware. Subacute to chronic changes of discitis/osteomyelitis at L1-L2 are better seen on prior imaging of the lumbar spine. Dr Clarke consulted Added back Levaquin 01/27/23 until able to verify Pain control -- Tylenol, tramadol. will d/c toradol given anemia. Zanaflex added prn given prior effectiveness w/ spasm reported pain. check fecal occult w/ next BM. Ketorolac on home med list, would avoid use. Placed on protonix daily for GI prophylaxis Await PT/OT evaluations (2) Closed fracture of left zygomatic arch: Plan: Mildly depressed left sided zygomatic arch fracture. CN intact on limited exam. Patient reports his vision is clear, with full EOM Pain control Monitor for any visual changes (3) Encephalopathy: Plan: Patient is a poor historian but cooperative and A&O x2 Hx polysubstance abuse Prior UDS + opiates, currently + COCAINE. Patient continues to deny drug use, states when he is out of it, someone slips him something. Prior alochol abuse/use. Patient does have hx discitis/osteomyelitis of spine as well as psoas abscess, following w/ outpt ID -- will need f/u. Procal - normal Added levaquin as ?if to be on rather than doxy. Continue Doxy BID for now. PPI for GI proph. Suspect drug abuse related to fall prior to admission. Denies CP, trop minimally elevated . Can check EKG w/ CP CK mildly elevated 323, likely from fall/injury. IVF placed NS @ 80cc/hr for today for dehydration on examination. Could also be from his psaos abscess given hip pain reported however not worse on exam compared to priors (4) H/O: HTN (hypertension): Plan: Hx HTN. Hx vtach at [facility] [place] in 2021 Last admit dc on metoprolol 50mg BID, lisinopril 20mg daily Ordered metoprolol 50mg BID for now, will monitor blood pressures/consider adding back JULIANNE if remaining elevated, but noting in setting of pain. EKG on admit notes septal infarct now present compared to Aug 2022 -- unclear when this occured, however given +cocaine testing suspect could have been induced by drug use vs other given extensive medical history/infections to spine/etc (5) Iron deficiency anemia: Plan: prior iron values low, suspected underyling PUD however denied pain to abdomen hgb stable compared to prior Continue PPI order placed for fecal occult blood w/ next BM will hold off IV venofer replacement for now -- was placed on oral supplementation last admission but does not appear was continued consider consultation for gi/outpt f/u if patient agreeable cbc continue to monitor d/c further toradol ordered for pain control and would avoid NSAIDs as able (6) Fall: Plan: in ER, 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 Right eye conjunctival hemorrhage, denies any change in vision. complains of some right scalp tenderness over excoriated area Was taken to MRI, but unable to really lay flat/still- the exam was prematurely terminated secondary to patient pain and discomfort. - Subtle acute appearing superior endplate compression deformity at T3 without retropulsion redemonstrated. - Partially imaged lumbar spinal hardware. Subacute to chronic changes of discitis/osteomyelitis at L1-L2 are better seen on prior imaging of the lumbar spine. - Degenerative changes of the thoracic spine. He reports he is on chronic antibiotics with doxy BID despite his ID note reporting to use Levaquin. Will need clarified, Physician Zainab Contreras has left a message with Dr Montalvo's office. Patient continues to deny drug use, he states when he is "out of it" "someone" probably slips him something. He does not remember coming to the ER. Review of Systems Review of Systems: patient not fully cooperative with history. He denies chest pain, abdominal pain, shortness of breath, vomiting and diarrhea Patient is a poor historian. He is concerned where his orange bag is located. Physical Exam Constitutional: WD/WN, vitals as above Eyes: subconjunctival hemorrhage right eye, EOMs intact, ecchymosis to left zygomatic arch, tender to palpation Neck: trachea midline, no thyromegaly Respiratory: normal respiratory effort, lungs clear to auscultation Cardiovascular: RRR, no murmur, no edema Gastrointestinal (Abdomen): normal bowel sounds, soft, nontender, no hepatosplenomegaly Musculoskeletal: ecchymoses upper extremities - right upper arm, left arm Neurologic: PERRL, EOMI, accommodation nl, no face palsy, no dysarthria Psychiatric: Orientation: alert, oriented to person and oriented to place Results & Data Results & Data Vital Signs (Past 12 Hours) Vital Signs Temp Pulse Resp BP Pulse Ox O2 Del Method 01/28/23 07:26 37 C 75 18 163/83 H 96 Room Air Laboratory Results Abnormal lab results 01/27/23 01/27/23 01/27/23 Range/Units 11:25 11:25 11:25 RBC 3.67 L (4.70-6.10) M/uL Hgb 9.8 L (14.0-18.0) g/dl Hct 29.5 L (42.0-52.0) % RDW Coeff of Adele 14.8 H (11.5-14.5) % MPV 8.8 L (9.4-12.4) fL ESR (0-20) mm/hr Potassium 3.3 L (3.5-5.1) mmol/L BUN/Creatinine Ratio 9.2 L (10-20) Glucose 171 H (70-99(Fasting)) mg/dl Iron 15 L (35-175) mcg/dl Transferrin % Sat 5 L (20-50) % Total Creatine Kinase 323 H (30-223) U/L Troponin I High Sens 38.6 H (0-20) pg/ml C-Reactive Protein 4.56 H (0-0.5) mg/dl 01/27/23 Range/Units 11:25 RBC (4.70-6.10) M/uL Hgb (14.0-18.0) g/dl Hct (42.0-52.0) % RDW Coeff of Adele (11.5-14.5) % MPV (9.4-12.4) fL ESR 37 H (0-20) mm/hr Potassium (3.5-5.1) mmol/L BUN/Creatinine Ratio (10-20) Glucose (70-99(Fasting)) mg/dl Iron (35-175) mcg/dl Transferrin % Sat (20-50) % Total Creatine Kinase (30-223) U/L Troponin I High Sens (0-20) pg/ml C-Reactive Protein (0-0.5) mg/dl PG Care Time/CCT Total # of Minutes Spent Total Time Spent with Patient: Total time spent is greater than 50% in coordination of care (as documented) at patient's floor/unit and/or counseling patient: Coding Level of Care Code 56059 SUB INP/OBS CARE 2/35MIN Diagnoses Closed T3 fracture S22.039A Closed fracture of left zygomatic arch S02.40FA Encephalopathy G93.40 H/O: HTN (hypertension) Z86.79 Iron deficiency anemia D50.9 Fall W19.XXXA
--- NOTE | 2023-01-28 12:38 | Electrocardiogram Report ---
Test Reason : Blood Pressure : / mmHG Vent. Rate : 089 BPM Atrial Rate : 089 BPM P-R Int : 144 ms QRS Dur : 136 ms QT Int : 414 ms P-R-T Axes : -79 -68 041 degrees QTc Int : 503 ms Unusual P axis, possible ectopic atrial rhythm Right bundle branch block Left anterior fascicular block Bifascicular block Abnormal ECG When compared with ECG of 27-JAN-2023 16:42, (unconfirmed) No significant change was found Confirmed by Mateo Young ([id number]) on 01/28/2023 12:38:26 PM Referred By: REFERRED SELF Confirmed By:Mateo Young
--- NOTE | 2023-01-28 12:38 | Electrocardiogram Report ---
Test Reason : Blood Pressure : / mmHG Vent. Rate : 089 BPM Atrial Rate : 089 BPM P-R Int : 142 ms QRS Dur : 136 ms QT Int : 410 ms P-R-T Axes : -86 -66 051 degrees QTc Int : 498 ms Unusual P axis, possible ectopic atrial rhythm Right bundle branch block Left anterior fascicular block Bifascicular block Abnormal ECG When compared with ECG of 26-JAN-2023 19:37, Ectopic atrial rhythm has replaced Sinus rhythm Criteria for Septal infarct are no longer Present T wave inversion less evident in Anterolateral leads Confirmed by Mateo Young ([id number]) on 01/28/2023 12:38:18 PM Referred By: REFERRED SELF Confirmed By:Mateo Young
--- NOTE | 2023-01-28 13:05 | Orthopedic Consultation ---
Date of Consultation January 28, 2023 Assessment & Plan (1) Closed T3 fracture: Assessment T3 compression fracture. Plan at this time is a subtle fracture of T3. This would not be something that we can adequately brace. He is pain is controlled would not recommend surgical invention. I would recommend he lift no more than 5 pounds for the next 6 weeks this should heal on its own without further intervention. Patient can continue to transfer and ambulate as tolerated. History of Present Illness Reason for Consultation: Back pain Attending Physician: Janes Samuel History of Present Illness This is a 63-year-old male well-known to me the presents after what he describes a fall. During our discussion today he has pain just about everywhere from his head to his toes. He has ecchymosis in various regions of his shoulders and back. He denies any significant or limiting back pain however. He states he has been able to get out of bed to his chair without difficulty. Denies any weakness to the upper or lower extremities. Allergies Allergy/AdvReac Type Severity Reaction Status Date / Time gabapentin Allergy Severe SHORT OF Verified 01/26/23 19:56 BREATH cat dander Allergy Intermediate itchy Verified 01/26/23 19:56 eyes, sneezing codeine AdvReac Intermediate GI upset Verified 01/26/23 19:56 Home Medications Medication Instructions Recorded Confirmed Type celecoxib 100 mg capsule (Celebrex) 100 mg PO BID #60 caps 08/16/22 01/26/23 Rx tramadol 50 mg tablet 50 - 100 mg PO Q6H PRN pain, 08/16/22 01/26/23 Rx moderate #40 tabs cyclobenzaprine 10 mg tablet 10 mg PO TID PRN muscle spasm #30 11/23/22 01/26/23 Rx tabs doxycycline hyclate 100 mg capsule 100 mg PO BID #60 caps 01/01/23 01/26/23 Rx duloxetine 60 mg capsule,delayed 60 mg PO DAILY 01/26/23 01/26/23 History release ketorolac 10 mg tablet 10 mg PO BID PRN pain,moderate 01/26/23 01/26/23 History Patient History Medical History Blood loss anemia Diastolic dysfunction Discitis HTN (hypertension) Hyperglycemia Hypertension Lower back pain Lumbar spinal stenosis LVH (left ventricular hypertrophy) LVH (left ventricular hypertrophy) severe Medical non-compliance Obesity Osteoarthritis Polysubstance use disorder Psoas abscess Psoas abscess Rib fracture left sided, remotely, healed without intervention- does have residual pain over area Rib pain on left side Tobacco dependence Surgical History History of arthroscopy of shoulder left History of back surgery x5 total History of knee replacement right S/P TKR (total knee replacement) Family History Denies family history of Ovarian cancer Prostate cancer Myocardial infarction Breast cancer Colorectal cancer Social History Smoking Status: Unknown if ever smoked Tobacco Type: Cigarettes Second Hand Exposure: Yes; Hx Substance Use: Yes Prescribed Medications: Marijuana Last Used Substance: Days (ago) Last Used Substance Other:: UDS + cocaine Preferred Language: Czech Communication Ability: Effective 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 He has good strength testing to the upper and lower extremities. He has no pain with percussion of the thoracic spine. Results & Data Vital Signs (Past 12 Hours) Vital Signs Temp Pulse Resp BP Pulse Ox O2 Del Method 01/28/23 07:45 Room Air 01/28/23 07:26 37 C 75 18 163/83 H 96 Room Air
[2023-01-29] MEDS: traMADol HCL 50 MG TABLET PO PRN (00:51)
[2023-01-29] MEDS: PANTOprazole 40 MG TAB PO SCH (07:27)
[2023-01-29] MEDS: DOCUSATE SODIUM/SENNA 50/8.6MG TAB PO SCH (07:28)
[2023-01-29] MEDS: METOPROLOL TARTRATE 50 MG TAB PO SCH (07:28)
[2023-01-29] MEDS: DULoxetine HCL 60 MG CAP PO SCH (07:28)
[2023-01-29] MEDS: DOXYCYCLINE HYCLATE 100 MG CAP PO SCH (07:28)
[2023-01-29] MEDS: levoFLOXacin 250 MG TABLET PO SCH (07:29)
--- NOTE | 2023-01-29 10:52 | Discharge Summary ---
Date of Service January 29, 2023 Admission HPI Per Admitting Provider Tigre Camacho is a 63yo male with history of HTN, polysubstance abuse and homelessness presenting after a fall. Patient does not provide details of events prior to arrival. Per discussion with ER staff, he was dropped off at the ER with some report of confusion and a fall. Patient states that he fell down the stairs yesterday. He reports pain in the face, shoulders and hips. No additional complaints - patient is not fully cooperative with history and physical. In the ER he is afebrile, hypertensive, no respiratory distress, adequate oxygenation on room air. Patient tried to get out of bed in the ER and fell. No LOC or head trauma. ER Course: Ativan 1mg IM NSS x 1L Admission Exam Per Admitting Provider General: patient resting naked in bed, mildly agitated, not fully compliant with history of physical exam, poorly kempt Skin: warm, dry, intact, ecchymosis on left face, right shoulder. HEENT: Periorbital edema, subconjunctival hemorrhage left eye, PERRL, EOMI, anicteric sclera, external ear normal to inspection and nontender, nares patent, moist mucus membranes, poor dentition, no oropharyngeal lesions, neck supple, trachea midline, no LAD, no thyromegaly, no JVD Heart: +S1/S2, regular, no m/r/g, no chest wall bruising Lungs: equal air entry bilaterally, no rales/rhonchi/wheezes Abd: +BS, soft, NT/ND, no masses/organomegaly/ascites, no abdominal bruising Ext: warm, 2+ pulses in UE/LE bilaterally, no clubbing/cyanosis or edema Neuro: moving all extremities with equal strength Principal Diagnosis closed T3 fracture closed fracture right zygomatic arch Discharge Exam Constitutional WD/WN, vitals as above (Patient awake laying in bed naked, with blanket over himself) ENMT ecchymoses left eye over zygomatic arch subconjunctival hemorrhage right eye (improving) Neck trachea midline, no thyromegaly Respiratory normal respiratory effort, lungs clear to auscultation Cardiovascular RRR, no murmur, no edema Gastrointestinal (Abdomen) normal bowel sounds, soft, nontender, no hepatosplenomegaly Skin ecchymoses bilateral upper arms Neurologic PERRL, EOMI, accommodation nl, no face palsy, no dysarthria Psychiatric Orientation: alert and oriented x 3 Discharge Data Allergies Allergy/AdvReac Type Severity Reaction Status Date / Time gabapentin Allergy Severe SHORT OF Verified 01/26/23 19:56 BREATH cat dander Allergy Intermediate itchy Verified 01/26/23 19:56 eyes, sneezing codeine AdvReac Intermediate GI upset Verified 01/26/23 19:56 Consultations 01/26/23 23:21 ED Decision to Admit Stat 01/27/23 11:40 Consult Orthopedic Surgery Routine Ordered Studies 01/26/23 19:19 CT abd pelvis IV con only Stat CT cervical spine wo con Stat CT chest diagnostic w con Stat CT face [CT facial bones wo con] Stat CT head/brain wo con Stat CT lumbar spine w con Stat CT thoracic spine w con Stat 01/27/23 02:06 MR thoracic spine wo con Routine IMPRESSION: 1. Limited exam secondary to motion artifact. The exam was prematurely terminated secondary to patient pain and discomfort. 2. Subtle acute appearing superior endplate compression deformity at T3 without retropulsion redemonstrated. 3. Partially imaged lumbar spinal hardware. Subacute to chronic changes of discitis/osteomyelitis at L1-L2 are better seen on prior imaging of the lumbar spine. 4. Degenerative changes of the thoracic spine as above. Hospital Course (1) Closed T3 fracture: Dropped off to ER after a fall with sustained injury Imaging showed evidence for T3 superior endplate fracture w/o mention of retropulsed fragments. strenght intact b/l LE but w/ reported pain. Hx osteomyelitis/discitis of back w/ retained hardware and to be on chronic immunosuppresive therapy per ID note, levaquin to be continue and doxy stopped. Per patient, states he is on doxy twice daily and will continue for now. Added levaquin 250mg BID given recs UTD until CM able to assit w/ reaching out to Dr Rodney office - Left message. To note, patient also w/ anemia which could cause some elevation in inflammatory markers (and as discussed w/ him last admission when he reported massive dosing NSAIDs/aleve that should avoid NSAIDs. Iron panel w/ iron low 15, trans % sat 5% worse than priors) however ferritin not significantly elevated as would suspect w/ ongoing infection MRI lumbar spine ordered, --Subtle acute appearing superior endplate compression deformity at T3 without retropulsion redemonstrated. -- Partially imaged lumbar spinal hardware. Subacute to chronic changes of discitis/osteomyelitis at L1-L2 are better seen on prior imaging of the lumbar spine. Dr Clarke consulted and advised no lifting greater than 5# x 6 weeks Added back Levaquin 01/27/23 Dr Montalvo's office stated patient has missed his appointment in October and never completed the 6 weeks of levaquin and also never completed the Dalvance either. Patient tells me that his PCP was rx Doxycycline Per Dr Montalvo 's office patient will need suppressive po antibiotics for life. Pain control - treated with Tylenol, tramadol. will d/c toradol given anemia. Zanaflex added prn given prior effectiveness w/ spasm. (2) Closed fracture of left zygomatic arch: Mildly depressed left sided zygomatic arch fracture. CN intact on exam. Patient reports his vision is clear, with full EOM Pain control Advised patient to monitor for any visual changes (3) Encephalopathy: Patient is a poor historian but cooperative and A&O x2 Hx polysubstance abuse Prior UDS + opiates, currently + COCAINE. Patient continues to deny drug use, states when he is out of it, someone slips him something. Prior alochol abuse/use. Patient does have hx discitis/osteomyelitis of spine as well as psoas abscess, following w/ outpt ID -- will need f/u. Physician liason spoke with Dr Rodney office and patient will either need a televisit or can follow up in the [place] office Gave patient the phone number [phone] Procal - normal Added levaquin PPI for GI proph. Suspect drug abuse related to fall prior to admission. Denies CP, trop minimally elevated. (4) H/O: HTN (hypertension): Hx HTN. Hx vtach at [facility] in 2021 Last admit d/c on metoprolol 50mg BID, lisinopril 20mg daily Continue Metoprolol 50mg BID and Lisinopril 20mg qd EKG on admit notes septal infarct now present compared to Aug 2022 -- unclear when this occured, however given +cocaine testing suspect could have been induced by drug use vs other given extensive medical history/infections to spine/etc Patient denies any chest pain, dyspnea or SOB (5) Iron deficiency anemia: prior iron values low, suspected underyling PUD however denied pain to abdomen hgb stable compared to prior Continue PPI order placed for fecal occult blood w/ next BM will hold off IV venofer replacement for now -- was placed on oral supplementation last admission but does not appear was continued consider consultation for gi/outpt f/u if patient agreeable Advised patient to call GI and gave phone number [phone] (6) Fall: in ER, but 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 and was dropped off + Cocaine in urine drug screen Patient states "someone must have slipped him this" Denies any chest pain, SOB, Dyspnea If any CP or symptoms of cardiac etiology low threshold to move to monitored bed/obtain imaging Total Time Total Time Spent Total Time Spent (In Minutes): 40 Discharge Plan Discharge Items Patient Disposition: Personal Halfway Reason For Visit: FALL Discharge Diagnosis: suspected fall Fracture T3, fracture right zygomatic arch + urine drug screen - Cocaine Condition on Discharge: Fair Activity: Per Instructions section Lifting: No more than 5 pounds Lifting Comment: no more than 5# for the next 6 weeks Weightbearing: Full weightbearing Non-emergency contact: Primary Care Provider Call non-emergency contact if: you have any medication questions and your pain is not controlled Follow-up/Referrals: ProMateo MD [Primary Care Provider] - 02/05/23 1:30 pm (APPOINTMENT WITH [facility]) Diet: Heart Healthy Addtl Attending Provider Instructions: You were dropped off at the emergency department and had multiple xray and CT scans. The scans revealed a T3 fracture and also a right zygomatic arch fracture. You were seen by Dr Clarke for the T3 fracture. You are instructed to lift NO MORE than 5 pound for the next 6 weeks You also were started on antibiotics - Levaquin while in patient. You had previously been following with Dr Rodney office for osteomyelitis on the lumbar spine. You were supposed to have IV antibiotic infusions of Dalvance (you received 2 ) and did not follow up with your appointmtne in October 2022 amd also were to take the Levaquin for 6 weeks and suspected this was not finished either. You stated you were taking Doxycycline from your family doctor. Per ID note, you will need suppressant po antibiotic therapy for life. You need to follow up with Infectious Disease Dr Montalvo [phone] either televisit or go to the [place] office Also recommend to see Gastroenterology for anemia and should have screening endoscopies to investigate this further The GI office number is [phone] Pending Studies at Discharge: No Stand-Alone Forms: [facility] [employer], Pain - Opioid Pain Management Skilled Items Patient informed of condition?: Yes DNR: Yes Discharge Level of Care: Other Communicable Disease: No Discharge Prognosis: Stable Lines: None Urinary Catheter: No Medications and DC Order Prescriptions: New doxycycline hyclate 100 mg Capsule 100 mg PO BID Qty: 30 0RF levofloxacin 250 mg Tablet 250 mg PO BID Qty: 30 0RF lisinopril 20 mg Tablet 20 mg PO QAM Qty: 30 0RF metoprolol tartrate 50 mg Tablet 50 mg PO BID Qty: 60 0RF tramadol 50 mg Tablet 50 mg PO Q6H PRN (Reason: pain) Qty: 30 0RF Continued cyclobenzaprine 10 mg tablet 10 mg PO TID PRN (Reason: muscle spasm) Qty: 30 0RF ketorolac 10 mg tablet 10 mg PO BID PRN (Reason: pain,moderate) Rx Instructions: Do not take at the same time with Celebrex duloxetine 60 mg capsule,delayed release(DR/EC) 60 mg PO DAILY tramadol 50 mg tablet 50 - 100 mg PO Q6H PRN (Reason: pain, moderate) Qty: 40 0RF Discontinued doxycycline hyclate 100 mg capsule 100 mg PO BID Qty: 60 3RF celecoxib [Celebrex] 100 mg Capsule 100 mg PO BID Qty: 60 0RF Hold Instructions: Home Medication placed on hold at Doctor's office Discharge Orders: Discharge Order (Routine); Ordered 01/29/23 Ordered By: Lolis Horner Admission Data Admit Date/Time: 01/26/23 23:42 Attending Provider: Janes Samuel Admit Provider: Vivienne Anne Primary Care Provider: Mateo Carrasco Other Providers: Naveed Clarke Other Interventions: Discharge Summary Assessment (RN) Last Done: 01/29/23 10:40 Supervising Physician Co-Signing Physician Notes During face to face encounter, I obtained a brief physical examination, discussed hospital stay with patient and discharge instructions with patient. I discussed discharge plan of care with ALY Horner. I reviewed above note and agree with it except for the following: Patient here with T3 fracture. Patient will require suppressive therapy as stated above with followup. Coding Level of Care Code 76261 INP/OBS DISCH >30 MIN Diagnoses Closed T3 fracture S22.039A Closed fracture of left zygomatic arch S02.40FA Encephalopathy G93.40 H/O: HTN (hypertension) Z86.79 Iron deficiency anemia D50.9 Fall W19.XXXA Time Spent (min) 40
[2023-01-29] MEDS ORDERED: lisinopril 20 MG TAB PO SCH (11:00)
[2023-01-30 09:27] LABS: Cocaine, Urine 5150 ng/mL (<100)
== END 2023-01-29 16:54 | disposition home or self-care (01) | DRG 551 ==
LOC: ED 18:46 → INTOOBSV 23:42 → 3E 23:42 → SUATTDRO 23:42 → 3E 01-27 01:28
DX: Z79.2 Long term (current) use of antibiotics; Z91.09 Other allergy status, other than to drugs and biological substances; F19.10 Other psychoactive substance abuse, uncomplicated; Z88.8 Allergy status to other drugs, medicaments and biological substances; E87.6 Hypokalemia; D50.9 Iron deficiency anemia, unspecified; Z96.7 Presence of other bone and tendon implants; M86.9 Osteomyelitis, unspecified; Z79.899 Other long term (current) drug therapy; Z59.00 Homelessness unspecified; G93.40 Encephalopathy, unspecified; K68.12 Psoas muscle abscess; M46.46 Discitis, unspecified, lumbar region; I10 Essential (primary) hypertension; Z96.651 Presence of right artificial knee joint; S22.039A Unspecified fracture of third thoracic vertebra, initial encounter for closed fracture; H11.31 Conjunctival hemorrhage, right eye; Z88.5 Allergy status to narcotic agent; W10.9XXA Fall (on) (from) unspecified stairs and steps, initial encounter; S02.40FA Zygomatic fracture, left side, initial encounter for closed fracture

== ENCOUNTER 2023-12-26 16:19 | Observation (INO) ==
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
[2023-12-26 18:24] LABS: Alanine Aminotransferase 41 U/L (7-52); Albumin Globulin Ratio 1.1 (0.9-2); Albumin Level 3.2 gm/dl (3.4-5.0); Alkaline Phosphatase 123 U/L (34-104); Anion Gap 5 (3-11); Aspartate Aminotransferase 48 U/L (13-39); BUN Creatinine Ratio 20.6 (10-20); Bilirubin,Total 0.6 mg/dl (0.2-1.0); Blood Urea Nitrogen 21 mg/dl (6-23); Calcium 8.6 mg/dl (8.6-10.3); Carbon Dioxide 22 mmol/L (21-32); Chloride 110 mmol/L (98-107); Est GFR (African American) 89.6 ml/min; Est GFR (Non-African American) 77.3 ml/min; Globulin 2.8 gm/dl (2.5-4.0); Glucose 81 mg/dl (70-99(Fasting)); Iron 11 mcg/dl (35-175); Potassium 4.9 mmol/L (3.5-5.1); Sodium 137 mmol/L (136-145); Total Iron Binding Cap Calc 390 mcg/dl (250-450); Transferrin (FE) Percent Satur 3 % (20-50); Unsaturated Iron Binding Cap 379 mcg/dl (155-355)
--- NOTE | 2023-12-26 18:27 | XRay Report ---
XR hand LT min 3V routine CLINICAL HISTORY: thenar pain COMPARISON STUDY: None. FINDINGS: No fracture or dislocation within the left hand. There is thenar soft tissue swelling. 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 IMPRESSION: 1. No fracture or dislocation within the left hand. 2. Thenar soft tissue swelling. 3. [id number] osteoarthritis. ACT 112: Negative or not required by law. Electronically signed by: Zia Mendieta M.D. 12/26/2023 6:25 PM
[2023-12-26 18:30] LABS: Troponin I High Sensitivity 25.3 pg/ml (0-20)
[2023-12-26 18:33] LABS: INR 1.6 (0.9-1.1); Partial Thromboplastin Time 29 Seconds (21-31); Prothrombin Time 16.6 Seconds (9.0-12.0)
[2023-12-26 18:44] LABS: Ferritin 5.8 ng/ml (8-388)
[2023-12-26 18:54] LABS: Hematocrit (blood only) 17.1 % (42.0-52.0); Hemoglobin 4.2 g/dl (14.0-18.0); Mean Corpuscular Hemoglobin 14.3 pg (25.0-34.0); Mean Corpuscular Hgb Conc 24.6 g/dL (32.0-36.0); Mean Corpuscular Volume 58.4 fL (80.0-100.0); Mean Platelet Volume 9.4 fL (9.4-12.4); Nucleated RBC # (auto) 0.04 K/uL (0.00-0.12); Nucleated RBC % (auto) 0.4 %; Platelet Count 410 K/uL (130-400); RDW Standard Deviation 50.1 fL (36.4-46.3); Red Blood Count 2.93 M/uL (4.70-6.10); White Blood Count 11.09 K/ul (4.8-10.8)
[2023-12-26] MEDS ORDERED: SODIUM CHLORIDE 0.9% 250 ML IV PRN ×2 (19:02→22:01)
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
[2023-12-26 23:08] LABS: Amphetamines+Metham, Urine Neg (Neg); Barbiturates, Urine Neg (Neg); Benzodiazepine, Urine Neg (Neg); Cocaine, Urine Neg (Neg); MDMA (Ecstacy), Urine Neg (Neg); Marijuana, Urine Neg (Neg); Methadone, Urine Neg (Neg); Opiate, Urine Neg (Neg); Phencyclidine, Urine Neg (Neg)
[2023-12-26] MEDS: FOLIC ACID 1 MG in SYRINGE 9.8 ML IV SCH (23:09)
[2023-12-26] MEDS: THIAMINE HCL 500 MG in SODIUM CHLORIDE 0.9% 50 ML IV SCH (23:09)
[2023-12-26] MEDS: METOPROLOL TARTRATE 50 MG TAB PO SCH (23:10)
[2023-12-26] MEDS: DOXYCYCLINE HYCLATE 100 MG CAP PO SCH (23:10)
[2023-12-26] MEDS: DIPHTHER/TETAN/PERTUS Vaccine (Tdap, Adol/Adult) 0.5mL IM ONE (23:11)
[2023-12-27] MEDS ORDERED: LORazepam 1 MG TAB PO PRN (00:38)
[2023-12-27] MEDS: traMADol HCL 50 MG TABLET PO PRN (00:59)
[2023-12-27] MEDS: guaiFENesin 600 MG TABCR PO SCH (01:46)
[2023-12-27 02:53] LABS: Hematocrit (blood only) 25.5 % (42.0-52.0); Hemoglobin 6.9 g/dl (14.0-18.0); Mean Corpuscular Hemoglobin 17.7 pg (25.0-34.0); Mean Corpuscular Hgb Conc 27.1 g/dL (32.0-36.0); Mean Corpuscular Volume 65.4 fL (80.0-100.0); Mean Platelet Volume 9.2 fL (9.4-12.4); Nucleated RBC # (auto) 0.12 K/uL (0.00-0.12); Platelet Count 426 K/uL (130-400); RDW Coefficient of Variation 28.8 % (11.5-14.5); White Blood Count 12.22 K/ul (4.8-10.8)
[2023-12-27] MEDS ORDERED: SODIUM CHLORIDE 0.9% 250 ML IV PRN (02:53)
[2023-12-27 03:12] LABS: INR 1.4 (0.9-1.1); Prothrombin Time 15.5 Seconds (9.0-12.0)
[2023-12-27] MEDS: FUROSEMIDE 40 MG/4 ML VIAL IV ONE (03:30)
[2023-12-27] MEDS ORDERED: NICOTINE POLACRILEX 2 MG GUM MT PRN (03:49)
[2023-12-27] MEDS: NICOTINE 21 MG/24 HR TDSY TD SCH (04:36)
[2023-12-27] MEDS ORDERED: guaiFENesin 600 MG TABCR PO SCH (09:00)
[2023-12-27] MEDS: IRON SUCROSE 300 MG in SODIUM CHLORIDE 0.9% 250 ML IV SCH (09:32)
[2023-12-27] MEDS: DULoxetine HCL 60 MG CAP PO SCH (09:39)
[2023-12-27] MEDS: lisinopril 20 MG TAB PO SCH (09:40)
[2023-12-27] MEDS: levoFLOXacin 250 MG TABLET PO SCH (09:40)
[2023-12-27] MEDS: MULTIVITAMIN CHEWABLE TAB PO SCH (09:40)
[2023-12-27 10:12] LABS: Albumin Level 3.3 gm/dl (3.4-5.0); Calcium 8.7 mg/dl (8.6-10.3); Potassium 5.1 mmol/L (3.5-5.1)
[2023-12-27 10:18] LABS: Albumin Globulin Ratio 1.1 (0.9-2); BUN Creatinine Ratio 21.8 (10-20); Creatinine Clr Calc Pharmacy 54.6 ml/min; Est GFR (African American) 74.4 ml/min; Est GFR (Non-African American) 64.2 ml/min; Globulin 2.9 gm/dl (2.5-4.0); Phosphorus 4.6 mg/dl (2.5-4.9); Total Protein 6.2 gm/dl (6.0-8.3)
[2023-12-27 10:32] LABS: Thyroid Stimulating Hormone 1.318 uIu/ml (0.300-4.500)
--- NOTE | 2023-12-27 12:04 | Electrocardiogram Report ---
Test Reason : Blood Pressure : / mmHG Vent. Rate : 082 BPM Atrial Rate : 082 BPM P-R Int : 112 ms QRS Dur : 130 ms QT Int : 416 ms P-R-T Axes : -70 -58 021 degrees QTc Int : 486 ms Sinus rhythm Right bundle branch block Left anterior fascicular block Bifascicular block Abnormal ECG Confirmed by Brian Mahoney ([id number]) on 12/27/2023 12:03:55 PM Referred By: REFERRED SELF Confirmed By:Koko Mahoney
[2023-12-27 14:47] LABS: Hemoglobin 7.7 g/dl (14.0-18.0)
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
[2023-12-27] MEDS: PHYTONADIONE 5 MG TAB PO STA (15:49)
[2023-12-27] MEDS: IRON SUCROSE 300 MG in SODIUM CHLORIDE 0.9% 250 ML IV ONE (16:25)
--- NOTE | 2023-12-27 22:56 | Billing Data ---
Date of Service December 27, 2023 Coding Level of Care Code 37656 INT INP/OBS CARE
[2023-12-28 12:07] LABS: Methyl Alcohol Comment WHOLE BLOOD; Methyl Alcohol Level NONE DETECTED (NONE DETECTED)
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
[2023-12-28] MEDS: CYCLOBENZAPRINE HCL 10 MG TAB PO PRN (22:47)
[2023-12-28 23:49] LABS: Hematocrit (blood only) 30.3 % (42.0-52.0); Hemoglobin 8.1 g/dl (14.0-18.0); Mean Corpuscular Hemoglobin 17.9 pg (25.0-34.0); Mean Corpuscular Hgb Conc 26.7 g/dL (32.0-36.0); Mean Platelet Volume 9.3 fL (9.4-12.4); Nucleated RBC # (auto) 0.04 K/uL (0.00-0.12); Nucleated RBC % (auto) 0.2 %; Platelet Count 433 K/uL (130-400); RDW Coefficient of Variation 29.9 % (11.5-14.5); RDW Standard Deviation 69.1 fL (36.4-46.3); Red Blood Count 4.52 M/uL (4.70-6.10); White Blood Count 17.43 K/ul (4.8-10.8)
[2023-12-28 23:51] LABS: Albumin Globulin Ratio 1.1 (0.9-2); Albumin Level 3.2 gm/dl (3.4-5.0); Anisocytosis Present; BUN Creatinine Ratio 23.7 (10-20); Basophils # (auto) 0.06 K/uL (0.00-0.20); Basophils % (auto) 0.3 %; Bilirubin,Total 0.7 mg/dl (0.2-1.0); Calcium 8.1 mg/dl (8.6-10.3); Creatinine Clr Calc Pharmacy 75.8 ml/min; Eosinophils % (auto) 1.7 %; Est GFR (African American) 100.2 ml/min; Est GFR (Non-African American) 86.5 ml/min; Globulin 2.9 gm/dl (2.5-4.0); Hypochromasia Present; Immature Granulocytes % (auto) 0.6 %; Lymphocytes # (auto) 1.46 K/uL (1.20-3.40); Lymphocytes % (auto) 8.4 %; Monocytes # (auto) 1.41 K/uL (0.11-0.59); Monocytes % (auto) 8.1 %; Neutrophils % (auto) 80.9 %; Ovalocytes 1+; Polychromasia 1+; Potassium 4.2 mmol/L (3.5-5.1); Tear Drop Cells 1+; Total Protein 6.1 gm/dl (6.0-8.3)
[2023-12-29] MEDS: OLANZapine 10 MG/2.1 ML SDV IM STA
[2023-12-29] MEDS: LORazepam 1 MG in SYRINGE 0.5 ML IV STA (05:15)
[2023-12-29 08:18] LABS: Albumin Globulin Ratio 1.1 (0.9-2); BUN Creatinine Ratio 22.2 (10-20); Bilirubin,Total 0.6 mg/dl (0.2-1.0); Est GFR (African American) 108.9 ml/min; Est GFR (Non-African American) 93.9 ml/min; Globulin 2.7 gm/dl (2.5-4.0); Hematocrit (blood only) 27.9 % (42.0-52.0); Hemoglobin 7.6 g/dl (14.0-18.0); Mean Corpuscular Hemoglobin 18.4 pg (25.0-34.0); Mean Corpuscular Hgb Conc 27.2 g/dL (32.0-36.0); Mean Corpuscular Volume 67.6 fL (80.0-100.0); Mean Platelet Volume 9.3 fL (9.4-12.4); Nucleated RBC # (auto) 0.02 K/uL (0.00-0.12); Nucleated RBC % (auto) 0.1 %; Platelet Count 364 K/uL (130-400); Potassium 4.2 mmol/L (3.5-5.1); RDW Coefficient of Variation 30.6 % (11.5-14.5); RDW Standard Deviation 71.7 fL (36.4-46.3); Red Blood Count 4.13 M/uL (4.70-6.10); Total Protein 5.7 gm/dl (6.0-8.3); White Blood Count 14.49 K/ul (4.8-10.8)
[2023-12-29 08:29] LABS: INR 1.2 (0.9-1.1)
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
[2023-12-29] MEDS: FOLIC ACID 1 MG TAB PO SCH (16:56)
[2023-12-29] MEDS: FERROUS SULFATE 325 MG TAB PO SCH (16:56)
[2023-12-29] MEDS: THIAMINE HCL 100 MG TAB PO SCH (16:56)
[2023-12-30 08:18] LABS: Albumin Globulin Ratio 1.1 (0.9-2); Albumin Level 3.2 gm/dl (3.4-5.0); BUN Creatinine Ratio 16.1 (10-20); Bilirubin,Total 0.6 mg/dl (0.2-1.0); Calcium 8.3 mg/dl (8.6-10.3); Est GFR (African American) 105.7 ml/min; Est GFR (Non-African American) 91.2 ml/min; Potassium 4.4 mmol/L (3.5-5.1); Total Protein 6.2 gm/dl (6.0-8.3)
[2023-12-30] MEDS: THIAMINE HCL 250 MG in SODIUM CHLORIDE 0.9% 50 ML IV SCH (08:34)
[2023-12-30 08:52] LABS: Hematocrit (blood only) 31.3 % (42.0-52.0); Hemoglobin 8.1 g/dl (14.0-18.0); Mean Corpuscular Hemoglobin 17.8 pg (25.0-34.0); Mean Corpuscular Hgb Conc 25.9 g/dL (32.0-36.0); Mean Corpuscular Volume 68.8 fL (80.0-100.0); Mean Platelet Volume 8.8 fL (9.4-12.4); Platelet Count 405 K/uL (130-400); RDW Standard Deviation 72.5 fL (36.4-46.3); Red Blood Count 4.55 M/uL (4.70-6.10)
[2023-12-30 08:58] LABS: Anisocytosis Present; Basophils # (auto) 0.06 K/uL (0.00-0.20); Basophils % (auto) 0.5 %; Eosinophils # (auto) 0.34 K/uL (0.00-0.50); Eosinophils % (auto) 2.6 %; Hypochromasia Present; Immature Granulocytes # (auto) 0.09 K/uL (0.01-0.20); Immature Granulocytes % (auto) 0.7 %; Lymphocytes % (auto) 8.4 %; Microcytosis Present; Monocytes # (auto) 1.15 K/uL (0.11-0.59); Monocytes % (auto) 8.8 %; Neutrophils # (auto) 10.36 K/uL (1.40-6.50); Platelet Estimate Normal (Normal); Polychromasia 1+; Tear Drop Cells 2+
[2023-12-30] MEDS ORDERED: OLANZapine ZYDIS 5 MG ORALLY DIS. TAB PO PRN (10:50)
[2023-12-30] MEDS: OLANZapine 10 MG/2.1 ML SDV IM PRN (11:56)
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
--- NOTE | 2023-12-30 19:35 | Communication Note ---
Date of Service: December 30, 2023 Events leading up to AMA discharge: Earlier today the patient had gone into the bathroom to have a bowel movement. Staff report he was in the bathroom for nearly 30 minutes. Several times they checked on him to ensure he was ok. He recalls this incident and states he was simply frustrated that people were bothering him while he was in the bathroom. He got upset and banged on the bathroom door several times. Staff state he not only banged on the door but was slamming the door shut. Sometime later he kept trying to close the main door his patient room from the hallway. He was told by staff that the door needed to remain open. He would not comply, and ultimately took a chair and placed it against the door. He stated he had done this because he wanted privacy and the door wouldn't stay closed/latched. Staff stated he had done this in an attempt to block people from coming in his room. Security was called at this time. IM Zyprexa 2.5mg x 1 was given. Nursing staff report he was much more calm and cooperative for the remainder of the day after receiving the IM zyprexa. Of note - I have cared for Mr Camacho on previous hospitalizations and he has had tendencies for noncompliance with recommendations, being disrespectful with staff and providers, etc. I saw Mr Camacho later in the afternoon and he was laying on his bed comfortably. We had a very lengthy conversation about his hospitalization. He recalled why he had come to the hospital (outpatient blood work showed severe anemia). He recalled getting blood transfusions here. He recalled feeling poorly from the anemia. He stated "I've had low iron for a long time." He knew it was Saturday, December 30, 2023. He knew he was in the hospital. He could recite his home address ([facility], near the [facility]). He could recite much of his past medical history surrounding his diskitis, follow-up with Dr Malina Montalvo from infectious diseases, his lack of access to tramadol for chronic pain as he has not been able to secure a PCP that would prescribe such, etc. When I asked him what he would do if he fell ill again he said "I would go back to the hospital, but I'm not coming back here - I'll go to [facility]." In addition, he was able to recount the events surrounding the IM shot of nisha and recalls security being summoned to his room. He voiced disgust and anger that this happened. I explained that staff were concerned about his safety and the safety of those around him. After examining him I recommended that he remain hospitalized for at least 1 additional night. He adamantly refused, stating consistently over and over that he needed to get back to his apartment (on [facility]) due to issues he had been having with his landlord. He was concerned that the landlord was going to remove items from his apartment and that he "needed to leave to check on his apartment." He stated multiple times "I'll come back tomorrow" to do whatever needed to be done regarding his medical issues. Explained to him that his proposition is not possible and that once he is discharged his hospital stay is complete. Following my lengthy encounter I contacted our Behavioral Health Liaison. I asked the psych liaison to assist in determining his medical decision capacity. The psych liaison spent nearly an hour speaking with him. Many of the things he told me were similar to what he told her. There was no evidence of any psychosis, suicidal ideation, etc. In her estimation she felt he retained medical decision making capacity at this time. A 302 warrant was not necessary nor indicated. I, too, felt Mr Camacho retained medical decision making capacity. I believe he generally decides to make poor medical decisions, but [id number] he appears to understand the risks/benefits of those decisions. He recalled all of the events of earlier today and I do feel he was acting out in anger as he admitted that he was upset about being bothered in the bathroom, etc. Again he has had similar, perhaps milder, forms of explosive behavior and speech on prior hospitalizations. After the psych liaison spoke with him he came out to the nurse's station and asked to be discharged. I went back to his room and explained to him the AMA (against medical advice) process. Explained to him my concerns about lack of transportation home (he stated he would either walk or call his significant other), lack of appropriate follow-up appts & prescriptions, the events of today, etc. Again he cited the need to check on his apartment and the issues with his landlord. One more time I encouraged him to stay in the hospital overnight. He again adamantly refused to remain hospitalized. I signed his AMA form and left it with the nursing staff. I made him aware that no prescriptions nor follow-up appointments would be made since he was leaving AMA. He was upset about this but voiced understanding. Allan Vela MD
== END 2023-12-30 19:43 | disposition left against medical advice (07) | DRG 812 ==
LOC: ED 16:19 → SUATTDRO 19:47 → 4W 19:47 → INTOOBSV 19:47 → 4W 21:19

== ENCOUNTER 2024-05-31 08:16 | Observation (INO) ==
--- OUTSIDE RECORDS SUMMARY | 2024-05-31 08:21 | External Medical Summary | Summary of Care ---
Author Name Unknown Organization [facility] Address [address] [facility] [place] [address] Phone [phone] Care Team Providers Care Fan Balancer Name Role Phone Pro, Mateo Kent MD Primary Care Provider [phone]- [phone] Reason for Visit * Reason Onset Date Comments Advice 01/22/2024 Encounter Details Date Type Department Care Team (Late st Contact Info) Description 01/22/2024 Telephone Family Practice [facility] [address] [place] [address] Hemant Connor MD [address] [place] [address] Advice Allergies Active Allergy Reactions Criticality Noted Date Comments Cat Dander 09/05/2022 Codeine 09/05/2022 Other reaction(s): GI Distress, vomiting Gabapentin 09/05/2022 Other reaction(s): chest tightness documented as of this encounter (statuses as of 04/22/2024) Medications Medication Sig Dispensed Refills Start Date End Date Status ETODOLAC 200 MG PO CAPSIndications:Low back pain One pill by mouth 3 times a day with food for pain 90 Cap 5 11/27/2013 Active TRAMADOL HCL 50 MG PO TABSIndications:Backa galindo TAKE ONE TABLET BY MOUTH EVERY 4 TO 6 HOURS NEEDED 60 Tab 0 12/14/2014 Active gabapentin (NEURONTIN) 300 MG Capsule Take 1 Cap by mouth 3 times a day. 90 Cap 2 02/01/2015 Active Omeprazole 20 MG Oral Capsule Delayed Release (PriLOSEC) Take 1 Capsule (20 mg) by mouth in the morning. Every morning.. 08/16/2022 Active Lisinopril 20 MG Oral Tablet (Prinivil)Indications :HTN, goal below 130/80 Take 1 Tablet (20 mg) by mouth in the morning. 90 Tablet 3 09/05/2022 Active Metoprolol Tartrate 50 MG Oral Tablet (Lopressor)Indication s:HTN, goal below 130/80 Take 1 Tablet (50 mg) by mouth in the morning and 1 Tablet (50 mg) before bedtime. 180 Tablet 3 09/05/2022 Active levoFLOXacin 750 MG Oral Tablet (Levaquin) Take 1 Tablet (750 mg) by mouth in the morning. 10 Tablet 09/11/2022 Active Cyclobenzaprine HCl 10 MG Oral Tablet (Flexeril)Indications :Low back pain TAKE ONE TABLET BY MOUTH THREE TIMES DAILY NEEDED Strength: 10 mg 60 Tablet 09/10/2022 Active Doxycycline Hyclate 100 MG Oral Capsule TAKE 1 CAPSULE BY MOUTH TWO TIMES DAILY 08/16/2022 Active Ketorolac Tromethamine 10 MG Oral Tablet (Toradol) TAKE 1 TABLET BY MOUTH TWO TIMES DAILY NEEDED FOR MODERATE PAIN 60 Tablet 3 05/14/2023 Active documented as of this encounter (statuses as of 04/22/2024) Active Problems Problem Noted Date Diagnosed Date Possible alcohol use disorder on screening for a lcoholism 09/05/2022 Lumbar degenerative disc disease 09/04/2022 HTN, goal below 130/80 09/04/2022 Dyslipidemia 09/04/2022 Obesity, Class II, BMI 35-39.9, isolated (see ac tual BMI) 09/04/2022 Post laminectomy syndrome 09/04/2022 documented as of this encounter (statuses as of 04/22/2024) Resolved Problems Problem Noted Date Diagnosed Date Resolved Date Low back pain 11/27/2013 09/04/2022 documented as of this encounter (statuses as of 04/22/2024) Social History Tobacco Use Types Packs/Day Years Used Date Smoking Tobacco: Former Cigarettes 1 7 0 11/10/2004 - 11/10/2011 Smokeless Tobacco: Never Alcohol Use Standard Drinks/Week Comments No 0 (1 standard drink = 0.6 oz pure alcohol) 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 (Adult - for ages 18 years and over) Not on file 03/24/2024 Is your family able to pay t he heat, water, or electric bill? (Household - for ages 0-17 years) Not on file 03/24/2024 Does your family have access to good internet? (Household - for ages 0-17 years) Not on file 03/24/2024 Social Connections Answer Date Recorded How often do you feel lonely or isolated from those around you? (Adult - for ages 18 years and over) Not on file 03/24/2024 Sex and Gender Information Value Date Recorded Sex Assigned at Not on file Gender Identity Not on file Sexual Orientation Not on file Job Start Date Occupation Industry Not on file Not on file Not on file documented as of this encounter Miscellaneous Notes * Telephone Encounter - Charlee Wallace LPN - 2024 1:46 PM EDT LMOM for Angie to return call * Telephone Encounter - Ema Fisher OSA - 01/22/2024 3:57 PM EDT Angie from [facility] is calling to speak with a nurse of Dr Connor. I did inform her we have him listed with Dr Carrasco as pcp and he was last seen by Dr Connor 09-05-22. She states she has questions about a prescription that Dr Connor filled and wrote for him in June2023 Please call her back to discuss. documented in this encounter Plan of Treatment Health Maintenance Due Date Last Done Comments Lipid Panel 1959 Depression Screening 1971 HIV Screening 1974 Albumin/Creatinine Ratio 1977 DTaP,Tdap,and Td Vaccines (1 - Tdap) 08/08/2002 08/07/2002 Cologuard 01/25/2004 Colonoscopy 01/25/2004 Colorectal Cancer Screening 01/25/2004 Fecal Occult Blood Test 01/25/2004 Sigmoidoscopy 01/25/2004 Zoster Vaccines (1 of 2) 2009 COVID-19 Vaccine ( - 2022-2 4 season) 2023 GFR 08/15/2023 08/15/2022 AAA Screening 01/25/2024 Pneumococcal Vaccine: 65+ Years (1 of 1 - PCV) 01/25/2024 Influenza Vaccine (FLU shot) (#1) 2024 06/14/2020, 08/09/2005 Diabetes Screening 08/15/2025 08/15/2022 HPV (Gardasil) Vaccine Aged Out No lo nger eligible based on patient's age to complete this topic Hepatitis B Vaccine Aged Out No longe r eligible based on patient's age to complete this topic MENINGOCOCCAL (MENACTRA/MENVEO) Aged Out No longer eligible b ased on patient's age to complete this topic documented as of this encounter Medical Devices Not on filedocumented as of this encounter Care Teams Fan Balancer Relationship Specialty Start Date End Date Pro, aMteo Kent MD [address] [place] [address] PCP - General Internal Medicine 08/15/22 documented as of this encounter
--- NOTE | 2024-05-31 08:55 | Emergency Department Note ---
Impression & Plan Acute pain of right hip, Ambulatory dysfunction ED Provider Note HISTORY OF PRESENT ILLNESS: Patient is a 64-year-old male presenting with right hip pain. Patient reports he is homeless and was sleeping on a bench overnight when he woke up and was unable to walk secondary to right hip and low back pain. Patient is difficult to get any history from as he states "it is all in the computer you can look there." When discussing with the patient that this is a new complaint and he needs to partake in his exam he states that "just look in the computer I am done with this." He denies any injury to the hip. He states "I am homeless, what do you expect." No reported fevers that he knows of. Patient is refusing to answer any more questions. ROS: as above PHYSICAL EXAM: Constitutional: Patient appears in no acute distress. HENT: Head: Normocephalic and atraumatic. Eyes: EOMI, PERRL Mouth/Throat: Mucous membranes moist. Neck: Trachea midline. Neck supple. Cardiovascular: RRR, No murmurs, rubs or gallops. Intact distal pulses. Pulmonary/Chest: No respiratory distress. Breath sounds clear and equal bilaterally. No wheezes or rales. Abdominal: Abdomen soft, no tenderness, rebound or guarding. Musculoskeletal: Patient complaining of pain with passive straight leg raise on the right Skin: Warm and dry. No rash, erythema, pallor or cyanosis Psychiatric: Appropriate mood and affect for situation. Neurological: Alert and keenly responsive. CN II-XII grossly intact, moving all extremities equally and fully. MDM: - Vitals signs showed hypertension - History obtained via patient. History as above. - Chronic conditions affecting care: HTN; homelessness; anemia - Differential diagnoses include, but are not limited to: muscle strain; septic hip; femur fracture; pelvic fracture; referred pain from spine - Order placed for continuous cardiac monitoring. At this time, monitor showed rate of 80 bpm with normal sinus rhythm, per my interpretation. - External medical records reviewed. Discharge summary dated 12/30/2023 was reviewed. Patient was admitted that time for iron deficiency anemia requiring a transfusion. - Patient has a history of profound anemia and patient reports a previous infection in the hip. I ordered IV access to obtain laboratory workup and CT imaging for further evaluation, but patient is refusing CT imaging stating that he cannot pay for it. He is stating that he will not allow us to do a straight stick or IV in his upper extremities as "I had it done in my leg before and in my foot and that is where you can do it." I did discuss with the patient that an IV or straight stick in the foot is high risk for infection, especially given his circumstances. He is demanding that he speak with another physician as he states that I am "incompetent and unable to do this." - I did have another physician go in and evaluate the patient, but patient was still very abrasive and would not participate in examination. I again went into the room and discussed the plan of care with the patient and expressed concern that he may have an infection in the hip, given his history. I discussed that we cannot rule this out without getting laboratory workup and further imaging test. He was agreeable to an x-ray, with x-ray of the hip showing no obvious fracture, per my interpretation. Patient was still refusing lab work at that time and I went in again to talk with the patient and he states that "the only place you can get labs is from my foot or my leg." I did again discuss with the patient that this is not ideal for obtaining laboratory workup, as there is a high risk of complications and infections with getting an IV or a straight stick done in the foot. He is stating "I am not refusing him just telling you you cannot get it from my upper extremities." He is unwilling to allow us to even attempt to do this or use an ultrasound to get an IV or straight stick. When discussing about disposition, given his obstruction to his own care, the patient states that he will not be willing to get a CT of his pelvis. Patient is alert and oriented. He does demonstrate decision-making capacity. - Laboratory workup interpreted by myself showed leukocytosis (WBC 10.93); stable electrolytes - CT pelvis wo contrast negative for acute pathology - CT lumbar spine wo contrast negative for acute pathology. Noted to have a chronic discitis/osteomyelitis at the L1/L2 level. Noted to have a 9 mm retropulsion of the posterior cortex at L1, which is stable from previous. - Patient is stating that he cannot walk any could not possibly be discharged from the emergency department. Patient yells anytime he tried to move his right lower extremity. Will admit to hospitalist service for further evaluation and possible consultation with orthopedic surgery. - Discussion was had with employment evaluator/case manager about patient's case and need for admission - Hospitalist, Dr. Barrios, consulted for admission - [facility] ASSESSMENT AND PLAN: Diagnosis: right leg pain; ambulatory dysfunction Plan: admit Past Med/Surg History Problem List (Updated 05/31/24 @ 14:26 by Alyce Hidalgo MD) Ambulatory dysfunction (Acute) Acute pain of right hip (Acute) Left against medical advice Bilateral lower extremity edema Encounter for assessment of healthcare decision-making capacity Contact with metalworking machinery as cause of accidental injury Polysubstance use disorder Osteomyelitis of vertebra Malnutrition Wernicke encephalopathy MENDOZA (dyspnea on exertion) (Acute) Iron deficiency anemia H/O: HTN (hypertension) Closed T3 fracture (Acute) Homeless (Acute) Closed fracture of left zygomatic arch (Acute) Homelessness Anemia (Acute) Paranoia Altered mental status (Acute) Confusion Rupture of proximal biceps tendon Left arm cellulitis Encounter for wound care Hyperglycemia Screening for osteoporosis Insomnia Hardware failure Abnormal MRI, lumbar spine Chronic low back pain Elevated WBC count Numbness and tingling of both legs Gait abnormality Postoperative pain after spinal surgery Health care maintenance Diastolic dysfunction LVH (left ventricular hypertrophy) severe Right bundle branch block (RBBB) with left anterior fascicular block (LAFB) Abnormal EKG Lumbar spinal stenosis (Acute 04/19/14) Medical History Neurogenic claudication due to lumbar spinal stenosis Fall Hypokalemia Elevated CPK Tobacco dependence Lumbar spinal stenosis Medical non-compliance Psoas abscess Lower back pain Discitis Psoas abscess Encephalopathy Rib pain on left side Hyperglycemia Blood loss anemia HTN (hypertension) LVH (left ventricular hypertrophy) Rib fracture left sided, remotely, healed without intervention- does have residual pain over area Obesity Osteoarthritis Hypertension Surgical History History of arthroscopy of shoulder left History of knee replacement right History of back surgery x5 total S/P TKR (total knee replacement) Family History Denies family history of Ovarian cancer Prostate cancer Myocardial infarction Breast cancer Colorectal cancer Social History Smoking Status: Current every day smoker Tobacco Type: Cigarettes Second Hand Exposure: Yes; Do You Dip or Chew Tobacco: No; Hx Alcohol Use: Yes Alcohol type: beer Hx Substance Use: Yes Prescribed Medications: Marijuana Last Used Substance: Days (ago) Last Used Substance Other:: UDS + cocaine Preferred Language: Bangladeshi Communication Ability: Effective Director Of Email Marketing Required: No Beliefs That Will Affect Care: None marital status: Single Current Living Situation: Alone Current Living Situation Comment: Patient lives alone in an apartment. Expressed that his housing is unsafe current occupational status: unemployed Feels Safe at Home: Declines to Answer Dental Care, Regularly: No Physical Activity Frequency: Does not Exercise Seatbelt Use: always Assistive Devices: Walker Allergies Allergies Allergy/AdvReac Type Severity Reaction Status Date / Time gabapentin Allergy Severe SHORT OF Verified 03/07/24 20:38 BREATH cat dander Allergy Intermediate itchy Verified 03/07/24 20:38 eyes, sneezing codeine AdvReac Intermediate GI upset Verified 03/07/24 20:38 Home Meds Home Medications Medication Instructions Recorded Confirmed duloxetine 60 mg capsule,delayed 60 mg PO DAILY 01/26/23 03/07/24 release Previous Rx's Medication Instructions Recorded metoprolol tartrate 50 mg tablet 50 mg PO BID #60 tabs 01/29/23 tramadol 50 mg tablet 50 mg PO Q6H PRN pain #30 tabs 01/29/23 doxycycline hyclate 100 mg capsule 100 mg PO BID #30 caps 02/20/23 cyclobenzaprine 10 mg tablet 10 mg PO TID PRN muscle spasm #30 05/13/23 tabs ferrous gluconate 324 mg (38 mg 324 mg PO DAILY #30 tabs 12/27/23 iron) tablet Results & Data (ED) Vital Signs Vital Signs - 24 hr 05/31/24 08:23 05/31/24 08:32 05/31/24 11:56 Temperature 36.8 C Temperature Source Oral Pulse Rate 77 80 Pulse Rate [Apical] 78 Respiratory Rate 18 14 Respiratory Effort / Characteristics Non-Labored Spontaneous Respiratory Depth Normal Blood Pressure 148/89 H Blood Pressure [Left Arm] 166/102 H Blood Pressure Mean 108 Blood Pressure Mean [Left Arm] 123 Pulse Oximetry 96 97 Oxygen Delivery Method Room Air Room Air Sepsis Recent Fever Within 48 Hours No Sepsis New/Unexplained Change in Mental Status N/A Sepsis Action Taken by Nursing No Action Required 05/31/24 13:27 Temperature Temperature Source Pulse Rate 85 Pulse Rate [Apical] Respiratory Rate Respiratory Effort / Characteristics Respiratory Depth Blood Pressure Blood Pressure [Left Arm] Blood Pressure Mean Blood Pressure Mean [Left Arm] Pulse Oximetry Oxygen Delivery Method Sepsis Recent Fever Within 48 Hours Sepsis New/Unexplained Change in Mental Status Sepsis Action Taken by Nursing Laboratory Data 05/31/24 13:02 05/31/24 13:02 Lab Results 05/31/24 Range/Units 13:02 WBC 10.93 H (4.8-10.8) K/ul RBC 4.83 (4.70-6.10) M/uL Hgb 11.5 L (14.0-18.0) g/dl Hct 37.7 L (42.0-52.0) % MCV 78.1 L (80.0-100.0) fL MCH 23.8 L (25.0-34.0) pg MCHC 30.5 L (32.0-36.0) g/dL RDW Std Deviation 60.6 H (36.4-46.3) fL RDW Coeff of Adele 21.5 H (11.5-14.5) % Plt Count 299 (130-400) K/uL MPV 8.9 L (9.4-12.4) fL Immature Gran % (Auto) 0.4 % Neut % (Auto) 73.2 % Lymph % (Auto) 14.9 % Bladen % (Auto) 8.2 % Eos % (Auto) 2.8 % Baso % (Auto) 0.5 % Neut # (Auto) 8.00 H (1.40-6.50) K/uL Lymph # (Auto) 1.63 (1.20-3.40) K/uL Bladen # (Auto) 0.90 H (0.11-0.59) K/uL Eos # (Auto) 0.31 (0.00-0.50) K/uL Baso # (Auto) 0.05 (0.00-0.20) K/uL Immature Gran # (Auto) 0.04 (0.01-0.20) K/uL Anisocytosis Present Ovalocytes 1+ Sodium 136 (136-145) mmol/L Potassium 4.0 (3.5-5.1) mmol/L Chloride 106 (98-107) mmol/L Carbon Dioxide 24 (21-32) mmol/L Anion Gap 6 (3-11) BUN 18 (6-23) mg/dl Creatinine 0.65 (0.6-1.4) mg/dl Est Cr Clr Drug Dosing 98.6 ml/min Est GFR ( Amer) 118.3 ml/min Est GFR (Non-Af Amer) 102.1 ml/min BUN/Creatinine Ratio 27.7 H (10-20) Glucose 87 (70-99(Fasting)) mg/dl Calcium 9.2 (8.6-10.3) mg/dl Total Bilirubin 0.5 (0.2-1.0) mg/dl AST 27 (13-39) U/L ALT 15 (7-52) U/L Alkaline Phosphatase 82 (34-104) U/L Total Protein 6.5 (6.0-8.3) gm/dl Albumin 3.7 (3.4-5.0) gm/dl Globulin 2.8 (2.5-4.0) gm/dl Albumin/Globulin Ratio 1.3 (0.9-2) Administered Medications Discontinued Medications Acetaminophen (Acetaminophen 500 Mg Tab) 1,000 mg PO NOW STA Stop: 05/31/24 09:29 Last Admin: 05/31/24 09:58 Dose: Not Given Documented By: BEN Imaging Data Radiologist's Impression: Lumbar Spine CT 05/31/24 08:[address] DOSE: 1728.17 mGy.cm HISTORY: low back pain TECHNIQUE: Multiaxial CT images of the lumbar spine were performed and reformatted in the sagittal and coronal plane without the use of contrast. A dose lowering technique was utilized adhering to the principles of ALARA. COMPARISON: Lumbar spine CT 01/26/2023. FINDINGS: Old, healed right posterior rib fractures. There are few punctate bilateral renal calculi. Posterior decompression fusion from L2 through S1 with pedicle screws and rods are again noted. The bilateral L3 pedicle screws have been removed. Periprosthetic lucency at the bilateral L2 pedicle screws remains unchanged. There is chronic compression fracture at L1 with erosion of the majority of the L1 vertebral body which is similar to the prior study. Super endplate erosive changes at L2 are also not significantly changed. There is associated 9 mm of retropulsion of the posterior cortex of L1 which is similar to the prior study. This results in moderate to severe central canal narrowing at the L1-L2 level. Erosive involving the majority the L1 vertebral body and superior endplate of L2 are consistent with a chronic osteomyelitis. Minimal erosive changes at the inferior endplate of T12 are also noted. No acute fractures within the lumbar spine. Paravertebral soft tissue edema from the T12- L2 levels remains unchanged. IMPRESSION: 1. No acute fractures within the lumbar spine. 2. Postoperative changes as described above. 3. Above findings consistent with a chronic discitis/osteomyelitis at the L1-L2 level which is similar to the prior study. 4. There is 9 mm of retropulsion of the posterior cortex/fragment of L1 resulting in moderate to severe central canal narrowing. This is similar to the prior study. ACT 112: Negative or not required by law. Electronically signed by: Zia Mendieta M.D. 05/31/2024 1:[address] 05/31/24 08:[address] DOSE: HISTORY: R hip pain TECHNIQUE: Multiaxial CT images of the pelvis were performed and reformatted in the sagittal and coronal plane without the use of contrast. A dose lowering technique was utilized adhering to the principles of ALARA. COMPARISON: Abdomen and pelvis CT 01/26/2023. FINDINGS: The lumbar spine will be reported on the same day dedicated lumbar spine CT. Posterior fusion hardware noted within the lumbar spine. There are 3 left sacroiliac screws also noted. The hardware appears intact. No abnormal periprosthetic lucency. No acute fracture or dislocation within the pelvis or hips. The sacrum is intact. Mild osteoarthritis within the bilateral hips and sacroiliac joints. No significant hip effusions. No pelvic hematoma or pelvic free fluid. Mild bladder wall thickening is likely due to chronic outlet obstruction from the mildly enlarged prostate gland. No pelvic lymphadenopathy. The visualized loops of bowel show no wall thickening or obstruction. IMPRESSION: No fracture or dislocation within the pelvis or hips. ACT 112: Negative or not required by law. Electronically signed by: Zia Mendieta M.D. 05/31/2024 1:29 PM Hip/Pelvis X-Ray 05/31/24 09:59 XR hip RT 2V w pelvis CLINICAL HISTORY: R hip pain COMPARISON STUDY: Right hip 08/02/2022. FINDINGS: No fracture or dislocation within the pelvis or hips. Postoperative changes within the lower lumbar spine and left sacroiliac joint. Soft tissues are unremarkable. Mild osteoarthritis within the bilateral hips. IMPRESSION: No fracture or dislocation within the pelvis or hips. ACT 112: Negative or not required by law. Electronically signed by: Zia Mendieta M.D. 05/31/2024 10:45 AM Discharge Plan Visit Data Chief Complaint: Hip Pain ED Provider: Alyce Hidalgo Discharge Problem: Acute pain of right hip, Ambulatory dysfunction Patient Disposition: Home - Self-Care Discharge Instructions Ginny/Other Patient Handouts: ED Back Care Tips Activity Restrictions/Additional Instructions: It was recommended that you get blood work and imaging done during your visit in the emergency department today, but you refused the CT scan and were refusing blood work unless it was obtained from your lower extremity. As discussed, this is a high risk of infection to take blood work from your feet. Recommend staying well-hydrated for the next few days and taking Tylenol and ibuprofen for pain management. You should follow-up closely with your primary care provider. You can return to the emergency department if you develop fever, worsening pain, new numbness or tingling or weakness of your extremities, or any new or worsening symptoms. Forms Stand Alone Forms: My [facility], Important Visit Information Prescriptions Prescriptions: No Action cyclobenzaprine 10 mg tablet 10 mg PO TID PRN (Reason: muscle spasm) Qty: 30 0RF Rx Instructions: PER EXT MED HX--LAST FILLED 08/01/23 FOR 30 DAYS/60 TABS. doxycycline hyclate 100 mg capsule 100 mg PO BID Qty: 30 0RF Rx Instructions: PER EXT MED HX--LAST FILLED 08/01/23 FOR 30 DAYS/60 CAPS. duloxetine 60 mg capsule,delayed release(DR/EC) 60 mg PO DAILY Rx Instructions: PER EXT MED HX--LAST FILLED 03/29/23 FOR 90 DAYS/90 CAPS metoprolol tartrate 50 mg Tablet 50 mg PO BID Qty: 60 0RF Rx Instructions: NO HX OF THIS MED ON EXT MED HX. tramadol 50 mg Tablet 50 mg PO Q6H PRN (Reason: pain) Qty: 30 0RF Rx Instructions: PER EXT MED HX--LAST FILLED 08/01/23 FOR 7 DAYS/32 TABS. ferrous gluconate 324 mg (38 mg iron) tablet 324 mg PO DAILY Qty: 30 0RF Referrals Referrals: PCP,NO [Primary Care Provider] -
[2024-05-31] MEDS: ACETAMINOPHEN 500 MG TAB PO STA (09:58)
--- NOTE | 2024-05-31 10:47 | XRay Report ---
XR hip RT 2V w pelvis CLINICAL HISTORY: R hip pain COMPARISON STUDY: Right hip 08/02/2022. FINDINGS: No fracture or dislocation within the pelvis or hips. Postoperative changes within the lowe r lumbar spine and left sacroiliac joint. Soft tissues are unremarkable. Mild osteoarthritis within t he bilateral hips. IMPRESSION: No fracture or dislocation within the pelvis or hips. ACT 112: Negative or not required by law. Electronically signed by: Zia Mendieta M.D. 05/31/2024 10:45 AM
[2024-05-31 13:23] LABS: Basophils # (auto) 0.05 K/uL (0.00-0.20); Basophils % (auto) 0.5 %; Eosinophils # (auto) 0.31 K/uL (0.00-0.50); Eosinophils % (auto) 2.8 %; Hematocrit (blood only) 37.7 % (42.0-52.0); Hemoglobin 11.5 g/dl (14.0-18.0); Immature Granulocytes # (auto) 0.04 K/uL (0.01-0.20); Immature Granulocytes % (auto) 0.4 %; Lymphocytes # (auto) 1.63 K/uL (1.20-3.40); Lymphocytes % (auto) 14.9 %; Mean Corpuscular Hemoglobin 23.8 pg (25.0-34.0); Mean Corpuscular Hgb Conc 30.5 g/dL (32.0-36.0); Mean Corpuscular Volume 78.1 fL (80.0-100.0); Mean Platelet Volume 8.9 fL (9.4-12.4); Monocytes % (auto) 8.2 %; Neutrophils % (auto) 73.2 %; Platelet Count 299 K/uL (130-400); RDW Coefficient of Variation 21.5 % (11.5-14.5); RDW Standard Deviation 60.6 fL (36.4-46.3); Red Blood Count 4.83 M/uL (4.70-6.10); White Blood Count 10.93 K/ul (4.8-10.8)
--- NOTE | 2024-05-31 13:31 | CT Scan Report ---
LUMBAR SPINE CT CT DOSE: 1728.17 mGy.cm HISTORY: low back pain TECHNIQUE: Multiaxial CT images of the lumbar spine were performed and reformatted in the sagittal an d coronal plane without the use of contrast. A dose lowering technique was utilized adhering to the principles of ALARA. COMPARISON: Lumbar spine CT 01/26/2023. FINDINGS: Old, healed right posterior rib fractures. There are few punctate bilateral renal calculi. Posterior decompression fusion from L2 through S1 with pedicle screws and rods are again noted. The b ilateral L3 pedicle screws have been removed. Periprosthetic lucency at the bilateral L2 pedicle scre ws remains unchanged. There is chronic compression fracture at L1 with erosion of the majority of the L1 vertebral body which is similar to the prior study. Super endplate erosive changes at L2 are also not significantly changed. There is associated 9 mm of retropulsion of the posterior cortex of L1 wh ich is similar to the prior study. This results in moderate to severe central canal narrowing at the L1-L2 level. Erosive involving the majority the L1 vertebral body and superior endplate of L2 are con sistent with a chronic osteomyelitis. Minimal erosive changes at the inferior endplate of T12 are als o noted. No acute fractures within the lumbar spine. Paravertebral soft tissue edema from the T12-L2 levels remains unchanged. IMPRESSION: 1. No acute fractures within the lumbar spine. 2. Postoperative changes as described above. 3. Above findings consistent with a chronic discitis/osteomyelitis at the L1-L2 level which is simila r to the prior study. 4. There is 9 mm of retropulsion of the posterior cortex/fragment of L1 resulting in moderate to ramses re central canal narrowing. This is similar to the prior study. ACT 112: Negative or not required by law. Electronically signed by: Zia Mendieta M.D. 05/31/2024 1:29 PM
--- NOTE | 2024-05-31 13:31 | CT Scan Report ---
PELVIS CT CT DOSE: HISTORY: R hip pain TECHNIQUE: Multiaxial CT images of the pelvis were performed and reformatted in the sagittal and tahir nal plane without the use of contrast. A dose lowering technique was utilized adhering to the princi ples of SONIYA. COMPARISON: Abdomen and pelvis CT 01/26/2023. FINDINGS: The lumbar spine will be reported on the same day dedicated lumbar spine CT. Posterior fusi on hardware noted within the lumbar spine. There are 3 left sacroiliac screws also noted. The hardwar e appears intact. No abnormal periprosthetic lucency. No acute fracture or dislocation within the pel vis or hips. The sacrum is intact. Mild osteoarthritis within the bilateral hips and sacroiliac joint s. No significant hip effusions. No pelvic hematoma or pelvic free fluid. Mild bladder wall thickenin g is likely due to chronic outlet obstruction from the mildly enlarged prostate gland. No pelvic lymp hadenopathy. The visualized loops of bowel show no wall thickening or obstruction. IMPRESSION: No fracture or dislocation within the pelvis or hips. ACT 112: Negative or not required by law. Electronically signed by: Zia Mendieta M.D. 05/31/2024 1:29 PM
[2024-05-31 13:41] LABS: Anisocytosis Present; Ovalocytes 1+
[2024-05-31 13:44] LABS: Albumin Globulin Ratio 1.3 (0.9-2); Albumin Level 3.7 gm/dl (3.4-5.0); BUN Creatinine Ratio 27.7 (10-20); Bilirubin,Total 0.5 mg/dl (0.2-1.0); Calcium 9.2 mg/dl (8.6-10.3); Creatinine Clr Calc Pharmacy 98.6 ml/min; Est GFR (African American) 118.3 ml/min; Est GFR (Non-African American) 102.1 ml/min; Globulin 2.8 gm/dl (2.5-4.0); Total Protein 6.5 gm/dl (6.0-8.3)
--- NOTE | 2024-05-31 14:40 | History & Physical Report ---
Date of Service May 31, 2024 Assessment & Plan (1) Ambulatory dysfunction: Plan: Admit to med/surge Currently stable nontoxic-appearing Patient presented to the ED this a.m. via EMS after waking on the bed she slept on overnight with acute right lower extremity/right hip pain causing ambulatory dysfunction. No acute trauma on exam or extensive imaging, pain appears more consistent with musculoskeletal pain likely due to irritation from sleeping on the bench overnight Patient reportedly ran out of his normal prescriptions approximately 2 weeks ago which is likely exacerbating this issue Will start scheduled Tylenol, as needed ibuprofen, heat PT/OT Fall precautions Regular diet Bilateral SCDs AM CBC, BMP, mag (2) Acute pain of right lower extremity: Plan: See ambulatory dysfunction (3) Homelessness: Plan: Case management consult placed (4) Osteomyelitis of vertebra: Plan: Will resume patient's chronic doxycycline twice daily (5) Tobacco dependence: Plan: Will order nicotine patch (6) Hypertension: Plan: Currently stable Will continue metoprolol Plan The patient was discussed with Dr. Barrios at the time of the admission History of Present Illness Chief Complaint: right hip/leg pain Primary Care Provider: ANYA PCP Tigre is a 64 y/o male with a PMHx of osteomyelitis on chronic abx, HTN, malnourishment, iron deficiency anemia, and polysubstance use disorder who presented to the [facility] ED on 05/31/2024 via EMS due to acute onset of right lower extremity pain causing ambulatory dysfunction. Per the ER, the patient is currently homeless and was sleeping on a bench last night. When he woke he was experiencing severe right hip/right lower extremity pain preventing him from being able to walk so his friend called EMS. He remained stable in the ED. Labs were significant for a leukocytosis of 10 with neutrophil predominance of 8, stable hemoglobin at 11.5. X-ray of the right hip and pelvis was read as negative for acute findings. CT of the pelvis was read as negative for acute findings. Lumbar spine CT was read as negative for acute fractures. Postoperative changes as described above. Above findings consistent with a chronic discitis/osteomyelitis at the L1-L2 level which is similar to prior study. There is a 9 mm of retropulsion of the posterior cortex/fragment of L1 resulting in moderate to severe central canal narrowing. This is similar to prior study. Prior to admission the patient was given ordered 1 g IV Tylenol that he refused. Patient was lying in bed in no acute distress at the time of exam. Confirms the above history. States that he is currently following with Dr. Pacheco as his PCP. Explains that he ran out of his home medication approximately 2 weeks ago. Describes his right lower extremity pain as sharp/burning started in the right hip/posterior thigh and radiating down the lateral right lower extremity. Denies recent fever, chills, chest pain, shortness of breath, abdominal pain, nausea/vomiting, dysuria/hematuria, loss of bowel or bladder function, saddle anesthesia, recent trauma. We attempted to get him to stand to see if he could safely ambulate but he was in too much pain to safely stand out of bed. He is a full code and would want his friend, Kristin Ha to make medical decisions for him if he cannot make them himself. Please refer to Dr. Barrios's attestation for any changes to the treatment plan Allergies Allergy/AdvReac Type Severity Reaction Status Date / Time gabapentin Allergy Severe SHORT OF Verified 05/31/24 15:35 BREATH cat dander Allergy Intermediate itchy Verified 05/31/24 15:35 eyes, sneezing codeine AdvReac Intermediate GI upset Verified 05/31/24 15:35 Home Medications Medication Instructions Recorded Confirmed Type cyclobenzaprine 10 mg tablet 10 mg PO TID PRN muscle spasms 05/31/24 05/31/24 History Past Med/Surg History Problem List Constipation Bursitis of right hip Fall Polysubstance abuse Neurogenic claudication due to lumbar spinal stenosis Degenerative lumbar spinal stenosis Acute pain of right lower extremity Ambulatory dysfunction (Acute) Acute pain of right hip (Acute) Left against medical advice Bilateral lower extremity edema Contact with metalworking machinery as cause of accidental injury Polysubstance use disorder Osteomyelitis of vertebra Malnutrition Wernicke encephalopathy MENDOZA (dyspnea on exertion) (Acute) Iron deficiency anemia Closed T3 fracture (Acute) Homeless (Acute) Closed fracture of left zygomatic arch (Acute) Homelessness Anemia (Acute) Paranoia Altered mental status (Acute) Confusion Rupture of proximal biceps tendon Left arm cellulitis Hyperglycemia Screening for osteoporosis Insomnia Hardware failure Abnormal MRI, lumbar spine Chronic low back pain Elevated WBC count Numbness and tingling of both legs Gait abnormality Postoperative pain after spinal surgery Diastolic dysfunction LVH (left ventricular hypertrophy) severe Right bundle branch block (RBBB) with left anterior fascicular block (LAFB) Abnormal EKG Lumbar spinal stenosis (Acute 04/19/14) Medical History Hypokalemia Elevated CPK Tobacco dependence Lumbar spinal stenosis Medical non-compliance Psoas abscess Lower back pain Discitis Psoas abscess Encephalopathy Rib pain on left side Hyperglycemia Blood loss anemia HTN (hypertension) LVH (left ventricular hypertrophy) Rib fracture left sided, remotely, healed without intervention- does have residual pain over area Obesity Osteoarthritis Hypertension Surgical History History of arthroscopy of shoulder left History of knee replacement right History of back surgery x5 total S/P TKR (total knee replacement) Family History Denies family history of Ovarian cancer Prostate cancer Myocardial infarction Breast cancer Colorectal cancer Social History Smoking Status: Current every day smoker Tobacco Type: Cigarettes Second Hand Exposure: Yes; Do You Dip or Chew Tobacco: No; Hx Alcohol Use: Yes Alcohol type: beer Hx Substance Use: Yes Prescribed Medications: Marijuana Last Used Substance: Days (ago) Last Used Substance Other:: UDS + cocaine Preferred Language: Mosotho Communication Ability: Effective 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 Expressed that his housing is unsafe current occupational status: unemployed Feels Safe at Home: Declines to Answer Dental Care, Regularly: No Physical Activity Frequency: Does not Exercise Seatbelt Use: always Assistive Devices: Cane Physical Exam Physical Exam: Physical Exam: General: In no acute distress, stated age, chronically ill-appearing, malnourished, poor hygiene HEENT: Normocephalic, atraumatic, no scleral icterus, pupils around round, symmetrical, and reactive to light, dry mucus membranes, trachea midline, no thyromegaly Chest/Pulm: No respiratory distress, symmetrical chest expansion, clear breath sounds throughout Cardiac: RRR, no murmurs noted Abdomen: Negative for ascites and bruising, normoactive bowel sounds, soft, non-tender to palpation throughout Musculoskeletal: Symmetrical and without signs of acute trauma, upper extremities with full ROM, no acute trauma or ROM limitation of the left lower extremity, significant pain on palpation of the right lateral hip/posterior thigh without crepitus or acute trauma, significant pain with straight leg raise, symmetric strength in the bilateral lower extremities Extremities: Radial, dorsalis pedis, and posterior tibial pulses are intact and symmetrical, no edema noted in the BL LE's Skin: Warm, dry, no rashes , lesions, or scars noted Neuro: Alert and oriented to person, place, month, year, and president, no focal defects, no tremors noted Psych: No acute distress, intermittently agitated and unwilling to interact with staff but will cooperate when redirected Results & Data Results & Data Vital Signs (Past 12 Hours) Vital Signs Temp Pulse Pulse Resp BP BP Pulse Ox 05/31/24 14:32 82 20 157/100 H 96 05/31/24 13:27 85 05/31/24 11:56 78 14 166/102 H 97 05/31/24 08:32 80 05/31/24 08:23 36.8 C 77 18 148/89 H 96 O2 Del Method 05/31/24 14:32 Room Air 05/31/24 13:27 05/31/24 11:56 Room Air 05/31/24 08:32 05/31/24 08:23 Room Air Laboratory Results Abnormal lab results 05/31/24 Range/Units 13:02 WBC 10.93 H (4.8-10.8) K/ul Hgb 11.5 L (14.0-18.0) g/dl Hct 37.7 L (42.0-52.0) % MCV 78.1 L (80.0-100.0) fL MCH 23.8 L (25.0-34.0) pg MCHC 30.5 L (32.0-36.0) g/dL RDW Std Deviation 60.6 H (36.4-46.3) fL RDW Coeff of Adele 21.5 H (11.5-14.5) % MPV 8.9 L (9.4-12.4) fL Neut # (Auto) 8.00 H (1.40-6.50) K/uL [place] # (Auto) 0.90 H (0.11-0.59) K/uL BUN/Creatinine Ratio 27.7 H (10-20) Diagnostic Findings Lumbar Spine CT 05/31/24 08:[address] DOSE: 1728.17 mGy.cm HISTORY: low back pain TECHNIQUE: Multiaxial CT images of the lumbar spine were performed and reformatted in the sagittal and coronal plane without the use of contrast. A dose lowering technique was utilized adhering to the principles of ALARA. COMPARISON: Lumbar spine CT 01/26/2023. FINDINGS: Old, healed right posterior rib fractures. There are few punctate bilateral renal calculi. Posterior decompression fusion from L2 through S1 with pedicle screws and rods are again noted. The bilateral L3 pedicle screws have been removed. Periprosthetic lucency at the bilateral L2 pedicle screws remains unchanged. There is chronic compression fracture at L1 with erosion of the majority of the L1 vertebral body which is similar to the prior study. Super endplate erosive changes at L2 are also not significantly changed. There is associated 9 mm of retropulsion of the posterior cortex of L1 which is similar to the prior study. This results in moderate to severe central canal narrowing at the L1-L2 level. Erosive involving the majority the L1 vertebral body and superior endplate of L2 are consistent with a chronic osteomyelitis. Minimal erosive changes at the inferior endplate of T12 are also noted. No acute fractures within the lumbar spine. Paravertebral soft tissue edema from the T12- L2 levels remains unchanged. IMPRESSION: 1. No acute fractures within the lumbar spine. 2. Postoperative changes as described above. 3. Above findings consistent with a chronic discitis/osteomyelitis at the L1-L2 level which is similar to the prior study. 4. There is 9 mm of retropulsion of the posterior cortex/fragment of L1 resulting in moderate to severe central canal narrowing. This is similar to the prior study. ACT 112: Negative or not required by law. Electronically signed by: Zia Mendieta M.D. 05/31/2024 1:[address] 05/31/24 08:[address] DOSE: HISTORY: R hip pain TECHNIQUE: Multiaxial CT images of the pelvis were performed and reformatted in the sagittal and coronal plane without the use of contrast. A dose lowering technique was utilized adhering to the principles of ALARA. COMPARISON: Abdomen and pelvis CT 01/26/2023. FINDINGS: The lumbar spine will be reported on the same day dedicated lumbar spine CT. Posterior fusion hardware noted within the lumbar spine. There are 3 left sacroiliac screws also noted. The hardware appears intact. No abnormal periprosthetic lucency. No acute fracture or dislocation within the pelvis or hips. The sacrum is intact. Mild osteoarthritis within the bilateral hips and sacroiliac joints. No significant hip effusions. No pelvic hematoma or pelvic free fluid. Mild bladder wall thickening is likely due to chronic outlet obstruction from the mildly enlarged prostate gland. No pelvic lymphadenopathy. The visualized loops of bowel show no wall thickening or obstruction. IMPRESSION: No fracture or dislocation within the pelvis or hips. ACT 112: Negative or not required by law. Electronically signed by: Zia Mendieta M.D. 05/31/2024 1:29 PM Hip/Pelvis X-Ray 05/31/24 09:59 XR hip RT 2V w pelvis CLINICAL HISTORY: R hip pain COMPARISON STUDY: Right hip 08/02/2022. FINDINGS: No fracture or dislocation within the pelvis or hips. Postoperative changes within the lower lumbar spine and left sacroiliac joint. Soft tissues are unremarkable. Mild osteoarthritis within the bilateral hips. IMPRESSION: No fracture or dislocation within the pelvis or hips. ACT 112: Negative or not required by law. Electronically signed by: Zia Mendieta M.D. 05/31/2024 10:45 AM Code Status & VTE Plan Code Status Full code VTE Prophylaxis Plan VTE Prophylaxis will be ordered: Yes Supervising Physician Co-Signing Physician Notes I personally saw and examined the patient. I verified all berry points and agree with Jensen Parnell PA-C with the following exceptions and/or additions: 64 year old male presents to the ER with inability to walk after sleeping rough on a bench O/E HS RRR, no murmurs, Chest CTAB, Abdo SNT, right lateral leg pain from hip to knee worse on palpation of straight leg raise, unable to bear A/P Right lower extremity pain - causing ambulatory dysfunction, no back pain, no fracture or dislocation of pelvis on CT, no acute change in chronic discitis/osteo of L1-L2 since similar study. Suspect more vastus lateralis strain from his sleeping on it given pain on light palpation over that muscle. Acetaminophen, ibuprofen, avoid opiates, PT/OT PG Care Time/CCT Total # of Minutes Spent Total Time Spent with Patient: Total time spent is greater than 50% in coordination of care (as documented) at patient's floor/unit and/or counseling patient: Coding [place] [address] INT INP/OBS CARE 2/55MIN Patient Type Established Medical Decision Making High Complexity Diagnoses Ambulatory dysfunction R26.2 Acute pain of right lower extremity M79.604 Homelessness Z59.00 Osteomyelitis of vertebra M46.20 Tobacco dependence F17.200 Hypertension I10
[2024-05-31 15:01] LABS: Magnesium 2.1 mg/dl (1.7-2.4)
[2024-05-31] MEDS: DULoxetine HCL 60 MG CAP PO STA (15:46)
[2024-05-31] MEDS: PANTOprazole 40 MG TAB PO STA (15:47)
[2024-05-31] MEDS: METOPROLOL TARTRATE 50 MG TAB PO STA (15:48)
[2024-05-31] MEDS: IBUPROFEN 200 MG TAB PO STA (15:49)
[2024-05-31] MEDS: CYCLOBENZAPRINE HCL 10 MG TAB PO STA (15:54)
[2024-05-31 15:59] LABS: Amphetamines+Metham, Urine Neg (Neg); Barbiturates, Urine Neg (Neg); Benzodiazepine, Urine Neg (Neg); Cocaine, Urine Pos (Neg); Fentanyl, Urine Neg (Neg); MDMA (Ecstacy), Urine Neg (Neg); Marijuana, Urine Pos (Neg); Methadone, Urine Neg (Neg); Opiate, Urine Neg (Neg); Phencyclidine, Urine Neg (Neg)
[2024-05-31] MEDS: LACTATED RINGER'S 1,000 ML IV ONE (16:05)
[2024-05-31] MEDS ORDERED: NAPROXEN 375 MG TAB PO PRN (17:35)
[2024-05-31] MEDS ORDERED: IBUPROFEN 200 MG TAB PO PRN (18:00)
[2024-05-31] MEDS: ACETAMINOPHEN 325 MG TAB PO SCH (18:37)
[2024-05-31] MEDS: NICOTINE 21 MG/24 HR TDSY TD SCH (19:42)
[2024-05-31] MEDS: DOXYCYCLINE HYCLATE 100 MG CAP PO SCH (21:50)
[2024-06-01] MEDS: PANTOprazole 40 MG TAB PO SCH (08:22)
[2024-06-01 11:10] LABS: Basophils # (auto) 0.03 K/uL (0.00-0.20); Basophils % (auto) 0.3 %; Eosinophils % (auto) 1.7 %; Hematocrit (blood only) 35.4 % (42.0-52.0); Hemoglobin 10.7 g/dl (14.0-18.0); Immature Granulocytes # (auto) 0.06 K/uL (0.01-0.20); Immature Granulocytes % (auto) 0.5 %; Lymphocytes # (auto) 1.28 K/uL (1.20-3.40); Lymphocytes % (auto) 10.8 %; Mean Corpuscular Hemoglobin 23.5 pg (25.0-34.0); Mean Corpuscular Hgb Conc 30.2 g/dL (32.0-36.0); Mean Corpuscular Volume 77.6 fL (80.0-100.0); Mean Platelet Volume 9.2 fL (9.4-12.4); Monocytes # (auto) 0.86 K/uL (0.11-0.59); Monocytes % (auto) 7.3 %; Neutrophils # (auto) 9.43 K/uL (1.40-6.50); Neutrophils % (auto) 79.4 %; Platelet Count 295 K/uL (130-400); RDW Coefficient of Variation 21.4 % (11.5-14.5); RDW Standard Deviation 59.7 fL (36.4-46.3); Red Blood Count 4.56 M/uL (4.70-6.10); White Blood Count 11.86 K/ul (4.8-10.8)
[2024-06-01 11:23] LABS: BUN Creatinine Ratio 27.1 (10-20); Calcium 8.3 mg/dl (8.6-10.3); Creatinine Clr Calc Pharmacy 91.5 ml/min; Est GFR (African American) 114.8 ml/min; Potassium 4.2 mmol/L (3.5-5.1)
[2024-06-01 11:39] LABS: Anisocytosis Present; Ovalocytes 1+
--- NOTE | 2024-06-01 16:42 | Hospitalist Progress Note ---
Date of Service June 01, 2024 Assessment & Plan (1) Ambulatory dysfunction: Plan: Patient presented to the ED via EMS after waking on the bed she slept on overnight with acute right lower extremity/right hip pain causing ambulatory dysfunction. No acute trauma on exam or extensive imaging, pain appears more consistent with musculoskeletal pain likely due to irritation from sleeping on the bench overnight Patient reportedly ran out of his normal prescriptions approximately 2 weeks ago which is likely exacerbating this issue Patient has been refusing all pain modalities offered - tylenol, nsaids, heat, ice - also does not want narcotics but asking for tramadol. Not ordered with + cocacine in system and refusal to try anything else first PT/OT - pt also refused these 06/01 (2) Acute pain of right lower extremity: Plan: See ambulatory dysfunction (3) Homelessness: Plan: Case management consult placed - patient already on the list for out of the cold (4) Osteomyelitis of vertebra: Plan: Will resume patient's chronic doxycycline twice daily slight elevation in WBC is chronic Follows Dr. Pacheco - has not seen in months, nurse navigator has reached out for most recent note/updates Plan Chronic stable medical conditions: * HTN - continue metoprolol * Tobacco use - nicotine patch Dispo: continued inpatient stay, pain is improving without intervention which is likely more related to MSK pain from laying on bench. hopefully more agreeable to participate in therapy tomorrow Admission and Anticipated Discharge Date Admission Date: May 31, 2024 Subjective Patient seen earlier this morning after breakfast, very frustrated that he has not seen a doctor, even when I tried to explain my role. Patient refusing OTC pain medication because he says it is not effective. also does not want opiates or narcotics because he does not want to get addicted. Later he asked for tramadol - when i tried to explain that this was a narcotic he did not want to believe me Declined discussing other drugs he was using on the street but did not deny this Has not had his antibiotics in a few weeks because he cannot afford them Review of Systems Review of Systems: All systems reviewed & are unremarkable except as noted in Subjective Physical Exam Physical Exam: General: NAD, VS as above Resp: normal respiratory effort, lungs clear to auscultation CV: RRR, no murmur, Extremities: Moves all extremities, reports significant pain with movement of right toes Neuro: A&O x3, Skin: intact, no lesions noted Results & Data Results & Data Vital Signs (Past 12 Hours) Vital Signs Temp Pulse Pulse Resp BP Pulse Ox O2 Del Method 06/01/24 13:24 36.5 C 82 18 169/96 H 96 Room Air 06/01/24 08:12 36.4 C L 79 18 160/91 H 96 Room Air Laboratory Results CBC and chemistry reviewed PG Care Time/CCT Total # of Minutes Spent Total Time Spent with Patient: Total time spent is greater than 50% in coordination of care (as documented) at patient's floor/unit and/or counseling patient: Coding Level of Care Code 67271 SUB INP/OBS CARE 3/50MIN Diagnoses Ambulatory dysfunction R26.2 Acute pain of right lower extremity M79.604 Homelessness Z59.00 Osteomyelitis of vertebra M46.20
--- NOTE | 2024-06-02 20:25 | Hospitalist Progress Note ---
Date of Service June 02, 2024 Assessment & Plan (1) Ambulatory dysfunction: Plan: 2nd to RLE pain/weakness Likely due to severe spinal stenosis at L1-L2 which is a chronic diagnosis for him (in 08/2022 I had him as a patient and he was having issues with the RLE the n as well) Doubt right hip OA or psoas abscess causing the ambulatory dysfunction needs current MRI l-spine in light of previous discitis MRI w/ and w/o contrast ordered start tramadol 50mg q4h prn pain (2) Acute pain of right lower extremity: Plan: see above #1 (3) Homelessness: Plan: case management assisting with placement and/or other options (4) Osteomyelitis of vertebra: Plan: cont doxycycline twice daily for chronic prophylaxis Follows with Dr. Malina Pacheco - has not seen in many months needs updated MRI lumbar spine - see #1 above (5) Degenerative lumbar spinal stenosis: Plan: likely cause of RLE pain/weakness (6) Neurogenic claudication due to lumbar spinal stenosis: Plan: consider gabapentin tramadol prn pain Plan Chronic stable medical conditions: * HTN - continue metoprolol * Tobacco use - nicotine patch Admission and Anticipated Discharge Date Admission Date: May 31, 2024 Subjective c/o severe right lateral hip and right groin pain some radiation down the right leg at times - stops above the R ankle any movement makes the pain worse right hip flexion is very weak very difficult to walk because of the pain & weakness denies left leg pain eating well denies fevers Review of Systems Review of Systems: gen - no fevers or chills cv - no cp, no orthopnea pulm - no dyspnea Physical Exam Physical Exam: gen - laying flat in bed; uncomfortable if he tries to move the right leg mouth - MMM heart - RRR, s1 s2 lungs - CTA b/l abd - soft NT ND BS+; mass vs lipoma vs free floating ribs L lower costal margin ext - no edema, pulses 2+ b/l musculo - right hip flexion strength 2-3/5; distal foot dorsiflexion/plantarflexion 5/5 on right, 5/5 on left; passive ROM of right hip leads to pain in right groin Results & Data Results & Data Vital Signs (Past 12 Hours) Vital Signs Temp Pulse Resp BP Pulse Ox O2 Del Method 06/02/24 15:23 36.6 C 81 16 148/86 H 96 Room Air Laboratory Results Laboratory Results - last 48 hr 06/01/24 10:36 WBC 11.86 H RBC 4.56 L Hgb 10.7 L Hct 35.4 L MCV 77.6 L MCH 23.5 L MCHC 30.2 L RDW Std Deviation 59.7 H RDW Coeff of Adele 21.4 H Plt Count 295 MPV 9.2 L Immature Gran % (Auto) 0.5 Neut % (Auto) 79.4 Lymph % (Auto) 10.8 [place] % (Auto) 7.3 Eos % (Auto) 1.7 Baso % (Auto) 0.3 Neut # (Auto) 9.43 H Lymph # (Auto) 1.28 [place] # (Auto) 0.86 H Eos # (Auto) 0.20 Baso # (Auto) 0.03 Immature Gran # (Auto) 0.06 Anisocytosis Present Ovalocytes 1+ Sodium 138 Potassium 4.2 Chloride 109 H Carbon Dioxide 25 Anion Gap 4 BUN 19 Creatinine 0.70 Est Cr Clr Drug Dosing 91.5 Est GFR ( Amer) 114.8 Est GFR (Non-Af Amer) 99.0 BUN/Creatinine Ratio 27.1 H Glucose 123 H Calcium 8.3 L PG Care Time/CCT Total # of Minutes Spent Total Time Spent with Patient: Total time spent is greater than 50% in coordination of care (as documented) at patient's floor/unit and/or counseling patient: Coding Level of Care Code 11075 SUB INP/OBS CARE 2/35MIN Diagnoses Ambulatory dysfunction R26.2 Acute pain of right lower extremity M79.604 Homelessness Z59.00 Osteomyelitis of vertebra M46.20 Degenerative lumbar spinal stenosis M48.061 Neurogenic claudication due to lumbar spinal stenosis M48.062
[2024-06-02] MEDS: traMADol HCL 50 MG TABLET PO PRN (21:33)
[2024-06-03 09:42] LABS: Cocaine, Urine 6300 ng/mL (<100); Marijuana Quant, GCMS Urine 39 ng/mL (<5)
[2024-06-03] MEDS: GADOBUTROL 65ML VIAL IV ONE (17:56)
--- NOTE | 2024-06-03 20:21 | Hospitalist Progress Note ---
Date of Service June 03, 2024 Assessment & Plan (1) Ambulatory dysfunction: Plan: 2nd to RLE pain/weakness Likely due to severe spinal stenosis at L1-L2 which is a chronic diagnosis for him (in 08/2022 I had him as a patient and he was having issues with the RLE the n as well) Doubt right hip OA or psoas abscess causing the ambulatory dysfunction - x-rays of R hip unremarkable, CT pelvis to r/o psoas abscess pending (very very low suspicion of such) increase tramadol to 100mg q4h prn pain await results of MRI l-spine and go from there consider adding back gabapentin (2) Acute pain of right lower extremity: Plan: see above #1 (3) Homelessness: Plan: case management assisting with placement and/or other options (4) Osteomyelitis of vertebra: Plan: cont doxycycline daily for chronic prophylaxis per outpatient notes from [facility] - Dr. Malina Pacheco from January 2024 - should be on levaquin 750mg qod as well needs updated MRI lumbar spine - see #1 above check CRP in am along with sed rate/cbc (5) Degenerative lumbar spinal stenosis: Plan: likely cause of RLE pain/weakness (6) Neurogenic claudication due to lumbar spinal stenosis: Plan: consider gabapentin tramadol prn pain increase the dose from 50's to 100's Plan Chronic stable medical conditions: * HTN - continue metoprolol * Tobacco use - nicotine patch Admission and Anticipated Discharge Date Admission Date: May 31, 2024 Subjective right "hip"/right groin/right leg pain persists any movement leads to pain no change in chronic low back pain he underwent his MRI today of the l-spine, results pending he is worried that his pain is from the hip itself eating well no fevers/chills no left leg pain Review of Systems Review of Systems: gen - other than the RLE pain he feels well, good appetite cv - no chest pain, no orthopnea pulm - no dyspnea GI - no N/V; moving bowels Physical Exam Physical Exam: gen - laying flat in bed, comfortable mouth - MMM heart - RRR, s1 s2, no murmur lungs - CTA b/l abd - soft NT ND BS+; free floating ribs L lower costal margin - unchanged ext - no edema, pulses 2+ b/l musculo - deferred right hip/spine exam today psych - a/o x 3 Results & Data Results & Data Vital Signs (Past 12 Hours) Vital Signs Temp Pulse Resp BP Pulse Ox O2 Del Method 06/03/24 14:35 36.5 C 86 18 157/85 H 97 Room Air Laboratory Results MRI lumbar spine completed; results pending PG Care Time/CCT Total # of Minutes Spent Total Time Spent with Patient: Total time spent is greater than 50% in coordination of care (as documented) at patient's floor/unit and/or counseling patient: Coding Level of Care Code 42380 SUB INP/OBS CARE 2/35MIN Diagnoses Ambulatory dysfunction R26.2 Acute pain of right lower extremity M79.604 Homelessness Z59.00 Osteomyelitis of vertebra M46.20 Degenerative lumbar spinal stenosis M48.061 Neurogenic claudication due to lumbar spinal stenosis M48.062
[2024-06-03] MEDS: traMADol HCL 50 MG TABLET PO PRN (21:03)
[2024-06-03] MEDS: NAPROXEN 375 MG TAB PO SCH (21:03)
--- NOTE | 2024-06-04 00:01 | CT Scan Report ---
Exam(s): CT PELVIS Without Contrast EXAM: CT Pelvis Without Intravenous Contrast CLINICAL HISTORY: Reason for exam: right groin pain; h/o kidneystones, psoas abscess. TECHNIQUE: Axial computed tomography images of the pelvis without intravenous contrast. CTDI is 16.07 mGy and DLP is 482.54 mGy-cm. Automated exposure control was utilized for the study. A dose lowering technique was utilized adhering to the principles of ALARA. COMPARISON: No relevant prior studies available. FINDINGS: Kidneys and ureters: No lower renal stones. The kidneys are not fully included in the adamb-cs-dpss. Bowel: Moderate fecal retention, correlate for constipation. Diverticulosis, without acute diverticulitis. No small bowel obstruction. No free intraperitoneal air. Appendix: Normal appendix. Bladder: Unremarkable. No stones. Bones/joints: Degenerative changes of the spine. LEFT sacroiliac joint arthrodesis. Lumbosacral fusion hardware. Diffuse osseous demineralization. No acute fracture. No dislocation. Soft tissues: Unremarkable. Vasculature: Atherosclerotic changes of the aorta. No lower abdominal aortic aneurysm. IMPRESSION: Diverticulosis, without acute diverticulitis. No small bowel obstruction. No free intraperitoneal air. Moderate fecal retention. Electronically signed by: Frank Da Silva MD 06/04/24 00:00 AM
--- NOTE | 2024-06-04 08:05 | Magnetic Resonance Report ---
LUMBAR SPINE MRI WITH AND WITHOUT CONTRAST HISTORY: RLE pain/weakness;L1-L2 discitis;h/o psoas abscess TECHNIQUE: Multiplanar multisequence MRI of the lumbar spine was performed both before and after the intravenous administration of contrast. COMPARISON: Lumbar spine CT 05/31/2024. Lumbar spine MRI 07/12/2022. FINDINGS: For the purpose of the report the L5-S1 disc space will be located on axial image 33 of 40. Posterior decompression and fusion from L2 through S1 with pedicle screws and rods. The L3 pedicle sc rews have been removed. No acute fractures identified. Chronic compression fracture at L1 with chroni c erosive changes involving the majority of the L1 vertebral body and 9 mm of retropulsion of the res idual posterior L1 vertebral body, unchanged. There is associated chronic erosive changes seen at the superior endplate of L2 also noted. This is similar to the prior study. No MRI evidence for acute di scitis/osteomyelitis. Mild epidural thickening and enhancement at the L1-L2 level without evidence fo r epidural fluid collection. No paravertebral fluid collections identified to suggest an abscess. The sacrum is intact. The conus terminates at the T12-L1 disc space level. Left-sided sacroiliac screws are noted. Small stable fluid collection within the laminectomy site at the L5 level consistent with a postoperative seroma. L1-L2: Moderate to severe central canal narrowing due to the retropulsed L1 vertebral body fragment w ithin the AP diameter measuring approximately 5.8 mm. This is similar to the prior study. There is se baljeet bilateral neural foraminal narrowing, unchanged. L2-L3: No significant central canal narrowing due to the posterior decompression. There is severe sara ateral neural foraminal narrowing which is similar to the prior study. L3-L4: No significant central canal narrowing due to the posterior decompression. There is severe sara ateral neural foraminal narrowing which is similar to the prior study. L4-L5: No significant central canal narrowing due to the posterior decompression. There is severe rig ht and moderate left neural foraminal narrowing. L5-S1: No significant central canal narrowing due to the posterior decompression. There is severe sara ateral neural foraminal narrowing. Left-sided IMPRESSION: 1. Chronic erosive changes at the L1-L2 level again noted without evidence for acute discitis/osteomy elitis. 2. Mild epidural enhancement and thickening at the L1-L2 level without evidence for an epidural fluid collection. This is similar to prior study and may represent postoperative change. 3. No evidence for a paravertebral abscess. 4. Chronic compression fracture at L1 with 9 mm of retropulsion of the residual L1 vertebral body res ulting in moderate to severe central canal narrowing at this level. This is similar to the prior stud y. 5. No acute fractures within the lumbar spine. 6. Postoperative changes as described above. ACT 112: Negative or not required by law. Electronically signed by: Zia Mendieta M.D. 06/04/2024 8:04 AM
[2024-06-04] MEDS: levoFLOXacin 750 MG TAB PO SCH (11:37)
[2024-06-04 14:43] LABS: Hematocrit (blood only) 37.8 % (42.0-52.0); Hemoglobin 11.8 g/dl (14.0-18.0); Mean Corpuscular Hemoglobin 24.2 pg (25.0-34.0); Mean Corpuscular Hgb Conc 31.2 g/dL (32.0-36.0); Mean Corpuscular Volume 77.5 fL (80.0-100.0); Mean Platelet Volume 9.1 fL (9.4-12.4); Platelet Count 332 K/uL (130-400); RDW Coefficient of Variation 20.7 % (11.5-14.5); RDW Standard Deviation 58.8 fL (36.4-46.3); Red Blood Count 4.88 M/uL (4.70-6.10); White Blood Count 9.37 K/ul (4.8-10.8)
--- NOTE | 2024-06-04 20:36 | Hospitalist Progress Note ---
Date of Service June 04, 2024 Assessment & Plan (1) Ambulatory dysfunction: Plan: 2nd to RLE pain/weakness Likely due to severe spinal stenosis at L1-L2 (along with pathology at other lumbar levels) Can't rule out right hip bursitis but that would not cause pain traveling down the leg to near the ankle Cont tramadol 100mg prn Consider gabapentin Make naprosyn BID scheduled CRP noted to be 0 today ESR <30 See discussion below re: l-spine disease (2) Acute pain of right lower extremity: Plan: see above #1 (3) Homelessness: Plan: case management assisting with placement and/or other options (4) Osteomyelitis of vertebra: Plan: cont doxycycline daily for chronic prophylaxis per outpatient notes from [facility] - Dr. Malina Pacheco from January 2024 - should be on levaquin 750mg qod as well CRP 0 Sed rate low 20s MRI lumbar spine without features of epidural abscess or active discitis CT pelvis without psoas abscess, etc. (5) Degenerative lumbar spinal stenosis: Plan: likely cause of RLE pain/weakness I spoke with Dr Clarke who knows him well from prior back operations 09/2020 - surgery was as follows: #1 removal of posterior segmental instrumentation L3-S1. #2 exploration of fusion L3-S1. #3 lumbar decompression with bilateral medial facetectomies and foraminotomies L1-2 and L2-3. #4 posterior spinal fusion L2-3 L3-4. #5 placement posterior instrumentation L2-4 including a cross-link. #6 interbody fusion L2-3 per #7 placement peek cage 12 x 26 mm L2-3. #8 placement locally harvested morselized autograft in the posterior lateral gutters. #9 placement infuse collagen sponge, master graft in the posterior gutters and ostial amp interbody space. based on the severity of L1-L2, if he needs surgery, this should be done at a tertiary care center I had informal discussions [facility], Dr Murray He, too, feels that Mr Camacho would be best served at a tertiary care center In addition to L1-L2 disease he has non-union at lower levels -- he would likely need an EXTENSIVE surgery to fix everything I think our best option will be outpatient f/u at ortho-spine clinic at [place], [facility], or [facility] will d/w patient (6) Neurogenic claudication due to lumbar spinal stenosis: Plan: consider gabapentin tramadol prn pain see above Plan Chronic stable medical conditions: * HTN - continue metoprolol * Tobacco use - nicotine patch dispo - uncertain given his homelessness status and ongoing issues with lumbar spine and RLE Admission and Anticipated Discharge Date Admission Date: May 31, 2024 Subjective right leg feels a little better today less pain better mobility still with pain that radiates down the right leg to above the right ankle no left leg pain eating well per multiple staff members he has been disrespectful and verbally abusive at times Review of Systems Review of Systems: gen - no fevers or chills cv - no chest pain, no orthopnea pulm - no dyspnea GI - no abd pain or N/V; no melena by nursing report Physical Exam Physical Exam: gen - laying flat in bed, comfortable mouth - MMM heart - RRR, s1 s2, no murmur lungs - CTA b/l abd - soft NT ND BS+; free floating ribs L lower costal margin - unchanged ext - no edema, pulses 2+ b/l musculo - improved passive/active ROM of right hip and right leg; however, he does have pain that radiates down the right leg to just above the right ankle when the right leg is manipulated; he does have pain over the right trochanteric bursal region with palpation Results & Data Results & Data Vital Signs (Past 12 Hours) Vital Signs Temp Pulse Resp BP Pulse Ox O2 Del Method 06/04/24 16:03 36.4 C L 74 18 147/78 H 97 Room Air Laboratory Results Laboratory Results - last 24 hr 06/04/24 14:03 WBC 9.37 RBC 4.88 Hgb 11.8 L Hct 37.8 L MCV 77.5 L MCH 24.2 L MCHC 31.2 L RDW Std Deviation 58.8 H RDW Coeff of Adele 20.7 H Plt Count 332 MPV 9.1 L ESR 26 H C-Reactive Protein < 0.50 PG Care Time/CCT Total # of Minutes Spent Total Time Spent with Patient: Total time spent is greater than 50% in coordination of care (as documented) at patient's floor/unit and/or counseling patient: Coding Level of Care Code 90368 SUB INP/OBS CARE 2/35MIN Diagnoses Ambulatory dysfunction R26.2 Acute pain of right lower extremity M79.604 Homelessness Z59.00 Osteomyelitis of vertebra M46.20 Degenerative lumbar spinal stenosis M48.061 Neurogenic claudication due to lumbar spinal stenosis M48.062
[2024-06-05] MEDS: DOXYCYCLINE HYCLATE 100 MG CAP PO SCH (08:42)
[2024-06-05] MEDS: dexAMETHasone 4 MG in SYRINGE 0 ML IV ONE (14:09)
--- NOTE | 2024-06-05 20:26 | Hospitalist Progress Note ---
Date of Service June 05, 2024 Assessment & Plan (1) Ambulatory dysfunction: Plan: 2nd to RLE pain/weakness Likely due to severe spinal stenosis at L1-L2 (along with pathology at other lumbar levels) Can't rule out right hip bursitis but that would not cause pain traveling down the leg to near the ankle Cont tramadol 100mg prn Consider lyrica or other neuropathic pain agent (topamax, etc) Cont naprosyn BID scheduled but I noticed he is refusing such CRP noted to be 0 on yesterday's blood work ESR <30 See discussion below re: l-spine disease (2) Acute pain of right lower extremity: Plan: see above #1 (3) Homelessness: Plan: case management assisting with placement and/or other options (4) Osteomyelitis of vertebra: Plan: cont doxycycline daily for chronic prophylaxis per outpatient notes from [facility] - Dr. Malina Pacheco from January 2024 - should be on levaquin 750mg qod as well -- continue such CRP 0 Sed rate low 20s MRI lumbar spine without features of epidural abscess or active discitis CT pelvis without psoas abscess, etc. (5) Degenerative lumbar spinal stenosis: Plan: likely cause of RLE pain/weakness I spoke with Dr Clarke who knows him well from prior back operations 09/2020 - surgery was as follows: #1 removal of posterior segmental instrumentation L3-S1. #2 exploration of fusion L3-S1. #3 lumbar decompression with bilateral medial facetectomies and foraminotomies L1-2 and L2-3. #4 posterior spinal fusion L2-3 L3-4. #5 placement posterior instrumentation L2-4 including a cross-link. #6 interbody fusion L2-3 per #7 placement peek cage 12 x 26 mm L2-3. #8 placement locally harvested morselized autograft in the posterior lateral gutters. #9 placement infuse collagen sponge, master graft in the posterior gutters and ostial amp interbody space. based on the severity of L1-L2, if he needs surgery, this should be done at a tertiary care center I had informal discussions with [facility], Dr Murray He, too, feels that Mr Camacho would be best served at a tertiary care center In addition to L1-L2 disease he has non-union at lower levels -- he would likely need an EXTENSIVE surgery to fix everything I think our best option will be outpatient f/u at [place]sp[place] clinic [place] [facility] or [facility] or [place] (6) Neurogenic claudication due to lumbar spinal stenosis: Plan: consider lyrica or other neuropathic pain med tramadol prn pain pt reports muscle spasm -- will order baclofen 10mg BID (7) Polysubstance abuse: Plan: +cocaine +THC both on tox screen at time of admission has tested + for cocaine on prior admissions as well NOT a good candidate for any controlled substance prescriptions at d/c no evidence of any withdrawal at this time Plan Chronic stable medical conditions: * HTN - continue metoprolol * Tobacco use - nicotine patch dispo - uncertain given his homelessness status and ongoing issues with lumbar spine and RLE Admission and Anticipated Discharge Date Admission Date: May 31, 2024 Subjective pt reports improved mobility of the right leg can bend it more easily states he is walking to the bathroom on his own? still with pain over the lateral aspect of the right hip region with radiation to the right groin and radiation down the leg to just above the ankle some paresthesias asks if I contacted Dr Montalvo from [facility] denies any back pain today Review of Systems Review of Systems: gen - no fevers or chills cv - no chest pain pulm - no dyspnea or MENDOZA GI - no N/V Physical Exam Physical Exam: gen - laying flat in bed, comfortable heart - RRR, s1 s2, no murmur lungs - CTA b/l abd - soft NT ND BS+; free floating ribs L lower costal margin - unchanged ext - no edema, pulses 2+ b/l musculo - improved passive/active ROM of right hip and right leg; still with tenderness/pain over the right trochanteric bursal region with palpation psych - a/o x 3 Results & Data Results & Data Vital Signs (Past 12 Hours) Vital Signs Temp Pulse Resp BP Pulse Ox O2 Del Method 06/05/24 12:14 36.5 C 81 17 120/72 96 Room Air Laboratory Results Laboratory Results - last 48 hr 06/04/24 14:03 WBC 9.37 RBC 4.88 Hgb 11.8 L Hct 37.8 L MCV 77.5 L MCH 24.2 L MCHC 31.2 L RDW Std Deviation 58.8 H RDW Coeff of Adele 20.7 H Plt Count 332 MPV 9.1 L ESR 26 H C-Reactive Protein < 0.50 PG Care Time/CCT Total # of Minutes Spent Total Time Spent with Patient: Total time spent is greater than 50% in coordination of care (as documented) at patient's floor/unit and/or counseling patient: Coding Level of Care Code 53653 SUB INP/OBS CARE 10/31MIN Diagnoses Ambulatory dysfunction R26.2 Acute pain of right lower extremity M79.604 Homelessness Z59.00 Osteomyelitis of vertebra M46.20 Degenerative lumbar spinal stenosis M48.061 Neurogenic claudication due to lumbar spinal stenosis M48.062 Polysubstance abuse F19.10
[2024-06-05] MEDS: NAPROXEN 250 MG TAB PO SCH (21:30)
[2024-06-05] MEDS: BACLOFEN 10 MG TAB PO SCH (21:30)
[2024-06-06] MEDS: dexAMETHasone 4 MG in SYRINGE 0 ML IV ONE (12:06)
[2024-06-06] MEDS: DICLOFENAC SOD 1% GEL 100 GM TUBE EXT SCH (15:14)
--- NOTE | 2024-06-06 17:45 | Hospitalist Progress Note ---
Date of Service June 06, 2024 Assessment & Plan (1) Fall: Plan: he reports he fell trying to get back to bed after using the bathroom the fall was unwitnessed he has no obvious new injuries on exam but does c/o severe right hip pain - pain is worse than prior plan x-rays of R hip with pelvis r/o fracture fall precautions (2) Bursitis of right hip: Plan: he has had tenderness to palpation over the right trochanteric bursal region over the last few days hopefully the dexamethasone will help this if bursitis is truly present I encouraged him to try the voltaren gel to this region cont tramadol prn cont baclofen for now consider ice (3) Ambulatory dysfunction: Plan: 2nd to RLE pain/weakness Likely due to severe spinal stenosis at L1-L2 (along with pathology at other lumbar levels) Can't rule out right hip bursitis but that would not cause pain traveling down the leg to near the ankle Cont tramadol 100mg prn Consider lyrica or other neuropathic pain agent (topamax, etc) CRP noted to be 0 on most recent blood work ESR <30 See discussion below re: l-spine disease (4) Acute pain of right lower extremity: Plan: see above #1, #2, #3 (5) Homelessness: Plan: case management assisting with placement and/or other options (6) Osteomyelitis of vertebra: Plan: cont doxycycline daily for chronic prophylaxis per outpatient notes from [facility] - Dr. Malina Pacheco from January 2024 - should be on levaquin 750mg qod as well -- continue such CRP 0 Sed rate low 20s MRI lumbar spine without features of epidural abscess or active discitis CT pelvis without psoas abscess, etc. (7) Degenerative lumbar spinal stenosis: Plan: likely cause of RLE pain/weakness I spoke with Dr Clarke who knows him well from prior back operations 09/2020 - surgery was as follows: #1 removal of posterior segmental instrumentation L3-S1. #2 exploration of fusion L3-S1. #3 lumbar decompression with bilateral medial facetectomies and foraminotomies L1-2 and L2-3. #4 posterior spinal fusion L2-3 L3-4. #5 placement posterior instrumentation L2-4 including a cross-link. #6 interbody fusion L2-3 per #7 placement peek cage 12 x 26 mm L2-3. #8 placement locally harvested morselized autograft in the posterior lateral gutters. #9 placement infuse collagen sponge, master graft in the posterior gutters and ostial amp interbody space. based on the severity of L1-L2, if he needs surgery, this should be done at a tertiary care center I had informal discussions with [facility], Dr Murray He, too, feels that Mr Camacho would be best served at a tertiary care center In addition to L1-L2 disease he has non-union at lower levels -- he would likely need an EXTENSIVE surgery to fix everything I think our best option will be outpatient f/u at ortho-spine clinic at [facility] [place], [facility], or [facility] or [place] (8) Neurogenic claudication due to lumbar spinal stenosis: Plan: consider lyrica or other neuropathic pain med tramadol prn pain pt reports muscle spasm -- cont baclofen 10mg BID (9) Polysubstance abuse: Plan: +cocaine +THC both on tox screen at time of admission has tested + for cocaine on prior admissions as well NOT a good candidate for any controlled substance prescriptions at d/c no evidence of any withdrawal at this time Plan Chronic stable medical conditions: * HTN - continue metoprolol * Tobacco use - nicotine patch dispo - uncertain given his homelessness status and ongoing issues with lumbar spine and RLE Admission and Anticipated Discharge Date Admission Date: May 31, 2024 Subjective stopped by his room about 3pm - was sleeping, did not disturb him returned to his room about 530pm he was awake at this time he reports that 30-40 minutes before my arrival he "had a fall" he states he had gone to the bathroom when he was walking back to the bed he reached for the railing on the bed he states he accidentally flipped the bedside table over he fell to the ground - landed on his knees denies any new areas of pain right hip/right leg pain, however, is much worse than before the fall I had ordered him voltaren gel for the outer right hip/thigh but he has refused all doses he said "I have a box at home with all sorts of gels - none of them work" he DID take the dexamethasone steroid earlier in the day with respect to the fall he denies having had syncope, chest pain, etc leading to the fall Review of Systems Review of Systems: CV - no orthopnea, no edema, no chest pain pulm - no MENDOZA neuro - felt a little "dizzy" with walking to the bathroom GI - no N/V; last stool 06/03 Physical Exam Physical Exam: gen - laying flat in bed, uncomfortable head - no signs of trauma neck - no JVD heart - RRR, s1 s2, no murmur lungs - CTA b/l abd - soft NT ND BS+; free floating ribs L lower costal margin - unchanged ext - no edema, pulses 2+ b/l musculo - no signs of trauma to either arm or leg; passive ROM of both arms wnl - no pain; passive ROM of left leg - no pain; active/passive ROM of right hip leads to severe pain in the right hip and right leg; no signs of trauma to either knee - no abrasions, bruises or swelling psych - agitated today Results & Data Results & Data Vital Signs (Past 12 Hours) Vital Signs Temp Pulse Resp BP Pulse Ox O2 Del Method 06/06/24 14:50 36.5 C 80 18 154/81 H 95 Room Air PG Care Time/CCT Total # of Minutes Spent Total Time Spent with Patient: Total time spent is greater than 50% in coordination of care (as documented) at patient's floor/unit and/or counseling patient: Coding Level of Care Code 93280 SUB INP/OBS CARE 2/35MIN Diagnoses Fall W19.XXXA Bursitis of right hip M70.71 Ambulatory dysfunction R26.2 Acute pain of right lower extremity M79.604 Homelessness Z59.00 Osteomyelitis of vertebra M46.20 Degenerative lumbar spinal stenosis M48.061 Neurogenic claudication due to lumbar spinal stenosis M48.062 Polysubstance abuse F19.10
--- NOTE | 2024-06-07 07:30 | XRay Report ---
XR hip RT 2V w pelvis CLINICAL HISTORY: fall, right hip pain, r/o Fracture COMPARISON: Pelvis CT June 03, 2024. Pelvis and right hip radiographs May 31, 2024. FINDINGS: Postoperative findings within the lumbosacral spine and the left SI joint fusion are noted . There are no acute fractures within the pelvis or hips. There is a large amount of stool within the rectum. Mild bilateral hip joint space narrowing with moderate osteophytosis. IMPRESSION: 1. No fractures within the pelvis or hips. 2. Moderate bilateral hip osteoarthritis. 3. Large amount of stool within the rectum. ACT 112: Negative or not required by law. Electronically signed by: Christophe Cormier M.D. 06/07/2024 7:28 AM
[2024-06-07] MEDS: SENNA 8.6 MG TAB PO SCH (10:19)
[2024-06-07] MEDS: dexAMETHasone 6 MG in SYRINGE 0 ML IV SCH (12:01)
--- NOTE | 2024-06-07 18:07 | Hospitalist Progress Note ---
Date of Service June 07, 2024 Assessment & Plan (1) Fall: Plan: 06/06/24 he reported he fell trying to get back to bed after using the bathroom the fall was unwitnessed he had no obvious new injuries on exam but did c/o severe right hip pain (pain worse than prior) R hip with pelvis x-rays NEGATIVE for fractures fall precautions (2) Bursitis of right hip: Plan: he has had tenderness to palpation over the right trochanteric bursal region over the last few days I was hopeful the dexamethasone would help this if bursitis is truly present but he only received 2 doses and today he refused his 3rd dose I encouraged him to try the voltaren gel to this region but he is refusing this as well cont tramadol prn cont baclofen for now will ask ortho to see him (3) Ambulatory dysfunction: Plan: 2nd to RLE pain/weakness Likely due to severe spinal stenosis at L1-L2 (along with pathology at other lumbar levels) Can't rule out right hip bursitis but that would not cause pain traveling down the leg to near the ankle Cont tramadol 100mg prn Consider lyrica or other neuropathic pain agent (topamax, etc) but doubt he would be willing to take such CRP noted to be 0 on most recent blood work ESR <30 See discussion below re: l-spine disease (4) Acute pain of right lower extremity: Plan: see above (5) Homelessness: Plan: case management assisting with placement and/or other options (6) Osteomyelitis of vertebra: Plan: cont doxycycline daily for chronic prophylaxis per outpatient notes from [facility] - Dr. Malina Pacheco from January 2024 - should be on levaquin 750mg qod as well -- continue such CRP 0 Sed rate low 20s MRI lumbar spine without features of epidural abscess or active discitis CT pelvis without psoas abscess, etc. (7) Degenerative lumbar spinal stenosis: Plan: likely cause of RLE pain/weakness I spoke with Dr Clarke who knows him well from prior back operations 09/2020 - surgery was as follows: #1 removal of posterior segmental instrumentation L3-S1. #2 exploration of fusion L3-S1. #3 lumbar decompression with bilateral medial facetectomies and foraminotomies L1-2 and L2-3. #4 posterior spinal fusion L2-3 L3-4. #5 placement posterior instrumentation L2-4 including a cross-link. #6 interbody fusion L2-3 per #7 placement peek cage 12 x 26 mm L2-3. #8 placement locally harvested morselized autograft in the posterior lateral gutters. #9 placement infuse collagen sponge, master graft in the posterior gutters and ostial amp interbody space. based on the severity of L1-L2, if he needs surgery, this should be done at a tertiary care center I had informal discussions with [facility], Dr Murray He, too, feels that Mr Camacho would be best served at a tertiary care center In addition to L1-L2 disease he has non-union at lower levels -- he would likely need an EXTENSIVE surgery to fix everything I think our best option will be outpatient f/u at ortho-spine clinic at [facility], [facility], or [facility] or [place] (8) Neurogenic claudication due to lumbar spinal stenosis: Plan: consider lyrica or other neuropathic pain med but doubt he would be willing to take such tramadol prn pain pt reports muscle spasm -- cont baclofen 10mg BID (9) Polysubstance abuse: Plan: +cocaine +THC both on tox screen at time of admission has tested + for cocaine on prior admissions as well NOT a good candidate for any controlled substance prescriptions at d/c no evidence of any withdrawal at this time (10) Constipation: Plan: based on x-rays opiate induced ordered senna for him but refusing it Plan Chronic stable medical conditions: * HTN - BPs mildly elevated; doubt he would be willing to take anything for it; consider clonidine patch - this would help compliance, and this might help mood swings * Tobacco use - nicotine patch dispo - uncertain given his homelessness status and ongoing issues with lumbar spine and RLE Admission and Anticipated Discharge Date Admission Date: May 31, 2024 Subjective upon my arrival patient stated "why did you call the police?" I asked him what he meant and he said "the [place] police just came in my room" I told him I had no idea what he meant and that I wasn't aware of any police coming up he admitted he was very upset and asked me to leave I tried to tell him I was going to ask orthopedics to see him in consult tomorrow and again he asked me to leave per staff he refused his steroids this am he also is refusing to take the voltaren gel also refused senakot nursing reported that he was being argumentative and abusive to multiple staff members and thus [facility] security were called to his room (not [place] police) Review of Systems Review of Systems: unable to elicit any ROS as he asked me to leave the room Physical Exam Physical Exam: gen - laying flat in bed psych - awake/alert, upset/angry Results & Data Results & Data Vital Signs (Past 12 Hours) Vital Signs Temp Pulse Resp BP Pulse Ox O2 Del Method 06/07/24 14:21 36.6 C 82 16 148/58 H 98 Room Air 06/07/24 07:22 36.7 C 84 16 156/76 H 99 Room Air Diagnostic Findings Hip/Pelvis X-Ray 06/06/24 18:48 XR hip RT 2V w pelvis CLINICAL HISTORY: fall, right hip pain, r/o Fracture COMPARISON: Pelvis CT June 03, 2024. Pelvis and right hip radiographs May 31, 2024. FINDINGS: Postoperative findings within the lumbosacral spine and the left SI joint fusion are noted. There are no acute fractures within the pelvis or hips. There is a large amount of stool within the rectum. Mild bilateral hip joint space narrowing with moderate osteophytosis. IMPRESSION: 1. No fractures within the pelvis or hips. 2. Moderate bilateral hip osteoarthritis. 3. Large amount of stool within the rectum. ACT 112: Negative or not required by law. Electronically signed by: Christophe Cormier M.D. 06/07/2024 7:28 AM PG Care Time/CCT Total # of Minutes Spent Total Time Spent with Patient: Total time spent is greater than 50% in coordination of care (as documented) at patient's floor/unit and/or counseling patient: Coding Level of Care Code 16031 SUB INP/OBS CARE 10/31MIN Diagnoses Fall W19.XXXA Bursitis of right hip M70.71 Ambulatory dysfunction R26.2 Acute pain of right lower extremity M79.604 Homelessness Z59.00 Osteomyelitis of vertebra M46.20 Degenerative lumbar spinal stenosis M48.061 Neurogenic claudication due to lumbar spinal stenosis M48.062 Polysubstance abuse F19.10 Constipation K59.00
--- NOTE | 2024-06-08 12:25 | Orthopedic Consultation ---
Date of Service June 08, 2024 Assessment & Plan (1) Bursitis of right hip: Although a lot of his pain may be coming from his back, a portion of it may be coming from the hip. I him a right greater trochanteric bursa injection at bedside today. Hopes to calm down some of his symptoms. Will see if it helps him out at all. From my standpoint, I do not see any operative indications around his hip. He will have to talk to the spine surgeon about his back. Please call me if you need further assistance. The right hip was prepped with an alcohol swab. The right greater trochanteric bursa was then injected with 3 cc of Marcaine and 80 mg of Kenalog. He tolerated the procedure well. History of Present Illness Reason for Consultation: Right hip pain. Requesting Physician: . Attending Physician: Allan Vela MD Tigre is a 64-year-old male who has a history of lumbar spine surgery. He has severe stenosis at L1-2. He was admitted to the hospitalist service a few days ago with severe right hip and leg pain. Although a lot of his pain may be coming from his back, he is pointing to a lot of pain directly over the greater trochanteric region of his right hip. Orthopedics was consulted for evaluation.. Allergies Allergy/AdvReac Type Severity Reaction Status Date / Time gabapentin Allergy Severe SHORT OF Verified 05/31/24 15:35 BREATH cat dander Allergy Intermediate itchy Verified 05/31/24 15:35 eyes, sneezing codeine AdvReac Intermediate GI upset Verified 05/31/24 15:35 Home Medications Medication Instructions Recorded Confirmed Type cyclobenzaprine 10 mg tablet 10 mg PO TID PRN muscle spasms 05/31/24 05/31/24 History Past Med/Surg History Problem List Constipation Bursitis of right hip Fall Polysubstance abuse Neurogenic claudication due to lumbar spinal stenosis Degenerative lumbar spinal stenosis Acute pain of right lower extremity Ambulatory dysfunction (Acute) Acute pain of right hip (Acute) Left against medical advice Bilateral lower extremity edema Contact with metalworking machinery as cause of accidental injury Polysubstance use disorder Osteomyelitis of vertebra Malnutrition Wernicke encephalopathy MENDOZA (dyspnea on exertion) (Acute) Iron deficiency anemia Closed T3 fracture (Acute) Homeless (Acute) Closed fracture of left zygomatic arch (Acute) Homelessness Anemia (Acute) Paranoia Altered mental status (Acute) Confusion Rupture of proximal biceps tendon Left arm cellulitis Hyperglycemia Screening for osteoporosis Insomnia Hardware failure Abnormal MRI, lumbar spine Chronic low back pain Elevated WBC count Numbness and tingling of both legs Gait abnormality Postoperative pain after spinal surgery Diastolic dysfunction LVH (left ventricular hypertrophy) severe Right bundle branch block (RBBB) with left anterior fascicular block (LAFB) Abnormal EKG Lumbar spinal stenosis (Acute 04/19/14) Medical History Hypokalemia Elevated CPK Tobacco dependence Lumbar spinal stenosis Medical non-compliance Psoas abscess Lower back pain Discitis Psoas abscess Encephalopathy Rib pain on left side Hyperglycemia Blood loss anemia HTN (hypertension) LVH (left ventricular hypertrophy) Rib fracture left sided, remotely, healed without intervention- does have residual pain over area Obesity Osteoarthritis Hypertension Surgical History History of arthroscopy of shoulder left History of knee replacement right History of back surgery x5 total S/P TKR (total knee replacement) Family History Denies family history of Ovarian cancer Prostate cancer Myocardial infarction Breast cancer Colorectal cancer Social History Smoking Status: Current every day smoker Tobacco Type: Cigarettes Second Hand Exposure: Yes; Do You Dip or Chew Tobacco: No; Hx Alcohol Use: Yes Alcohol type: beer Hx Substance Use: Yes Prescribed Medications: Marijuana Last Used Substance: Days (ago) Last Used Substance Other:: UDS + cocaine Preferred Language: Icelandic Communication Ability: Effective General [employer] Required: No Beliefs That Will Affect Care: None marital status: Single Current Living Situation: Alone Current Living Situation Comment: Patient lives alone in an apartment. Expressed that his housing is unsafe current occupational status: unemployed Feels Safe at Home: Declines to Answer Dental Care, Regularly: No Physical Activity Frequency: Does not Exercise Seatbelt Use: always Assistive Devices: Cane Review of Systems All systems reviewed & are unremarkable except as noted in HPI & below. Physical Exam On physical examination of the right hip, he has good range of motion but a lot of pain directly over the greater trochanteric bursa. This is where he points to most of his pain. He also has some pain in his back and does radiate around round and down his leg some as well.. Constitutional WD/WN, vitals as above Eyes PERRL, conjunctivae normal, anicteric sclerae ENMT external ear and nose normal, oropharynx normal Neck trachea midline, no thyromegaly Respiratory normal respiratory effort Cardiovascular RRR, no murmur, no edema Gastrointestinal (Abdomen) normal bowel sounds, soft, nontender, no hepatosplenomegaly Psychiatric A+Ox3, euthymic affect Results & Data Results & Data Laboratory Results . Diagnostic Findings X-rays of the right hip and pelvis were reviewed and there is no evidence of fracture or arthritis. The x-rays are essentially negative. MRI of the lumbar spine was reviewed and shows signs of prior fusion and severe lumbar stenosis at L1-2.. PG Care Time/CCT Total # of Minutes Spent Total Time Spent with Patient: Total time spent is greater than 50% in coordination of care (as documented) at patient's floor/unit and/or counseling patient: Coding Level of Care Code 73763 IN/OBS CONSULT LVL 4,60M Diagnoses Bursitis of right hip M70.71
[2024-06-08] MEDS: TRIAMCINOLONE ACET 40 MG/ML VIAL IA ONE (13:06)
[2024-06-08] MEDS: BUPIVACAINE/EPINEPHRINE 0.25% 1:200,000 30 ML VIAL INFIL ONE (13:06)
--- NOTE | 2024-06-08 19:32 | Hospitalist Progress Note ---
Date of Service June 08, 2024 Assessment & Plan (1) Bursitis of right hip: Plan: he has had tenderness to palpation over the right trochanteric bursal region over the last few days I was hopeful the dexamethasone IV would help this if bursitis was present but he only received 2 doses, and then subsequently he refused his 3rd dose thus, IV steroids discontinued recent x-rays of R hip - mild-moderate OA changes; no fractures I encouraged him to try voltaren gel to this region but he is refusing to use such citing a lack of efficacy cont tramadol prn cont baclofen for now appreciate ortho consult by Dr Garcia who performed steroid injection in the [facility] trochanteric bursa lidoderms ordered prn (2) Degenerative lumbar spinal stenosis: Plan: likely cause of RLE pain/weakness I spoke with Dr Clarke who knows him well from prior back operations 09/2020 - surgery was as follows: #1 removal of posterior segmental instrumentation L3-S1. #2 exploration of fusion L3-S1. #3 lumbar decompression with bilateral medial facetectomies and foraminotomies L1-2 and L2-3. #4 posterior spinal fusion L2-3 L3-4. #5 placement posterior instrumentation L2-4 including a cross-link. #6 interbody fusion L2-3 per #7 placement peek cage 12 x 26 mm L2-3. #8 placement locally harvested morselized autograft in the posterior lateral gutters. #9 placement infuse collagen sponge, master graft in the posterior gutters and ostial amp interbody space. based on the severity of L1-L2, if he needs surgery, this should be done at a tertiary care center I had informal discussions with [facility], Dr Murray He, too, feels that Mr Camacho would be best served at a tertiary care center In addition to L1-L2 disease he has non-union at lower levels -- he would likely need an EXTENSIVE surgery to fix everything I think our best option will be outpatient f/u at ortho-spine clinic at [facility], [facility] [place], or [facility] or [place] (3) Fall: Plan: 06/06/24 --> he reported he fell trying to get back to bed after using the bathroom the fall was unwitnessed he had no obvious new injuries on exam but did c/o severe right hip pain (pain worse than prior) R hip with pelvis x-rays NEGATIVE for fractures on 06/06/24 fall precautions (4) Ambulatory dysfunction: Plan: 2nd to RLE pain/weakness Likely due to severe spinal stenosis at L1-L2 (along with pathology at other lumbar levels) Can't rule out right hip bursitis but that would not cause pain traveling down the leg to near the ankle Cont tramadol 100mg prn Consider lyrica or other neuropathic pain agent (topamax, etc) but doubt he would be willing to take such CRP noted to be 0 on most recent blood work ESR <30 See discussion below re: l-spine disease (5) Acute pain of right lower extremity: Plan: see above (6) Homelessness: Plan: case management assisting with placement and/or other options (7) Osteomyelitis of vertebra: Plan: cont doxycycline daily for chronic prophylaxis per outpatient notes from [facility] - Dr. Malina Pacheco from January 2024 - should be on levaquin 750mg qod as well -- continue such CRP 0 Sed rate low 20s MRI lumbar spine without features of epidural abscess or active discitis CT pelvis without psoas abscess, etc. (8) Neurogenic claudication due to lumbar spinal stenosis: Plan: consider lyrica or other neuropathic pain med but doubt he would be willing to take such tramadol prn pain pt reports muscle spasm -- cont baclofen 10mg BID (9) Polysubstance abuse: Plan: +cocaine +THC both on tox screen at time of admission has tested + for cocaine on prior admissions as well NOT a good candidate for any controlled substance prescriptions at d/c no evidence of any withdrawal at this time (10) Constipation: Plan: based on x-rays opiate induced ordered senna for him but refusing it he states he is moving his bowels Plan Chronic stable medical conditions: * HTN - BPs mildly elevated; doubt he would be willing to take anything for it; consider clonidine patch - this would help compliance, and this might help mood swings - only if BPs are severely high * Tobacco use - nicotine patch dispo - uncertain given his homelessness status and ongoing issues with lumbar spine and RLE Admission and Anticipated Discharge Date Admission Date: May 31, 2024 Subjective patient underwent R trochanteric bursal injection by Dr Garcia earlier in the day despite the injection he did not have any relief of discomfort in the right lateral hip region (despite there being local analgesic in the steroid shot) no other changes in his RLE pain he does admit his range of motion and ability to weight bear is better in the RLE still thinks he "has infection in the hip" and asks why I haven't spoken with Dr Montalvo from [facility] yet explained to him that none of his imaging studies have suggested infection and that his most recent CRP was 0 he asks how he "can get all of his clothes from 'Out of the cold' " Review of Systems Review of Systems: gen - eating well; no fevers or chills cv - no cp, no orthopnea pulm - no dyspnea GI - no abd pain or N/V ; +stools Physical Exam Physical Exam: gen - laying flat in bed, NAD, looks the same in comparison to prior visits mouth - MMM heart - RRR, s1 s2, no murmur lungs - CTA b/l abd - soft NT ND BS+ musculo - 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 (over expected location of bursa); active ROM of right hip - improved, strength 3-4/5 flexion; left hip flexion 5/5 psych - easily agitated Results & Data Results & Data Vital Signs (Past 12 Hours) Vital Signs Temp Pulse Resp BP Pulse Ox O2 Del Method 06/08/24 14:32 36.8 C 87 16 165/81 H 96 Room Air PG Care Time/CCT Total # of Minutes Spent Total Time Spent with Patient: Total time spent is greater than 50% in coordination of care (as documented) at patient's floor/unit and/or counseling patient: Coding Level of Care Code 28446 SUB INP/OBS CARE 25MIN Diagnoses Bursitis of right hip M70.71 Degenerative lumbar spinal stenosis M48.061 Fall W19.XXXA Ambulatory dysfunction R26.2 Acute pain of right lower extremity M79.604 Homelessness Z59.00 Osteomyelitis of vertebra M46.20 Neurogenic claudication due to lumbar spinal stenosis M48.062 Polysubstance abuse F19.10 Constipation K59.00
[2024-06-08] MEDS: LIDOCAINE 5% 1 PATCH TD SCH (20:37)
--- NOTE | 2024-06-09 17:05 | Hospitalist Progress Note ---
Date of Service June 09, 2024 Assessment & Plan (1) Bursitis of right hip: Plan: recent x-rays of R hip - mild-moderate OA changes; no fractures CRP noted to be 0 on most recent blood work ESR <30 ortho consulted - steroid injection of bursa 06/08. Hope that this improves his functional status then he can discharge. no evidence of hip infection, though he is perseverating on this nonparticipatory with PT/OT continue baclofen and tramadol prn (2) Degenerative lumbar spinal stenosis: Plan: likely cause of RLE pain/weakness my colleague spoke with Dr Clarke who knows him well from prior back operations 09/2020 - surgery was as follows: #1 removal of posterior segmental instrumentation L3-S1. #2 exploration of fusion L3-S1. #3 lumbar decompression with bilateral medial facetectomies and foraminotomies L1-2 and L2-3. #4 posterior spinal fusion L2-3 L3-4. #5 placement posterior instrumentation L2-4 including a cross-link. #6 interbody fusion L2-3 per #7 placement peek cage 12 x 26 mm L2-3. #8 placement locally harvested morselized autograft in the posterior lateral gutters. #9 placement infuse collagen sponge, master graft in the posterior gutters and ostial amp interbody space. based on the severity of L1-L2, if he needs surgery, this should be done at a tertiary care center my colleague also had informal discussions with [facility] Dr Murray He, too, feels that Mr Camacho would be best served at a tertiary care center In addition to L1-L2 disease he has non-union at lower levels -- he would likely need an EXTENSIVE surgery to fix everything best option will be outpatient f/u at [place]sp[place] clinic [place] [facility] [place] [facility] [place], or [facility] or [place] (3) Ambulatory dysfunction: Plan: 2nd to RLE pain/weakness see above (4) Homelessness: Plan: case management assisting (5) Osteomyelitis of vertebra: Plan: cont doxycycline and levofloxacin daily for prophylaxis reviewed outpatient notes from [facility] - Dr. Malina Pacheco from January 2024 CRP 0 Sed rate low 20s MRI lumbar spine without features of epidural abscess or active discitis CT pelvis without psoas abscess, etc. (6) Neurogenic claudication due to lumbar spinal stenosis: Plan: consider lyrica or other neuropathic pain med but doubt he would be willing to take such tramadol prn pain pt reports muscle spasm -- cont baclofen 10mg BID (7) Polysubstance abuse: Plan: +cocaine +THC both on tox screen at time of admission has tested + for cocaine on prior admissions as well NOT a good candidate for any controlled substance prescriptions at d/c no evidence of any withdrawal at this time (8) Constipation: Plan: based on x-rays opiate induced ordered senna for him but refusing it he states he is moving his bowels Plan Chronic stable medical conditions: * HTN - BPs mildly elevated; doubt he would be willing to take anything for it; consider clonidine patch - this would help compliance, and this might help mo od swings - only if BPs are severely high * Tobacco use - nicotine patch today he says he is willing to talk to mental health provider. he did have 90-d prescription for duloxetine in January, but was not filled after that dispo - discharge once ambulatory, options nil since he has refused to participate in therapy felisa can go to day program at out of the cold, and be on wait list for night usp once it opens in the winter has resources to call for housing placement, unclear whether he is on the list yet or not. he is no longer welcome from the single [facility] that would have been an option for him because of stealing unwilling to move from [facility] because of the resources that he does have in place here Admission and Anticipated Discharge Date Admission Date: May 31, 2024 Subjective right hip still hurts in a very focal area overlying the trochanteric bursa does have low back pain radiating down posterior R leg at times as well has not been getting out of bed thus far and refused PT he's convinced this pain is somehow related to his chronic infection Physical Exam Physical Exam: PHYSICAL EXAMINATION Last 24h vital signs reviewed, see documentation in flowsheet General: woke up from sleeping HEENT: Normocephalic, atraumatic, pupils round and equal, sclerae anicteric, no conjunctival injection, moist mucus membranes Lungs: Normal respiratory effort. Heart: deferred Abdomen: Soft, nondistended. Extremities: Warm, dry, well-perfused. No extremity edema. R leg TTP over greater trochanteric bursa, no swelling warmth or erythema. Moves around in bed pretty well but rolling side to side does evince pain Neuro: Alert and oriented x hospital and situation, perseverative, face symmetric, moves 4 extremities well Psych: irritable affect and behavior Results & Data Results & Data Vital Signs (Past 12 Hours) Vital Signs Temp Pulse Resp BP Pulse Ox O2 Del Method 06/09/24 14:00 36.8 C 84 16 96 Room Air 06/09/24 07:13 36.4 C L 67 16 167/74 H 100 Room Air PG Care Time/CCT Total # of Minutes Spent Total Time Spent with Patient: Total time spent is greater than 50% in coordination of care (as documented) at patient's floor/unit and/or counseling patient: Coding Level of Care Code 37280 SUB INP/OBS CARE 10/31MIN Diagnoses Bursitis of right hip M70.71 Degenerative lumbar spinal stenosis M48.061 Ambulatory dysfunction R26.2 Homelessness Z59.00 Osteomyelitis of vertebra M46.20 Neurogenic claudication due to lumbar spinal stenosis M48.062 Polysubstance abuse F19.10 Constipation K59.00
--- NOTE | 2024-06-10 13:38 | Psychiatric Consultation ---
Date of Consultation June 10, 2024 Impression / Recommendations Impression 64 yo man with a history of osteomyelitis on chronic abx, HTN, malnourishment, iron deficiency anemia, and polysubstance use disorder admitted medically for ambulatory dysfunction and hip pain. Psychiatry consulted for question of mood disorder/delusions. Diagnostically unclear but suspect likely a combination of antisocial personality disorder, possible delusional disorder vs cocaine withdrawal mood effects, bereavement vs adjustment disorder with depressed mood (doesn't present with typical symptoms of depression but his irritability could be due to depression),polysubstance use disorder, and possible malingering. Given his fixated beliefs about his hop infection, despite multiple conversations with hospitalist providers, and ongoing irritability with multiple providers and staff from various departments and services and his desire to lessen his irritability and improve his mood and sleep a trial of a low dose antipsychotic seems reasonable. An SSRI could also be considered in the future but will be much slower acting and he is requesting more immediate effect. Overall, I spent a total of 60 minutes with this case including review of chart records, review of labwork, review of EKG QTc, direct evaluation of the patient at bedside, counseling the patient, discussion of the patient with the Nurse and with the hospitalist provider, discussion with the psychiatric liason during clinical rounds, review of collateral historian information from the family and documentation in the electronic health record. (1) Unspecified mood [affective] disorder: (2) Antisocial personality disorder: (3) Polysubstance use disorder: (4) Depression: Plan -Consider trial of Seroquel 100mg po HS with 25mg po BID prn for agitation/irritability -Check QTc after 2-3 days of Seroquel use to ensure it remains <500ms. If QTc becomes >500ms then discontinue Seroquel given risks would outweigh potential benefits at that point Psych History Identifying Data 64 yo man with a history of osteomyelitis on chronic abx, HTN, malnourishment, iron deficiency anemia, and polysubstance use disorder admitted medically for ambulatory dysfunction and hip pain. Psychiatry consulted for question of mood disorder/delusions. Chief Complaint "I need them to call this specialist". History of Present Illness Tigre greets me stating "I requested you because they were accusing me of stuff I wasn't doing" referencing reports that he had been aggressively pushing or throwing plates at culinary staff and he states he wants his room to be video monitored. He also expresses feeling like he is "psychotic" and "very short on patience" referencing this is due to his multitude of stressors including homelessness, pain, and lack of support. States his family members have all and his niece, a support in the past, is no longer involved in his life. He reports feeling that his current medical situation is not being adequately addressed and expresses a desire for a second opinion from a specialist he has researched. He describes a history of a hip virus bacteria treated a year ago and believes that his current pain is related to an infection rather than a structural injury but later references that it may be nerve-related, and describes the pain as shooting down his leg and affecting his sciatica. States he is experiencing significant emotional distress, describing himself as "beyond depressed" and feeling out of control, with a sense of losing his sanity. He also mentions having difficulty sleeping and feeling agitated. He has a history of substance use, including painkillers, but denies recent alcohol or cocaine use, despite a positive urine drug screen for cocaine. In discussing this he notes that this must have been in something he took while at a local homeless longterm. He mentions having two DUIs approximately 30 years ago. He exposing himself during our interview and when I pointed this out to him he initially seemed unaware and then covered himself back up and apologized twice. States he would be interested in trying an antipsychotic medication to help with his mood, anger and sleep. Past history reviewed from consult done in 07/2022 at which time there was some collateral from his niece who noted that she "does not recall if the patient had ever been diagnosed with a psychiatric disorder but reports "he has always been on drugs. He went to rehab and he has been to residential. I have never known him to be sane, my whole life." Review of past note also showed history of methamphetamine and cocaine use at that time. Allergies Allergy/AdvReac Type Severity Reaction Status Date / Time gabapentin Allergy Severe SHORT OF Verified 05/31/24 15:35 BREATH cat dander Allergy Intermediate itchy Verified 05/31/24 15:35 eyes, sneezing codeine AdvReac Intermediate GI upset Verified 05/31/24 15:35 Home Medications Medication Instructions Recorded Confirmed Type cyclobenzaprine 10 mg tablet 10 mg PO TID PRN muscle spasms 05/31/24 05/31/24 History Patient History Medical History Hypokalemia Elevated CPK Tobacco dependence Lumbar spinal stenosis Medical non-compliance Psoas abscess Lower back pain Discitis Psoas abscess Encephalopathy Rib pain on left side Hyperglycemia Blood loss anemia HTN (hypertension) LVH (left ventricular hypertrophy) Rib fracture left sided, remotely, healed without intervention- does have residual pain over area Obesity Osteoarthritis Hypertension Surgical History History of arthroscopy of shoulder left History of knee replacement right History of back surgery x5 total S/P TKR (total knee replacement) Family History Denies family history of Ovarian cancer Prostate cancer Myocardial infarction Breast cancer Colorectal cancer Social History Smoking Status: Current every day smoker Tobacco Type: Cigarettes Second Hand Exposure: Yes; Do You Dip or Chew Tobacco: No; Hx Alcohol Use: Yes Alcohol type: beer Hx Substance Use: Yes Prescribed Medications: Marijuana Last Used Substance: Days (ago) Last Used Substance Other:: UDS + cocaine Preferred Language: Bengali Communication Ability: Effective Digital Marketing Strategist Required: No Beliefs That Will Affect Care: None marital status: Single Current Living Situation: Alone Current Living Situation Comment: Patient lives alone in an apartment. Expressed that his housing is unsafe current occupational status: unemployed Feels Safe at Home: Declines to Answer Dental Care, Regularly: No Physical Activity Frequency: Does not Exercise Seatbelt Use: always Assistive Devices: Cane Physical Exam Psychiatric: Orientation: alert and oriented x 3 Apperance: + disheveled Eye Contact: good eye contact Motor Behavior: no abnormal motor movements Speech: + loud speech and normal rate/rhythm/volume of speech Affect: + irritable affect and + angry affect Mood: + depressed mood, + irritable mood and + angry mood Thought Process: + tangential thought process and + perseveration Thought Content: + preoccupation and + delusions Suicidal Thoughts: denies suicidal thoughts Homicidal Thoughts: denies homicidal thoughts Hallucinations: no auditory hallucinations and no visual hallucinations Insight: + limited insight Judgment: + limited judgement Vital Signs (Past 24 Hours): Last Vital Signs Temp 36.7 C 06/10/24 12:22 Pulse 96 H 06/10/24 12:22 Resp 18 06/10/24 12:22 BP 182/85 H 06/10/24 12:22 Pulse Ox 98 06/10/24 12:22 O2 Del Method Room Air 06/10/24 12:22 Results & Data (PSY) Medications Administered Doxycycline Hyclate (Doxycycline Hyclate 100 Mg Cap) 100 mg PO DAILY [facility] Stop: 07/05/24 08:59 Last Admin: 06/10/24 09:25 Dose: 100 mg Documented By: Admin: 06/09/24 08:53 Dose: 100 mg Documented By: Admin: 06/08/24 07:50 Dose: 100 mg Documented By: Admin: 06/07/24 08:08 Dose: 100 mg Documented By: Admin: 06/06/24 08:50 Dose: 100 mg Documented By: Admin: 06/05/24 08:42 Dose: 100 mg Documented By: DAVID Levofloxacin (Levofloxacin 750 Mg Tab) 750 mg PO Q2D@1100 [facility]; Protocol Stop: 07/04/24 10:59 Last Admin: 06/08/24 11:56 Dose: Not Given Documented By: Admin: 06/06/24 12:07 Dose: 750 mg Documented By: Admin: 06/04/24 11:37 Dose: 750 mg Documented By: SEBASTIAN Lidocaine (Lidocaine 5% 1 Patch) 2 patch TD QPM [facility] Stop: 07/08/24 20:59 Last Admin: 06/09/24 19:26 Dose: Not Given Documented By: Admin: 06/08/24 20:37 Dose: 2 patch Documented By: ANNABELLA Miscellaneous (Remove Nicoderm Patch) 1 each N/A DAILY@0859 [facility] Stop: 07/01/24 08:58 Last Admin: 06/10/24 09:25 Dose: Not Given Documented By: Admin: 06/09/24 08:53 Dose: 1 each Documented By: Admin: 06/08/24 07:50 Dose: Not Given Documented By: Admin: 06/07/24 08:09 Dose: 1 each Documented By: Admin: 06/06/24 08:50 Dose: 1 each Documented By: Admin: 06/05/24 08:42 Dose: 1 each Documented By: Admin: 06/04/24 08:02 Dose: 1 each Documented By: Admin: 06/03/24 09:24 Dose: 1 each Documented By: Admin: 06/02/24 08:18 Dose: 1 each Documented By: Admin: 06/01/24 08:22 Dose: 1 each Documented By: ROSI Miscellaneous (Remove Lidoderm Patch) 1 each N/A DAILY@2100 [facility] Stop: 07/09/24 08:59 Last Admin: 06/09/24 19:26 Dose: Not Given Documented By: Admin: 06/09/24 08:52 Dose: 1 each Documented By: LEON Nicotine (Nicotine 21 Mg/24 Hr Tdsy) 1 patch TD QAM [facility] Stop: 06/30/24 18:44 Last Admin: 06/10/24 09:24 Dose: 1 patch Documented By: Admin: 06/09/24 08:51 Dose: 1 patch Documented By: Admin: 06/08/24 07:49 Dose: 1 patch Documented By: Admin: 06/07/24 08:09 Dose: 1 patch Documented By: Admin: 06/06/24 08:51 Dose: 1 patch Documented By: Admin: 06/05/24 08:41 Dose: 1 patch Documented By: Admin: 06/04/24 08:01 Dose: 1 patch Documented By: Admin: 06/03/24 09:23 Dose: 1 patch Documented By: Admin: 06/02/24 08:17 Dose: 1 patch Documented By: Admin: 06/01/24 08:22 Dose: 1 patch Documented By: Admin: 05/31/24 19:42 Dose: 1 patch Documented By: MEHRDAD Pantoprazole Sodium (Pantoprazole 40 Mg Tab) 40 mg PO DAILY [facility] Stop: 07/01/24 08:59 Last Admin: 06/10/24 09:25 Dose: Not Given Documented By: Admin: 06/09/24 08:52 Dose: Not Given Documented By: Admin: 06/08/24 07:50 Dose: Not Given Documented By: Admin: 06/07/24 08:09 Dose: Not Given Documented By: Admin: 06/06/24 08:52 Dose: Not Given Documented By: Admin: 06/05/24 08:38 Dose: Not Given Documented By: Admin: 06/04/24 08:00 Dose: 40 mg Documented By: Admin: 06/03/24 09:26 Dose: Not Given Documented By: Admin: 06/02/24 08:17 Dose: 40 mg Documented By: Admin: 06/01/24 08:22 Dose: Not Given Documented By: ROSI Sennosides (Senna 8.6 Mg Tab) 17.2 mg PO QAM [facility] Stop: 07/07/24 08:59 Last Admin: 06/10/24 09:26 Dose: Not Given Documented By: Admin: 06/09/24 08:52 Dose: Not Given Documented By: Admin: 06/08/24 07:50 Dose: Not Given Documented By: Admin: 06/07/24 10:19 Dose: Not Given Documented By: KATHRINE Tramadol HCl (Tramadol Hcl 50 Mg Tablet) 100 mg PO Q4H PRN PRN Reason: Pain Stop: 07/02/24 20:24 Last Admin: 06/10/24 09:30 Dose: 100 mg Documented By: Admin: 06/10/24 02:02 Dose: 100 mg Documented By: Admin: 06/09/24 22:02 Dose: 100 mg Documented By: Admin: 06/09/24 17:57 Dose: 100 mg Documented By: Admin: 06/09/24 13:57 Dose: 100 mg Documented By: Admin: 06/09/24 05:50 Dose: 100 mg Documented By: Admin: 06/08/24 22:50 Dose: 100 mg Documented By: Admin: 06/08/24 18:21 Dose: 100 mg Documented By: Admin: 06/08/24 05:54 Dose: 100 mg Documented By: Admin: 06/08/24 01:57 Dose: 100 mg Documented By: Admin: 06/07/24 21:55 Dose: 100 mg Documented By: Admin: 06/07/24 14:09 Dose: 100 mg Documented By: Admin: 06/07/24 07:38 Dose: 100 mg Documented By: Admin: 06/07/24 02:10 Dose: 100 mg Documented By: Admin: 06/06/24 22:09 Dose: 100 mg Documented By: Admin: 06/06/24 18:10 Dose: 100 mg Documented By: Admin: 06/06/24 10:12 Dose: 100 mg Documented By: Admin: 06/06/24 01:59 Dose: 100 mg Documented By: Admin: 06/05/24 21:30 Dose: 100 mg Documented By: Admin: 06/05/24 14:07 Dose: 100 mg Documented By: Admin: 06/05/24 08:41 Dose: 100 mg Documented By: Admin: 06/04/24 22:08 Dose: 100 mg Documented By: Admin: 06/04/24 05:48 Dose: 100 mg Documented By: Admin: 06/04/24 01:36 Dose: 100 mg Documented By: Admin: 06/03/24 21:03 Dose: 100 mg Documented By: [facility] Coding Level of Care Code 96814 IN/OBS CONSULT LVL 4,60M Diagnoses Unspecified mood [affective] disorder F39 Antisocial personality disorder F60.2 Polysubstance use disorder F19.90 Depression F32.A
[2024-06-10] MEDS ORDERED: QUEtiapine FUMARATE 25 MG TABLET PO PRN (16:32)
--- NOTE | 2024-06-10 16:46 | Hospitalist Progress Note ---
Date of Service June 10, 2024 Assessment & Plan (1) Bursitis of right hip: Plan: recent x-rays of R hip - mild-moderate OA changes; no fractures CRP noted to be 0 on most recent blood work ESR <30 ortho consulted - steroid injection of bursa 06/08. Hope that this improves his functional status then he can discharge. no evidence of hip infection, though he is perseverating on this idea nonparticipatory with PT/OT - refused PT eval 5x this admission, thus PT signed off. continue baclofen and tramadol prn no c/o right sided hip pain today, stated pain was on L side and observed lying on his R side. Thus I think the bursitis has improved. Spoke with RN and we have not observed him OOB. (2) Ambulatory dysfunction: Plan: 2nd to RLE pain/weakness see above (3) Homelessness: Plan: case management has met with him, see below. (4) Osteomyelitis of vertebra: Plan: cont doxycycline and levofloxacin daily for prophylaxis reviewed outpatient notes from [facility] - Dr. Malina Pacheco from January 2024 CRP 0 Sed rate low 20s MRI lumbar spine without features of epidural abscess or active discitis CT pelvis without psoas abscess, etc. (5) Tobacco dependence: (6) Hypertension: (7) Degenerative lumbar spinal stenosis: Plan: likely cause of RLE pain/weakness my colleague spoke with Dr Clarke who knows him well from prior back operations 09/2020 - surgery was as follows: #1 removal of posterior segmental instrumentation L3-S1. #2 exploration of fusion L3-S1. #3 lumbar decompression with bilateral medial facetectomies and foraminotomies L1-2 and L2-3. #4 posterior spinal fusion L2-3 L3-4. #5 placement posterior instrumentation L2-4 including a cross-link. #6 interbody fusion L2-3 per #7 placement peek cage 12 x 26 mm L2-3. #8 placement locally harvested morselized autograft in the posterior lateral gutters. #9 placement infuse collagen sponge, master graft in the posterior gutters and ostial amp interbody space. based on the severity of L1-L2, if he needs surgery, this should be done at a tertiary care center my colleague also had informal discussions with [facility], Dr Murray He, too, feels that Mr Camacho would be best served at a tertiary care center In addition to L1-L2 disease he has non-union at lower levels -- he would likely need an EXTENSIVE surgery to fix everything best option will be outpatient f/u at ortho-spine clinic at [facility] [place], [facility] [place], or [facility] or [place] (8) Neurogenic claudication due to lumbar spinal stenosis: Plan: consider lyrica or other neuropathic pain med but doubt he would be willing to take such tramadol prn pain pt reports muscle spasm -- cont baclofen 10mg BID (9) Polysubstance abuse: Plan: +cocaine +THC both on tox screen at time of admission has tested + for cocaine on prior admissions as well NOT a good candidate for any controlled substance prescriptions at d/c no evidence of any withdrawal at this time (10) Constipation: Plan: based on x-rays opiate induced ordered senna for him but refusing it he states he is moving his bowels Plan Chronic stable medical conditions: * HTN - BPs mildly elevated; doubt he would be willing to take anything for it; consider clonidine patch - this would help compliance, and this might help mood swings - only if BPs are severely high * Tobacco use - nicotine patch Possible mood disorder, irritability Appreciate psychiatry consultation 06/[address] Kesslre -he's willing for trial of seroquel. 100 mg HS and 25 mg bid PRN -check QTC in 48h - ordered. There is a drug interaction with levaquin which also prolongs QTC, however QTC was acceptable in December last EKG dispo - discharge once ambulatory, options nil since he has refused to participate in therapy felisa can go to day program at out of the cold, and be on wait list for night senior living once it opens in the winter has resources to call for housing placement, unclear whether he is on the list yet or not. he is no longer welcome from the single [facility] that would have been an option for him because of stealing unwilling to move from [facility] because of the resources that he does have in place here Admission and Anticipated Discharge Date Admission Date: May 31, 2024 Subjective Very irritable this AM with me and constantly taking so was difficult for me to provide explanation for any of his questions or concerns Bursitis pain seems better because he is lying on his right hip without discomfort today and complains of pain but on his LEFT side today Requested again to see psychiatrist Physical Exam 2 Physical Exam: PHYSICAL EXAMINATION Last 24h vital signs reviewed, see documentation in flowsheet General: awake in paper scrubs and lying on right side in bed HEENT: Normocephalic, atraumatic, pupils round and equal, sclerae anicteric, no conjunctival injection, moist mucus membranes Lungs: Normal respiratory effort. Heart: deferred Abdomen: Soft, nondistended. Extremities: Warm, dry, well-perfused. No extremity edema. lying on R side today Moves around in bed pretty well, have not observed him OOB Neuro: irritable, fixed idea that hip pain is an infection, face symmetric, moves 4 extremities well Psych: irritable affect and behavior Results & Data Results & Data Vital Signs (Past 12 Hours) Vital Signs Temp Pulse Resp BP Pulse Ox O2 Del Method 06/10/24 12:22 36.7 C 96 H 18 182/85 H 98 Room Air 06/10/24 08:01 36.9 C 79 16 149/98 H 98 Room Air Laboratory Results 06/04/24 14:03 06/01/24 10:36 PG Care Time/CCT Total # of Minutes Spent Total Time Spent with Patient: Total time spent is greater than 50% in coordination of care (as documented) at patient's floor/unit and/or counseling patient: Coding Level of Care Code 37990 SUB INP/OBS CARE 2/35MIN Diagnoses Bursitis of right hip M70.71 Ambulatory dysfunction R26.2 Homelessness Z59.00 Osteomyelitis of vertebra M46.20 Tobacco dependence F17.200 Hypertension I10 Degenerative lumbar spinal stenosis M48.061 Neurogenic claudication due to lumbar spinal stenosis M48.062 Polysubstance abuse F19.10 Constipation K59.00
[2024-06-10] MEDS: QUEtiapine FUMARATE 100 MG TABLET PO SCH (20:57)
--- NOTE | 2024-06-11 12:24 | Hospitalist Progress Note ---
Date of Service June 11, 2024 Assessment & Plan (1) Bursitis of right hip: Plan: recent x-rays of R hip - mild-moderate OA changes; no fractures. CRP noted to be 0 on most recent blood work . ESR <30. Orthopedic consultation and recommendations appreciated. He received a steroid injection of bursa on 06/08. He refuses to consider a short course of prednisone therapy. Physical therapy has signed off the case because he refuses to cooperate. Continue current medical management (2) Ambulatory dysfunction: Plan: 2nd to RLE pain/weakness. He refuses to participate with physical therapy however (3) Homelessness: Plan: case management has met with him. He does not seem to be interested in going to a personal prison. (4) Osteomyelitis of vertebra: Plan: Chronic. Cont oral doxycycline and levofloxacin daily for prophylaxis. He sees infectious disease, Dr. Malina Pacheco, on an outpatient basis. Last seen in January 2024. At that time his CRP 0, Sed rate low 20s. MRI lumbar spine without features of epidural abscess or active discitis . CT pelvis without psoas abscess (5) Tobacco dependence: Plan: Tobacco cessation recommended (6) Hypertension: Plan: Stable. Continue current medical management (7) Degenerative lumbar spinal stenosis: Plan: likely cause of RLE pain/weakness. History of surgical intervention 09/2020 - #1 removal of posterior segmental instrumentation L3-S1. #2 exploration of fusion L3-S1. #3 lumbar decompression with bilateral medial facetectomies and foraminotomies L1-2 and L2-3. #4 posterior spinal fusion L2-3 L3-4. #5 placement posterior instrumentation L2-4 including a cross-link. #6 interbody fusion L2-3 per #7 placement peek cage 12 x 26 mm L2-3. #8 placement locally harvested morselized autograft in the posterior lateral gutters. #9 placement infuse collagen sponge, master graft in the posterior gutters and ostial amp interbody space. Based on the severity of findings at L1-L2, if he needs surgery, this should be done at a tertiary care center (8) Neurogenic claudication due to lumbar spinal stenosis: Plan: Refuses to consider medication management. Tramadol prn pain, baclofen 10mg BID for spasms (9) Polysubstance abuse: Plan: +cocaine. +THC. NOT a good candidate for any controlled substance prescriptions at /c. No evidence of any withdrawal at this time (10) Constipation: Plan: Likely opiate induced. Refusing laxative therapy Plan He placement is unlikely as he is refusing to participate with OT/PT. The only option will probably be to discharge him from acute care and he can return to his prior living arrangements. Admission and Anticipated Discharge Date Admission Date: May 31, 2024 Subjective Awake and alert. Uncooperative. He refuses to try low-dose prednisone in tapering dose fashion for the hip bursitis. He refuses to consider trial of trazodone at bedtime to replace Seroquel to help with sleeping. Physical therapy has signed off the case because he refuses to participate. Review of Systems 2 Review of Systems: The patient refuses to answer any questions regarding review of systems Physical Exam 2 Physical Exam: The patient refuses to be examined Results & Data Results & Data Vital Signs (Past 12 Hours) Vital Signs Temp Pulse Resp BP Pulse Ox O2 Del Method 06/11/24 07:17 36.5 C 80 18 140/85 97 Room Air Laboratory Results 06/04/24 14:03 06/01/24 10:36 PG Care Time/CCT Total # of Minutes Spent Total Time Spent with Patient: Total time spent is greater than 50% in coordination of care (as documented) at patient's floor/unit and/or counseling patient: Coding Level of Care Code 44951 SUB INP/OBS CARE 3/50MIN Diagnoses Bursitis of right hip M70.71 Ambulatory dysfunction R26.2 Homelessness Z59.00 Osteomyelitis of vertebra M46.20 Tobacco dependence F17.200 Hypertension I10 Degenerative lumbar spinal stenosis M48.061 Neurogenic claudication due to lumbar spinal stenosis M48.062 Polysubstance abuse F19.10 Constipation K59.00
--- NOTE | 2024-06-11 12:50 | Psychiatric Progress Note ---
Date of Service June 11, 2024 Impression / Recommendations Impression 64 yo man with a history of osteomyelitis on chronic abx, HTN, malnourishment, iron deficiency anemia, and polysubstance use disorder admitted medically for ambulatory dysfunction and hip pain. Psychiatry consulted for question of mood disorder/delusions. Diagnostically unclear but suspect likely a combination of antisocial personality disorder, possible delusional disorder vs cocaine withdrawal mood effects, bereavement vs adjustment disorder with depressed mood (doesn't present with typical symptoms of depression but his irritability could be due to depression),polysubstance use disorder, and possible malingering. A: Ongoing periods of irritability with a lot of help seeking/help rejecting such as refusing Seroquel after making demands to meet with psychiatry and now refusing to meet with me again. Suspect much of this is driven by antisocial and cluster B traits as well as malingering in addition to his pain likely contributing to worsened irritability and substance withdrawal. Perhaps he would be agreeable to residential substance use treatment, I suspect this could be very beneficial and helpful for him. Overall, I spent a total of 10 minutes with this case including review of chart records, review of labwork, direct evaluation of the patient at bedside, and documentation in the electronic health record. (1) Unspecified mood [affective] disorder: (2) Antisocial personality disorder: (3) Polysubstance use disorder: (4) Depression: Plan -Consider trial of Seroquel 100mg po HS with 25mg po BID prn for agitation/irritability -Check QTc after 2-3 days of Seroquel use to ensure it remains <500ms. If QTc becomes >500ms then discontinue Seroquel given risks would outweigh potential benefits at that point Interval History Identifying Information 64 yo man with a history of osteomyelitis on chronic abx, HTN, malnourishment, iron deficiency anemia, and polysubstance use disorder admitted medically for ambulatory dysfunction and hip pain. Psychiatry consulted for question of mood disorder/delusions. Chief Complaint "What do you want? I don't want to talk to you". Subjective Subjective Patient was seen & assessed and interval progress reviewed. Refused Seroquel last evening. Irritable, declines to speak with me, requests that I leave. Physical Exam Vital Signs (Past 24 Hours) Last Vital Signs Temp 36.5 C 06/11/24 07:17 Pulse 80 06/11/24 07:17 Resp 18 06/11/24 07:17 BP 140/85 06/11/24 07:17 Pulse Ox 97 06/11/24 07:17 O2 Del Method Room Air 06/11/24 07:17 Results & Data ([facility]) Current Inpatient Medications Current Inpatient Medications: Current Inpatient Medications Doxycycline Hyclate (Doxycycline Hyclate 100 Mg Cap) 100 mg PO DAILY [facility] Stop: 07/05/24 08:59 Last Admin: 06/11/24 08:26 Dose: 100 mg Levofloxacin (Levofloxacin 750 Mg Tab) 750 mg PO Q2D@1100 CHIARA; Protocol Stop: 07/04/24 10:59 Last Admin: 06/10/24 14:05 Dose: 750 mg Lidocaine (Lidocaine 5% 1 Patch) 2 patch TD QPM [facility] Stop: 07/08/24 20:59 Last Admin: 06/10/24 20:57 Dose: Not Given Miscellaneous (Remove Nicoderm Patch) 1 each N/A DAILY@0859 [facility] Stop: 07/01/24 08:58 Last Admin: 06/11/24 08:27 Dose: 1 each Miscellaneous (Remove Lidoderm Patch) 1 each N/A DAILY@2100 [facility] Stop: 07/09/24 08:59 Last Admin: 06/10/24 20:57 Dose: Not Given Nicotine (Nicotine 21 Mg/24 Hr Tdsy) 1 patch TD QAM [facility] Stop: 06/30/24 18:44 Last Admin: 06/11/24 08:25 Dose: 1 patch Pantoprazole Sodium (Pantoprazole 40 Mg Tab) 40 mg PO DAILY [facility] Stop: 07/01/24 08:59 Last Admin: 06/11/24 08:27 Dose: Not Given Quetiapine Fumarate (Quetiapine Fumarate 100 Mg Tablet) 100 mg PO HS [facility] Stop: 07/10/24 20:59 Last Admin: 06/10/24 20:57 Dose: Not Given Quetiapine Fumarate (Quetiapine Fumarate 25 Mg Tablet) 25 mg PO BID PRN PRN Reason: agitation or anxiety Stop: 07/10/24 20:59 Sennosides (Senna 8.6 Mg Tab) 17.2 mg PO QAM [facility] Stop: 07/07/24 08:59 Last Admin: 06/11/24 08:27 Dose: Not Given Tramadol HCl (Tramadol Hcl 50 Mg Tablet) 100 mg PO Q4H PRN PRN Reason: Pain Stop: 07/02/24 20:24 Last Admin: 06/11/24 06:19 Dose: 100 mg
--- NOTE | 2024-06-12 10:40 | Hospitalist Progress Note ---
Date of Service June 12, 2024 Assessment & Plan (1) Bursitis of right hip: Plan: recent x-rays of R hip - mild-moderate OA changes; no fractures. CRP noted to be 0 on most recent blood work . ESR <30. Orthopedic consultation and recommendations appreciated. He received a steroid injection of bursa on 06/08. He refuses to consider a short course of prednisone therapy. Physical therapy has signed off the case because he refuses to cooperate. Continue current medical management (2) Ambulatory dysfunction: Plan: 2nd to RLE pain/weakness. He refuses to participate with physical therapy however (3) Homelessness: Plan: case management has met with him. He does not seem to be interested in going to a personal [facility]. (4) Osteomyelitis of vertebra: Plan: Chronic. Cont oral doxycycline and levofloxacin daily for prophylaxis. He sees infectious disease, Dr. Malina Pacheco, on an outpatient basis. Last seen in January 2024. At that time his CRP 0, Sed rate low 20s. MRI lumbar spine without features of epidural abscess or active discitis . CT pelvis without psoas abscess (5) Tobacco dependence: Plan: Tobacco cessation recommended (6) Hypertension: Plan: Stable. Continue current medical management (7) Degenerative lumbar spinal stenosis: Plan: likely cause of RLE pain/weakness. History of surgical intervention 09/2020 - #1 removal of posterior segmental instrumentation L3-S1. #2 exploration of fusion L3-S1. #3 lumbar decompression with bilateral medial facetectomies and foraminotomies L1-2 and L2-3. #4 posterior spinal fusion L2-3 L3-4. #5 placement posterior instrumentation L2-4 including a cross-link. #6 interbody fusion L2-3 per #7 placement peek cage 12 x 26 mm L2-3. #8 placement locally harvested morselized autograft in the posterior lateral gutters. #9 placement infuse collagen sponge, master graft in the posterior gutters and ostial amp interbody space. Based on the severity of findings at L1-L2, if he needs surgery, this should be done at a tertiary care center (8) Neurogenic claudication due to lumbar spinal stenosis: Plan: Refuses to consider medication management. Tramadol prn pain, baclofen 10mg BID for spasms (9) Polysubstance abuse: Plan: +cocaine. +THC. NOT a good candidate for any controlled substance prescriptions at /c. No evidence of any withdrawal at this time (10) Constipation: Plan: Likely opiate induced. Refusing laxative therapy Plan The patient has completely uncooperative with all attempts to receive assistance, psychiatric recommendations, physical therapy. He will be discharged today, June 12 Admission and Anticipated Discharge Date Admission Date: May 31, 2024 Subjective The patient is uncooperative and refusing to take medication recommended by psychiatry and refusing to participate with therapies. There is nothing we can do for him on an inpatient setting. He will be discharged to his previous living arrangements today, June 12 Review of Systems Review of Systems: The patient refuses to answer any questions regarding review of systems Physical Exam Physical Exam: The patient refuses to be examined Results & Data Results & Data Vital Signs (Past 12 Hours) Vital Signs Temp Pulse Resp BP Pulse Ox O2 Del Method 06/12/24 07:55 36.7 C 89 18 146/74 H 97 Room Air PG Care Time/CCT Total # of Minutes Spent Total Time Spent with Patient: Total time spent is greater than 50% in coordination of care (as documented) at patient's floor/unit and/or counseling patient: Coding Level of Care Code 22140 SUB INP/OBS CARE 2/35MIN Diagnoses Bursitis of right hip M70.71 Ambulatory dysfunction R26.2 Homelessness Z59.00 Osteomyelitis of vertebra M46.20 Tobacco dependence F17.200 Hypertension I10 Degenerative lumbar spinal stenosis M48.061 Neurogenic claudication due to lumbar spinal stenosis M48.062 Polysubstance abuse F19.10 Constipation K59.00
--- NOTE | 2024-06-12 10:43 | Discharge Summary ---
Discharge Summary Date of Service June 12, 2024 Principal Dx & Hospital Course #1 = Principal Diagnosis (1) Bursitis of right hip: recent x-rays of R hip - mild-moderate OA changes; no fractures. CRP noted to be 0 on most recent blood work . ESR <30. Orthopedic consultation and recommendations appreciated. He received a steroid injection of bursa on 06/08. He refuses to consider a short course of prednisone therapy. Physical therapy has signed off the case because he refuses to cooperate. Continue current medical management (2) Ambulatory dysfunction: 2nd to RLE pain/weakness. He refuses to participate with physical therapy however (3) Homelessness: case management has met with him. He does not seem to be interested in going to a personal retirement. (4) Osteomyelitis of vertebra: Chronic. Cont oral doxycycline and levofloxacin daily for prophylaxis. He sees infectious disease, Dr. Malina Pacheco, on an outpatient basis. Last seen in January 2024. At that time his CRP 0, Sed rate low 20s. MRI lumbar spine without features of epidural abscess or active discitis . CT pelvis without psoas abscess (5) Tobacco dependence: Tobacco cessation recommended (6) Hypertension: Stable. Continue current medical management (7) Degenerative lumbar spinal stenosis: likely cause of RLE pain/weakness. History of surgical intervention 09/2020 - #1 removal of posterior segmental instrumentation L3-S1. #2 exploration of fusion L3-S1. #3 lumbar decompression with bilateral medial facetectomies and foraminotomies L1-2 and L2-3. #4 posterior spinal fusion L2-3 L3-4. #5 placement posterior instrumentation L2-4 including a cross-link. #6 interbody fusion L2-3 per #7 placement peek cage 12 x 26 mm L2-3. #8 placement locally harvested morselized autograft in the posterior lateral gutters. #9 placement infuse collagen sponge, master graft in the posterior gutters and ostial amp interbody space. Based on the severity of findings at L1-L2, if he needs surgery, this should be done at a tertiary care center (8) Neurogenic claudication due to lumbar spinal stenosis: Refuses to consider medication management. Tramadol prn pain, baclofen 10mg BID for spasms (9) Polysubstance abuse: +cocaine. +THC. NOT a good candidate for any controlled substance prescriptions at d/c. No evidence of any withdrawal at this time (10) Constipation: Likely opiate induced. Refusing laxative therapy Plan The patient is completely uncooperative with all attempts to receive assistance, psychiatric recommendations, physical therapy. He will be discharged today, June 12 Admission HPI Per Admitting Provider Tigre is a 64 y/o male with a PMHx of osteomyelitis on chronic abx, HTN, malnourishment, iron deficiency anemia, and polysubstance use disorder who presented to the [facility] ED on 05/31/2024 via EMS due to acute onset of right lower extremity pain causing ambulatory dysfunction. Per the ER, the patient is currently homeless and was sleeping on a bench last night. When he woke he was experiencing severe right hip/right lower extremity pain preventing him from being able to walk so his friend called EMS. He remained stable in the ED. Labs were significant for a leukocytosis of 10 with neutrophil predominance of 8, stable hemoglobin at 11.5. X-ray of the right hip and pelvis was read as negative for acute findings. CT of the pelvis was read as negative for acute findings. Lumbar spine CT was read as negative for acute fractures. Postoperative changes as described above. Above findings consistent with a chronic discitis/osteomyelitis at the L1-L2 level which is similar to prior study. There is a 9 mm of retropulsion of the posterior cortex/fragment of L1 resulting in moderate to severe central canal narrowing. This is similar to prior study. Prior to admission the patient was given ordered 1 g IV Tylenol that he refused. Patient was lying in bed in no acute distress at the time of exam. Confirms the above history. States that he is currently following with Dr. Pacheco as his PCP. Explains that he ran out of his home medication approximately 2 weeks ago. Describes his right lower extremity pain as sharp/burning started in the right hip/posterior thigh and radiating down the lateral right lower extremity. Denies recent fever, chills, chest pain, shortness of breath, abdominal pain, nausea/vomiting, dysuria/hematuria, loss of bowel or bladder function, saddle anesthesia, recent trauma. We attempted to get him to stand to see if he could safely ambulate but he was in too much pain to safely stand out of bed. He is a full code and would want his friend, Kristin Ha to make medical decisions for him if he cannot make them himself. Please refer to Dr. Barrios's attestation for any changes to the treatment plan Discharge Exam The patient refuses to be examined Discharge Plan Discharge Items Patient Disposition: Home - Self-Care Reason For Visit: RIGHT LEG PAIN, AMBULATORY DYSFUNCTION Discharge Diagnosis: Suspected bursitis right hip, ambulatory dysfunction Activity: Resume your previous activity Non-emergency contact: Primary Care Provider Call non-emergency contact if: your symptoms worsen Follow-up/Referrals: PCP,NO [Primary Care Provider] - Diet: Regular Addtl Attending Provider Instructions: All medications remain the same Pending Studies at Discharge: No Stand-Alone Forms: [employer], Smoking Cessation Medications and DC Order Prescriptions: New levofloxacin 750 mg Tablet 750 mg PO Q2D@1100 Qty: 0 0RF doxycycline hyclate 100 mg Capsule 100 mg PO DAILY Qty: 0 0RF Continued cyclobenzaprine 10 mg tablet 10 mg PO TID PRN (Reason: muscle spasms) Rx Instructions: filled 02/22/2024 for 30 days Discharge Orders: Discharge Order (Routine); Ordered 06/12/24 Ordered By: Franklin Baez Admission Data Admit Date/Time: 05/31/24 14:32 Attending Provider: Franklin Baez Admit Provider: Allan Barrios Primary Care Provider: PCP,NO Other Providers: Allan Barrios; Keven Garcia; [facility]; [facility]; Perlita Kessler; Jayson Cortes; Ever Lerner Jr; Shannon Carney; Elizabeth Roldan; Jameson Nunes Hospital Stay Data Consultations 05/31/24 14:24 ED Decision to Admit Stat 06/05/24 11:12 Burn CD for patient Routine 06/07/24 15:55 Consult Orthopedic Surgery Routine 06/10/24 09:50 Consult Psychiatry Routine Diagnostic Imagining Performed 05/31/24 08:52 CT lumbar spine wo con Stat CT pelvis wo con Stat 06/02/24 20:23 CT pelvis wo con Routine 06/03/24 20:21 MR lumbar spine wo/w con Routine Pending Results Patient Have Any Pending Studies at Discharge: No Discharge Instructions Given to Patient (Per Discharging Provider) All medications remain the same Total Time Total Time Spent Total Time Spent (In Minutes): 45 minutes Coding Level of Care Code 37494 INP/OBS DISCH >30 MIN Diagnoses Bursitis of right hip M70.71 Ambulatory dysfunction R26.2 Homelessness Z59.00 Osteomyelitis of vertebra M46.20 Tobacco dependence F17.200 Hypertension I10 Degenerative lumbar spinal stenosis M48.061 Neurogenic claudication due to lumbar spinal stenosis M48.062 Polysubstance abuse F19.10 Constipation K59.00
--- NOTE | 2024-06-12 12:03 | Hospitalist Progress Note ---
Date of Service June 12, 2024 Assessment & Plan (1) Bursitis of right hip: Plan: recent x-rays of R hip - mild-moderate OA changes; no fractures. CRP noted to be 0 on most recent blood work . ESR <30. Orthopedic consultation and recommendations appreciated. He received a steroid injection of bursa on 06/08. He refuses to consider a short course of prednisone therapy. Physical therapy has signed off the case because he refuses to cooperate. Continue current medical management (2) Ambulatory dysfunction: Plan: 2nd to RLE pain/weakness. He refuses to participate with physical therapy however (3) Homelessness: Plan: case management has met with him. He does not seem to be interested in going to a personal shelter. (4) Osteomyelitis of vertebra: Plan: Chronic. Cont oral doxycycline and levofloxacin daily for prophylaxis. He sees infectious disease, Dr. Malina Pacheco, on an outpatient basis. Last seen in January 2024. At that time his CRP 0, Sed rate low 20s. MRI lumbar spine without features of epidural abscess or active discitis . CT pelvis without psoas abscess (5) Tobacco dependence: Plan: Tobacco cessation recommended (6) Hypertension: Plan: Stable. Continue current medical management (7) Degenerative lumbar spinal stenosis: Plan: likely cause of RLE pain/weakness. History of surgical intervention 09/2020 - #1 removal of posterior segmental instrumentation L3-S1. #2 exploration of fusion L3-S1. #3 lumbar decompression with bilateral medial facetectomies and foraminotomies L1-2 and L2-3. #4 posterior spinal fusion L2-3 L3-4. #5 placement posterior instrumentation L2-4 including a cross-link. #6 interbody fusion L2-3 per #7 placement peek cage 12 x 26 mm L2-3. #8 placement locally harvested morselized autograft in the posterior lateral gutters. #9 placement infuse collagen sponge, master graft in the posterior gutters and ostial amp interbody space. Based on the severity of findings at L1-L2, if he needs surgery, this should be done at a tertiary care center (8) Neurogenic claudication due to lumbar spinal stenosis: Plan: Refuses to consider medication management. Tramadol prn pain, baclofen 10mg BID for spasms (9) Polysubstance abuse: Plan: +cocaine. +THC. NOT a good candidate for any controlled substance prescriptions at /c. No evidence of any withdrawal at this time (10) Constipation: Plan: Likely opiate induced. Refusing laxative therapy Plan The patient is completely uncooperative with all attempts to receive assistance, psychiatric recommendations, physical therapy. He has been discharged today, June 12. However, he has chosen to appeal his discharge Admission and Anticipated Discharge Date Admission Date: May 31, 2024 Subjective The patient is uncooperative and refusing to take medication recommended by psychiatry and refusing to participate with therapies. There is nothing we can do for him on an inpatient setting. He will be discharged to his previous living arrangements today, June 12. He is appealing his discharge so he will have to stay here until last completed Review of Systems Review of Systems: The patient refuses to answer any questions regarding review of systems Physical Exam Physical Exam: The patient refuses to be examined Results & Data Results & Data Vital Signs (Past 12 Hours) Vital Signs Temp Pulse Resp BP Pulse Ox O2 Del Method 06/12/24 07:55 36.7 C 89 18 146/74 H 97 Room Air PG Care Time/CCT Total # of Minutes Spent Total Time Spent with Patient: Total time spent is greater than 50% in coordination of care (as documented) at patient's floor/unit and/or counseling patient: Coding Level of Care Code 77288 SUB INP/OBS CARE 2/35MIN Diagnoses Bursitis of right hip M70.71 Ambulatory dysfunction R26.2 Homelessness Z59.00 Osteomyelitis of vertebra M46.20 Tobacco dependence F17.200 Hypertension I10 Degenerative lumbar spinal stenosis M48.061 Neurogenic claudication due to lumbar spinal stenosis M48.062 Polysubstance abuse F19.10 Constipation K59.00
[2024-06-13 09:53] VITALS: BP 171/77; RESP 18; TEMP 98.3; O2SAT 95
--- NOTE | 2024-06-13 15:15 | Hospitalist Progress Note ---
Date of Service June 13, 2024 Assessment & Plan (1) Bursitis of right hip: Plan: recent x-rays of R hip - mild-moderate OA changes; no fractures. CRP noted to be 0 on most recent blood work . ESR <30. Orthopedic consultation and recommendations appreciated. He received a steroid injection of bursa on 06/08. He refuses to consider a short course of prednisone therapy. Physical therapy has signed off the case because he refuses to cooperate. Continue current medical management (2) Ambulatory dysfunction: Plan: 2nd to RLE pain/weakness. He refuses to participate with physical therapy however (3) Homelessness: Plan: case management has met with him. He does not seem to be interested in going to a personal [facility]. (4) Osteomyelitis of vertebra: Plan: Chronic. Cont oral doxycycline and levofloxacin daily for prophylaxis. He sees infectious disease, Dr. Malina Pacheco, on an outpatient basis. Last seen in January 2024. At that time his CRP 0, Sed rate low 20s. MRI lumbar spine without features of epidural abscess or active discitis . CT pelvis without psoas abscess (5) Tobacco dependence: Plan: Tobacco cessation recommended (6) Hypertension: Plan: Stable. Continue current medical management (7) Degenerative lumbar spinal stenosis: Plan: likely cause of RLE pain/weakness. History of surgical intervention 09/2020 - #1 removal of posterior segmental instrumentation L3-S1. #2 exploration of fusion L3-S1. #3 lumbar decompression with bilateral medial facetectomies and foraminotomies L1-2 and L2-3. #4 posterior spinal fusion L2-3 L3-4. #5 placement posterior instrumentation L2-4 including a cross-link. #6 interbody fusion L2-3 per #7 placement peek cage 12 x 26 mm L2-3. #8 placement locally harvested morselized autograft in the posterior lateral gutters. #9 placement infuse collagen sponge, master graft in the posterior gutters and ostial amp interbody space. Based on the severity of findings at L1-L2, if he needs surgery, this should be done at a tertiary care center (8) Neurogenic claudication due to lumbar spinal stenosis: Plan: Refuses to consider medication management. Tramadol prn pain, baclofen 10mg BID for spasms (9) Polysubstance abuse: Plan: +cocaine. +THC. NOT a good candidate for any controlled substance prescriptions at /c. No evidence of any withdrawal at this time (10) Constipation: Plan: Likely opiate induced. Refusing laxative therapy Plan The patient is completely uncooperative with all attempts to receive assistance, psychiatric recommendations, physical therapy. He has been discharged June 12. However, he has chosen to appeal his discharge. I am being told by the special education case manager that his appeal the denial. He will have to leave 06/14 noon. Admission and Anticipated Discharge Date Admission Date: May 31, 2024 Subjective Patient appears to be irritable. Review of Systems Review of Systems: All systems reviewed & are unremarkable except as noted in Subjective Physical Exam Physical Exam: General: Awake, conversant Heart: S1, S2/regular rate and rhythm, no murmur rubs or gallops Lungs: Clear to auscultation bilaterally. Normal effort Abdomen: Soft/nontender/nondistended. No hepatosplenomegaly Extremities: No clubbing/cyanosis. No edema Behavior: Appropriate, cooperative Results & Data Results & Data Vital Signs (Past 12 Hours) Vital Signs Temp Pulse Resp BP Pulse Ox O2 Del Method 06/13/24 09:52 36.8 C 99 H 18 171/77 H 95 Room Air 06/13/24 06:31 158/78 H PG Care Time/CCT Total # of Minutes Spent Total Time Spent with Patient: Total time spent is greater than 50% in coordination of care (as documented) at patient's floor/unit and/or counseling patient: Coding Level of Care Code 59110 SUB INP/OBS CARE 2/35MIN Diagnoses Bursitis of right hip M70.71 Ambulatory dysfunction R26.2 Homelessness Z59.00 Osteomyelitis of vertebra M46.20 Tobacco dependence F17.200 Hypertension I10 Degenerative lumbar spinal stenosis M48.061 Neurogenic claudication due to lumbar spinal stenosis M48.062 Polysubstance abuse F19.10 Constipation K59.00
[2024-06-14 07:36] VITALS: PULSE 96
--- NOTE | 2024-06-14 14:19 | Discharge Summary ---
Date of Service June 14, 2024 Admission HPI Per Admitting Provider Tigre is a 64 y/o male with a PMHx of osteomyelitis on chronic abx, HTN, malnourishment, iron deficiency anemia, and polysubstance use disorder who presented to the [facility] ED on 05/31/2024 via EMS due to acute onset of right lower extremity pain causing ambulatory dysfunction. Per the ER, the patient is currently homeless and was sleeping on a bench last night. When he woke he was experiencing severe right hip/right lower extremity pain preventing him from being able to walk so his friend called EMS. He remained stable in the ED. Labs were significant for a leukocytosis of 10 with neutrophil predominance of 8, stable hemoglobin at 11.5. X-ray of the right hip and pelvis was read as negative for acute findings. CT of the pelvis was read as negative for acute findings. Lumbar spine CT was read as negative for acute fractures. Postoperative changes as described above. Above findings consistent with a chronic discitis/osteomyelitis at the L1-L2 level which is similar to michael or study. There is a 9 mm of retropulsion of the posterior cortex/fragment of L1 resulting in moderate to severe central canal narrowing. This is similar to prior study. Prior to admission the patient was given ordered 1 g IV Tylenol that he refused. Patient was lying in bed in no acute distress at the time of exam. Confirms the above history. States that he is currently following with Dr. Pacheco as his PCP. Explains that he ran out of his home medication approximately 2 weeks ago. Describes his right lower extremity pain as sharp/burning started in the right hip/posterior thigh and radiating down the lateral right lower extremity. Denies recent fever, chills, chest pain, shortness of breath, abdominal pain, nausea/vomiting, dysuria/hematuria, loss of bowel or bladder function, saddle anesthesia, recent trauma. We attempted to get him to stand to see if he could safely ambulate but he was in too much pain to safely stand out of bed. He is a full code and would want his friend, Kristin Ha to make medical decisions for him if he cannot make them himself. Please refer to Dr. Barrios's attestation for any changes to the treatment plan Principal Diagnosis Suspected bursitis right hip, ambulatory dysfunction Discharge Exam Patient was not examined on the day of discharge Discharge Data Allergies Allergy/AdvReac Type Severity Reaction Status Date / Time gabapentin Allergy Severe SHORT OF Verified 05/31/24 15:35 BREATH cat dander Allergy Intermediate itchy Verified 05/31/24 15:35 eyes, sneezing codeine AdvReac Intermediate GI upset Verified 05/31/24 15:35 Consultations 05/31/24 14:24 ED Decision to Admit Stat 06/05/24 11:12 Burn CD for patient Routine 06/07/24 15:55 Consult Orthopedic Surgery Routine 06/10/24 09:50 Consult Psychiatry Routine Ordered Studies 05/31/24 08:52 CT lumbar spine wo con Stat CT pelvis wo con Stat 06/02/24 20:23 CT pelvis wo con Routine 06/03/24 20:21 MR lumbar spine wo/w con Routine Hospital Course (1) Bursitis of right hip: recent x-rays of R hip - mild-moderate OA changes; no fractures. CRP noted to be 0 on most recent blood work . ESR <30. Orthopedic consultation and recommendations appreciated. He received a steroid injection of bursa on 06/08. He refuses to consider a short course of prednisone therapy. Physical therapy has signed off the case because he refuses to cooperate. Continue current medical management (2) Ambulatory dysfunction: 2nd to RLE pain/weakness. He refuses to participate with physical therapy however (3) Homelessness: case management has met with him. He does not seem to be interested in going to a personal skilled nursing. (4) Osteomyelitis of vertebra: Chronic. Cont oral doxycycline and levofloxacin daily for prophylaxis. He sees infectious disease, Dr. Malina Pacheco, on an outpatient basis. Last seen in January 2024. At that time his CRP 0, Sed rate low 20s. MRI lumbar spine without features of epidural abscess or active discitis . CT pelvis without psoas abscess (5) Tobacco dependence: Tobacco cessation recommended (6) Hypertension: Stable. Continue current medical management (7) Degenerative lumbar spinal stenosis: likely cause of RLE pain/weakness. History of surgical intervention 09/2020 - #1 removal of posterior segmental instrumentation L3-S1. #2 exploration of fusion L3-S1. #3 lumbar decompression with bilateral medial facetectomies and foraminotomies L1-2 and L2-3. #4 posterior spinal fusion L2-3 L3-4. #5 placement posterior instrumentation L2-4 including a cross-link. #6 interbody fusion L2-3 per #7 placement peek cage 12 x 26 mm L2-3. #8 placement locally harvested morselized autograft in the posterior lateral gutters. #9 placement infuse collagen sponge, master graft in the posterior gutters and ostial amp interbody space. Based on the severity of findings at L1-L2, if he needs surgery, this should be done at a tertiary care center (8) Neurogenic claudication due to lumbar spinal stenosis: Refuses to consider medication management. Tramadol prn pain, baclofen 10mg BID for spasms (9) Polysubstance abuse: +cocaine. +THC. NOT a good candidate for any controlled substance prescriptions at d/c. No evidence of any withdrawal at this time (10) Constipation: Likely opiate induced. Refusing laxative therapy Plan The patient is completely uncooperative with all attempts to receive assistance, psychiatric recommendations, physical therapy. He was officially discharged on June 12. However he appealed the discharge. His appeal got denied. He was made to leave today. Nothing changed medically between June 12 and today. Total Time Total Time Spent Total Time Spent (In Minutes): 25 Discharge Plan Discharge Items Patient Disposition: Home - Self-Care Reason For Visit: RIGHT LEG PAIN, AMBULATORY DYSFUNCTION Discharge Diagnosis: Suspected bursitis right hip, ambulatory dysfunction Activity: Resume your previous activity Non-emergency contact: Primary Care Provider Call non-emergency contact if: your symptoms worsen Follow-up/Referrals: PCP,NO [Primary Care Provider] - Diet: Regular Addtl Attending Provider Instructions: All medications remain the same Pending Studies at Discharge: No Stand-Alone Forms: [employer], Smoking Cessation Medications and DC Order Prescriptions: New doxycycline hyclate 100 mg Capsule 100 mg PO DAILY Qty: 0 0RF levofloxacin 750 mg Tablet 750 mg PO Q2D@1100 Qty: 0 0RF Continued cyclobenzaprine 10 mg tablet 10 mg PO TID PRN (Reason: muscle spasms) Rx Instructions: filled 02/22/2024 for 30 days Discharge Orders: Discharge Order (Routine); Ordered 06/12/24 Ordered By: Franklin Baez Admission Data Admit Date/Time: 05/31/24 14:32 Attending Provider: Moon Arroyo Admit Provider: Allan Barrios Primary Care Provider: PCP,NO Other Providers: Allan Barrios; Keven Garcia; [facility]; [facility]; Perlita Kessler; Jayson Cortes; Ever Lerner Jr; Shannon Carney; Elizabeth Roldan; Jameson Nunes Other Interventions: Discharge Summary Assessment (RN) Last Done: 06/14/24 07:35
== END 2024-06-14 09:55 | disposition home or self-care (01) | DRG 552 ==
LOC: ED 08:16 → SUATTDRO 14:32 → 3W 14:32 → INTOOBSV 14:32 → 3W 16:04

== ENCOUNTER 2025-04-16 00:23 | Inpatient (IN) ==
--- NOTE | 2025-04-16 00:37 | Emergency Department Note ---
History of Present Illness General Chief complaint: Shortness of Breath/Dyspnea Stated complaint: SOB, Chest Tightness History of Present Illness 64 y/o male with a PMHx of osteomyelitis on chronic abx, HTN, malnourishment, iron deficiency anemia, and polysubstance use disorder presents to the ER who is homeless complaining of shortness of breath and now chest pain. Patient denies fever, chills, abdominal pain, vomiting, diarrhea or any other medical complaints. He is requesting something to eat and drink. He brought all his belongings with him. Home Medications Medication Instructions Recorded Confirmed Type metoprolol succinate 25 mg 25 mg PO HS #90 tabs 11/04/24 04/16/25 Rx tablet,extended release 24 hr rosuvastatin 5 mg tablet (Crestor) 5 mg PO DAILY #90 tabs 11/04/24 04/16/25 Rx cyclobenzaprine 10 mg tablet 10 mg PO TID PRN muscle spasms #90 01/07/25 04/16/25 Rx tabs tramadol 50 mg tablet 50 mg PO TID PRN Pain #100 tabs 01/07/25 04/16/25 Rx Allergies Allergy/AdvReac Type Severity Reaction Status Date / Time gabapentin Allergy Severe SHORT OF Verified 11/04/24 12:54 BREATH cat dander Allergy Intermediate itchy Verified 11/04/24 12:54 eyes, sneezing codeine AdvReac Intermediate GI upset Verified 11/04/24 12:54 Past Med/Surg History Problem List (Updated 04/16/25 @ 03:49 by Lolis Issa PA-C) Elevated troponin (Acute) Chest pain (Acute) Cardiovascular disease (Chronic) Diabetes mellitus (Chronic) HTN (hypertension) (Chronic) Iron deficiency anemia Homeless (Chronic) Anemia (Acute) Hyperglycemia Insomnia Chronic low back pain (Chronic) LVH (left ventricular hypertrophy) (Chronic) severe 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) Lumbar spinal stenosis (Chronic 04/19/14) Medical History Contact with metalworking machinery as cause of accidental injury Wernicke encephalopathy Closed T3 fracture Screening for osteoporosis Hardware failure Diastolic dysfunction Closed fracture of left zygomatic arch Depression Antisocial personality disorder Unspecified mood [affective] disorder Constipation Polysubstance abuse Degenerative lumbar spinal stenosis Osteomyelitis of vertebra Homelessness Polysubstance use disorder Neurogenic claudication due to lumbar spinal stenosis Hypokalemia Elevated CPK Lumbar spinal stenosis Medical non-compliance Psoas abscess Lower back pain Discitis Encephalopathy Rib pain on left side Hyperglycemia Blood loss anemia LVH (left ventricular hypertrophy) Rib fracture left sided, remotely, healed without intervention- does have residual pain over area Obesity Osteoarthritis Hypertension Surgical History History of arthroscopy of shoulder left History of knee replacement right History of back surgery x5 total S/P TKR (total knee replacement) Family History Denies family history of Ovarian cancer Prostate cancer Myocardial infarction Breast cancer Colorectal cancer Social History Smoking Status: Current every day smoker Tobacco Type: Cigarettes Age Started Using Tobacco: 34; packs per day: 0.25; Second Hand Exposure: Yes; Do You Dip or Chew Tobacco: No; Hx Alcohol Use: Yes Alcohol type: beer Hx Substance Use: Yes Prescribed Medications: Marijuana Last Used Substance: Days (ago) Last Used Substance Other:: UDS + cocaine Preferred Language: Hungarian Communication Ability: Effective Antichecking Iron Worker Required: No Beliefs That Will Affect Care: None marital status: Single Current Living Situation: Alone Current Living Situation Comment: Patient lives alone in an apartment. Expressed that his housing is unsafe current occupational status: unemployed Feels Safe at Home: No Is there a partner from a previous relationship who is making you feel unsafe now?: No Dental Care, Regularly: No Physical Activity Frequency: Does not Exercise Seatbelt Use: always Assistive Devices: Cane Review of Systems A total of 10 systems reviewed and were otherwise negative Physical Exam Vital Signs Vital Signs - 24 hr 04/16/25 00:30 04/16/25 00:33 04/16/25 00:37 Temperature 36.5 C Temperature Source Oral Pulse Rate 97 H 97 H Pulse Rate [Apical] Respiratory Rate 14 Respiratory Effort / Characteristics Non-Labored Spontaneous Respiratory Depth Normal Respiratory Pattern Regular Blood Pressure 166/108 H Blood Pressure [Right Arm] Blood Pressure Mean 127 Blood Pressure Mean [Right Arm] Blood Pressure Position [Right Arm] Pulse Oximetry 95 95 Oxygen Delivery Method Room Air Room Air Oxygen Flow Rate Sepsis Recent Fever Within 48 Hours No Sepsis New/Unexplained Change in Mental Status No Sepsis Action Taken by Nursing No Action Required 04/16/25 01:35 04/16/25 02:20 04/16/25 03:03 Temperature Temperature Source Pulse Rate Pulse Rate [Apical] 95 H 95 H 93 H Respiratory Rate 21 24 19 Respiratory Effort / Characteristics Non-Labored Spontaneous Respiratory Depth Normal Respiratory Pattern Regular Blood Pressure Blood Pressure [Right Arm] 151/105 H 157/113 H Blood Pressure Mean Blood Pressure Mean [Right Arm] 120 127 Blood Pressure Position [Right Arm] Pulse Oximetry 92 95 95 Oxygen Delivery Method Room Air Room Air Nasal Cannula Oxygen Flow Rate 2 Sepsis Recent Fever Within 48 Hours Sepsis New/Unexplained Change in Mental Status Sepsis Action Taken by Nursing 04/16/25 03:37 Temperature Temperature Source Pulse Rate Pulse Rate [Apical] 92 H Respiratory Rate 22 Respiratory Effort / Characteristics Non-Labored Spontaneous Respiratory Depth Respiratory Pattern Blood Pressure Blood Pressure [Right Arm] 172/104 H Blood Pressure Mean Blood Pressure Mean [Right Arm] 126 Blood Pressure Position [Right Arm] Lying Pulse Oximetry 96 Oxygen Delivery Method Nasal Cannula Oxygen Flow Rate 2 Sepsis Recent Fever Within 48 Hours Sepsis New/Unexplained Change in Mental Status Sepsis Action Taken by Nursing VITALS: Vitals are noted on the nurse's note and reviewed by myself. Vital signs stable. GENERAL: White male moving all extremities quite talkative requesting something to eat and drink, in no acute distress, nondiaphoretic, well-developed well- nourished. SKIN: Capillary reflex less than 2 seconds. HEENT: Normocephalic. PERRLA. EOMI. Nares patent. Mucous membranes moist. Neck is supple without nuchal rigidity. HEART: Regular rate and rhythm LUNGS: Clear to auscultation bilaterally without wheezes, rales or rhonchi. No retractions or accessory muscle use. ABDOMEN: Positive bowel sounds x 4. Normal tympanic percussion. Soft, nontender, without masses or organomegaly. Navarro sign negative. No guarding or rebound tenderness. no CVA tenderness MUSCULOSKELETAL: No gross musculoskeletal defects. NEURO: Patient was alert and oriented to person place and time. No focal neurological deficits. Course Administered Medications Heparin Sodium/Dextrose (Heparin 46492 Unit/500 Ml D5w) 25,000 units in 500 mls @ 25 mls/hr IV .Q20H CHIARA; Protocol Stop: 05/16/25 02:59 Last Admin: 04/16/25 03:33 Dose: 1,250 units/hr, 25 mls/hr Documented By: LUIGI Co-signed By: YANELIS Discontinued Medications Aspirin (Aspirin Chew 324 Mg) 324 mg PO NOW STA Stop: 04/16/25 01:52 Last Admin: 04/16/25 01:56 Dose: 324 mg Documented By: SITA Heparin Sodium (Porcine) (Heparin Sod (Porcine) 1000 Unit/Ml) 1 units IV NOW ONE Stop: 04/16/25 02:55 Last Admin: 04/16/25 03:32 Dose: 6,000 units Documented By: LUIGI Co-signed By: YANELIS Heparin Sodium/Dextrose (Heparin Iv Adult Wt-Based Standard W/ Initial Bolus Protocol) 1 each IV NOW STA; Protocol Stop: 04/16/25 02:40 Last Admin: 04/16/25 03:34 Dose: Not Given Documented By: LUIGI Ioversol (Optiray 320 125ml) 125 ml IV ONCE ONE Stop: 04/16/25 01:25 Last Admin: 04/16/25 01:24 Dose: 118 ml Documented By: EUGENE Critical Care Time Critical Care Time: Yes Total Critical Care Time: 35 I have personally spent 35 minutes of critical care time in the direct management of this patient. This includes bedside care, interpretation of diagnostic studies, and testing, discussion with consultants, patient, and family members, and other required patient management activities. This 35 minutes is in excess of all separately billable procedures. Medical Decision Making Medical Records Attestation: I reviewed the patient's medical records. Home Medications Current Medication List: was personally reviewed by wv Laboratory Data Attestation: I reviewed the patient's lab results. 04/16/25 00:30 04/16/25 00:30 Lab Results 04/16/25 04/16/25 04/16/25 Range/Units 00:30 00:35 02:49 WBC 10.82 H (4.8-10.8) K/ul RBC 4.84 (4.70-6.10) M/uL Hgb 10.4 L (14.0-18.0) g/dl POC Hgb 12.2 L (14.0-18.0) g/dl Hct 35.5 L (42.0-52.0) % POC Hct 36 L (42-52) % MCV 73.3 L (80.0-100.0) fL MCH 21.5 L (25.0-34.0) pg MCHC 29.3 L (32.0-36.0) g/dL RDW Std Deviation 45.5 (36.4-46.3) fL RDW Coeff of Adele 17.5 H (11.5-14.5) % Plt Count 275 (130-400) K/uL MPV 9.4 (9.4-12.4) fL Immature Gran % (Auto) 0.6 % Neut % (Auto) 77.7 % Lymph % (Auto) 10.4 % Cassia % (Auto) 8.9 % Eos % (Auto) 2.0 % Baso % (Auto) 0.4 % Neut # (Auto) 8.42 H (1.40-6.50) K/uL Lymph # (Auto) 1.12 L (1.20-3.40) K/uL Cassia # (Auto) 0.96 H (0.11-0.59) K/uL Eos # (Auto) 0.22 (0.00-0.50) K/uL Baso # (Auto) 0.04 (0.00-0.20) K/uL Immature Gran # (Auto) 0.06 (0.01-0.20) K/uL PT 13.3 H (9.0-12.0) Seconds INR 1.2 H (0.9-1.1) APTT 30 (21-31) Seconds PTT Ratio 1.1 POC Sodium 141 (135-144) mmol/L Sodium 139 (136-145) mmol/L POC Potassium 3.7 (3.3-5.0) mmol/L Potassium 3.7 (3.5-5.1) mmol/L POC Chloride 105 (101-112) mmol/L Chloride 108 H (98-107) mmol/L Carbon Dioxide 27 (21-32) mmol/L POC Total CO2 24 (24-31) mmol/L Anion Gap 4 (3-11) POC Anion Gap 17.0 (16-25) mmol/L POC BUN 19 H (7-18) mg/dl BUN 19 (6-23) mg/dl Creatinine 1.17 (0.6-1.4) mg/dl POC Creatinine 1.3 (0.6-1.3) mg/dl Est Cr Clr Drug Dosing Not Reportable eGFR 68.75 BUN/Creatinine Ratio 16.2 (10-20) Glucose 116 H (70-99(Fasting)) mg/dl POC Glucose (other) 116 H (70-99) mg/dl Calcium 8.2 L (8.6-10.3) mg/dl POC Ioniz Calcium Jeremie 1.19 (1.12-1.32) mmol/l Total Bilirubin 0.7 (0.2-1.0) mg/dl AST 34 (13-39) U/L ALT 23 (7-52) U/L Alkaline Phosphatase 90 (34-104) U/L Troponin I High Sens 85.3 H* 107.2 H* D (0-20) pg/ml Total Protein 6.1 (6.0-8.3) gm/dl Albumin 3.4 (3.4-5.0) gm/dl Globulin 2.7 (2.5-4.0) gm/dl Albumin/Globulin Ratio 1.3 (0.9-2) Lipase 28 (11-82) U/L Ethyl Alcohol mg/dL < 10.0 (<10.0) mg/dl Imaging Data Attestation: I personally reviewed and interpreted this imaging study as follows: Radiologist's Impression: Chest X-Ray 04/16/25 00:31 EXAM: XR chest 1V portable CLINICAL HISTORY: Chest pain, nonspecific TECHNIQUE: Radiograph of chest was acquired. COMPARISON: 22:27:17 DENTAL MECHANIC FINDINGS: Interval increase of left mid and lower zone pleural based lesion with increased soft tissue density in adjacent soft tissues Rest of the lungs are clear and well-expanded with no pulmonary infiltrate or pleural effusion. Interval unchanged cardiomegaly Rest of the cardiomediastinal silhouette is within normal limits. No acute osseous abnormality. IMPRESSION: Interval suspicious enlargement of left mid and lower zone pleural based lesion with increased soft tissue density in adjacent region Interval unchanged cardiomegaly Suggest CT for further evaluation Electronically signed by Alfredito Calderon 04-16-2025 01:43 AM Chest CTA 04/16/25 00:32 EXAM: CT angio chest PE protocol CLINICAL HISTORY: Chest Pain, eval for PE TECHNIQUE: Contiguous axial images were obtained from the neck base through the upper abdomen following intravenous administration of iodinated contrast material. Angiographic images were processed, 3D MIP images were acquired for interpretation. If IV contrast material had not been administered, the likelihood of detecting abnormalities relevant to the patient's condition would have been substantially decreased. Coronal and sagittal 3-D MIPs were likewise performed and indicated to increase the sensitivity of detectin diffuse clinically relevant pathology. CT scan was performed according to ALARA (as low as reasonable achievable). COMPARISON: jul 28 12:15:12 DENTAL MECHANIC. FINDINGS: Rolling hiatus hernia noted. Evidence of poor contrast opacification is noted involving distal posterior segmental branches of bilateral lower lobes. Mild reflux of contrast seen in inferior vena cava from right atrium. The central airways are patent. Multiple atelectatic bands are noted involving bilateral lower lobes Mild diffuse interlobular septal thickening are noted involving subpleural region of both upper lobes. No pleural effusion. The heart, aorta, and pulmonary arteries are of normal size and configuration. There are no appreciable coronary artery and aortic atherosclerotic calcifications. No pericardial effusion is identified. The thyroid is unremarkable. No mediastinal, hilar, or axillary lymphadenopathy is noted. No suspicious lytic or sclerotic osseous lesions are identified. Old fracture with callus formation and bony remodeling is noted involving left 6-10 ribs. Left side fat containing lateral upper abdominal hernia. IMPRESSION: 1. Evidence of poor contrast opacification is noted involving distal posterior segmental branches of bilateral lower lobes- possibility of segmental pulmonary thromboembolism. ( motion artifacts seen in prior study).- clinical correlation is suggested 2. Rest of pulmonary artery appears patent. 3. Multiple atelectatic bands are noted involving bilateral lower lobes 4. Mild diffuse interlobular septal thickening are noted involving subpleural region of both upper lobes. 5. Old fracture with callus formation and bony remodeling is noted involving left 6-10 ribs. Electronically signed by Alfredito Calderon 04-16-2025 02:13 AM MDM Narrative Prior records/ancillary studies reviewed. Triage Nursing notes reviewed. Additional history obtained from EMS. The patient's history was concerning for chest pain. Differential diagnosis: Etiologies such as cardiac ischemia, aortic dissection, pulmonary embolism, pneumonia, pneumothorax, musculoskeletal, infections, pericarditis, myocarditis, esophageal rupture, gastrointestinal, as well as others were entertained. Physical examination: As above. ER treatment provided: An order was placed for continuous cardiac monitoring. The monitor shows a rate of 60-100 with a sinus rhythm per my interpretation. Aspirin Heparin with bolus was ordered for possible PE and this was discussed with the hospitalist On reassessment the patient felt better. Diagnostic interpretation by me: #1 the electrocardiogram was ordered for chest pain EKG: Normal sinus, right bundle, left anterior fascicular block, poor baseline, rate of 98. Impression normal sinus rhythm right bundle left anterior fascicular block unchanged from prior independently interpreted by myself #2 EKG ordered for positive troponin EKG: Normal sinus, right bundle, left anterior fascicular block, rate of 96. Impression normal sinus rhythm with a right bundle branch block and a left anterior fascicular block similar to prior per my independent interpretation The labs Independently Interpreted by myself revealed elevated troponin and repeat was ordered which was higher. Patient was already given heparin for possible PE. Stable anemia per chart review Imaging studies: Imaging was reviewed and read by radiology HEART SCORE: Hx: high/mod/low suspicion: 0 ECG: ST depression/nonspecific changes/normal: 0 Age: Greater than 65/45-64/less than 45: 2 Risk factors: (Hypertension, hyperlipidemia, diabetes, coronary disease, tobacco use, cocaine use): 2 Troponin: Greater than 2 times normal limits/1-2 times normal limits/normal: 0 Total: 4 Consultation: A consultation was placed with the hospitalist. The case was discussed and diagnostics were reviewed. The patient was evaluated in the ER for further treatment. She recommends heparin and bolus for possible PE. Exam and history seem consistent with chest pain with concerns for possible PE on imaging. Hypercoagulable workup was ordered. Patient was given heparin with bolus and this was discussed with the admitting team. Minimally elevated troponin. Repeat EKG was unchanged. Medicine was consulted and case was discussed. He will be evaluated for admission. By the evaluation outlined above emergent etiologies such as aortic dissection, pneumonia, pneumothorax, infections, pericarditis, myocarditis, gastrointestinal, as well as others were deemed relatively unlikely. The pt informed about the findings as listed above. All questions were answered and pleased with the treatment. The chart was completed utilizing DST[employer] voice recognition software. Grammatical errors, random word insertions, pronoun errors, and incomplete sentences are an occassional consequence of this system due to software limitations, ambient noise, and hardware issues. Any formal questions or concerns about the content, text, or information contained within the body of this dictation should be directly addressed to the physician resident care assistant for clarification. Impression & Plan Chest pain, Anemia, Homeless, Elevated troponin Discharge Plan Visit Data Chief Complaint: Shortness of Breath/Dyspnea Stated Complaint: SOB, Chest Tightness ED Provider: Mikala Brown ED Midlevel Provider: Lolis Issa Discharge Problem: Chest pain, Anemia, Homeless, Elevated troponin Patient Disposition: Admitted As Inpatient Condition: Good Forms Stand Alone Forms: Important Visit Information Prescriptions Prescriptions: No Action tramadol 50 mg tablet 50 mg PO TID PRN (Reason: Pain) Qty: 100 0RF cyclobenzaprine 10 mg tablet 10 mg PO TID PRN (Reason: muscle spasms) Qty: 90 0RF metoprolol succinate 25 mg tablet extended release 24 hr 25 mg PO HS Qty: 90 1RF rosuvastatin [Crestor] 5 mg tablet 5 mg PO DAILY Qty: 90 3RF Referrals Referrals: Uli Palencia III, CRNP [Primary Care Provider] - Discharge Problem: Chest pain Qualifiers: Chest pain type: unspecified Qualified Code(s): R07.9 - Chest pain, unspecified
[2025-04-16 00:44] LABS: Hematocrit (blood only) 35.5 % (42.0-52.0); Hemoglobin 10.4 g/dl (14.0-18.0); Immature Granulocytes # (auto) 0.06 K/uL (0.01-0.20); Immature Granulocytes % (auto) 0.6 %; Mean Corpuscular Hemoglobin 21.5 pg (25.0-34.0); Mean Corpuscular Volume 73.3 fL (80.0-100.0); Platelet Count 275 K/uL (130-400); RDW Standard Deviation 45.5 fL (36.4-46.3); Red Blood Count 4.84 M/uL (4.70-6.10); White Blood Count 10.82 K/ul (4.8-10.8)
[2025-04-16 01:02] LABS: Alanine Aminotransferase 23 U/L (7-52); Albumin Globulin Ratio 1.3 (0.9-2); Alkaline Phosphatase 90 U/L (34-104); Anion Gap 4 (3-11); Bilirubin,Total 0.7 mg/dl (0.2-1.0); Blood Urea Nitrogen 19 mg/dl (6-23); Calcium 8.2 mg/dl (8.6-10.3); Carbon Dioxide 27 mmol/L (21-32); Chloride 108 mmol/L (98-107); Globulin 2.7 gm/dl (2.5-4.0); Glucose 116 mg/dl (70-99(Fasting)); Lipase 28 U/L (11-82); Potassium 3.7 mmol/L (3.5-5.1); Sodium 139 mmol/L (136-145); Total Protein 6.1 gm/dl (6.0-8.3)
[2025-04-16] MEDS: OPTIRAY 320 125ml IV ONE (01:24)
--- NOTE | 2025-04-16 01:44 | XRay Report ---
EXAM: XR chest 1V portable CLINICAL HISTORY: Chest pain, nonspecific TECHNIQUE: Radiograph of chest was acquired. COMPARISON: 22:27:17 COMMERCIAL LENDING RELATIONSHIP MANAGER FINDINGS: Interval increase of left mid and lower zone pleural based lesion with increased soft tissue density in adjacent soft tissues Rest of the lungs are clear and well-expanded with no pulmonary infiltrate or pleural effusion. Interval unchanged cardiomegaly Rest of the cardiomediastinal silhouette is within normal limits. No acute osseous abnormality. IMPRESSION: Interval suspicious enlargement of left mid and lower zone pleural based lesion with increased soft tissue density in adjacent region Interval unchanged cardiomegaly Suggest CT for further evaluation Electronically signed by Alfredito Calderon 04-16-2025 01:43 AM
[2025-04-16] MEDS: ASPIRIN CHEW 324 MG PO STA (01:56)
--- NOTE | 2025-04-16 02:14 | CT Scan Report ---
EXAM: CT angio chest PE protocol CLINICAL HISTORY: Chest Pain, eval for PE TECHNIQUE: Contiguous axial images were obtained from the neck base through the upper abdomen following intravenous administration of iodinated contrast material. Angiographic images were processed, 3D MIP images were acquired for interpretation. If IV contrast material had not been administered, the likelihood of detecting abnormalities relevant to the patient's condition would have been substantially decreased. Coronal and sagittal 3-D MIPs were likewise performed and indicated to increase the sensitivity of detectin diffuse clinically relevant pathology. CT scan was performed according to ALARA (as low as reasonable achievable). COMPARISON: jul 28 12:15:12 SUPERVISOR ROVING. FINDINGS: Rolling hiatus hernia noted. Evidence of poor contrast opacification is noted involving distal posterior segmental branches of bilateral lower lobes. Mild reflux of contrast seen in inferior vena cava from right atrium. The central airways are patent. Multiple atelectatic bands are noted involving bilateral lower lobes Mild diffuse interlobular septal thickening are noted involving subpleural region of both upper lobes. No pleural effusion. The heart, aorta, and pulmonary arteries are of normal size and configuration. There are no appreciable coronary artery and aortic atherosclerotic calcifications. No pericardial effusion is identified. The thyroid is unremarkable. No mediastinal, hilar, or axillary lymphadenopathy is noted. No suspicious lytic or sclerotic osseous lesions are identified. Old fracture with callus formation and bony remodeling is noted involving left 6-10 ribs. Left side fat containing lateral upper abdominal hernia. IMPRESSION: 1. Evidence of poor contrast opacification is noted involving distal posterior segmental branches of bilateral lower lobes- possibility of segmental pulmonary thromboembolism. ( motion artifacts seen in prior study).- clinical correlation is suggested 2. Rest of pulmonary artery appears patent. 3. Multiple atelectatic bands are noted involving bilateral lower lobes 4. Mild diffuse interlobular septal thickening are noted involving subpleural region of both upper lobes. 5. Old fracture with callus formation and bony remodeling is noted involving left 6-10 ribs. Electronically signed by Alfredito Calderon 04-16-2025 02:13 AM
--- NOTE | 2025-04-16 02:49 | History & Physical Report ---
Date of Service April 16, 2025 Assessment & Plan (1) Chest pain: Plan 65-year-old male PMHx chronic OM and previously on chronic antibiotics, HTN, SARITA, polysubstance use disorder, HTN, tobacco dependence, antisocial personality disorder, and depression presenting for onset of shortness of breath and chest pain starting at 2100 the day of arrival. ED evaluation reveals CBC with leukocytosis 10.82, H&H 10.4/35.5; CMP chloride 108, glucose 116, calcium 8.2; troponin 85.3, pending repeat; alcohol <10; CXR interval suspicious enlargement of L mid and lower zone pleural-based lesion with increase of tissue density and adjacent region, interval unchanged cardiomegaly, suggest CT; chest CT evidence of poor contrast opacification noted distal portion segmental branches of bilateral lower lobes there is a possibility of segmental pulmonary thromboembolism, multiple atelectatic bands in bilateral lower lobes, mild diffuse intralobular septal thickening noted of both upper lobes, old fracture with calculus formation of left 6-10 ribs; EKG NSR, RBBB, LAFB, bifascicular block at 98 bpm.; Provided with aspirin 324 mg p.o., and started on heparin in ED. #Chest pain/? 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 Appears to be unprovoked PE. Patient remains tachycardic in the 90s, and hypertensive in ED. CTA is not the most clear, however given clinical picture, vitals, and the findings that could suggest a PE, will treat as such. - CBC mild leukocytosis 10.82, H&H 10.4/35.5; PT/NR pending - CBC am - Troponin 85.3, pending repeat - Protein C, S, Antithrombin 3, and factor V Leiden pending - EKG NSR with RBBB and LAFB/bifascicular block 98 bpm - Chest CTA with distal portion segmental branches of bilateral lower lobes revealing possibility of a segmental pulmonary TE - O2 prn - none at baseline - adjust as patient tolerates - Echo pending - Heparin started - continue #HLD- Rosuvastatin - continue #HTN- Metoprolol - continue #Pain/muscle spasm- Cyclobenzaprine, tramadol - continue Patient is homeless. Case management was consulted. He does express significant frustration regarding his living situation. No SI/HI at time of admission. Pt does not have family or a support system. I do believe patient would benefit from having some sort of foundation in his life- should highly consider consulting hoop expander or further discussing the topic of kayleigh with the patient, as appropriate. Dispo: Admit, PCU VTE Prophylaxis: Heparin for treatment of PE This document was dictated utilizing [employer]. Please excuse any grammatical errors that may be secondary to use of this software. Admission and Anticipated Discharge Date Admission Date: 04/16/2025 History of Present Illness Chief Complaint: SOB, CP Primary Care Provider: lUi Palencia III, AUGUSTUS 65-year-old male PMHx chronic OM and previously on chronic antibiotics, HTN, SARITA, polysubstance use disorder, HTN, tobacco dependence, antisocial personality disorder, and depression presenting for onset of shortness of breath and chest pain starting at 2100 the day of arrival. States that he is homeless, and he was outside by himself when he had a sudden onset of chest pain and SOB. He felt like he could not catch his breath and was gasping for air. States that it took awhile for help to get to him, so he became scared. Pt states that his pain is currently around a 6-7/10 on the pain scale but the pain comes and goes. He does not have any calf tenderness or size discrepancies. He does have some swelling in his bilateral ankles at times. 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 Pt expresses significant frustration regarding his living situation. 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 He does not wish to be resuscitated in the event of an emergency. He denies SI/HI at time of admission. Overall, the patient is without additional complaints. He has never had this happen before. ED evaluation reveals CBC with leukocytosis 10.82, H&H 10.4/35.5; CMP chloride 108, glucose 116, calcium 8.2; troponin 85.3, pending repeat; alcohol <10; CXR interval suspicious enlargement of L mid and lower zone pleural-based lesion with increase of tissue density and adjacent region, interval unchanged cardiomegaly, suggest CT; chest CT evidence of poor contrast opacification noted distal portion segmental branches of bilateral lower lobes there is a possibility of segmental pulmonary thromboembolism, multiple atelectatic bands in bilateral lower lobes, mild diffuse intralobular septal thickening noted of both upper lobes, old fracture with calculus formation of left 6-10 ribs; EKG NSR, RBBB, LAFB, bifascicular block at 98 bpm.; Provided with aspirin 324 mg p.o., and started on heparin in ED. Please see Dr. Anne's attestation for adjustments/additions to treatment plan. Allergies Allergy/AdvReac Type Severity Reaction Status Date / Time gabapentin Allergy Severe SHORT OF Verified 11/04/24 12:54 BREATH cat dander Allergy Intermediate itchy Verified 11/04/24 12:54 eyes, sneezing codeine AdvReac Intermediate GI upset Verified 11/04/24 12:54 Home Medications Medication Instructions Recorded Confirmed Type metoprolol succinate 25 mg 25 mg PO HS #90 tabs 11/04/24 04/16/25 Rx tablet,extended release 24 hr rosuvastatin 5 mg tablet (Crestor) 5 mg PO DAILY #90 tabs 11/04/24 04/16/25 Rx cyclobenzaprine 10 mg tablet 10 mg PO TID PRN muscle spasms #90 01/07/25 04/16/25 Rx tabs tramadol 50 mg tablet 50 mg PO TID PRN Pain #100 tabs 01/07/25 04/16/25 Rx Past Med/Surg History Problem List Chest pain (Acute) Cardiovascular disease (Chronic) Diabetes mellitus (Chronic) HTN (hypertension) (Chronic) Iron deficiency anemia Homeless (Chronic) Anemia (Acute) Hyperglycemia Insomnia Chronic low back pain (Chronic) LVH (left ventricular hypertrophy) (Chronic) severe 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) Lumbar spinal stenosis (Chronic 04/19/14) Medical History Contact with metalworking machinery as cause of accidental injury Wernicke encephalopathy Closed T3 fracture Screening for osteoporosis Hardware failure Diastolic dysfunction Closed fracture of left zygomatic arch Depression Antisocial personality disorder Unspecified mood [affective] disorder Constipation Polysubstance abuse Degenerative lumbar spinal stenosis Osteomyelitis of vertebra Homelessness Polysubstance use disorder Neurogenic claudication due to lumbar spinal stenosis Hypokalemia Elevated CPK Lumbar spinal stenosis Medical non-compliance Psoas abscess Lower back pain Discitis Encephalopathy Rib pain on left side Hyperglycemia Blood loss anemia LVH (left ventricular hypertrophy) Rib fracture left sided, remotely, healed without intervention- does have residual pain over area Obesity Osteoarthritis Hypertension Surgical History History of arthroscopy of shoulder left History of knee replacement right History of back surgery x5 total S/P TKR (total knee replacement) Family History Denies family history of Ovarian cancer Prostate cancer Myocardial infarction Breast cancer Colorectal cancer Social History Smoking Status: Current every day smoker Tobacco Type: Cigarettes Age Started Using Tobacco: 34; packs per day: 0.25; Second Hand Exposure: Yes; Do You Dip or Chew Tobacco: No; Hx Alcohol Use: Yes Alcohol type: beer Hx Substance Use: Yes Prescribed Medications: Marijuana Last Used Substance: Days (ago) Last Used Substance Other:: UDS + cocaine Preferred Language: Wolof Communication Ability: Effective Marketing Trainee Required: No Beliefs That Will Affect Care: None marital status: Single Current Living Situation: Alone Current Living Situation Comment: Patient lives alone in an apartment. Expressed that his housing is unsafe current occupational status: unemployed Feels Safe at Home: No Is there a partner from a previous relationship who is making you feel unsafe now?: No Dental Care, Regularly: No Physical Activity Frequency: Does not Exercise Seatbelt Use: always Assistive Devices: Cane Review of Systems Review of Systems: All systems reviewed & are unremarkable except as noted in Subjective Physical Exam Physical Exam: General: No acute distress, all of his belongings are with him in garbage bags and a cart. Skin: Warm and dry Head: Normocephalic, atraumatic Eyes: PERRL, conjunctivae clear, sclera non-icteric ENT: External ear and ear canal without swelling; nose atraumatic; poor dentiti on, tongue normal appearance, pharynx normal Neck: Supple, no LAD Cardio: RRR, no M/G/R, S1 and S2 normal Resp: No respiratory distress, Lungs CTA in all lobes bilaterally, no wheezes, rales, or rhonchi Abdomen: Soft, symmetric, nontender; No masses or hepatosplenomegaly; Bowel sounds normoactive MSK: No deformities; pulses palpable and equal; no edema; no calf tenderness, no size discrepancies Neuro: Awake, alert; Sensation intact bilaterally; CN grossly intact Psych: Appropriate mood and affect; good judgement and insight. Results & Data Results & Data Vital Signs (Past 12 Hours) Vital Signs Temp Pulse Pulse Resp BP BP Pulse Ox 04/16/25 02:20 95 H 24 95 04/16/25 01:35 95 H 21 151/105 H 92 04/16/25 00:37 95 04/16/25 00:33 97 H 04/16/25 00:30 36.5 C 97 H 14 166/108 H 95 O2 Del Method 04/16/25 02:20 Room Air 04/16/25 01:35 Room Air 04/16/25 00:37 Room Air 04/16/25 00:33 04/16/25 00:30 Room Air Laboratory Results 04/16/25 00:30 WBC 10.82 H RBC 4.84 Hgb 10.4 L Hct 35.5 L MCV 73.3 L MCH 21.5 L MCHC 29.3 L RDW Std Deviation 45.5 RDW Coeff of Adele 17.5 H Plt Count 275 MPV 9.4 Immature Gran % (Auto) 0.6 Neut % (Auto) 77.7 Lymph % (Auto) 10.4 [place] % (Auto) 8.9 Eos % (Auto) 2.0 Baso % (Auto) 0.4 Neut # (Auto) 8.42 H Lymph # (Auto) 1.12 L [place] # (Auto) 0.96 H Eos # (Auto) 0.22 Baso # (Auto) 0.04 Immature Gran # (Auto) 0.06 Sodium 139 Potassium 3.7 Chloride 108 H Carbon Dioxide 27 Anion Gap 4 BUN 19 Creatinine 1.17 Est Cr Clr Drug Dosing Not Reportable eGFR 68.75 BUN/Creatinine Ratio 16.2 Glucose 116 H Calcium 8.2 L Total Bilirubin 0.7 AST 34 ALT 23 Alkaline Phosphatase 90 Troponin I High Sens 85.3 H* Total Protein 6.1 Albumin 3.4 Globulin 2.7 Albumin/Globulin Ratio 1.3 Lipase 28 Ethyl Alcohol mg/dL < 10.0 Diagnostic Findings Chest X-Ray 04/16/25 00:31 EXAM: XR chest 1V portable CLINICAL HISTORY: Chest pain, nonspecific TECHNIQUE: Radiograph of chest was acquired. 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 Interval unchanged cardiomegaly Rest of the cardiomediastinal silhouette is within normal limits. No acute osseous abnormality. IMPRESSION: Interval suspicious enlargement of left mid and lower zone pleural based lesion with increased soft tissue density in adjacent region Interval unchanged cardiomegaly Suggest CT for further evaluation Electronically signed by Alfredito Calderon 04-16-2025 01:43 AM Chest CTA 04/16/25 00:32 EXAM: CT angio chest PE protocol CLINICAL HISTORY: Chest Pain, eval for PE TECHNIQUE: Contiguous axial images were obtained from the neck base through the upper abdomen following intravenous administration of iodinated contrast material. Angiographic images were processed, 3D MIP images were acquired for interpretation. If IV contrast material had not been administered, the likelihood of detecting abnormalities relevant to the patient's condition would have been substantially decreased. Coronal and sagittal 3-D MIPs were likewise performed and indicated to increase the sensitivity of detectin diffuse clinically relevant pathology. CT scan was performed according to ALARA (as low as reasonable achievable). COMPARISON: jul 28 12:15:12 DISTRIBUTION DRIVER. FINDINGS: Rolling hiatus hernia noted. Evidence of poor contrast opacification is noted involving distal posterior segmental branches of bilateral lower lobes. Mild reflux of contrast seen in inferior vena cava from right atrium. The central airways are patent. Multiple atelectatic bands are noted involving bilateral lower lobes Mild diffuse interlobular septal thickening are noted involving subpleural region of both upper lobes. No pleural effusion. The heart, aorta, and pulmonary arteries are of normal size and configuration. There are no appreciable coronary artery and aortic atherosclerotic calcifications. No pericardial effusion is identified. The thyroid is unremarkable. No mediastinal, hilar, or axillary lymphadenopathy is noted. No suspicious lytic or sclerotic osseous lesions are identified. Old fracture with callus formation and bony remodeling is noted involving left 6-10 ribs. Left side fat containing lateral upper abdominal hernia. IMPRESSION: 1. Evidence of poor contrast opacification is noted involving distal posterior segmental branches of bilateral lower lobes- possibility of segmental pulmonary thromboembolism. ( motion artifacts seen in prior study).- clinical correlation is suggested 2. Rest of pulmonary artery appears patent. 3. Multiple atelectatic bands are noted involving bilateral lower lobes 4. Mild diffuse interlobular septal thickening are noted involving subpleural region of both upper lobes. 5. Old fracture with callus formation and bony remodeling is noted involving left 6-10 ribs. Electronically signed by Alfredito Calderon 04-16-2025 02:13 AM Medications Administered Aspirin 324 mg p.o. Heparin ECG Additional Comments: NSR, RBBB, LAFB, bifascicular block 98 bpm, SC 152, QRS 146, QT/QTc 398/508, PRT*/-80/64 Code Status & VTE Plan Code Status DNR/DNI Discussed in detail what "DNR/DNI" entails; patient understood fully. All questions asked and answered. Patient desires to proceed as DNR/DNI status. PG Care Time/CCT Total # of Minutes Spent Total Time Spent with Patient: Total time spent is greater than 50% in coordination of care (as documented) at patient's floor/unit and/or counseling patient: Coding Level of Care Code 45557 INT INP/OBS CARE 3/75MIN Diagnoses Chest pain R07.9
[2025-04-16 02:58] LABS: INR 1.2 (0.9-1.1); Partial Thromboplastin Time 30 Seconds (21-31); Prothrombin Time 13.3 Seconds (9.0-12.0)
[2025-04-16] MEDS: HEPARIN SOD (PORCINE) 1000 UNIT/ML IV ONE (03:32)
[2025-04-16] MEDS: HEPARIN 25000 UNIT/500 ML D5W 25,000 UNITS/500 ML BAG IV SCH (03:33)
[2025-04-16] MEDS: Heparin IV Adult Wt-Based Standard w/ INITIAL Bolus Protocol IV STA (03:34)
[2025-04-16] MEDS ORDERED: POLYETHYLENE (MIRALAX) 17 GM PACK PO PRN (07:10)
[2025-04-16] MEDS ORDERED: MELATONIN 3 MG TAB PO PRN (07:10)
[2025-04-16] MEDS ORDERED: CYCLOBENZAPRINE HCL 10 MG TAB PO PRN (07:10)
[2025-04-16] MEDS ORDERED: ONDANSETRON INJ 2 MG/ML 2 ML VIAL IV PRN (07:10)
[2025-04-16] MEDS: ROSUVASTATIN CALCIUM 5 MG TAB PO SCH (08:46)
--- NOTE | 2025-04-16 08:46 | Electrocardiogram Report ---
Test Reason : Blood Pressure : */* mmHG Vent. Rate : 98 BPM Atrial Rate : 98 BPM P-R Int : 152 ms QRS Dur : 146 ms QT Int : 398 ms P-R-T Axes : * -80 64 degrees QTcB Int : 508 ms Normal sinus rhythm Right bundle branch block Left anterior fascicular block Bifascicular block Abnormal ECG Confirmed by Brian Mahoney ([id number]) on 04/16/2025 8:45:48 AM Referred By: REFERRED SELF Confirmed By: Brian Mahoney
--- NOTE | 2025-04-16 08:47 | Electrocardiogram Report ---
Test Reason : Blood Pressure : */* mmHG Vent. Rate : 96 BPM Atrial Rate : 96 BPM P-R Int : 154 ms QRS Dur : 140 ms QT Int : 394 ms P-R-T Axes : * -84 64 degrees QTcB Int : 497 ms Normal sinus rhythm Right bundle branch block Left anterior fascicular block Bifascicular block Abnormal ECG When compared with ECG of 16-Apr-2025 00:27, (unconfirmed) No significant change was found Confirmed by Brian Mahoney ([id number]) on 04/16/2025 8:47:08 AM Referred By: REFERRED SELF Confirmed By: Brian Mahoney
[2025-04-16] MEDS: NICOTINE 14 MG/24 HR PATCH TD SCH (10:12)
[2025-04-16] MEDS: APIXABAN 5 MG TABLET PO SCH (11:02)
--- NOTE | 2025-04-16 11:04 | XCELERA ---
[id number]
--- NOTE | 2025-04-16 12:11 | Hospitalist Progress Note ---
Date of Service April 16, 2025 Assessment & Plan (1) Chest pain: Plan 65-year-old male PMHx chronic OM and previously on chronic antibiotics, HTN, SARITA, polysubstance use disorder, HTN, tobacco dependence, antisocial personality disorder, and depression presenting for onset of shortness of breath and chest pain starting at 2100 the day of arrival. ED evaluation reveals CBC with leukocytosis 10.82, H&H 10.4/35.5; CMP chloride 108, glucose 116, calcium 8.2; troponin 85.3, pending repeat; alcohol <10; CXR interval suspicious enlargement of L mid and lower zone pleural-based lesion with increase of tissue density and adjacent region, interval unchanged cardiomegaly Provided with aspirin 324 mg p.o., and started on heparin in ED. Patient later today was currently stable. He is still saying he is a bit short of breath. Patient denies chest pain and N/V/D. He also is a current smoker, 10 cigarettes a day, and requested a nicotine patch. Patient stated in the afternoon that he was having cataract eye surgery in the future and that he was having an infection in his eyes. He said there was drainage coming out of his eyes, but upon inspection did not see any drainage. The nurse was also consulted and she did not see the pus drainage either. #Chest pain/? 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 Appears to be unprovoked PE. Patient remains tachycardic in the 90s, and hypertensive in ED. CTA is not the most clear, however given clinical picture, vitals, and the findings that could suggest a PE, will treat as such. - CBC mild leukocytosis 10.82, H&H 10.4/35.5; PT/NR pending - CBC am - Troponin 85.3, Troponin on repeat is 107.2, will repeat troponin - Protein C, S, Antithrombin 3, and factor V Leiden pending - EKG NSR with RBBB and LAFB/bifascicular block 98 bpm - Chest CTA * with distal portion segmental branches of bilateral lower lobes revealing possibility of a segmental pulmonary PE * poor contrast opacification noted distal portion segmental branches of bilateral lower lobes there is a possibility of segmental pulmonary thromboembolism * multiple atelectatic bands in bilateral lower lobes, * mild diffuse intralobular septal thickening noted of both upper lobes, * old fracture with calculus formation of left 6-10 ribs -CXR: * Interval suspicious enlargement of left mid and lower zone pleural based lesion with increased soft tissue density in adjacent region (from chest CT is most likely the old fracture on ribs 6-10) * Interval unchanged cardiomegaly - O2 prn - none at baseline - adjust as patient tolerates - Echo showed: * left ventricular systolic function is moderate to severely reduced * diastolic dysfunction, Grad II (pseudonormalization pattern) * the right atrium is moderately dilated * moderate annular calcification * mild mitral regurg * Right ventricular systolic pressure is elevated at >60mmHg * Inferior vena cava is mildly dilated * Right ventricular systolic function is mildly reduced - Discontinued heparin due to patient request. Replaced heparin with Eliquis 10mg BID. #COPD - Wheezing was heard throughout exam and patient was still a bit short of breath. - Ordered duoneb treatment #HLD- Rosuvastatin - continue #HTN- Metoprolol - continue #Pain/muscle spasm- Cyclobenzaprine, tramadol - continue #Nicotine Dependence - Patient currently smoking 10 cigarretes a day - Ordered nicotine patches 14mg Patient is homeless. Case management was consulted. He does express significant frustration regarding his living situation. No SI/HI at time of admission. Pt does not have family or a support system. I do believe patient would benefit from having some sort of foundation in his life- should highly consider consulting chocolate maker or further discussing the topic of kayleigh with the patient, as appropriate. Dispo: Admit, PCU VTE Prophylaxis: Eliquis for treatment of PE Admission and Anticipated Discharge Date Admission Date: April 16, 2025 Supervising Physician Co-Signing Physician Notes ATTESTATION I also saw the patient and confirmed berry portions of the history and exam. I agree with the impression and plan in the resident documentation, and as summarized below. Homeless gentleman who notes that he had increased anxiety related to [place]. On top of the anxiety, he tells me that he had a rather sudden increase in dyspnea which prompted his presentation. He feels mildly improved this morning. He is frustrated with the repeat blood draws for the heparin gtt. EXAM VS as noted Alert and Oriented. Pleasant and cooperative for my visit. CV regular, slightly tachycardic Lungs with exp wheezing in all alas DATA Labs WBC 10.8 Sodium 141, potassium 3.7 BUN 19, Cr 1.17 IMPRESSION & PLAN PE Given is frustration with repeated blood draws - and no concern for bleeding or upcoming procedure, will transition to apixaban now Given tobacco history and exam, suspect COPD; will add albuterol. He would likely benefit from inhaler regimen although compliance will be tough Elevated troponin Question history CAD Likely related to PE; history of "heart attack" not quite clear since he left AMA prior to completion of work up back in July Check echo Trend troponin Homelessness Case management aware Additional per resident documentation Subjective Patient is a 65 year old male who presented into the ED because of shortness of breath and chest pain. Patient is currently homeless [place]. He said that with the [employer] festival was there he couldnt live where he currently resides and it was giving him anxiety. Patient stated he was having symptoms yesterday but no one helped until later in the evening when police officers helped him. Patient noted that he has a history of COPD and anxiety. He also stated that he had a heart attack last September and the chest pain yesterday felt like his heart attack in September. Patient denied having any history of clots. Today he is eating and drinking well. He also said that he is still a little short of breath. During physical exam, patient was starting to get anxious and was getting short of breath. Stayed at the patient bedside until his breathing slowed and his anxiety lessened. Patient denies N/V/D, and chest pain. Upon reassessing in the afternoon, patient was discussing that he had an infection in his eyes. He stated he was having pus coming out of his eyes. Patient denied itching or eye pain. He did state his eyes were blurry, but he also discussed he was having cataract eye surgery in the future. Review of Systems Review of Systems: per subjective HPI Physical Exam Constitutional: WD/WN, vitals as above Eyes: Did not see any pus drainage coming out of eyes. Respiratory: Auscultation: + wheezes (throughout) was tachypneic during exam. Cardiovascular: RRR, no murmur, no edema Psychiatric: Apperance: + disheveled Speech: normal rate/rhythm/volume of speech Results & Data Results & Data Vital Signs (Past 12 Hours) Vital Signs Temp Pulse Pulse Resp BP BP Pulse Ox 04/16/25 11:16 36.5 C 92 H 20 158/98 H 92 04/16/25 08:57 94 H 04/16/25 08:57 04/16/25 08:00 04/16/25 07:25 36.5 C 98 H 16 152/97 H 93 04/16/25 05:52 92 H 22 04/16/25 04:53 95 H 22 92 04/16/25 04:33 95 H 04/16/25 03:37 92 H 22 172/104 H 96 04/16/25 03:03 93 H 19 157/113 H 95 04/16/25 02:20 95 H 24 95 04/16/25 01:35 95 H 21 151/105 H 92 04/16/25 00:37 95 04/16/25 00:33 97 H 04/16/25 00:30 36.5 C 97 H 14 166/108 H 95 O2 Del Method O2 Flow Rate 04/16/25 11:16 Room Air 04/16/25 08:57 04/16/25 08:57 Room Air 04/16/25 08:00 Room Air 04/16/25 07:25 Room Air 04/16/25 05:52 Room Air 04/16/25 04:53 Room Air 04/16/25 04:33 04/16/25 03:37 Nasal Cannula 2 04/16/25 03:03 Nasal Cannula 2 04/16/25 02:20 Room Air 04/16/25 01:35 Room Air 04/16/25 00:37 Room Air 04/16/25 00:33 04/16/25 00:30 Room Air (1) Chest pain Chest pain type: unspecified Qualified Code(s): R07.9 - Chest pain, unspecified
[2025-04-16] MEDS: ALBUT/IPRATROP 3MG/0.5MG NEB 3 ML VIAL NEB STA ×2 (14:41→14:57)
[2025-04-16] MEDS: ALBUT/IPRATROP 3MG/0.5MG NEB 3 ML VIAL NEB SCH (19:33)
[2025-04-16] MEDS: METOPROLOL SUCC 25MG EXT REL TAB PO SCH (20:42)
[2025-04-17 06:42] LABS: Hematocrit (blood only) 36.8 % (42.0-52.0); Hemoglobin 10.7 g/dl (14.0-18.0); Immature Granulocytes # (auto) 0.03 K/uL (0.01-0.20); Immature Granulocytes % (auto) 0.3 %; Mean Corpuscular Hemoglobin 21.5 pg (25.0-34.0); Mean Corpuscular Volume 74.0 fL (80.0-100.0); Platelet Count 257 K/uL (130-400); RDW Standard Deviation 46.7 fL (36.4-46.3); Red Blood Count 4.97 M/uL (4.70-6.10); White Blood Count 10.84 K/ul (4.8-10.8)
[2025-04-17 07:04] LABS: Alanine Aminotransferase 20.0 U/L (7-52); Albumin Globulin Ratio 1.3 (0.9-2); Alkaline Phosphatase 90.0 U/L (34-104); Anion Gap 3.0 (3-11); Bilirubin,Total 0.5 mg/dl (0.2-1.0); Blood Urea Nitrogen 19.0 mg/dl (6-23); Calcium 8.5 mg/dl (8.6-10.3); Carbon Dioxide 30.0 mmol/L (21-32); Chloride 105.0 mmol/L (98-107); Creatinine Clr Calc Pharmacy 66.0 ml/min; Globulin 2.7 gm/dl (2.5-4.0); Glucose 108.0 mg/dl (70-99(Fasting)); Potassium 4.3 mmol/L (3.5-5.1); Sodium 138.0 mmol/L (136-145); Total Protein 6.2 gm/dl (6.0-8.3)
[2025-04-17] MEDS: REMOVE NICODERM PATCH SCH (08:46)
--- NOTE | 2025-04-17 10:00 | Hospitalist Progress Note ---
Date of Service April 17, 2025 Assessment & Plan (1) Chest pain: Plan (Day of Admit) 65-year-old male PMHx chronic OM and previously on chronic antibiotics, HTN, SARITA, polysubstance use disorder, HTN, tobacco dependence, antisocial personality disorder, and depression presenting for onset of shortness of breath and chest pain starting at 2100 the day of arrival. ED evaluation reveals CBC with leukocytosis 10.82, H&H 10.4/35.5; CMP chloride 108, glucose 116, calcium 8.2; troponin 85.3, pending repeat; alcohol <10; CXR interval suspicious enlargement of L mid and lower zone pleural-based lesion with increase of tissue density and adjacent region, interval unchanged cardiomegaly Provided with aspirin 324 mg p.o., and started on heparin in ED. (04/17) Patient today is currently stable. He is still saying he is a bit short of breath despite duoneb treatment. He does deny having any coughing fits, and the phlegm he coughs up is clear. Patient denies N/V/D. He also is a current smoker, 10 cigarettes a day, and requested a nicotine patch. Patient again stated today that he was having an infection in his eyes. Though he said it was his right eye more so than his left. He says that there is pain now in his right eye but no itching. He said there was pus "oozing" out of his eyes, but upon inspection did not see any drainage. The nurse was also consulted and she did not see the pus drainage either yesterday or last night. Nurse also said the patient had no eye complaints last night. #Chest pain/? 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 Appears to be unprovoked PE. Patient remains tachycardic in the 90s, and hypertensive in ED. CTA is not the most clear, however given clinical picture, vitals, and the findings that could suggest a PE, will treat as such. - CBC mild leukocytosis 10.84, H&H 10.7/36.8; PT/NR pending - CBC am - Troponin peaked at 107.2 yesterday. Repeat Troponin is 72.2. Will discontinue monitoring for troponin levels. - Protein C, S, Antithrombin 3, and factor V Leiden pending - EKG NSR with RBBB and LAFB/bifascicular block 98 bpm - Chest CTA * with distal portion segmental branches of bilateral lower lobes revealing possibility of a segmental pulmonary PE * poor contrast opacification noted distal portion segmental branches of bilateral lower lobes there is a possibility of segmental pulmonary thromboembolism * multiple atelectatic bands in bilateral lower lobes, * mild diffuse intralobular septal thickening noted of both upper lobes, * old fracture with calculus formation of left 6-10 ribs -CXR: * Interval suspicious enlargement of left mid and lower zone pleural based lesion with increased soft tissue density in adjacent region (from chest CT is most likely the old fracture on ribs 6-10) * Interval unchanged cardiomegaly - O2 prn - none at baseline - adjust as patient tolerates - Echo showed: * left ventricular systolic function is moderate to severely reduced. Ejection fraction = 20-25%. * diastolic dysfunction, Grad II (pseudonormalization pattern) * the right atrium is moderately dilated * moderate annular calcification * mild mitral regurg * Right ventricular systolic pressure is elevated at >60mmHg * Inferior vena cava is mildly dilated * Right ventricular systolic function is mildly reduced - Discontinued heparin due to patient request. Replaced heparin with Eliquis 10mg BID. Continue Eliquis. #HFrEF - Patient's echo (as noted above) showed new severely reduced ejection fraction of 20-25%. Last echo was done on 08/26/20 which had an ejection fraction of >70%. - Ordered lipid panel due to echo findings showing severe global hypokinesis, with more notable hypokinesis involving the inferior wall. - Will increase his rosuvastatin to 20mg due to possibility of coronary artery disease from echo results. - Ordered 10mg Juardiance - Ordered spirinolactone 12.5mg. If patient begins to have hyperkalemia will stop medication. - Ordered Entresto due to not having any home medications of JULIANNE or ARB. - Continue metoprolol #COPD - Wheezing was heard throughout exam and patient was still a bit short of breath. - Ordered duoneb treatment #HLD- Rosuvastatin - continue #HTN- Metoprolol - continue #Pain/muscle spasm- Cyclobenzaprine, tramadol - continue #Nicotine Dependence - Patient currently smoking 10 cigarretes a day - Ordered nicotine patches 14mg Patient is homeless. Case management was consulted. He does express significant frustration regarding his living situation. No SI/HI at time of admission. Pt does not have family or a support system. I do believe patient would benefit from having some sort of foundation in his life- should highly consider consulting stoneworker or further discussing the topic of kayleigh with the p atient, as appropriate. Dispo: Admit, PCU VTE Prophylaxis: Eliquis for treatment of PE Admission and Anticipated Discharge Date Admission Date: April 16, 2025 Supervising Physician Co-Signing Physician Notes ATTESTATION I also saw the patient and confirmed berry portions of the history and exam. I agree with the impression and plan in the resident documentation, and as summarized below. Breathing easier. Eating lunch. No complaints at the time of rounds. EXAM 160/85, 93, 23, 93% RA Alert and Oriented. Pleasant and cooperative for my visit. CV regular, slightly tachycardic Lungs with exp wheezing, although less wheezing and improved air movement compared to yesterday DATA Labs WBC 10.8, HgB 10.7 BUN 19, Cr 0.8 Imaging Echo from yesterday shows ef 20-25%, global hypokinesis with noted inferior wall hypokineses Last previous echocardiogram 08/2020 showed ef > 70% IMPRESSION & PLAN PE Given is frustration with repeated blood draws we transitioned to apixaban yesterday Continue apixiaban Suspect COPD Symptomatically improved with duonebs Tobacco cessation Nicotine patch HFrEF Clinically looks euvolemic today Marked worsening in LV function based on echo (now vs 2019); he describes a gradual worsening in exertional capacity over the last few years, but limited most by dyspnea and not chest pain History of "heart attack" not quite clear since he left [facility] prior to completion of work up back in July, Outpatient compliance and follow up will be problematic. Will intensify/add medications for medical management If he is willing, will need cardiology follow up for further evaluation Check lipid profile tomorrow to update LDL (goal less than 70) Increase rosuvastatin to 20 mg Add Entresto ; if insurance coverage is an issue, will revert to ARB Add Jardiance 10 mg Add Aldactone 12.5 mg Likely titrate metoprolol tomorrow (BP and HR should allow) Homelessness Case management aware Additional per resident documentation Subjective Patient is currently stable and states he feels "more at peace". He reports that the nebulizer treatment worked a bit, but not completely. He does deny any coughing fits. Patient restated that he has an infection in his right eye. Said the infection is worse in his right eye and says that it is "oozing". He now says that there is pain with his right eye but no itchiness. Tried to use a tissue to show me, but did not see any signs of pus on the tissue. Consulted with his nurse and she said that he did not say anything about his eyes last night and that she didnt see any signs of pus either. Patient also said that his thumb fingernail was "hooked" and would like a nail clipper. Patient denies N/V/D. Upon reassessing, patient did not bring up his eye symptoms. Review of Systems Review of Systems: per subjective HPI Physical Exam Constitutional: WD/WN, vitals as above Eyes: No signs of discharge. Eyes do not appear red. Respiratory: Auscultation: + wheezes (in upper lobes) Cardiovascular: RRR, no murmur, no edema Skin: cracked fingernail on the thumb Psychiatric: Apperance: + disheveled Speech: normal rate/rhythm/volume of speech Results & Data Results & Data Vital Signs (Past 12 Hours) Vital Signs Temp Pulse Pulse Resp BP BP Pulse Ox 04/17/25 08:16 160/85 H 151/102 H 04/17/25 07:27 36.7 C 84 23 166/109 H 93 04/17/25 07:20 87 04/17/25 07:20 04/17/25 07:20 04/17/25 07:06 85 16 92 04/17/25 03:04 36.6 C 89 20 155/95 H 94 04/17/25 00:16 85 18 92 04/16/25 23:21 36.5 C 90 22 162/88 H 92 Pulse Ox O2 Del Method O2 Del Method 04/17/25 08:16 04/17/25 07:27 Room Air 04/17/25 07:20 04/17/25 07:20 Room Air 04/17/25 07:20 92 Room Air 04/17/25 07:06 Room Air 04/17/25 03:04 Room Air 04/17/25 00:16 Room Air 04/16/25 23:21 Room Air (1) Chest pain Chest pain type: unspecified Qualified Code(s): R07.9 - Chest pain, unspecified
[2025-04-17] MEDS: SPIRONOLACTONE 12.5 MG TAB PO SCH (13:38)
[2025-04-17] MEDS: EMPAGLIFLOZIN 10 MG TAB PO SCH (13:38)
[2025-04-17] MEDS ORDERED: ARTIFICIAL TEARS OPB PRN (18:45)
[2025-04-17] MEDS: VALSARTAN/SACUBITRIL 26/24MG TAB PO SCH (20:04)
[2025-04-18 06:06] LABS: Hematocrit (blood only) 38.5 % (42.0-52.0); Hemoglobin 11.0 g/dl (14.0-18.0); Immature Granulocytes # (auto) 0.05 K/uL (0.01-0.20); Immature Granulocytes % (auto) 0.4 %; Mean Corpuscular Hemoglobin 21.2 pg (25.0-34.0); Mean Corpuscular Volume 74.3 fL (80.0-100.0); Platelet Count 273 K/uL (130-400); RDW Standard Deviation 46.9 fL (36.4-46.3); Red Blood Count 5.18 M/uL (4.70-6.10); White Blood Count 11.75 K/ul (4.8-10.8)
[2025-04-18 06:24] LABS: Alanine Aminotransferase 18.0 U/L (7-52); Albumin Globulin Ratio 1.3 (0.9-2); Alkaline Phosphatase 85.0 U/L (34-104); Anion Gap 4.0 (3-11); Bilirubin,Total 0.5 mg/dl (0.2-1.0); Blood Urea Nitrogen 18.0 mg/dl (6-23); Calcium 8.5 mg/dl (8.6-10.3); Carbon Dioxide 30.0 mmol/L (21-32); Chloride 105.0 mmol/L (98-107); Cholesterol 97.0 mg/dl (0-200); Creatinine Clr Calc Pharmacy 71.6 ml/min; Globulin 2.7 gm/dl (2.5-4.0); Glucose 102.0 mg/dl (70-99(Fasting)); HDL Cholesterol 32.0 mg/dl; Potassium 4.5 mmol/L (3.5-5.1); Sodium 139.0 mmol/L (136-145); Total Protein 6.1 gm/dl (6.0-8.3); Triglycerides 63.0 mg/dl (0-150)
[2025-04-18] MEDS: ROSUVASTATIN CALCIUM 20 MG TAB PO SCH (08:20)
--- NOTE | 2025-04-18 10:39 | Hospitalist Progress Note ---
Date of Service April 18, 2025 Assessment & Plan (1) Chest pain: Plan (Day of Admit) 65-year-old male PMHx chronic OM and previously on chronic antibiotics, HTN, SARITA, polysubstance use disorder, HTN, tobacco dependence, antisocial personality disorder, and depression presenting for onset of shortness of breath and chest pain starting at 2100 the day of arrival. ED evaluation reveals CBC with leukocytosis 10.82, H&H 10.4/35.5; CMP chloride 108, glucose 116, calcium 8.2; troponin 85.3, pending repeat; alcohol <10; CXR interval suspicious enlargement of L mid and lower zone pleural-based lesion with increase of tissue density and adjacent region, interval unchanged cardiomegaly Provided with aspirin 324 mg p.o., and started on heparin in ED. (04/18) Patient today is currently stable and euvolemic. Patient appears to be tolerating his diet well. Patient is a current smoker, 10 cigarettes a day, and requested a nicotine patch. Ordered lubricant eye drops yesterday and patient did not bring up any eye symptoms this morning. #Chest pain/? 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 Appears to be unprovoked PE. Patient remains tachycardic in the 90s, and hypertensive in ED. CTA is not the most clear, however given clinical picture, vitals, and the findings that could suggest a P E, will treat as such. - CBC mild leukocytosis 10.84, H&H 10.7/36.8; PT/NR pending - CBC am - Troponin peaked at 107.2 yesterday. Repeat Troponin is 72.2. Will discontinue monitoring for troponin levels. - Protein C, S, Antithrombin 3, and factor V Leiden pending - EKG NSR with RBBB and LAFB/bifascicular block 98 bpm - Chest CTA * with distal portion segmental branches of bilateral lower lobes revealing possibility of a segmental pulmonary PE * poor contrast opacification noted distal portion segmental branches of bilateral lower lobes there is a possibility of segmental pulmonary thromboembolism * multiple atelectatic bands in bilateral lower lobes, * mild diffuse intralobular septal thickening noted of both upper lobes, * old fracture with calculus formation of left 6-10 ribs -CXR: * Interval suspicious enlargement of left mid and lower zone pleural based lesion with increased soft tissue density in adjacent region * Interval unchanged cardiomegaly - O2 prn - none at baseline - adjust as patient tolerates - Echo showed: * left ventricular systolic function is moderate to severely reduced. Ejection fraction = 20-25%. * diastolic dysfunction, Grad II (pseudonormalization pattern) * the right atrium is moderately dilated * moderate annular calcification * mild mitral regurg * Right ventricular systolic pressure is elevated at >60mmHg * Inferior vena cava is mildly dilated * Right ventricular systolic function is mildly reduced - Discontinued heparin due to patient request. Replaced heparin with Eliquis 10mg BID. Continue Eliquis. - Advised patient about how smoking can cause both COPD and heart disease. - Ordered PT/OT to monitor how he feels when he exerts himself. #HFrEF - Patient's echo (as noted above) showed new severely reduced ejection fraction of 20-25%. Last echo was done on 08/26/20 which had an ejection fraction of >70%. - Ordered lipid panel due to echo findings showing severe global hypokinesis, with more notable hypokinesis involving the inferior wall. - Lipid Panel came back unimpressive. LDLs were 52, TAGs were 63, and Cholesterol was 97. - Will increase his rosuvastatin to 20mg due to possibility of coronary artery disease from echo results. - Ordered 10mg Juardiance - Ordered spirinolactone 12.5mg. If patient begins to have hyperkalemia will stop medication. - Ordered Entresto due to not having any home medications of JULIANNE or ARB. - Continue metoprolol #COPD - Wheezing was heard in the RUL today (04/18). - Will order Duoneb treatment as needed if patient begins to wheeze or complain of shortness of breath. #HLD- Rosuvastatin - continue #HTN- Metoprolol - continue #Pain/muscle spasm- Cyclobenzaprine, tramadol - continue #Nicotine Dependence - Patient currently smoking 10 cigarretes a day - Ordered nicotine patches 14mg Patient is homeless. Case management was consulted. He does express significant frustration regarding his living situation. No SI/HI at time of admission. Pt does not have family or a support system. 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 Dispo: Admit, PCU VTE Prophylaxis: Rosanaquisiah for treatment of PE Admission and Anticipated Discharge Date Admission Date: April 16, 2025 Supervising Physician Co-Signing Physician Notes ATTESTATION I also saw the patient and confirmed berry portions of the history and exam. I agree with the impression and plan in the resident documentation, and as summarized below. A little more information from the patient this morning with respect to his previous "heart attack." After he left here [facility] he went to [facility], and was then transferred to [facility]. [place] what he describes, the recommended a heart catheterization but he "freaked out" and signed out from there. EXAM 142/89, 89, 20 Alert and Oriented. Pleasant and cooperative for my visit. CV regular, slightly tachycardic Lungs with mild end exp wheeze DATA Labs WBC 11.75, HgB 11 BMP WNL LDL 52 (this was on his admission dose of rosuvastatin) Imaging Echo from yesterday shows ef 20-25%, global hypokinesis with noted inferior wall hypokineses Last previous echocardiogram 08/2020 showed ef > 70% IMPRESSION & PLAN PE Given is frustration with repeated blood draws we transitioned to apixaban yesterday Continue apixiaban Suspect COPD Symptomatically improved with duonebs Tobacco cessation Nicotine patch HFrEF Clinically looks euvolemic today Marked worsening in LV function based on echo (now vs 2019); he describes a gradual worsening in exertional capacity over the last few years, but limited most by dyspnea and not chest pain Will try to get records form [facility] for further clarification - and echocardiogram from there may help to put together a timeline Outpatient compliance and follow up will be problematic. Will intensify/add medications for medical management If he is willing, will need cardiology follow up for further evaluation He was actually at-goal in terms of LDL on low-dose rosuvastatin; will had increased to 20mg, but 10 mg probably better for him. Continue Entresto ; if insurance coverage is an issue, will revert to ARB Continue Jardiance 10 mg Continue Aldactone 12.5 mg Likely titrate metoprolol tomorrow if BP and HR Will get him up and moving today and see how he feels Consider discharge tomorrow if he does well today. Homelessness Case management aware Additional per resident documentation Subjective Patient is currently stable and states he feels better. Patient ate his breakfast well and was currently eating ice cream when I walked into the room. Talked with the patient about his episode of heart attack in September 2024. He reports that he left [facility], then went to [facility] where they recommended a electrophonic engineer specialist. He was then transported to [place] where they recommended a catheterization and a sten to be placed. Patient did not wish to go through with the procedure and left the hospital in [place]. Review of Systems Review of Systems: per subjective HPI Physical Exam Constitutional: WD/WN, vitals as above Respiratory: Auscultation: + wheezes (in upper right lobe) Cardiovascular: RRR, no murmur, no edema Psychiatric: Apperance: + disheveled Speech: normal rate/rhythm/volume of speech Results & Data Results & Data Vital Signs (Past 12 Hours) Vital Signs Temp Pulse Pulse Resp BP Pulse Ox O2 Del Method 04/18/25 09:28 36.5 C 89 20 142/89 H 92 Room Air 04/18/25 07:15 85 04/18/25 04:25 93 H 04/18/25 02:56 36.6 C 78 19 147/79 H 92 Room Air 04/17/25 23:45 93 H 04/17/25 23:08 36.8 C 88 24 150/87 H 90 Room Air (1) Chest pain Chest pain type: unspecified Qualified Code(s): R07.9 - Chest pain, unspecified
[2025-04-19 09:51] LABS: Hematocrit (blood only) 42.2 % (42.0-52.0); Hemoglobin 12.0 g/dl (14.0-18.0); Immature Granulocytes # (auto) 0.03 K/uL (0.01-0.20); Immature Granulocytes % (auto) 0.2 %; Mean Corpuscular Hemoglobin 21.0 pg (25.0-34.0); Mean Corpuscular Volume 73.8 fL (80.0-100.0); Platelet Count 283 K/uL (130-400); RDW Standard Deviation 47.0 fL (36.4-46.3); Red Blood Count 5.72 M/uL (4.70-6.10); White Blood Count 12.85 K/ul (4.8-10.8)
[2025-04-19 10:06] LABS: Alanine Aminotransferase 16.0 U/L (7-52); Albumin Globulin Ratio 1.2 (0.9-2); Alkaline Phosphatase 95.0 U/L (34-104); Anion Gap 3.0 (3-11); Bilirubin,Total 0.6 mg/dl (0.2-1.0); Blood Urea Nitrogen 14.0 mg/dl (6-23); Calcium 8.8 mg/dl (8.6-10.3); Carbon Dioxide 32.0 mmol/L (21-32); Chloride 102.0 mmol/L (98-107); Creatinine Clr Calc Pharmacy 68.8 ml/min; Globulin 3.0 gm/dl (2.5-4.0); Glucose 111.0 mg/dl (70-99(Fasting)); Potassium 4.5 mmol/L (3.5-5.1); Sodium 137.0 mmol/L (136-145); Total Protein 6.7 gm/dl (6.0-8.3)
--- NOTE | 2025-04-19 10:55 | Hospitalist Progress Note ---
Date of Service April 19, 2025 Assessment & Plan (1) Chest pain: (2) Pulmonary embolism: (3) HFrEF (heart failure with reduced ejection fraction): (4) COPD (chronic obstructive pulmonary disease): (5) Homeless: Plan This patient is a 65-year-old male PMHx chronic OM and previously on chronic antibiotics, HTN, SARITA, polysubstance use disorder, HTN, tobacco dependence, antisocial personality disorder, and depression presenting for onset of shortness of breath and chest pain starting at 2100 the day of arrival. ED evaluation reveals CBC with leukocytosis 10.82, H&H 10.4/35.5; CMP chloride 108, glucose 116, calcium 8.2; troponin 85.3, pending repeat; alcohol <10; CXR interval suspicious enlargement of L mid and lower zone pleural-based lesion with increase of tissue density and adjacent region, interval unchanged cardiomegaly. Provided with aspirin 324 mg p.o., and started on heparin in ED. #Chest pain | new onset MENDOZA| ? 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 Appears to be unprovoked PE. Patient remains tachycardic in the 90s, and hypertensive in ED. CTA is not the most clear, however given clinical picture, vitals, and the findings that could suggest a PE, patient treated as such - CBC mild leukocytosis 10.84, H&H 10.7/36.8; PT/NR pending - CBC am - Troponin peaked at 107.2 yesterday. Repeat Troponin is 72.2. Will discontinue monitoring for troponin levels. - Protein C, S, Antithrombin 3, and factor V Leiden pending - EKG NSR with RBBB and LAFB/bifascicular block 98 bpm - Chest CTA * with distal portion segmental branches of bilateral lower lobes revealing possibility of a segmental pulmonary PE * poor contrast opacification noted distal portion segmental branches of bilateral lower lobes there is a possibility of segmental pulmonary thromboembolism * multiple atelectatic bands in bilateral lower lobes, * mild diffuse intralobular septal thickening noted of both upper lobes, * old fracture with calculus formation of left 6-10 ribs - CXR: * Interval suspicious enlargement of left mid and lower zone pleural based lesion with increased soft tissue density in adjacent region * Interval unchanged cardiomegaly - Venous doppler RLE: * No DVT appreciated - O2 prn - none at baseline - adjust as patient tolerates - Echo showed: * left ventricular systolic function is moderate to severely reduced. Ejection fraction = 20-25%. * diastolic dysfunction, Grad II (pseudonormalization pattern) * the right atrium is moderately dilated * moderate annular calcification * mild mitral regurg * Right ventricular systolic pressure is elevated at >60mmHg * Inferior vena cava is mildly dilated * Right ventricular systolic function is mildly reduced - Discontinued heparin due to patient request. Replaced heparin with Eliquis 10mg BID. Continue Eliquis. - Given patient's homeless status, it is unclear if patient will be able to afford Eliquis upon discharge - Patient has received extensive education regarding how smoking can cause both COPD and heart disease - Despite noting he can barely walk "30 feet" without getting chest pain and feeling winded, patient declined PT/OT on 04/19 Per PT note on 04/19, patient repeatedly told physical therapy to "get the fuck out", but was able to ambulate to the bathroom independently # HFrEF - Echocardiogram (as noted above) showed new severely reduced ejection fraction of 20-25%. Last echo was done on 08/26/20 which had an ejection fraction of >70%. - Clinically, patient appears euvolemic on 04/19 Unclear how much heart failure is contributing versus acute PE to patient's new onset MENDOZA and chest discomfort - Ordered lipid panel due to echo findings showing severe global hypokinesis, with more notable hypokinesis involving the inferior wall. - Lipid Panel came back unimpressive. LDLs were 52, TAGs were 63, and Cholesterol was 97. - Will increase his rosuvastatin to 20mg due to possibility of coronary artery disease from echo results. - Ordered 10mg Juardiance - Ordered spirinolactone 12.5mg. If patient begins to have hyperkalemia will stop medication. - Ordered Entresto due to not having any home medications of JULIANNE or ARB. - Continue metoprolol #COPD - Wheezing on 04/18 and 04/19 - DuoNeb PRN #HLD- Rosuvastatin - continue #HTN- Metoprolol - continue #Pain/muscle spasm- Cyclobenzaprine, tramadol - continue #Nicotine Dependence - Patient currently smoking 10 cigarretes a day - Ordered nicotine patches 14mg Patient is homeless. Case management was consulted. He does express significant frustration regarding his living situation. No SI/HI at time of admission. Pt does not have family or a support system. I do believe patient would benefit from having some sort of foundation in his life- should highly consider consulting mechanical fitter or further discussing the topic of kayleigh with the patient, as appropriate. Dispo: Continued stay on PCU VTE Prophylaxis: Eliquis for treatment of PE Admission and Anticipated Discharge Date Admission Date: April 16, 2025 Supervising Physician Co-Signing Physician Notes The patient was not seen by me. The chart was reviewed. Case discussed with NORBERT Garnett. Agree with assessment and plan Subjective Mr. Camacho is resting in bed this morning. He reports he is still having chest pain, which he relates to his anxiety with "dealing with the future". No SOB at rest, but does report dyspnea on exertion when getting up. Patient is a current everyday tobacco cigarette smoker, and does report history of COPD. He is currently trying to cut back on his cigarette usage; currently 0.5 PPD. History of AR in September. Patient has had difficulty sleeping in the hospital, and does feel like he has significant anxiety at the future. He reports it is new for him that he has trouble walking "30 feet" before he feels exhausted and needs to sit down due to feeling winded/chest pain. He reports the chest pain is not significant, and rates it a 3 out of 10 whenever it occurs, but it does appear to be exertional. No events overnight. No fevers, not dizzy or lightheaded when using the bathroom. No hemoptysis. Patient is homeless. He receives his medications from [facility], and does report compliance with taking certain medications (like his metoprolol) daily. ROS: Patient endorses chest pain (which he attributes to anxiety), and new onset MENDOZA. Patient denies fever, chills, night sweats, dizziness/lightheadedness, pleuritic CP, abdominal pain, N/V/D, or changes in urinary bowel habits. Review of Systems Review of Systems: See HPI above Physical Exam Physical Exam: General: no acute distress; disheveled in appearance; non-toxic appearing; frail appearing; SpO2 96% on RA HEENT: normocephalic, atraumatic; no scleral icterus; cataracts bilaterally; hearing intact Neck: supple; no lymphadenopathy; trachea midline Skin: warm, dry without signs of tenting; no cyanosis; no rashes, bruising, lesions, or erythema noted CV: chest wall NTP; RRR; S1/S2 normal; no murmurs/rubs/gallops; pulses intact and symmetric at radial, DP, and PT Lungs: no acute respiratory distress; symmetrical chest wall expansion; diminished breath sounds across all lung; ?Minimal expiratory wheeze in the lower lung alas bilaterally ABD: Soft, NTP; BS present; no rebound/guarding; no distention MSK: no tics or fasciculations; +2 pitting edema in the right lower extremity extending from the ankle to the knee, nonerythematous; left lower extremity without edema Neuro: A&Ox3; normal mood and affect; fluent speech; no focal deficits; sensation intact and symmetric in all extremities bilaterally Results & Data Results & Data Vital Signs (Past 12 Hours) Vital Signs Temp Pulse Pulse Resp BP Pulse Ox O2 Del Method 04/19/25 07:15 90 04/19/25 07:15 Room Air 04/19/25 04:26 36.7 C 92 H 16 164/72 H 96 Room Air 04/18/25 22:56 36.8 C 95 H 16 168/76 H 94 Room Air PG Care Time/CCT Total # of Minutes Spent Total Time Spent with Patient: Total time spent is greater than 50% in coordination of care (as documented) at patient's floor/unit and/or counseling patient: [place] [address] SUB INP/OBS CARE 3/50MIN Patient Type Established Medical Decision Making High Complexity Diagnoses Chest pain R07.9 Chest pain type: unspecified Pulmonary embolism I26.99 HFrEF (heart failure with reduced ejection fraction) I50.20 COPD (chronic obstructive pulmonary disease) J44.9 Homeless Z59.00 (1) Chest pain Chest pain type: unspecified Qualified Code(s): R07.9 - Chest pain, unspecified
--- NOTE | 2025-04-19 13:21 | Ultrasound Report ---
US venous doppler LE RT HISTORY: PE; DVT r/o COMPARISON: None TECHNIQUE: Multiple real-time sonographic images of the right lower extremity deep venous structures were obtained assessing grayscale appearance, color and spectral flow. FINDINGS: No evidence of DVT seen in the right lower extremity. IMPRESSION: No DVT seen. ACT 112: Negative or not required by law. The above report was generated using voice recognition software. It may contain grammatical, syntax o r spelling errors. Electronically signed by: Jayson Schultz M.D. 04/19/2025 1:19 PM
[2025-04-20 00:02] VITALS: RESP 16
[2025-04-20 08:20] VITALS: PULSE 82; TEMP 98.2; O2SAT 93
[2025-04-20 10:37] LABS: Hematocrit (blood only) 42.0 % (42.0-52.0); Hemoglobin 11.9 g/dl (14.0-18.0); Immature Granulocytes # (auto) 0.05 K/uL (0.01-0.20); Immature Granulocytes % (auto) 0.4 %; Mean Corpuscular Hemoglobin 21.0 pg (25.0-34.0); Mean Corpuscular Volume 74.1 fL (80.0-100.0); Platelet Count 288 K/uL (130-400); RDW Standard Deviation 47.1 fL (36.4-46.3); Red Blood Count 5.67 M/uL (4.70-6.10); White Blood Count 11.20 K/ul (4.8-10.8)
[2025-04-20 10:51] LABS: Anion Gap 3.0 (3-11); Bilirubin,Total 0.5 mg/dl (0.2-1.0); Calcium 8.8 mg/dl (8.6-10.3); Carbon Dioxide 31.0 mmol/L (21-32); Chloride 104.0 mmol/L (98-107); Potassium 4.9 mmol/L (3.5-5.1); Sodium 138.0 mmol/L (136-145)
[2025-04-20 10:57] LABS: Alanine Aminotransferase 15.0 U/L (7-52); Albumin Globulin Ratio 1.1 (0.9-2); Alkaline Phosphatase 87.0 U/L (34-104); Blood Urea Nitrogen 16.0 mg/dl (6-23); Creatinine Clr Calc Pharmacy 68.8 ml/min; Globulin 3.0 gm/dl (2.5-4.0); Glucose 112.0 mg/dl (70-99(Fasting)); Total Protein 6.4 gm/dl (6.0-8.3)
[2025-04-20 13:36] VITALS: BP 151/102
--- NOTE | 2025-04-20 13:45 | Discharge Summary ---
"Discharge Summary Date of Service April 20, 2025 Principal Dx & Hospital Course #1 = Principal Diagnosis (1) Chest pain: (2) Pulmonary embolism: (3) HFrEF (heart failure with reduced ejection fraction): (4) COPD (chronic obstructive pulmonary disease): (5) Homeless: Plan #Chest pain | new onset MENDOZA| Pulmonary embolism This patient is a 65-year-old male PMHx chronic OM and previously on chronic antibiotics, HTN, SARITA, polysubstance use disorder, HTN, tobacco dependence, antisocial personality disorder, and depression presenting for onset of shortness of breath and chest pain starting at 2100 the day of arrival. ED evaluation reveals CBC with leukocytosis 10.82,troponin 85.3, pending repeat; alcohol <10; CXR interval suspicious enlargement of L mid and lower zone pleural-based lesion with increase of tissue density and adjacent region, interval unchanged cardiomegaly. Chest CTA with distal portion segmental branches of bilateral lower lobes revealing possibility of a segmental pulmonary PE, multiple areas of atelectasis and old rib fractures. Was started on heparin drip and converted to Eliquis. Troponin levels have peaked, patient denies chest pain. Appears to be unprovoked PE, RLE doppler negative. - Protein C, S, Antithrombin 3, and factor V Leiden pending Patient has received extensive education regarding how smoking can cause both COPD and heart disease. Patient declined PT/OT but has been ambulating to the bathroom independently. Patient did make comments about wanting to kill himself on the day of discharge, the behavioral health liason visited him and he has no active plan and likely his feelings are a result of a his currently living situation and non modifiable risk factors. Does not qualify for inpatient stay, is safe for discharge. # HFrEF | HTN | HLD Echo:left ventricular systolic function is moderate to severely reduced. EF 20- 25%. diastolic dysfunction, Grad II (pseudonormalization pattern), Right ventricular systolic pressure is elevated at >60mmHg. Prior echo was done on 08/26/20 which had an ejection fraction of >70%. Lipid Panel came back unimpressive, but increased rosuvastatin to 20mg due to possibility of coronary artery disease from echo results. Given patient is experiencing homelessness and hx of poor follow up - Entresto, Eliquis and metoprolol continue at discharge. CM confirmed no copay for Eliquis and Entresto this month. Could consider further steps of GDMT if patient has appropriate follow up - but risk of starting all of these meds with no follow up and concerned about cost/compliance. #COPD- DuoNeb PRN #Pain/muscle spasm- Cyclobenzaprine, tramadol - continue #Nicotine Dependence - Patient currently smoking 10 cigarretes a day - recommend cessation Dispo: stable for discharge today Admission HPI Per Admitting Provider 65-year-old male PMHx chronic OM and previously on chronic antibiotics, HTN, SARITA, polysubstance use disorder, HTN, tobacco dependence, antisocial personality disorder, and depression presenting for onset of shortness of breath and chest pain starting at 2100 the day of arrival. States that he is homeless, and he was outside by himself when he had a sudden onset of chest pain and SOB. He felt like he could not catch his breath and was gasping for air. States that it took awhile for help to get to him, so he became scared. Pt states that his pain is currently around a 6-7/10 on the pain scale but the pain comes and goes. He does not have any calf tenderness or size discrepancies. He does have some swelling in his bilateral ankles at times. 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 Pt expresses significant frustration regarding his living situation. 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 He does not wish to be resuscitated in the event of an emergency. He denies SI/HI at time of admission. Overall, the patient is without additional complaints. He has never had this happen before. ED evaluation reveals CBC with leukocytosis 10.82, H&H 10.4/35.5; CMP chloride 108, glucose 116, calcium 8.2; troponin 85.3, pending repeat; alcohol <10; CXR interval suspicious enlargement of L mid and lower zone pleural-based lesion with increase of tissue density and adjacent region, interval unchanged cardiomegaly, suggest CT; chest CT evidence of poor contrast opacification noted distal portion segmental branches of bilateral lower lobes there is a possibility of segmental pulmonary thromboembolism, multiple atelectatic bands in bilateral lower lobes, mild diffuse intralobular septal thickening noted of both upper lobes, old fracture with calculus formation of left 6-10 ribs; EKG NSR, RBBB, LAFB, bifascicular block at 98 bpm.; Provided with aspirin 324 mg p.o., and started on heparin in ED. Please see Dr. Anne's attestation for adjustments/additions to treatment plan. Discharge Exam General: VS as above, anger and yelling with any conversation Resp: normal respiratory effort, even while yelling CV: well perfused Extremities: Moves all extremities, no edema Neuro: A&O x3, Discharge Plan Discharge Items Patient Disposition: Home - Self-Care Reason For Visit: PE Discharge Diagnosis: Pulmonary Embolism and new HF Condition on Discharge: Good Activity: Resume your previous activity Weightbearing: Full weightbearing Non-emergency contact: Primary Care Provider Call non-emergency contact if: you have any medication questions, your symptoms worsen, your pain is unusual for you and your temperature is above 101 Follow-up/Referrals: Uli Palencia III, CRNP [Primary Care Provider] - 04/23/25 11:00 am (Hospital follow up on April 23 at 11 am.) Diet: Heart Healthy Addtl Attending Provider Instructions: Mr. Camacho You were hospitalized after having shortness of breath. You were found to have a blood clot in your lungs - this will be treated with Eliquis which is a blood thinner. You had an ultra sound that showed your heart is not functioning as well as it should. For this you have had your cholesterol medicine increased - rosuvastatin 20mg. You have also been started on Entresto and I have refilled you metoprolol. As we discussed multiple things could have caused this blood clot and reduce in heart function, including smoking, drug use, inactivity, etc. Anything you can do to cut back on smoking and cut back on the salt intake in your diet can be helpful for your health. Please return with any new or worsening shortness of breath or chest pain. Pending Studies at Discharge: No Stand-Alone Forms: My [facility] Better Living Yoga, Smoking Cessation Medications and DC Order Prescriptions: New Eliquis 5 mg tablet 5 mg PO BID 30 Days Qty: 65 0RF Rx Instructions: two tabs twice a day x 5 doses then one tab twice a day rosuvastatin 20 mg Tablet 20 mg PO DAILY Qty: 30 0RF Entresto 24-26 mg Tablet 1 tab PO BID 30 Days Qty: 60 0RF Continued tramadol 50 mg tablet 50 mg PO TID PRN (Reason: Pain) Qty: 100 0RF cyclobenzaprine 10 mg tablet 10 mg PO TID PRN (Reason: muscle spasms) Qty: 90 0RF metoprolol succinate 25 mg tablet extended release 24 hr 25 mg PO HS Qty: 30 0RF Discontinued rosuvastatin [Crestor] 5 mg tablet 5 mg PO DAILY Qty: 90 3RF Discharge Orders: Discharge Order (Routine); Ordered 04/20/25 Ordered By: Anna Gross/Other Patient Handouts: Low-Salt Choices, Heart Failure Make Changes Diet Admission Data Admit Date/Time: 04/16/25 03:22 Attending Provider: Franklin Baez Admit Provider: Vivienne Anne Primary Care Provider: Uli Palencia III Other Providers: Vivienne Anne Other Interventions: Discharge Summary Assessment (RN) Last Done: 04/20/25 13:35 Hospital Stay Data Consultations 04/16/25 02:37 ED Decision to Admit Stat 04/20/25 12:22 Consult Behavioral Health Liaison Routine Diagnostic Imagining Performed Chest X-Ray 04/16/25 00:31 EXAM: XR chest 1V portable CLINICAL HISTORY: Chest pain, nonspecific TECHNIQUE: Radiograph of chest was acquired. COMPARISON: 22:27:17 DIRECTOR CLINICAL PHARMACOLOGY FINDINGS: Interval increase of left mid and lower zone pleural based lesion with increased soft tissue density in adjacent soft tissues Rest of the lungs are clear and well-expanded with no pulmonary infiltrate or pleural effusion. Interval unchanged cardiomegaly Rest of the cardiomediastinal silhouette is within normal limits. No acute osseous abnormality. IMPRESSION: Interval suspicious enlargement of left mid and lower zone pleural based lesion with increased soft tissue density in adjacent region Interval unchanged cardiomegaly Suggest CT for further evaluation Electronically signed by Alfredito Calderon 04-16-2025 01:43 AM Chest CTA 04/16/25 00:32 EXAM: CT angio chest PE protocol CLINICAL HISTORY: Chest Pain, eval for PE TECHNIQUE: Contiguous axial images were obtained from the neck base through the upper abdomen following intravenous administration of iodinated contrast material. Angiographic images were processed, 3D MIP images were acquired for interpretation. If IV contrast material had not been administered, the likelihood of detecting abnormalities relevant to the patient's condition would have been substantially decreased. Coronal and sagittal 3-D MIPs were likewise performed and indicated to increase the sensitivity of detectin diffuse clinically relevant pathology. CT scan was performed according to ALARA (as low as reasonable achievable). COMPARISON: jul 28 12:15:12 DIRECTOR CLINICAL PHARMACOLOGY. FINDINGS: Rolling hiatus hernia noted. Evidence of poor contrast opacification is noted involving distal posterior segmental branches of bilateral lower lobes. Mild reflux of contrast seen in inferior vena cava from right atrium. The central airways are patent. Multiple atelectatic bands are noted involving bilateral lower lobes Mild diffuse interlobular septal thickening are noted involving subpleural region of both upper lobes. No pleural effusion. The heart, aorta, and pulmonary arteries are of normal size and configuration. There are no appreciable coronary artery and aortic atherosclerotic calcifications. No pericardial effusion is identified. The thyroid is unremarkable. No mediastinal, hilar, or axillary lymphadenopathy is noted. No suspicious lytic or sclerotic osseous lesions are identified. Old fracture with callus formation and bony remodeling is noted involving left 6-10 ribs. Left side fat containing lateral upper abdominal hernia. IMPRESSION: 1. Evidence of poor contrast opacification is noted involving distal posterior segmental branches of bilateral lower lobes- possibility of segmental pulmonary thromboembolism. ( motion artifacts seen in prior study).- clinical correlation is suggested 2. Rest of pulmonary artery appears patent. 3. Multiple atelectatic bands are noted involving bilateral lower lobes 4. Mild diffuse interlobular septal thickening are noted involving subpleural region of both upper lobes. 5. Old fracture with callus formation and bony remodeling is noted involving left 6-10 ribs. Electronically signed by Alfredito Calderon 04-16-2025 02:13 AM Venous Doppler Study 04/19/25 10:59 US venous doppler LE RT HISTORY: PE; DVT r/o COMPARISON: None TECHNIQUE: Multiple real-time sonographic images of the right lower extremity deep venous structures were obtained assessing grayscale appearance, color and spectral flow. FINDINGS: No evidence of DVT seen in the right lower extremity. IMPRESSION: No DVT seen. ACT 112: Negative or not required by law. The above report was generated using voice recognition software. It may contain grammatical, syntax or spelling errors. Electronically signed by: Jayson Schultz M.D. 04/19/2025 1:19 PM Pending Results Patient Have Any Pending Studies at Discharge: No Discharge Instructions Given to Patient (Per Discharging Provider) Mr. Camacho You were hospitalized after having shortness of breath. You were found to have a blood clot in your lungs - this will be treated with Eliquis which is a blood thinner. You had an ultra sound that showed your heart is not functioning as well as it should. For this you have had your cholesterol medicine increased - rosuvastatin 20mg. You have also been started on Entresto and I have refilled you met oprolol. As we discussed multiple things could have caused this blood clot and reduce in heart function, including smoking, drug use, inactivity, etc. Anything you can do to cut back on smoking and cut back on the salt intake in your diet can be helpful for your health. Please return with any new or worsening shortness of breath or chest pain. Supervising Physician Co-Signing Physician Notes The patient was not seen by me. The chart was reviewed. Case discussed with NORBERT Busch. Agree with assessment and plan Total Time Total Time Spent Total Time Spent (In Minutes): Time spent day of discharge 40 minutes including direct patient care, medication reconciliation, documentation, review of labs and images, and coordination of care. Discussed with CM and behavioral health liason Coding Level of Care Code 07420 INP/OBS DISCH >30 MIN Diagnoses Chest pain R07.9 Chest pain type: unspecified Pulmonary embolism I26.99 HFrEF (heart failure with reduced ejection fraction) I50.20 COPD (chronic obstructive pulmonary disease) J44.9 Homeless Z59.00"
[2025-04-20] MEDS ORDERED: VALSARTAN/SACUBITRIL 26/24MG TAB PO SCH (14:45)
[2025-04-20] MEDS ORDERED: APIXABAN 5 MG TABLET PO SCH (14:45)
== END 2025-04-20 17:33 | disposition home or self-care (01) | DRG 176 ==
LOC: ED 00:23 → SUATTDRO 03:22 → 2E 03:22

== ENCOUNTER 2025-05-24 14:45 | Observation (INO) ==
--- NOTE | 2025-05-24 15:50 | Emergency Department Note ---
Impression & Plan AMS (altered mental status), Suicidal ideation ED Provider Note HISTORY OF PRESENT ILLNESS: Patient is a 65-year-old male presenting with reported changes to vision. Patient reports that at 1300 this afternoon he was putting something in the microwave at the [facility] when he states that "it looked like molding gwen." He states that he got very scared because "I think my vision changes make me a danger to myself and others." He states that "I was afraid if I heated up my food it would have caused a fire which would have injured people." He reports chest pain and shortness of breath, but states he has baseline COPD. He denies any numbness, tingling or weakness in his extremities. He denies any double or blurry vision, just states "I am seeing weird things so I am hallucinating." ROS: as above PHYSICAL EXAM: Constitutional: Patient appears in no acute distress. HENT: Head: Normocephalic and atraumatic. Eyes: EOMI, PERRL Mouth/Throat: Mucous membranes moist. Neck: Trachea midline. Neck supple. Cardiovascular: RRR, No murmurs, rubs or gallops. Intact distal pulses. Pulmonary/Chest: No respiratory distress. Breath sounds clear and equal bilaterally. No wheezes or rales. Abdominal: Abdomen soft, no tenderness, rebound or guarding. Musculoskeletal: No edema, tenderness or deformity noted. Skin: Warm and dry. No rash, erythema, pallor or cyanosis Psychiatric: Appropriate mood and affect for situation. Neurological: Alert and keenly responsive. CN II-XII grossly intact, moving all extremities equally and fully. MDM: - Vitals signs showed hypertension - History obtained via patient. History as above. - Chronic conditions affecting care: DM-2; HTN - Differential diagnoses include, but are not limited to: CVA; intracranial hemorrhage; ACS; electrolyte abnormality; pneumonia; UTI - Order placed for continuous cardiac monitoring. At this time, monitor showed rate of 85 bpm with normal sinus rhythm, per my interpretation. - External medical records reviewed. - EKG image interpreted by myself showed normal sinus rhythm. Rate 84 bpm. QT 418. No acute ischemic changes. Noted to have a right bundle branch block. - Laboratory workup interpreted by myself showed normal WBC; elevated INR (1.3); stable electrolytes; elevated troponin (68.2); normal lipase; normal TSH - Negative salicylate/acetaminophen/alcohol levels - UA negative for infection - UDS negative - CT head wo contrast negative for acute pathology. - CXR image reviewed by myself is an 8 for pneumonia, per my interpretation. - Patient given nicotine patch in ER. - Patient was seen after being medically cleared by behavioral health pillowcase folder. He is now expressing suicidal and homicidal ideation. Patient is still confused as to place orientation. Will admit to hospital service for further evaluation and management. - Elevated opponent is unlikely to be ACS. Patient has a chronically elevated troponin level based on her medical record review. - Discussion was had with pillowcase folder about patient's case and need for admission - Hospitalist consulted for admission - [facility] ASSESSMENT AND PLAN: Diagnosis: altered mental status; suicidal ideation Plan: Admit Past Med/Surg History Problem List (Updated 05/24/25 @ 19:46 by Alyce Hidalgo MD) Suicidal ideation (Acute) AMS (altered mental status) (Acute) Thyroid nodule (Acute) Chronic anemia (Acute) Dysphagia (Acute) Dysarthria (Acute) Homelessness (Acute) Acute alteration in mental status (Acute) Drug abuse (Acute) Unhoused person (Acute) Acute HFrEF (heart failure with reduced ejection fraction) Cardiovascular disease (Chronic) Diabetes mellitus (Chronic) HTN (hypertension) (Chronic) Iron deficiency anemia Hyperglycemia Insomnia Chronic low back pain (Chronic) LVH (left ventricular hypertrophy) (Chronic) severe 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) Lumbar spinal stenosis (Chronic 04/19/14) Medical History Contact with metalworking machinery as cause of accidental injury Wernicke encephalopathy Closed T3 fracture Screening for osteoporosis Hardware failure Diastolic dysfunction Closed fracture of left zygomatic arch Depression Antisocial personality disorder Unspecified mood [affective] disorder Constipation Polysubstance abuse Degenerative lumbar spinal stenosis Osteomyelitis of vertebra Homelessness Polysubstance use disorder Neurogenic claudication due to lumbar spinal stenosis Hypokalemia Elevated CPK Lumbar spinal stenosis Medical non-compliance Psoas abscess Lower back pain Discitis Encephalopathy Rib pain on left side Hyperglycemia Blood loss anemia LVH (left ventricular hypertrophy) Rib fracture left sided, remotely, healed without intervention- does have residual pain over area Obesity Osteoarthritis Hypertension Surgical History History of arthroscopy of shoulder left History of knee replacement right History of back surgery x5 total S/P TKR (total knee replacement) Family History Denies family history of Ovarian cancer Prostate cancer Myocardial infarction Breast cancer Colorectal cancer Social History Smoking Status: Current every day smoker Tobacco Type: Cigarettes Age Started Using Tobacco: 34; packs per day: 0.25; Cigarettes Per Day: 10; Second Hand Exposure: No; Do You Dip or Chew Tobacco: No; Hx Alcohol Use: No Hx Substance Use: No Preferred Language: Gabonese Communication Ability: Effective Visual Impairment: No Limitations 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 Expressed that his housing is unsafe current occupational status: unemployed Feels Safe at Home: No Is there a partner from a previous relationship who is making you feel unsafe now?: No Dental Care, Regularly: No Physical Activity Frequency: Does not Exercise Seatbelt Use: always Assistive Devices: Wheelchair Allergies Allergies Allergy/AdvReac Type Severity Reaction Status Date / Time gabapentin Allergy Severe SHORT OF Verified 05/10/25 03:02 BREATH cat dander Allergy Intermediate itchy Verified 05/10/25 03:02 eyes, sneezing codeine AdvReac Intermediate GI upset Verified 05/10/25 03:02 Home Meds Previous Rx's Medication Instructions Recorded tramadol 50 mg tablet 50 mg PO TID PRN Pain #100 tabs 01/07/25 metoprolol succinate 25 mg 25 mg PO HS #30 tabs 04/20/25 tablet,extended release 24 hr rosuvastatin 20 mg tablet 20 mg PO DAILY #30 tabs 04/20/25 cyclobenzaprine 10 mg tablet 10 mg PO TID PRN muscle spasms #90 05/12/25 tabs Rollator w/ seat #1 ea 05/24/25 Results & Data (ED) Vital Signs Vital Signs - 24 hr 05/24/25 14:50 05/24/25 16:00 05/24/25 17:00 Temperature 36.6 C Temperature Source Oral Pulse Rate 86 81 85 Pulse Rate from SpO2 Sensor Respiratory Rate 22 22 21 Respiratory Effort / Characteristics Non-Labored Spontaneous Respiratory Depth Normal Respiratory Pattern Regular Blood Pressure 159/105 H 151/107 H 153/85 H Blood Pressure Mean 123 121 107 Blood Pressure Position Semi-fowlers Pulse Oximetry 96 96 95 Oxygen Delivery Method Room Air Room Air Room Air Sepsis Recent Fever Within 48 Hours No Sepsis New/Unexplained Change in Mental Status No Sepsis Action Taken by Nursing No Action Required 05/24/25 17:45 05/24/25 17:57 05/24/25 18:15 Temperature Temperature Source Pulse Rate 91 H 92 H 83 Pulse Rate from SpO2 Sensor Respiratory Rate 34 H 31 H 25 H Respiratory Effort / Characteristics Respiratory Depth Respiratory Pattern Blood Pressure Blood Pressure Mean Blood Pressure Position Pulse Oximetry 92 Oxygen Delivery Method Sepsis Recent Fever Within 48 Hours Sepsis New/Unexplained Change in Mental Status Sepsis Action Taken by Nursing 05/24/25 18:36 05/24/25 18:42 05/24/25 18:54 Temperature Temperature Source Pulse Rate 84 88 85 Pulse Rate from SpO2 Sensor 77 Respiratory Rate 33 H 28 H 27 H Respiratory Effort / Characteristics Respiratory Depth Respiratory Pattern Blood Pressure Blood Pressure Mean Blood Pressure Position Pulse Oximetry 94 Oxygen Delivery Method Sepsis Recent Fever Within 48 Hours Sepsis New/Unexplained Change in Mental Status Sepsis Action Taken by Nursing 05/24/25 19:33 Temperature Temperature Source Pulse Rate Pulse Rate from SpO2 Sensor Respiratory Rate Respiratory Effort / Characteristics Non-Labored Respiratory Depth Normal Respiratory Pattern Blood Pressure Blood Pressure Mean Blood Pressure Position Pulse Oximetry Oxygen Delivery Method Sepsis Recent Fever Within 48 Hours Sepsis New/Unexplained Change in Mental Status Sepsis Action Taken by Nursing Laboratory Data 05/24/25 15:17 05/24/25 15:17 Lab Results 05/24/25 05/24/25 05/24/25 Range/Units 14:57 15:17 16:39 WBC 9.97 (4.8-10.8) K/ul RBC 4.96 (4.70-6.10) M/uL Hgb 10.5 L (14.0-18.0) g/dl Hct 36.6 L (42.0-52.0) % MCV 73.8 L (80.0-100.0) fL MCH 21.2 L (25.0-34.0) pg MCHC 28.7 L (32.0-36.0) g/dL RDW Std Deviation 55.0 H (36.4-46.3) fL RDW Coeff of Adele 21.4 H (11.5-14.5) % Plt Count 277 (130-400) K/uL MPV 9.7 (9.4-12.4) fL Immature Gran % (Auto) 0.4 % Neut % (Auto) 80.8 % Lymph % (Auto) 9.2 % Pine % (Auto) 8.2 % Eos % (Auto) 1.1 % Baso % (Auto) 0.3 % Neut # (Auto) 8.05 H (1.40-6.50) K/uL Lymph # (Auto) 0.92 L (1.20-3.40) K/uL Pine # (Auto) 0.82 H (0.11-0.59) K/uL Eos # (Auto) 0.11 (0.00-0.50) K/uL Baso # (Auto) 0.03 (0.00-0.20) K/uL Immature Gran # (Auto) 0.04 (0.01-0.20) K/uL Anisocytosis Present PT 13.5 H (9.0-12.0) Seconds INR 1.3 H (0.9-1.1) Sodium 139 (136-145) mmol/L Potassium 4.2 (3.5-5.1) mmol/L Chloride 108 H (98-107) mmol/L Carbon Dioxide 27 (21-32) mmol/L Anion Gap 4 (3-11) BUN 22 (6-23) mg/dl Creatinine 1.05 (0.6-1.4) mg/dl Est Cr Clr Drug Dosing Not Reportable eGFR 78.29 BUN/Creatinine Ratio 21.0 H (10-20) Glucose 99 (70-99(Fasting)) mg/dl Calcium 8.6 (8.6-10.3) mg/dl Magnesium 1.9 (1.7-2.4) mg/dl Total Bilirubin 0.8 (0.2-1.0) mg/dl AST 30 (13-39) U/L ALT 22 (7-52) U/L Alkaline Phosphatase 88 (34-104) U/L Troponin I High Sens 68.2 H* (0-20) pg/ml Total Protein 6.0 (6.0-8.3) gm/dl Albumin 3.3 L (3.4-5.0) gm/dl Globulin 2.7 (2.5-4.0) gm/dl Albumin/Globulin Ratio 1.2 (0.9-2) Lipase 23 (11-82) U/L TSH 2.036 (0.300-4.500) uIu/ml Urine Color Yellow Urine Appearance Clear (Clear) Urine pH 5.5 (4.5-7.5) Ur Specific [place] >= 1.030 (1.000-1.030) Urine Protein 3+ H (Negative) Urine Glucose (UA) Negative (Negative) Urine Ketones Negative (Negative) Urine Blood Trace-intact H (Negative) Urine Nitrite Negative (Negative) Urine Bilirubin Negative (Negative) Urine Urobilinogen Negative (Negative) Ur Leukocyte Esterase Negative (Negative) Urine RBC 0-2 (0-2) /hpf Urine WBC 0-5 (0-5) /hpf Ur Epithelial Cells 0-2 (0-2) /hpf Urine Bacteria None Seen (None Seen) Urine Mucus Present A (None Prsent) Urine Comment Salicylates < 3.0 L (3.0-30) mg/dl Urine Opiates Screen Neg (Neg) Ur Methadone, Qual Neg (Neg) Urine Fentanyl Screen Neg (Neg) Acetaminophen < 3 L (10-30) ug/ml Urine Barbiturates Neg (Neg) Ur Phencyclidine (PCP) Neg (Neg) U Amphetamin/Meth Scrn Neg (Neg) MDMA (Ecstasy) Screen Neg (Neg) U Benzodiazepines Scrn Neg (Neg) Ur Cocaine Metabolite Neg (Neg) U Marijuana (THC) Screen Neg (Neg) Ethyl Alcohol mg/dL < 10.0 (<10.0) mg/dl 05/24/25 Range/Units 18:02 WBC (4.8-10.8) K/ul RBC (4.70-6.10) M/uL Hgb (14.0-18.0) g/dl Hct (42.0-52.0) % MCV (80.0-100.0) fL MCH (25.0-34.0) pg MCHC (32.0-36.0) g/dL RDW Std Deviation (36.4-46.3) fL RDW Coeff of Adele (11.5-14.5) % Plt Count (130-400) K/uL MPV (9.4-12.4) fL Immature Gran % (Auto) % Neut % (Auto) % Lymph % (Auto) % Pine % (Auto) % Eos % (Auto) % Baso % (Auto) % Neut # (Auto) (1.40-6.50) K/uL Lymph # (Auto) (1.20-3.40) K/uL Pine # (Auto) (0.11-0.59) K/uL Eos # (Auto) (0.00-0.50) K/uL Baso # (Auto) (0.00-0.20) K/uL Immature Gran # (Auto) (0.01-0.20) K/uL Anisocytosis PT (9.0-12.0) Seconds INR (0.9-1.1) Sodium (136-145) mmol/L Potassium (3.5-5.1) mmol/L Chloride (98-107) mmol/L Carbon Dioxide (21-32) mmol/L Anion Gap (3-11) BUN (6-23) mg/dl Creatinine (0.6-1.4) mg/dl Est Cr Clr Drug Dosing eGFR BUN/Creatinine Ratio (10-20) Glucose (70-99(Fasting)) mg/dl Calcium (8.6-10.3) mg/dl Magnesium (1.7-2.4) mg/dl Total Bilirubin (0.2-1.0) mg/dl AST (13-39) U/L ALT (7-52) U/L Alkaline Phosphatase (34-104) U/L Troponin I High Sens 62.7 H* (0-20) pg/ml Total Protein (6.0-8.3) gm/dl Albumin (3.4-5.0) gm/dl Globulin (2.5-4.0) gm/dl Albumin/Globulin Ratio (0.9-2) Lipase (11-82) U/L TSH (0.300-4.500) uIu/ml Urine Color Urine Appearance (Clear) Urine pH (4.5-7.5) Ur Specific [place] (1.000-1.030) Urine Protein (Negative) Urine Glucose (UA) (Negative) Urine Ketones (Negative) Urine Blood (Negative) Urine Nitrite (Negative) Urine Bilirubin (Negative) Urine Urobilinogen (Negative) Ur Leukocyte Esterase (Negative) Urine RBC (0-2) /hpf Urine WBC (0-5) /hpf Ur Epithelial Cells (0-2) /hpf Urine Bacteria (None Seen) Urine Mucus (None Prsent) Urine Comment Salicylates (3.0-30) mg/dl Urine Opiates Screen (Neg) Ur Methadone, Qual (Neg) Urine Fentanyl Screen (Neg) Acetaminophen (10-30) ug/ml Urine Barbiturates (Neg) Ur Phencyclidine (PCP) (Neg) U Amphetamin/Meth Scrn (Neg) MDMA (Ecstasy) Screen (Neg) U Benzodiazepines Scrn (Neg) Ur Cocaine Metabolite (Neg) U Marijuana (THC) Screen (Neg) Ethyl Alcohol mg/dL (<10.0) mg/dl Imaging Data Radiologist's Impression: Chest X-Ray 05/24/25 15:44 Chest radiograph, one view History: Chest pain Comparison: None Findings: Single AP view of the chest performed. No focal consolidation or pleural effusion. No pneumothorax. The cardiomediastinal silhouette appears enlarged, considering AP technique. Normal pulmonary vascularity. No evidence for lymphadenopathy. No visualized bony or soft tissue abnormality. Chronic deformity of the left lower rib cage again seen. Impression: No acute process Electronically signed by Brian Galicia 05-24-2025 4:[address] 05/24/25 15:44 CT head without contrast History: Hallucination Comparison: 05/11/2025 Technique: Using multidetector thin collimation helical acquisition technique, axial, coronal and sagittal CT images from the skull base to the vertex were obtained without intravenous contrast. Dose reduction techniques were achieved by using automatic exposure control and/or adjustment of mA and/or kV according to patient size and/or use of iterative reconstruction technique. Findings: No intracranial hemorrhage, mass-effect, or midline shift. The ventricles are proportionate to the cerebral sulci. Chronic right frontal lobe infarct, otherwise the mcrae to white matter differentiation of the cerebral hemispheres is preserved. The basal cisterns are patent. The visualized paranasal sinuses are clear. Mastoid air cells are clear. Impression: No acute intracranial pathology. Electronically signed by Brian Galicia 05-24-2025 4:42 PM Discharge Plan Visit Data Chief Complaint: Mental Health Evaluation Stated Complaint: AMS ED Provider: Alyce Hidalgo Discharge Problem: AMS (altered mental status), Suicidal ideation Condition: Fair Forms Stand Alone Forms: [facility], Suicide Prevention Resources Prescriptions Prescriptions: No Action tramadol 50 mg tablet 50 mg PO TID PRN (Reason: Pain) Qty: 100 0RF cyclobenzaprine 10 mg tablet 10 mg PO TID PRN (Reason: muscle spasms) Qty: 90 0RF (DME) Rollator w/ seat See Rx Instructions .Route .MEDSUPPLY Qty: 1 0RF Rx Instructions: As directed rosuvastatin 20 mg Tablet 20 mg PO DAILY Qty: 30 0RF metoprolol succinate 25 mg tablet extended release 24 hr 25 mg PO HS Qty: 30 0RF Referrals Referrals: Uli Palencia III, CRNP [Primary Care Provider] -
[2025-05-24 16:04] LABS: Hematocrit (blood only) 36.6 % (42.0-52.0); Hemoglobin 10.5 g/dl (14.0-18.0); Immature Granulocytes # (auto) 0.04 K/uL (0.01-0.20); Immature Granulocytes % (auto) 0.4 %; Mean Corpuscular Hemoglobin 21.2 pg (25.0-34.0); Mean Corpuscular Volume 73.8 fL (80.0-100.0); Platelet Count 277 K/uL (130-400); RDW Standard Deviation 55.0 fL (36.4-46.3); Red Blood Count 4.96 M/uL (4.70-6.10); White Blood Count 9.97 K/ul (4.8-10.8)
[2025-05-24 16:18] LABS: Alanine Aminotransferase 22 U/L (7-52); Albumin Globulin Ratio 1.2 (0.9-2); Alkaline Phosphatase 88 U/L (34-104); Anion Gap 4 (3-11); Bilirubin,Total 0.8 mg/dl (0.2-1.0); Blood Urea Nitrogen 22 mg/dl (6-23); Calcium 8.6 mg/dl (8.6-10.3); Carbon Dioxide 27 mmol/L (21-32); Chloride 108 mmol/L (98-107); Globulin 2.7 gm/dl (2.5-4.0); Glucose 99 mg/dl (70-99(Fasting)); Lipase 23 U/L (11-82); Magnesium 1.9 mg/dl (1.7-2.4); Potassium 4.2 mmol/L (3.5-5.1); Sodium 139 mmol/L (136-145); Total Protein 6.0 gm/dl (6.0-8.3)
[2025-05-24 16:19] LABS: Anisocytosis Present
--- NOTE | 2025-05-24 16:23 | XRay Report ---
Chest radiograph, one view History: Chest pain Comparison: None Findings: Single AP view of the chest performed. No focal consolidation or pleural effusion. No pneumothorax. The cardiomediastinal silhouette appears enlarged, considering AP technique. Normal pulmonary vascularity. No evidence for lymphadenopathy. No visualized bony or soft tissue abnormality. Chronic deformity of the left lower rib cage again seen. Impression: No acute process Electronically signed by Brian Galicia 05-24-2025 4:22 PM
[2025-05-24 16:34] LABS: Thyroid Stimulating Hormone 2.036 uIu/ml (0.300-4.500)
[2025-05-24 16:37] LABS: Appearance Urine Clear (Clear); Glucose Urine UA Negative (Negative)
--- NOTE | 2025-05-24 16:43 | CT Scan Report ---
CT head without contrast History: Hallucination Comparison: 05/11/2025 Technique: Using multidetector thin collimation helical acquisition technique, axial, coronal and sagittal CT images from the skull base to the vertex were obtained without intravenous contrast. Dose reduction techniques were achieved by using automatic exposure control and/or adjustment of mA and/or kV according to patient size and/or use of iterative reconstruction technique. Findings: No intracranial hemorrhage, mass-effect, or midline shift. The ventricles are proportionate to the cerebral sulci. Chronic right frontal lobe infarct, otherwise the mcrae to white matter differentiation of the cerebral hemispheres is preserved. The basal cisterns are patent. The visualized paranasal sinuses are clear. Mastoid air cells are clear. Impression: No acute intracranial pathology. Electronically signed by Brian Galicia 05-24-2025 4:42 PM
[2025-05-24 17:00] LABS: Acetaminophen < 3 ug/ml (10-30); Salicylate < 3.0 mg/dl (3.0-30)
[2025-05-24 17:08] LABS: Epithelial Cell Urine 0-2 /hpf (0-2)
[2025-05-24 17:21] LABS: INR 1.3 (0.9-1.1); Prothrombin Time 13.5 Seconds (9.0-12.0)
[2025-05-24 17:35] LABS: Amphetamines+Metham, Urine Neg (Neg); MDMA (Ecstacy), Urine Neg (Neg); Marijuana, Urine Neg (Neg)
--- NOTE | 2025-05-24 20:15 | History & Physical Report ---
Date of Service May 24, 2025 Assessment & Plan (1) Visual hallucination: (2) COPD (chronic obstructive pulmonary disease): (3) HFrEF (heart failure with reduced ejection fraction): (4) HTN (hypertension): (5) Pulmonary embolism: (6) Homeless: Plan 65yo male with history of HFrEF, COPD and HTN presenting with visual hallucinations. #Visual hallucinations - patient reports things looking like "modeling gwen". Etiology uncertain. Labs are largely unremarkable. CT of the head is negative for acute findings. Urine toxicology screen and EtOH levels are negative. -Admit to medical with telemetry -Check Ammonia level, Mg and PO4 -Frequent orientation -Will hold Flexeril for now #COPD - patient with adequate oxygenation on room air. No cough or wheeze. He does endorse some stable baseline SOB -DuoNeb PRN #HFrEF - patient with new bilateral LE edema. -Check BNP -Continue patient's Metoprolol and Entresto #HTN - elevated blood pressure at present -Continue Metoprolol and Entresto -Continue to monitor #Pulmonary embolism - diagnosed on recent admission. Patient discharged on Eliquis. Uncertain if he has been taking it -Continue Eliquis #Homelessness - patient reports that he has been staying at [facility]. He reports that his health braxton been improving since he has been off the streets. He has a cataract surgery planned on his left eye but this procedure has been cancelled due to patient's unstable housing condition. He is motivated to obtain a more stable living situation so he can get his cataract surgery performed. Patient reports that he has been speaking with a socially responsible investment adviser, Ursula Bowling who is trying to get him placed in a SNF. He is unclear on the specific details -Case management consultation re: placement #Tobacco use -Nicotine patch ordered #Stated suicidal ideation -Safe tray -Suicide precautions -1:1 observation History of Present Illness Chief Complaint: hallucinations Primary Care Provider: Uli Palencia III, AUGUSTUS Tigre Camacho is a 65yo unhoused male with history of COPD, HFrEF (EF 20-25% per echo 04/16/2025). He was recently admitted to [facility] from 04/16 - 04/20/2025 after presenting with chest pain and shortness of breath. Patient found to have segmental PE a well as atelectasis and rib fractures. He was managed with a heparin drip and ultimately discharged home on Eliquis. Patient presents today with complaint of hallucinations. He states that things look like "molding gwen". He states that today he was looking at the microwave and it turned into gwen. He reports that the lights in the room presently look like they're made of mcrae gwen. He also reports hearing voices telling him to get help. Patient denies fever, chills, falls or trauma. Denies EtOH or drug use. He does have chest pain and shortness of breath ongoing all day as well as abdominal pain and diarrhea. Patient manages his own medications but is not sure what he is taking. He was recently discharged on Eliquis but is uncertain if he is taking this medication. No additional complaints at this time. In the ER patient was evaluated by Psych liason and was noted to be suicidal and homicidal and states that he was not safe to be around people. He denies active plan. Patient has been staying at the group home [facility] and has been working wi th a socially responsible investment adviser, Ursula Bowling. He says that she is trying to get him placed in a SNF and that she has found two locations that will accept his insurance. In the ER he is afebrile, hypertensive Allergies Allergy/AdvReac Type Severity Reaction Status Date / Time gabapentin Allergy Severe SHORT OF Verified 05/10/25 03:02 BREATH cat dander Allergy Intermediate itchy Verified 05/10/25 03:02 eyes, sneezing codeine AdvReac Intermediate GI upset Verified 05/10/25 03:02 Home Medications Medication Instructions Recorded Confirmed Type tramadol 50 mg tablet 50 mg PO TID PRN Pain #100 tabs 01/07/25 05/24/25 Rx metoprolol succinate 25 mg 25 mg PO HS #30 tabs 04/20/25 05/24/25 Rx tablet,extended release 24 hr rosuvastatin 20 mg tablet 20 mg PO DAILY #30 tabs 04/20/25 05/24/25 Rx cyclobenzaprine 10 mg tablet 10 mg PO TID PRN muscle spasms #90 05/12/25 05/24/25 Rx tabs Rollator w/ seat #1 ea 05/24/25 05/24/25 Rx apixaban 5 mg tablet (Eliquis) 5 mg PO DAILY 05/24/25 05/24/25 History sacubitril 24 mg-valsartan 26 mg 1 tab PO BID 05/24/25 05/24/25 History tablet (Entresto) Past Med/Surg History Problem List (Updated 05/24/25 @ 20:52 by Vivienne Anne DO) Visual hallucination Suicidal ideation (Acute) AMS (altered mental status) (Acute) Thyroid nodule (Acute) Chronic anemia (Acute) Dysphagia (Acute) Dysarthria (Acute) Homelessness (Acute) Acute alteration in mental status (Acute) Drug abuse (Acute) Unhoused person (Acute) Acute HFrEF (heart failure with reduced ejection fraction) Cardiovascular disease (Chronic) Diabetes mellitus (Chronic) HTN (hypertension) (Chronic) Iron deficiency anemia Hyperglycemia Insomnia Chronic low back pain (Chronic) LVH (left ventricular hypertrophy) (Chronic) severe 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) Lumbar spinal stenosis (Chronic 04/19/14) Medical History COPD (chronic obstructive pulmonary disease) HFrEF (heart failure with reduced ejection fraction) Pulmonary embolism Homeless Contact with metalworking machinery as cause of accidental injury Wernicke encephalopathy Closed T3 fracture Screening for osteoporosis Hardware failure Diastolic dysfunction Closed fracture of left zygomatic arch Depression Antisocial personality disorder Unspecified mood [affective] disorder Constipation Polysubstance abuse Degenerative lumbar spinal stenosis Osteomyelitis of vertebra Homelessness Polysubstance use disorder Neurogenic claudication due to lumbar spinal stenosis Hypokalemia Elevated CPK Lumbar spinal stenosis Medical non-compliance Psoas abscess Lower back pain Discitis Encephalopathy Rib pain on left side Hyperglycemia Blood loss anemia LVH (left ventricular hypertrophy) Rib fracture left sided, remotely, healed without intervention- does have residual pain over area Obesity Osteoarthritis Hypertension Surgical History History of arthroscopy of shoulder left History of knee replacement right History of back surgery x5 total S/P TKR (total knee replacement) Family History Denies family history of Ovarian cancer Prostate cancer Myocardial infarction Breast cancer Colorectal cancer Social History Smoking Status: Current every day smoker Tobacco Type: Cigarettes Age Started Using Tobacco: 34; packs per day: 0.25; Cigarettes Per Day: 10; Second Hand Exposure: No; Do You Dip or Chew Tobacco: No; Hx Alcohol Use: No Hx Substance Use: No Preferred Language: Malay Communication Ability: Effective Visual Impairment: No Limitations Journey Lineman Required: No Beliefs That Will Affect Care: None marital status: Single Current Living Situation: Homeless Current Living Situation Comment: Patient lives alone in an apartment. Expressed that his housing is unsafe current occupational status: unemployed Feels Safe at Home: No Is there a partner from a previous relationship who is making you feel unsafe now?: No Dental Care, Regularly: No Physical Activity Frequency: Does not Exercise Seatbelt Use: always Assistive Devices: Wheelchair Review of Systems Review of Systems: All systems reviewed & are unremarkable except as noted in HPI & below Physical Exam Physical Exam: General: patient resting comfortably, NAD, chronically ill in appearance, oriented to person and location Skin: warm, dry, intact, no rashes or lesions HEENT: NC/AT, PERRL, EOMI, anicteric sclera, couding of left lens, conjunctiva without injection, external ear normal to inspection and nontender, nares patent, moist mucus membranes, dentition intact, no oropharyngeal lesions, neck supple, trachea midline, no LAD, no thyromegaly, no JVD Heart: +S1/S2, regular, no m/r/g Lungs: equal air entry bilaterally, no rales/rhonchi/wheezes Abd: +BS, soft, ND, diffusely tender to palpation with no rebound/guarding or peritonitis, no masses/organomegaly/ascites Ext: warm, 2+ pulses in UE/LE bilaterally, no clubbing/cyanosis, 2+ edema of bilateral LE Neuro: nonfocal, patient AA&O x 2, speech intact but slightly garbled at baseline, no facial droop, moving all extremities on command with equal strength 5/5 Results & Data Results & Data Vital Signs (Past 12 Hours) Vital Signs Temp Pulse Pulse Resp BP BP Pulse Ox 05/24/25 19:51 84 16 160/108 H 95 05/24/25 18:54 85 27 H 05/24/25 18:42 88 28 H 94 05/24/25 18:36 84 33 H 05/24/25 18:15 83 25 H 92 05/24/25 17:57 92 H 31 H 05/24/25 17:45 91 H 34 H 05/24/25 17:00 85 21 153/85 H 95 05/24/25 16:00 81 22 151/107 H 96 05/24/25 14:50 36.6 C 86 22 159/105 H 96 O2 Del Method 05/24/25 19:51 Room Air 05/24/25 18:54 05/24/25 18:42 05/24/25 18:36 05/24/25 18:15 05/24/25 17:57 05/24/25 17:45 05/24/25 17:00 Room Air 05/24/25 16:00 Room Air 05/24/25 14:50 Room Air Laboratory Results Laboratory Results WBC 9.97 K/ul (4.8-10.8) 05/24/25 15:17 RBC 4.96 M/uL (4.70-6.10) 05/24/25 15:17 Hgb 10.5 g/dl (14.0-18.0) L 05/24/25 15:17 Hct 36.6 % (42.0-52.0) L 05/24/25 15:17 MCV 73.8 fL (80.0-100.0) L 05/24/25 15:17 MCH 21.2 pg (25.0-34.0) L 05/24/25 15:17 MCHC 28.7 g/dL (32.0-36.0) L 05/24/25 15:17 RDW Std Deviation 55.0 fL (36.4-46.3) H 05/24/25 15:17 RDW Coeff of Adele 21.4 % (11.5-14.5) H 05/24/25 15:17 Plt Count 277 K/uL (130-400) 05/24/25 15:17 MPV 9.7 fL (9.4-12.4) 05/24/25 15:17 Immature Gran % (Auto) 0.4 % 05/24/25 15:17 Neut % (Auto) 80.8 % 05/24/25 15:17 Lymph % (Auto) 9.2 % 05/24/25 15:17 Rowan % (Auto) 8.2 % 05/24/25 15:17 Eos % (Auto) 1.1 % 05/24/25 15:17 Baso % (Auto) 0.3 % 05/24/25 15:17 Neut # (Auto) 8.05 K/uL (1.40-6.50) H 05/24/25 15:17 Lymph # (Auto) 0.92 K/uL (1.20-3.40) L 05/24/25 15:17 Rowan # (Auto) 0.82 K/uL (0.11-0.59) H 05/24/25 15:17 Eos # (Auto) 0.11 K/uL (0.00-0.50) 05/24/25 15:17 Baso # (Auto) 0.03 K/uL (0.00-0.20) 05/24/25 15:17 Immature Gran # (Auto) 0.04 K/uL (0.01-0.20) 05/24/25 15:17 Anisocytosis Present 05/24/25 15:17 PT 13.5 Seconds (9.0-12.0) H 05/24/25 16:39 INR 1.3 (0.9-1.1) H 05/24/25 16:39 Sodium 139 mmol/L (136-145) 05/24/25 15:17 Potassium 4.2 mmol/L (3.5-5.1) 05/24/25 15:17 Chloride 108 mmol/L (98-107) H 05/24/25 15:17 Carbon Dioxide 27 mmol/L (21-32) 05/24/25 15:17 Anion Gap 4 (3-11) 05/24/25 15:17 BUN 22 mg/dl (6-23) 05/24/25 15:17 Creatinine 1.05 mg/dl (0.6-1.4) 05/24/25 15:17 Est Cr Clr Drug Dosing Not Reportable 05/24/25 15:17 eGFR 78.29 05/24/25 15:17 BUN/Creatinine Ratio 21.0 (10-20) H 05/24/25 15:17 Glucose 99 mg/dl (70-99(Fasting)) 05/24/25 15:17 Calcium 8.6 mg/dl (8.6-10.3) 05/24/25 15:17 Magnesium 1.9 mg/dl (1.7-2.4) 05/24/25 15:17 Total Bilirubin 0.8 mg/dl (0.2-1.0) 05/24/25 15:17 AST 30 U/L (13-39) 05/24/25 15:17 ALT 22 U/L (7-52) 05/24/25 15:17 Alkaline Phosphatase 88 U/L (34-104) 05/24/25 15:17 Troponin I High Sens 62.7 pg/ml (0-20) H* 05/24/25 18:02 Total Protein 6.0 gm/dl (6.0-8.3) 05/24/25 15:17 Albumin 3.3 gm/dl (3.4-5.0) L 05/24/25 15:17 Globulin 2.7 gm/dl (2.5-4.0) 05/24/25 15:17 Albumin/Globulin Ratio 1.2 (0.9-2) 05/24/25 15:17 Lipase 23 U/L (11-82) 05/24/25 15:17 TSH 2.036 uIu/ml (0.300-4.500) 05/24/25 15:17 Urine Color Yellow 05/24/25 14:57 Urine Appearance Clear (Clear) 05/24/25 14:57 Urine pH 5.5 (4.5-7.5) 05/24/25 14:57 Ur Specific Reading >= 1.030 (1.000-1.030) 05/24/25 14:57 Urine Protein 3+ (Negative) H 05/24/25 14:57 Urine Glucose (UA) Negative (Negative) 05/24/25 14:57 Urine Ketones Negative (Negative) 05/24/25 14:57 Urine Blood Trace-intact (Negative) H 05/24/25 14:57 Urine Nitrite Negative (Negative) 05/24/25 14:57 Urine Bilirubin Negative (Negative) 05/24/25 14:57 Urine Urobilinogen Negative (Negative) 05/24/25 14:57 Ur Leukocyte Esterase Negative (Negative) 05/24/25 14:57 Urine RBC 0-2 /hpf (0-2) 05/24/25 14:57 Urine WBC 0-5 /hpf (0-5) 05/24/25 14:57 Ur Epithelial Cells 0-2 /hpf (0-2) 05/24/25 14:57 Urine Bacteria None Seen (None Seen) 05/24/25 14:57 Urine Mucus Present (None Prsent) A 05/24/25 14:57 Urine Comment 05/24/25 14:57 Salicylates < 3.0 mg/dl (3.0-30) L 05/24/25 15:17 Urine Opiates Screen Neg (Neg) 05/24/25 14:57 Ur Methadone, Qual Neg (Neg) 05/24/25 14:57 Urine Fentanyl Screen Neg (Neg) 05/24/25 14:57 Acetaminophen < 3 ug/ml (10-30) L 05/24/25 15:17 Urine Barbiturates Neg (Neg) 05/24/25 14:57 Ur Phencyclidine (PCP) Neg (Neg) 05/24/25 14:57 U Amphetamin/Meth Scrn Neg (Neg) 05/24/25 14:57 MDMA (Ecstasy) Screen Neg (Neg) 05/24/25 14:57 U Benzodiazepines Scrn Neg (Neg) 05/24/25 14:57 Ur Cocaine Metabolite Neg (Neg) 05/24/25 14:57 U Marijuana (THC) Screen Neg (Neg) 05/24/25 14:57 Ethyl Alcohol mg/dL < 10.0 mg/dl (<10.0) 05/24/25 15:17 Impressions Chest X-Ray 05/24/25 15:44 Chest radiograph, one view History: Chest pain Comparison: None Findings: Single AP view of the chest performed. No focal consolidation or pleural effusion. No pneumothorax. The cardiomediastinal silhouette appears enlarged, considering AP technique. Normal pulmonary vascularity. No evidence for lymphadenopathy. No visualized bony or soft tissue abnormality. Chronic deformity of the left lower rib cage again seen. Impression: No acute process Electronically signed by Brian Galicia 05-24-2025 4:[address] 05/24/25 15:44 CT head without contrast History: Hallucination Comparison: 05/11/2025 Technique: Using multidetector thin collimation helical acquisition technique, axial, coronal and sagittal CT images from the skull base to the vertex were obtained without intravenous contrast. Dose reduction techniques were achieved by using automatic exposure control and/or adjustment of mA and/or kV according to patient size and/or use of iterative reconstruction technique. Findings: No intracranial hemorrhage, mass-effect, or midline shift. The ventricles are proportionate to the cerebral sulci. Chronic right frontal lobe infarct, otherwise the mcrae to white matter differentiation of the cerebral hemispheres is preserved. The basal cisterns are patent. The visualized paranasal sinuses are clear. Mastoid air cells are clear. Impression: No acute intracranial pathology. Electronically signed by Brian Galicia 05-24-2025 4:42 PM ECG Additional Comments: EKG with NSR at 84bpm, no acute ischemic changes, RBBB present similar to prior PG Care Time/CCT Total # of Minutes Spent Total Time Spent with Patient: Total time spent is greater than 50% in coordination of care (as documented) at patient's floor/unit and/or counseling patient: Coding Level of Care Code 02758 INT INP/OBS CARE 3/75MIN Diagnoses Visual hallucination R44.1 COPD (chronic obstructive pulmonary disease) J44.9 HFrEF (heart failure with reduced ejection fraction) I50.20 Primary hypertension I10 Hypertension type: primary hypertension Pulmonary embolism I26.99 Homeless Z59.00 (4) HTN (hypertension) Hypertension type: primary hypertension Qualified Code(s): I10 - Essential (primary) hypertension
[2025-05-24] MEDS ORDERED: ALBUT/IPRATROP 3MG/0.5MG NEB 3 ML VIAL NEB PRN (22:03)
[2025-05-24] MEDS ORDERED: ACETAMINOPHEN 325 MG TAB PO PRN (22:03)
[2025-05-24] MEDS ORDERED: ONDANSETRON INJ 2 MG/ML 2 ML VIAL IV PRN (22:03)
[2025-05-24] MEDS ORDERED: DOCUSATE SODIUM 100 MG CAP PO PRN (22:03)
[2025-05-24] MEDS: NICOTINE 14 MG/24 HR PATCH TD STA (22:43)
[2025-05-24] MEDS: VALSARTAN/SACUBITRIL 26/24MG TAB PO SCH (22:44)
[2025-05-24] MEDS: METOPROLOL SUCC 25MG EXT REL TAB PO SCH (22:44)
[2025-05-25] MEDS: FUROSEMIDE INJ 20 MG/2 ML VIAL IV ONE (01:51)
[2025-05-25 04:24] LABS: Hematocrit (blood only) 38.1 % (42.0-52.0); Hemoglobin 10.9 g/dl (14.0-18.0); Mean Corpuscular Hemoglobin 21.1 pg (25.0-34.0); Mean Corpuscular Volume 73.8 fL (80.0-100.0); Platelet Count 292 K/uL (130-400); RDW Standard Deviation 54.4 fL (36.4-46.3); Red Blood Count 5.16 M/uL (4.70-6.10); White Blood Count 11.48 K/ul (4.8-10.8)
[2025-05-25 04:39] LABS: Anion Gap 6.0 (3-11); Blood Urea Nitrogen 23.0 mg/dl (6-23); Calcium 8.6 mg/dl (8.6-10.3); Carbon Dioxide 26.0 mmol/L (21-32); Chloride 105.0 mmol/L (98-107); Creatinine Clr Calc Pharmacy 60.9 ml/min; Glucose 122.0 mg/dl (70-99(Fasting)); Potassium 4.2 mmol/L (3.5-5.1); Sodium 137.0 mmol/L (136-145)
[2025-05-25] MEDS ORDERED: REMOVE NICODERM PATCH SCH (08:59)
--- NOTE | 2025-05-25 09:11 | Hospitalist Progress Note ---
Date of Service May 25, 2025 Assessment & Plan (1) Visual hallucination: Plan: -no evidence of illicit drugs or etoh -pt with depression and suicidal ideation -psych consult pending -con't 1:1 (2) COPD (chronic obstructive pulmonary disease): Plan: -duonebs prn (3) HFrEF (heart failure with reduced ejection fraction): Plan: -con't metoprolol and rayna (4) HTN (hypertension): Plan: -metoprolol and rayna (5) Pulmonary embolism: Plan: -con't eliquis (6) Homeless: Plan: -social work follow up Plan 65yo male with history of HFrEF, COPD and HTN presenting with visual hallucinations. Admission and Anticipated Discharge Date Admission Date: May 24, 2025 Subjective No events overnight. Pt resting in bed, still feels depressed this am. Did not admit to overnight hallucinations. Review of Systems Review of Systems: CONST: Negative for fever, body aches and chills. HENT: Negative for neck pain/stiffness, headache, congestion, sore throat, swelling. EYES: Negative for discharge/pain or vision changes. RESP: Negative for cough/hemoptysis and shortness of breath. CV: Negative chest pain, difficulty breathing, palpitations. ABD: Negative pain, nausea, vomiting. : Negative increase frequency, dysuria, blood in urine or stool. MUSC: Negative for muscle aches, edema. SKIN: Negative rash, lesions/sores. NEURO: Negative headache, dizziness, weakness. Physical Exam Physical Exam: GENERAL APPEARANCE NAD, activity normal for age, well developed/ well nourished, no cyanosis, pallor, or diaphoresis. EYES lids/conjunctiva normal. EARS/NOSE/THROAT Mucous membranes moist, nares normal, lips/teeth normal uvula midline without oral pharyngeal erythema, exudate or swelling TMs normal bilaterally. No lymphangitis/lymphedema. HEAD/NECK normocephalic atraumatic, no facial trauma, neck is supple. RESPIRATORY respiratory effort normal, speaks in full sentences, no tripod position, no accessory muscle use. Lungs clear to auscultation without rhonchi, wheezes, rales CARDIAC Regular rate and rhythm, no edema. ABDOMINAL Soft, ND/NT. No evidence of fluid wave. No pulsatile masses on exam, rebound tenderness, Navarro sign or pain over Mcburney's point. MUSCLES/EXTREMITIES No abnormal range of motion, no swelling. SKIN Warm, pink and dry. No rashes, dermatoses, petechiae or lesions. NEUROLOGICAL Speech is clear and appropriate. Normal level of consciousness. Gait and coordination are normal. 5/5 strength in all extremities. PSYCH Normal mood and affect. Judgement/competence is appropriate Results & Data Results & Data Vital Signs (Past 12 Hours) Vital Signs Temp Pulse Pulse Resp BP BP Pulse Ox 05/25/25 07:28 36.4 C L 81 18 143/82 H 95 05/25/25 07:19 86 05/25/25 04:30 36.6 C 80 18 160/96 H 93 05/25/25 00:40 78 05/25/25 00:35 05/25/25 00:35 37.0 C 80 22 161/98 H 91 05/24/25 23:38 36.6 C 96 H 16 167/102 H 96 05/24/25 23:30 86 24 167/102 H 96 05/24/25 21:48 86 18 159/99 H O2 Del Method 05/25/25 07:28 Room Air 05/25/25 07:19 05/25/25 04:30 Room Air 05/25/25 00:40 05/25/25 00:35 Room Air 05/25/25 00:35 Room Air 05/24/25 23:38 Room Air 05/24/25 23:30 Room Air 05/24/25 21:48 Room Air PG Care Time/CCT Total # of Minutes Spent Total Time Spent with Patient: Total time spent is greater than 50% in coordination of care (as documented) at patient's floor/unit and/or counseling patient: Coding Level of Care Code 23194 SUB INP/OBS CARE 2/35MIN Diagnoses Visual hallucination R44.1 COPD (chronic obstructive pulmonary disease) J44.9 HFrEF (heart failure with reduced ejection fraction) I50.20 Primary hypertension I10 Hypertension type: primary hypertension Pulmonary embolism I26.99 Homeless Z59.00 (4) HTN (hypertension) Hypertension type: primary hypertension Qualified Code(s): I10 - Essential (primary) hypertension
[2025-05-25] MEDS: APIXABAN 5 MG TABLET PO SCH (09:20)
[2025-05-25] MEDS: NICOTINE 14 MG/24 HR PATCH TD SCH (09:20)
[2025-05-25] MEDS: ROSUVASTATIN CALCIUM 20 MG TAB PO SCH (09:20)
[2025-05-25] MEDS: REMOVE NICODERM PATCH SCH (09:22)
--- NOTE | 2025-05-26 11:04 | Psychiatric Consultation ---
Date of Consultation May 26, 2025 Impression / Recommendations Impression Diagnostically no evidence for current psychiatric mood or psychotic episode. Suspect recent visual hallucinations are due to significant vision disruption from advanced cataract. He denies any current depressive symptoms and is focused on activities he enjoys and reasons for living and has no history of past attempts. His ongoing status of being unhoused remains a big stressor though he notes he's found some good places to sleep overnight lately which are "scenic" and he is able to spend the day at [facility]. He is hopeful about eventual assisted living placement/SNF and longer term goals to improve his eyesight and health. He currently denies SI and HI. Acute risk of self-harm is low given denial of SI, future-focused, hopeful, no depressive symptoms, good problem solving skills. Acute risk of harm to others is low given denial of HI but chronic risk is moderate to high given antisocial PD, history of incarceration, history of irritability and past HI. He doesn't present with signs of maryellen nor psychosis. No current 302 criteria. No indication for psychiatric medication at this time. Overall, I spent a total of 80 minutes with this case including review of chart records, review of labwork, direct evaluation of the patient at bedside, counseling the patient, discussion of the patient with the Nurse and with the hospitalist provider, discussion with the psychiatric liason during clinical rounds and documentation in the electronic health record. (1) Psychosocial stressors: (2) Housing instability: Plan -Doesn't require 1-on-1 or suicide precautions -Can leave AMA if he desires this -No indication for psychiatric medication -Agree with ongoing inpatient and outpatient efforts to identify potential psychosocial resources as lack of housing remains his biggest stressor and most significant modifiable risk factor. Psych History Identifying Data Tigre is a 65 yo man with a history of HFrEF, COPD and HTN, antisocial personality disorder, polysubstance use disorder and current psychosocial stressors including being unhoused presenting with visual hallucinations. Psychiatry consulted for hallucinations and risk assessment. Chief Complaint "Much better". History of Present Illness Tyler presented to the hospital reporting visual changes following recent admission for chest pain and shortness of breath in April. While speaking with ED CM he initially denied SI then later reported SI and HI to a different ED CM and spoke to both about his desire to be placed in a custodial or assisted living facility. Today he reports his mood is "much better". Attributes this to being in the hospital and feeling as though progress is being made toward finding him housing and a way of getting his eye surgery completed noting "better just knowing there's some potential here". He denies current SI but does endorse chronic intermittent SI but denies any current plans nor intent and rather is very future-focused. Tells me about his goals for assisted living vs custodial, having eye and cardiac surgery eventually, getting a new senior producer for his phone and moving to [place] once his surgeries are completed. He states strong deterrents to suicide including "I still have things I have to live for" citing "love, art and my love of art". He asks about getting access to various art supplies while he is in the hospital. He denies current depressive symptoms reporting good appetite, stable sleep and various interests and denies hopelessness "it's the opposite of that I'm finally hopeful". He denies HI. He denies any symptoms of maryellen. He endorses sometimes seeing animals which he can reality-test, denies any other visual hallucinations. Denies auditory hallucinations. Tells me he views himself as "fiercely independent" and that he would only see himself trying to by suicide if he were to become "a warden of the state" and lose all of his independence. I clarified what he meant by this, given his request for custodial level of care, and he views being a warden of the state as very different from this and if "they took away all my choices like a POA but with finances and other things too". Clarified that it seems he means if he had to have a guardian, and was deemed incompetent of making all decisions, this would the one situation he identifies that would cause him to consider acting on chronic thoughts of suicide. He denies any other questions nor questions. States only other need is finding a better way to charge his cellphone. Allergies Allergy/AdvReac Type Severity Reaction Status Date / Time gabapentin Allergy Severe SHORT OF Verified 05/10/25 03:02 BREATH cat dander Allergy Intermediate itchy Verified 05/10/25 03:02 eyes, sneezing codeine AdvReac Intermediate GI upset Verified 05/10/25 03:02 Home Medications Medication Instructions Recorded Confirmed Type tramadol 50 mg tablet 50 mg PO TID PRN Pain #100 tabs 01/07/25 05/24/25 Rx metoprolol succinate 25 mg 25 mg PO HS #30 tabs 04/20/25 05/24/25 Rx tablet,extended release 24 hr rosuvastatin 20 mg tablet 20 mg PO DAILY #30 tabs 04/20/25 05/24/25 Rx cyclobenzaprine 10 mg tablet 10 mg PO TID PRN muscle spasms #90 05/12/25 05/24/25 Rx tabs Rollator w/ seat #1 ea 05/24/25 05/24/25 Rx apixaban 5 mg tablet (Eliquis) 5 mg PO DAILY 05/24/25 05/24/25 History sacubitril 24 mg-valsartan 26 mg 1 tab PO BID 05/24/25 05/24/25 History tablet (Entresto) Patient History Medical History COPD (chronic obstructive pulmonary disease) HFrEF (heart failure with reduced ejection fraction) Pulmonary embolism Homeless Contact with metalworking machinery as cause of accidental injury Wernicke encephalopathy Closed T3 fracture Screening for osteoporosis Hardware failure Diastolic dysfunction Closed fracture of left zygomatic arch Depression Antisocial personality disorder Unspecified mood [affective] disorder Constipation Polysubstance abuse Degenerative lumbar spinal stenosis Osteomyelitis of vertebra Homelessness Polysubstance use disorder Neurogenic claudication due to lumbar spinal stenosis Hypokalemia Elevated CPK Lumbar spinal stenosis Medical non-compliance Psoas abscess Lower back pain Discitis Encephalopathy Rib pain on left side Hyperglycemia Blood loss anemia LVH (left ventricular hypertrophy) Rib fracture left sided, remotely, healed without intervention- does have residual pain over area Obesity Osteoarthritis Hypertension Surgical History History of arthroscopy of shoulder left History of knee replacement right History of back surgery x5 total S/P TKR (total knee replacement) Family History Denies family history of Ovarian cancer Prostate cancer Myocardial infarction Breast cancer Colorectal cancer Social History Smoking Status: Current every day smoker Tobacco Type: Cigarettes Age Started Using Tobacco: 34; packs per day: 0.25; Cigarettes Per Day: 10; Second Hand Exposure: No; Do You Dip or Chew Tobacco: No; Hx Alcohol Use: No Hx Substance Use: No Preferred Language: Marshallese Communication Ability: Effective Visual Impairment: No Limitations Carbon Printer Required: No Beliefs That Will Affect Care: None marital status: Single Current Living Situation: Homeless Current Living Situation Comment: Patient lives alone in an apartment. Expressed that his housing is unsafe current occupational status: unemployed Other Information That Helps Us Care for You: No Feels Safe at Home: Yes Safety Concerns: Feels Safe At This Time Dental Care, Regularly: No Physical Activity Frequency: Does not Exercise Seatbelt Use: always Assistive Devices: None Physical Exam Psychiatric: Orientation: alert and oriented x 3 Apperance: appropriately dressed and appropriately groomed Eye Contact: good eye contact Motor Behavior: no abnormal motor movements Speech: normal rate/rhythm/volume of speech Affect: euthymic affect Mood: no depressed mood and no anxious mood Thought Process: linear/logical thought process Thought Content: reality based without delusions Suicidal Thoughts: denies suicidal thoughts Homicidal Thoughts: denies homicidal thoughts Hallucinations: no auditory hallucinations and no visual hallucinations Cognition: recent memory grossly intact, remote memory grossly intact, attention grossly intact and language grossly intact Estimated Intelligence: consistent with education level Insight: + fair insight Judgment: + fair judgement Vital Signs (Past 24 Hours): Last Vital Signs Temp 36.6 C 05/26/25 08:21 Pulse 81 05/26/25 08:21 Resp 20 05/26/25 08:21 BP 158/91 H 05/26/25 08:21 Pulse Ox 95 05/26/25 08:21 O2 Del Method Room Air 05/26/25 08:21 Results & Data (PSY) Medications Administered Apixaban (Apixaban 5 Mg Tablet) 5 mg PO DAILY CHIARA Stop: 06/24/25 08:59 Last Admin: 05/26/25 08:30 Dose: 5 mg Documented By: Admin: 05/25/25 09:20 Dose: 5 mg Documented By: MTM Metoprolol Succinate (Metoprolol Succ 25mg Ext Rel Tab) 25 mg PO HS CHIARA Stop: 06/23/25 22:02 Last Admin: 05/25/25 20:10 Dose: 25 mg Documented By: Admin: 05/24/25 22:44 Dose: 25 mg Documented By: KAUSHAL Miscellaneous (Remove Nicoderm Patch) 1 each N/A DAILY@0859 [facility] Stop: 06/24/25 08:58 Last Admin: 05/26/25 08:31 Dose: 1 each Documented By: Admin: 05/25/25 09:22 Dose: 1 each Documented By: FABIANA Nicotine (Nicotine 14 Mg/24 Hr Patch) 1 patch TD QAM [facility] Stop: 06/24/25 08:59 Last Admin: 05/26/25 08:29 Dose: 1 patch Documented By: Admin: 05/25/25 09:20 Dose: 1 patch Documented By: FABIANA Rosuvastatin Calcium (Rosuvastatin Calcium 20 Mg Tab) 20 mg PO DAILY [facility] Stop: 06/24/25 08:59 Last Admin: 05/26/25 08:29 Dose: 20 mg Documented By: Admin: 05/25/25 09:20 Dose: 20 mg Documented By: FABIANA Sacubitril/Valsartan (Valsartan/Sacubitril 26/24mg Tab) 1 tab PO BID [facility] Stop: 06/23/25 22:02 Last Admin: 05/26/25 08:29 Dose: 1 tab Documented By: Admin: 05/25/25 20:10 Dose: 1 tab Documented By: Admin: 05/25/25 09:20 Dose: 1 tab Documented By: Admin: 05/24/25 22:44 Dose: 1 tab Documented By: KAUSHAL Tramadol HCl (Tramadol Hcl 50 Mg Tablet) 50 mg PO TID PRN PRN Reason: Pain Stop: 06/23/25 22:02 Last Admin: 05/26/25 08:28 Dose: 50 mg Documented By: Admin: 05/25/25 20:10 Dose: 50 mg Documented By: QUINCY Coding Level of Care Code 29250 IN/OBS CONSULT LVL 5,80M Diagnoses Psychosocial stressors Z65.8 Housing instability Z59.819
--- NOTE | 2025-05-26 12:05 | Hospitalist Progress Note ---
Date of Service May 26, 2025 Assessment & Plan (1) Visual hallucination: Plan: -no evidence of illicit drugs or etoh -pt with depression and suicidal ideation -psych consult appreciated -no sucidial risk, d/c 1:1 -no evidence of psychosis (2) COPD (chronic obstructive pulmonary disease): Plan: -duonebs prn (3) HFrEF (heart failure with reduced ejection fraction): Plan: -con't metoprolol and rayna (4) HTN (hypertension): Plan: -metoprolol and rayna (5) Pulmonary embolism: Plan: -con't eliquis (6) Homeless: Plan: -Case management following up disposition options Plan 65yo male with history of HFrEF, COPD and HTN presenting with visual hallucinations. Admission and Anticipated Discharge Date Admission Date: May 26, 2025 Subjective No events overnight. Pt resting in bed. Review of Systems Review of Systems: CONST: Negative for fever, body aches and chills. HENT: Negative for neck pain/stiffness, headache, congestion, sore throat, swelling. EYES: Negative for discharge/pain or vision changes. RESP: Negative for cough/hemoptysis and shortness of breath. CV: Negative chest pain, difficulty breathing, palpitations. ABD: Negative pain, nausea, vomiting. : Negative increase frequency, dysuria, blood in urine or stool. MUSC: Negative for muscle aches, edema. SKIN: Negative rash, lesions/sores. NEURO: Negative headache, dizziness, weakness. Physical Exam Physical Exam: GENERAL APPEARANCE NAD, activity normal for age, well developed/ well nourished, no cyanosis, pallor, or diaphoresis. EYES lids/conjunctiva normal. EARS/NOSE/THROAT Mucous membranes moist, nares normal, lips/teeth normal uvula midline without oral pharyngeal erythema, exudate or swelling TMs normal bilaterally. No lymphangitis/lymphedema. HEAD/NECK normocephalic atraumatic, no facial trauma, neck is supple. RESPIRATORY respiratory effort normal, speaks in full sentences, no tripod position, no accessory muscle use. Lungs clear to auscultation without rhonchi, wheezes, rales CARDIAC Regular rate and rhythm, no edema. ABDOMINAL Soft, ND/NT. No evidence of fluid wave. No pulsatile masses on exam, rebound tenderness, Navarro sign or pain over Mcburney's point. MUSCLES/EXTREMITIES No abnormal range of motion, no swelling. SKIN Warm, pink and dry. No rashes, dermatoses, petechiae or lesions. NEUROLOGICAL Speech is clear and appropriate. Normal level of consciousness. Gait and coordination are normal. 5/5 strength in all extremities. PSYCH Normal mood and affect. Judgement/competence is appropriate Results & Data Results & Data Vital Signs (Past 12 Hours) Vital Signs Temp Pulse Pulse Resp BP BP Pulse Ox 05/26/25 11:54 85 20 161/99 H 98 05/26/25 08:21 36.6 C 81 20 158/91 H 95 05/26/25 07:14 82 05/26/25 03:44 36.5 C 76 18 148/82 H 92 O2 Del Method 05/26/25 11:54 Room Air 05/26/25 08:21 Room Air 05/26/25 07:14 05/26/25 03:44 Room Air PG Care Time/CCT Total # of Minutes Spent Total Time Spent with Patient: Total time spent is greater than 50% in coordination of care (as documented) at patient's floor/unit and/or counseling patient: Coding Level of Care Code 34839 SUB INP/OBS CARE 2/35MIN Diagnoses Visual hallucination R44.1 COPD (chronic obstructive pulmonary disease) J44.9 HFrEF (heart failure with reduced ejection fraction) I50.20 Primary hypertension I10 Hypertension type: primary hypertension Pulmonary embolism I26.99 Homeless Z59.00 (4) HTN (hypertension) Hypertension type: primary hypertension Qualified Code(s): I10 - Essential (primary) hypertension
--- NOTE | 2025-05-27 10:27 | Hospitalist Progress Note ---
Date of Service May 27, 2025 Assessment & Plan (1) Visual hallucination: Plan: -no evidence of illicit drugs or etoh -pt with depression and suicidal ideation -psych consult appreciated -no sucidial risk, d/c 1:1 -no evidence of psychosis (2) COPD (chronic obstructive pulmonary disease): Plan: -duonebs prn (3) HFrEF (heart failure with reduced ejection fraction): Plan: -con't metoprolol and rayna (4) HTN (hypertension): Plan: -metoprolol and rayna (5) Pulmonary embolism: Plan: -con't eliquis (6) Homeless: Plan: -Case management following up disposition options, PT/OT evaluation pending. Plan 65yo male with history of HFrEF, COPD and HTN presenting with visual hallucinations. Admission and Anticipated Discharge Date Admission Date: May 26, 2025 Subjective No events overnight, pt resting in chair. Review of Systems Review of Systems: CONST: Negative for fever, body aches and chills. HENT: Negative for neck pain/stiffness, headache, congestion, sore throat, swelling. EYES: Negative for discharge/pain or vision changes. RESP: Negative for cough/hemoptysis and shortness of breath. CV: Negative chest pain, difficulty breathing, palpitations. ABD: Negative pain, nausea, vomiting. : Negative increase frequency, dysuria, blood in urine or stool. MUSC: Negative for muscle aches, edema. SKIN: Negative rash, lesions/sores. NEURO: Negative headache, dizziness, weakness. Physical Exam Physical Exam: GENERAL APPEARANCE NAD, activity normal for age, well developed/ well nourished, no cyanosis, pallor, or diaphoresis. EYES lids/conjunctiva normal. EARS/NOSE/THROAT Mucous membranes moist, nares normal, lips/teeth normal uvula midline without oral pharyngeal erythema, exudate or swelling TMs normal bilaterally. No lymphangitis/lymphedema. HEAD/NECK normocephalic atraumatic, no facial trauma, neck is supple. RESPIRATORY respiratory effort normal, speaks in full sentences, no tripod position, no accessory muscle use. Lungs clear to auscultation without rhonchi, wheezes, rales CARDIAC Regular rate and rhythm, no edema. ABDOMINAL Soft, ND/NT. No evidence of fluid wave. No pulsatile masses on exam, rebound tenderness, Navarro sign or pain over Mcburney's point. MUSCLES/EXTREMITIES No abnormal range of motion, no swelling. SKIN Warm, pink and dry. No rashes, dermatoses, petechiae or lesions. NEUROLOGICAL Speech is clear and appropriate. Normal level of consciousness. Gait and coordination are normal. 5/5 strength in all extremities. PSYCH Normal mood and affect. Judgement/competence is appropriate Results & Data Results & Data Vital Signs (Past 12 Hours) Vital Signs Temp Pulse Resp BP BP Pulse Ox O2 Del Method 05/27/25 08:10 36.9 C 76 20 159/89 H 94 Room Air 05/26/25 23:16 37.5 C 78 18 149/75 H 92 Room Air PG Care Time/CCT Total # of Minutes Spent Total Time Spent with Patient: Total time spent is greater than 50% in coordination of care (as documented) at patient's floor/unit and/or counseling patient: Coding Level of Care Code 21696 SUB INP/OBS CARE 2/35MIN Diagnoses Visual hallucination R44.1 COPD (chronic obstructive pulmonary disease) J44.9 HFrEF (heart failure with reduced ejection fraction) I50.20 Primary hypertension I10 Hypertension type: primary hypertension Pulmonary embolism I26.99 Homeless Z59.00 (4) HTN (hypertension) Hypertension type: primary hypertension Qualified Code(s): I10 - Essential (primary) hypertension
--- NOTE | 2025-05-28 11:51 | Discharge Summary ---
Discharge Summary Date of Service May 28, 2025 Principal Dx & Hospital Course #1 = Principal Diagnosis (1) Visual hallucination: -no evidence of illicit drugs or etoh -pt with depression and suicidal ideation -psych consult appreciated -no sucidial risk, d/c 1:1 -no evidence of psychosis (2) COPD (chronic obstructive pulmonary disease): -duonebs prn (3) HFrEF (heart failure with reduced ejection fraction): -con't metoprolol and rayna (4) HTN (hypertension): -metoprolol and rayna (5) Pulmonary embolism: -con't eliquis (6) Homeless: -Case management following up disposition options, PT/OT evaluation pending. Plan 65yo male with history of HFrEF, COPD and HTN presenting with visual hallucinations. Admission HPI Per Admitting Provider Tigre Camacho is a 65yo unhoused male with history of COPD, HFrEF (EF 20-25% per echo 04/16/2025). He was recently admitted to [facility] from 04/16 - 04/20/2025 after presenting with chest pain and shortness of breath. Patient found to have segmental PE a well as atelectasis and rib fractures. He was managed with a heparin drip and ultimately discharged home on Eliquis. Patient presents today with complaint of hallucinations. He states that things look like "molding gwen". He states that today he was looking at the microwave and it turned into gwen. He reports that the lights in the room presently look like they're made of mcrae gwen. He also reports hearing voices telling him to get help. Patient denies fever, chills, falls or trauma. Denies EtOH or drug use. He does have chest pain and shortness of breath ongoing all day as well as abdominal pain and diarrhea. Patient manages his own medications but is not sure what he is taking. He was recently discharged on Eliquis but is uncertain if he is taking this medication. No additional complaints at this time. In the ER patient was evaluated by Psych liason and was noted to be suicidal and homicidal and states that he was not safe to be around people. He denies active plan. Patient has been staying at the skilled nursing [facility] and has been working with a social secretary, rUsula Bowling. He says that she is trying to get him placed in a SNF and that she has found two locations that will accept his insurance. In the ER he is afebrile, hypertensive Discharge Exam GENERAL APPEARANCE NAD, activity normal for age, well developed/ well nourished, no cyanosis, pallor, or diaphoresis. EYES lids/conjunctiva normal. EARS/NOSE/THROAT Mucous membranes moist, nares normal, lips/teeth normal uvula midline without oral pharyngeal erythema, exudate or swelling TMs normal bilaterally. No lymphangitis/lymphedema. HEAD/NECK normocephalic atraumatic, no facial trauma, neck is supple. RESPIRATORY respiratory effort normal, speaks in full sentences, no tripod position, no accessory muscle use. Lungs clear to auscultation without rhonchi, wheezes, rales CARDIAC Regular rate and rhythm, no edema. ABDOMINAL Soft, ND/NT. No evidence of fluid wave. No pulsatile masses on exam, rebound tenderness, Navarro sign or pain over Mcburney's point. MUSCLES/EXTREMITIES No abnormal range of motion, no swelling. SKIN Warm, pink and dry. No rashes, dermatoses, petechiae or lesions. NEUROLOGICAL Speech is clear and appropriate. Normal level of consciousness. Gait and coordination are normal. 5/5 strength in all extremities. PSYCH Normal mood and affect. Judgement/competence is appropriate Discharge Plan Discharge Items Patient Disposition: Home - Self-Care Reason For Visit: HALLUCINATIONS Discharge Diagnosis: home Condition on Discharge: Fair Activity: Resume your previous activity Non-emergency contact: Primary Care Provider Call non-emergency contact if: you have any medication questions Follow-up/Referrals: Uli Palencia III, CRNP [Primary Care Provider] - Diet: Regular Addtl Attending Provider Instructions: Follow with PMD in 1 week Pending Studies at Discharge: No Stand-Alone Forms: [employer], Smoking Cessation Medications and DC Order Prescriptions: Continued tramadol 50 mg tablet 50 mg PO TID PRN (Reason: Pain) Qty: 100 0RF cyclobenzaprine 10 mg tablet 10 mg PO TID PRN (Reason: muscle spasms) Qty: 90 0RF (DME) Rollator w/ seat See Rx Instructions .Route .MEDSUPPLY Qty: 1 0RF Rx Instructions: As directed rosuvastatin 20 mg Tablet 20 mg PO DAILY Qty: 30 0RF metoprolol succinate 25 mg tablet extended release 24 hr 25 mg PO HS Qty: 30 0RF Eliquis 5 mg tablet 5 mg PO DAILY sacubitril-valsartan [Entresto] 24-26 mg tablet 1 tab PO BID Discharge Orders: Discharge Order (Routine); Ordered 05/28/25 Ordered By: Moise Acuna Admission Data Admit Date/Time: 05/26/25 11:58 Attending Provider: Moise Acuna Admit Provider: Vivienne Anne Primary Care Provider: Uli Palencia III Other Providers: Vivienne Anne; Perlita Kessler; Jayson Cortes; Shannon Bess; Elizabeth Roladn; Jameson Nunes; Larissa Stark; Jesús Caro; Tammy Rowan; Phaneuf Hospital Stay Data Consultations 05/24/25 19:26 ED Decision to Admit Stat 05/25/25 14:36 Consult Psychiatry Routine Diagnostic Imagining Performed 05/24/25 15:44 CT head/brain wo con Stat Pending Results Patient Have Any Pending Studies at Discharge: No Discharge Instructions Given to Patient (Per Discharging Provider) Follow with PMD in 1 week Total Time Total Time Spent Total Time Spent (In Minutes): 50 Coding Level of Care Code 09373 INP/OBS DISCH >30 MIN Diagnoses Visual hallucination R44.1 COPD (chronic obstructive pulmonary disease) J44.9 HFrEF (heart failure with reduced ejection fraction) I50.20 Primary hypertension I10 Hypertension type: primary hypertension Pulmonary embolism I26.99 Homeless Z59.00
--- NOTE | 2025-05-28 14:01 | Electrocardiogram Report ---
Test Reason : Blood Pressure : */* mmHG Vent. Rate : 84 BPM Atrial Rate : 84 BPM P-R Int : 148 ms QRS Dur : 134 ms QT Int : 418 ms P-R-T Axes : * -17 -13 degrees QTcB Int : 493 ms Normal sinus rhythm Right bundle branch block Possible Inferior infarct (cited on or before 11-May-2025) Abnormal ECG When compared with ECG of 11-May-2025 14:12, No significant change was found Confirmed by Bernardino Angel ([id number]) on 05/28/2025 2:01:04 PM Referred By: Confirmed By: Bernardino Angel
--- NOTE | 2025-05-28 14:44 | Electrocardiogram Report ---
Test Reason : Blood Pressure : */* mmHG Vent. Rate : 78 BPM Atrial Rate : 78 BPM P-R Int : 156 ms QRS Dur : 140 ms QT Int : 420 ms P-R-T Axes : 82 -73 84 degrees QTcB Int : 478 ms Normal sinus rhythm with sinus arrhythmia Right bundle branch block Left anterior fascicular block Bifascicular block Abnormal ECG When compared with ECG of 24-May-2025 15:09, (unconfirmed) Left anterior fascicular block is now Present Borderline criteria for Inferior infarct are no longer Present Nonspecific T wave abnormality no longer evident in Inferior leads T wave inversion more evident in Anterior leads Confirmed by Bernardino Angel ([id number]) on 05/28/2025 2:43:34 PM Referred By: REFERRED SELF Confirmed By: Bernardino Angel
--- NOTE | 2025-05-29 10:16 | Hospitalist Progress Note ---
Date of Service May 29, 2025 Assessment & Plan (1) Visual hallucination: Plan: -no evidence of illicit drugs or etoh -pt with depression and suicidal ideation -psych consult appreciated -no sucidial risk, d/c 1:1 -no evidence of psychosis (2) COPD (chronic obstructive pulmonary disease): Plan: -duonebs prn (3) HFrEF (heart failure with reduced ejection fraction): Plan: -con't metoprolol and rayna (4) HTN (hypertension): Plan: -metoprolol and rayna (5) Pulmonary embolism: Plan: -con't eliquis (6) Homeless: Plan: -Case management following up disposition options, PT/OT evaluation pending. Plan 65yo male with history of HFrEF, COPD and HTN presenting with visual hallucinations. Pt homeless, requesting placement to [facility] or [facility], case managment following. Admission and Anticipated Discharge Date Admission Date: May 26, 2025 Subjective Pt awaiting possibility of placement. No events overnight. Review of Systems Review of Systems: CONST: Negative for fever, body aches and chills. HENT: Negative for neck pain/stiffness, headache, congestion, sore throat, swelling. EYES: Negative for discharge/pain or vision changes. RESP: Negative for cough/hemoptysis and shortness of breath. CV: Negative chest pain, difficulty breathing, palpitations. ABD: Negative pain, nausea, vomiting. : Negative increase frequency, dysuria, blood in urine or stool. MUSC: Negative for muscle aches, edema. SKIN: Negative rash, lesions/sores. NEURO: Negative headache, dizziness, weakness. Physical Exam Physical Exam: GENERAL APPEARANCE NAD, activity normal for age, well developed/ well nourished, no cyanosis, pallor, or diaphoresis. EYES lids/conjunctiva normal. EARS/NOSE/THROAT Mucous membranes moist, nares normal, lips/teeth normal uvula midline without oral pharyngeal erythema, exudate or swelling TMs normal bilaterally. No lymphangitis/lymphedema. HEAD/NECK normocephalic atraumatic, no facial trauma, neck is supple. RESPIRATORY respiratory effort normal, speaks in full sentences, no tripod position, no accessory muscle use. Lungs clear to auscultation without rhonchi, wheezes, rales CARDIAC Regular rate and rhythm, no edema. ABDOMINAL Soft, ND/NT. No evidence of fluid wave. No pulsatile masses on exam, rebound tenderness, Navarro sign or pain over Mcburney's point. MUSCLES/EXTREMITIES No abnormal range of motion, no swelling. SKIN Warm, pink and dry. No rashes, dermatoses, petechiae or lesions. NEUROLOGICAL Speech is clear and appropriate. Normal level of consciousness. Ga it and coordination are normal. 5/5 strength in all extremities. PSYCH Normal mood and affect. Judgement/competence is appropriate Results & Data Results & Data Vital Signs (Past 12 Hours) Vital Signs Temp Pulse Resp BP Pulse Ox O2 Del Method 05/29/25 07:37 36.5 C 78 16 152/94 H 95 Room Air 05/28/25 23:09 36.4 C L 83 20 159/92 H 94 Room Air PG Care Time/CCT Total # of Minutes Spent Total Time Spent with Patient: Total time spent is greater than 50% in coordination of care (as documented) at patient's floor/unit and/or counseling patient: Coding Level of Care Code 53013 SUB INP/OBS CARE 2/35MIN Diagnoses Visual hallucination R44.1 COPD (chronic obstructive pulmonary disease) J44.9 HFrEF (heart failure with reduced ejection fraction) I50.20 Primary hypertension I10 Hypertension type: primary hypertension Pulmonary embolism I26.99 Homeless Z59.00 (4) HTN (hypertension) Hypertension type: primary hypertension Qualified Code(s): I10 - Essential (primary) hypertension
--- NOTE | 2025-05-30 09:08 | Hospitalist Progress Note ---
Date of Service May 30, 2025 Assessment & Plan (1) Visual hallucination: Plan: -no evidence of illicit drugs or etoh -pt with depression and suicidal ideation -psych consult appreciated -no sucidial risk, d/c 1:1 -no evidence of psychosis (2) COPD (chronic obstructive pulmonary disease): Plan: -duonebs prn (3) HFrEF (heart failure with reduced ejection fraction): Plan: -con't metoprolol and rayna (4) HTN (hypertension): Plan: -metoprolol and rayna (5) Pulmonary embolism: Plan: -con't eliquis (6) Homeless: Plan: -Case management following up disposition options Plan 65yo male with history of HFrEF, COPD and HTN presenting with visual hallucinations. Pt homeless, requesting placement to [facility] or [place] care, case managment following. Admission and Anticipated Discharge Date Admission Date: May 26, 2025 Subjective No events overnight. Review of Systems Review of Systems: CONST: Negative for fever, body aches and chills. HENT: Negative for neck pain/stiffness, headache, congestion, sore throat, swelling. EYES: Negative for discharge/pain or vision changes. RESP: Negative for cough/hemoptysis and shortness of breath. CV: Negative chest pain, difficulty breathing, palpitations. ABD: Negative pain, nausea, vomiting. : Negative increase frequency, dysuria, blood in urine or stool. MUSC: Negative for muscle aches, edema. SKIN: Negative rash, lesions/sores. NEURO: Negative headache, dizziness, weakness. Physical Exam Physical Exam: GENERAL APPEARANCE NAD, activity normal for age, well developed/ well nourished, no cyanosis, pallor, or diaphoresis. EYES lids/conjunctiva normal. EARS/NOSE/THROAT Mucous membranes moist, nares normal, lips/teeth normal uvula midline without oral pharyngeal erythema, exudate or swelling TMs normal bilaterally. No lymphangitis/lymphedema. HEAD/NECK normocephalic atraumatic, no facial trauma, neck is supple. RESPIRATORY respiratory effort normal, speaks in full sentences, no tripod position, no accessory muscle use. Lungs clear to auscultation without rhonchi, wheezes, rales CARDIAC Regular rate and rhythm, no edema. ABDOMINAL Soft, ND/NT. No evidence of fluid wave. No pulsatile masses on exam, rebound tenderness, Navarro sign or pain over Mcburney's point. MUSCLES/EXTREMITIES No abnormal range of motion, no swelling. SKIN Warm, pink and dry. No rashes, dermatoses, petechiae or lesions. NEUROLOGICAL Speech is clear and appropriate. Normal level of consciousness. Gait and coordination are normal. 5/5 strength in all extremities. PSYCH Normal mood and affect. Judgement/competence is appropriate Results & Data Results & Data Vital Signs (Past 12 Hours) Vital Signs Temp Pulse Resp BP Pulse Ox O2 Del Method 05/30/25 07:49 36.7 C 79 18 155/83 H 95 Room Air 05/29/25 22:09 36.8 C 87 18 95 Room Air PG Care Time/CCT Total # of Minutes Spent Total Time Spent with Patient: Total time spent is greater than 50% in coordination of care (as documented) at patient's floor/unit and/or counseling patient: Coding Level of Care Code 01592 SUB INP/OBS CARE 2/35MIN Diagnoses Visual hallucination R44.1 COPD (chronic obstructive pulmonary disease) J44.9 HFrEF (heart failure with reduced ejection fraction) I50.20 Primary hypertension I10 Hypertension type: primary hypertension Pulmonary embolism I26.99 Homeless Z59.00 (4) HTN (hypertension) Hypertension type: primary hypertension Qualified Code(s): I10 - Essential (primary) hypertension
[2025-05-30] MEDS: MELATONIN 3 MG TAB PO PRN (20:27)
--- NOTE | 2025-05-31 08:08 | Hospitalist Progress Note ---
Date of Service May 31, 2025 Assessment & Plan (1) Visual hallucination: Plan: -no evidence of illicit drugs or etoh -pt with depression and suicidal ideation -psych consult appreciated -no sucidial risk, d/c 1:1 -no evidence of psychosis, psychiatry does not feel that there is a role for antipsychotic meds (2) COPD (chronic obstructive pulmonary disease): Plan: -duonebs prn (3) HFrEF (heart failure with reduced ejection fraction): Plan: -con't metoprolol and rayna (4) HTN (hypertension): Plan: -metoprolol and rayna (5) Pulmonary embolism: Plan: -con't eliquis Plan 65yo male with history of HFrEF, COPD and HTN presenting with visual hallucinations. No metabolic derangements were noted and pt now awaiting alternate living situation Pt homeless, requesting placement, case managment following. Admission and Anticipated Discharge Date Admission Date: May 26, 2025 Subjective pt is angry in communication style seems to be bothered mostly about not having phone, ID and bank card, states bank card was sent to out of the cold, does bank locally with [employer] Physical Exam Physical Exam: no physical ailments, cardiac is regular, lungs are clear Results & Data Results & Data Vital Signs (Past 12 Hours) Vital Signs Temp Pulse Pulse Resp BP Pulse Ox O2 Del Method 05/31/25 08:02 98.4 F 80 18 144/93 H 96 Room Air 05/31/25 01:11 97.7 F 78 16 136/62 94 Room Air 05/30/25 20:28 89 166/90 H PG Care Time/CCT Total # of Minutes Spent Total Time Spent with Patient: Total time spent is greater than 50% in coordination of care (as documented) at patient's floor/unit and/or counseling patient: Coding Level of Care Code 02065 SUB INP/OBS CARE 10/31MIN Diagnoses Visual hallucination R44.1 COPD (chronic obstructive pulmonary disease) J44.9 HFrEF (heart failure with reduced ejection fraction) I50.20 Primary hypertension I10 Hypertension type: primary hypertension Pulmonary embolism I26.99 (4) HTN (hypertension) Hypertension type: primary hypertension Qualified Code(s): I10 - Essential (primary) hypertension
--- NOTE | 2025-05-31 13:54 | Hospitalist Progress Note ---
Date of Service May 31, 2025 Assessment & Plan (1) Visual hallucination: Plan: -no evidence of illicit drugs or etoh -pt with depression and suicidal ideation -psych consult appreciated -no sucidial risk, d/c 1:1 -no evidence of psychosis, psychiatry does not feel that there is a role for antipsychotic meds (2) COPD (chronic obstructive pulmonary disease): Plan: -duonebs prn (3) HFrEF (heart failure with reduced ejection fraction): Plan: -con't metoprolol and rayna (4) HTN (hypertension): Plan: -metoprolol and rayna (5) Pulmonary embolism: Plan: -con't eliquis, Subacute pulmonary embolism Plan 65yo male with history of HFrEF, COPD and HTN presenting with visual hallucinations. No metabolic derangements were noted and pt now awaiting alternate living situation Pt homeless, requesting placement, case managment following. Admission and Anticipated Discharge Date Admission Date: May 26, 2025 Results & Data Results & Data Vital Signs (Past 12 Hours) Vital Signs Temp Pulse Resp BP Pulse Ox O2 Del Method 05/31/25 08:13 Room Air 05/31/25 08:02 98.4 F 80 18 144/93 H 96 Room Air PG Care Time/CCT Total # of Minutes Spent Total Time Spent with Patient: Total time spent is greater than 50% in coordination of care (as documented) at patient's floor/unit and/or counseling patient: Coding Level of Care Code None Diagnoses Visual hallucination R44.1 COPD (chronic obstructive pulmonary disease) J44.9 HFrEF (heart failure with reduced ejection fraction) I50.20 Primary hypertension I10 Hypertension type: primary hypertension Pulmonary embolism I26.99 (4) HTN (hypertension) Hypertension type: primary hypertension Qualified Code(s): I10 - Essential (primary) hypertension
[2025-06-01 08:25] LABS: Anion Gap 3.0 (3-11); Blood Urea Nitrogen 17.0 mg/dl (6-23); Calcium 8.7 mg/dl (8.6-10.3); Carbon Dioxide 29.0 mmol/L (21-32); Chloride 104.0 mmol/L (98-107); Creatinine Clr Calc Pharmacy 81.3 ml/min; Glucose 101.0 mg/dl (70-99(Fasting)); Potassium 5.5 mmol/L (3.5-5.1); Sodium 136.0 mmol/L (136-145)
[2025-06-01 08:43] LABS: Hematocrit (blood only) 39.3 % (42.0-52.0); Hemoglobin 11.2 g/dl (14.0-18.0); Mean Corpuscular Hemoglobin 21.3 pg (25.0-34.0); Mean Corpuscular Volume 74.6 fL (80.0-100.0); Platelet Count 215 K/uL (130-400); RDW Standard Deviation 55.5 fL (36.4-46.3); Red Blood Count 5.27 M/uL (4.70-6.10); White Blood Count 8.83 K/ul (4.8-10.8)
--- NOTE | 2025-06-02 19:25 | Hospitalist Progress Note ---
Date of Service June 02, 2025 Assessment & Plan (1) Visual hallucination: Plan: -no evidence of illicit drugs or etoh -pt with depression and suicidal ideation -psych consult appreciated -no sucidial risk, d/c 1:1 -no evidence of psychosis, psychiatry does not feel that there is a role for antipsychotic meds (2) COPD (chronic obstructive pulmonary disease): Plan: -duonebs prn (3) HFrEF (heart failure with reduced ejection fraction): Plan: -con't metoprolol and rayna (4) HTN (hypertension): Plan: -metoprolol and rayna (5) Pulmonary embolism: Plan: -con't eliquis, Subacute pulmonary embolism Plan 65yo male with history of HFrEF, COPD and HTN presenting with visual hallucinations. No metabolic derangements were noted and pt now awaiting alternate living situation Pt homeless, requesting placement, case managment following. Admission and Anticipated Discharge Date Admission Date: May 26, 2025 Subjective pt is much more cooperative, has no focal complaints seems to be bothered mostly about not having phone, ID and bank card, states bank card was sent to out of the cold, does bank locally with [employer] are working with police to help locate these Physical Exam Physical Exam: no physical ailments, cardiac is regular, lungs are clear Results & Data Results & Data Vital Signs (Past 12 Hours) Vital Signs Temp Pulse Resp BP Pulse Ox O2 Del Method 06/02/25 14:48 97.9 F 83 16 143/78 H 94 Room Air 06/02/25 08:52 Room Air PG Care Time/CCT Total # of Minutes Spent Total Time Spent with Patient: Total time spent is greater than 50% in coordination of care (as documented) at patient's floor/unit and/or counseling patient: Coding Level of Care Code 17759 SUB INP/OBS CARE 10/31MIN Diagnoses Visual hallucination R44.1 COPD (chronic obstructive pulmonary disease) J44.9 HFrEF (heart failure with reduced ejection fraction) I50.20 Primary hypertension I10 Hypertension type: primary hypertension Pulmonary embolism I26.99 (4) HTN (hypertension) Hypertension type: primary hypertension Qualified Code(s): I10 - Essential (primary) hypertension
[2025-06-03 20:08] VITALS: RESP 18
[2025-06-04 07:22] VITALS: BP 155/83; PULSE 81; TEMP 98.2; O2SAT 95
--- NOTE | 2025-06-04 10:14 | Discharge Summary ---
Discharge Summary Date of Service June 04, 2025 Principal Dx & Hospital Course #1 = Principal Diagnosis (1) Visual hallucination: (2) COPD (chronic obstructive pulmonary disease): -duonebs prn (3) HFrEF (heart failure with reduced ejection fraction): -con't metoprolol and rayna (4) HTN (hypertension): (5) Pulmonary embolism: Plan 65yo male with history of HFrEF, COPD and HTN presenting with visual hallucinations. No metabolic derangements were noted and pt now awaiting alternate living situation. 06/04: pt offering no new medical complaints. he states he is feeling better. #Visual hallucination: - no evidence of illicit drugs or etoh - pt with depression and suicidal ideation - psych consult appreciated - no suicidal risk, d/c 1:1 - no evidence of psychosis, psychiatry does not feel that there is a role for antipsychotic meds #COPD (chronic obstructive pulmonary disease): - duonebs prn #HFrEF (heart failure with reduced ejection fraction): #HTN - con't metoprolol and rayna - discussed with CM, generic entresto is $700, spoke with pharmacist at [facility] (brand name sent as this is cheaper) #Subacute Pulmonary embolism: - con't eliquis #Dispo: pt homeless, CM support appreciated, pt being discharged to [facility] HPI Per Admitting Provider Tigre Camacho is a 65yo unhoused male with history of COPD, HFrEF (EF 20-25% per echo 04/16/2025). He was recently admitted to [facility] from 04/16 - 04/20/2025 after presenting with chest pain and shortness of breath. Patient found to have segmental PE a well as atelectasis and rib fractures. He was managed with a heparin drip and ultimately discharged home on Eliquis. Patient presents today with complaint of hallucinations. He states that things look like "molding gwen". He states that today he was looking at the microwave and it turned into gwen. He reports that the lights in the room presently look like they're made of mcrae gwen. He also reports hearing voices telling him to get help. Patient denies fever, chills, falls or trauma. Denies EtOH or drug use. He does have chest pain and shortness of breath ongoing all day as well as abdominal pain and diarrhea. Patient manages his own medications but is not sure what he is taking. He was recently discharged on Eliquis but is uncertain if he is taking this medication. No additional complaints at this time. In the ER patient was evaluated by Psych liason and was noted to be suicidal and homicidal and states that he was not safe to be around people. He denies active plan. Patient has been staying at the long term [facility] and has been working with a social work associate, Ursula Bowling. He says that she is trying to get him placed in a SNF and that she has found two locations that will accept his insurance. In the ER he is afebrile, hypertensive Discharge Exam Gen: disheveled, no acute distress, lying in bed comfortable HEENT: NC/AT, MMM Lungs: nonlabored breathing, CTAB CVS: s1s2nl, RRR Abd: nl bowel sounds, soft, NT / ND : no yates Ext: no edema Neuro: AAOx3 Psych: calm, cooperative Discharge Plan Discharge Items Patient Disposition: Personal Half-Way Reason For Visit: HALLUCINATIONS Discharge Diagnosis: delirium resolved Condition on Discharge: Fair Activity: Resume your previous activity Non-emergency contact: Primary Care Provider Call non-emergency contact if: you have any medication questions Follow-up/Referrals: Uli Palencia III, CRNP [Primary Care Provider] - Diet: Regular Addtl Attending Provider Instructions: Follow with PMD in 1 week Pending Studies at Discharge: No Stand-Alone Forms: My [employer], Pain - Opioid Pain Management, Smoking Cessation Skilled Items Patient informed of condition?: Yes DNR: Yes Discharge Level of Care: Other Communicable Disease: No Discharge Prognosis: Stable Lines: None Urinary Catheter: No Medications and DC Order Prescriptions: Continued tramadol 50 mg tablet 50 mg PO TID PRN (Reason: Pain) Qty: 100 0RF (DME) Rollator w/ seat See Rx Instructions .Route .MEDSUPPLY Qty: 1 0RF Rx Instructions: As directed metoprolol succinate 25 mg tablet extended release 24 hr 25 mg PO HS Qty: 30 5RF rosuvastatin 20 mg Tablet 20 mg PO DAILY Qty: 30 5RF Eliquis 5 mg tablet 5 mg PO DAILY Qty: 60 5RF sacubitril-valsartan [Entresto] 24-26 mg tablet 1 tab PO BID Qty: 60 5RF Discontinued cyclobenzaprine 10 mg tablet 10 mg PO TID PRN (Reason: muscle spasms) Qty: 90 0RF Discharge Orders: Discharge Order (Routine); Ordered 06/04/25 Ordered By: Erich Menezes Admission Data Admit Date/Time: 05/26/25 11:58 Attending Provider: Margarita Perea Admit Provider: Vivienne Anne Primary Care Provider: Uli Palencia III Other Providers: Vivienne Anne; Perlita Kessler; Jayson Cortes; Shannon Carter; Elizabeth Roldan; Jameson Nunes; Larissa Stark; Jesús Caro; Tammy Rowan; [facility]; [facility], Other Interventions: Discharge Summary Assessment (RN) Last Done: 06/04/25 09:17 Hospital Stay Data Consultations 05/24/25 19:26 ED Decision to Admit Stat 05/25/25 14:36 Consult Psychiatry Routine Diagnostic Imagining Performed 05/24/25 15:44 CT head/brain wo con Stat Pending Results Patient Have Any Pending Studies at Discharge: No Discharge Instructions Given to Patient (Per Discharging Provider) Follow with PMD in 1 week Total Time Total Time Spent Total Time Spent (In Minutes): 33 Coding Level of Care Code 20429 INP/OBS DISCH >30 MIN Diagnoses Visual hallucination R44.1 COPD (chronic obstructive pulmonary disease) J44.9 HFrEF (heart failure with reduced ejection fraction) I50.20 Primary hypertension I10 Hypertension type: primary hypertension Pulmonary embolism I26.99
== END 2025-06-04 11:55 | disposition home or self-care (01) | DRG 124 ==
LOC: EDINP 14:45 → ED 14:45 → SUATTDRO 20:11 → 2W 05-25 00:10 → SUATTDRO 05-26 11:58 → 3N 05-27 14:18